=== PATIENT | female | born 1955 | race African-American/Black ===

== ENCOUNTER 2019-05-24 18:51 | Inpatient (IN) | payer OTHER ==
[2019-05-24 19:58] LABS: Protime INR 1.15
[2019-05-24] MEDS ORDERED: METHYLPREDNISOLONE 125 MG INJ ONE (19:58)
[2019-05-24] MEDS ORDERED: ALBUTEROL 2.5 MG/3 ML NEB SOL ONE (19:58)
[2019-05-24] MEDS ORDERED: IPRATROPIUM BROM 0.5MG/2.5ML ONE (19:58)
[2019-05-24 19:59] LABS: Absolute Lymphocytes (CBC) 1.1 K/uL (0.7-4.9); Basophils % 0.7 % (0-1.3); Hematocrit 37.2 % (36.0-45.0); Lymphocytes % 20.4 % (15.3-44.8); MPV 10.3 fL (7.6-11.3); RBC Red Blood Cell Count 3.95 M/uL (3.86-4.86)
--- NOTE | 2019-05-24 20:01 | RAD REPORT ---
EXAM DESCRIPTION: [place] Single View05/24/2019 7:43 pm CLINICAL HISTORY: Chest pain COMPARISON: 2017 FINDINGS: Mild bilateral pulmonary opacities The heart is moderately to markedly enlarged IMPRESSION: Mild CHF
[2019-05-24 20:09] LABS: Albumin 3.7 g/dL (3.4-5.0); Bilirubin Direct 0.1 mg/dL (0-0.2); Bilirubin Total 0.4 mg/dL (0.2-1.0); Magnesium 2.1 mg/dL (1.8-2.4); Potassium 4.2 mmol/L (3.5-5.1); Protein, Total 8.5 g/dL (6.4-8.2); Troponin (Emerg Dept Use Only) 0.12 ng/mL (0.0-0.045)
--- NOTE | 2019-05-24 20:10 | ER ---
Nurse's Notes [facility] Name: Mellisa Patterson Age: 64 yrs Sex: Female : 1955 Arrival Date: 05/24/2019 Time: 18:54 Bed 20 Private MD: Eduar Plascencia Diagnosis: Dyspnea;Unspecified combined systolic (congestive) and diastolic (congestive) heart failure;Essential (primary) hypertension;Asthma;Hypoxemia;Obesity, unspecified Presentation: 05/24 19:06 Presenting complaint: SOB x 1 week. Seen by PCP las week and started on Entresto for a hb fib. Transition of care: patient was not received from another setting of care. Onset of symptoms was May 24, 2019. Risk Assessment: Do you want to hurt yourself or someone else? Patient reports no desire to harm self or others. Care prior to arrival: None. 19:06 Method Of Arrival: Wheelchair hb 19:06 Acuity: JESI 3 hb 19:40 Initial Sepsis Screen: Does the patient meet any 2 criteria? RR > 20 per min. No. rr5 Patient's initial sepsis screen is negative. Does the patient have a suspected source of infection? Yes: Skin breakdown/wound. Triage Assessment: 19:30 Respiratory: Reports shortness of breath the patient has mild shortness of breath. rr5 Historical: - Allergies: 19:08 insect venom; hb - Home Meds: 19:51 amiodarone 200 mg oral tab 2 times per day [Active]; allopurinol 300 mg Oral tab 1 tab rr5 once daily [Active]; aspirin 81 mg Oral TbEC [Active]; calcium + D3 [Active]; clopidogrel 75 mg oral tab 1 tab once daily [Active]; clonidine HCl 0.1 mg oral tab 1 tab 3 times per day [Active]; carvedilol 25 mg Oral tab 1 tab three times a day [Active]; cyclobenzaprine 10 mg Oral tab 1 tab 3 times per day [Active]; D3 vitamin [Active]; Xopenex 1.25 mg/3 mL Nebulizer nebu 3 mL every 6 hours [Active]; Triamcinolone Acetonide [place] [Active]; furosemide 60 mg Oral tab [Active]; hydralazine 50 mg Oral tab 1 tab three times a day [Active]; hydroxyzine HCl 25 mg Oral tab 1 tab 3 times per day [Active]; hydro DP syrup [Active]; lidocaine 5 % ointment [Active]; magnesium oxide 250 mg Oral tab [Active]; Nitrostat 0.4 mg SL subl [Active]; Lidex Topical [Active]; potassium chloride 10 mEq Oral cpER [Active]; Entresto oral oral [Active]; Santyl Topical [Active]; sulfadiazine miscellaneous [Active]; Super B-50 Complex oral oral [Active]; losartan oral oral [Active]; Vitamin E Oral [Active]; Xarelto 15 mg oral tab [Active]; - PMHx: 19:51 CHF; Gout; Hypertension; venous insufficiency; wounds; Bronchitis; Atrial Fib; rr5 - PSHx: 19:51 ; ectopic ; blood clot removal left leg; torn artery left leg; rr5 - Immunization history:: Adult Immunizations up to date. - Social history:: Smoking status: Patient uses tobacco products, 1/4 pack a day, Patient/guardian denies using alcohol, street drugs. - Ebola Screening: : Patient negative for fever greater than or equal to 101.5 degrees Fahrenheit, and additional compatible Ebola Virus Disease symptoms Patient denies exposure to infectious person Patient denies travel to an Ebola-affected area in the 21 days before illness onset. Screenin:53 Abuse screen: Denies threats or abuse. Denies injuries from another. Nutritional rr5 screening: No deficits noted. Tuberculosis screening: No symptoms or risk factors identified. Fall Risk IV access (20 points). Total [place] Fall Scale indicates No Risk (0-24 pts). Assessment: 19:30 General: Appears uncomfortable, mild distress. Behavior is calm, cooperative, rr5 appropriate for age. 19:30 Pain: Complains of pain in chest Pain does not radiate. Pain currently is 8 out of 10 rr5 on a pain scale. Quality of pain is described as aching, Pain began gradually, Is intermittent. Neuro: Level of Consciousness is awake, alert, obeys commands, Oriented to person, place, time, situation, Appropriate for age. Cardiovascular: Reports chest pain, shortness of breath, high blood pressure Capillary refill < 3 seconds Patient's skin is warm and dry. Rhythm is sinus bradycardia. Respiratory: Airway is patent Respiratory effort is shallow, Respiratory pattern is tachypnea Breath sounds with wheezes. GI: No signs and/or symptoms were reported involving the gastrointestinal system. : No signs and/or symptoms were reported regarding the genitourinary system. EENT: No signs and/or symptoms were reported regarding the EENT system. Derm: Skin is dry, Skin temperature is warm Wound noted left leg Wound is swelling at left leg post surgical vascular operation. Musculoskeletal: Swelling present in left leg. 20:50 Reassessment: Patient appears in no apparent distress at this time. Patient is alert, rr5 oriented x 3, equal unlabored respirations, skin warm/dry/pink. much better now as verbalized Patient states symptoms have improved. 21:30 Reassessment: able to go to restroom steady gait noted. patient refused for pereira rr5 catheter. 22:00 Reassessment: Patient appears in no apparent distress at this time. hospitalist came rr5 and examined the patient. patient refused to be admitted. hospitalist talked to dr. Nolasco, ED provider encourage the patient to stay in the hospital. Patient states symptoms have improved. 22:40 Reassessment: Patient appears in no apparent distress at this time. Patient is alert, rr5 oriented x 3, equal unlabored respirations, skin warm/dry/pink. awaiting for room assignment Patient states feeling better. Patient states symptoms have improved. 23:15 Reassessment: Patient appears in no apparent distress at this time. Patient is alert, rr5 oriented x 3, equal unlabored respirations, skin warm/dry/pink. 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 no complaints made. Vital Signs: 19:08 BP 197 / 108; Pulse 53; Resp 24; Temp 97.5; Pulse Ox 94% on R/A; Weight 123.38 kg; hb Height 5 ft. 7 in. (170.18 cm); Pain 8/10; 20:15 BP 201 / 105; Pulse 58; Resp 26; Pulse Ox 98% on 15% Nebulizer Mask; rr5 21:00 BP 199 / 105; Pulse 57; Resp 23; Pulse Ox 98% on 2 lpm NC; rr5 21:50 BP 195 / 110; Pulse 55; Resp 24; Temp 97.8; Pulse Ox 99% on 2 lpm NC; rr5 22:30 BP 161 / 95; Pulse 61; Resp 25; Pulse Ox 98% on 2 lpm NC; rr5 22:58 BP 157 / 93; Pulse 58; Resp 22; Temp 98.7; Pulse Ox 98% on R/A; rr5 19:08 Body Mass Index 42.60 (123.38 kg, 170.18 cm) hb ED Course: 18:54 Patient arrived in ED. mr 18:54 Eduar Plascencia MD is Private Physician. mr 19:06 Arm band placed on. hb 19:08 Triage completed. hb 19:09 Bhavik Rainey, JOSE LUIS is Primary Nurse. rr5 19:17 Jeffrey Nolasco MD is Attending Physician. demetrius 19:30 Patient has correct armband on for positive identification. Placed in gown. Bed in low rr5 position. Call light in reach. Side rails up X2. potline monitor on. Pulse ox on. NIBP on. 19:30 Inserted saline lock: 20 gauge in right antecubital area, using aseptic technique. ds4 Blood collected. 19:35 EKG done, by ED staff, reviewed by Jeffrey Nolasco MD. rr5 19:40 Basic Metabolic Panel Sent. ds4 19:40 CBC with Diff Sent. ds4 19:40 LFT's Sent. ds4 19:40 Magnesium Sent. ds4 19:40 NT PRO-BNP Sent. ds4 19:40 PT-INR Sent. ds4 19:40 Troponin (emerg Dept Use Only) Sent. ds4 19:43 XRAY Chest (1 view) In Process Unspecified. EDMS 20:07 Thompson Carrillo is Hospitalizing Provider. demetrius 22:59 No provider procedures requiring assistance completed. Patient admitted, IV remains in rr5 place. intact, No redness/swelling at site. Administered Medications: 20:00 Drug: AtroVENT Aerosol 0.5 mg Route: Inhalation; rr5 22:00 Follow up: Response: No adverse reaction; Wheezing diminished rr5 20:00 Drug: Albuterol 2.5 mg Route: Inhalation; rr5 21:00 Follow up: Response: No adverse reaction; Wheezing diminished rr5 20:00 Drug: Albuterol 2.5 mg Route: Inhalation; rr5 20:00 Drug: Albuterol 2.5 mg Route: Inhalation; rr5 20:03 Drug: SOLU-Medrol 125 mg Route: IVP; Site: right antecubital; rr5 21:00 Follow up: Response: No adverse reaction rr5 20:25 Drug: Lasix 40 mg Route: IVP; Site: right antecubital; rr5 21:25 Follow up: Response: No adverse reaction rr5 20:30 Drug: hydrALAZINE 10 mg Route: IV; Rate: per protocol; Site: right antecubital; rr5 21:30 Follow up: Response: No adverse reaction; Blood pressure is lowered; IV Status: rr5 Completed infusion 20:35 Drug: Nitro-Bid Ointment 2 % 1 inches {Note: left.} Route: Transdermal; Site: anterior rr5 chest wall; 21:35 Follow up: Response: No adverse reaction rr5 20:43 CANCELLED (Other Intervention Used): Xopenex 1.25 mg Inhalation once rr5 21:50 Drug: HydrALAZINE 25 mg Route: PO; rr5 22:49 Follow up: Response: No adverse reaction; Blood pressure is lowered rr5 21:51 Drug: hydrALAZINE 10 mg Route: IV; Rate: per protocol; Site: right antecubital; rr5 22:48 Follow up: Response: Blood sugar is lowered; IV Status: Completed infusion rr5 21:55 Drug: Tylenol 1000 mg Route: PO; rr5 22:51 Follow up: Response: No adverse reaction; Pain is decreased rr5 Intake: 23:20 3x voided post lasix rr5 Output: 23:20 Urine: 1100ml (Voided); Total: 1100ml. rr5 23:20 3x voided post lasix rr5 Outcome: 20:08 Decision to Hospitalize by Provider. demetrius 23:00 Instructed on the need for admit. rr5 23:15 Admitted to Tele accompanied by corbin, via wheelchair, room 425, with chart, Report rr5 called to daily 23:15 Condition: stable 05/25 00:17 Patient left the ED. rr5 Signatures: Dispatcher [employer] Jeffrey Grossman MD MD cha Rivera, Mary Diana, Thad ds4 Alexus Coppola, JOSE LUIS RN Bhavik Manzano RN RN rr5
--- NOTE | 2019-05-24 20:10 | EDPHYS ---
Physician Documentation [facility] Name: Mellisa Patterson Age: 64 yrs Sex: Female : 1955 Arrival Date: 05/24/2019 Time: 18:54 Bed 20 Private MD: Eduar Plascencia ED Physician Jeffrey Nolasco HPI: 05/24 20:04 This 64 yrs old Black Female presents to ER via Wheelchair with complaints of Breathing demetrius Difficulty, High Blood Pressure. 20:04 The patient has shortness of breath at rest, with light activity. Onset: The demetrius symptoms/episode began/occurred 2 day(s) ago. Duration: The symptoms are continuous, and are steadily getting worse. The patient's shortness of breath is aggravated by light activity, supine position. Associated signs and symptoms: The patient has no apparent associated signs or symptoms. Severity of symptoms: At their worst the symptoms were moderate in the emergency department the symptoms are unchanged. The patient has not experienced similar symptoms in the past. Historical: - Allergies: 19:08 insect venom; hb - Home Meds: 19:51 amiodarone 200 mg oral tab 2 times per day [Active]; allopurinol 300 mg Oral tab 1 tab rr5 once daily [Active]; aspirin 81 mg Oral TbEC [Active]; calcium + D3 [Active]; clopidogrel 75 mg oral tab 1 tab once daily [Active]; clonidine HCl 0.1 mg oral tab 1 tab 3 times per day [Active]; carvedilol 25 mg Oral tab 1 tab three times a day [Active]; cyclobenzaprine 10 mg Oral tab 1 tab 3 times per day [Active]; D3 vitamin [Active]; Xopenex 1.25 mg/3 mL Nebulizer nebu 3 mL every 6 hours [Active]; Triamcinolone Acetonide [place] [Active]; furosemide 60 mg Oral tab [Active]; hydralazine 50 mg Oral tab 1 tab three times a day [Active]; hydroxyzine HCl 25 mg Oral tab 1 tab 3 times per day [Active]; hydro DP syrup [Active]; lidocaine 5 % ointment [Active]; magnesium oxide 250 mg Oral tab [Active]; Nitrostat 0.4 mg SL subl [Active]; Lidex Topical [Active]; potassium chloride 10 mEq Oral cpER [Active]; Entresto oral oral [Active]; Santyl Topical [Active]; sulfadiazine miscellaneous [Active]; Super B-50 Complex oral oral [Active]; losartan oral oral [Active]; Vitamin E Oral [Active]; Xarelto 15 mg oral tab [Active]; - PMHx: 19:51 CHF; Gout; Hypertension; venous insufficiency; wounds; Bronchitis; Atrial Fib; rr5 - PSHx: 19:51 ; ectopic ; blood clot removal left leg; torn artery left leg; rr5 - Immunization history:: Adult Immunizations up to date. - Social history:: Smoking status: Patient uses tobacco products, 1/4 pack a day, Patient/guardian denies using alcohol, street drugs. - Ebola Screening: : Patient negative for fever greater than or equal to 101.5 degrees Fahrenheit, and additional compatible Ebola Virus Disease symptoms Patient denies exposure to infectious person Patient denies travel to an Ebola-affected area in the 21 days before illness onset. ROS: 20:05 Constitutional: Negative for fever, chills, and weight loss, Eyes: Negative for injury, demetrius pain, redness, and discharge, ENT: Negative for injury, pain, and discharge, Neck: Negative for injury, pain, and swelling, Abdomen/GI: Negative for abdominal pain, nausea, vomiting, diarrhea, and constipation, Back: Negative for injury and pain, : Negative for injury, bleeding, discharge, and swelling, MS/Extremity: Negative for injury and deformity, Skin: Negative for injury, rash, and discoloration, Neuro: Negative for headache, weakness, numbness, tingling, and seizure, Psych: Negative for depression, anxiety, suicide ideation, homicidal ideation, and hallucinations, Allergy/Immunology: Negative for hives, rash, and allergies, Endocrine: Negative for neck swelling, polydipsia, polyuria, polyphagia, and marked weight changes, Hematologic/Lymphatic: Negative for swollen nodes, abnormal bleeding, and unusual bruising. 20:05 Cardiovascular: Positive for chest pain, with cough. 20:05 Respiratory: Positive for cough, shortness of breath, on exertion. wheezing. Exam: 20:05 Constitutional: This is a well developed, well nourished patient who is awake, alert, demetrius and in no acute distress. Head/Face: Normocephalic, atraumatic. Eyes: Pupils equal round and reactive to light, extra-ocular motions intact. Lids and lashes normal. Conjunctiva and sclera are non-icteric and not injected. Cornea within normal limits. Periorbital areas with no swelling, redness, or edema. ENT: Nares patent. No nasal discharge, no septal abnormalities noted. Tympanic membranes are normal and external auditory canals are clear. Oropharynx with no redness, swelling, or masses, exudates, or evidence of obstruction, uvula midline. Mucous membranes moist. Neck: Trachea midline, no thyromegaly or masses palpated, and no cervical lymphadenopathy. Supple, full range of motion without nuchal rigidity, or vertebral point tenderness. No Meningismus. Chest/axilla: Normal chest wall appearance and motion. Nontender with no deformity. No lesions are appreciated. Abdomen/GI: Soft, non-tender, with normal bowel sounds. No distension or tympany. No guarding or rebound. No evidence of tenderness throughout. Back: No spinal tenderness. No costovertebral tenderness. Full range of motion. Female : Normal external genitalia. Skin: Warm, dry with normal turgor. Normal color with no rashes, no lesions, and no evidence of cellulitis. MS/ Extremity: Pulses equal, no cyanosis. Neurovascular intact. Full, normal range of motion. Neuro: Awake and alert, GCS 15, oriented to person, place, time, and situation. Cranial nerves II-XII grossly intact. Motor strength 5/5 in all extremities. Sensory grossly intact. Cerebellar exam normal. Normal gait. Psych: Awake, alert, with orientation to person, place and time. Behavior, mood, and affect are within normal limits. 20:05 Cardiovascular: Rate: tachycardic, Rhythm: regular, Pulses: Pulses are 4+ in bilateral radial, brachial, femoral, popliteal, posterior tibial and and dorsalis pedis arteries.. Heart sounds: normal, Edema: 2+ edema to level of left midcalf and right midcalf, JVD: is noted bilaterally, to 2 cm. Vital Signs: 19:08 BP 197 / 108; Pulse 53; Resp 24; Temp 97.5; Pulse Ox 94% on R/A; Weight 123.38 kg; hb Height 5 ft. 7 in. (170.18 cm); Pain 8/10; 20:15 BP 201 / 105; Pulse 58; Resp 26; Pulse Ox 98% on 15% Nebulizer Mask; rr5 21:00 BP 199 / 105; Pulse 57; Resp 23; Pulse Ox 98% on 2 lpm NC; rr5 21:50 BP 195 / 110; Pulse 55; Resp 24; Temp 97.8; Pulse Ox 99% on 2 lpm NC; rr5 22:30 BP 161 / 95; Pulse 61; Resp 25; Pulse Ox 98% on 2 lpm NC; rr5 22:58 BP 157 / 93; Pulse 58; Resp 22; Temp 98.7; Pulse Ox 98% on R/A; rr5 19:08 Body Mass Index 42.60 (123.38 kg, 170.18 cm) hb MDM: 19:17 Patient medically screened. [facility] 20:06 Data reviewed: vital signs, nurses notes, lab test result(s), EKG, radiologic studies, demetrius plain films. 05/24 19:22 Order name: Basic Metabolic Panel; Complete Time: 21:25 ds4 05/24 19:22 Order name: CBC with Diff; Complete Time: 20:01 ds4 05/24 19:22 Order name: LFT's; Complete Time: 21:25 ds4 05/24 19:22 Order name: Magnesium; Complete Time: 21:25 ds4 05/24 19:22 Order name: NT PRO-BNP; Complete Time: 21:25 ds4 05/24 19:22 Order name: PT-INR; Complete Time: 20:10 ds4 05/24 19:22 Order name: Troponin (emerg Dept Use Only); Complete Time: 21:25 ds4 05/24 19:22 Order name: XRAY Chest (1 view); Complete Time: 20:10 ds4 05/24 20:13 Order name: Lipase; Complete Time: 21:25 EDMS 05/24 21:12 Order name: Urine Dipstick--Ancillary (enter results) cm6 05/24 21:28 Order name: Urine Microscopic Only rr5 05/24 19:22 Order name: EKG; Complete Time: 19:23 ds4 05/24 19:22 Order name: Cardiac monitoring; Complete Time: 19:39 ds4 05/24 19:22 Order name: EKG - Nurse/Tech; Complete Time: 19:39 ds4 05/24 19:22 Order name: IV Saline Lock; Complete Time: 19:39 ds4 05/24 19:22 Order name: Labs collected and sent; Complete Time: 19:39 ds4 05/24 19:22 Order name: O2 Per Protocol; Complete Time: 19:39 ds4 05/24 19:22 Order name: O2 Sat Monitoring; Complete Time: 19:39 ds4 05/24 22:22 Order name: CONS Physician Consult EDAL 05/24 20:04 Order name: [place]; Complete Time: 21:28 demetrius Administered Medications: 20:00 Drug: AtroVENT Aerosol 0.5 mg Route: Inhalation; rr5 22:00 Follow up: Response: No adverse reaction; Wheezing diminished rr5 20:00 Drug: Albuterol 2.5 mg Route: Inhalation; rr5 21:00 Follow up: Response: No adverse reaction; Wheezing diminished rr5 20:00 Drug: Albuterol 2.5 mg Route: Inhalation; rr5 20:00 Drug: Albuterol 2.5 mg Route: Inhalation; rr5 20:03 Drug: SOLU-Medrol 125 mg Route: IVP; Site: right antecubital; rr5 21:00 Follow up: Response: No adverse reaction rr5 20:25 Drug: Lasix 40 mg Route: IVP; Site: right antecubital; rr5 21:25 Follow up: Response: No adverse reaction rr5 20:30 Drug: hydrALAZINE 10 mg Route: IV; Rate: per protocol; Site: right antecubital; rr5 21:30 Follow up: Response: No adverse reaction; Blood pressure is lowered; IV Status: rr5 Completed infusion 20:35 Drug: Nitro-Bid Ointment 2 % 1 inches {Note: left.} Route: Transdermal; Site: anterior rr5 chest wall; 21:35 Follow up: Response: No adverse reaction rr5 20:43 CANCELLED (Other Intervention Used): Xopenex 1.25 mg Inhalation once rr5 21:50 Drug: HydrALAZINE 25 mg Route: PO; rr5 22:49 Follow up: Response: No adverse reaction; Blood pressure is lowered rr5 21:51 Drug: hydrALAZINE 10 mg Route: IV; Rate: per protocol; Site: right antecubital; rr5 22:48 Follow up: Response: Blood sugar is lowered; IV Status: Completed infusion rr5 21:55 Drug: Tylenol 1000 mg Route: PO; rr5 22:51 Follow up: Response: No adverse reaction; Pain is decreased rr5 Disposition: 05/24/19 20:08 Hospitalization ordered by Thompson Carrillo for Inpatient Admission. Preliminary diagnosis are Dyspnea, Unspecified combined systolic (congestive) and diastolic (congestive) heart failure, Essential (primary) hypertension, Asthma, Hypoxemia, Obesity, unspecified. - Bed requested for Telemetry/MedSurg (Inpatient). - Status is Inpatient Admission. rr5 - Condition is Fair. - Problem is new. - Symptoms have improved. UTI on Admission? No Signatures: Dispatcher [employer] [facility] Chinyere Preciado RN RN Jeffrey Walden MD MD cha Swanson, Donovan ds4 Alexus Coppola RN RN hb Roque, Raymond, RN RN rr5 Corrections: (The following items were deleted from the chart) 20:11 20:08 Hospitalization Ordered by Thompson Carrillo for Inpatient Admission. Preliminary demetrius diagnosis is Dyspnea; Unspecified combined systolic (congestive) and diastolic (congestive) heart failure; Essential (primary) hypertension; Asthma. Bed requested for Telemetry/MedSurg (Inpatient). Status is Inpatient Admission. Condition is Fair. Problem is new. Symptoms have improved. UTI on Admission? No. demetrius 20:13 20:01 LIPASE+C.LAB.BRZ ordered. [facility] 20:43 20:10 Xopenex 1.25 mg Inhalation once ordered. [facility] rr5 22:39 20:11 05/24/2019 20:08 Hospitalization Ordered by Thompson Carrillo for Inpatient dw Admission. Preliminary diagnosis is Dyspnea; Unspecified combined systolic (congestive) and diastolic (congestive) heart failure; Essential (primary) hypertension; Asthma; Hypoxemia; Obesity, unspecified. Bed requested for Telemetry/MedSurg (Inpatient). Status is Inpatient Admission. Condition is Fair. Problem is new. Symptoms have improved. UTI on Admission? No. demetrius 05/25 00:17 05/24 22:39 05/24/2019 20:08 Hospitalization Ordered by Thompson Carrillo for Inpatient rr5 Admission. Preliminary diagnosis is Dyspnea; Unspecified combined systolic (congestive) and diastolic (congestive) heart failure; Essential (primary) hypertension; Asthma; Hypoxemia; Obesity, unspecified. Bed requested for Telemetry/MedSurg (Inpatient). Status is Inpatient Admission. Condition is Fair. Problem is new. Symptoms have improved. UTI on Admission? No. dw
[2019-05-24] MEDS ORDERED: NITROGLYCERIN 1 GM PKT TD ONE (20:20)
[2019-05-24] MEDS ORDERED: LEVALBUTEROL 1.25 MG/3 ML NEB ONE (20:20)
[2019-05-24] MEDS ORDERED: FUROSEMIDE 40 MG/4 ML VIAL ONE (20:21)
[2019-05-24] MEDS ORDERED: HYDRALAZINE HCL 20 MG/ML VIAL ONE ×2 (20:21→21:35)
[2019-05-24] MEDS ORDERED: hydroCHLOROthiazide 25 MG TAB ONE (21:36)
[2019-05-24] MEDS ORDERED: ACETAMINOPHEN 500 MG TAB ONE (21:46)
[2019-05-24 21:57] LABS: Urine Blood NEGATIVE (NEG); Urine Glucose NEGATIVE (NEG); Urine Protein NEGATIVE (NEG)
[2019-05-24 22:09] LABS: Urine Amorphous Sediment 1+ /HPF (NONE SEEN); Urine Bacteria <20 /HPF (<20); Urine Culture Reflex Order NOT NEEDED; Urine RBC <5 /HPF (NONE SEEN)
[2019-05-25] MEDS ORDERED: ONDANSETRON 4 MG/2 ML VIAL IV PRN (00:31)
[2019-05-25] MEDS ORDERED: IPRATROPIUM BROM 0.5MG/2.5ML NEB PRN (00:31)
[2019-05-25] MEDS ORDERED: MORPHINE 4 MG/ML SYR IV PRN (00:31)
[2019-05-25] MEDS ORDERED: ALBUTEROL 2.5 MG/3 ML NEB SOL NEB PRN (00:31)
--- NOTE | 2019-05-25 01:31 | P.HP ---
Certification for Inpatient Patient admitted to: Observation With expected LOS: <2 Midnights Practitioner: I am a practitioner with admitting privileges, knowledge of patient current condition, hospital course, and medical plan of care. Services: Services provided to patient in accordance with Admission requirements found in Title 42 Section 412.3 of the Code of Federal Regulations Patient History Date of Service: 05/29/19 Reason for admission: Shortness of breath History of Present Illness: 64-year-old woman with a history of congestive heart failure, hypertension, obstructive sleep apnea, chronic lymphedema of lower extremities, chronic left lower extremity ulcer presented to the emergency department with a complaint of short shortness of breath which has been progressively worse over the past 1 week. She saw her PCP last week, had an echocardiogram done and was started on Entresto. Her shortness of breath progressed, she later developed orthopnea and dyspnea at rest. In the ED, chest x-ray demonstrated cardiomegaly and CHF. Her initial troponin also mildly elevated to 0.12. Patient is placed under observation for further treatment of CHF. Allergies insect venom Adverse Reaction (Verified 05/25/19 00:45) Anaphylaxis Home Medications: Allopurinol [Zyloprim] 300 mg PO DAILY 05/25/19 Amiodarone HCl [Cordarone Tab] 200 mg PO BID 05/25/19 Aspirin [Aspir-Low] 81 mg PO DAILY 05/25/19 Budesonide/Formoterol Fumarate [Symbicort 160-4.5 Mcg Inhaler] 1 puff IH PRN PRN 05/25/19 Calcium Carbonate/Vitamin D3 [Calcium 600-Vit D3 500 Softgel] 1 each PO DAILY Carvedilol [Coreg] 25 mg PO TID 05/25/19 Cholecalciferol (Vitamin D3) [Vitamin D3] 1,000 unit PO BID 05/25/19 Ciprofloxacin HCl [Ciprofloxacin 0.3% Ophth Bianca] 2 drops OPTH PRN PRN 05/25/19 Clonidine HCl [Catapres] 0.1 mg PO TID 05/25/19 Clopidogrel Bisulfate [Plavix] 75 mg PO DAILY 05/25/19 Collagenase [Santyl Ointment] 1 [place]ari[place] TP PRN PRN 05/25/19 Cyclobenzaprine [Flexeril] 10 mg PO Q8H PRN 05/25/19 Furosemide [Lasix] 60 mg PO DAILY 05/25/19 Hydralazine HCl 50 mg PO TID 05/25/19 Hydroxyzine HCl [Atarax] 25 mg PO Q8H 05/25/19 Levalbuterol [Xopenex] 0.63 mg IH Q6H 05/25/19 Losartan Potassium [Cozaar] 50 mg PO DAILY 05/25/19 Magnesium Oxide [Magnesium] 250 mg PO DAILY 05/25/19 Nitroglycerin [Nitrostat] 0.4 mg SL Q5M PRN 05/25/19 Potassium Chloride [Klor-Con 10] 10 meq PO BID 05/25/19 Pregabalin [Lyrica] 50 mg PO DAILY 05/25/19 Rivaroxaban [Xarelto] 15 mg PO DAILY 05/25/19 Triamcinolone 0.1% Oint [Kenalog 0.1% Ointment] 1 appl TOP BID PRN 05/25/19 Zinc Sulfate [Zinc Sulfate*] 220 mg PO DAILY 05/25/19 - Past Medical/Surgical History Diabetic: No -: Obstructive sleep apnea -: HTN -: CHF -: Gout -: Venous insufficiency -: Tobacco abuse -: Morbid obesity -: Skin graft -: x2 -: vein removal on R leg (2014) Psychosocial/ Personal History: The patient is . - Family History Mother -: Diabetes Notes: Alzheimer's Father -: Stroke - Social History Alcohol use: No CD- Drugs: Yes Caffeine use: Yes Review of Systems Other: General: No fever, no malaise, no unintentional weight loss. Eyes: No eye discharge, CVS: No chest pain, no palpitation, no lightheadedness. GI: No abdominal pain, no nausea no vomit, no constipation, no diarrhea. Genitourinary: No dysuria, no urinary frequency, no incontinence, no hematuria. Musculoskeletal: No joint pains, or joint swelling, no gait instability. Neurology: No headache, no asymmetric, weakness, no problem with swallowing. Except as documented, all other systems reviewed and negative. Physical Examination - Physical Exam General: Alert, In no apparent distress, Oriented x3 HEENT: Normocephalic, Mucous membr. moist/pink, Sclerae nonicteric Neck: Supple, JVD not distended, No Thyromegaly Respiratory: Clear to auscultation bilaterally, Normal air movement Cardiovascular: Normal pulses, Regular rate/rhythm, Normal S1 S2, No murmurs, Edema (1+ right lower extremity edema, 2+ left lower extremity edema) Capillary refill: <2 Seconds Gastrointestinal: Normal bowel sounds, Soft and benign, Non-distended, No tenderness Musculoskeletal: Other (Left lower extremity lymphedema) Integumentary: Venous stasis ulcer (Large left lower extremity venostasis ulcer. ) Neurological: Normal speech, Normal strength at 5/5 x4 extr, Cranial nerves 3- 12 intact - Studies Laboratory Data (last 24 hrs) 05/24/19 20:01: Lipase Cancelled 05/24/19 19:30: PT 13.5 H, INR 1.15 05/24/19 19:30: WBC 5.6, Hgb 11.9 L, Hct 37.2, Plt Count 208 05/24/19 19:30: Sodium 142, Potassium 4.2, BUN 22 H, Creatinine 1.08, Glucose 83 , Magnesium 2.1, Total Bilirubin 0.4, AST 21, ALT 28, Alkaline Phosphatase 91, Lipase 149 Assessment and Plan - Problems (Diagnosis) (1) CHF exacerbation Current Visit: Yes Status: Acute Qualifiers: Heart failure type: diastolic Qualified Code(s): I50.33 - Acute on chronic diastolic (congestive) heart failure (2) COPD (chronic obstructive pulmonary disease) Current Visit: No Status: Chronic Qualifiers: COPD type: chronic bronchitis Chronic bronchitis type: mucopurulent Qualified Code(s): J41.1 - Mucopurulent chronic bronchitis (3) Chronic venous hypertension (idiopathic) with ulcer of left lower extremity Current Visit: No Status: Chronic (4) Elevated troponin Onset Date: 05/22/16 Current Visit: No Status: Acute (5) Lymphedema Current Visit: No Status: Acute (6) Morbid obesity with BMI of 40.0-44.9, adult Onset Date: 02/04/17 Current Visit: No Status: Chronic (7) HTN (hypertension) Onset Date: 02/04/17 Current Visit: No Status: Chronic Qualifiers: Hypertension type: essential hypertension (8) Obstructive sleep apnea Onset Date: 04/28/17 Current Visit: No Status: Chronic - Plan Place patient under observation. Trend troponin IV Lasix x2 doses and then transitioned to home dose oral Lasix Resume home antihypertensives. Hydralazine p.r.n. for BP spike Bronchodilators for COPD Oxygen as needed Consult to Dr. Jj to evaluate her chronic leg ulcer. - Advance Directives Does patient have a Living Will: No Does patient have a Durable POA for Healthcare: No
[2019-05-25] MEDS ORDERED: HYDRALAZINE HCL 20 MG/ML VIAL IV ONE (04:12)
[2019-05-25 05:50] LABS: Absolute Lymphocytes (CBC) 0.6 K/uL (0.7-4.9); Basophils % 0.3 % (0-1.3); Lymphocytes % 10.1 % (15.3-44.8); MPV 10.2 fL (7.6-11.3)
[2019-05-25 06:09] LABS: Potassium 3.8 mmol/L (3.5-5.1); Troponin I 0.11 ng/mL (0.0-0.045)
[2019-05-25] MEDS: ACETAMINOPHEN 500 MG TAB PO PRN (07:23)
[2019-05-25 07:57] LABS: Blood Morphology Comment NOT SEEN (NOT SEEN); Platelet Estimate ADEQ; Urine White Blood Cell Casts OK
[2019-05-25] MEDS: FUROSEMIDE 20 MG/ 2ML VIAL IV SCH ×2 (08:12→16:21)
[2019-05-25] MEDS: POTASSIUM 25 MEQ EFFERV TAB PO SCH ×2 (08:12→20:29)
--- NOTE | 2019-05-25 08:18 | EKG ---
Test Date: 2019-05-24 Test Time: 19:32:39 Cook Frozen Dessert: RR MEASUREMENT RESULTS: Intervals: Rate: 50 OK: 214 QRSD: 100 QT: 512 QTc: 466 [place]: P: 54 OK: 214 QRS: 12 T: 50 INTERPRETIVE STATEMENTS: Sinus bradycardia with 1st degree AV block Cannot rule out Anterior infarct, age undetermined Abnormal ECG Compared to ECG 04/27/2017 11:18:05 Myocardial infarct finding now present Sinus rhythm no longer present Prolonged QT interval no longer present Electronically Signed On 05-25-19 08:16:03 APPLIANCE MECHANIC by Hernesto Varghese
--- NOTE | 2019-05-25 08:37 | RAD REPORT ---
EXAM DESCRIPTION: [place] Single View05/25/2019 6:32 am CLINICAL HISTORY: Chest pain COMPARISON: May 14, 2019 FINDINGS: [id number] bilateral pulmonary opacities The heart is moderately to markedly enlarged IMPRESSION: CHF
[2019-05-25] MEDS ORDERED: NITROGLYCERIN 0.4 MG/TAB SL PRN (10:15)
[2019-05-25] MEDS ORDERED: CIPROFLOXACIN 0.3% ML OPHTH OPTH PRN (10:15)
[2019-05-25] MEDS: HYDRALAZINE HCL 25 MG TABLET PO SCH ×2 (13:09→20:29)
[2019-05-25] MEDS: carvediloL 25 MG TAB PO SCH ×2 (13:10→20:29)
[2019-05-25] MEDS: cloNIDine HCl 0.1 MG TAB PO SCH ×2 (13:12→20:30)
[2019-05-25] MEDS ORDERED: SILVER SULFADIAZINE 1% 25 GM TOP ONE ×2 (13:59→14:15)
--- NOTE | 2019-05-25 14:33 | EKG ---
Test Date: 2019-05-25 Test Time: 08:07:19 Claim Agent: MAXIMO MEASUREMENT RESULTS: Intervals: Rate: 62 WA: 218 QRSD: 100 QT: 462 QTc: 468 [place]: P: 44 WA: 218 QRS: -18 T: 89 INTERPRETIVE STATEMENTS: Sinus rhythm with 1st degree AV block Possible Left atrial enlargement Nonspecific ST and T wave abnormality Abnormal ECG Compared to ECG 05/24/2019 19:32:39 ST (T wave) deviation now present Sinus bradycardia no longer present Myocardial infarct finding no longer present Electronically Signed On 05-25-19 14:30:17 SLOT SUPERVISOR by Hernesto Varghese
--- NOTE | 2019-05-25 15:01 | ECHO ---
HEIGHT: 5 ft 7 in WEIGHT: 285 lb 7 oz DATE OF STUDY: 05/25/[address]: Hernesto Varghese MD 2-DIMENSIONAL: YES M.MODE: YES DOPPLER: YES COLOR FLOW: YES TDS: NO PORTABLE: NO DEFINITY: NO BUBBLE STUDY: NO DIAGNOSIS: CONGESTIVE HEART FAILURE CARDIAC HISTORY: CATHERIZATION: NO SURGERY: NO PROSTHETIC VALVE: NO PACEMAKER: NO MEASUREMENTS (cm) DIASTOLIC (NORMALS) SYSTOLIC (NORMALS) IVSd 1.2 (0.6-1.2) LA Diam 4.3 (1.9-4.0) LVEF 65% LVIDd 5.7 (3.5-5.7) LVIDs 4.0 (2.0-3.5) %FS 36% LVPWd 1.8 (0.6-1.2) Ao Diam 3.1 (2.0-3.7) 2 DIMENSIONAL ASSESSMENT: RIGHT ATRIUM: NORMAL LEFT ATRIUM: DILATED RIGHT VENTRICLE: NORMAL LEFT VENTRICLE: LEFT VENTRICULAR HYPERTROPHY TRICUSPID VALVE: NORMAL MITRAL VALVE: NORMAL PULMONIC VALVE: NORMAL AORTIC VALVE: NORMAL PERICARDIAL EFFUSION: NONE AORTIC ROOT: NORMAL LEFT VENTRICULAR WALL MOTION: NORMAL EJECTION FRACTION. DOPPLER/COLOR FLOW: NORMAL. COMMENTS: DIASTOLIC DYSFUNCTION. NORMAL EJECTION FRACTION, NO EFFUSION, LEFT ATRIAL ENLARGEMENT. LEFT VENTRICULAR HYPERTROPHY. TECHNOLOGIST: JOSEPH GROVER
[2019-05-25] MEDS: hydrOXYzine HCl 25 MG TAB PO SCH (16:21)
[2019-05-25] MEDS: AMIODARONE HCL 200 MG TAB PO SCH (20:29)
[2019-05-25] MEDS: VITAMIN D 1000 UNIT TAB PO SCH (20:30)
--- NOTE | 2019-05-25 21:31 | CON ---
Date of Consultation: 05/25/2019 Reason For Consultation: Congestive heart failure. History Of Present Illness: Ms. Patterson is a 64-year-old woman. She is known to us from previous office visit and admission. She has a history of chronic diastolic congestive heart failure, venous insufficiency with severe wounds, cared for by Dr. Jj, status post skin wrap. Has multiple debrid ements on a weekly basis. She also has a history of COPD, obesity, neuropathy, hypertension, atrial fibrillation, and gout. Came in with shortness of breath. No chest pain. No palpitation. No synco pe. Allergies: SHE IS ALLERGIC TO NSAIDS. Review of Systems: Negative. Social History: Negative. Family History: Noncontributory. Medications At Home: Allopurinol, hydralazine, amiodarone, Xopenex, aspirin, Coreg, Cozaar, clonidin e, potassium, Xarelto, Lyrica, Lasix, and Plavix. Physical Examination: General: She weighed 285 pounds. She was in no acute distress. She was feeling better. Vital Signs: Blood pressure was 183/95. HEENT: Negative. Neck: Supple without bruit, lymphadenopathy, JVD, or thyromegaly. Chest: Clear to auscultation and percussion. Cardiac: Revealed a regular rhythm and rate with S4 gallops. No murmurs or rubs. Abdomen: Obese. Extremities: Revealed venous insufficiency bilaterally. Neurologic: She was nonfocal. Skin: Dry and intact. Diagnostic Data: A troponin of 0.12 x2. Her BNP is 2683. Echo in 2017 showed decreased left ventri cular compliance. Lexiscan at that time was normal. Impression And Plan: 1.Acute on chronic diastolic congestive heart failure. We will repeat the echo. Patient needs to b e diuresed. She needs to continue Lasix and salt restriction. 2.Hypertension, poorly controlled. We can certainly go up on the dose of the Cozaar or the hydralaz ine. Her Coreg and clonidine dose are very much maxed out. 3.Elevated troponin and BNP secondary to congestive heart failure. This is not an acute syndrome. 4.Venous insufficiency. Being [facility]. 5.Gout. 6.Atrial fibrillation. This has resolved on amiodarone and Xarelto. 7.Chronic obstructive pulmonary disease. 8.Neuropathy. 9.Morbid obesity. We will continue to follow Ms. Patterson. See what her echocardiogram shows. Co ntinue diuresis. I suspect she will be going home tomorrow. JAEL/MORIAH Voice ID: [id number] Report ID: [id number]
[2019-05-26] MEDS: hydrOXYzine HCl 25 MG TAB PO SCH ×3 (01:13→17:02)
[2019-05-26] MEDS: FUROSEMIDE 20 MG/ 2ML VIAL IV SCH ×2 (08:57→17:03)
[2019-05-26] MEDS: CLOPIDOGREL 75 MG TABLET PO SCH (09:00)
[2019-05-26] MEDS: ASPIRIN EC 81 MG TAB PO SCH (09:00)
[2019-05-26] MEDS: ALLOPURINOL 300 MG TAB PO SCH (09:00)
[2019-05-26] MEDS: VITAMIN D 1000 UNIT TAB PO SCH ×2 (09:00→20:08)
[2019-05-26] MEDS: RIVAROXABAN 15 MG TABLET PO SCH (09:01)
[2019-05-26] MEDS: HYDRALAZINE HCL 25 MG TABLET PO SCH ×3 (09:01→20:08)
[2019-05-26] MEDS: cloNIDine HCl 0.1 MG TAB PO SCH ×3 (09:02→20:07)
[2019-05-26] MEDS: AMIODARONE HCL 200 MG TAB PO SCH ×2 (09:02→20:07)
[2019-05-26] MEDS: PREGABALIN 50 MG CAP PO SCH (09:03)
[2019-05-26] MEDS: LOSARTAN POTASSIUM 50 MG TABLET PO SCH (09:03)
[2019-05-26] MEDS: carvediloL 25 MG TAB PO SCH ×3 (09:03→20:07)
[2019-05-26] MEDS: POTASSIUM 25 MEQ EFFERV TAB PO SCH ×2 (09:04→20:07)
--- NOTE | 2019-05-26 09:47 | PN ---
Ms. Patterson seems to be having diuresis, stayed in normal rhythm, still has lots of edema. There a re not any changes to the regimen that I would make at this point. PAUL/MORIAH Voice ID: [id number] Report ID: [id number]
--- NOTE | 2019-05-26 13:45 | P.PN ---
Subjective Date of Service: 05/26/19 Chief Complaint: Shortness of breath Review of Systems 10-point ROS is otherwise unremarkable Physical Examination - Vital Signs Temperature: 98.0 F Blood Pressure: 124/59 Pulse: 57 Respirations: 16 Pulse Ox (%): 97 - Physical Exam General: Alert, In no apparent distress, Obese HEENT: Atraumatic, PERRLA, EOMI Neck: Supple, JVD not distended Respiratory: Normal air movement, Crackles/rales Cardiovascular: Regular rate/rhythm, Normal S1 S2 Gastrointestinal: Normal bowel sounds, No tenderness Musculoskeletal: Erythema, Tenderness Integumentary: Diabetic ulcer Neurological: Normal speech, Normal tone, Normal affect Lymphatics: No axilla or inguinal lymphadenopathy - Studies Medications List Reviewed: Yes Assessment And Plan - Current Problems (Diagnosis) (1) CHF exacerbation Current Visit: Yes Status: Acute Plan: CHF exacerbation most likely secondary to noncompliance with diet and lifestyle along with medication -currently on Lasix 40 mg b.i.d. -strict I&O's along with fluid restriction -cardiology consulted. Appreciated recommendations -echocardiogram with diastolic dysfunction -will continue to monitor patient closely and adequate diuresis Qualifiers: Heart failure type: diastolic Qualified Code(s): I50.33 - Acute on chronic diastolic (congestive) heart failure (2) COPD (chronic obstructive pulmonary disease) Current Visit: No Status: Chronic Plan: COPD stable at this time. -Duonebs, Steroids, oxygen as needed Qualifiers: COPD type: chronic bronchitis Chronic bronchitis type: mucopurulent Qualified Code(s): J41.1 - Mucopurulent chronic bronchitis (3) Chronic venous hypertension (idiopathic) with ulcer of left lower extremity Current Visit: No Status: Chronic Plan: Chronic venous hypertension with ulcer of the left lower extremity -currently no infection noted -wound care has been consulted. Appreciated recommendations (4) Morbid obesity with BMI of 40.0-44.9, adult Onset Date: 02/04/17 Current Visit: No Status: Chronic (5) PAD (peripheral artery disease) Current Visit: No Status: Chronic (6) Sleep apnea Current Visit: No Status: Chronic Plan: Using BiPAP at night Qualifiers: Sleep apnea type: obstructive Qualified Code(s): G47.33 - Obstructive sleep apnea (adult) (pediatric) (7) HTN (hypertension) Onset Date: 02/04/17 Current Visit: No Status: Chronic Plan: Restarted on home med Qualifiers: Hypertension type: essential hypertension (8) Atrial fibrillation Current Visit: Yes Status: Chronic Plan: Currently on amiodarone and xarelto Qualifiers: Atrial fibrillation type: longstanding persistent Qualified Code(s): I48.11 - Longstanding persistent atrial fibrillation Discharge Plan: Home Plan to discharge in: Greater than 2 days - Code Status/Comfort Care Code Status Assessed: Yes Critical Care: No
[2019-05-26] MEDS: ACETAMINOPHEN 500 MG TAB PO PRN (14:26)
[2019-05-27] MEDS: hydrOXYzine HCl 25 MG TAB PO SCH ×3 (00:12→16:49)
[2019-05-27] MEDS: POTASSIUM 25 MEQ EFFERV TAB PO SCH ×2 (08:23→21:58)
[2019-05-27] MEDS: RIVAROXABAN 15 MG TABLET PO SCH (08:23)
[2019-05-27] MEDS: PREGABALIN 50 MG CAP PO SCH (08:23)
[2019-05-27] MEDS: HYDRALAZINE HCL 25 MG TABLET PO SCH ×3 (08:24→21:57)
[2019-05-27] MEDS: carvediloL 25 MG TAB PO SCH ×3 (08:24→21:58)
[2019-05-27] MEDS: ASPIRIN EC 81 MG TAB PO SCH (08:24)
[2019-05-27] MEDS: ALLOPURINOL 300 MG TAB PO SCH (08:24)
[2019-05-27] MEDS: cloNIDine HCl 0.1 MG TAB PO SCH ×3 (08:24→21:57)
[2019-05-27] MEDS: AMIODARONE HCL 200 MG TAB PO SCH ×2 (08:24→21:57)
[2019-05-27] MEDS: VITAMIN D 1000 UNIT TAB PO SCH ×2 (08:24→21:58)
[2019-05-27] MEDS: LOSARTAN POTASSIUM 50 MG TABLET PO SCH (08:24)
[2019-05-27] MEDS: FUROSEMIDE 20 MG/ 2ML VIAL IV SCH ×2 (08:25→16:49)
[2019-05-27] MEDS: CLOPIDOGREL 75 MG TABLET PO SCH (08:25)
--- NOTE | 2019-05-27 11:27 | RAD REPORT ---
EXAM DESCRIPTION: RAD - Chest Single View - 05/27/2019 11:19 am CLINICAL HISTORY: SOB Chest pain. COMPARISON: Chest Single View dated 05/25/2019; Chest Single View dated 05/24/2019; Chest Pa And Lat (2 Views) dated 04/27/2017; Chest Single View dated 02/06/2017 FINDINGS: Portable technique limits examination quality. Mild interstitial pulmonary edema. The heart is significantly enlarged. No displaced fractures. IMPRESSION: Mild improvement in CHF since prior study.
--- NOTE | 2019-05-27 13:13 | P.PN ---
Subjective Date of Service: 05/27/19 Chief Complaint: Shortness of breath Subjective: No new changes, Improving Feeling better Denies any chest pain shortness of breath and cough improving Review of Systems 10-point ROS is otherwise unremarkable Physical Examination - Vital Signs Temperature: 97.7 F Blood Pressure: 127/72 Pulse: 54 Respirations: 16 Pulse Ox (%): 97 - Physical Exam General: Alert, In no apparent distress, Oriented x3 HEENT: Atraumatic, Normocephalic Neck: Supple, 2+ carotid pulse no bruit Respiratory: Normal air movement, Crackles/rales Cardiovascular: Edema, Irregular heart rate/rhythm Capillary refill: <2 Seconds Gastrointestinal: Soft and benign, Non-distended, W/out hepatosplenomegaly Musculoskeletal: No clubbing, No swelling Integumentary: No rashes, No breakdown Neurological: Normal strength at 5/5 x4 extr Lymphatics: No axilla or inguinal lymphadenopathy Urinary: Other (No bladder distention ) External genitalia: Deferred Rectal: Deferred - Studies Medications List Reviewed: Yes Assessment & Plan - Problems (Diagnosis) (1) CHF exacerbation Current Visit: Yes Status: Acute Plan: CHF exacerbation most likely secondary to noncompliance with diet and lifestyle along with medication on lasix strict I&O's along with fluid restriction cardiology consulted. Appreciated recommendations echocardiogram with diastolic dysfunction will monitor patient closely Discuss with the patient in detail regarding lifestyle modification discussed about fluid restriction and daily weight monitoring Qualifiers: Heart failure type: diastolic Qualified Code(s): I50.33 - Acute on chronic diastolic (congestive) heart failure (2) Atrial fibrillation Current Visit: Yes Status: Chronic Plan: On amiodarone and xarelto and coreg The monitor under telemetry Discussed in detail with the patient regarding the medications and the side effect profile Qualifiers: Atrial fibrillation type: longstanding persistent Qualified Code(s): I48.11 - Longstanding persistent atrial fibrillation (3) Abnormal renal function Onset Date: 05/22/16 Current Visit: No Status: Acute Plan: Monitor renal parameters Strict I s and Os (4) Anxiety Onset Date: 04/28/17 Current Visit: No Status: Chronic Plan: Continue home medications (5) Hypokalemia Onset Date: 05/22/16 Current Visit: No Status: Acute Plan: Potassium replacement Monitor potassium levels daily (6) Morbid obesity with BMI of 40.0-44.9, adult Onset Date: 02/04/17 Current Visit: No Status: Chronic Plan: Lifestyle modifications advised (7) COPD (chronic obstructive pulmonary disease) Current Visit: No Status: Chronic Plan: COPD stable at this time. -Duonebs, Steroids, oxygen as needed Qualifiers: COPD type: chronic bronchitis Chronic bronchitis type: mucopurulent Qualified Code(s): J41.1 - Mucopurulent chronic bronchitis Discharge Plan: Home Plan to discharge in: 48 Hours
[2019-05-27] MEDS: ACETAMINOPHEN 325 MG TABLET PO PRN (22:36)
[2019-05-28] MEDS: hydrOXYzine HCl 25 MG TAB PO SCH ×3 (01:04→16:08)
[2019-05-28 01:50] VITALS: BMI 43.9
[2019-05-28 06:31] LABS: Absolute Lymphocytes (CBC) 1.5 K/uL (0.7-4.9); Basophils % 0.3 % (0-1.3); Hematocrit 33.9 % (36.0-45.0); Lymphocytes % 33.7 % (15.3-44.8); MPV 10.2 fL (7.6-11.3); RBC Red Blood Cell Count 3.67 M/uL (3.86-4.86)
[2019-05-28 06:43] LABS: Albumin 3.2 g/dL (3.4-5.0); Bilirubin Total 0.4 mg/dL (0.2-1.0); Potassium 3.7 mmol/L (3.5-5.1)
[2019-05-28] MEDS: FUROSEMIDE 20 MG/ 2ML VIAL IV SCH ×2 (09:46→16:08)
[2019-05-28] MEDS: POTASSIUM 25 MEQ EFFERV TAB PO SCH ×2 (09:46→20:55)
[2019-05-28] MEDS: VITAMIN D 1000 UNIT TAB PO SCH ×2 (09:47→20:56)
[2019-05-28] MEDS: CLOPIDOGREL 75 MG TABLET PO SCH (09:47)
[2019-05-28] MEDS: cloNIDine HCl 0.1 MG TAB PO SCH ×3 (09:47→20:56)
[2019-05-28] MEDS: ASPIRIN EC 81 MG TAB PO SCH (09:47)
[2019-05-28] MEDS: PREGABALIN 50 MG CAP PO SCH (09:47)
[2019-05-28] MEDS: ALLOPURINOL 300 MG TAB PO SCH (09:47)
[2019-05-28] MEDS: RIVAROXABAN 15 MG TABLET PO SCH (09:47)
[2019-05-28] MEDS: LOSARTAN POTASSIUM 50 MG TABLET PO SCH (09:48)
[2019-05-28] MEDS: HYDRALAZINE HCL 25 MG TABLET PO SCH ×3 (09:48→20:57)
[2019-05-28] MEDS: AMIODARONE HCL 200 MG TAB PO SCH ×2 (09:48→20:57)
[2019-05-28] MEDS: carvediloL 25 MG TAB PO SCH ×3 (09:48→20:57)
[2019-05-28 10:16] LABS: Blood Morphology Comment NOT SEEN (NOT SEEN); Platelet Estimate ADEQ; Urine White Blood Cell Casts OK
--- NOTE | 2019-05-28 11:53 | P.PN ---
Subjective Date of Service: 05/28/19 Chief Complaint: Shortness of breath Subjective: No new changes, Ambulating, Improving Feeling better Denies any chest pain shortness of breath and cough improving Review of Systems 10-point ROS is otherwise unremarkable Musculoskeletal: Pedal edema Physical Examination - Vital Signs Temperature: 98.0 F Blood Pressure: 124/69 Pulse: 60 Respirations: 16 Pulse Ox (%): 96 - Physical Exam General: Alert, In no apparent distress, Obese HEENT: Atraumatic, Normocephalic Neck: Supple Respiratory: Clear to auscultation bilaterally, Normal air movement, Crackles/ rales Cardiovascular: Regular rate/rhythm, Normal S1 S2 Capillary refill: <2 Seconds Gastrointestinal: Soft and benign, W/out hepatosplenomegaly Musculoskeletal: No contractures, Swelling Integumentary: No rashes, No tenderness/swelling Neurological: Normal strength at 5/5 x4 extr Lymphatics: No axilla or inguinal lymphadenopathy Urinary: Other (no bladder distention ) External genitalia: Deferred Rectal: Deferred - Studies Medications List Reviewed: Yes Assessment & Plan - Problems (Diagnosis) (1) CHF exacerbation Current Visit: Yes Status: Acute Plan: CHF exacerbation most likely secondary to noncompliance with diet and lifestyle along with medication on lasix strict I&O's along with fluid restriction cardiology consulted. Appreciated recommendations echocardiogram with diastolic dysfunction will monitor patient closely Discuss with the patient in detail regarding lifestyle modification discussed about fluid restriction and daily weight monitoring Qualifiers: Heart failure type: diastolic Qualified Code(s): I50.33 - Acute on chronic diastolic (congestive) heart failure (2) Atrial fibrillation Current Visit: Yes Status: Chronic Plan: On amiodarone and xarelto and coreg The monitor under telemetry Discussed in detail with the patient regarding the medications and the side effect profile Qualifiers: Atrial fibrillation type: longstanding persistent Qualified Code(s): I48.11 - Longstanding persistent atrial fibrillation (3) Abnormal renal function Onset Date: 05/22/16 Current Visit: No Status: Acute Plan: Monitor renal parameters Strict I s and Os (4) Anxiety Onset Date: 04/28/17 Current Visit: No Status: Chronic Plan: Continue home medications (5) Hypokalemia Onset Date: 05/22/16 Current Visit: No Status: Acute Plan: Potassium replacement Monitor potassium levels daily (6) Morbid obesity with BMI of 40.0-44.9, adult Onset Date: 02/04/17 Current Visit: No Status: Chronic Plan: Lifestyle modifications advised (7) COPD (chronic obstructive pulmonary disease) Current Visit: No Status: Chronic Plan: COPD stable at this time. -Duonebs, Steroids, oxygen as needed Qualifiers: COPD type: chronic bronchitis Chronic bronchitis type: mucopurulent Qualified Code(s): J41.1 - Mucopurulent chronic bronchitis Discharge Plan: Home Plan to discharge in: 24 Hours Time Spent Managing Pts Care (In Minutes): 45
[2019-05-28] MEDS: ACETAMINOPHEN 325 MG TABLET PO PRN ×2 (12:59→21:02)
[2019-05-29] MEDS: hydrOXYzine HCl 25 MG TAB PO SCH ×2 (00:07→10:24)
[2019-05-29] MEDS ORDERED: FUROSEMIDE 40 MG TABLET PO SCH (09:00)
[2019-05-29 09:14] VITALS: O2SAT 94
[2019-05-29] MEDS: POTASSIUM 25 MEQ EFFERV TAB PO SCH (10:19)
[2019-05-29] MEDS: carvediloL 25 MG TAB PO SCH (10:21)
[2019-05-29] MEDS: cloNIDine HCl 0.1 MG TAB PO SCH (10:21)
[2019-05-29] MEDS: VITAMIN D 1000 UNIT TAB PO SCH (10:21)
--- NOTE | 2019-05-29 10:21 | RAD REPORT ---
EXAM DESCRIPTION: RAD - Chest Single View - 05/29/2019 10:10 am CLINICAL HISTORY: sob Chest pain. COMPARISON: Chest Single View dated 05/27/2019; Chest Single View dated 05/25/2019; Chest Single Vie w dated 05/24/2019; Chest Pa And Lat (2 Views) dated 04/27/2017 FINDINGS: Portable technique limits examination quality. Mild interstitial pulmonary edema. The heart is moderately enlarged in size. No displaced fractures. IMPRESSION: Mild CHF.
[2019-05-29] MEDS: PREGABALIN 50 MG CAP PO SCH (10:22)
[2019-05-29] MEDS: RIVAROXABAN 15 MG TABLET PO SCH (10:22)
[2019-05-29] MEDS: ALLOPURINOL 300 MG TAB PO SCH (10:22)
[2019-05-29] MEDS: ASPIRIN EC 81 MG TAB PO SCH (10:22)
[2019-05-29] MEDS: HYDRALAZINE HCL 25 MG TABLET PO SCH (10:22)
[2019-05-29] MEDS: CLOPIDOGREL 75 MG TABLET PO SCH (10:23)
[2019-05-29] MEDS: LOSARTAN POTASSIUM 50 MG TABLET PO SCH (10:23)
[2019-05-29] MEDS: AMIODARONE HCL 200 MG TAB PO SCH (10:24)
--- NOTE | 2019-05-29 11:12 | P.DS ---
Admission Date: 05/24/19 Discharge Date: 05/29/19 Disposition: ROUTINE DISCHARGE Discharge Condition: GOOD Reason for Admission: Shortness of breath - Problems (1) CHF exacerbation Current Visit: Yes Status: Acute Qualifiers: Heart failure type: diastolic Qualified Code(s): I50.33 - Acute on chronic diastolic (congestive) heart failure (2) Atrial fibrillation Current Visit: Yes Status: Chronic Qualifiers: Atrial fibrillation type: longstanding persistent Qualified Code(s): I48.11 - Longstanding persistent atrial fibrillation (3) Abnormal renal function Onset Date: 05/22/16 Current Visit: No Status: Acute (4) Anxiety Onset Date: 04/28/17 Current Visit: No Status: Chronic (5) Hypokalemia Onset Date: 05/22/16 Current Visit: No Status: Acute (6) Morbid obesity with BMI of 40.0-44.9, adult Onset Date: 02/04/17 Current Visit: No Status: Chronic (7) COPD (chronic obstructive pulmonary disease) Current Visit: No Status: Chronic Qualifiers: COPD type: chronic bronchitis Chronic bronchitis type: mucopurulent Qualified Code(s): J41.1 - Mucopurulent chronic bronchitis Brief History of Present Illness: 64-year-old woman with a history of congestive heart failure, hypertension, obstructive sleep apnea, chronic lymphedema of lower extremities, chronic left lower extremity ulcer presented to the emergency department with a complaint of short shortness of breath which has been progressively worse over the past 1 week. She saw her PCP last week, had an echocardiogram done and was started on Entresto. Her shortness of breath progressed, she later developed orthopnea and dyspnea at rest. In the ED, chest x-ray demonstrated cardiomegaly and CHF. Her initial troponin also mildly elevated to 0.12. Patient is admitted for further treatment of CHF. Hospital Course: Patient was admitted and was monitored closely under telemetry. She had aggressive diuresis . she was also found to be in AFib with RVR and was continued with amiodarone and beta-blockers along with Xarelto . Cardiology was consulted. Patient underwent an echocardiogram which showed normal EF with diastolic dysfunction. Antihypertensives titrated. she had stepped in and those and she responded to the treatment and has pain without oxygen support and ambulating well. Discussed in detail with the patient about the disease condition. Gave resources for CHF education . She was also the educated on daily weight measurements And adjusting lasix dosage . She verbalized understandings pain discharged home today in a stable to follow up with PCP in 1 week and also with Dr. Low chaney primary modeling agent as outpatient as early as possible. Vital Signs/Physical Exam: Temp Pulse Resp BP Pulse Ox 97.6 F 54 16 139/76 95 05/29/19 08:00 05/29/19 10:23 05/29/19 08:00 05/29/19 10:23 05/29/19 08:00 General: Alert, In no apparent distress, Obese HEENT: Atraumatic, Normocephalic Neck: Supple Respiratory: Clear to auscultation bilaterally Cardiovascular: Regular rate/rhythm Capillary refill: <2 Seconds Gastrointestinal: Soft and benign Musculoskeletal: No clubbing Neurological: Normal strength at 5/5 x4 extr Laboratory Data at Discharge: WBC 4.5 K/uL (4.3-10.9) D 05/28/19 05:33 Hgb 11.1 g/dL (12.0-15.0) L 05/28/19 05:33 Hct 33.9 % (36.0-45.0) L 05/28/19 05:33 Plt Count 202 K/uL (152-406) 05/28/19 05:33 PT 13.5 SECONDS (9.5-12.5) H 05/24/19 19:30 INR 1.15 05/24/19 19:30 Sodium 140 mmol/L (136-145) 05/28/19 05:33 Potassium 3.7 mmol/L (3.5-5.1) 05/28/19 05:33 BUN 30 mg/dL (7-18) H 05/28/19 05:33 Creatinine 1.19 mg/dL (0.55-1.3) 05/28/19 05:33 Glucose 92 mg/dL (74-106) 05/28/19 05:33 Magnesium 2.1 mg/dL (1.8-2.4) 05/24/19 19:30 Total Bilirubin 0.4 mg/dL (0.2-1.0) 05/28/19 05:33 AST 16 U/L (15-37) 05/28/19 05:33 ALT 25 U/L (12-78) 05/28/19 05:33 Alkaline Phosphatase 58 U/L (45-117) 05/28/19 05:33 Troponin I 0.11 ng/mL (0.0-0.045) H 05/25/19 05:26 Lipase Cancelled 05/24/19 20:01 Home Medications: Allopurinol [Zyloprim*] 300 mg PO DAILY 05/25/19 Amiodarone HCl [Cordarone*] 200 mg PO BID 05/25/19 Aspirin [Aspir-Low] 81 mg PO DAILY 05/25/19 Budesonide/Formoterol Fumarate [Symbicort 160-4.5 Mcg Inhaler] 1 puff IH PRN PRN 05/25/19 Calcium Carbonate/Vitamin D3 [Calcium 600-Vit D3 500 Softgel] 1 each PO DAILY Carvedilol [Coreg*] 25 mg PO TID 05/25/19 Cholecalciferol (Vitamin D3) [Vitamin D3] 1,000 unit PO BID 05/25/19 Ciprofloxacin HCl [Ciprofloxacin 0.3% Oph Bianca] 2 drops OPTH PRN PRN 05/25/19 Clonidine HCl [Catapres] 0.1 mg PO TID 05/25/19 Clopidogrel Bisulfate [Plavix*] 75 mg PO DAILY 05/25/19 Collagenase [Santyl Ointment*] 1 [place] TP PRN PRN 05/25/19 Cyclobenzaprine [Flexeril*] 10 mg PO Q8H PRN 05/25/19 Hydralazine HCl 50 mg PO TID 05/25/19 Hydroxyzine HCl [Atarax] 25 mg PO Q8H 05/25/19 Levalbuterol [Xopenex*] 0.63 mg IH Q6H 05/25/19 Losartan Potassium [Cozaar*] 50 mg PO DAILY 05/25/19 Magnesium Oxide [Magnesium] 250 mg PO DAILY 05/25/19 Nitroglycerin [Nitrostat*] 0.4 mg SL Q5M PRN 05/25/19 Potassium Chloride [Klor-Con 10] 10 meq PO BID 05/25/19 Pregabalin [Lyrica*] 50 mg PO DAILY 05/25/19 Rivaroxaban [Xarelto*] 15 mg PO DAILY 05/25/19 Triamcinolone 0.1% Oint [Kenalog 0.1% Ointment*] 1 appl TOP BID PRN 05/25/19 Zinc Sulfate [Zinc Sulfate*] 220 mg PO DAILY 05/25/19 Furosemide [Lasix*] 40 mg PO BIDL #60 tab 05/29/19 New Medications: Furosemide [Lasix*] 40 mg PO BIDL #60 tab Diet: Low sodium Activity: Ad columba Followup: JOSEPH COOMBS [UNKNOWN] - (call to Schedule appointment) Eduar Plascencia MD [Primary Care Provider] - (call to schedule appointment) Time spent managing pt's care (in minutes): 38
[2019-05-29 12:34] VITALS: BP 127/86; TEMP 98
--- NOTE | 2019-05-30 09:45 | EKG ---
Test Date: 2019-05-29 Test Time: 11:35:07 Tile Inspector: MAXIMO MEASUREMENT RESULTS: Intervals: Rate: 56 LA: 232 QRSD: 102 QT: 468 QTc: 451 Malone: P: 29 LA: 232 QRS: -20 T: 75 INTERPRETIVE STATEMENTS: Sinus bradycardia with 1st degree AV block Nonspecific T wave abnormality Abnormal ECG Compared to ECG 05/25/2019 08:07:19 T-wave abnormality now present Sinus rhythm no longer present ST (T wave) deviation no longer present Electronically Signed On 05-30-19 09:42:10 PIPE CUTTER by Hernesto Varghese
== END 2019-05-29 15:11 | disposition home or self-care (01) | DRG 292 ==
LOC: ER 18:51 → 4TH 23:22
PROVIDERS: ADMIT Internal Medicine; ATTEND Internal Medicine
DX: I11.0 Hypertensive heart disease with heart failure (principal); I48.11 Longstanding persistent atrial fibrillation; Z68.41 Body mass index [BMI] 40.0-44.9, adult; I87.312 Chronic venous hypertension (idiopathic) with ulcer of left lower extremity; L97.929 Non-pressure chronic ulcer of unspecified part of left lower leg with unspecified severity; I50.33 Acute on chronic diastolic (congestive) heart failure; R94.4 Abnormal results of kidney function studies; F41.9 Anxiety disorder, unspecified; E87.6 Hypokalemia; E66.01 Morbid (severe) obesity due to excess calories; J44.9 Chronic obstructive pulmonary disease, unspecified; Z91.11 Patient's noncompliance with dietary regimen; Z91.14 Patient's other noncompliance with medication regimen; I73.9 Peripheral vascular disease, unspecified; G47.33 Obstructive sleep apnea (adult) (pediatric)
CPT/HCPCS: 36415; 71045; 80048; 80053; 80076; 81003; 81015; 83690; 83735; 83880; 84484; 85025; 85610; 93005; 93306; 94640; 96365; 96366; 96375; 97112; 97116; 97161; 99251; 99285; J0360; J1940; J2930

== ENCOUNTER 2019-08-10 12:48 | Inpatient (IN) | payer OTHER ==
[2019-08-10] MEDS ORDERED: FUROSEMIDE 40 MG/4 ML VIAL ONE ×2 (13:55→18:15)
[2019-08-10] MEDS ORDERED: LEVALBUTEROL 1.25 MG/3 ML NEB ONE (13:55)
--- NOTE | 2019-08-10 14:18 | RAD REPORT ---
EXAM DESCRIPTION: [facility] Single View08/10/2019 2:02 pm CLINICAL HISTORY: sob COMPARISON: May 2019 FINDINGS: Mild bilateral pulmonary opacities. The heart is markedly enlarged IMPRESSION: Mild CHF
[2019-08-10 14:22] LABS: Absolute Lymphocytes (CBC) 0.8 K/uL (0.7-4.9); Basophils % 0.6 % (0-1.3); Hematocrit 36.2 % (36.0-45.0); Lymphocytes % 18.1 % (15.3-44.8); MPV 9.7 fL (7.6-11.3)
[2019-08-10 14:28] LABS: Protime INR 1.13
[2019-08-10 14:38] LABS: Potassium 3.7 mmol/L (3.5-5.1); Troponin (Emerg Dept Use Only) 0.12 ng/mL (0.0-0.045)
[2019-08-10 16:08] LABS: Blood Morphology Comment NOT SEEN (NOT SEEN); Platelet Estimate ADEQ; Urine White Blood Cell Casts DIFF
--- NOTE | 2019-08-10 16:32 | EDPHYS ---
Physician Documentation [facility] Name: Mellisa Patterson Age: 64 yrs Sex: Female : 1955 Arrival Date: 08/10/2019 Time: 12:49 Bed 24 Private MD: Eduar Plascencia ED Physician Dwight Oneal HPI: 08/10 15:01 This 64 yrs old Black Female presents to ER via Wheelchair with complaints of Shortness rn Of Breath. 15:01 The patient has shortness of breath with light activity. Onset: The symptoms/episode rn began/occurred 2 day(s) ago. Duration: The symptoms are intermittent. The patient's shortness of breath is aggravated by exertion, is alleviated by inhaler. Severity of symptoms: At their worst the symptoms were moderate in the emergency department the symptoms are unchanged. The patient has experienced similar episodes in the past. The patient has not recently seen a physician. Reports sob, worse with exertion, is chronic but worse over last 2 days, no fever, improves with inhaler but returns quickly.. Historical: - Allergies: 13:15 insect venom; ca1 - Home Meds: 15:06 allopurinol 300 mg Oral tab 1 tab once daily [Active]; amiodarone 200 mg Oral tab 2 jl7 times per day [Active]; aspirin 81 mg Oral TbEC [Active]; calcium + D3 [Active]; carvedilol 25 mg Oral tab 1 tab three times a day [Active]; clonidine HCl 0.1 mg Oral tab 1 tab 3 times per day [Active]; clopidogrel 75 mg Oral tab 1 tab once daily [Active]; cyclobenzaprine 10 mg Oral tab 1 tab 3 times per day [Active]; d3 vitamin [Active]; Entresto Oral [Active]; furosemide 60 mg Oral tab [Active]; hydralazine 50 mg Oral tab 1 tab three times a day [Active]; hydro DP syrup [Active]; hydroxyzine HCl 25 mg Oral tab 1 tab 3 times per day [Active]; Lidex Topical [Active]; lidocaine 5 % ointment [Active]; losartan Oral [Active]; magnesium oxide 250 mg Oral tab [Active]; Nitrostat 0.4 mg SL subl [Active]; potassium chloride 10 mEq Oral cpER [Active]; Santyl Topical [Active]; sulfadiazine miscellaneous [Active]; Super B-50 Complex Oral [Active]; Triamcinolone Acetonide Limestone [Active]; vitamin E Oral [Active]; Xarelto 15 mg Oral tab [Active]; Xopenex 1.25 mg/3 mL Inhl nebu 3 mL every 6 hours [Active]; - PMHx: 13:15 Atrial Fib; Bronchitis; CHF; Gout; Hypertension; venous insufficiency; wounds; ca1 - PSHx: 13:15 ; ectopic ; blood clot removal left leg; torn artery left leg; ca1 - Immunization history:: Adult Immunizations up to date, Pneumococcal vaccine is not up to date, Flu vaccine is not up to date. - Coronavirus screen:: The patient has NOT traveled to [place], [place], or [place] in the past 14 days. The patient has NOT had contact with known/suspected case of Coronavirus?. - Social history:: Smoking status: Patient reports the use of cigarette tobacco products, smokes one-half pack cigarettes per day. - Family history:: not pertinent. - Ebola Screening: : Patient negative for fever greater than or equal to 101.5 degrees Fahrenheit, and additional compatible Ebola Virus Disease symptoms Patient denies exposure to infectious person Patient denies travel to an Ebola-affected area in the 21 days before illness onset No symptoms or risks identified at this time. - Hospitalizations: : No recent hospitalization is reported. ROS: 15:01 Constitutional: Negative for fever, chills, and weight loss, Eyes: Negative for injury, rn pain, redness, and discharge, Cardiovascular: Negative for chest pain, palpitations Respiratory: Negative for pleuritic chest pain Abdomen/GI: Negative for abdominal pain, nausea, vomiting, diarrhea, and constipation, MS/Extremity: Negative for injury and deformity, Skin: Negative for injury, rash, and discoloration, Neuro: Negative for headache, weakness, numbness, tingling, and seizure. Exam: 15:01 Constitutional: This is a well developed, well nourished patient who is awake, alert rn Head/Face: Normocephalic, atraumatic. ENT: No oral swelling Cardiovascular: Regular rate and rhythm. No pulse deficits. Respiratory: + mild tachypnea, without retraction, minimal wheezing noted, diminished at bases. Abdomen/GI: soft, non-tender MS/ Extremity: Pulses equal, no cyanosis. Neuro: Awake and alert, GCS 15, oriented to person, place, time, and situation. Cranial nerves II-XII grossly intact. Motor strength 5/5 in all extremities. Sensory grossly intact. Vital Signs: 13:15 BP 166 / 83; Pulse 63; Resp 20; Temp 98.1(O); Pulse Ox 96% on R/A; Weight 129.27 kg ca1 (R); Height 5 ft. 7 in. (170.18 cm) (R); 15:04 BP 181 / 93; Pulse 64; Resp 24 S; Pulse Ox 94% on R/A; jl7 15:45 BP 164 / 83; Pulse 66; Resp 23 S; Pulse Ox 91% on R/A; jl7 16:28 Pulse Ox 91% on R/A; ss 18:52 BP 181 / 105; Pulse 71; Resp 21 S; Pulse Ox 100% on 2 lpm NC; jl7 19:52 Pulse 69; Resp 22 S; Pulse Ox 98% on R/A; jd3 13:15 Body Mass Index 44.64 (129.27 kg, 170.18 cm) ca1 MDM: 13:24 Patient medically screened. rn 16:30 Differential diagnosis: CHF exacerbation, Pneumothorax pulmonary edema. Data reviewed: rn vital signs, nurses notes, lab test result(s), EKG, radiologic studies, plain films, and as a result, I will admit patient. Test interpretation: by ED physician or midlevel provider: ECG, plain radiologic studies, CXR with mild pulmonary edema. Counseling: I had a detailed discussion with the patient and/or guardian regarding: the historical points, exam findings, and any diagnostic results supporting the discharge/admit diagnosis, lab results, radiology results, the need for further work-up and treatment in the hospital. Response to treatment: the patient's symptoms have mildly improved after treatment, and as a result, I will admit patient. Admission orders: after a detailed discussion of the patient's condition and case, the admit orders are written by me. 08/10 13:49 Order name: Basic Metabolic Panel; Complete Time: 15:54 rn 08/10 13:49 Order name: CBC with Diff; Complete Time: 16:30 rn 08/10 13:49 Order name: NT PRO-BNP; Complete Time: 15:54 rn 08/10 13:49 Order name: PT-INR; Complete Time: 14:33 rn 08/10 13:49 Order name: Troponin (emerg Dept Use Only); Complete Time: 15:54 rn 08/10 14:29 Order name: CBC Smear Scan EDMS 08/10 16:10 Order name: Manual Differential; Complete Time: 16:30 EDMS 08/10 16:59 Order name: Basic Metabolic Panel EDMS 08/10 16:59 Order name: Basic Metabolic Panel EDMS 08/10 16:59 Order name: CBC with Automated Diff EDMS 08/10 16:59 Order name: CBC with Automated Diff EDMS 08/10 16:59 Order name: Magnesium EDMS 08/10 16:59 Order name: Magnesium EDMS 08/11 00:59 Order name: Troponin I EDMI 08/10 13:49 Order name: XRAY Chest (1 view); Complete Time: 14:33 rn 08/10 13:49 Order name: EKG; Complete Time: 13:50 rn 08/10 13:49 Order name: Cardiac monitoring; Complete Time: 14:23 rn 08/10 13:49 Order name: EKG - Nurse/Tech; Complete Time: 15:08 rn 08/10 13:49 Order name: IV Saline Lock; Complete Time: 14:23 rn 08/10 13:49 Order name: Labs collected and sent; Complete Time: 14:23 rn 08/10 13:49 Order name: O2 Per Protocol; Complete Time: 14:23 rn 08/10 13:49 Order name: O2 Sat Monitoring; Complete Time: 14:23 rn 08/10 16:59 Order name: Heart Healthy EDMI Administered Medications: 14:20 Drug: Xopenex 1.25 mg Route: Inhalation; jl7 18:51 Follow up: Response: No adverse reaction jl7 14:25 Drug: Lasix 40 mg Route: IVP; Site: left antecubital; jl7 18:50 Follow up: Response: No adverse reaction jl7 18:50 Drug: Lasix 40 mg Route: IVP; Site: left antecubital; jl7 18:51 Follow up: Response: No adverse reaction jl7 Disposition: 08/10/19 16:32 Hospitalization ordered by Shari Lagunas for Inpatient Admission. Preliminary diagnosis are Dyspnea, unspecified, Hypoxemia, Unspecified combined systolic (congestive) and diastolic (congestive) heart failure, Pulmonary edema. - Bed requested for Telemetry/MedSurg (Inpatient). - Status is Inpatient Admission. ss - Condition is Stable. - Problem is an ongoing problem. - Symptoms have improved. UTI on Admission? No Signatures: Dispatcher [employer] EDChinyere Reyes RN RN dw Eli Celestin RN RN bb Dwight Oneal MD MD rn Smirch, Shelby, RN RN ss Karime Mendoza RN RN jl7 Kelley Lamb RN RN ca1 Corrections: (The following items were deleted from the chart) 20:03 16:32 Hospitalization Ordered by Shari Lagunas MD for Inpatient Admission. Preliminary bb diagnosis is Dyspnea, unspecified; Hypoxemia; Unspecified combined systolic (congestive) and diastolic (congestive) heart failure; Pulmonary edema. Bed requested for Telemetry/MedSurg (Inpatient). Status is Inpatient Admission. Condition is Stable. Problem is an ongoing problem. Symptoms have improved. UTI on Admission? No. rn 08/11 12:53 08/10 20:03 08/10/2019 16:32 Hospitalization Ordered by Shari Lagunas MD for Inpatient dw Admission. Preliminary diagnosis is Dyspnea, unspecified; Hypoxemia; Unspecified combined systolic (congestive) and diastolic (congestive) heart failure; Pulmonary edema. Bed requested for [facility] ER HOLD. Status is Inpatient Admission. Condition is Stable. Problem is an ongoing problem. Symptoms have improved. UTI on Admission? No. bb 08/11 13:51 12:53 08/10/2019 16:32 Hospitalization Ordered by Shari Lagunas MD for Inpatient ss Admission. Preliminary diagnosis is Dyspnea, unspecified; Hypoxemia; Unspecified combined systolic (congestive) and diastolic (congestive) heart failure; Pulmonary edema. Bed requested for Telemetry/MedSurg (Inpatient). Status is Inpatient Admission. Condition is Stable. Problem is an ongoing problem. Symptoms have improved. UTI on Admission? No. dw
--- NOTE | 2019-08-10 16:32 | ER ---
Nurse's Notes [facility] Name: Mellisa Patterson Age: 64 yrs Sex: Female : 1955 Arrival Date: 08/10/2019 Time: 12:49 Bed 24 Private MD: Eduar Plascencia Diagnosis: Dyspnea, unspecified;Hypoxemia;Unspecified combined systolic (congestive) and diastolic (congestive) heart failure;Pulmonary edema Presentation: 08/10 13:10 Presenting complaint: Patient states: I have CHF and I have been having trouble with ca1 the erratic weather conditions. I have a hard time breathing. I was at the wound care center and Dr. Jj said to come to the ER after they are done with my dressing changes. Denies fever, cough, congestion. Denies pain at this time. Transition of care: patient was not received from another setting of care. Onset of symptoms was August 10, 2019. Risk Assessment: Do you want to hurt yourself or someone else? Patient reports no desire to harm self or others. Initial Sepsis Screen: Does the patient meet any 2 criteria? No. Patient's initial sepsis screen is negative. Does the patient have a suspected source of infection? No. Patient's initial sepsis screen is negative. Care prior to arrival: None. 13:10 Method Of Arrival: Wheelchair ca1 13:10 Acuity: JESI 3 ca1 Triage Assessment: 19:00 Respiratory: Onset: The symptoms/episode began/occurred gradually, the patient has mild jd3 shortness of breath. Historical: - Allergies: 13:15 insect venom; ca1 - Home Meds: 15:06 allopurinol 300 mg Oral tab 1 tab once daily [Active]; amiodarone 200 mg Oral tab 2 jl7 times per day [Active]; aspirin 81 mg Oral TbEC [Active]; calcium + D3 [Active]; carvedilol 25 mg Oral tab 1 tab three times a day [Active]; clonidine HCl 0.1 mg Oral tab 1 tab 3 times per day [Active]; clopidogrel 75 mg Oral tab 1 tab once daily [Active]; cyclobenzaprine 10 mg Oral tab 1 tab 3 times per day [Active]; d3 vitamin [Active]; Entresto Oral [Active]; furosemide 60 mg Oral tab [Active]; hydralazine 50 mg Oral tab 1 tab three times a day [Active]; hydro DP syrup [Active]; hydroxyzine HCl 25 mg Oral tab 1 tab 3 times per day [Active]; Lidex Topical [Active]; lidocaine 5 % ointment [Active]; losartan Oral [Active]; magnesium oxide 250 mg Oral tab [Active]; Nitrostat 0.4 mg SL subl [Active]; potassium chloride 10 mEq Oral cpER [Active]; Santyl Topical [Active]; sulfadiazine miscellaneous [Active]; Super B-50 Complex Oral [Active]; Triamcinolone Acetonide Williams [Active]; vitamin E Oral [Active]; Xarelto 15 mg Oral tab [Active]; Xopenex 1.25 mg/3 mL Inhl nebu 3 mL every 6 hours [Active]; - PMHx: 13:15 Atrial Fib; Bronchitis; CHF; Gout; Hypertension; venous insufficiency; wounds; ca1 - PSHx: 13:15 ; ectopic ; blood clot removal left leg; torn artery left leg; ca1 - Immunization history:: Adult Immunizations up to date, Pneumococcal vaccine is not up to date, Flu vaccine is not up to date. - Coronavirus screen:: The patient has NOT traveled to [place], [place], or [place] in the past 14 days. The patient has NOT had contact with known/suspected case of Coronavirus?. - Social history:: Smoking status: Patient reports the use of cigarette tobacco products, smokes one-half pack cigarettes per day. - Family history:: not pertinent. - Ebola Screening: : Patient negative for fever greater than or equal to 101.5 degrees Fahrenheit, and additional compatible Ebola Virus Disease symptoms Patient denies exposure to infectious person Patient denies travel to an Ebola-affected area in the 21 days before illness onset No symptoms or risks identified at this time. - Hospitalizations: : No recent hospitalization is reported. Screenin:30 Abuse screen: Denies threats or abuse. Denies injuries from another. Nutritional jl7 screening: No deficits noted. Tuberculosis screening: No symptoms or risk factors identified. Fall Risk IV access (20 points). Assessment: 13:30 General: Appears in no apparent distress. uncomfortable, Behavior is calm, cooperative, jl7 appropriate for age. Pain: Denies pain. Neuro: Level of Consciousness is awake, alert, obeys commands, Oriented to person, place, time, situation. Cardiovascular: Heart tones S1 S2 present Patient's skin is warm and dry. Rhythm is regular. Respiratory: Reports shortness of breath at rest Airway is patent Respiratory effort is even, labored, Respiratory pattern is symmetrical, tachypnea audible wheezes noted. Derm: Skin is dry, Skin is normal, Skin temperature is warm. 14:30 Reassessment: Patient appears in no apparent distress at this time. No changes from 7 previously documented assessment. Patient and/or family updated on plan of care and expected duration. Pain level reassessed. Patient is alert, oriented x 3, equal unlabored respirations, skin warm/dry/pink. 16:00 Reassessment: Patient appears in no apparent distress at this time. No changes from jl7 previously documented assessment. Patient and/or family updated on plan of care and expected duration. Pain level reassessed. Patient is alert, oriented x 3, equal unlabored respirations, skin warm/dry/pink. 17:00 Reassessment: Patient appears in no apparent distress at this time. No changes from jl7 previously documented assessment. Patient and/or family updated on plan of care and expected duration. Pain level reassessed. Patient is alert, oriented x 3, equal unlabored respirations, skin warm/dry/pink. 18:00 Reassessment: Patient appears in no apparent distress at this time. No changes from jl7 previously documented assessment. Patient and/or family updated on plan of care and expected duration. Pain level reassessed. Patient is alert, oriented x 3, equal unlabored respirations, skin warm/dry/pink. 19:51 Reassessment: Patient appears in no apparent distress at this time. Patient and/or jd3 family updated on plan of care and expected duration. Pain level reassessed. Patient is alert, oriented x 3, equal unlabored respirations, skin warm/dry/pink. awaiting orders to switch pt to [facility] in [facility]. 20:15 Reassessment: pt charting continued in [facility]. [facility] Vital Signs: 13:15 BP 166 / 83; Pulse 63; Resp 20; Temp 98.1(O); Pulse Ox 96% on R/A; Weight 129.27 kg ca1 (R); Height 5 ft. 7 in. (170.18 cm) (R); 15:04 BP 181 / 93; Pulse 64; Resp 24 S; Pulse Ox 94% on R/A; jl7 15:45 BP 164 / 83; Pulse 66; Resp 23 S; Pulse Ox 91% on R/A; jl7 16:28 Pulse Ox 91% on R/A; ss 18:52 BP 181 / 105; Pulse 71; Resp 21 S; Pulse Ox 100% on 2 lpm NC; jl7 19:52 Pulse 69; Resp 22 S; Pulse Ox 98% on R/A; jd3 13:15 Body Mass Index 44.64 (129.27 kg, 170.18 cm) ca1 ED Course: 12:49 Patient arrived in ED. ag5 12:49 Eduar Plascencia MD is Private Physician. ag5 13:13 Triage completed. ca1 13:15 Arm band placed on right wrist. ca1 13:24 Dwight Oneal MD is Attending Physician. rn 13:27 Karime Mendoza RN is Primary Nurse. jl7 14:05 XRAY Chest (1 view) In Process Unspecified. EDMS 14:23 Initial lab(s) drawn, by me, sent to lab. Inserted saline lock: 20 gauge in left jl7 antecubital area, using aseptic technique. Blood collected. 14:30 Patient has correct armband on for positive identification. Placed in gown. Bed in low jl7 position. Call light in reach. Side rails up X2. ekg monitor tech on. Pulse ox on. NIBP on. Warm blanket given. 15:18 EKG done, by polygraph technician. reviewed by Dwight Oneal MD. at1 16:31 Shari Lagunas MD is Hospitalizing Provider. rn 20:15 No provider procedures requiring assistance completed. Patient admitted, IV remains in jd3 place. Administered Medications: 14:20 Drug: Xopenex 1.25 mg Route: Inhalation; jl7 18:51 Follow up: Response: No adverse reaction jl7 14:25 Drug: Lasix 40 mg Route: IVP; Site: left antecubital; jl7 18:50 Follow up: Response: No adverse reaction jl7 18:50 Drug: Lasix 40 mg Route: IVP; Site: left antecubital; jl7 18:51 Follow up: Response: No adverse reaction jl7 Outcome: 16:32 Decision to Hospitalize by Provider. rn 20:15 Admitted to ER Hold. Please see [employer] for further documentation. jd3 20:15 Condition: stable 20:15 Instructed on the need for admit, Demonstrated understanding of instructions. 08/11 13:51 Patient left the ED. Signatures: Dispatcher [employer] EDMS Dwight Oneal MD MD rn Smirch, Shelby, RN RN ss Asmita Roberson, lamination machine operator EKG Tat1 Karime Mendoza RN RN jl7 Duke Avila RN RN jd3 Kelley Lamb RN RN ca1 Yaneth Mejía ag5 Corrections: (The following items were deleted from the chart) 08/10 13:16 13:15 BP 166 / 83; Pulse 63bpm; Resp 20bpm; Pulse Ox 96% RA; Temp 98.1F Oral; 129.27 kg ca1 Reported; Height 5 ft. 7 in. Reported; BMI: 44.6; Pain 0/10; ca1 15:28 13:10 Presenting complaint: Patient states: I have CHF and I have having trouble with ca1 the erratic weather congestion. I have a hard time breathing. I was at the wound care center and Dr. Jj said to come to the ER after they are done with my dressing changes. Denies fever, cough, congestion. Denies pain at this time ca1 18:54 15:45 BP 164 / 83; Pulse 66bpm; Resp 16bpm; Spontaneous; Pulse Ox 91% RA; jl7 jl7 18:54 18:52 BP 181 / 105; Pulse 71bpm; Resp 16bpm; Spontaneous; Pulse Ox 100% 2 lpm Nasal jl7 Cannula; jl7
--- NOTE | 2019-08-10 16:57 | P.HP ---
Patient History Date of Service: 08/10/19 Reason for admission: Shortness of breath History of Present Illness: Ms Patterson is 64 y/o female with h/o CHF, BEATRICE, chronic venous stasis ulcers who presented to wound care clinic today and was referred for admission due to progressive SOB. Patient reports progressive SOB for ~1 month, orthopnea, PND, and bilateral LE edema. She has substernal chest pressure since 05/2019. Pressure is worse exertion, does not radiate and not associated with near syncope. Patient reports compliance with fluid restriction, low-salt diet and the medications. Allergies insect venom Adverse Reaction (Verified 05/25/19 00:45) Anaphylaxis Home Medications: RX: Amiodarone HCl [Cordarone*] 200 mg PO BID 05/25/19 RX: Aspirin [Aspir-Low] 81 mg PO DAILY 05/25/19 RX: Budesonide/Formoterol Fumarate [Symbicort 160-4.5 Mcg Inhaler] 1 puff IH PRN PRN 05/25/19 RX: Calcium Carbonate/Vitamin D3 [Calcium 600-Vit D3 500 Softgel] 1 each PO DAILY 05/25/19 RX: Cholecalciferol (Vitamin D3) [Vitamin D3] 1,000 unit PO BID 05/25/19 RX: Ciprofloxacin HCl [Ciprofloxacin 0.3% Ophth Bianca] 2 drops OPTH PRN PRN RX: Clonidine HCl [Catapres] 0.1 mg PO TID 05/25/19 RX: Clopidogrel Bisulfate [Plavix*] 75 mg PO DAILY 05/25/19 RX: Collagenase [Santyl Ointment*] 1 marietta TP PRN PRN 05/25/19 RX: Cyclobenzaprine [Flexeril*] 10 mg PO Q8H PRN 05/25/19 RX: Hydralazine HCl 50 mg PO TID 05/25/19 RX: Hydroxyzine HCl [Atarax] 25 mg PO Q8H 05/25/19 RX: Levalbuterol [Xopenex*] 0.63 mg IH Q6H 05/25/19 RX: Losartan Potassium [Cozaar*] 50 mg PO DAILY 05/25/19 RX: Magnesium Oxide [Magnesium] 250 mg PO DAILY 05/25/19 RX: Nitroglycerin [Nitrostat*] 0.4 mg SL Q5M PRN 05/25/19 RX: Potassium Chloride [Klor-Con 10] 10 meq PO BID 05/25/19 RX: Pregabalin [Lyrica*] 50 mg PO DAILY 05/25/19 RX: Rivaroxaban [Xarelto*] 15 mg PO DAILY 05/25/19 RX: Triamcinolone 0.1% Oint [Kenalog 0.1% Ointment*] 1 appl TOP BID PRN RX: Zinc Sulfate [Zinc Sulfate*] 220 mg PO DAILY 05/25/19 RX: allopurinoL [Zyloprim*] 300 mg PO DAILY 05/25/19 RX: carvediloL [Coreg*] 25 mg PO TID 05/25/19 RX: Furosemide [Lasix*] 40 mg PO BIDL #60 tab 05/29/19 - Past Medical/Surgical History Diabetic: No -: Obstructive sleep apnea -: HTN -: CHF -: Gout -: Venous insufficiency -: Tobacco abuse -: Morbid obesity -: Skin graft -: x2 -: vein removal on R leg (2014) Psychosocial/ Personal History: The patient is . - Family History Mother -: Diabetes Notes: Alzheimer's Father -: Stroke - Social History Smoking Status: Current every day smoker Alcohol use: No CD- Drugs: Yes Caffeine use: Yes Review of Systems General: Other (Fatigue), As per HPI Eyes: As per HPI ENT: As per HPI Respiratory: Cough, Dry, Shortness of Breath, SOB with Excertion Cardiovascular: Chest Pain, Orthopnea, Paroxysmal Noc. Dyspnea, Edema Gastrointestinal: As per HPI Musculoskeletal: As per HPI Integumentary: Lesions Neurological: As per HPI Physical Examination - Physical Exam General: Alert, In no apparent distress, Obese HEENT: Atraumatic, PERRLA, Mucous membr. moist/pink, EOMI, Sclerae nonicteric Neck: Supple, 2+ carotid pulse no bruit, No LAD, Without JVD or thyroid abnormality, JVD distended Respiratory: Diminished, Crackles/rales, Expiratory wheezes, Inspiratory wheezes Cardiovascular: Regular rate/rhythm, Normal S1 S2 Gastrointestinal: Normal bowel sounds, No tenderness Musculoskeletal: No tenderness Integumentary: Skin lesion, Venous stasis ulcer (wrapped) Neurological: Normal gait, Normal speech, Normal strength at 5/5 x4 extr, Normal tone, Normal affect Lymphatics: No axilla or inguinal lymphadenopathy - Studies Laboratory Data (last 24 hrs) 08/10/19 14:10: PT 13.3 H, INR 1.13 08/10/19 14:10: WBC 4.6, Hgb 11.4 L, Hct 36.2, Plt Count 187 08/10/19 14:10: Sodium 143, Potassium 3.7, BUN 18, Creatinine 1.07, Glucose 97 Imagings Data: COMPARISON: May 2019 FINDINGS: Mild bilateral pulmonary opacities. The heart is markedly enlarged IMPRESSION: Mild CHF Assessment and Plan - Plan Ms. Patterson is a 64-year-old female who presented to the ER with shortness of breath. #Acute diastolic heart failure-elevated BNP with pulmonary congestion on chest x -ray. - IV Lasix. Monitor I&O, low-salt diet, fluid restriction and 1.5 L. - recent echocardiogram with preserved EF. -will transition to p.o. Lasix appropriately. # COPD exacerbation-patient continues to smoke. -low-dose steroids, DuoNeb therapy and supplemental oxygen. -tobacco use cessation strongly advised. #Paroxysmal atrial fibrillation-in NSR -on Xarelto. Continue medications once uploaded to SEP. #Chronic venous stasis ulcer-follows up with wound care. No evidence of acute infection. #Elevated troponin-likely type 2 FL in the setting of diastolic heart failure. Patient however reports chest pressure. -trend troponin. EKG with no acute ischemic changes. -consult project coach. -On plavix at home, will resume. #BEATRICE- CPAP DVT ppx- resume Xarelto Patient is full code Discharge Plan: Home - Advance Directives Does patient have a Living Will: No Does patient have a Durable POA for Healthcare: No - Code Status/Comfort Care Code Status Assessed: Yes Code Status: Full Code
[2019-08-10] MEDS ORDERED: ENOXAPARIN 40 MG/0.4 ML SQ SCH (18:00)
[2019-08-10] MEDS: FUROSEMIDE 40 MG/4 ML VIAL IV SCH (18:50)
[2019-08-10] MEDS: predniSONE 20 MG TAB PO SCH (21:00)
[2019-08-10] MEDS: IPRATROPIUM BROM 0.5MG/2.5ML NEB SCH (21:45)
[2019-08-10] MEDS: ALBUTEROL 2.5 MG/3 ML NEB SOL NEB SCH (21:45)
[2019-08-10] MEDS ORDERED: IPRATROPIUM BROM 0.5MG/2.5ML ONE (21:48)
[2019-08-10] MEDS ORDERED: ALBUTEROL 2.5 MG/3 ML NEB SOL ONE (21:48)
[2019-08-10] MEDS ORDERED: ENOXAPARIN 40 MG/0.4 ML SQ ONE (21:51)
[2019-08-10] MEDS ORDERED: predniSONE 20 MG TAB ONE (22:29)
[2019-08-10] MEDS: carvediloL 25 MG TAB PO SCH (23:27)
[2019-08-10] MEDS ORDERED: CYCLOBENZAPRINE 10 MG TAB PO PRN (23:27)
[2019-08-10] MEDS ORDERED: NITROGLYCERIN 0.4 MG/TAB SL PRN (23:27)
[2019-08-10] MEDS: cloNIDine HCL 0.1 MG TAB PO SCH (23:27)
[2019-08-10] MEDS ORDERED: carvediloL 6.25 MG TAB ONE (23:57)
[2019-08-11] MEDS ORDERED: ALBUTEROL 2.5 MG/3 ML NEB SOL ONE ×2 (00:56→07:43)
[2019-08-11] MEDS ORDERED: IPRATROPIUM BROM 0.5MG/2.5ML ONE ×4 (00:56→11:59)
[2019-08-11] MEDS: IPRATROPIUM BROM 0.5MG/2.5ML NEB SCH ×6 (01:00→20:55)
[2019-08-11] MEDS: ALBUTEROL 2.5 MG/3 ML NEB SOL NEB SCH ×4 (01:00→20:55)
[2019-08-11 06:05] LABS: Absolute Lymphocytes (CBC) 0.4 K/uL (0.7-4.9); Basophils % 0.2 % (0-1.3); Hematocrit 34.2 % (36.0-45.0); Lymphocytes % 10.5 % (15.3-44.8); MPV 10.1 fL (7.6-11.3); RBC Red Blood Cell Count 3.76 M/uL (3.86-4.86)
[2019-08-11 06:07] LABS: Magnesium 1.8 mg/dL (1.8-2.4); Potassium 3.9 mmol/L (3.5-5.1)
[2019-08-11] MEDS ORDERED: POTASSIUM CL SA 10 MEQ TAB PO ONE ×2 (06:57→08:19)
[2019-08-11] MEDS ORDERED: MAGNESIUM SULFATE 1 gm IVPB 1 GM/100 ML BAG IV ONE ×2 (06:57→08:19)
[2019-08-11] MEDS ORDERED: CLOPIDOGREL 75 MG TABLET ONE (07:37)
[2019-08-11] MEDS ORDERED: cloNIDine HCL 0.1 MG TAB ONE (07:37)
[2019-08-11] MEDS ORDERED: PREGABALIN 50 MG CAP ONE (07:38)
[2019-08-11] MEDS ORDERED: ASPIRIN EC 81 MG TAB PO ONE (07:38)
[2019-08-11] MEDS ORDERED: FUROSEMIDE 40 MG TABLET ONE (07:38)
[2019-08-11] MEDS ORDERED: ENOXAPARIN 40 MG/0.4 ML SQ ONE (07:39)
[2019-08-11] MEDS ORDERED: predniSONE 20 MG TAB ONE (07:39)
[2019-08-11] MEDS: ASPIRIN EC 81 MG TAB PO SCH (08:00)
[2019-08-11] MEDS: predniSONE 20 MG TAB PO SCH ×2 (08:01→20:20)
[2019-08-11] MEDS: cloNIDine HCL 0.1 MG TAB PO SCH ×3 (08:01→20:20)
[2019-08-11] MEDS: FUROSEMIDE 40 MG/4 ML VIAL IV SCH ×2 (08:02→18:07)
[2019-08-11] MEDS: PREGABALIN 50 MG CAP PO SCH (08:02)
[2019-08-11] MEDS: CLOPIDOGREL 75 MG TABLET PO SCH (08:03)
[2019-08-11] MEDS: LOSARTAN POTASSIUM 50 MG TABLET PO SCH (09:00)
[2019-08-11] MEDS: RIVAROXABAN 15 MG TABLET PO SCH (09:00)
[2019-08-11] MEDS: AMIODARONE HCL 200 MG TAB PO SCH (09:00)
[2019-08-11] MEDS: carvediloL 25 MG TAB PO SCH ×3 (09:00→20:20)
[2019-08-11] MEDS: allopurinoL 300 MG TAB PO SCH (09:00)
[2019-08-11] MEDS ORDERED: ACETAMINOPHEN 325 MG TABLET ONE (09:58)
[2019-08-11] MEDS ORDERED: FUROSEMIDE 40 MG/4 ML VIAL ONE (09:58)
[2019-08-11] MEDS: ACETAMINOPHEN 325 MG TABLET PO PRN (09:58)
--- NOTE | 2019-08-11 13:50 | EKG ---
Test Date: 2019-08-10 Test Time: 14:37:46 Conveyor Attendant: MAXIMO MEASUREMENT RESULTS: Intervals: Rate: 62 HI: 234 QRSD: 106 QT: 490 QTc: 497 [place]: P: 79 HI: 234 QRS: 7 T: 115 INTERPRETIVE STATEMENTS: Sinus rhythm with 1st degree AV block ST & T wave abnormality, consider lateral ischemia Prolonged QT Abnormal ECG Compared to ECG 05/29/2019 11:35:07 ST (T wave) deviation now present Possible ischemia now present Prolonged QT interval now present Sinus bradycardia no longer present T-wave abnormality no longer present Electronically Signed On 08-11-19 13:46:09 [employer]EDATORY GAME [employer]TER by Hernesto Varghese
--- NOTE | 2019-08-11 15:26 | P.PN ---
Subjective Date of Service: 08/11/19 Chief Complaint: Shortness of breath Subjective: Improving Review of Systems 10-point ROS is otherwise unremarkable Respiratory: Cough, Shortness of Breath, SOB with Excertion Physical Examination - Vital Signs Temperature: 97.3 F Blood Pressure: 114/60 Pulse: 62 Respirations: 16 Pulse Ox (%): 97 - Physical Exam General: Alert, In no apparent distress, Obese HEENT: Atraumatic, PERRLA, EOMI Neck: Supple, JVD not distended Respiratory: Diminished, Inspiratory wheezes Cardiovascular: Regular rate/rhythm, Normal S1 S2, Edema Gastrointestinal: Normal bowel sounds, No tenderness Musculoskeletal: No tenderness, Swelling Integumentary: Venous stasis ulcer (bilateral LE, dressing intact) Neurological: Normal speech, Normal tone, Normal affect Lymphatics: No axilla or inguinal lymphadenopathy - Studies Laboratory Data (last 24 hrs) 08/10/19 14:10: WBC 4.6, Hgb 11.4 L, Hct 36.2, Plt Count 187 Medications List Reviewed: Yes Assessment And Plan - Plan Ms. Patterson is a 64-year-old female who presented to the ER with shortness of breath. #Acute diastolic heart failure-elevated BNP with pulmonary congestion on chest x -ray. -Continue IV Lasix. Monitor I&O, low-salt diet, fluid restriction and 1.5 L. -recent echocardiogram with preserved EF. -will transition to p.o. Lasix appropriately. # COPD exacerbation-patient continues to smoke. -low-dose steroids, DuoNeb therapy and supplemental oxygen. -tobacco use cessation strongly advised. #Paroxysmal atrial fibrillation-in NSR -on Xarelto. #Chronic venous stasis ulcer-follows up with wound care. No evidence of acute infection. #Elevated troponin-likely type 2 VA in the setting of diastolic heart failure. Patient however reports chest pressure. -trend troponin. EKG with no acute ischemic changes. -consult furnace caretaker. -On plavix at home, will resume. #BEATRICE- CPAP DVT ppx- resume Xarelto Patient is full code Discharge Plan: Home - Code Status/Comfort Care Code Status Assessed: Yes Code Status: Full Code
--- NOTE | 2019-08-11 21:29 | CON ---
Date of Consultation: 08/11/2019 Reason For Consultation: Congestive heart failure. History Of Present Illness: Ms. Patterson is a 64-year-old woman, has had many and many admissions i n the hospital for similar situation. The last admission was in May 2019 when she had an echoca rdiogram showing a normal ejection fraction with decreased left ventricular compliance. She has many problems that include hypertension, chronic diastolic congestive heart failure, chronic renal insuff iciency. She has atrial fibrillation. She has neuropathy, obesity, COPD. She has issues with wound care and chronic pain. Apparently, at one point, she was taking amitriptyline, hydrocodone, and Desiree rontin for her pain, but she quit taking those because she could not afford her pain management physi sim. She comes in with congestive heart failure as usual. Denied chest pain, nausea, vomiting, cesar phoresis. Has had PND, orthopnea, pedal edema. Denied palpitation or syncope. Past Medical History: As stated earlier. Review of Systems: Negative. Social History: Negative. Family History: Noncontributory. Medications: Listed by Dr. Lagunas. Physical Examination: General: Ms. Patterson is anxious, obese. She was in sinus rhythm. Vital Signs: Stable. She was afebrile. HEENT: Negative. Neck: Supple without any bruit, lymphadenopathy, JVD, or thyromegaly. Chest: Revealed rales at both bases. Cardiac: Revealed regular rhythm and rate with an S4 gallop. No murmurs or rubs. Abdomen: Obese, but benign. Extremities: Revealed chronic venous insufficiency. Diagnostic Data: Noted. Impression And Plan: Acute on chronic diastolic congestive heart failure. I have a suggestion regar ding her diuresis. She is on 80 mg of Lasix daily and I think we can go up to twice a day. I think she needs to be on Aldactone 25 mg daily, beta-blockade, diuretics, salt restrictions, and weight con trol is really the mainstay of therapy for her diastolic congestive heart failure. I do not see the need of repeating another echocardiogram. She does not need any further cardiac workup. I would con tinue her Xarelto for her atrial fibrillation. Her other problems including COPD, venous insufficien cy, gout, hypertension, and renal insufficiency seem to be stable at this point. I will discuss the case further with Dr. Lagunas, but as far as I am concerned, she can go home with the above-mentioned recommendations once her diuresis is adequate. JAEL/MODL Voice ID: [id number] Report ID: [id number]
[2019-08-11] MEDS ORDERED: Magnesium Sulfate 2gm IVPB 2 G/50 ML BAG IV ONE (22:11)
[2019-08-12] MEDS: ALBUTEROL 2.5 MG/3 ML NEB SOL NEB SCH ×4 (00:30→20:40)
[2019-08-12] MEDS: IPRATROPIUM BROM 0.5MG/2.5ML NEB SCH ×6 (00:30→20:40)
[2019-08-12 05:32] LABS: Magnesium 2.4 mg/dL (1.8-2.4)
[2019-08-12] MEDS: carvediloL 25 MG TAB PO SCH ×3 (08:27→21:14)
[2019-08-12] MEDS: AMIODARONE HCL 200 MG TAB PO SCH (08:27)
[2019-08-12] MEDS: FUROSEMIDE 40 MG/4 ML VIAL IV SCH (08:28)
[2019-08-12] MEDS: cloNIDine HCL 0.1 MG TAB PO SCH ×3 (08:28→21:14)
[2019-08-12] MEDS: RIVAROXABAN 15 MG TABLET PO SCH (08:29)
[2019-08-12] MEDS: ASPIRIN EC 81 MG TAB PO SCH (08:29)
[2019-08-12] MEDS: CLOPIDOGREL 75 MG TABLET PO SCH (08:29)
[2019-08-12] MEDS: allopurinoL 300 MG TAB PO SCH (08:29)
[2019-08-12] MEDS: predniSONE 20 MG TAB PO SCH ×2 (08:29→21:15)
[2019-08-12] MEDS: LOSARTAN POTASSIUM 50 MG TABLET PO SCH (08:30)
[2019-08-12] MEDS: PREGABALIN 50 MG CAP PO SCH (08:30)
[2019-08-12] MEDS: ACETAMINOPHEN 325 MG TABLET PO PRN (10:41)
[2019-08-12] MEDS: ARFORMOTEROL TARTRATE 15 MCG/2 ML VIAL.NEB NEB SCH ×2 (12:18→20:40)
--- NOTE | 2019-08-12 12:23 | P.CNS ---
Date of Consult: 08/12/19 Reason for Consult: Shortness of breath COPD possible sleep apnea Chief Complaint: Shortness of breath History of Present Illness: Patient is 64 years of age multiple medical problems who is been complaining of progressive dyspnea for the past month with orthopnea lower extremity edema she has cut chronic venous stasis ulcers a smokes heavily no prior diagnosis of COPD uses inhalers on a p.r.n. basis she does have Symbicort also on nebulized albuterol which is does not follow up with a communications attendant as diastolic dysfunction has 2 or 3 CPAP machines non compliant. Denies cough speak Allergies insect venom Adverse Reaction (Verified 05/25/19 00:45) Anaphylaxis Home Medications: Amiodarone HCl [Cordarone*] 200 mg PO DAILY 05/25/19 Aspirin [Aspir-Low] 81 mg PO DAILY 05/25/19 Budesonide/Formoterol Fumarate [Symbicort 160-4.5 Mcg Inhaler] 1 puff IH PRN PRN 05/25/19 Calcium Carbonate/Vitamin D3 [Calcium 600-Vit D3 500 Softgel] 1 each PO DAILY Cholecalciferol (Vitamin D3) [Vitamin D3] 1,000 unit PO BID 05/25/19 Ciprofloxacin HCl [Ciprofloxacin 0.3% Ophth Bianca] 2 drops OPTH PRN PRN 05/25/19 Clonidine HCl [Catapres] 0.1 mg PO TID 05/25/19 Clopidogrel Bisulfate [Plavix*] 75 mg PO DAILY 05/25/19 Collagenase [Santyl Ointment*] 1 marietta TP PRN PRN 05/25/19 Cyclobenzaprine [Flexeril*] 10 mg PO Q8H PRN 05/25/19 Hydralazine HCl 50 mg PO TID 05/25/19 Hydroxyzine HCl [Atarax] 25 mg PO Q8H 05/25/19 Levalbuterol [Xopenex*] 0.63 mg IH Q6H 05/25/19 Losartan Potassium [Cozaar*] 100 mg PO DAILY 05/25/19 Magnesium Oxide [Magnesium] 250 mg PO DAILY 05/25/19 Nitroglycerin [Nitrostat*] 0.4 mg SL BID 05/25/19 Potassium Chloride [Klor-Con 10] 10 meq PO BID 05/25/19 Pregabalin [Lyrica*] 50 mg PO DAILY 05/25/19 Rivaroxaban [Xarelto*] 15 mg PO DAILY 05/25/19 Triamcinolone 0.1% Oint [Kenalog 0.1% Ointment*] 1 appl TOP BID PRN 05/25/19 Zinc Sulfate [Zinc Sulfate*] 220 mg PO DAILY 05/25/19 allopurinoL [Zyloprim*] 300 mg PO DAILY 05/25/19 carvediloL [Coreg*] 25 mg PO TID 05/25/19 Ferrous Fumarate/Vit Bcomp&C [Super B-Complex Caplet] 1 each PO DAILY 08/10/19 Fluocinonide [Lidex] 1 appl TD PRN 08/10/19 Furosemide [Lasix*] 80 mg PO DAILY 08/10/19 Lidocaine 4% Patch [Lidoderm 5% Patch] 1 patch TD PRN 08/10/19 - Past Medical/Surgical History Diabetic: No -: Obstructive sleep apnea -: HTN -: CHF -: Gout -: Venous insufficiency -: Tobacco abuse -: Morbid obesity -: Skin graft -: x2 -: vein removal on R leg (2014) Psychosocial/ Personal History: The patient is . - Family History Mother Medical History: Diabetes Notes: Alzheimer's Father Medical History: Heart disease, Stroke - Social History Smoking Status: Current every day smoker Alcohol use: No CD- Drugs: No Caffeine use: No Place of Residence: Home Review of Systems 10-point ROS is otherwise unremarkable Respiratory: Shortness of Breath Physical Examination Temp Pulse Resp BP Pulse Ox 97.2 F 61 17 127/68 100 08/12/19 08:00 08/12/19 08:28 08/12/19 08:00 08/12/19 08:28 08/12/19 08:00 General: Alert, In no apparent distress, Oriented x3 Neck: Supple Respiratory: Expiratory wheezes Cardiovascular: Normal S1 S2, Edema Gastrointestinal: Normal bowel sounds, Soft and benign, Non-distended Musculoskeletal: Swelling Laboratory Data (last 24 hrs) 08/12/19 04:36: Sodium 141, Potassium 4.0, BUN 28 H, Creatinine 1.52 H, Glucose 135 H, Magnesium 2.4 D - Problems (1) COPD exacerbation Current Visit: Yes Status: Acute Plan: Patient is 64 years of age heavy smoker admitted with worsening dyspnea continues to smoke history of diastolic dysfunction labs reviewed acute renal dysfunction I suspect is from use of diuretics chest x-ray shows cardiomegaly mild interstitial changes elevated BNP. Patient may need outpatient evaluation for COPD at this time advise her to use Symbicort 162 puffs twice a day on a scheduled basis and albuterol or Xopenex on a p.r.n. 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
--- NOTE | 2019-08-12 15:31 | P.PN ---
Subjective Date of Service: 08/12/19 Chief Complaint: Shortness of breath Subjective: New changes (pt worried about her multiple symptoms -unsure whye exertional dyspnea - states unable to ambulate due to SOB - still left leg chronic venous stasis -admit to tobacco use and non adherent to her home cpap due to nocturia) Review of Systems 10-point ROS is otherwise unremarkable Physical Examination - Vital Signs Temperature: 97.1 F Blood Pressure: 148/76 Pulse: 55 Respirations: 17 Pulse Ox (%): 97 - Physical Exam General: In no apparent distress, Oriented x3 (on RA), Obese (morbid) HEENT: Atraumatic, Normocephalic Neck: JVD not distended, No Thyromegaly Respiratory: Normal air movement, Diminished Cardiovascular: Regular rate/rhythm, Normal S1 S2, Edema (left unnaboot , trace RLE) Gastrointestinal: Normal bowel sounds, Soft and benign, Non-distended Neurological: Normal gait - Studies Laboratory Data (last 24 hrs) 08/12/19 04:36: Sodium 141, Potassium 4.0, BUN 28 H, Creatinine 1.52 H, Glucose 135 H, Magnesium 2.4 D Medications List Reviewed: Yes Assessment & Plan - Problems (Diagnosis) (1) COPD exacerbation Current Visit: Yes Status: Acute (2) Acute kidney failure Current Visit: No Status: Acute (3) Ulcer of left lower extremity Onset Date: 02/04/17 Current Visit: No Status: Acute (4) Chronic venous hypertension (idiopathic) with ulcer of left lower extremity Current Visit: No Status: Chronic (5) Morbid obesity with BMI of 40.0-44.9, adult Onset Date: 02/04/17 Current Visit: No Status: Chronic Plan to discharge in: 24 Hours Physician Review: Patient Assessed, Agree with Above Assessment and Plan Physician Review Additional Text: # Exertional dyspnea - may be due to pulmonary HTN with COPD although no formal disgnosis of COPD in the past -advise to avoid tobacco use - need to adhere with noturnal cpap use discussed -will consult pulmonary - may need start nebs - may need home 02 # OBSA- restart home cpap # HTN - controlled # ARF - may be due to overdiuresis - will reduce laix from 40 IV bid to po bid - hold losartan for now # Tobacco use- nicotine patch now # Chronic LE ulcers -due to venous stenosis , on unna boot and follows at wound care -no evidenc eof cellulitis now - may be due to right heart failure from Uncontrolled OBSA discussed - may need outpt Echo Dispo- possible home in am
[2019-08-12] MEDS: FUROSEMIDE 40 MG TABLET PO SCH (17:03)
[2019-08-12] MEDS: NIFEDIPINE XL 60 MG TABLET PO SCH (17:11)
[2019-08-13] MEDS: ALBUTEROL 2.5 MG/3 ML NEB SOL NEB SCH ×5 (01:30→20:40)
[2019-08-13] MEDS: IPRATROPIUM BROM 0.5MG/2.5ML NEB SCH ×6 (01:30→20:40)
[2019-08-13] MEDS ORDERED: IPRATROPIUM BROM 0.5MG/2.5ML ONE (04:46)
[2019-08-13 06:21] LABS: Absolute Lymphocytes (CBC) 0.7 K/uL (0.7-4.9); Basophils % 0.1 % (0-1.3); Hematocrit 35.9 % (36.0-45.0); Lymphocytes % 11.5 % (15.3-44.8); MPV 10.1 fL (7.6-11.3); RBC Red Blood Cell Count 3.93 M/uL (3.86-4.86)
[2019-08-13 06:45] LABS: Albumin 3.2 g/dL (3.4-5.0); Bilirubin Total 0.2 mg/dL (0.2-1.0); Potassium 4.1 mmol/L (3.5-5.1); Protein, Total 7.5 g/dL (6.4-8.2)
[2019-08-13] MEDS: ARFORMOTEROL TARTRATE 15 MCG/2 ML VIAL.NEB NEB SCH ×2 (07:35→20:40)
[2019-08-13] MEDS: ASPIRIN EC 81 MG TAB PO SCH (08:33)
[2019-08-13] MEDS: cloNIDine HCL 0.1 MG TAB PO SCH ×3 (08:34→20:12)
[2019-08-13] MEDS: PREGABALIN 50 MG CAP PO SCH (08:34)
[2019-08-13] MEDS: RIVAROXABAN 15 MG TABLET PO SCH (08:35)
[2019-08-13] MEDS: CLOPIDOGREL 75 MG TABLET PO SCH (08:35)
[2019-08-13] MEDS: predniSONE 20 MG TAB PO SCH ×2 (08:35→20:12)
[2019-08-13] MEDS: NIFEDIPINE XL 60 MG TABLET PO SCH (08:35)
[2019-08-13] MEDS: AMIODARONE HCL 200 MG TAB PO SCH (08:35)
[2019-08-13] MEDS: carvediloL 25 MG TAB PO SCH ×3 (08:36→20:12)
[2019-08-13] MEDS: allopurinoL 300 MG TAB PO SCH (08:36)
[2019-08-13] MEDS: FUROSEMIDE 40 MG TABLET PO SCH ×2 (08:36→16:15)
--- NOTE | 2019-08-13 13:43 | P.PN ---
Subjective Date of Service: 08/13/19 Chief Complaint: Shortness of breath Subjective: No new changes (still some chest congestion) Review of Systems 10-point ROS is otherwise unremarkable Physical Examination - Vital Signs Temperature: 97.6 F Blood Pressure: 113/59 Pulse: 61 Respirations: 16 Pulse Ox (%): 93 - Physical Exam General: Alert, In no apparent distress, Oriented x3, Obese HEENT: Atraumatic, Normocephalic Neck: 2+ carotid pulse no bruit, JVD not distended Respiratory: Clear to auscultation bilaterally, Normal air movement Cardiovascular: No edema, Normal pulses, Regular rate/rhythm, Normal S1 S2 Gastrointestinal: Normal bowel sounds, Soft and benign, Non-distended Musculoskeletal: No clubbing, No swelling Integumentary: No rashes, No breakdown Neurological: Normal gait, Normal strength at 5/5 x4 extr External genitalia: No edema, No lesions - Studies Laboratory Last Values WBC 5.9 K/uL (4.3-10.9) D 08/13/19 05:51 RBC 3.93 M/uL (3.86-4.86) 08/13/19 05:51 Hgb 11.0 g/dL (12.0-15.0) L 08/13/19 05:51 Hct 35.9 % (36.0-45.0) L 08/13/19 05:51 MCV 91.3 fL (80-100) 08/13/19 05:51 MCH 28.1 pg (27.0-35.0) 08/13/19 05:51 MCHC 30.7 g/dL (32.0-36.0) L 08/13/19 05:51 RDW 16.0 % (12.1-15.2) H 08/13/19 05:51 Plt Count 213 K/uL (152-406) 08/13/19 05:51 MPV 10.1 fL (7.6-11.3) 08/13/19 05:51 Neutrophils % 80.7 % (41.7-73.7) H 08/13/19 05:51 Lymphocytes % 11.5 % (15.3-44.8) L 08/13/19 05:51 Monocytes % 7.6 % (3.3-12.3) 08/13/19 05:51 Eosinophils % 0.1 % (0-4.4) 08/13/19 05:51 Basophils % 0.1 % (0-1.3) 08/13/19 05:51 Absolute Neutrophils 4.8 K/uL (1.8-8.0) 08/13/19 05:51 Segmented Neutrophils 66 % (40-80) 08/10/19 14:10 Band Neutrophils 1 % (0-1) 08/10/19 14:10 Absolute Lymphocytes 0.7 K/uL (0.7-4.9) 08/13/19 05:51 Lymphocytes 20 % (15-42) 08/10/19 14:10 Monocytes 10 % (0-10) 08/10/19 14:10 Absolute Monocytes 0.4 K/uL (0.1-1.3) 08/13/19 05:51 Eosinophils 0 % (0-3) 08/10/19 14:10 Absolute Eosinophils 0.0 K/uL (0-0.5) 08/13/19 05:51 Basophils 1 % (0-1) 08/10/19 14:10 Absolute Basophils 0.0 K/uL (0-0.5) 08/13/19 05:51 Atypical Lymphocytes 1 08/10/19 14:10 Morphology Comment Not seen (NOT SEEN) 08/10/19 14:10 PT 13.3 SECONDS (9.5-12.5) H 08/10/19 14:10 INR 1.13 08/10/19 14:10 Sodium 141 mmol/L (136-145) 08/13/19 05:51 Potassium 4.1 mmol/L (3.5-5.1) 08/13/19 05:51 Chloride 100 mmol/L (98-107) 08/13/19 05:51 Carbon Dioxide 39 mmol/L (21-32) H 08/13/19 05:51 BUN 33 mg/dL (7-18) H 08/13/19 05:51 Creatinine 1.23 mg/dL (0.55-1.3) 08/13/19 05:51 Estimated GFR 54 mL/min (=/>90) L 08/13/19 05:51 Glucose 126 mg/dL (74-106) H 08/13/19 05:51 Calcium 8.7 mg/dL (8.5-10.1) 08/13/19 05:51 Magnesium 2.4 mg/dL (1.8-2.4) D 08/12/19 04:36 Total Bilirubin 0.2 mg/dL (0.2-1.0) 08/13/19 05:51 AST 6 U/L (15-37) L 08/13/19 05:51 ALT 14 U/L (12-78) 08/13/19 05:51 Alkaline Phosphatase 83 U/L (45-117) 08/13/19 05:51 Rapid Troponin I 0.12 ng/mL (0.0-0.045) H 08/10/19 14:10 Troponin I 0.10 ng/mL (0.0-0.045) H 08/11/19 00:32 NT-Pro-B Natriuret Pep 1148 pg/mL (<125) H 08/13/19 05:51 Serum Total Protein 7.5 g/dL (6.4-8.2) 08/13/19 05:51 Albumin 3.2 g/dL (3.4-5.0) L 08/13/19 05:51 Globulin 4.3 g/dL (2.3-3.5) H 08/13/19 05:51 Albumin/Globulin Ratio 0.7 (1.1-1.8) L 08/13/19 05:51 Medications List Reviewed: Yes Assessment & Plan - Problems (Diagnosis) (1) COPD exacerbation Current Visit: Yes Status: Acute (2) Acute kidney failure Current Visit: No Status: Acute (3) Ulcer of left lower extremity Onset Date: 02/04/17 Current Visit: No Status: Acute (4) Chronic venous hypertension (idiopathic) with ulcer of left lower extremity Current Visit: No Status: Chronic (5) Morbid obesity with BMI of 40.0-44.9, adult Onset Date: 02/04/17 Current Visit: No Status: Chronic Physician Review: Patient Assessed, Agree with Above Assessment and Plan Physician Review Additional Text: # Exertional dyspnea - improving - Noted with decreased 02 sat with ambulation - will arrange for home 02 -since possible pulmonary HTN with COPD although no formal diagnosis of COPD in the past, will obtain Echo to assess Right heart -advise to avoid tobacco use -Need to adhere with noturnal cpap use discussed # OBSA- restart home cpap # HTN - controlled # ARF -improving with decreased lasix dosage -c/w po lasix 40 mg po bid -continue to hold losartan for now # Tobacco use- nicotine patch now # Chronic LE ulcers -due to venous stenosis , on unna boot and follows at wound care -no evidence of cellulitis now - may be due to right heart failure from Uncontrolled OBSA discussed - will need Echo prior to discharge Dispo -possible home in am after Echo done
[2019-08-13] MEDS: GUAIFENESIN 600 MG SA TAB PO SCH ×2 (16:15→21:00)
[2019-08-14] MEDS: IPRATROPIUM BROM 0.5MG/2.5ML NEB SCH ×6 (00:20→19:48)
[2019-08-14] MEDS: ALBUTEROL 2.5 MG/3 ML NEB SOL NEB SCH ×2 (01:57→08:00)
[2019-08-14 05:26] LABS: Absolute Lymphocytes (CBC) 0.7 K/uL (0.7-4.9); Basophils % 0.1 % (0-1.3); Hematocrit 36.5 % (36.0-45.0); Lymphocytes % 10.6 % (15.3-44.8); MPV 10.1 fL (7.6-11.3); RBC Red Blood Cell Count 4.01 M/uL (3.86-4.86)
[2019-08-14 05:50] LABS: Albumin 3.1 g/dL (3.4-5.0); Bilirubin Total 0.3 mg/dL (0.2-1.0); Potassium 4.2 mmol/L (3.5-5.1); Protein, Total 7.3 g/dL (6.4-8.2)
[2019-08-14] MEDS: cloNIDine HCL 0.1 MG TAB PO SCH ×3 (08:22→21:33)
[2019-08-14] MEDS: ASPIRIN EC 81 MG TAB PO SCH (08:22)
[2019-08-14] MEDS: NIFEDIPINE XL 60 MG TABLET PO SCH (08:22)
[2019-08-14] MEDS: allopurinoL 300 MG TAB PO SCH (08:22)
[2019-08-14] MEDS: predniSONE 20 MG TAB PO SCH ×2 (08:22→21:33)
[2019-08-14] MEDS: RIVAROXABAN 15 MG TABLET PO SCH (08:22)
[2019-08-14] MEDS: CLOPIDOGREL 75 MG TABLET PO SCH (08:22)
[2019-08-14] MEDS: AMIODARONE HCL 200 MG TAB PO SCH (08:23)
[2019-08-14] MEDS: GUAIFENESIN 600 MG SA TAB PO SCH ×2 (08:23→21:33)
[2019-08-14] MEDS: FUROSEMIDE 40 MG TABLET PO SCH ×2 (08:23→16:31)
[2019-08-14] MEDS: PREGABALIN 50 MG CAP PO SCH (08:23)
[2019-08-14] MEDS: carvediloL 25 MG TAB PO SCH ×3 (08:24→21:33)
[2019-08-14] MEDS ORDERED: LEVALBUTEROL 0.63 MG/3 ML NEB NEB PRN (08:44)
--- NOTE | 2019-08-14 11:25 | P.DS ---
Admission Date: 08/12/19 Discharge Date: 08/14/19 Primary Care Provider: Dr. Mckenna; Cardiology-Dr. Rivera Disposition: ROUTINE DISCHARGE Discharge Condition: GOOD Reason for Admission: Shortness of breath Consultations: Cardiology-Dr. Varghese Pulmonary-Dr. Singh Procedures: CXR: COMPARISON: May 2019 FINDINGS: Mild bilateral pulmonary opacities. The heart is markedly enlarged IMPRESSION: Mild CHF ECHO: Obtained. Medical Problem List: Shortness of breath secondary to COPD exacerbation and acute on chronic diastolic CHF Acute on chronic renal disease stage III History of atrial fibrillation on chronic anti coagulation therapy Chronic lower extremity ulcer with history of venous stasis Hypertension Obstructive sleep apnea Tobacco abuse Brief History of Present Illness: 64-year-old female presented to the emergency room with shortness of breath. Patient with history of chronic diastolic CHF, hypertension, chronic renal disease and atrial fibrillation. Patient also has a history of COPD. Patient was found to have CHF and COPD exacerbation. Patient admitted for further treatment. Hospital Course: Patient presented with shortness of breast secondary to COPD exacerbation and acute on chronic diastolic CHF exacerbation. Patient was treated during the course of her stay. Patient seen and evaluated by pulmonology and Cardiology. Medications have been adjusted. At discharge he is without significant shortness of breath. Patient has significantly improved. At discharge for her COPD she will no longer take Symbicort. At discharge she will continue with Brovana 1 unit dose twice daily and Xopenex 1 unit dose 3 times a day as needed for shortness of breath. Patient will continue with prednisone 10 mg daily for the next 5 days. Recommend follow up with pulmonology in 1-2 weeks to follow up this hospitalization. COPD now stable. At discharge will check to see if patient will require home oxygen at discharge. Maintain sats above 93%. For her CHF patient has done well. Medications have been adjusted. At discharge she will continue with a 1500 cc per day fluid restriction and low- salt diet. She is to monitor her weight daily. If her weight increases by more than 5 lb she is to contact her PCP or cardiology for further recommendation. At discharge Lasix has been increased. At discharge she will continue with Lasix 80 mg 1 pill twice daily. Patient will also continue with potassium supplementation. Further adjustment in medication can be done by her PCP or cardiology. Patient with history of CAD and atrial fibrillation on chronic anti coagulation therapy. This has remained stable. At discharge she will continue with her current medications of amiodarone 200 mg daily, aspirin 81 mg daily, Plavix 75 mg daily, and Xarelto 15 mg daily. Recommend follow up with cardiology in 1-2 weeks to follow up this hospitalization. Patient with history of hypertension. Medications have been adjusted during the course of her stay. Hydralazine and losartan have been discontinued. Procardia was added. At discharge she will continue with carvedilol 25 mg 1 pill 3 times a day, clonidine 0.1 mg 3 times a day, and Procardia XL 60 mg daily. She is to monitor her blood pressures daily. Recommend to maintain blood pressures less 140/80. Further adjustment can be done by her PCP or cardiology. Patient with history of obstructive sleep apnea. Patient has not been compliant with her CPAP machine. Recommendation is to continue with CPAP every night. Further adjustment can be done by pulmonology. Recommend follow up with pulmonology to further monitor and address. Patient with acute on chronic renal disease stage III. This has remained stable. Recommend to recheck BMP in 1-2 weeks to monitor progress. Recommend future medications to be renally dosed. Recommend no further use of nonsteroidal anti-inflammatories. Patient with chronic pain. At discharge she may continue with Lyrica 50 mg daily. Patient also uses Flexeril. Further adjustment in medication can be done by her PCP. Patient with chronic ulcers to the left lower extremity. Patient will continue with wrappings daily. Case discussed with patient support specialist/surgery. Patient will continue with current wound care. Vitamin-A has been added daily. Vital Signs/Physical Exam: Temp Pulse Resp BP Pulse Ox 97.9 F 62 16 131/68 90 L 08/14/19 08:00 08/14/19 08:24 08/14/19 08:00 08/14/19 08:24 08/14/19 08:00 General: Alert, In no apparent distress, Oriented x3, Cooperative HEENT: Atraumatic Neck: Supple Respiratory: Clear to auscultation bilaterally, Normal air movement Cardiovascular: Normal pulses, Regular rate/rhythm Gastrointestinal: Normal bowel sounds, Soft and benign, Non-distended, No tenderness, No masses, No rebound, No guarding Musculoskeletal: No tenderness, No warmth Integumentary: No erythema, No warmth, No cyanosis, Other (Wrappings to the left lower extremity noted) Neurological: Normal speech, Normal strength at 5/5 x4 extr, Normal tone, Normal affect Laboratory Data at Discharge: WBC 6.5 K/uL (4.3-10.9) 08/14/19 04:45 Hgb 11.3 g/dL (12.0-15.0) L 08/14/19 04:45 Hct 36.5 % (36.0-45.0) 08/14/19 04:45 Plt Count 195 K/uL (152-406) 08/14/19 04:45 PT 13.3 SECONDS (9.5-12.5) H 08/10/19 14:10 INR 1.13 08/10/19 14:10 Sodium 138 mmol/L (136-145) 08/14/19 04:45 Potassium 4.2 mmol/L (3.5-5.1) 08/14/19 04:45 BUN 33 mg/dL (7-18) H 08/14/19 04:45 Creatinine 1.10 mg/dL (0.55-1.3) 08/14/19 04:45 Glucose 118 mg/dL (74-106) H 08/14/19 04:45 Magnesium 2.4 mg/dL (1.8-2.4) D 08/12/19 04:36 Total Bilirubin 0.3 mg/dL (0.2-1.0) 08/14/19 04:45 AST 10 U/L (15-37) L 08/14/19 04:45 ALT 18 U/L (12-78) 08/14/19 04:45 Alkaline Phosphatase 79 U/L (45-117) 08/14/19 04:45 Troponin I 0.10 ng/mL (0.0-0.045) H 08/11/19 00:32 Home Medications: Amiodarone HCl [Cordarone*] 200 mg PO DAILY 05/25/19 Aspirin [Aspir-Low] 81 mg PO DAILY 05/25/19 Calcium Carbonate/Vitamin D3 [Calcium 600-Vit D3 500 Softgel] 1 each PO DAILY Cholecalciferol (Vitamin D3) [Vitamin D3] 1,000 unit PO BID 05/25/19 Clonidine HCl [Catapres] 0.1 mg PO TID 05/25/19 Clopidogrel Bisulfate [Plavix*] 75 mg PO DAILY 05/25/19 Collagenase [Santyl Ointment*] 1 [place] TP PRN PRN 05/25/19 Cyclobenzaprine [Flexeril*] 10 mg PO Q8H PRN 05/25/19 Levalbuterol [Xopenex*] 0.63 mg IH Q6H 05/25/19 Magnesium Oxide [Magnesium] 250 mg PO DAILY 05/25/19 Nitroglycerin [Nitrostat*] 0.4 mg SL BID 05/25/19 Potassium Chloride [Klor-Con 10] 10 meq PO BID 05/25/19 Pregabalin [Lyrica*] 50 mg PO DAILY 05/25/19 Rivaroxaban [Xarelto*] 15 mg PO DAILY 05/25/19 Triamcinolone 0.1% Oint [Kenalog 0.1% Ointment*] 1 appl TOP BID PRN 05/25/19 Zinc Sulfate [Zinc Sulfate*] 220 mg PO DAILY 05/25/19 allopurinoL [Zyloprim*] 300 mg PO DAILY 05/25/19 carvediloL [Coreg*] 25 mg PO TID 05/25/19 Ferrous Fumarate/Vit Bcomp&C [Super B-Complex Caplet] 1 each PO DAILY 08/10/19 Fluocinonide [Lidex] 1 appl TD PRN 08/10/19 Lidocaine 4% Patch [Lidoderm 5% Patch*] 1 patch TD PRN 08/10/19 Arformoterol Tartrate [Brovana] 15 mcg NEB BIDRESP #60 vial.neb 08/14/19 Furosemide [Lasix*] 80 mg PO BID #120 tab 08/14/19 Levalbuterol [Xopenex*] 0.63 mg NEB TID PRN #90 vial 08/14/19 Nifedipine Xl [Procardia XL*] 60 mg PO DAILY #30 tab 08/14/19 Vitamin A 8,000 unit PO DAILY #30 capsule 08/14/19 predniSONE [Deltasone*] 10 mg PO DAILY #5 tab 08/14/19 New Medications: Arformoterol Tartrate [Brovana] 15 mcg NEB BIDRESP #60 vial.neb Furosemide [Lasix*] 80 mg PO BID #120 tab Levalbuterol [Xopenex*] 0.63 mg NEB TID PRN #90 vial PRN Reason: Shortness Of Breath Nifedipine Xl [Procardia XL*] 60 mg PO DAILY #30 tab predniSONE [Deltasone*] 10 mg PO DAILY #5 tab Vitamin A 8,000 unit PO DAILY #30 capsule Patient Discharge Instructions: 1. Recommend follow up with her PCP in 1 week to follow up this hospitalization. 2. Patient presented with shortness of breast secondary to COPD exacerbation and acute on chronic diastolic CHF exacerbation. Patient was treated during the course of her stay. Patient seen and evaluated by pulmonology and Cardiology. Medications have been adjusted. At discharge he is without significant shortness of breath. Patient has significantly improved. At discharge for her COPD she will no longer take Symbicort. At discharge she will continue with Brovana 1 unit dose twice daily and Xopenex 1 unit dose 3 times a day as needed for shortness of breath. Patient will continue with prednisone 10 mg daily for the next 5 days. Recommend follow up with pulmonology in 1-2 weeks to follow up this hospitalization. COPD now stable. At discharge will check to see if patient will require home oxygen at discharge. Maintain sats above 93%. 3. For her CHF patient has done well. Medications have been adjusted. At discharge she will continue with a 1500 cc per day fluid restriction and low-salt diet. She is to monitor her weight daily. If her weight increases by more than 5 lb she is to contact her PCP or cardiology for further recommendation. At discharge Lasix has been increased. At discharge she will continue with Lasix 80 mg 1 pill twice daily. Patient will also continue with potassium supplementation. Further adjustment in medication can be done by her PCP or cardiology. 4. Patient with history of CAD and atrial fibrillation on chronic anti coagulation therapy. This has remained stable. At discharge she will continue with her current medications of amiodarone 200 mg daily, aspirin 81 mg daily, Plavix 75 mg daily, and Xarelto 15 mg daily. Recommend follow up with cardiology in 1-2 weeks to follow up this hospitalization. 5. Patient with history of hypertension. Medications have been adjusted during the course of her stay. Hydralazine and losartan have been discontinued. Procardia was added. At discharge she will continue with carvedilol 25 mg 1 pill 3 times a day, clonidine 0.1 mg 3 times a day, and Procardia XL 60 mg daily. She is to monitor her blood pressures daily. Recommend to maintain blood pressures less 140/80. Further adjustment can be done by her PCP or cardiology. 6. Patient with history of obstructive sleep apnea. Patient has not been compliant with her CPAP machine. Recommendation is to continue with CPAP every night. Further adjustment can be done by pulmonology. Recommend follow up with pulmonology to further monitor and address. 7. Patient with acute on chronic renal disease stage III. This has remained stable. Recommend to recheck BMP in 1-2 weeks to monitor progress. Recommend future medications to be renally dosed. Recommend no further use of nonsteroidal anti-inflammatories. 8. Patient with chronic pain. At discharge she may continue with Lyrica 50 mg daily. Patient also uses Flexeril. Further adjustment in medication can be done by her PCP. 9. Patient with chronic ulcers to the left lower extremity. Patient will continue with wrappings daily. Case discussed with patient support specialist/surgery. Patient will continue with current wound care. Vitamin-A has been added daily. Diet: AHA Activity: Fall precautions Time spent managing pt's care (in minutes): 55
[2019-08-14] MEDS: ARFORMOTEROL TARTRATE 15 MCG/2 ML VIAL.NEB NEB SCH ×2 (11:42→19:48)
--- NOTE | 2019-08-14 12:41 | ECHO ---
HEIGHT: 5 ft 7 in WEIGHT: 295 lb 8 oz DATE OF STUDY: 08/14/[address]: Brianne Lewis MD 2-DIMENSIONAL: YES M.MODE: YES DOPPLER: YES COLOR FLOW: YES TDS: YES PORTABLE: NO DEFINITY: NO BUBBLE STUDY: NO DIAGNOSIS: CEREBRAL VASCULAR ACCIDENT CARDIAC HISTORY: CATHERIZATION: NO SURGERY: NO PROSTHETIC VALVE: NO PACEMAKER: NO MEASUREMENTS (cm) DIASTOLIC (NORMALS) SYSTOLIC (NORMALS) IVSd 1.5 (0.6-1.2) LA Diam 4.2 (1.9-4.0) LVEF 79% LVIDd 5.4 (3.5-5.7) LVIDs 2.8 (2.0-3.5) %FS 48% LVPWd 1.5 (0.6-1.2) Ao Diam 3.2 (2.0-3.7) 2 DIMENSIONAL ASSESSMENT: RIGHT ATRIUM: NORMAL LEFT ATRIUM: DILATED RIGHT VENTRICLE: NORMAL LEFT VENTRICLE: LEFT VENTRICULAR HYPERTROPHY - CONCENTRIC TRICUSPID VALVE: NORMAL MITRAL VALVE: NORMAL PULMONIC VALVE: NORMAL AORTIC VALVE: NORMAL PERICARDIAL EFFUSION: NONE AORTIC ROOT: NORMAL LEFT VENTRICULAR WALL MOTION: NORMAL. DOPPLER/COLOR FLOW: IMPAIRED LEFT VENTRICULAR RELAXATION. COMMENTS: NORMAL LEFT VENTRICULAR EJECTION FRACTION. DILATED LEFT ATRIUM. LEFT VENTRICULAR HYPERTROPHY, IMPAIRED LEFT VENTRICULAR RELAXATION. TECHNOLOGIST: JOSEPH GROVER
[2019-08-14] MEDS: ACETAMINOPHEN 325 MG TABLET PO PRN (14:49)
[2019-08-15] MEDS: IPRATROPIUM BROM 0.5MG/2.5ML NEB SCH ×5 (00:26→16:00)
[2019-08-15 05:10] VITALS: O2SAT 95
[2019-08-15 05:37] VITALS: BMI 46.0
[2019-08-15] MEDS: ARFORMOTEROL TARTRATE 15 MCG/2 ML VIAL.NEB NEB SCH (08:10)
[2019-08-15] MEDS: NIFEDIPINE XL 60 MG TABLET PO SCH (08:11)
[2019-08-15] MEDS: RIVAROXABAN 15 MG TABLET PO SCH (08:12)
[2019-08-15] MEDS: cloNIDine HCL 0.1 MG TAB PO SCH ×2 (08:12→13:20)
[2019-08-15] MEDS: PREGABALIN 50 MG CAP PO SCH (08:12)
[2019-08-15] MEDS: ASPIRIN EC 81 MG TAB PO SCH (08:12)
[2019-08-15] MEDS: AMIODARONE HCL 200 MG TAB PO SCH (08:12)
[2019-08-15] MEDS: CLOPIDOGREL 75 MG TABLET PO SCH (08:12)
[2019-08-15] MEDS: predniSONE 20 MG TAB PO SCH (08:13)
[2019-08-15] MEDS: FUROSEMIDE 40 MG TABLET PO SCH ×2 (08:13→16:22)
[2019-08-15] MEDS: carvediloL 25 MG TAB PO SCH ×2 (08:13→13:19)
[2019-08-15] MEDS: allopurinoL 300 MG TAB PO SCH (08:21)
[2019-08-15] MEDS: GUAIFENESIN 600 MG SA TAB PO SCH (08:21)
[2019-08-15 08:25] VITALS: TEMP 97.1
--- NOTE | 2019-08-15 08:37 | P.PN ---
Subjective Date of Service: 08/15/19 Primary Care Provider: Dr. Mckenna; Cardiology-Dr. Rivera Chief Complaint: COPD exacerbation Subjective: Improving (Patient is improving no new changes bronchodilator therapies helping) Review of Systems General: Weakness Respiratory: Shortness of Breath Physical Examination - Vital Signs Temperature: 97.1 F Blood Pressure: 114/54 Pulse: 60 Respirations: 16 Pulse Ox (%): 98 - Physical Exam General: Alert, In no apparent distress, Oriented x3 Respiratory: Expiratory wheezes Cardiovascular: No edema, Normal S1 S2 - Studies Medications List Reviewed: Yes Assessment & Plan - Problems (Diagnosis) (1) COPD exacerbation Current Visit: Yes Status: Acute Plan: Patient admitted with COPD exacerbation doing better on bronchodilator therapy can be discharged home on Symbicort which she has at home 2 puffs twice a day and use either Xopenex or Ventolin on a p.r.n. basis patient has been advised to use scheduled doses of Symbicort and also a resume her CPAP no evidence of sepsis patient has diastolic dysfunction she will also benefit from low-dose prednisone follow with me in 2 weeks patient's oxygenation is satisfactory will not qualify for home O2 Physician Review: Patient Assessed, Agree with Above Assessment and Plan
[2019-08-15 12:18] VITALS: BP 106/55
== END 2019-08-15 17:32 | disposition home or self-care (01) | DRG 190 ==
LOC: ER 12:48 → ERHOLD 16:52 → 4TH 08-11 14:07 → OBSVTOIN 08-12 11:09
PROVIDERS: ADMIT Hospitalist; ATTEND Hospitalist
DX: J44.1 Chronic obstructive pulmonary disease with (acute) exacerbation (principal); I50.33 Acute on chronic diastolic (congestive) heart failure; I13.0 Hypertensive heart and chronic kidney disease with heart failure and stage 1 through stage 4 chronic kidney disease, or unspecified chronic kidney disease; N17.9 Acute kidney failure, unspecified; I87.312 Chronic venous hypertension (idiopathic) with ulcer of left lower extremity; L97.909 Non-pressure chronic ulcer of unspecified part of unspecified lower leg with unspecified severity; N18.3 Chronic kidney disease, stage 3 (moderate); I48.91 Unspecified atrial fibrillation; Z79.01 Long term (current) use of anticoagulants; G47.33 Obstructive sleep apnea (adult) (pediatric); F17.210 Nicotine dependence, cigarettes, uncomplicated; I25.10 Atherosclerotic heart disease of native coronary artery without angina pectoris; G89.29 Other chronic pain
CPT/HCPCS: 36415; 71045; 80048; 80053; 83735; 83880; 84484; 85025; 85610; 93005; 93306; 96374; 99285; G0378; J1650; J1940; J3475; J7512; J7605

== ENCOUNTER 2022-03-10 15:06 | Inpatient (IN) | payer BC ==
--- OUTSIDE RECORDS SUMMARY | 2022-03-10 15:13 | XMS REPORT | Continuity of Care Document ---
:1955 Author Organization [facility] t Address [address] [place] [address] Care Team Providers Name Role Phone CAPO JHA Primary Care Physician Unavailable Arnulfo Rivera Attending Clinician Unavailable ANABEL MILLIGAN Attending Clinician Unavailable CAPO JHA Attending Clinician Unavailable Capo Jha DO Attending Clinician LAB90 Attending Clinician Unavailable Anabel Milligan MD Attending Clinician Physician, No Primary or Family Admitting Clinician Unavaila ble Payers Payer Name Policy Type Policy Number Effective Date Expiration Date S ource [place] OF [place] [id number] 2020 00:00:00 BCBS [id number] 2021 00:00:00 Problems Condition Condition Condition Status Onset Resolution Last Treating Co mments Source Name Details Category Date Date Treatment Clinician Date Current Current Disease Active Karmen mild mild 12-10 Seybold episode of episode of 00:00: major major 00 depressive depressive disorder disorder without without prior prior episode episode Grief Grief Disease Active Karmen 6-01 Seybold 00:00: 00 Chronic Chronic Disease Active Karmen diastolic diastolic 5-06 Seyb old congestive congestive 00:00: heart heart 00 failure failure Chronic Chronic Disease Active Karmen acquired acquired 5-06 Seybol d lymphedema lymphedema 00:00: 00 Primary Primary Disease Active Karmen hypertensi hypertensi 5-03 Se ybold on on 00:00: 00 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 00:00: atrial atrial 00 fibrillati fibrillati on on Chronic Chronic Disease Active Karmen anticoagul anticoagul 5-03 Se ybold ation ation 00:00: 00 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 5-03 Se ybold emia emia 00:00: 00 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 00:00: 00 Anemia of Anemia of Disease Active James sey chronic chronic 5-03 Seybold disease disease 00:00: 00 Chronic Chronic Disease Active Karmen obstructiv obstructiv 5-03 Se ybold e e 00:00: pulmonary pulmonary 00 disease disease with acute with acute exacerbati exacerbati on on Migraine Migraine Disease Active Jamesse y with aura with aura 5-03 Seyb old and and 00:00: without without 00 status status migrainosu migrainosu s, not s, not intractabl intractabl e e CHF CHF Disease Active Univers (congestiv (congestiv 1-05 it y of e heart e heart 00:00: [place] failure) failure) 00 Medica l Branch Chronic Chronic Disease Active Univers cutaneous cutaneous 1-05 ity of venous venous 00:00: [place] stasis stasis 00 Medical ulcer ulcer Branch Peripheral Peripheral Disease Active U nivers neuropathy neuropathy 1-05 it y of 00:00: [place] 00 Medical Branch Varicose Varicose Disease Active Unive rs veins veins 1-05 ity of 00:00: [place] 00 Medical Branch Morbid Morbid Disease Active 2018-0 Univers obesity obesity 5-24 ity of with body with body [place] mass index mass index 00 Me dical of of Branch 40.0-49.9 40.0-49.9 PVD PVD Disease Active Overview: Univer s (periphera (periphera 5-10 Formattin ity of l vascular l vascular 00:00: g of this [place] disease) disease) 00 note Medica l might be Branch different from the original. Added automatic ally from request for surgery [id number] Positive Positive Disease Active Kelse y TIFFANY TIFFANY 10-06 Seybold (antinucle (antinucle 00:00: ar ar 00 antibody) antibody) Chronic Chronic Disease Active Karmen ulcer of ulcer of 10-06 Seybol d left ankle left ankle 00:00: 00 Necrobiosi Necrobiosi Disease Active M ethodi s s [address] [facility] lipoidica lipoidica 00:00: Hosp esau 00 l Leg wound, Leg wound, Disease Active M ethodi left left 8-16 st 00:00: Hospita 00 l Leg ulcer Leg ulcer [facility] Edema Edema Disease Active 2014-07 Univers 1-18 ity of 00:00: [place] 00 Medical Branch Pain of Pain of Disease Active 2014-07 Univers right right 18 ity of lower lower 00:00: [place] extremity extremity 00 Medi [place] Branch Venous Venous Disease Active 2014-[address] ulcer of ulcer of 07[facility] right leg right leg 00:00: [facility] 00 Center Venous Venous Disease Active 2014-[address] insufficie insufficie 07 Pallavi kes ncy of ncy of 00:00: Medical right leg right leg 00 Cent er EDELMIRA (acute EDELMIRA (acute Disease Active 2014-[address] kidney kidney 07-18 [facility] injury) injury) 00:00: Medical 00 Center Hypokalemi Hypokalemi Disease Active 2014-[address] a a 07[facility]12 [facility] 00:[facility] Medical 00 Center Obesity Obesity Disease Active 2014-07 Overview[facility] 00:[facility]: g of this Medical 00 note Center might be different from the original. Body mass index is 45.33 kg/(m^2). on 5 HTN HTN Disease Active 2014-[address] (hypertens (hypertens 0-31 Pallavi kes ion) ion) 00:00: Medical 00 Center Gout Gout Disease Active 2014-[address] [facility] 00:00: Medical 00 [place] Cellulitis Cellulitis Disease Active 2014-[address] of right of right 0-30 [facility] lower lower 00:00: Medical extremity extremity 00 Cent er Allergies, Adverse Reactions, Alerts Allergy Allergy Status Severity Reaction(s) Onset Inactive Treating Comm ents Source Name Type Date Date Clinician No Known DA Active [facility] 2019-07 [facility] 00:[facility]: [address] No Known DA Active U 2019-07 [facility] Allergie -[facility] 00:[facility]: [address] Bee Propensi Active Anaphylaxis James sey ty to 5-23 Seybold adverse 00:00: reaction 00 s Bee Propensi Active Anaphylaxis Uni vers Sting / ty to 5-23 ity of Venom adverse 00:00: [place] reaction [address] [place] [address] Branch BEE DRUG Active Anaphylaxis Unive rs STING / INGREDI 5-23 ity of VENOM 00:00: [address] Branch Molds & Propensi Active Karmen Smuts ty to 9-10 Seybold adverse 00:00: reaction 00 s NO KNOWN Allergy Active [facility] Family History Family Member Diagnosis Comments Start Date Stop Date Source Natural sister Hypertension [facility] Natural sister Coronary artery Metho [facility] disease Natural brother Diabetes [facility] Natural brother Hypertension [facility] Natural father Diabetes [facility] Natural father Hypertension [facility] Natural father Stroke [facility] mother [facility] mother Hypertension [facility] Social History Social Habit Start Date Stop Date Quantity Comments Source History of Cigarette Smoker Universi ty of tobacco use [facility] Branch History SDOH [facility]ospita l History SDOH [facility] Drinks History SDOH [facility] Exposure to 2022-01-06 2022-01-16 Not sure University of SARS-CoV-2 00:00:00 11:03:00 [facility] (event) Branch Alcohol intake 2017-02-25 2017-02-25 Current drinker of Me thodist 00:00:00 00:00:00 alcohol (finding) Hospita l Cigarettes smoked 2017-02-24 2017-02-[address] current (pack per 00:00:00 00:00:00 Hospita l day) - Reported Cigarette 2017-02-24 2017-02-24 [facility] pack-years 00:00:00 00:00:00 Hospital Alcohol Comment 2017-02-24 2017-02-[address] 00:00:00 00:00:00 Hospital Tobacco Comment 2016-02-24 2016-02-24 T[address] PRINTED, TO [facility]:00 BE GIVEN DOS Medical Cent er Tobacco use and 2015-05-10 2015-05-[address] Pallavi kes exposure 00:00:00 00:00:00 [facility] Sex Ass[birth year] At [birth year] [facility] 00:00:[facility]00 Hospital Smoking Status Start Date Stop Date Source Heavy tobacco smoker 2021-11-11 00:00:00 Karmen [place] Current every day smoker 2017-12-01 00:00:00 [facility] Medications Ordered Filled Start Stop Current Ordering Indication Dosage Frequency Signature Comments Components Source Medication Medication Date Date Medication? Clinician (SIG) Name Name Collagenase Yes Apply 1 James sey 250 UNIT/GM 12-10 applicatio Se ybold apply 08:22: n externally 45 topically Ointment Fluocinonid Yes Apply 1 James sey e 0.05 % 12-10 applicatio Seybo ld apply 08:22: n externally 45 topically Ointment Turmeric Yes Take by Karmen 500 MG oral - mouth Seybold Cap 08:22: 45 SUPER B Yes Take by Karmen COMPLEX/C 6-01 mouth Seybold OR 08:22: 45 Calcium-Mag Yes Take by James gallegos nesium-Christina 6-01 mouth Seybold min D 08:22: daily Take (CALCIUM 45 as 1200+D3 OR) directed. Levalbutero Yes 186 .63mg Q.25D Take 0.63 Karmen l HCl 0.63 6-01 mg by Seybold MG/3ML 08:22: nebulizati inhalation 45 on every 6 Inhalant hours as Solution needed for wheezing 1 vial per nebulizer PRN for wheezing every 6 hours. Indication s: Wheezing Triamcinolo Yes Apply Kelse y ne 6- topically Seybold Acetonide 08:22: 2 times 0.1 % apply 45 daily externally Ointment Trazodone Yes 50mg Take 50 mg Ke lsey HCl 50 MG 6-01 by mouth Seybol d oral Tablet 08:22: nightly 45 Losartan Yes 100mg Take 100 Aimee ey Potassium 6-01 mg by Seybold 100 MG oral 08:22: mouth Tablet 45 daily Vitamin E Yes 45ug Take 45 Kelse y 45 MG (100 6- mcg by Seybold UNIT) oral 08:22: mouth 2 Capsule 45 times daily Multiple Yes Take by Karmen Vitamins-Ca 6- mouth Seybold lcium 08:22: (ONE-A-DAY 45 WOMENS FORMULA OR) Rivaroxaban Yes 15mg Take 15 mg Karmen 15 MG oral 12-10 by mouth Seybo ld Tablet 08:22: daily 45 SALINE NA Yes by nasal Aimee ey 6- route Seybold 08:22: 45 ACETAMINOPH Yes 1{capsu Q.25D Take 1 Karmen EN-CAFF-BUT - le} capsule by Se ybold ALBITAL 08:22: mouth 50-325-40 45 every 6 MG oral hours as Capsule needed for pain Alprazolam Yes [id number] .5mg Q.5D Take 1 Karmen 0.5 MG oral 12-10 tablet Seybol d Tablet 00:00: (0.5 mg 00 total) by mouth as needed in the morning and 1 tablet (0.5 mg total) as needed in the evening for anxiety. Atorvastati Yes [id number] 20mg Take 1 Karmen n Calcium 5-27 tablet (20 Seyb old 20 MG oral 00:00: mg total) Tablet 00 by mouth daily Ferrous Yes [id number] 325mg Take 1 Ke lsey Sulfate 5-27 tablet Seybold (Iron) 325 00:00: (325 mg (65 Fe) MG 00 total) by oral Tablet mouth daily (with breakfast) Mupirocin Yes [id number] Apply 1 Karmen (BACTROBAN) 5-23 applicatio Se ybold 2 % apply 00:00: n externally 00 topically Ointment 2 times daily Acetaminoph Yes [id number] 1{tbl} QD Take 1 Karmen en-Codeine 5-06 tablet by Seyb old #3 300-30 00:00: mouth MG oral 00 daily as Tablet needed for pain Allopurinol Yes [id number] 300mg Take 1 Karmen 300 MG oral 5-06 tablet Seybol d Tablet 00:00: (300 mg 00 total) by mouth daily Amiodarone Yes [id number] 200mg Take 1 Karmen HCl 200 MG 5-06 tablet Seybold oral Tablet 00:00: (200 mg 00 total) by mouth daily Amitriptyli Yes [id number] 25mg Take 1 Karmen ne HCl 25 5-06 tablet (25 Seyb old MG oral 00:00: mg total) Tablet 00 by mouth daily Aspirin EC Yes [id number] 81mg Take 1 Karmen 81 MG oral 5-06 tablet (81 Sey bold Tablet 00:00: mg total) Delayed 00 by mouth Response daily Aspirin-Jer[place] Yes [id number] 81mg Take 81 mg Karmen cium 5-06 by mouth Seybold Carbonate 00:00: daily 81-777 MG 00 oral Tablet Atorvastati Yes [id number] 10mg Take 1 Karmen n Calcium 5-06 tablet (10 Seyb old 10 MG oral 00:00: mg total) Tablet 00 by mouth daily B Complex Yes [id number] 1{tbl} Take 1 Karmen Vitamins 5-06 tablet by Seybol d (Vitamin-B 00:00: mouth Complex) 00 daily oral Tablet Budesonide- Yes [id number] 2{puff} Inhale 2 Karmen Formoterol 5-06 puffs into Sey bold Fumarate 00:00: the lungs 160-4.5 00 in the MCG/ACT morning inhalation and 2 Aerosol puffs in the evening. Carvedilol Yes [id number] 25mg Take 1 Karmen 25 MG oral 5-06 tablet (25 Sey bold Tablet 00:00: mg total) 00 by mouth in the morning and 1 tablet (25 mg total) in the evening. Cholecalcif 2021-0 Yes [id number] 1{tbl} Take 1 Karmen garcia 25 MCG 5-06 tablet by Sey bold (1000 UT) 00:00: mouth oral Tablet 00 daily Clonidine 2021-0 Yes [id number] .1mg Take 1 Ke lsey HCl 0.1 MG 5-06 tablet Seybold oral Tablet 00:00: (0.1 mg 00 total) by mouth daily Clopidogrel 2021-0 Yes [id number] 75mg Take 1 Karmen Bisulfate 5-06 tablet (75 Seyb old 75 MG oral 00:00: mg total) Tablet 00 by mouth daily Folic Acid 2021-0 Yes [id number] 1{capsu Take 1 Karmen 0.8 MG oral 5-06 le} capsule by Se ybold Capsule 00:00: mouth 00 daily Gabapentin 2021-0 Yes [id number] 400mg Take 1 Karmen 400 MG oral 5-06 capsule Seybo ld Capsule 00:00: (400 mg 00 total) by mouth 3 times daily Lidocaine 5 2021-0 Yes [id number] Apply 1 Karmen % apply 5-06 applicatio Seybol d externally 00:00: n Ointment 00 topically daily Lidocaine 2021-0 Yes [id number] Apply Ke lsey HCl 4 % 5-06 daily. Seybold apply 00:00: externally 00 Gel Magnesium 2021-0 Yes [id number] 1{tbl} Take 1 Karmen 250 MG oral 5-06 tablet by Sey bold Tablet 00:00: mouth 00 daily Spironolact 2021-0 Yes [id number] 25mg Take 1 Karmen one 25 MG 5-06 tablet (25 Seyb old oral Tablet 00:00: mg total) 00 by mouth daily Sumatriptan 2021-0 Yes [id number] 100mg Q.5D Take 1 Karmen Succinate 5-06 tablet Seybold 100 MG oral 00:00: (100 mg Tablet 00 total) by mouth as needed in the morning and 1 tablet (100 mg total) as needed in the evening. Tizanidine 2021-0 Yes [id number] 4mg Q.[id number] Take 1 Karmen HCl 4 MG 5-06 [id number] capsule (4 Seybold oral 00:00: 3D mg total) Capsule 00 by mouth 3 times daily as needed for muscle spasms Zinc 2021-0 Yes [id number] 220mg Take 1 Kelse y Sulfate 220 5-06 capsule Seybo ld (50 Zn) MG 00:00: (220 mg oral 00 total) by Capsule mouth daily Allopurinol 0 Yes 300mg Take 300 K elsey 300 MG oral 5-03 mg by Seybold Tab 15:30: mouth 19 Aspirin EC 0 Yes 81mg Take 81 mg K elsey 81 MG oral 5-03 by mouth Seybo ld Tablet 15:30: Delayed 19 Response Carvedilol Yes 25mg Take 25 mg K elsey 25 MG oral 5-03 by mouth Seybo ld Tab 15:30: 19 Clonidine 0 Yes .1mg Take 0.1 Aimee ey HCl 0.1 MG 5-03 mg by Seybold oral Tab 15:30: mouth 19 HydrALAZINE 0 Yes 25mg Take 25 mg Karmen HCl 25 MG 5-03 by mouth Seybol d oral Tab 15:30: 19 Valsartan-H 0 Yes 1{tbl} Take 1 Ke lsey ydrochlorot 5-03 tablet by Sey bold hiazide 15:30: mouth 320-25 MG 19 oral Tab Folic Acid 0 Yes Take by Aimee ey 0.8 MG oral 5-03 mouth Seybold Cap 15:30: 19 Tizanidine 0 Yes 4mg Take 4 mg Ke lsey HCl 4 MG 5-03 by mouth Seybold oral Cap 15:30: 19 B Complex 0 Yes 1{tbl} Take 1 Aimee ey Vitamins 5-03 tablet by Seybol d (VITAMIN-B 15:30: mouth COMPLEX) 19 oral Tab Cholecalcif 0 Yes 1000U Take 1,000 Karmen garcia 25 MCG 5-03 units by Seyb old (1000 UT) 15:30: mouth oral Tablet 19 Vitamins/Mi 0 Yes Take by James sey nerals oral 5-03 mouth Seybold Tab 15:30: 19 Zinc 2021-0 Yes 220mg Take 220 Karmen Sulfate 220 5-03 mg by Seybold (50 Zn) MG 15:30: mouth oral Cap 19 Fluocinonid 2022-0 Yes Apply 1 James sey e 0.05 % 5-03 applicatio Seybo ld apply 15:30: n externally 19 topically Ointment Lidocaine 5 2021- Yes Apply 1 James sey % apply 5-03 applicatio Seybol d externally 15:30: n Ointment 19 topically Lidocaine Yes Apply Karmen HCl 4 % 5-03 topically. Seybol d apply 15:30: externally 19 Gel Budesonide- Yes 2{puff} Inhale 2 Karmen Formoterol 5-03 puffs into Marquise bold Fumarate 15:30: the lungs 160-4.5 19 MCG/ACT inhalation Aerosol SUPER B Yes Take by Karmen COMPLEX/C 5-03 mouth Seybold OR 15:30: 19 Magnesium Yes Take by Chris y 250 MG oral 5-03 mouth Seybold Tab 15:30: 19 HydrOXYzine Yes 25mg Q.[id number] Take 25 mg Karmen HCl 25 MG 5-03 [id number] by mouth Seybold oral Tab 15:30: 3D every 8 19 hours as needed for itching Amiodarone Yes 200mg Take 200 Ke lsey HCl 200 MG 5-03 mg by Seybold oral Tablet 15:30: mouth 19 daily Take one 200 mg tablet orally once daily DiphenhydrA Yes 25mg Q.25D Take 25 mg Karmen MINE 5-03 by mouth Seybold (Benadryl 15:30: every 6 Allergy) 25 19 hours as MG oral needed for capsule itching Take as directed for allergies. Calcium-Mag Yes Take by James gallegos nesium-Christina 5-03 mouth Seybold min D 15:30: daily Take (CALCIUM 19 as 1200+D3 OR) directed. Ciprofloxac Yes .5[in_u Place 0.5 Karmen in HCl 5-03 s] inches Seybold (CILOXIN) 15:30: into both 0.3 % 19 eyes 2 ophthalmic times Ointment daily 2 drops per eye daily Cyclobenzap Yes 10mg Q.[id number] Take 10 mg Karmen rine HCl 10 5-03 [id number] by mouth 3 Seybold MG oral 15:30: 3D times Tablet 19 daily as needed for muscle spasms (Bronchial cough) Cyclobenza harjit 10 mg orally every 8 hours PRN Levalbutero Yes 186 .63mg Q.25D Take 0.63 Karmen l HCl 5-03 mg by Seybold (Xopenex) 15:30: nebulizati 0.63 MG/3ML 19 on every 6 inhalation hours as Inhalant needed for Solution wheezing 1 vial per nebulizer PRN for wheezing every 6 hours. Indication s: Wheezing Triamcinolo Yes Apply Kelse y ne 5-03 topically Seybold Acetonide 15:30: 2 times 0.1 % apply 19 daily externally Ointment Furosemide Yes 40mg Take 40 mg K elsey 40 MG oral 5-03 by mouth Seybo ld Tablet 15:30: daily [address] 0.4 K elsey in 5-03 mg under Seybold (Nitrostat) 15:30: the tongue 0.4 MG 19 every 5 sublingual minutes as SL Tab needed for chest pain 1 to 2 tablets under the tongue at onset of attack. Repeat as needed up to 3 times. If not relieved CALL 911. Pregabalin Yes 50mg Take 50 mg K elsey (Lyrica) 50 5-03 by mouth Seyb old MG oral 15:30: daily Capsule 19 Lidocaine Yes Take by Kelse y HCl 5-03 mouth as Seybold (Lidocaine 15:30: needed for Viscous 19 pain HCl) 2 % mouth/throa t Solution Trazodone Yes 50mg Take 50 mg Ke lsey HCl 50 MG 5-03 by mouth Seybol d oral Tablet 15:30: nightly 19 Losartan Yes 100mg Take 100 Aimee ey Potassium 5-03 mg by Seybold 100 MG oral 15:30: mouth Tablet 19 daily Vitamin E Yes 45ug Take 45 Kelse y 45 MG (100 5-03 mcg by Seybold UNIT) oral 15:30: mouth 2 Capsule 19 times daily Misc Yes 200mg Take 200 Karmen Natural 5-03 mg by Seybold Products 15:30: mouth (ENERGY 19 daily SUPPORT OR) Multiple Yes Take by Karmen Vitamins-Ca 5-03 mouth Seybold lcium 15:30: (ONE-A-DAY 19 WOMENS FORMULA OR) Rivaroxaban Yes 15mg Take 15 mg Karmen (Xarelto) 5-03 by mouth Seybol d 15 MG oral 15:30: daily Tablet 19 SALINE NA Yes by nasal Aimee ey 5-03 route Seybold 15:30: 19 ACETIC ACID Yes Irrigate Ke lsey IR 5-03 with as Seybold 15:30: directed 19 Spironolact Yes 25mg Take 25 mg Karmen one 25 MG 5-03 by mouth Seybol d oral Tablet 15:30: daily 19 predniSONE Yes 10mg Take 10 mg K elsey 5 MG oral 5-03 by mouth Seybol d Tablet 15:30: daily 19 Sertraline Yes 50mg Take 50 mg K elsey HCl 50 MG 5-03 by mouth Seybol d oral Tablet 15:30: daily 19 Cephalexin Yes 500mg Take 500 Ke lsey 500 MG oral 5-03 mg by Seybold Capsule 15:30: mouth 3 19 times daily X 10 days ACETAMINOPH Yes 1{capsu Q.25D Take 1 Karmen EN-CAFF-BUT 5-03 le} capsule by Se ybold ALBITAL 15:30: mouth 50-325-40 19 every 6 MG oral hours as Capsule needed for pain Sumatriptan Yes 100mg Take 100 K elsey Succinate 5-03 mg by Seybold 100 MG oral 15:30: mouth Tablet 19 every 2 hours as needed for migraine (take 2 tabs every 2 hours as needed for 2 doses for Migraine.) Cyanocobala Yes Take by James gallegos min (B-12) 5-03 mouth Seybold 50 MCG oral 15:30: Tablet 18 Phenyleph-D Yes Take by James gallegos iphenhyd-Hy 5-03 mouth As Seyb old drocod 15:30: needed for (HYDRO-DP 17 bronchial OR) cough every 4-6 hours Aspirin-[place] Yes 81mg Take 81 mg Karmen cium 5-03 by mouth Seybold Carbonate 14:38: 81-777 MG 23 oral Tablet predniSONE Yes [id number] 10mg Take 1 Karmen (DELTASONE) 5-03 tablet (10 Se ybold 10 MG oral 00:00: mg total) tablet 00 by mouth daily predniSONE 2021-0 Yes [id number] 10mg Take 1 Karmen (DELTASONE) 5-03 tablet (10 Se ybold 10 MG oral 00:00: mg total) tablet 00 by mouth daily Gabapentin Yes 400mg Take 400 Ke lsey 400 MG oral 4-27 mg by Seybold Capsule 00:00: mouth 3 00 times daily Gabapentin 400 mg orally 3 times daily Doxycycline Yes 100mg Take 100 K elsey Hyclate 100 4-15 mg by Seybold MG oral 00:00: mouth in Capsule 00 the morning and 100 mg in the evening. Take 2 times daily for 2 weeks. TRIMETHOPRI Yes Take by James sey M-SULFAMETH 4-15 mouth 2 Seybo ld OXAZOLE 00:00: times 800-160 MG 00 daily Take oral Tablet 2 times daily x 2 weeks Doxycycline Yes 100mg Take 100 K elsey Hyclate 100 4-15 mg by Seybold MG oral 00:00: mouth in Capsule 00 the morning and 100 mg in the evening. Take 2 times daily for 2 weeks. furosemide Yes 20mg Take 20 mg U nivers 20 mg 4-14 by mouth ity of tablet 16:48: at [place] [address] bedtime. Medical Branch tiZANidine Yes 4mg Take 4 mg Un kayla (ZANAFLEX) 4-14 by mouth ity o f 4 mg tablet 16:48: every 6 Wili as 12 (six) Medical hours as Branch needed. Magnesium Yes Take by Unive rs 250 mg Tab 4-14 mouth. ity of 16:48: [address] Branch OMEGA-3S-DH Yes Take by Uni vers A-EPA-FISH 4-14 mouth. ity of OIL ORAL 16:48: [place] [address] Medical Branch multivitami Yes Take by Uni vers n,tx-minera 4-14 mouth. ity of ls 16:48: [place] (VITAMINS 12 Medical AND Branch MINERALS) tablet collagenase 2021-0 Yes Apply to Un kayla 250 4-14 area(s). ity of unit/gram 16:48: [place] ointment Medical Branch amitriptyli 2021-0 Yes 25mg Take 25 mg Univers ne 25 mg 4-14 by mouth. ity of tablet 16:48: [place] [address] Medical Branch cloNIDine 2021-0 Yes .1mg Take 0.1 Univ ers 0.1 mg 4-14 mg by ity of tablet 16:48: mouth 3 [place] [address] (three) Medical times Branch daily. furosemide 2021-0 Yes 20mg Take 20 mg U nivers 20 mg 4-14 by mouth ity of tablet 16:48: at [place] [address] bedtime. Medical Branch tiZANidine 2021-0 Yes 4mg Take 4 mg Un kayla (ZANAFLEX) 4-14 by mouth ity o f 4 mg tablet 16:48: every 6 Wili as 12 (six) Medical hours as Branch needed. Magnesium 0 Yes Take by Unive rs 250 mg Tab 4-14 mouth. ity of 16:48: [address] OMEGA-3S-DH 0 Yes Take by Uni vers A-EPA-FISH 4-14 mouth. ity of OIL ORAL 16:48: [address] multivitami 0 Yes Take by Uni vers n,tx-minera 4-14 mouth. ity of ls 16:48: [place] ([place] [address] Medical AND Branch MINERALS) tablet collagenase 0 Yes Apply to Un kayla 250 4-14 area(s). ity of unit/gram 16:48: [place] ointment Medical Branch amitriptyli 2021-0 Yes 25mg Take 25 mg Univers ne 25 mg 4-14 by mouth. ity of tablet 16:48: [place] [address] Medical Branch cloNIDine 2021-0 Yes .1mg Take 0.1 Univ ers 0.1 mg 4-14 mg by ity of tablet 16:48: mouth 3 [place] [address] (three) Medical times Branch daily. furosemide 2021-0 Yes 20mg Take 20 mg U nivers 20 mg 4-14 by mouth ity of tablet 16:48: at [place] [address] bedtime. Medical Branch tiZANidine 2021-0 Yes 4mg Take 4 mg Un kayla (ZANAFLEX) 4-14 by mouth ity o f 4 mg tablet 16:48: every 6 Wili as 12 (six) Medical hours as Branch needed. Magnesium 2021-0 Yes Take by Unive rs 250 mg Tab 4-14 mouth. ity of 16:48: [address] OMEGA-3S-DH 0 Yes Take by Uni vers A-EPA-FISH 4-14 mouth. ity of OIL ORAL 16:48: [address] Branch multivitami 0 Yes Take by Uni vers n,tx-minera 4-14 mouth. ity of ls 16:48: [place] (VITAMINS 12 Medical AND Branch MINERALS) tablet collagenase 2021-0 Yes Apply to Un kayla 250 4-14 area(s). ity of unit/gram 16:48: [place] ointment [address] [place] [address] Branch amitriptyli 0 Yes 25mg Take 25 mg Univers ne 25 mg 4-14 by mouth. ity of tablet 16:48: [address] cloNIDine 2021-0 Yes .1mg Take 0.1 Univ ers 0.1 mg 4-14 mg by ity of tablet 16:48: mouth 3 [place] [address] (three) Medical times Branch daily. furosemide 2021-0 Yes 20mg Take 20 mg U nivers 20 mg 4-14 by mouth ity of tablet 16:48: at [place] [address] bedtime. Medical Branch tiZANidine 2021-0 Yes 4mg Take 4 mg Un kayla (ZANAFLEX) 4-14 by mouth ity o f 4 mg tablet 16:48: every 6 [place] as 12 (six) Medical hours as Branch needed. Magnesium 2021-0 Yes Take by Unive rs 250 mg Tab 4-14 mouth. ity of 16:48: [address] OMEGA-3S-DH 0 Yes Take by Uni vers A-EPA-FISH 4-14 mouth. ity of OIL ORAL 16:48: [address] multivitami 0 Yes Take by Uni vers n,tx-minera 4-14 mouth. ity of ls 16:48: [place] (VITAMINS 12 Medical AND Branch MINERALS) tablet collagenase 2021-0 Yes Apply to Un kayla 250 4-14 area(s). ity of unit/gram 16:48: [place] ointment Medical Branch amitriptyli 2021-0 Yes 25mg Take 25 mg Univers ne 25 mg 4-14 by mouth. ity of tablet 16:48: [address] Branch cloNIDine 0 Yes .1mg Take 0.1 Univ ers 0.1 mg 4-14 mg by ity of tablet 16:48: mouth 3 [place] [address] (three) Medical times Branch daily. furosemide 2021-0 Yes 20mg Take 20 mg U nivers 20 mg 4-14 by mouth ity of tablet 16:48: at [place] [address] bedtime. Medical Branch tiZANidine 0 Yes 4mg Take 4 mg Un kayla (ZANAFLEX) 4-14 by mouth ity o f 4 mg tablet 16:48: every 6 [place] as 12 (six) Medical hours as Branch needed. Magnesium Yes Take by Unive rs 250 mg Tab 4-14 mouth. ity of 16:48: [address] OMEGA-3S-DH Yes Take by Uni vers A-EPA-FISH 4-14 mouth. ity of OIL ORAL 16:48: [address] multivitami Yes Take by Uni vers n,tx-minera 4-14 mouth. ity of ls 16:48: [place] ([place] [address] Medical AND Branch MINERALS) tablet collagenase Yes Apply to Un kayla 250 4-14 area(s). ity of unit/gram 16:48: [place] ointment [address] [place] [address] Branch amitriptyli Yes 25mg Take 25 mg Univers ne 25 mg 4-14 by mouth. ity of tablet 16:48: [address] cloNIDine 0 Yes .1mg Take 0.1 Univ ers 0.1 mg 4-14 mg by ity of tablet 16:48: mouth 3 [place] [address] (three) Medical times Branch daily. Bupropion 2021-0 Yes 1{tbl} Take 1 Aimee ey HCL XL 150 4-14 tablet by Seyb old MG OR TB24 00:00: mouth 00 daily Clopidogrel 2021-0 Yes Karmen Bisulfate 4-14 Seybold 75 MG oral 00:00: Tablet 00 Sertraline 2021-0 Yes 1{tbl} Take 1 James sey HCl 100 MG 4-11 tablet by Seyb old oral Tablet 00:00: mouth 00 daily Atorvastati 0 Yes Karmen n Calcium 4-11 Seybold 10 MG oral 00:00: Tablet 00 Topiramate 2021-0 Yes 2{tbl} Take 2 James sey 25 MG oral 4-06 tablets by Sey bold Tablet 00:00: mouth in 00 the morning and 2 tablets in the evening. Topiramate 2021-0 Yes 25mg Take 25 mg K elsey 25 MG oral 4-06 by mouth Seybo ld Tablet 00:00: in the 00 morning and 25 mg in the evening. topiramate 2021-0 Yes Univers 25 mg 4-06 ity of tablet 00:00: [address] topiramate 2021-0 Yes Univers 25 mg 4-06 ity of tablet 00:00: [address] topiramate 2021-0 Yes Univers 25 mg 4-06 ity of tablet 00:00: [address] topiramate 2021-0 Yes Univers 25 mg 4-06 ity of tablet 00:00: [address] topiramate 2021-0 Yes Univers 25 mg 4-06 ity of tablet 00:00: [address] Silvadene 1 2021-0 Yes 1{packa Apply 1 Karmen % apply 4-01 ge} package Seybold externally 00:00: topically Cream 00 2 times daily Silvadene 1 2021-0 Yes 1{packa Apply 1 Karmen % apply 4-01 ge} package Seybold externally 00:00: topically Cream 00 2 times daily LIDOCAINE 2021-0 Yes Univers VISCOUS 2 % 4-01 ity of solution 00:00: [address] LIDOCAINE 2021-0 Yes Univers VISCOUS 2 % 4-01 ity of solution 00:00: [address] LIDOCAINE 2021-0 Yes Univers VISCOUS 2 % 4-01 ity of solution 00:00: [address] LIDOCAINE 2021-0 Yes Univers VISCOUS 2 % 4-01 ity of solution 00:00: [address] LIDOCAINE 2-0 Yes Univers VISCOUS 2 % 4-01 ity of solution 00:00: [address] hydrALAZINE 2-0 Yes 50mg [id number] Take 50 mg Karmen HCl 50 MG 3-14 [id number] by mouth Seybold oral Tablet 00:00: 3D every 8 00 hours as needed hydrALAZINE 2021-0 Yes 50mg Q.[id number] Take 50 mg Karmen HCl 50 MG 3-14 [id number] by mouth Seybold oral Tablet 00:00: 3D every 8 00 hours as needed sumatriptan 2021-0 Yes Univer s 100 mg 3-14 ity of tablet 00:00: [place] [facility] sumatriptan 2021-0 Yes Univer s 100 mg 3-14 ity of tablet 00:00: [place] [facility] sumatriptan 2021-0 Yes Univer s 100 mg 3-14 ity of tablet 00:00: [place] [facility] sumatriptan 2021-0 Yes Univer s 100 mg 3-14 ity of tablet 00:00: [place] [facility] Branch sumatriptan 2021-0 Yes Univer s 100 mg 3-14 ity of tablet 00:00: [address] Branch hydrOXYzine 2021-0 Yes 25mg Q.[id number] Take 25 mg Karmen Pamoate 50 2-25 [id number] by mouth Seybold MG oral 00:00: 3D every 8 Capsule 00 hours as needed hydrOXYzine 2021-0 Yes 25mg Q.[id number] Take 25 mg Karmen Pamoate 50 2-25 [id number] by mouth Seybold MG oral 00:00: 3D every 8 Capsule 00 hours as needed NIFEdipine 2021-0 Yes 1{tbl} Take 1 James sey 60 MG oral 2-08 tablet by Seyb old TABLET SR 00:00: mouth 24 HR 00 daily NIFEdipine 2-0 Yes Univers ER 60 mg 2-08 ity of tablet 00:00: [place] [facility] Branch NIFEdipine 2022-0 Yes Univers ER 60 mg 2-08 ity of tablet 00:00: [place] [facility] Branch NIFEdipine 2022-0 Yes Univers ER 60 mg 2-08 ity of tablet 00:00: [address] NIFEdipine 2022-0 Yes Univers ER 60 mg 2-08 ity of tablet 00:00: [address] NIFEdipine 2-0 Yes Univers ER 60 mg 2-08 ity of tablet 00:00: [address] Branch cloniDINE 2020-0 Yes .2mg Take 0.2 Univ ers (CATAPRES) 1-06 mg by ity of 0.2 mg 15:39: mouth 2 [place] tablet 12 (two) Medical times Branch daily. carvedilol Yes 25mg Take 25 mg U nivers (COREG) 25 1-06 by mouth 2 ity of mg tablet 15:39: (two) [place] 12 times Medical daily with Branch meals. lisinopril Yes 40mg Take 40 mg U nivers (PRINIVIL,Z 1-06 by mouth ity of ESTRIL) 40 15:39: daily. [place] mg tablet Medical Branch Potassium Yes Take by [facility] (POTASSIUM- 1-06 mouth. ity of 99) 99 mg 15:39: [place] Tab [address] [place] [address] Branch FLAXSEED Yes Take by [facility] OIL (OMEGA 1-06 mouth. ity of 3 ORAL) 15:39: [address] Branch MULTIVITS-M Yes Take by Uni vers IN/FA/CA 1-06 mouth. ity of CARB/VIT K 15:39: [place] (ONE-A-DAY 12 [facility] WOMEN'S 50+ Branch ORAL) aspirin 81 Yes 81mg Take 81 mg U nivers mg chewable 06 by mouth ity of tablet 15:39: daily. [address] Branch gabapentin Yes 600mg Take 600 Un kayla 300 mg 1-06 mg by ity of capsule 15:39: mouth 3 [place] 12 (three) Medical times Branch daily. HYDROcodone Yes 1{tbl} Take 1 Un kayla -acetaminop 1-06 tablet by ity of hen 10-325 15:39: mouth 2 [place] mg tablet 12 (two) Medical times Branch daily. valsartan-h Yes 1{tbl} Take 1 Un kayla ydrochlorot 1-06 tablet by ity of hiazide 15:39: mouth [place] 320-25 mg 12 daily. Medical per tablet Branch Oxycodone Yes Take by [facility] 10 mg Tab 1-06 mouth 3 ity of 15:39: (three) [place] 12 times Medical daily. Branch AMOXICILLIN Yes Take by Uni vers /POTASSIUM 1-06 mouth 2 ity of CLAV 15:39: (two) [place] (AUGMENTIN 12 times Medical ORAL) daily. Branch ibuprofen Yes 400mg Take 400 Uni vers 400 mg 1-06 mg by ity of tablet 15:39: mouth. [place] 12 Medical Branch levoFLOXaci Yes Take by Uni vers n 250 mg/10 1-06 mouth. ity of mL solution 15:39: [address] OMEGA-3 Yes Take by Univers FATTY ACIDS -06 mouth. ity of ORAL 15:39: [address] vancomycin Yes 1.25mg Inject Uni vers HCL in -06 1.25 mg ity of water 100 15:39: intravenou [place] mg/mL Soln 12 sly. [facility] Branch Acetaminoph Yes Take by Uni vers en 500 mg 1-06 mouth. ity of Cap 15:39: [address] acetaminoph Yes 1{tbl} Take 1 Un kayla en-codeine 07-17 tablet by ity of 300-30 mg 15:39: mouth. [address] aspirin-jersey Yes 81mg Take 81 mg Univers cium 07-17 by mouth. ity of carbonate 15:39: [place] 81 mg-[address] [place] [address] calcium(777 mg) Tab ceFEPIme Yes 1g Inject 1 g Uni vers (MAXIPIME) 07-17 intravenou ity of 1 gram 15:39: sly. [place] injection [address] [place] [address] cholecalcif Yes 1000U Take 1,000 Univers garcia, -06 Units by ity of vitamin D3, 15:39: mouth. [place] 25 mcg Medical (1,000 Branch unit) tablet clindamycin Yes 300mg Take 300 U nivers 300 mg 1-06 mg by ity of capsule 15:39: mouth. [address] fluocinonid Yes Apply to Un kayla e 0.05 % 07-17 area(s). ity of ointment 15:39: [address] folic acid Yes Take by Univ ers 0.8 mg Cap - mouth. ity of 15:39: [address] levoFLOXaci Yes 500mg Take 500 U nivers n 500 mg 1-06 mg by ity of tablet 15:39: mouth. [address] nitroglycer Yes .4mg Place 0.4 U nivers in 0.4 mg 1-06 mg under ity of sublingual 15:39: the [facility] 12 tongue. [facility] KCL 10 mEq Yes 10meq Take 10 Uni vers tablet 1-06 mEq by ity of 15:39: mouth. [address] VITAMIN B Yes 1{tbl} Take 1 Univ ers COMPLEX 1-06 tablet by ity of ORAL 15:39: mouth. [address] zinc Yes 220mg Take 220 Univers sulfate 220 1-06 mg by ity of (50) mg 15:39: mouth. [place] capsule [address] [place] [address] budesonide- Yes 2{puff} Inhale 2 Univers formoteroL 1-06 Puffs. ity of 80-4.5 15:39: [place] [facility] Branch budesonide- Yes 2{puff} Inhale 2 Univers formoteroL 1-06 Puffs. ity of 160-4.5 15:39: [place] [facility] [address] [place] [address] on inhaler Branch gabapentin Yes 400mg Take 400 Un kayla 400 mg 1-06 mg by ity of capsule 15:39: mouth. [address] hydrALAZINE Yes 25mg Take 25 mg Univers 25 mg 1-06 by mouth. ity of tablet 15:39: [address] hydrOXYzine Yes 25mg Take 25 mg Univers 25 mg 1-06 by mouth. ity of tablet 15:39: [address] lidocaine 5 Yes Apply to Un kayla % ointment 1-06 area(s). ity o f 15:39: [address] triamcinolo Yes Apply to Un kayla ne 1-06 area(s). ity of acetonide 15:39: [place] 0.1 % cream [address] [place] [address] cloniDINE Yes .2mg Take 0.2 Univ ers (CATAPRES) 1-06 mg by ity of 0.2 mg 15:39: mouth 2 [place] tablet (two) Medical times Branch daily. carvedilol Yes 25mg Take 25 mg U nivers (COREG) 25 1-06 by mouth 2 ity of mg tablet 15:39: (two) [place] 12 times Medical daily with Branch meals. lisinopril Yes 40mg Take 40 mg U nivers (PRINIVIL,Z 1-06 by mouth ity of ESTRIL) 40 15:39: daily. [place] mg tablet Medical Branch Potassium Yes Take by Unive rs (POTASSIUM- 1-06 mouth. ity of 99) 99 mg 15:39: [place] Tab [address] [place] [address] Branch FLAXSEED Yes [facility] (OMEGA 1-06 mouth. ity of 3 ORAL) 15:39: [address] Branch MULTIVITS-M Yes Take by Uni vers IN/FA/CA 1-06 mouth. ity of CARB/VIT K 15:39: [place] (ONE-A-DAY [address] [place] [address] WOMEN'S 50+ Branch ORAL) aspirin 81 Yes 81mg Take 81 mg U nivers mg chewable 1-06 by mouth ity of tablet 15:39: daily. [address] Branch gabapentin Yes 600mg Take 600 Un kayla 300 mg 1-06 mg by ity of capsule 15:39: mouth 3 [place] 12 (three) Medical times Branch daily. HYDROcodone Yes 1{tbl} Take 1 Un kayla -acetaminop 1-06 tablet by ity of hen 10-325 15:39: mouth 2 [place] mg tablet 12 (two) Medical times Branch daily. valsartan-h Yes 1{tbl} Take 1 Un kayla ydrochlorot 1-06 tablet by ity of hiazide 15:39: mouth [place] 320-25 mg 12 daily. Medical per tablet Branch Oxycodone Yes Take by Unive rs 10 mg Tab 1-06 mouth 3 ity of 15:39: (three) [place] 12 times Medical daily. Branch AMOXICILLIN Yes Take by Uni vers /POTASSIUM 1-06 mouth 2 ity of CLAV 15:39: (two) [place] (AUGMENTIN 12 times Medical ORAL) daily. Branch ibuprofen Yes 400mg Take 400 Uni vers 400 mg 1-06 mg by ity of tablet 15:39: mouth. [address] levoFLOXaci Yes Take by Uni vers n 250 mg/10 1-06 mouth. ity of mL solution 15:39: [address] OMEGA-3 Yes Take by [facility] FATTY ACIDS -06 mouth. ity of ORAL 15:39: [address] vancomycin Yes 1.25mg Inject Uni vers HCL in -06 1.25 mg ity of water 100 15:39: intravenou [place] mg/mL Soln 12 sly. [facility] Branch Acetaminoph Yes Take by Uni vers en 500 mg 1-06 mouth. ity of Cap 15:39: [address] acetaminoph Yes 1{tbl} Take 1 Un kayla en-codeine 07-17 tablet by ity of 300-30 mg 15:39: mouth. [address] aspirin-jersey Yes 81mg Take 81 mg Univers cium 07-17 by mouth. ity of carbonate 15:39: [place] 81 mg-[address] [place] [address] calcium(777 mg) Tab ceFEPIme Yes 1g Inject 1 g Uni vers (MAXIPIME) 07-17 intravenou ity of 1 gram 15:39: sly. [place] injection [address] [place] [address] Branch cholecalcif Yes 1000U Take 1,000 Univers garcia, 1-06 Units by ity of vitamin D3, 15:39: mouth. [place] 25 mcg Medical (1,000 Branch unit) tablet clindamycin Yes 300mg Take 300 U nivers 300 mg 1-06 mg by ity of capsule 15:39: mouth. [address] fluocinonid Yes Apply to kayla e 0.05 % 07-17 area(s). ity of ointment 15:39: [address] folic acid Yes Take by Univ ers 0.8 mg Cap 1-06 mouth. ity of 15:39: [address] levoFLOXaci Yes 500mg Take 500 U nivers n 500 mg 1-06 mg by ity of tablet 15:39: mouth. [address] nitroglycer Yes .4mg Place 0.4 U nivers in 0.4 mg 1-06 mg under ity of sublingual 15:39: the [place] [address] tongue. [facility] KCL 10 mEq 2021-0 Yes 10meq Take 10 Uni vers tablet 1-06 mEq by ity of 15:39: mouth. [address] VITAMIN B Yes 1{tbl} Take 1 Univ ers COMPLEX 1-06 tablet by ity of ORAL 15:39: mouth. [address] zinc Yes 220mg Take 220 Univers sulfate 220 1-06 mg by ity of (50) mg 15:39: mouth. [place] capsule [address] [place] [address] budesonide- Yes 2{puff} Inhale 2 Univers formoteroL 1-06 Puffs. ity of 80-4.5 15:39: [place] [facility] Medical on inhaler Branch budesonide- Yes 2{puff} Inhale 2 Univers formoteroL 1-06 Puffs. ity of 160-4.5 15:39: [place] [facility] [address] [place] [address] on inhaler Branch gabapentin Yes 400mg Take 400 Un kayla 400 mg 1-06 mg by ity of capsule 15:39: mouth. [address] hydrALAZINE Yes 25mg Take 25 mg Univers 25 mg 1-06 by mouth. ity of tablet 15:39: [address] hydrOXYzine Yes 25mg Take 25 mg Univers 25 mg 1-06 by mouth. ity of tablet 15:39: [address] lidocaine 5 Yes Apply to Un kayla % ointment 06 area(s). ity o f 15:39: [address] triamcinolo Yes Apply to Un kayla ne 106 area(s). ity of acetonide 15:39: [place] 0.1 % cream [address] [place] [address] cloniDINE Yes .2mg Take 0.2 Univ ers (CATAPRES) 1-06 mg by ity of 0.2 mg 15:39: mouth 2 [place] tablet (two) Medical times [place] daily. carvedilol Yes 25mg Take 25 mg U nivers (COREG) 25 1-06 by mouth 2 ity of mg tablet 15:39: (two) [address] daily with Branch meals. lisinopril Yes 40mg Take 40 mg U nivers (PRINIVIL,Z 1-06 by mouth ity of ESTRIL) 40 15:39: daily. [place] mg tablet Medical Branch Potassium Yes Take by Unive rs (POTASSIUM- 1-06 mouth. ity of 99) 99 mg 15:39: [place] Tab [address] [place] [address] Branch FLAXSEED Yes Take by Univer s OIL (OMEGA 1-06 mouth. ity of 3 ORAL) 15:39: [address] MULTIVITS-M Yes Take by Uni vers IN/FA/CA 1-06 mouth. ity of CARB/VIT K 15:39: [place] (ONE-A-DAY 12 [facility] WOMEN'S 50+ Branch ORAL) aspirin 81 Yes 81mg Take 81 mg U nivers mg chewable -06 by mouth ity of tablet 15:39: daily. [address] gabapentin Yes 600mg Take 600 Un kayla 300 mg 1-06 mg by ity of capsule 15:39: mouth 3 [place] [address] (three) Medical times Branch daily. HYDROcodone Yes 1{tbl} Take 1 Un kayla -acetaminop 1-06 tablet by ity of hen 10-325 15:39: mouth 2 [place] mg tablet 12 (two) Medical times Branch daily. valsartan-h Yes 1{tbl} Take 1 Un kayla ydrochlorot 1-06 tablet by ity of hiazide 15:39: mouth [place] 320-25 mg 12 daily. Medical per tablet Branch Oxycodone Yes Take by Unive rs 10 mg Tab 1- mouth 3 ity of 15:39: (three) [place] 12 times Medical daily. Branch AMOXICILLIN Yes Take by Uni vers /POTASSIUM 1-06 mouth 2 ity of CLAV 15:39: (two) [place] (AUGMENTIN 12 times Medical ORAL) daily. Branch ibuprofen Yes 400mg Take 400 Uni vers 400 mg 1-06 mg by ity of tablet 15:39: mouth. [address] levoFLOXaci Yes Take by Uni vers n 250 mg/10 1-06 mouth. ity of mL solution 15:39: [address] OMEGA-3 Yes Take by Univers FATTY ACIDS 1-06 mouth. ity of ORAL 15:39: [address] vancomycin Yes 1.25mg Inject Uni vers HCL in -06 1.25 mg ity of water 100 15:39: intravenou [place] mg/mL Soln 12 sly. [facility] Branch Acetaminoph Yes Take by Uni vers en 500 mg 1-06 mouth. ity of Cap 15:39: [address] acetaminoph Yes 1{tbl} Take 1 Un kayla en-codeine 07-17 tablet by ity of 300-30 mg 15:39: mouth. [place] tablet [address] [place] [address] Branch aspirin-jersey Yes 81mg Take 81 mg Univers cium 06 by mouth. ity of carbonate 15:39: [place] 81 mg-300 Medical mg Branch calcium(777 mg) Tab ceFEPIme Yes 1g Inject 1 g Uni vers (MAXIPIME) 07-17 intravenou ity of 1 gram 15:39: sly. [place] injection [address] [place] [address] Branch cholecalcif Yes 1000U Take 1,000 Univers garcia, -06 Units by ity of vitamin D3, 15:39: mouth. [place] 25 mcg 12 Medical (1,000 Branch unit) tablet clindamycin Yes 300mg Take 300 U nivers 300 mg 1-06 mg by ity of capsule 15:39: mouth. [address] fluocinonid Yes Apply to Un kayla e 0.05 % 06 area(s). ity of ointment 15:39: [address] folic acid Yes Take by [facility] ers 0.8 mg Cap -06 mouth. ity of 15:39: [address] levoFLOXaci Yes 500mg Take 500 U nivers n 500 mg 1-06 mg by ity of tablet 15:39: mouth. [address] nitroglycer Yes .4mg Place 0.4 U nivers in 0.4 mg 1-06 mg under ity of sublingual 15:39: the [place] [address] tongue. [facility] KCL 10 mEq Yes 10meq Take 10 Uni vers tablet 1-06 mEq by ity of 15:39: mouth. [address] VITAMIN B Yes 1{tbl} Take 1 Univ ers COMPLEX 1-06 tablet by ity of ORAL 15:39: mouth. [address] zinc Yes 220mg Take 220 Univers sulfate 220 1-06 mg by ity of (50) mg 15:39: mouth. [place] capsule [address] [place] [address] budesonide- Yes 2{puff} Inhale 2 Univers formoteroL 1-06 Puffs. ity of 80-4.5 15:39: [place] [facility] Medical on inhaler Branch budesonide- Yes 2{puff} Inhale 2 Univers formoteroL 1-06 Puffs. ity of 160-4.5 15:39: [place] [facility] [address] [place] [address] on inhaler Branch gabapentin Yes 400mg Take 400 Un kayla 400 mg 1-06 mg by ity of capsule 15:39: mouth. [address] hydrALAZINE Yes 25mg Take 25 mg Univers 25 mg 1-06 by mouth. ity of tablet 15:39: [address] hydrOXYzine Yes 25mg Take 25 mg Univers 25 mg 1-06 by mouth. ity of tablet 15:39: [address] lidocaine 5 Yes Apply to Un kayla % ointment 06 area(s). ity o f 15:39: [address] triamcinolo Yes Apply to Un kayla ne 06 area(s). ity of acetonide 15:39: [place] 0.1 % cream [address] [place] [address] cloniDINE Yes .2mg Take 0.2 Univ ers (CATAPRES) 1-06 mg by ity of 0.2 mg 15:39: mouth 2 [place] tablet 12 (two) Medical times [place] daily. carvedilol Yes 25mg Take 25 mg U nivers (COREG) 25 1-06 by mouth 2 ity of mg tablet 15:39: (two) [place] [address] times [facility] daily with Branch meals. lisinopril Yes 40mg Take 40 mg U nivers (PRINIVIL,Z 1-06 by mouth ity of ESTRIL) 40 15:39: daily. [place] mg tablet [address] [place] [address] Potassium Yes [facility] (POT[facility]SIUM- 1-06 mouth. ity of 99) 99 mg 15:39: [place] Tab [address] [place] [address] Branch FLAXSEED Yes Take by Univer s OIL (OMEGA 1- mouth. ity of 3 ORAL) 15:39: [address] MULTIVITS-M Yes Take by Uni vers IN/FA/CA 1- mouth. ity of CARB/VIT K 15:39: [place] (ONE-A-DAY [address] [place] [address] WOMEN'S 50+ Branch ORAL) aspirin 81 Yes 81mg Take 81 mg U nivers mg chewable 07-17 by mouth ity of tablet 15:39: daily. [address] gabapentin Yes 600mg Take 600 Un kayla 300 mg 1-06 mg by ity of capsule 15:39: mouth 3 [place] [address] (three) Medical times Branch daily. HYDROcodone Yes 1{tbl} Take 1 Un kayla -acetaminop 07-17 tablet by ity of hen 10-325 15:39: mouth 2 [place] mg tablet 12 (two) Medical times Branch daily. valsartan-h Yes 1{tbl} Take 1 Un kayla ydrochlorot 07-17 tablet by ity of hiazide 15:39: mouth [place] 320-25 mg 12 daily. Medical per tablet Branch Oxycodone Yes Take by Unive rs 10 mg Tab - mouth 3 ity of 15:39: (three) [place] 12 times Medical daily. Branch AMOXICILLIN Yes Take by Uni vers /POTASSIUM 07-17 mouth 2 ity of CLAV 15:39: (two) [place] (AUGMENTIN 12 times Medical ORAL) daily. Branch ibuprofen Yes 400mg Take 400 Uni vers 400 mg 1-06 mg by ity of tablet 15:39: mouth. [address] levoFLOXaci Yes Take by Uni vers n 250 mg/10 07-17 mouth. ity of mL solution 15:39: [address] OMEGA-3 Yes Take by Univers FATTY ACIDS - mouth. ity of ORAL 15:39: [address] vancomycin Yes 1.25mg Inject Uni vers HCL in 07-17 1.25 mg ity of water 100 15:39: intravenou [place] mg/mL Soln 12 sly. [facility] Branch Acetaminoph Yes Take by Uni vers en 500 mg 1-06 mouth. ity of Cap 15:39: [address] acetaminoph Yes 1{tbl} Take 1 Un kayla en-codeine 1-06 tablet by ity of 300-30 mg 15:39: mouth. [place] tablet [address] [place] [address] aspirin-jersey Yes 81mg Take 81 mg Univers cium 1-06 by mouth. ity of carbonate 15:39: [place] 81 mg-300 Medical mg Branch calcium(777 mg) Tab ceFEPIme Yes 1g Inject 1 g Uni vers (MAXIPIME) 1-06 intravenou ity of 1 gram 15:39: sly. [place] injection [address] [place] [address] cholecalcif Yes 1000U Take 1,000 Univers garcia, 1-06 Units by ity of vitamin D3, 15:39: mouth. [place] 25 mcg Medical (1,000 Branch unit) tablet clindamycin Yes 300mg Take 300 U nivers 300 mg 1-06 mg by ity of capsule 15:39: mouth. [address] fluocinonid Yes Apply to Un kayla e 0.05 % 1-06 area(s). ity of ointment 15:39: [address] folic acid Yes Take by Univ ers 0.8 mg Cap 1-06 mouth. ity of 15:39: [address] levoFLOXaci Yes 500mg Take 500 U nivers n 500 mg 1-06 mg by ity of tablet 15:39: mouth. [address] nitroglycer Yes .4mg Place 0.4 U nivers in 0.4 mg 1-06 mg under ity of sublingual 15:39: the [place] [address] tongue. [facility] KCL 10 mEq Yes 10meq Take 10 Uni vers tablet 1-06 mEq by ity of 15:39: mouth. [address] VITAMIN B Yes 1{tbl} Take 1 Univ ers COMPLEX 1-06 tablet by ity of ORAL 15:39: mouth. [address] zinc Yes 220mg Take 220 Univers sulfate 220 1-06 mg by ity of (50) mg 15:39: mouth. [place] capsule [address] [place] [address] budesonide- Yes 2{puff} Inhale 2 Univers formoteroL 1-06 Puffs. ity of 80-4.5 15:39: [place] [facility] on inhaler Branch budesonide- Yes 2{puff} Inhale 2 Univers formoteroL 1-06 Puffs. ity of 160-4.5 15:39[facility] gabapentin Yes 400mg Take 400 Un kayla 400 mg 1-06 mg by ity of capsule 15:39: mouth. [address] hydrALAZINE Yes 25mg Take 25 mg Univers 25 mg 1-06 by mouth. ity of tablet 15:39: [address] hydrOXYzine Yes 25mg Take 25 mg Univers 25 mg 1-06 by mouth. ity of tablet 15:39: [address] lidocaine 5 Yes Apply to Un kayla % ointment 07-17 area(s). ity o f 15:39: [address] triamcinolo Yes Apply to Un kayla ne 07-17 area(s). ity of acetonide 15:39: [place] 0.1 % cream [address] [place] [address] cloniDINE Yes .2mg Take 0.2 Univ ers (CATAPRES) 1-06 mg by ity of 0.2 mg 15:39: mouth 2 [place] tablet (two) Medical times [place] daily. carvedilol Yes 25mg Take 25 mg U nivers (COREG) 25 1-06 by mouth 2 ity of mg tablet 15:39: (two) [address] daily with Branch meals. lisinopril Yes 40mg Take 40 mg U nivers (PRINIVIL,Z 07-17 by mouth ity of ESTRIL) 40 15:39: daily. [place] mg tablet [address] [place] [address] Potassium Yes Take by [facility] rs (POTASSIUM- - mouth. ity of 99) 99 mg 15:39: [place] Tab [address] [place] [address] FLAXSEED Yes Take by Univer s OIL (OMEGA 1-06 mouth. ity of 3 ORAL) 15:39: [address] Branch MULTIVITS-M Yes Take by Uni vers IN/FA/CA 1-06 mouth. ity of CARB/VIT K 15:39: [place] (ONE-A-DAY 12 Medical WOMEN'S 50+ Branch ORAL) aspirin 81 Yes 81mg Take 81 mg U nivers mg chewable 1-06 by mouth ity of tablet 15:39: daily. [address] gabapentin Yes 600mg Take 600 Un kayla 300 mg 1-06 mg by ity of capsule 15:39: mouth 3 [place] 12 (three) Medical times Branch daily. HYDROcodone Yes 1{tbl} Take 1 Un kay[place] -acetaminop 1-06 tablet by ity of hen 10-325 15:39: mouth 2 [place] mg tablet 12 (two) Medical times Branch daily. valsartan-h Yes 1{tbl} Take 1 Un kayla ydrochlorot 1-06 tablet by ity of hiazide 15:39: mouth [place] 320-25 mg 12 daily. Medical per tablet Branch Oxycodone Yes Take by Unive rs 10 mg Tab 1- mouth 3 ity of 15:39: (three) [place] 12 times Medical daily. Branch AMOXICILLIN Yes Take by Uni vers /POTASSIUM 1-06 mouth 2 ity of CLAV 15:39: (two) [place] (AUGMENTIN 12 times Medical ORAL) daily. Branch ibuprofen Yes 400mg Take 400 Uni vers 400 mg 1-06 mg by ity of tablet 15:39: mouth. [address] levoFLOXaci Yes Take by Uni vers n 250 mg/10 1-06 mouth. ity of mL solution 15:39: [address] OMEGA-3 Yes Take by Univers FATTY ACIDS -06 mouth. ity of ORAL 15:39: [address] vancomycin Yes 1.25mg Inject Uni vers HCL in - 1.25 mg ity of water 100 15:39: intravenou [place] mg/mL Soln 12 sly. Medical Branch Acetaminoph Yes Take by Uni vers en 500 mg 1-06 mouth. ity of Cap 15:39: [address] acetaminoph Yes 1{tbl} Take 1 Un kayla en-codeine 1-06 tablet by ity of 300-30 mg 15:39: mouth. [place] tablet Medical Branch aspirin-jersey Yes 81mg Take 81 mg Univers cium 1-06 by mouth. ity of carbonate 15:39: [place] 81 mg-300 Medical mg Branch calcium(777 mg) Tab ceFEPIme Yes 1g Inject 1 g Uni vers (MAXIPIME) 1-06 intravenou ity of 1 gram 15:39: sly. [place] injection [address] [place] [address] Branch cholecalcif Yes 1000U Take 1,000 Univers garcia, 1-06 Units by ity of vitamin D3, 15:39: [facility]. [facility] Medical (1,000 Branch unit) tablet clindamycin Yes 300mg Take 300 U nivers 300 mg 1-06 mg by ity of capsule 15:39: mouth. [address] fluocinonid Yes Apply to Un kayla e 0.05 % 1-06 area(s). ity of ointment 15:39: [address] folic acid Yes Take by Univ ers 0.8 mg Cap 1-06 mouth. ity of 15:39: [address] levoFLOXaci Yes 500mg Take 500 U nivers n 500 mg 1-06 mg by ity of tablet 15:39: mouth. [address] nitroglycer Yes .4mg Place 0.4 U nivers in 0.4 mg 1-06 mg under ity of sublingual 15:39: the [place] [id number] tongue. [facility] KCL 10 mEq Yes 10meq Take 10 Uni vers tablet 1-06 mEq by ity of 15:39: mouth. [address] VITAMIN B Yes 1{tbl} Take 1 Univ ers COMPLEX 1-06 tablet by ity of ORAL 15:39: mouth. [address] zinc Yes 220mg Take 220 Univers sulfate 220 1-06 mg by ity of (50) mg 15:39: mouth. [place] capsule [address] [place] [address] budesonide- 2021-0 Yes 2{puff} Inhale 2 Univers formoteroL 1-06 Puffs. ity of 80-4.5 15:39: [facility] inhaler Branch budesonide- Yes 2{puff} Inhale 2 Univers formoteroL 1-06 Puffs. ity of 160-4.5 15:39: [place] mcgactuati Medical on inhaler Branch gabapentin Yes 400mg Take 400 Un kayla 400 mg 1-06 mg by ity of capsule 15:39: mouth. [address] hydrALAZINE Yes 25mg Take 25 mg Univers 25 mg 1-06 by mouth. ity of tablet 15:39: [address] hydrOXYzine Yes 25mg Take 25 mg Univers 25 mg 1-06 by mouth. ity of tablet 15:39: [address] lidocaine 5 Yes Apply to Un kayla % ointment 07-17 area(s). ity o f 15:39: [address] triamcinolo Yes Apply to Un kayla ne 06 area(s). ity of acetonide 15:39: [place] 0.1 % cream [address] [place] [address] atorvastati 2019-07 Yes Univer s n 20 mg 1-22 ity of tablet 00:00: [facility] atorvastati 2019-07 Yes Univer s n 20 mg 1-22 ity of tablet 00:00: [facility] atorvastati 2019-07 Yes Univer s n 20 mg 1-22 ity of tablet 00:00: [facility] atorvastati 2019-07 Yes Univer s n 20 mg 1-22 ity of tablet 00:00: [facility] atorvastati 2019-07 Yes Univer s n 20 mg 1-22 ity of tablet 00:00: [address] [place] [address] losartan 2019- Yes Univers 100 mg 1-16 ity of tablet 00:00: [address] [place] [address] cloNIDine 2019- Yes Univers 0.1 mg 1-16 ity of tablet 00:00: [address] [place] [address] losartan 2019- Yes Univers 100 mg 1-16 ity of tablet 00:00: [address] [place] [address] cloNIDine 2019- Yes Univers 0.1 mg 1-16 ity of tablet 00:00: [address] losartan 2019- Yes Univers 100 mg 1-16 ity of tablet 00:00: [address] cloNIDine 2020- Yes Univers 0.1 mg 1-16 ity of tablet 00:00: [place] [address] Medical [place] losartan 2019- Yes Univers 100 mg 1-16 ity of tablet 00:00: [address] cloNIDine 2019- Yes Univers 0.1 mg 1-16 ity of tablet 00:00: [address] losartan 2019- Yes Univers 100 mg 1-16 ity of tablet 00:00: [address] cloNIDine 2019- Yes Univers 0.1 mg 1-16 ity of tablet 00:00: [address] amiodarone 2019-07 Yes Univers 200 mg 1-15 ity of tablet 00:00: [address] SERTraline 2019-07 Yes Univers 50 mg 1-15 ity of tablet 00:00: [address] spironolact 2019-07 Yes Univer s one 25 mg 1-15 ity of tablet 00:00: [address] amiodarone 2019- Yes Univers 200 mg 1-15 ity of tablet 00:00: [address] SERTraline 2019- Yes Univers 50 mg 1-15 ity of tablet 00:00: [address] spironolact 2019- Yes Univer s one 25 mg 1-15 ity of tablet 00:00: [address] amiodarone 2019-07 Yes Univers 200 mg 1-15 ity of tablet 00:00: [address] SERTraline 2020- Yes Univers 50 mg 1-15 ity of tablet 00:00: [address] spironolact 2019- Yes Univer s one 25 mg 1-15 ity of tablet 00:00: [address] amiodarone 2020- Yes Univers 200 mg 1-15 ity of tablet 00:00: [address] SERTraline 2020- Yes Univers 50 mg 1-15 ity of tablet 00:00: [address] spironolact 2019- Yes Univer s one 25 mg 1-15 ity of tablet 00:00: [address] amiodarone 2020- Yes Univers 200 mg 1-15 ity of tablet 00:00: [place] 00 [facility] SERTraline 2020- Yes Univers 50 mg 1-15 ity of tablet 00:00: [place] [facility] spironolact 2020- Yes Univer s one 25 mg 1-15 ity of tablet 00:00: [place] [facility] albuterol 2020- Yes Univers 90 1-10 ity of mcg/actuati 00:00: [place] on inhaler Medical Branch furosemide 2020- Yes Univers 80 mg 1-10 ity of tablet 00:00: [place] [facility] albuterol 2020- Yes Univers 90 1-10 ity of mcg/actuati 00:00: [place] on inhaler Medical Branch furosemide 2020- Yes Univers 80 mg 1-10 ity of tablet 00:00: [place] [facility] albuterol 2019- Yes Univers 90 1-10 ity of mcg/actuati 00:00: on inhaler Medical Branch furosemide 2019- Yes Univers 80 mg 1-10 ity of tablet 00:00: [place] [facility] albuterol 2020- Yes Univers 90 1-10 ity of mcg/actuati 00:00: [place] on inhaler Medical Branch furosemide 2020- Yes Univers 80 mg 1-10 ity of tablet 00:00: [place] [facility] albuterol 2020- Yes Univers 90 1-10 ity of mcg/actuati 00:00: [place] on inhaler Medical Branch furosemide 2020- Yes Univers 80 mg 1-10 ity of tablet 00:00: [place] [facility] predniSONE 2020-1 Yes Univers 10 mg 1-08 ity of tablet 00:00: [place] [facility] predniSONE 2020-1 Yes Univers 10 mg 1-08 ity of tablet 00:00: [place] [facility] predniSONE 2020-1 Yes Univers 10 mg 1-08 ity of tablet 00:00: [place] [facility] predniSONE 2020-1 Yes Univers 10 mg 1-08 ity of tablet 00:00: [place] [facility] predniSONE 2020-1 Yes Univers 10 mg 1-08 ity of tablet 00:00: [place] [facility] Lidocaine 5 2018-0 Yes Apply to Un kayla % cream 5-04 area(s) as ity of 00:00: needed for [place] [address] Pain Medical (scale Branch 7-10). Lidocaine 5 2018-0 Yes Apply to Un kayla % cream 5-04 area(s) as ity of 00:00: needed for [place] Pain Medical (scale Branch 7-10). Lidocaine 5 Yes Apply to Un kayla % cream 5-04 area(s) as ity of 00:00: needed for [place] [facility] Medical (scale Branch 7-10). Lidocaine 5 Yes Apply to Un kayla % cream 5-04 area(s) as ity of 00:00: needed for [place] [facility] (scale Branch 7-10). Lidocaine 5 Yes Apply to Un kayla % cream 5-04 area(s) as ity of 00:00: needed for [place] [facility] (scale Branch 7-10). Turmeric Yes Take by Karmen 500 MG oral 3-28 mouth Seybold Cap 14:03: 04 Acetaminoph Yes 1{tbl} Take 1 Ke lsey en-Codeine 3- tablet by Seyb old #3 300-30 14:01: mouth MG oral Tab 58 Furosemide Yes 20mg Take 20 mg K elsey 20 MG oral 3-28 by mouth Seybo ld Tab 14:01: 58 Amitriptyli Yes 25mg Take 25 mg Karmen ne HCl 25 3-28 by mouth Seybol d MG oral Tab 14:01: 58 Gabapentin Yes 300mg Take 300 Ke lsey 300 MG oral 3-28 mg by Seybold Cap 14:01: mouth 58 Potassium Yes 10meq Take 10 Aimee ey chloride 10 3-28 mEq by Seybol d MEQ oral 14:01: mouth Tab CR 58 Collagenase Yes Apply 1 James sey 250 UNIT/GM 10-06 applicatio Se ybold apply 14:01: n externally 58 topically Ointment allopurinol Yes 300mg QD Take 300 M ethodi (ZYLOPRIM) 8-[address] 300 MG 12:11: mouth Hospita tablet 01 every l evening. amitriptyli Yes 25mg QD Take 25 mg Methodi ne (ELAVIL) 8-[address] 25 MG 12:11: nightly. Hospita tablet 01 l carvedilol Yes 25mg Q.5D Take 25 mg M ethodi (COREG) 25 8-[address] MG tablet 12:11: (two) Hospita 01 times a l day with meals. collagenase Yes 1{appli Q24H Apply 1 Methodi (SANTYL) 8-23 cation} applicatio st ointment 12:11: n Hospita 01 topically l daily as needed. budesonide- Yes 2{puff} Q.5D Inhale 2 Methodi formoterol 8-[address] (SYMBICORT) 12:11: (two) Hospi ta 80-4.5 01 times a l mcg/actuati day. on inhaler nitroglycer Yes .4mg Place 0.4 M ethodi in 8-[address] (NITROSTAT) 12:11: the tongue Hospita 0.4 MG SL 01 every 5 l tablet (five) minutes as needed for chest pain. aspirin Yes 81mg QD Take 81 mg Meth urvashi (ECOTRIN) 8-[address] 81 MG 12:11: daily. Hospita enteric 01 l coated tablet b complex Yes 1{tbl} QD Take 1 Meth urvashi vitamins 8-[address] tablet 12:11: mouth Hospita 01 daily. l cholecalcif Yes 1000U QD Take 1,000 Methodi garcia, 8-[address] vitamin D3, 12:11: mouth Hospi ta (VITAMIN 01 daily. l D3) 1,000 unit tablet triamcinolo Yes 1{appli Q24H Apply 1 Methodi ne 8-23 cation} applicatio st (KENALOG) 12:11: n Hospita 0.1 % 01 topically l ointment daily as needed. furosemide Yes 20mg QD Take 20 mg M ethodi (LASIX) 20 8-[address] mg tablet 12:11: daily. Hospit a 01 l valsartan-h Yes .5{tbl} QD Take 0.5 Methodi ydrochlorot 8-[address] hiazide 12:11: mouth Hospita (DIOVAN-HCT 01 daily. l ) 320-25 mg per tablet multivitami Yes 1{tbl} QD Take 1 Me thodi n 8-[address] (THERAGRAN) 12:11: mouth Hospi ta tablet 01 daily. l zinc 2017-0 Yes 220mg QD Take 220 Methodi sulfate 8-[address] (ZINCATE) 12:11: mouth Hospita 220 (50) mg 01 daily. l capsule fluocinonid 2017-0 Yes 1{appli Q24H Apply 1 Methodi e (LIDEX) 8-23 cation} applicatio s t 0.05 % 12:11: n Hospita ointment 01 topically l daily as needed. gabapentin 2017-0 Yes 600mg Q.[id number] Take 600 Methodi (NEURONTIN) 8-23 [id number] mg by s t 300 mg 12:11: 3D mouth 3 Hospita capsule 01 (three) l times a day. HYDROcodone 2017-0 Yes 1{tbl} Q8H Take 1 Me thodi -acetaminop 8-[address] hen (NORCO) 12:11: mouth Hospi ta 10-325 mg 01 every 8 l per tablet (eight) hours as needed for moderate pain. levoFLOXaci 20170 Yes 500mg QD Take 500 M ethodi n 8-[address] (LEVAQUIN) 12:11: mouth Hospit a 500 MG 01 daily. For l tablet 10 days. Start date: 02/21/2017 lidocaine 2017-0 Yes 1{appli Q24H Apply 1 Me thodi (XYLOCAINE) 8-23 cation} applicatio st 5 % 12:11: n Hospita ointment 01 topically l daily as needed for mild pain. potassium 2017-0 Yes 10meq QD Take 10 Meth urvashi chloride 8-[address] (K-DUR,KLOR 12:11: mouth Hospi ta -CON) 10 01 daily. l MEQ CR tablet tiZANidine 20170 Yes 4mg QD Take 4 mg Me thodi (ZANAFLEX) 8-[address] 4 MG tablet 12:11: nightly. Ho spita 01 l hydrOXYzine 2017-0 Yes 25mg Q8H Take 25 mg Methodi (ATARAX) 25 8-[address] MG tablet 12:11: every 8 Hospi ta 01 (eight) l hours as needed for itching. allopurinol 2017-0 Yes 300mg QD Take 300 M ethodi (ZYLOPRIM) 8-[address] 300 MG 12:11: mouth Hospita tablet 01 every l evening. amitriptyli Yes 25mg QD Take 25 mg Methodi ne (ELAVIL) 8-[address] 25 MG 12:11: nightly. Hospita tablet 01 l carvedilol Yes 25mg Q.5D Take 25 mg M ethodi (COREG) 25 8-[address] MG tablet 12:11: (two) Hospita 01 times a l day with meals. collagenase Yes 1{appli Q24H Apply 1 Methodi (SANTYL) 8-23 cation} applicatio st ointment 12:11: n Hospita 01 topically l daily as needed. budesonide- Yes 2{puff} Q.5D Inhale 2 Methodi formoterol 8-[address] (SYMBICORT) 12:11: (two) Hospi ta 80-4.5 01 times a l mcg/actuati day. on inhaler nitroglycer Yes .4mg Place 0.4 M ethodi in 8-[address] (NITROSTAT) 12:11: the tongue Hospita 0.4 MG SL 01 every 5 l tablet (five) minutes as needed for chest pain. aspirin Yes 81mg QD Take 81 mg Meth urvashi (ECOTRIN) 8-[address] 81 MG 12:11: daily. Hospita enteric 01 l coated tablet b complex Yes 1{tbl} QD Take 1 Meth urvashi vitamins 8-[address] tablet 12:11: mouth Hospita 01 daily. l cholecalcif Yes 1000U QD Take 1,000 Methodi garcia, 8-[address] vitamin D3, 12:11: mouth Hospi ta (VITAMIN 01 daily. l D3) 1,000 unit tablet triamcinolo Yes 1{appli Q24H Apply 1 Methodi ne 8-23 cation} applicatio st (KENALOG) 12:11: n Hospita 0.1 % 01 topically l ointment daily as needed. furosemide Yes 20mg QD Take 20 mg M ethodi (LASIX) 20 8-[address] mg tablet 12:11: daily. Hospit a 01 l valsartan-h Yes .5{tbl} QD Take 0.5 Methodi ydrochlorot 8-[address] hiazide 12:11: mouth Hospita (DIOVAN-HCT 01 daily. l ) 320-25 mg per tablet multivitami 2017-0 Yes 1{tbl} QD Take 1 Me thodi n 8-[address] (THERAGRAN) 12:11: mouth Hospi ta tablet 01 daily. l zinc 2017-0 Yes 220mg QD Take 220 Methodi sulfate 8-[address] (ZINCATE) 12:11: mouth Hospita 220 (50) mg 01 daily. l capsule fluocinonid 2017-0 Yes 1{appli Q24H Apply 1 Methodi e (LIDEX) 8-23 cation} applicatio s t 0.05 % 12:11: n Hospita ointment 01 topically l daily as needed. gabapentin 2017-0 Yes 600mg Q.[id number] Take 600 Methodi (NEURONTIN) 8-23 [id number] mg by s t 300 mg 12:11: 3D mouth 3 Hospita capsule 01 (three) l times a day. HYDROcodone 2017-0 Yes 1{tbl} Q8H Take 1 Me thodi -acetaminop 8-[address] hen (NORCO) 12:11: mouth Hospi ta 10-325 mg 01 every 8 l per tablet (eight) hours as needed for moderate pain. levoFLOXaci 20170 Yes 500mg QD Take 500 M ethodi n 8-[address] (LEVAQUIN) 12:11: mouth Hospit a 500 MG 01 daily. For l tablet 10 days. Start date: 02/21/2017 lidocaine 2017-0 Yes 1{appli Q24H Apply 1 Me thodi (XYLOCAINE) 8-23 cation} applicatio st 5 % 12:11: n Hospita ointment 01 topically l daily as needed for mild pain. potassium 2017-0 Yes 10meq QD Take 10 Meth urvashi chloride 8-[address] (K-DUR,KLOR 12:11: mouth Hospi ta -CON) 10 01 daily. l MEQ CR tablet tiZANidine 20170 Yes 4mg QD Take 4 mg Me thodi (ZANAFLEX) 8-[address] 4 MG tablet 12:11: nightly. Ho spita 01 l hydrOXYzine 2016-0 Yes 25mg Q8H Take 25 mg Methodi (ATARAX) 25 8-[address] MG tablet 12:11: every 8 Hospi ta 01 (eight) l hours as needed for itching. OMEGA-3S/DH 2015- Yes Take by [facility] A/EPA/FISH 8-17 [facility] OIL (OMEGA 13:19: Medical 3 ORAL) 20 Center valsartan-h 2015- Yes 1{tbl} QD Take [address] ydrochlorot 8-17 tablet by Sammie es hiazide 13:19: mouth Medical (DIOVAN-HCT 20 daily. Center ) 320-25 mg per tablet triamcinolo 2015- Yes Q.5D Apply [facility] 8-17 topically [facility] (KENALOG) 13:19: 2 (two) Medic al 0.1 % 20 times Center topical daily. ointment b complex 2015- Yes 1{tbl} QD Take [address] vitamins 8-17 tablet by [facility] tablet 13:19: mouth Medical 20 daily. [place] multivitami Yes 1{tbl} QD Take [address] n per 8-17 tablet by [facility] tablet 13:19: mouth Medical 20 daily. [place] furosemide 2015- Yes 40mg Q.5D Take [address] (LASIX) 40 8-17 by mouth 2 Sammie es MG tablet 13:19: (two) Medical 20 times Center daily 40 MG IN AM, 20 MG IN PM . hydrALAZINE 2015- Yes 25mg Q.5D Take [address] (APRESOLINE 8-17 by mouth 2 Pallavi kes ) 25 MG 13:19: (two) Medical tablet 20 times Center daily. gabapentin 2016-0 Yes 300mg Q.[id number] Take [address] (NEURONTIN) 8-17 [id number] mg by L ukes 300 MG 13:19: 3D mouth 3 Medical capsule 20 (three) Center times daily. HYDROcodone 2016-0 Yes 1{tbl} Take [address] -acetaminop 8-17 tablet by Sammie es hen (NORCO 13:19: mouth Medica l 10-325) 20 every 6 Center 10-325 mg (six) per tablet hours as needed for Pain. ZINC 2015-0 Yes QD Take by [facility] SULFATE 8-17 mouth [facility] ORAL 13:19: daily. Medical 20 Center acetaminoph 2016- Yes 1{tbl} Take [address] en-codeine 8-17 tablet by Pedro Luis s (TYLENOL 13:19: mouth Medical #3) 300-30 20 every 4 Center mg per (four) tablet hours as needed for Pain. acetaminoph 2015- Yes 1{tbl} Take [address] en-codeine 8-17 tablet by Pedro Luis moran (TYLENOL 13:19: mouth Medical #3) 300-30 20 every 4 Center mg per (four) tablet hours as needed for Pain. amitriptyli Yes 25mg QD Take [address] ne (ELAVIL) 8-17 by mouth Luke s 25 MG 13:19: nightly. Medical tablet 20 [place] TiZANidine 2015- Yes 4mg Q.[id number] Take [address] (ZANAFLEX) 8-17 [id number] by mouth 3 [facility] 4 MG 13:19: 3D (three) Medical capsule 20 times Center daily 1 EVERY 8 HRS, AND 1.5 TAB AT BEDTIME. potassium 2015- Yes Take by [facility] 99 mg Tab 8-17 [facility]. [facility] 13:19: Medical 20 [place] OMEGA-3S/DH 2016- Yes Take by [facility] A/EPA/FISH 8-17 mouth. [facility] OIL (OMEGA 13:19: Medical 3 ORAL) 20 [place] amitriptyli Yes 25mg QD Take [address] ne (ELAVIL) 8-17 by mouth Luke s 25 MG 13:19: nightly. Medical tablet 20 [place] valsartan-h 2015- Yes 1{tbl} QD Take [address] ydrochlorot 8-17 tablet by Sammie es hiazide 13:19: mouth Medical (DIOVAN-HCT 20 daily. Center ) 320-25 mg per tablet triamcinolo 2016-0 Yes Q.5D Apply [facility] 8-17 topically [facility] (KENALOG) 13:19: 2 (two) Medic al 0.1 % 20 times Center topical daily. ointment b complex 2015-0 Yes 1{tbl} QD Take [address] vitamins 8-17 tablet by [facility] tablet 13:19: mouth Medical 20 daily. [place] multivitami 2015-0 Yes 1{tbl} QD Take [address] n per 8-17 tablet by [facility] tablet 13:19: mouth Medical 20 daily. Center furosemide 2016-0 Yes 40mg Q.5D Take [address] (LASIX) 40 8-17 by mouth 2 Sammie es MG tablet 13:19: (two) Medical 20 times Center daily 40 MG IN AM, 20 MG IN PM . hydrALAZINE 2016-0 Yes 25mg Q.5D Take [address] (APRESOLINE 8-17 by mouth 2 Pallavi kes ) 25 MG 13:19: (two) Medical tablet 20 times Center daily. gabapentin 2016-0 Yes 300mg Q.[id number] Take [address] (NEURONTIN) 8-17 [id number] mg by L ukes 300 MG 13:19: 3D mouth 3 Medical capsule 20 (three) Center times daily. HYDROcodone 2016-0 Yes 1{tbl} Take [address] -acetaminop 8-17 tablet by Sammie es hen (NORCO 13:19: mouth Medica l 10-325) 20 every 6 Center 10-325 mg (six) per tablet hours as needed for Pain. ZINC 2016-0 Yes QD Take by [facility] SULFATE 8-17 mouth [facility] ORAL 13:19: daily. Medical 20 Center TiZANidine 2016-0 Yes 4mg Q.[id number] Take [address] (ZANAFLEX) 8-17 [id number] by mouth 3 [facility] 4 MG 13:19: 3D (three) Medical capsule 20 times Center daily 1 EVERY 8 HRS, AND 1.5 TAB AT BEDTIME. acetaminoph 2016-0 Yes 1{tbl} Take [address] en-codeine 8-17 tablet by Pedro Luis s (TYLENOL 13:19: mouth Medical #3) 300-30 20 every 4 Center mg per (four) tablet hours as needed for Pain. amitriptyli 2016-0 Yes 25mg QD Take [address] ne (ELAVIL) 8-17 by mouth Luke s 25 MG 13:19: nightly. Medical tablet 20 Center TiZANidine 2016-0 Yes 4mg Q.[id number] Take [address] (ZANAFLEX) 8-17 [id number] by mouth 3 [facility] 4 MG 13:19: 3D (three) Medical capsule 20 times Center daily 1 EVERY 8 HRS, AND 1.5 TAB AT BEDTIME. potassium 2016- Yes Take by [facility] 99 mg Tab 8-17 mouth. [facility] 13:19: Medical 20 Center OMEGA-3S/DH 2015-0 Yes Take by [facility] A/EPA/FISH 8-17 mouth. [facility] OIL (OMEGA 13:19: Medical 3 ORAL) 20 Center valsartan-h 2015- Yes 1{tbl} QD Take [address] ydrochlorot 8-17 tablet by Sammie es hiazide 13:19: mouth Medical (DIOVAN-HCT 20 daily. Center ) 320-25 mg per tablet triamcinolo 2016-0 Yes Q.5D Apply [facility] 8-17 topically [facility] (KENALOG) 13:19: 2 (two) Medic al 0.1 % 20 times Center topical daily. ointment b complex 2015- Yes 1{tbl} QD Take [address] vitamins 8-17 tablet by [facility] tablet 13:19: mouth Medical 20 daily. [place] multivitami 0 Yes 1{tbl} QD Take [address] n per 8-17 tablet by [facility] tablet 13:19: mouth Medical 20 daily. [place] furosemide 2015-0 Yes 40mg Q.5D Take [address] (LASIX) 40 8-17 by mouth 2 Sammie es MG tablet 13:19: (two) Medical 20 times Center daily 40 MG IN AM, 20 MG IN PM . hydrALAZINE 2015-0 Yes 25mg Q.5D Take [address] (APRESOLINE 8-17 by mouth 2 Pallavi kes ) 25 MG 13:19: (two) Medical tablet 20 times Center daily. gabapentin 2016-0 Yes 300mg Q.[id number] Take [address] (NEURONTIN) 8-17 [id number] mg by L ukes 300 MG 13:19: 3D mouth 3 Medical capsule 20 (three) Center times daily. HYDROcodone 2016-0 Yes 1{tbl} Take [address] -acetaminop 8-17 tablet by Sammie es hen (NORCO 13:19: mouth Medica l 10-325) 20 every 6 Center 10-325 mg (six) per tablet hours as needed for Pain. ZINC 2015-0 Yes QD Take by [facility] SULFATE 8-17 mouth [facility] ORAL 13:19: daily. Medical 20 Center potassium 2016-0 Yes Take by [facility] 99 mg Tab 8-17 mouth. [facility] 13:19: [address] Nystatin 2014-07 Yes Apply to Chris y [id number] 2-02 affected Seybold UNIT/GM 00:00: area twice apply 00 daily externally Cream Nystatin 2014-07 Yes 1U Apply 1 Karmen [id number] 2-02 unit Seybold UNIT/GM 00:00: topically apply 00 externally Powder triamcinolo Yes Apply to Un kayla ne 3-12 area(s) 2 ity of acetonide 00:00: (two) [place] (KENALOG) 00 times Medical 0.1 % daily. Branch ointment triamcinolo Yes Apply to Un kayla ne 3-12 area(s) 2 ity of acetonide 00:00: (two) [place] (KENALOG) 00 times Medical 0.1 % daily. Branch ointment triamcinolo Yes Apply to Un kayla ne 3-12 area(s) 2 ity of acetonide 00:00: (two) [place] (KENALOG) 00 times Medical 0.1 % daily. Branch ointment triamcinolo Yes Apply to Un kayla ne 3-12 area(s) 2 ity of acetonide 00:00: (two) [place] (KENALOG) 00 times Medical 0.1 % daily. Branch ointment triamcinolo Yes Apply to Un kayla ne 3-12 area(s) 2 ity of acetonide 00:00: (two) [place] (KENALOG) 00 times Medical 0.1 % daily. Branch ointment allopurinol Yes Univer s (ZYLOPRIM) 2-08 ity of 300 mg 00:00: [place] tablet 00 Medical Branch allopurinol Yes Univer s (ZYLOPRIM) 2-08 ity of 300 mg 00:00: [place] tablet 00 Medical Branch allopurinol 0 Yes Univer s (ZYLOPRIM) 2-08 ity of 300 mg 00:00: [place] tablet 00 Medical Branch allopurinol 0 Yes Univer s (ZYLOPRIM) 2-08 ity of 300 mg 00:00: [place] tablet 00 Medical Branch allopurinol 0 Yes Univer s (ZYLOPRIM) 2-08 ity of 300 mg 00:00: [place] tablet 00 Medical [place] furosemide Yes Univers (LASIX) 40 2-03 ity of mg tablet 00:00: [place] 00 [facility] furosemide Yes Univers (LASIX) 40 2-03 ity of mg tablet 00:00: [place] 00 Medical [place] furosemide Yes Univers (LASIX) 40 2-03 ity of mg tablet 00:00: [place] 00 [facility] furosemide Yes Univers (LASIX) 40 2-03 ity of mg tablet 00:00: [place] 00 [facility] furosemide Yes Univers (LASIX) 40 2-03 ity of mg tablet 00:00: [place] 00 [facility] Vital Signs Vital Name Observation Time Observation Value Comments Source Systolic blood 2021-12-10 13:21:00 146 mm[Hg] Karmen Seybold pressure Diastolic blood 2021-12-10 13:21:00 87 mm[Hg] Kelse y Seybold pressure Heart rate 2021-12-10 13:21:00 78 /min Karmen Patrick dinahbold Body temperature 2021-12-10 13:21:00 36.11 Carolyne Aimee ey Seybold Respiratory rate 2021-12-10 13:21:00 14 /min Aimee ey Seybold Body height 2021-12-10 13:21:00 170.2 cm Karmen Patrick dinahbochhaya Body weight 2021-12-10 13:21:00 126.1 kg Karmen Patrick dinahbochhaya BMI 2021-12-10 13:21:00 43.54 kg/m2 Karmen Patrick dinahbochhaya Oxygen saturation in 2021-12-10 13:21:00 95 /min Karmen Seybold Arterial blood by Pulse oximetry Oxygen saturation in 2021-11-11 19:28:00 96 /min Karmen Seybold Arterial blood by Pulse oximetry Systolic blood 2021-11-11 19:28:00 150 mm[Hg] Karmen Seybold pressure Diastolic blood 2021-11-11 19:28:00 83 mm[Hg] Kelse y Seybold pressure Heart rate 2021-11-11 19:28:00 60 /min Karmen S eybold Body temperature 2021-11-11 19:28:00 36.61 Carolyne Aimee ey Seybold Respiratory rate 2021-11-11 19:28:00 16 /min Aimee Valdes Body height 2021-11-11 19:28:00 170.2 cm Karmen huynh Body weight 2021-11-11 19:28:00 126.735 kg Karmen huynh BMI 2021-11-11 19:28:00 43.76 kg/m2 Karmen huynh Systolic blood 2021-10-23 21:36:00 152 mm[Hg] [facility] Diastolic blood 2021-10-23 21:36:00 91 mm[Hg] Unive rsity [facility] Heart rate 2021-10-23 21:36:00 63 /min [facility] Body temperature 2021-10-23 21:36:00 36.94 [facility] Respiratory rate 2021-10-23 21:36:00 20 [facility] Body height 2021-10-23 21:36:00 170.2 cm [facility] [facility] Body weight 2021-10-23 21:36:00 127.914 kg [facility] BMI 2021-10-23 21:36:00 44.17 kg/m2 [facility] Procedures Procedure Date / Time Performing Clinician Source Performed BI ULTRASOUND BREAST 2022-01-16 17:13:33 Anabel Milligan [facility] LIMITED RIGHT [facility] BI DIAGNOSTIC 2022-01-16 17:03:36 Anabel Milligan Goodman o [facility] TOMOSYNTHESIS BILATERAL [facility] HIGH RISK HPV-THIN PREP 2021-10-23 22:01:00 Anabel Milligan [facility] PAP SMEAR-LIQUID 2021-10-23 22:01:00 Anabel Milligan [facility] BASED-[facility] Plan of Care Planned Activity Planned Date Details Comments Source Future Scheduled 2022-03-04 HEPATITIS B VACCINES [facility] Test 21:43:24 (1 of 3 - 3-dose series) [code = HEPATITIS B VACCINES (1 of 3 - 3-dose series)] Future Scheduled 2022-03-04 COVID-19 VACCINE (#1) [facility] Test 21:43:24 [code = COVID-19 VACCINE (#1)] Future Scheduled 2022-03-04 Screening for [facility] Test 21:43:24 malignant neoplasm of cervix (procedure) [code = 479807849] Future Scheduled 2022-03-04 BREAST CANCER [facility] Test 21:43:24 SCREENING [code = BREAST CANCER SCREENING] Future Scheduled 2022-03-04 COLONOSCOPY SCREENING [facility] Test 21:43:24 [code = COLONOSCOPY SCREENING] Future Scheduled 2022-03-04 SHINGLES VACCINES (1 [facility] Test 21:43:24 of 2) [code = SHINGLES VACCINES (1 of 2)] Future Scheduled 2022-03-04 65+ [facility]OCOCCAL [facility] Test 21:43:24 VACCINE (1 - PCV) [code = 65+ PNEUMOCOCCAL VACCINE (1 - PCV)] Future Scheduled 2022-03-04 INFLUENZA VACCINE [facility] Test 21:43:24 [code = INFLUENZA VACCINE] Future Scheduled 2021-10-15 COVID-19 VACCINE (1) [facility] Test 09:55:38 [code = COVID-19 VACCINE (1)] Future Scheduled 2021-10-15 Screening for [facility] Test 09:55:38 malignant neoplasm of cervix (procedure) [code = 430194275] Future Scheduled 2021-10-15 BREAST CANCER [facility] Test 09:55:38 SCREENING [code = BREAST CANCER SCREENING] Future Scheduled 2021-10-15 COLONOSCOPY SCREENING [facility] Test 09:55:38 [code = COLONOSCOPY SCREENING] Future Scheduled 2021-10-15 SHINGLES [facility]ACCINES (#[facility] Test 09:55:38 [code = SHINGLES VACCINES (#1)] Future Scheduled 2021-10-15 INFLUENZA VACCINE [facility] Test 09:55:38 [code = INFLUENZA VACCINE] Encounters Start End Encounter Admission Attending Care Care Encounter Source Date/Time Date/Time Type Type Clinicians Facility Department ID 2020-06-01 Inpatient KALYAN JeronimotracyPASHA dewey SURG [id number] [facility] 10:00:[address] [facility] [id number] [facility] 2022-10-27 2022-10-27 Outpatient ANABEL [facility] [id number] Univers 10:00:00 10:00:00 [facility] 2022-05-29 2022-05-29 Outpatient KARMEN JHA KARMEN [id number] Karmen 09:30:00 09:30:00 CAPO Seybol d 2022-02-25 2022-02-25 Office Pablo Jha 1.2.840.114 [id number] Karmen 09:00:00 09:30:00 Visit Capo Ly 350.1.13.13 Se ybold 1.2.7.2.686 [id number] 2022-02-12 2022-02-12 Outpatient LAB90 KARMEN KARMEN [id number] Karmen 11:10:00 11:10:00 Seybol d 2022-02-12 2022-02-12 Outpatient JAMES JHAMARQUISE HARPER [id number] Karmen 00:00:00 00:00:00 CAPO Seybol d 2022-01-28 2022-01-28 Office Pablo Jha [id number] Karmen 15:00:00 15:30:00 Visit Capo Ly 350.1.13.13 Se ybold 1.2.7.2.686 [id number] 2022-01-28 2022-01-28 Outpatient KARMEN JHA KARMEN [id number] Karmen 08:00:00 08:00:00 CAPO Seybol d 2022-01-16 2022-01-16 [facility] Anabel Milligan [facility] [id number] Univers 11:05:17 23:59:00 Encounter SPECIALTY 350.1.13.10 ity of CARE 4.2.7.2.686 [facility] AT [id number] [address] 2022-01-16 2022-01-16 Outpatient R [facility] [id number] Univers 11:30:00 11:30:00 [id number] ity [facility] 2022-01-16 2022-01-16 Outpatient R [facility] [id number] Univers 11:04:50 11:04:00 ity [facility] 2022-01-16 2022-01-16 [facility] Srini [facility] 1.2.840.114 [id number] Univers 11:00:00 11:04:00 Encounter SPECIALTY 350.1.13.10 ity of CARE 4.2.7.2.686 [facility] AT [id number] [place] [facility] 2021-12-11 2021-12-11 Telephone Anabel Milligan [facility] 1.2.840.11 [id number] Univers 00:00:00 00:00:00 RICARDO 350.1.13.10 it y of PEDIATRIC 4.2.7.2.686 [facility] [id number] [address] 2021-12-10 2021-12-10 Office Pablo Jha 1.2.840.114 [id number] Karmen 08:15:00 08:45:00 Visit Capo Ly 350.1.13.13 Se ybold 1.2.7.2.686 [id number] 2021-12-09 2021-12-09 Outpatient KARMEN JHA [id number] Karmen 00:00:00 00:00:00 CAPO Seybol d 2021-12-04 2021-12-04 Outpatient LAB90 KARMEN HARPER [id number] Karmen 08:55:00 08:55:00 Seybol d 2021-12-01 2021-12-01 Outpatient KARMEN JHA [id number] Karmen 00:00:00 00:00:00 CAPO Seybol d 2021-12-01 2021-12-01 Outpatient KARMEN JHA [id number] Karmen 00:00:00 00:00:00 CAPO Seybol d 2021-11-24 2021-11-24 Telephone Anabel Milligan [facility] 1.2.840.11 [id number] Univers 00:00:00 00:00:00 RICARDO 350.1.13.10 it y [facility] 4[place].7.2.[facility] [id number] [address] 2021-11-14 2021-11-14 Outpatient KARMEN JHA [id number] Karmen 00:00:00 00:00:00 CAPO Seybol d 2021-11-13 2021-11-13 Outpatient KARMEN JHA KARMEN [id number] Karmen 00:00:00 00:00:00 CAPO Seybol d 2021-11-12 2021-11-12 Outpatient KARMEN JHA [id number] Karmen 00:00:00 00:00:00 CAPO Seybol d 2021-11-11 2021-11-11 Office Pablo Jha 1.2.840.114 [id number] Karmen 13:30:00 14:00:00 Visit Capo Ly 350.1.13.13 Se chapis 1.2.7.2.686 [id number] 2021-10-23 2021-10-23 Office Anabel Milligan [facility] 1.2.840.114 [id number] Univers 15:30:00 17:29:14 Visit RICARDO 350.1.13.10 it y of WOMEN'S 4.2.7.2.686 [facility] [id number] [place] [id number] [address] 2021-10-23 2021-10-23 Outpatient R [facility] [id number] Univers 15:30:00 17:29:14 [facility] Results Test Description Test Time Test Comments Results Result [facility] e Comments - CT ABDOMEN W/O 2020-06-01 CONTRAST 17:53:00 [facility] 1955 Sex: F Patient Name: ROSALIND LOCKHART Unit No: [id number] EXAMS: CPT CODE: [id number] CT ABDOMEN W/O CONTRAST 60591 HISTORY: TAA, coronary artery disease. CT the chest, unenhanced. Reformatted sagittal and coronal images. COMPARISON: None Automated exposure control, iterative reconstruction technique, and/or adjustment of mA and/or kV according to patient's size was utilized for optimum radiation dose reduction. Neither intravenous nor oral contrast is requested for the exam. Significant pathology may be obscured. The aorta with normal diameter present, at the ascending level. Aortic arch 3.7 cm, descending aorta at 3.8 cm. No findings of aneurysm. Only minimal atherosclerotic calcifications are seen. A very prominent band occurs in the aorta at the aortic hiatus where it crosses midline towards the left and then swings back to the midline. Coronary arteries with fairly mild calcifications. Cardiomegaly is present. Trace pericardial effusion seen thickness at 3.2 mm. The mediastinum with a densely calcified right mediastinal nodes from old granulomatous exposure, the granuloma in the superior aspect of the right lower lobe. Chest wall structures are intact. No axillary, pathologic hilar or mediastinal adenopathy.The lung window settings with well-inflated and clear lungs. Some minimal atelectasis seen in the left upper lobe paralleling the fissure line and at the lower lobes bilaterally possibly some mild chronic scarring. No evidence of bronchiectasis or acute infiltrates. Bronchial tree intact.. Bony structures showing good alignment of the thoracic spine with only mild degenerative changes. No bony destructive or sclerotic process. IMPRESSION: Limited Study. Cardiomegaly with trace pericardial effusion. Tortuosity of the aorta distally at the hiatus. Descending aorta 3.8 cm in diameter. Perfusion characteristics not allowed due to lack of intravenous contrast. Dissection cannot be excluded. HISTORY: Abdominal aortic aneurysm. CT abdomen and pelvis, unenhanced. Reformatted sagittal and coronal images. COMPARISON: None Automated exposure control, iterative reconstruction technique, and/or adjustment of mA and/or kV according to patient's size was utilized [facility] NAME: ROSALIND LOCKHART [address] [place] PHYS: Arnul[place] [address] : 1955 AGE: 65 SEX: F LOC: ZSudeepCCL PHONE #: [phone] EXAM DATE: 06/01/2020 STATUS: REG [facility] FAX #: [phone] RAD #: D/C DT PAGE 1 Signed Report (CONTINUED) Patient Name: ROSALIND LOCKHART Unit No: [id number] EXAMS: CPT CODE: [id number] CT ABDOMEN W/O CONTRAST 15168 (Continued) for optimum radiation dose reduction. Neither intravenous nor oral contrast is requested for the exam. Significant pathology may be obscured. The study continues into the abdomen with the aorta have a midline appearance, maximum diameter at the infrarenal level 3 cm borderline for aneurysm. Atherosclerotic calcification seen affecting the aortoiliac bifurcation vessels prominently, SMA and renal arteries affected as well proximally. No findings of abnormal density within the liver with size upper normal. Gallbladder intact. Spleen normal in size containing multiple tiny granulomata. Excreted contrast seen from the kidneys with normal ureteral diameters. Stones could be obscured. No enhancing masses or obstruction. The bowel loops do not show evidence of fluid accumulation for obstruction. Stool content appropriate. The study of the pelvis shows contrast accumulating in the bladder with normal appearance. Uterus and adnexal areas intact. No free fluid evident. Bony structures with degenerative changes seen in the spine mainly L5-S1 with facet arthrosis at the last 2 levels. Borderline spinal stenosis as well. IMPRESSION: Limited Study. 3 cm maximum aortic diameter distally above the aortoiliac bifurcation, borderline for aneurysm. No acute findings in the abdomen or pelvis. No free air or ascites. Good excretion by the kidneys with good filling of the bladder. Degenerative spine changes especially lower levels with severe changes at L5-S1, spinal stenosis produced at L4-5, L3-4. Location: [facility] at 1753 Reported and signed by: JOSE RAUL ANNE M.D. CC: Arnulfo Rivera MD Technologist: DEANNA BERMUDEZ RT(R)(CT)(MR); CTDI: DLP: Trnscrpt: 06/01/2020 (1753) [id number] [facility] NAME: ROSALIND LOCKHART [address] [place] PHYS: [place] [address] : 1955 AGE: 65 SEX: F LOC: CEE PHONE #: [phone] EXAM DATE: 06/01/2020 STATUS: REG [facility] FAX #: [phone] RAD #: D/C DT PAGE 2 Signed Report Patient Name: ROSALIND LOCKHART Unit No: [id number] EXAMS: CPT CODE: [id number] CT ABDOMEN W/O CONTRAST 53997 (Continued) Orig Print D/T: S: 06/01/2020 (1756) [facility] NAME: ROSALIND LOCKHART [address] [place] PHYS: [place] [address] : 1955 AGE: 65 SEX: F [facility]: [facility] PHONE #: [phone] EXAM DATE: 06/01/2020 STATUS: REG [facility] FAX #: [phone] RAD #: D/C DT PAGE 3 Signed Report - CT CHEST W/O 2020-06-01 CONTRAST 17:53:00 [facility] : 1955 Sex: F Patient Name: ROSALIND LOCKHART Unit No: [id number] EXAMS: CPT CODE: [id number] CT CHEST W/O CONTRAST 72386 HISTORY: TAA, coronary artery disease. CT the chest, unenhanced. Reformatted sagittal and coronal images. COMPARISON: None Automated exposure control, iterative reconstruction technique, and/or adjustment of mA and/or kV according to patient's size was utilized for optimum radiation dose reduction. Neither intravenous nor oral contrast is requested for the exam. Significant pathology may be obscured. The aorta with normal diameter present, at the ascending level. Aortic arch 3.7 cm, descending aorta at 3.8 cm. No findings of aneurysm. Only minimal atherosclerotic calcifications are seen. A very prominent band occurs in the aorta at the aortic hiatus where it crosses midline towards the left and then swings back to the midline. Coronary arteries with fairly mild calcifications. Cardiomegaly is present. Trace pericardial effusion seen thickness at 3.2 mm. The mediastinum with a densely calcified right mediastinal nodes from old granulomatous exposure, the granuloma in the superior aspect of the right lower lobe. Chest wall structures are intact. No axillary, pathologic hilar or mediastinal adenopathy.The lung window settings with well-inflated and clear lungs. Some minimal atelectasis seen in the left upper lobe paralleling the fissure line and at the lower lobes bilaterally possibly some mild chronic scarring. No evidence of bronchiectasis or acute infiltrates. Bronchial tree intact.. Bony structures showing good alignment of the thoracic spine with only mild degenerative changes. No bony destructive or sclerotic process. IMPRESSION: Limited Study. Cardiomegaly with trace pericardial effusion. Tortuosity of the aorta distally at the hiatus. Descending aorta 3.8 cm in diameter. Perfusion characteristics not allowed due to lack of intravenous contrast. Dissection cannot be excluded. HISTORY: Abdominal aortic aneurysm. CT abdomen and pelvis, unenhanced. Reformatted sagittal and coronal images. COMPARISON: None Automated exposure control, iterative reconstruction technique, and/or adjustment of mA and/or kV according to patient's size was utilized [facility] NAME: ROSALIND LOCKHART [address] [address] [place] PHYS: [place] [address] : 1955 AGE: 65 SEX: F LOC: CEE PHONE #: [phone] EXAM DATE: 06/01/2020 STATUS: [facility] FAX #: [phone] RAD #: D/C DT PAGE 1 Signed Report (CONTINUED) Patient Name: ROSALIND LOCKHART Unit No: [id number] EXAMS: CPT CODE: [id number] CT CHEST W/O CONTRAST 91279 (Continued) for optimum radiation dose reduction. Neither intravenous nor oral contrast is requested for the exam. Significant pathology may be obscured. The study continues into the abdomen with the aorta have a midline appearance, maximum diameter at the infrarenal level 3 cm borderline for aneurysm. Atherosclerotic calcification seen affecting the aortoiliac bifurcation vessels prominently, SMA and renal arteries affected as well proximally. No findings of abnormal density within the liver with size upper normal. Gallbladder intact. Spleen normal in size containing multiple tiny granulomata. Excreted contrast seen from the kidneys with normal ureteral diameters. Stones could be obscured. No enhancing masses or obstruction. The bowel loops do not show evidence of fluid accumulation for obstruction. Stool content appropriate. The study of the pelvis shows contrast accumulating in the bladder with normal appearance. Uterus and adnexal areas intact. No free fluid evident. Bony structures with degenerative changes seen in the spine mainly L5-S1 with facet arthrosis at the last 2 levels. Borderline spinal stenosis as well. IMPRESSION: Limited Study. 3 cm maximum aortic diameter distally above the aortoiliac bifurcation, borderline for aneurysm. No acute findings in the abdomen or pelvis. No free air or ascites. Good excretion by the kidneys with good filling of the bladder. Degenerative spine changes especially lower levels with severe changes at L5-S1, spinal stenosis produced at L4-5, L3-4. Location: [facility] at 1753 Reported and signed by: JOSE RAUL ANNE M.D. CC: Arnulfo Rivera MD Technologist: DEANNA SMALLWOOD(R)(CT)(MR); CTDI: DLP: Trnscrpt: 06/01/2020 (1753) [email or web address] [facility] NAME: ROSALIND LOCKHART [address] [place] PHYS: [place] [address] : 1955 AGE: 65 SEX: F LOC: RupertoCCL PHONE #: [phone] EXAM DATE: 06/01/2020 STATUS: REG [facility] FAX #: [phone] RAD #: D/C DT PAGE 2 Signed Report Patient Name: ROSALIND LOCKHART Unit No: [id number] EXAMS: CPT CODE: [id number] CT CHEST W/O CONTRAST 55920 (Continued) Orig Print D/T: S: 06/01/2020 (1756) [facility] NAME: ROSALIND LOCKHART [address] [place] PHYS: [place] [address] : 1955 AGE: 65 SEX: F LOC: CEE PHONE #: [phone] EXAM DATE: 06/01/2020 STATUS: REG [facility] FAX #: [phone] RAD #: D/C DT PAGE 3 Signed Report BASIC METABOLIC PANEL 2020-06-01 10:15:00 Test Item Value Reference Range Interpretation Comme nts SODIUM (test code = NA) 141 MMOL/L 137-145 N POTASSIUM (test code = K) 3.2 MMOL/L 3.5-5.1 L CHLORIDE (test code = CL) 99 MMOL/L 98-107 N CARBON DIOXIDE (test code = CO2) 32 MMOL/L 22-30 H ANION GAP (test code = GAP) 13 MMOL/L 14-24 L GLUCOSE (test code = GLU) 109 MG/DL 74-106 H BLOOD UREA NITROGEN (test code = 16 MG/DL 7-17 N BUN) GLOMERULAR FILTRATION RATE (test > 60 Reporting units: ml/min/1.73 code = GFR) m2 (Modified RD Formula)Referen ce Range: > or = 60 ml/min/1.7 3 m2 CREATININE (test code = CREAT) 1.00 MG/DL 0.52-1.04 N CALCIUM (test code = CA) 8.3 MG/DL 8.4-10.2 L LIPID PROFILE (CORONARY RISK)2020-06-01 10:15:00 Test Item Value Reference Range Interpretation Comments TRIGLYCERIDES (test 75 MG/DL TRIGLYCE RIDES code = TRIG) REFERENCE RANGE:Normal: < 150 mg/dLBorderline High: 150-199 mg/dLHi gh: 200-499 mg/dLVe ry High: >=500 mg/ dL CHOLESTEROL (test code 208 MG/DL <200 = CHOL) HDL CHOLESTEROL (test 46 MG/DL 40-59 N code = HDL) LIPOPROTEIN LDL (test 125 MG/DL 0-99 H OPTIM AL.........<100 code = LDL) mg/dLNEAR OPTIMAL/ABOVE OPTIMAL........ .100-12 9 mg/dL BORDER LINE HIGH.........13 0-159 mg/dL HIGH.........16 0-189 mg/dL VERY HIGH.........>/ = 190 mg/dL [id number] 10:15:00 Test Item Value Reference Range Interpretation Comments MAGNESIUM (test code = MAG) 1.1 MG/DL 1.6-2.3 L BASIC METABOLIC [id number] 10:06:00 Test Item Value Reference Range Interpretation Comments SODIUM (test code = 141 MMOL/L 137-145 N NA) POTASSIUM (test code = 3.2 MMOL/L 3.5-5.1 L K) CHLORIDE (test code = 99 MMOL/L 98-107 N CL) CARBON DIOXIDE (test 32 MMOL/L 22-30 H code = CO2) ANION GAP (test code = 13 MMOL/L 14-24 L GAP) GLUCOSE (test code = 109 MG/DL 74-106 H GLU) BLOOD UREA NITROGEN 16 MG/DL 7-17 N (test code = BUN) GLOMERULAR FILTRATION > 60 Report ing units: RATE (test code = GFR) ml/mi n/1.73 m2 (Modified MDRD Formula)Referen ce Range: > or = 6 0 ml/min/1.73 m2 CREATININE (test code 1.00 MG/DL 0.52-1.04 N = CREAT) CALCIUM (test code = 8.3 MG/DL 8.4-10.2 L CA) LIPID PROFILE (CORONARY RISK)2020-06-01 10:06:00 Test Item Value Reference Range Interpretation Comments TRIGLYCERIDES (test 75 MG/DL TRIGLYCE RIDES code = TRIG) REFERENCE RANGE:Normal: < 150 mg/dLBorderline High: 150-199 mg/dLHi gh: 200-499 mg/dLVe ry High: >=500 mg/ dL CHOLESTEROL (test code 208 MG/DL <200 = CHOL) HDL CHOLESTEROL (test 46 MG/DL 40-59 N code = HDL) LIPOPROTEIN LDL (test MG/DL 0-99 code = LDL) [id number] 10:06:00 Test Item Value Reference Range Interpretation Comments MAGNESIUM (test code = MAG) 1.1 MG/DL 1.6-2.3 L COVID 19 Asymptomatic IH [id number] 10:02:00 Test Item Value Reference Range Interpretation Comments COVID 19 NEGATIVE Negative "Negative resul ts from Asymptomatic IH AG patients with symptom (test code = onset beyondfiv e days, COVNONPUIAG) should be treat ed as presumptive, andconfirmation with a molecular assay , if necessary forpa tient management may be performed. Nega tive results do notr ule out COVID-19 and sh ould not be used as the sole basisfor treatm ent or patient managem ent decisions, includinginfect ion control decisio ns. Negative result s should beconsidered in the context of a pa tients recent exposure s,history, and the presenc e of clinical signs and symptomsconsist ent with COVID-19.This t est detects both vi able andnon-viable S ARS-CoV and SARS CoV-2. Test performance dep endson the amount of virus (antigen) in the sample." PROTHROMBIN [id number] 09:58:00 Test Item Value Reference Range Interpretation Comments PROTHROMBIN TIME 14.7 SECONDS 9.4-12.5 H PATIENT (test code = PTP) INTERNATIONAL NORMAL 1.3 The INR is to be RATIO (test code = used only for INR) monitoring oral anticoagulantth erap y. INDICATION INR VALUE ---- ---- ---- -------1. Prophylaxis, de ep venous thrombos is, including high risk surgery. 2.0 - 3.0 2. Prophylaxis, deep venous thrombosis, hip surgery, treatm ent for deep venous thrombosis or pulmonary prevention of systemic emboli sm in patients wit h valvular heart disease, atrial fibrillation, tissue heart va lve, or acute myocar dial infarction. 2.0 - 3.0 3. Cake Former al prosthesis hear t valves, recurre nt systemic emboli sm. 3.0 - 4.5 PTT [id number] 09:58:00 Test Item Value Reference Range Interpretation Comments PTT ACTIVATED (test code = APTT) 34.1 SECONDS 25.1-36.5 N CBC W/AUTO [id number] 09:44:00 Test Item Value Reference Range Interpretation Comments WHITE BLOOD CELL (test code = 6.3 K/MM3 3.8-9.8 N WBC) RED BLOOD CELL (test code = 4.41 M/MM3 3.58-4.97 N RBC) HEMOGLOBIN (test code = HGB) 12.3 G/DL 11.2-14.9 N HEMATOCRIT (test code = HCT) 41.0 % 33.2-43.5 N MEAN CELL VOLUME (test code = 93 fL 80.7-99.1 N MCV) MEAN CELL HGB (test code = MCH) 27.9 pg 27.0-34.1 N MEAN CELL HGB CONCETRATION 30.0 % 32.2-35.7 L (test code = MCHC) RED CELL DISTRIBUTION WIDTH 18.6 % 12.1-15.2 H (test code = RDW) PLATELET COUNT (test code = 216 K/MM3 129-368 N PLT) MEAN PLATELET VOLUME (test code 12.6 fl 7.4-10.4 H = MPV) NEUTROPHIL % (test code = NT%) 77.7 % 43-75 H IMMATURE GRANULOCYTE % (test 0.3 % 0.0-2.0 N code = IG%) LYMPHOCYTE % (test code = LY%) 15.3 % 14-44 N MONOCYTE % (test code = MO%) 6.5 % 4-13 N EOSINOPHIL % (test code = EO%) 0.2 % 0-6 N BASOPHIL % (test code = BA%) 0 % 0-2 N NUCLEATED RBC % (test code = 0.0 % 0-1.0 N NRBC%) NEUTROPHIL # (test code = NT#) 4.91 K/mm3 2.0-7.6 N IMMATURE GRANULOCYTE # (test 0.02 x10 3/uL 0-0.03 N code = IG#) LYMPHOCYTE # (test code = LY#) 0.97 K/mm3 1.0-3.8 L MONOCYTE # (test code = MO#) 0.41 K/mm3 0.1-0.8 N EOSINOPHIL # (test code = EO#) 0.01 K/mm3 0.0-0.2 N BASOPHIL # (test code = BA#) 0 K/mm3 0.0-0.2 N NUCLEATED RBC # (test code = 0.00 K/mm3 0.0-0.1 N NRBC#)
[2022-03-10 17:04] LABS: Arterial Blood Carboxyhemoglob 3.8 % (0-1.5); Blood Gas Oxyhemoglobin 92.3 % (94-97); Blood O2 Saturation 97.2 % (92-98.5)
[2022-03-10] MEDS ORDERED: IPRATROPIUM BROM 0.5MG/2.5ML ONE (17:05)
[2022-03-10 17:47] LABS: Hematocrit 30.9 % (36.0-45.0); Lymphocytes % 19.9 % (15.3-44.8); MCV 89.6 fL (80-100); MPV 8.8 fL (7.6-11.3); RBC Red Blood Cell Count 3.45 M/uL (3.86-4.86)
[2022-03-10 17:49] LABS: Protime INR 1.12
[2022-03-10] MEDS ORDERED: METHYLPREDNISOLONE 125 MG INJ ONE (17:59)
[2022-03-10 18:05] LABS: Albumin 3.3 g/dL (3.4-5.0); Bilirubin Direct 0.1 mg/dL (0-0.2); Bilirubin Total 0.4 mg/dL (0.2-1.0); Magnesium 2.1 mg/dL (1.8-2.4); Potassium 3.6 mmol/L (3.5-5.1); Protein, Total 7.8 g/dL (6.4-8.2)
--- NOTE | 2022-03-10 18:06 | RAD REPORT ---
EXAM DESCRIPTION: RAD - Chest Single View - 03/10/2022 5:58 pm CLINICAL HISTORY: SOB COMPARISON: Chest Single View dated 08/10/2019; Chest Single View dated 05/29/2019; Chest Single View dated 05/27/2019; Chest Single View dated 05/25/2019 FINDINGS: Lines: None. Lungs: Vascular engorgement. Pleural: No significant pleural effusions or pneumothorax. Cardiac: Cardiomegaly. Mediastinum: Within normal limits. Bones: No acute fractures. Other: None IMPRESSION: Mild congestive heart failure.
[2022-03-10 18:14] LABS: Troponin High Sensitivity 2669.7 pg/mL (<58.9)
--- NOTE | 2022-03-10 18:38 | RAD REPORT ---
EXAM DESCRIPTION: US - Extremity Venous Uni Ltd - 03/10/2022 6:28 pm CLINICAL HISTORY: Swelling COMPARISON: None. TECHNIQUE: Real-time sonographic evaluation of the left lower extremity deep venous system was perfo rmed. FINDINGS: Normal compressibility, flow augmentation, phasic flow and spontaneous flow is identified in the left lower extremity deep venous system. No intraluminal filling defects seen. IMPRESSION: No DVT in the left lower extremity.
--- NOTE | 2022-03-10 19:30 | RAD REPORT ---
EXAM DESCRIPTION: CT - Chest For Pe Angio - 03/10/2022 7:18 pm CLINICAL HISTORY: shortness of breath COMPARISON: Chest For Pe Angio dated 04/28/2017; CHEST SINGLE VIEW dated 10/19/2010 TECHNIQUE: Dynamically enhanced axial 3 mm thick images of the chest were obtained during administra tion of <100> mL Isovue 370 IV contrast. Coronal and oblique reconstruction images were generated and reviewed. Exam utilizes a protocol for optimal evaluation of pulmonary arterial tree. Maximum intensity projections 3D imaging was utilized All CT scans are performed using dose optimization technique as appropriate and may include automated exposure control or mA/KV adjustment according to patient size. FINDINGS: Chest Wall: No suspicious thyroid nodules or pathologic lymphadenopathy. Lungs: Scattered areas of atelectasis and/or scarring. No consolidative airspace disease. Pleura: No significant effusions or pneumothorax. Mediastinum/ike: No pathologic lymphadenopathy. Pulmonary arteries/Aorta: No filling defect identified. No aortic aneurysm. Markedly enlarged main pu lmonary artery suggesting pulmonary artery hypertension. Heart: No significant pericardial effusion. Increasing severe cardiomegaly. Upper abdomen: Cirrhotic liver morphology. Bones: No acute abnormality. IMPRESSION: Negative for pulmonary embolism. Marked enlargement of the main pulmonary artery would s uggest pulmonary artery hypertension. Increasing cardiomegaly noted since the comparison chest CT fro m 04/28/2017.
--- NOTE | 2022-03-10 19:31 | RAD REPORT ---
EXAM DESCRIPTION: CT - Head Brain Wo Cont - 03/10/2022 7:18 pm CLINICAL HISTORY: confusion COMPARISON: No comparisons TECHNIQUE: All CT scans are performed using dose optimization technique as appropriate and may inclu de automated exposure control or mA/KV adjustment according to patient size. FINDINGS: No intracranial hemorrhage, hydrocephalus or extra-axial fluid collection.No areas of brai n edema or evidence of midline shift. The paranasal sinuses and mastoids are clear. The calvarium is intact. IMPRESSION: No acute intracranial abnormality.
[2022-03-10] MEDS ORDERED: FUROSEMIDE 20 MG/ 2ML VIAL ONE (19:47)
[2022-03-10] MEDS ORDERED: ASPIRIN 81 MG CHEWABLE TABLET ONE (19:47)
--- NOTE | 2022-03-10 21:05 | EDPHYS ---
Physician Documentation [facility] Name: Mellisa Patterson Age: 67 yrs Sex: Female : 1955 Arrival Date: 03/10/2022 Time: 15:09 Bed 18 Private MD: Bull Jha ED Physician Jeffrey Nolasco HPI: 03/10 17:00 This 67 yrs old Black Female presents to ER via Wheelchair with complaints of Leg cp Swelling, Doesnt Feel Well. 17:00 The patient has shortness of breath at rest. Onset: The symptoms/episode began/occurred cp 3 week(s) ago. 17:00 Duration: The symptoms are continuous, and are steadily getting worse. The patient's cp shortness of breath is aggravated by light activity, talking. Associated signs and symptoms: Pertinent positives: non-productive cough, Pertinent negatives: chest pain, diaphoresis, fever, vomiting. Severity of symptoms: in the emergency department the symptoms are unchanged despite home interventions. Patient reports she was sent to ED by DR Jj after being seen today at wound care clinic for chronic wound to left ankle. Historical: - Allergies: 15:38 insect venom; tw2 - PMHx: 15:38 Atrial Fib; Bronchitis; Gout; venous insufficiency; Hypertension; CHF; wounds; tw2 15:39 Asthma; tw2 - Immunization history:: Adult Immunizations Client reports having NOT received the Covid vaccine. - Social history:: Smoking status: Smoking status: Patient reports the use of cigarette tobacco products, smokes one-half pack cigarettes per day. ROS: 17:05 Constitutional: Negative for body aches, chills, fever, poor PO intake. cp 17:05 Eyes: Negative for injury, pain, redness, and discharge. cp 17:05 ENT: Negative for drainage from ear(s), ear pain, sore throat, difficulty swallowing, difficulty handling secretions. 17:05 Cardiovascular: Negative for chest pain, palpitations. 17:05 Respiratory: Positive for cough, with no reported sputum, dyspnea on exertion, shortness of breath, at rest. 17:05 Abdomen/GI: Negative for abdominal pain, vomiting, diarrhea, constipation, black/tarry stool, rectal bleeding. 17:05 Back: Negative for pain at rest, pain with movement. 17:05 : Negative for urinary symptoms. 17:05 Skin: Negative for cellulitis, rash. 17:05 Neuro: Negative for altered mental status, headache, syncope, weakness. 17:05 All other systems are negative. Exam: 17:10 Constitutional: The patient appears in no acute distress, alert, awake, cp non-diaphoretic, non-toxic, well developed, well nourished, obese. 17:10 Head/Face: Normocephalic, atraumatic. cp 17:10 Eyes: Periorbital structures: appear normal, Conjunctiva: normal, no exudate, no injection, Sclera: no appreciated abnormality, Lids and lashes: appear normal, bilaterally. 17:10 ENT: External ear(s): are unremarkable, Nose: is normal, Mouth: Lips: dry, Oral mucosa: dry, Posterior pharynx: Airway: no evidence of obstruction, patent, erythema, is not appreciated, exudate, is not appreciated. 17:10 Neck: ROM/movement: is normal, is supple, without pain, no range of motions limitations, no meningismus. 17:10 Chest/axilla: Inspection: normal, Palpation: is normal, no crepitus, no tenderness. 17:10 Cardiovascular: Rate: bradycardic, Rhythm: regular, Pulses: weak left dorsalis pedis pulse, JVD: is not appreciated. 17:10 Respiratory: the patient does not display signs of respiratory distress, Respirations: labored breathing, that is mild, intercostal retractions, are absent, Breath sounds: decreased breath sounds, that are moderate, are located in both bases, stridor, is not appreciated, wheezing: that is mild, bibasilar. 17:10 Abdomen/GI: Inspection: obese Bowel sounds: active, all quadrants, Palpation: abdomen is soft and non-tender, in all quadrants. 17:10 Back: pain, is absent, ROM is normal. 17:10 Skin: chronic wound noted left ankle with scant colored drainage, no erythema noted. 17:10 Neuro: Orientation: to person, place \T\ time. Mentation: able to follow commands, slow to respond, Motor: moves all fours, strength is normal, Sensation: is normal. 17:14 ECG was reviewed by the Attending Physician. cp Vital Signs: 15:34 BP 114 / 71; Pulse 43; Resp 19; Temp 97.7(O); Pulse Ox 100% on 2 lpm NC; tw2 18:12 BP 142 / 92; Pulse 73; Resp 20; Pulse Ox 96% on BiPAP; jh5 19:32 BP 140 / 96; Pulse 44; Resp 20; Pulse Ox 96% on BiPAP; kl 21:52 BP 136 / 86; Pulse 44; Resp 18; Pulse Ox 96% on BiPAP; kl MDM: 16:14 Patient medically screened. cp 17:00 Differential diagnosis: CHF exacerbation, Chronic Obstructive Pulmonary Disease cp Myocardial Infarction pneumonia, pulmonary edema, Pulmonary Embolism Sepsis. 19:35 Data reviewed: vital signs, nurses notes, lab test result(s), EKG, radiologic studies, cp CT scan, plain films, ultrasound. 19:35 Test interpretation: by ED physician or midlevel provider: ECG, plain radiologic cp studies. 19:35 Antibiotic administration: Not indicated, the patient does not have an appreciated cp infiltrate. Counseling: I had a detailed discussion with the patient and/or guardian regarding: the historical points, exam findings, and any diagnostic results supporting the discharge/admit diagnosis, lab results, radiology results, the need for further work-up and treatment in the hospital. 19:45 Physician consultation: Dea PRASAD was contacted at 19:45, regarding admission, to the telemetry unit. patient's condition, and will see patient in ED, shortly. 03/10 16:42 Order name: Basic Metabolic Panel; Complete Time: 18:22 cp 03/10 18:22 Interpretation: Normal except: BUN 21; GFR 56. 03/10 16:42 Order name: CBC with Diff; Complete Time: 17:56 cp 03/10 17:56 Interpretation: Normal except: RBC 3.45; HGB 9.7; HCT 30.9; MCV 89.6; MCHC 31.3; RDW cp 17.6; MN% 12.5. 03/10 16:42 Order name: LFT's; Complete Time: 18:22 cp 03/10 18:22 Interpretation: Normal except: AST 14; ALB 3.3; GLOB 4.5; A/G 0.7. 03/10 16:42 Order name: Magnesium; Complete Time: 18:22 cp 03/10 16:42 Order name: NT PRO-BNP; Complete Time: 18:22 cp 03/10 18:22 Interpretation: Abnormal: NT PRO-BNP 2981. cp 08/30 16:42 Order name: PT-INR; Complete Time: 17:56 cp 08/30 16:42 Order name: Troponin HS; Complete Time: 18:22 cp 08/30 18:22 Interpretation: Abnormal: Troponin HS 2669.7. cp 08/30 16:42 Order name: ABG; Complete Time: 17:56 cp 08/30 17:14 Order name: Lactate; Complete Time: 18:22 cp 08/30 17:14 Order name: Procalcitonin; Complete Time: 18:43 cp 08/30 17:14 Order name: Blood Culture Adult (2) cp /30 21:26 Order name: SARS RAPID; Complete Time: 22:16 cp 08/30 22:52 Order name: Urinalysis EDMS 03/10 22:52 Order name: Basic Metabolic Panel EDMS 03/10 22:52 Order name: Basic Metabolic Panel EDMS 03/10 22:52 Order name: Basic Metabolic Panel EDMS 03/10 22:52 Order name: Basic Metabolic Panel EDMS 03/10 22:52 Order name: CBC with Automated Diff EDMS 03/10 22:52 Order name: CBC with Automated Diff EDMS 03/10 22:52 Order name: CBC with Automated Diff EDMS 03/10 22:52 Order name: CBC with Automated Diff EDMS / 22:52 Order name: Lipid Profile EDMS 03/10 22:52 Order name: Lipid Profile EDMS 03/10 22:52 Order name: Magnesium EDMS 03/10 22:52 Order name: Magnesium EDMS 03/10 22:52 Order name: Phosphorus EDMS 03/10 22:52 Order name: Phosphorus EDMS 03/10 22:52 Order name: Thyroid Stimulating Hormone EDMS 03/10 22:52 Order name: Thyroid Stimulating Hormone EDMS 03/10 16:42 Order name: XRAY Chest (1 view); Complete Time: 18:22 cp 08/30 18:23 Interpretation: Report review. cp / 16:42 Order name: EKG; Complete Time: 16:43 cp /30 16:42 Order name: Cardiac monitoring; Complete Time: 16:54 cp 08/30 16:42 Order name: EKG - Nurse/Tech; Complete Time: 16:54 cp 30 16:42 Order name: IV Saline Lock; Complete Time: 16:54 cp 08 16:42 Order name: Labs collected and sent; Complete Time: 16:54 cp 03/10 16:42 Order name: O2 Per Protocol; Complete Time: 16:54 cp 03/10 16:42 Order name: O2 Sat Monitoring; Complete Time: 16:54 cp 03/10 17:18 Order name: CT Head Brain wo Cont; Complete Time: 19:32 cp 03/10 19:32 Interpretation: Report reviewed. 03/10 17:18 Order name: CT Chest For PE Angio; Complete Time: 19:32 cp 03/10 17:18 Order name: US Extremity Venous Unilateral Ltd; Complete Time: 18:43 cp 03/10 18:43 Interpretation: Report reviewed. 03/10 22:52 Order name: CONS Physician Consult [facility] 03/10 22:52 Order name: Physical Therapy Consult [facility] 03/10 22:52 Order name: NPO EDAK 03/10 22:52 Order name: Troponin High Sensitivity [facility] 03/10 22:52 Order name: Troponin High Sensitivity; Complete Time: 00:08 [facility] 03/10 22:52 Order name: Troponin High Sensitivity [facility] 03/10 22:52 Order name: CKMB Creatine Kinase MB; Complete Time: 00:08 [facility] 03/10 22:52 Order name: Creatine Phosphokinase; Complete Time: 00:08 [facility] 03/10 22:52 Order name: Echo with Doppler EDAK EC:14 Rate is 45 beats/min. Rhythm is regular. OH interval is prolonged at 254 msec. QRS cp interval is prolonged at 106 msec. QT interval is prolonged at 580 msec. T waves are Inverted. Interpreted by me. Reviewed by me. Administered Medications: 17:16 Drug: Albuterol - atroVENT (ipratropium) (3:1) (2.5 mg - 0.5 mg) 3 ml Route: Nebulizer; jh5 17:51 Drug: SOLU-Medrol (methylPrednisoLONE) 125 mg Route: IVP; Site: left antecubital; jh5 19:47 Drug: Aspirin Chewable Tablet 324 mg Route: PO; kl 20:19 Follow up: Response: No adverse reaction kl 19:47 Drug: Lasix (furosemide) 20 mg Route: IVP; Site: right antecubital; kl 20:18 Follow up: Response: No adverse reaction Disposition: 18:58 Co-signature as Attending Physician, David Ferrell DO I was present in the emergency ms3 department and available for consultation in the care of this patient.. Disposition Summary: 03/10/22 21:04 Hospitalization Ordered Hospitalization Status: Inpatient Admission cp Provider: Charles Smith cp Condition: Stable cp Problem: an acute exacerbation cp Symptoms: have improved cp Bed/Room Type: Standard cp Location: Telemetry/MedSurg (Inpatient)(03/11/22 13:05) bd Room Assignment: 403(03/11/22 13:05) bd Diagnosis - Unspecified combined systolic (congestive) and diastolic (congestive) heart failure cp - Acute and chronic respiratory failure with hypercapnia cp - Subsequent non-ST elevation (NSTEMI) myocardial infarction cp Forms: - Medication Reconciliation Form cp - SBAR form cp Signatures: Dispatcher [employer] EDMS Leeanne Chong Kimberly, RN RN Leighann Eldridge RN Jeffrey Morales PA PA cp Nancy Montejo RN RN tw2 David Ferrell DO DO ms3 Aleida Betancourt RN RN jh5 Dea Rosado PA PA sb3 Corrections: (The following items were deleted from the chart) 21:23 21:04 Telemetry/MedSurg (Inpatient) cp mw 21:23 21:04 cp mw 22:51 16:43 UA MICROSCOPIC+U.LAB.BRZ ordered. EDAK EDMS 03/11 13:05 03/10 21:23 BR ER HOLD mw bd 03/11 13:05 03/10 21:23 ERHOLD- mw bd
--- NOTE | 2022-03-10 21:05 | ER ---
Nurse's Notes [facility] Name: Mellisa Patterson Age: 67 yrs Sex: Female : 1955 Arrival Date: 03/10/2022 Time: 15:09 Bed 18 Private MD: Bull Jha Diagnosis: Unspecified combined systolic (congestive) and diastolic (congestive) heart failure;Acute and chronic respiratory failure with hypercapnia;Subsequent non-ST elevation (NSTEMI) myocardial infarction Presentation: 03/10 15:34 Chief complaint: Patient states: im a wound care pt and dr. pierson encouraged an ER tw2 visit before i left. i am swollen and i look bad. i feel short of breath. gasping while i am speaking. dr. pierson says gaps in my speech like missing words. i call it just cant catch my breath that has been going on a couple of weeks ago. Coronavirus screen: shortness of breath, Client presents with at least one sign or symptom that may indicate coronavirus-19. Standard/surgical mask placed on the client. Provider contacted for isolation considerations. Ebola Screen: Patient denies travel to an Ebola-affected area in the 21 days before illness onset. Initial Sepsis Screen: Does the patient meet any 2 criteria? No. Patient's initial sepsis screen is negative. Does the patient have a suspected source of infection? No. Patient's initial sepsis screen is negative. Risk Assessment: Do you want to hurt yourself or someone else? Patient reports no desire to harm self or others. Note provider daphne bach in triage room at this time. Onset of symptoms was March 10, 2022. 15:34 Method Of Arrival: Wheelchair tw2 15:34 Acuity: JESI 3 tw2 15:39 Chief complaint: Patient states: i am a bad pt and i dont use my oxgen as i should. tw2 Triage Assessment: 15:39 General: Appears in no apparent distress. uncomfortable, obese, Behavior is calm, tw2 cooperative, appropriate for age. Pain: Complains of pain in left leg. Historical: - Allergies: 15:38 insect venom; tw2 - PMHx: 15:38 Atrial Fib; Bronchitis; Gout; venous insufficiency; Hypertension; CHF; wounds; tw2 15:39 Asthma; tw2 - Immunization history:: Adult Immunizations Client reports having NOT received the Covid vaccine. - Social history:: Smoking status: Smoking status: Patient reports the use of cigarette tobacco products, smokes one-half pack cigarettes per day. Screenin:40 Abuse screen: Denies threats or abuse. Nutritional screening: No deficits noted. tw2 Tuberculosis screening: No symptoms or risk factors identified. Fall Risk Secondary diagnosis (15 points) impaired mobility. Assessment: 19:30 General: Appears distressed, obese, well groomed, Behavior is calm, cooperative. Pain: kl Denies pain. Neuro: No deficits noted. Level of Consciousness is awake, alert, obeys commands. Cardiovascular: Heart tones S1 S2 Capillary refill is > 3 seconds Rhythm is sinus bradycardia with unifocal PVCs. Respiratory: Airway is patent Respiratory effort is labored, Patient placed on BiPAP: Breath sounds are diminished bilaterally. GI: No deficits noted. No signs and/or symptoms were reported involving the gastrointestinal system. : No deficits noted. No signs and/or symptoms were reported regarding the genitourinary system. Derm: Wound noted left leg Other: swelling noted to left lower extremity. 21:00 Reassessment: Patient appears in no apparent distress at this time. Patient and/or kl family updated on plan of care and expected duration. Pain level reassessed. Patient is alert, oriented x 3, equal unlabored respirations, skin warm/dry/pink. Patient states feeling better. Patient states symptoms have improved. Vital Signs: 15:34 BP 114 / 71; Pulse 43; Resp 19; Temp 97.7(O); Pulse Ox 100% on 2 lpm NC; tw2 18:12 BP 142 / 92; Pulse 73; Resp 20; Pulse Ox 96% on BiPAP; jh5 19:32 BP 140 / 96; Pulse 44; Resp 20; Pulse Ox 96% on BiPAP; kl 21:52 BP 136 / 86; Pulse 44; Resp 18; Pulse Ox 96% on BiPAP; ED Course: 15:09 Patient arrived in ED. rg4 15:09 Bull Jha DO is Private Physician. rg4 15:10 Jeffrey Young PA is PHCP. cp 15:10 David Ferrell DO is Attending Physician. cp 15:34 Arm band placed on. tw2 15:38 Triage completed. tw2 16:19 Aleida Betancourt, RN is Primary Nurse. jh5 16:19 Patient has correct armband on for positive identification. jh5 16:19 No provider procedures requiring assistance completed. jh5 18:01 XRAY Chest (1 view) In Process Unspecified. EDMS 18:30 US Extremity Venous Unilateral Ltd In Process Unspecified. EDMS 19:20 CT Head Brain wo Cont In Process Unspecified. EDMS 19:20 CT Chest For PE Angio In Process Unspecified. EDMS 19:33 Jeffrey Nolasco MD is Attending Physician. cp 21:01 Dea Rosado PA is Hospitalizing Provider. cp 21:01 Charles Smith MD is Hospitalizing Provider. cp 21:34 SARS RAPID Sent. ke1 21:52 Patient admitted, IV remains in place. Administered Medications: 17:16 Drug: Albuterol - atroVENT (ipratropium) (3:1) (2.5 mg - 0.5 mg) 3 ml Route: Nebulizer; [facility] 17:51 Drug: SOLU-Medrol (methylPrednisoLONE) 125 mg Route: IVP; Site: left antecubital; [facility] 19:47 Drug: Aspirin Chewable Tablet 324 mg Route: PO; kl 20:19 Follow up: Response: No adverse reaction 19:47 Drug: Lasix (furosemide) 20 mg Route: IVP; Site: right antecubital; kl 20:18 Follow up: Response: No adverse reaction Medication: 15:40 VIS not applicable for this client. tw2 Outcome: 21:04 Decision to Hospitalize by Provider. cp 21:51 Admitted to ER Hold. Please see [facility] for further documentation. 21:51 Condition: improved 21:51 Instructed on the need for admit, Demonstrated understanding of instructions. 03/11 14:57 Patient left the ED. jw7 Signatures: Dispatcher [employer] EDMS Ashely Melton RN RN Jeffrey Albert PA PA cp Wise, Tara RN RN tw2 Tika Morrison rg4 Aleida Betancourt, RN RN jh5 Petra Artis jw7 Ale Turcios RN RN ke1
[2022-03-10 22:02] LABS: SARS-CoV-2 Antigen Rapid Res Negative (Negative)
--- NOTE | 2022-03-10 22:45 | P.HP ---
Certification for Inpatient Patient admitted to: Inpatient With expected LOS: >2 Midnights Patient will require the following post-hospital care: None Practitioner: I am a practitioner with admitting privileges, knowledge of patient current condition, hospital course, and medical plan of care. Services: Services provided to patient in accordance with Admission requirements found in Title 42 Section 412.3 of the Code of Federal Regulations <Dea Rosado - Last Filed: 03/11/22 02:13> Patient History Date of Service: 03/11/22 Reason for admission: NSTEMI History of Present Illness: Patient is a 67-year-old female with history of chronic diastolic CHF, venous insufficiency, lymphedema, hypertension, A. fib on Xarelto, and COPD on home oxygen who presented to the ED with complaints of shortness of breath and lethargy. She was at wound care and was sent to ED for evaluation. Patient states that she is on home oxygen but is an outpatient and does not use it as she should. She is also noncompliant with her medications. She is a daily smoker. Upon arrival, heart rate was 43. ABG obtained- pH of 7.29, PCO2 58.2, bicarb 27. Labs significant for hemoglobin 9.7, BUN 21, troponin 2600, BNP 3000. Chest CT angio showed "Negative for pulmonary embolism. Marked enlargement of the main pulmonary artery would suggest pulmonary artery hypertension. Increasing cardiomegaly." Head CT negative. She was put on BiPAP and given 20 mg Lasix and became more alert. HR remained markos ranging from 40s-50s. She is admitted for further evaluation and treatment. Home medications list reviewed: Yes - Past Medical/Surgical History Diabetic: No -: Obstructive sleep apnea -: HTN -: CHF -: Gout -: Venous insufficiency -: Tobacco abuse -: Morbid obesity -: afib -: Skin graft -: x2 -: vein removal on R leg (2014) Psychosocial/ Personal History: The patient is recently . - Family History Mother -: Diabetes Notes: Alzheimer's Father -: Heart disease, Stroke - Social History Smoking Status: Current every day smoker Alcohol use: No CD- Drugs: No Caffeine use: No Place of Residence: Home <Elizabeth Rosadoia - Last Filed: 03/11/22 02:13> Date of Service: 03/11/22 <Charles Smith - Last Filed: 03/11/22 20:23> Allergies insect venom Adverse Reaction (Verified 05/25/19 00:45) Anaphylaxis Home Medications: Amiodarone HCl [Cordarone*] 200 mg PO DAILY 05/25/19 Aspirin [Aspir-Low] 81 mg PO DAILY 05/25/19 Cholecalciferol (Vitamin D3) [Vitamin D3] 1,000 unit PO BID 05/25/19 Clopidogrel Bisulfate [Plavix*] 75 mg PO DAILY 05/25/19 Magnesium Oxide [Magnesium] 250 mg PO DAILY 05/25/19 Pregabalin [Lyrica*] 50 mg PO DAILY 05/25/19 Rivaroxaban [Xarelto*] 15 mg PO DAILY 05/25/19 Triamcinolone 0.1% Oint [Kenalog 0.1% Ointment*] 1 appl TOP BID PRN 05/25/19 Zinc Sulfate [Zinc Sulfate*] 220 mg PO DAILY 05/25/19 allopurinoL [Zyloprim*] 300 mg PO DAILY 05/25/19 carvediloL [Coreg*] 25 mg PO TID 05/25/19 cloNIDine HCL [Catapres] 0.1 mg PO TID 05/25/19 Fluocinonide [Lidex] 1 appl TD PRN 08/10/19 Lidocaine 4% Patch [Lidoderm 5% Patch*] 1 patch TD PRN 08/10/19 Levalbuterol [Xopenex*] 0.63 mg NEB TID PRN #90 vial 08/14/19 predniSONE [Deltasone*] 10 mg PO DAILY #5 tab 08/14/19 Budesonide/Formoterol Fumarate [Symbicort 160-4.5 Mcg Inhaler] 2 puff IH BID #1 hfa.aer.ad 08/15/19 ALPRAZolam [Xanax*] 1 tab PO PRN PRN 03/11/22 Allopurinol 1 tab PO DAILY 03/11/22 Amitriptyline HCl 1 tab PO DAILY 03/11/22 Amlodipine Besylate [Norvasc] 1 tab PO DAILY 03/11/22 Bupropion HCl [Wellbutrin Xl] 1 tab PO DAILY 03/11/22 Cholecalciferol (Vitamin D3) [Vitamin D 1000 Iu Tab*] 1 tab PO DAILY 03/11/22 Collagenase [Santyl Ointment*] 250 units TOP DAILY 03/11/22 Ferrous Sulfate 1 tab PO DAILY 03/11/22 Hydralazine HCl 1 tab PO Q8HR PRN 03/11/22 Levalbuterol HCl [Xopenex] 1 aer IH Q6H PRN 03/11/22 Losartan Potassium 1 tab PO DAILY 03/11/22 Mupirocin Cream [Bactroban 2% Cream*] 1 dose TOP BID 03/11/22 hydrOXYzine pamoate [Hydroxyzine Pamoate] 1 tab PO Q8HR PRN 03/11/22 Physical Examination - Studies Laboratory Data (last 24 hrs) 03/10/22 17:28: PT 12.4, INR 1.12 03/10/22 17:28: WBC 5.00, Hgb 9.7 L, Hct 30.9 L, Plt Count 259 03/10/22 17:28: Sodium 140, Potassium 3.6, BUN 21 H, Creatinine 1.10, Glucose 101, Magnesium 2.1, Total Bilirubin 0.4, AST 14 L, ALT 17, Alkaline Phosphatase 77 <Dea Rosado - Last Filed: 03/11/22 02:13> Assessment and Plan - Problems (Diagnosis) (1) CHF (congestive heart failure) Current Visit: Yes Status: Chronic Qualifiers: Heart failure type: unspecified Heart failure chronicity: acute on chronic Qualified Code(s): I50.9 - Heart failure, unspecified (2) NSTEMI (non-ST elevated myocardial infarction) Current Visit: Yes Status: Acute (3) Lymphedema Current Visit: Yes Status: Chronic (4) Atrial fibrillation Current Visit: Yes Status: Chronic Qualifiers: Atrial fibrillation type: longstanding persistent Qualified Code(s): I48.11 - Longstanding persistent atrial fibrillation (5) COPD (chronic obstructive pulmonary disease) Current Visit: Yes Status: Chronic Qualifiers: COPD type: unspecified COPD Qualified Code(s): J44.9 - Chronic obstructive pulmonary disease, unspecified (6) HTN (hypertension) Current Visit: Yes Status: Chronic Qualifiers: Hypertension type: primary hypertension Qualified Code(s): I10 - Essential (primary) hypertension (7) Morbid obesity with BMI of 40.0-44.9, adult Current Visit: Yes Status: Chronic (8) Acute respiratory acidosis Current Visit: Yes Status: Acute (9) Non-pressure chronic ulcer of left ankle with fat layer exposed Current Visit: Yes Status: Chronic - Plan -Cardiology notified and has agreed to consult. Will keep patient NPO. -Troponin trending 2669 -> 2191. 1 more ordered for morning. Patient denies chest pain. CKMB 4.4. Therapeutic lovenox q12h. -Continue bipap and monitor O2 saturation. Pulmonology consulted. Repeat ABG. -HR markos in 40s-50s. Patient states she was recently put on a new medication, but is not sure the name. Hold beta blockers. Monitor on tele. -Last echo in 2019 showed normal EF, dilated left atrium, left ventricular hypertrophy, and impaired left ventricular relaxation. Echo ordered. -Patient is prescribed lasix 80 mg daily but does is non compliant. Received 20 IV in ED. -Wound care consulted for chronic ulcer of left ankle. Parviz has recommended, "Optimization, vitamins, compression, offloading and elevation and to Alternate between Santyl and Silvadene with calcium alginate Kerlix and Rickie" -Tobacco cessation counseling. -Monitor and replete electrolytes per protocol. -Reconcile and continue home medications. -Lovenox for VTE prophylaxis -Full code Discharge Plan: Home Plan to discharge in: Greater than 2 days - Advance Directives Does patient have a Living Will: No Does patient have a Durable POA for Healthcare: No - Code Status/Comfort Care Code Status Assessed: Yes (Full) Critical Care: No Time Spent Managing Pts Care (In Minutes): 50 <Dea Rosado - Last Filed: 03/11/22 02:13> Physician Review: Patient Assessed, Agree with Above Assessment and Plan <Charles Smith - Last Filed: 03/11/22 20:23>
[2022-03-11 00:02] LABS: CKMB Creatine Kinase MB 4.4 ng/mL (1.0-3.6)
[2022-03-11 00:03] LABS: Troponin High Sensitivity 2191.7 pg/mL (<58.9)
[2022-03-11 02:42] LABS: Absolute Lymphocytes (CBC) 0.4 K/uL (0.7-4.9); Hematocrit 30.6 % (36.0-45.0); Lymphocytes % 8.2 % (15.3-44.8); MCV 89.6 fL (80-100); MPV 8.8 fL (7.6-11.3); RBC Red Blood Cell Count 3.42 M/uL (3.86-4.86)
[2022-03-11 03:04] LABS: Magnesium 2.1 mg/dL (1.8-2.4); Phosphorus 4.5 mg/dL (2.5-4.9); Thyroid Stimulating Hormone 0.649 uIU/mL (0.360-3.740)
[2022-03-11 03:18] LABS: Troponin High Sensitivity 1966.9 pg/mL (<58.9)
[2022-03-11] MEDS: ALBUTEROL 2.5 MG/3 ML NEB SOL NEB SCH ×6 (04:10→23:30)
[2022-03-11] MEDS ORDERED: ALBUTEROL 2.5 MG/3 ML NEB SOL ONE ×2 (04:10→09:17)
[2022-03-11 06:18] VITALS: BMI 51.7
[2022-03-11] MEDS ORDERED: PNEUMOCOCCAL VACCINE 0.5 ML IMVAC ONE (07:00)
[2022-03-11] MEDS: ASPIRIN EC 81 MG TAB PO SCH (09:00)
[2022-03-11] MEDS: FUROSEMIDE 20 MG/ 2ML VIAL IV SCH ×2 (09:00→17:31)
[2022-03-11] MEDS: METOLAZONE 5 MG TABLET PO SCH (09:30)
[2022-03-11] MEDS ORDERED: ASPIRIN EC 81 MG TAB PO ONE (10:53)
[2022-03-11] MEDS ORDERED: FUROSEMIDE 20 MG TABLET ONE (10:53)
[2022-03-11] MEDS: Enoxaparin 120 MG/0.8 ML SYR SQ SCH (15:39)
--- NOTE | 2022-03-11 20:15 | P.PN ---
Subjective Date of Service: 03/11/22 Chief Complaint: NSTEMI Subjective: No new changes No acute events since admission. She continues to have orthopnea and shortness of breath with exertion. She denies chest pain or palpitations. Review of Systems 10-point ROS is otherwise unremarkable Respiratory: SOB with Excertion Cardiovascular: Orthopnea Physical Examination - Vital Signs Temperature: 97.1 F Blood Pressure: 136/86 Pulse: 44 Respirations: 20 Pulse Ox (%): 100 - Physical Exam General: Alert, In no apparent distress, Oriented x3 HEENT: Normocephalic, PERRLA, Mucous membr. moist/pink, EOMI, Sclerae nonicteric Neck: Supple, JVD distended Respiratory: Clear to auscultation bilaterally, Crackles/rales (bibasilar) Cardiovascular: Regular rate/rhythm, Normal S1 S2, No gallops, No rubs, No murmurs, Edema (2-3+ pitting) Gastrointestinal: Normal bowel sounds, Soft and benign, Non-distended, No tenderness, No rebound, No guarding Musculoskeletal: No clubbing Integumentary: No rashes, Other (left wound covered with surgical dressing) Neurological: Normal strength at 5/5 x4 extr, Cranial nerves 3-12 intact, Normal affect Assessment And Plan - Plan # Acute on Chronic Decompensated Congestive Heart Failure with Unknown Ejection Fraction # Pulmonary Arterial Hypertension - Consult Cardiology and spoke with Dr. Varghese - recommendations appreciated - Ordered transthoracic echocardiogram - Diuresis with IV furosemide and PO metolazone for today - Daily weights - Strict I/O - Cardiac diet, 2 L fluid restriction, 2 g Na restriction # Non-ST Segment Elevation Myocardial Infarction # Chronic Atrial Fibrillation (stable) # Hypertension - Evaluation thus far: - EKG: reportedly without evidence of STEMI criteria, trend - Serial troponin: 2669.7 -> 2191.7 -> 1966.9 - Ordered transthoracic echocardiogram - Management plan: - Consult Cardiology - recommendations appreciated - S/P aspirin 324 mg PO x 1 in ED - Start daily baby aspirin, atorvastatin - If cardiac ischemia confirmed, plan to start beta-jose eduardo, AMAURY- inhibitor/ARB, as tolerated # Chronic Obstructive Pulmonary Disease - No evidence of acute exacerbation - Continue home meds # Chronic Left Ankle Ulcer - Follows with Dr. Jj - Spoke with him - states nothing to do inpatient outside of wound care # Morbid Obesity - BMI 51.8 kg/m2 Charles Smith M.D.
[2022-03-11] MEDS: ATORVASTATIN 40 MG TAB PO SCH (21:04)
[2022-03-11] MEDS ORDERED: HYDROCODONE/APAP 5/325 MG TAB PO PRN (23:16)
[2022-03-12] MEDS: Enoxaparin 120 MG/0.8 ML SYR SQ SCH ×2 (01:26→07:39)
[2022-03-12] MEDS: ALBUTEROL 2.5 MG/3 ML NEB SOL NEB SCH ×6 (03:30→23:50)
[2022-03-12 06:23] LABS: Absolute Lymphocytes (CBC) 1.7 K/uL (0.7-4.9); Hematocrit 32.7 % (36.0-45.0); Lymphocytes % 18.8 % (15.3-44.8); MCV 89.3 fL (80-100); RBC Red Blood Cell Count 3.66 M/uL (3.86-4.86)
[2022-03-12 06:36] LABS: Potassium 3.4 mmol/L (3.5-5.1)
--- NOTE | 2022-03-12 07:52 | ECHO ---
HEIGHT: 5 ft 3 in WEIGHT: 292 lb 6.4 oz DATE OF STUDY: 03/11/[address]: Dea Rosado 2-DIMENSIONAL: YES M.MODE: YES DOPPLER: YES COLOR FLOW: YES TDS: NO PORTABLE: YES DEFINITY: NO BUBBLE STUDY: NO DIAGNOSIS: NSTEMI/CHF CARDIAC HISTORY: CATHERIZATION: SURGERY: PROSTHETIC VALVE: PACEMAKER: MEASUREMENTS (cm) DIASTOLIC (NORMALS) SYSTOLIC (NORMALS) IVSd 1.2 (0.6-1.2) LA Diam 4.8 (1.9-4.0) LVEF 53% LVIDd 5.2 (3.5-5.7) LVIDs 4.6 (2.0-3.5) %FS 28% LVPWd 1.4 (0.6-1.2) Ao Diam 3.0 (2.0-3.7) 2 DIMENSIONAL ASSESSMENT: RIGHT ATRIUM: NORMAL LEFT ATRIUM: DILATED RIGHT VENTRICLE: NORMAL LEFT VENTRICLE: LEFT VENTRICULAR HYPERTROPHY TRICUSPID VALVE: NORMAL MITRAL VALVE: NORMAL PULMONIC VALVE: NORMAL AORTIC VALVE: NORMAL PERICARDIAL EFFUSION: NONE AORTIC ROOT: NORMAL LEFT VENTRICULAR WALL MOTION: NORMAL EJECTION FRACTION, DECREASED COMPLIANCE. DOPPLER/COLOR FLOW: DECREASED LEFT VENTRICULAR COMPLIANCE. COMMENTS: DIASTOLIC DYSFUNCTION. NORMAL EJECTION FRACTION. LEFT VENTRICULAR HYPERTROPHY. LEFT VENTRICULAR HYPERTROPHY. LEFT ATRIAL ENLARGEMENT. TECHNOLOGIST: JOSEPH GROVER
[2022-03-12] MEDS: METOLAZONE 5 MG TABLET PO SCH (09:00)
[2022-03-12] MEDS ORDERED: PNEUMOCOCCAL VACCINE 0.5 ML IMVAC ONE (09:00)
[2022-03-12] MEDS: ASPIRIN EC 81 MG TAB PO SCH (09:00)
[2022-03-12] MEDS: FUROSEMIDE 20 MG/ 2ML VIAL IV SCH ×2 (09:20→17:00)
[2022-03-12] MEDS ORDERED: HEPA 1000U/500MLS 2,000 UNIT/1,000 ML BAG IV ONE (10:39)
--- NOTE | 2022-03-12 12:22 | CON ---
Date of Consultation: 03/11/2022 Reason For Consultation: Non-ST elevation myocardial infarction. History Of Present Illness: Ms. Patterson is a 67-year-old black woman, has seen Dr. Rivera in the past. Has known chronic diastolic congestive heart failure. Comes in with bradycardia hypercapnia, elevated BNP, troponin is 2700, shortness of breath, chest tightness, negative CTA and negative venou s Doppler. Chest x-ray showed congestive heart failure. The patient denied any nausea, vomiting, di aphoresis. Has had chest pain, shortness of breath, PND, orthopnea, and pedal edema more on the left than the right side. Has had in the left foot. Past Medical History: Includes atrial fibrillation, congestive heart failure, hypertension, and asth ma. She is also has a history of gout. Allergies: SHE IS ALLERGIC TO INSECT VENOM. Home Medications: Include clonidine, Xanax, losartan, amiodarone, Plavix, aspirin, Norvasc, allopuri nol, magnesium, losartan, hydralazine, Coreg, and Xarelto. Review of Systems: Negative. Social History: Negative. Family History: Positive for heart disease. Physical Examination: General: She was pleasant, no acute distress. Vital Signs: Stable. Heart rate was 44, afebrile, sinus rhythm. HEENT: Negative. Neck: Supple with no bruit, lymphadenopathy, JVD, or thyromegaly. Chest: Revealed rales both bases. Cardiac: Revealed bradycardia with S4 gallops. Abdomen: Obese, but benign. Extremities: Revealed bilateral edema, more on the left than the right. Skin: Warm, dry and intact. Neurologic: She was nonfocal. Diagnostic Data: As stated earlier. Impression And Plan: 1.Non-ST elevation myocardial infarction. 2.Bradycardia. 3.Hypercapnia. 4.Acute on chronic diastolic congestive heart failure. 5.Atrial fibrillation in sinus rhythm, on amiodarone and Xarelto. Xarelto has been held. 6.Hypertension, well controlled. 7.Asthma. 8.Obesity. 9.Venous stasis ulcers. I think Ms. Patterson deserves a left heart catheterization to define her c oronary anatomy. Xarelto was held. The patient understands the risk and the benefits of the procedu re and she agrees to proceed. JAEL/MODL Voice ID: [id number] Report ID: [id number]
[2022-03-12] MEDS ORDERED: NA CHLORIDE 0.9% 500 ML ONE (13:19)
[2022-03-12] MEDS ORDERED: FENTANYL CITR 100 MCG/2 ML ONE (13:48)
[2022-03-12] MEDS ORDERED: ATROPINE SULF 1 MG/10 ML SYR IV ONE (13:49)
[2022-03-12] MEDS ORDERED: MIDAZOLAM HCL 2 MG/2 ML INJ ONE ×2 (13:49→15:31)
[2022-03-12] MEDS ORDERED: ASPIRIN 325 MG TAB ONE (13:49)
[2022-03-12] MEDS ORDERED: CLOPIDOGREL 75 MG TABLET ONE (13:49)
[2022-03-12] MEDS ORDERED: TICAGRELOR 90 MG TABLET PO ONE ×2 (13:49→14:51)
--- NOTE | 2022-03-12 14:00 | EKG ---
Test Date: 2022-03-10 Test Time: 17:11:52 Gis Coordinator: MEASUREMENT RESULTS: Intervals: Rate: 45 OR: 254 QRSD: 106 QT: 580 QTc: 501 [place]ford: P: 62 OR: 254 QRS: -16 T: 62 INTERPRETIVE STATEMENTS: Marked sinus bradycardia with 1st degree AV block Prolonged QT Abnormal ECG Compared to ECG 08/10/2019 14:37:46 Sinus rhythm no longer present ST (T wave) deviation no longer present Possible ischemia no longer present Electronically Signed On 03-12-22 14:00:09 CDT by Blake Raphael
[2022-03-12] MEDS ORDERED: LIDOCAINE 1% MPF 30 ML VIAL ONE (15:05)
[2022-03-12] MEDS ORDERED: HEPARIN 5000 UNIT/ML 1 ML VIAL ONE (15:38)
[2022-03-12] MEDS ORDERED: HYDRALAZINE HCL 20 MG/ML VIAL ONE (16:17)
[2022-03-12] MEDS ORDERED: ACETAMINOPHEN 325 MG TABLET ONE (17:22)
--- NOTE | 2022-03-12 19:14 | OP ---
Date of Procedure: 03/12/2022 Surgeon: SYED BAUMANN Procedure Performed: Selective coronary angiogram. Indication: Non-ST elevation myocardial infarction. Access: Right radial artery 6-[place], closed with TR band. Complications: None. Bleeding: Less than 20 mL. Total Sedation Time: 25 minutes. Description Of Procedure: After risks, benefits, and alternatives were explained, the patient agreed to proceed and signed informed consent. Patient was brought into the cardiac catheterization labora tory, prepped and draped in usual sterile fashion. Then, we accessed right radial artery using pedia tric micropuncture kit and a 6-[place] slender sheath. Fentanyl and Versed were given in incremental doses to achieve adequate moderate sedation. I took a 5-[place] Crosby catheter into the aortic root, engaged left main, right coronary artery, took standard views. Then, we removed the catheter and she ath, placed TR band with good hemostasis. Findings: 1.Left main: Very large, almost 9-10 mm vessel with luminal irregularities. 2.LAD: Very large vessel with luminal irregularities throughout and all diagonal branches are also large, with luminal irregularities. 3.Left circumflex: Very large vessel, also ectatic and with luminal irregularities throughout. 4.RCA: Also large and ectatic with luminal irregularities throughout. Conclusion: 1.Very mild nonobstructive coronary artery disease. 2.Ectatic and an aneurysmal coronary arteries, very large, likely responsible for her symptoms as th e flow can be slow through those arteries. Recommendations: Recommend beta-jose eduardo for symptoms control to maximize for heart rate to be below 60, risk factor modification, and anti-platelet therapy. SR/MODL Voice ID: [id number] Report ID: [id number]
[2022-03-12] MEDS: ATORVASTATIN 40 MG TAB PO SCH (20:44)
--- NOTE | 2022-03-12 22:51 | P.PN ---
Subjective Date of Service: 03/12/22 Chief Complaint: NSTEMI No acute events overnight. She reports improvement in her shortness of breath, but she does continue to experience orthopnea. She denies chest pain or palpitations. Review of Systems 10-point ROS is otherwise unremarkable Respiratory: SOB with Excertion Cardiovascular: Orthopnea Physical Examination - Vital Signs Temperature: 97.1 F Blood Pressure: 184/97 Pulse: 57 Respirations: 18 Pulse Ox (%): 95 Assessment And Plan - Plan - Physical Exam General: Alert, In no apparent distress, Oriented x3 HEENT: Normocephalic, PERRLA, Mucous membr. moist/pink, EOMI, Sclerae nonicteric Neck: Supple, JVD distended Respiratory: Clear to auscultation bilaterally, Crackles/rales (faint bibasilar) Cardiovascular: Regular rate/rhythm, Normal S1 S2, No gallops, No rubs, No murmurs, Edema (2+ pitting) Gastrointestinal: Normal bowel sounds, Soft and benign, Non-distended, No tenderness, No rebound, No guarding Musculoskeletal: No clubbing Integumentary: No rashes, Other (left wound covered with surgical dressing) Neurological: Normal strength at 5/5 x4 extr, Cranial nerves 3-12 intact, Normal affect # Acute on Chronic Decompensated Congestive Heart Failure with Unknown Ejection Fraction # Pulmonary Arterial Hypertension - Consult Cardiology and spoke with Dr. Varghese - recommendations appreciated - Ordered transthoracic echocardiogram = LAE, LVH, diastolic dysfunction, LVEF 53 % - Diuresis with IV furosemide and PO metolazone for today - Daily weights - Strict I/O - Cardiac diet, 1.5 L fluid restriction, 2 g Na restriction # Non-ST Segment Elevation Myocardial Infarction # Chronic Atrial Fibrillation (stable) # Hypertension - Evaluation thus far: - EKG: reportedly without evidence of STEMI criteria, trend - Serial troponin: 2669.7 -> 2191.7 -> 1966.9 - Ordered transthoracic echocardiogram = LAE, LVH, diastolic dysfunction, LVEF 53 % - Management plan: - Consult Cardiology - recommendations appreciated - Plan for [facility] later today - S/P aspirin 324 mg PO x 1 in ED - Start daily baby aspirin, atorvastatin - If cardiac ischemia confirmed, plan to start beta-jose eduardo, AMAURY-i nhibitor/ARB, as tolerated # Chronic Obstructive Pulmonary Disease - No evidence of acute exacerbation - Continue home meds # Chronic Left Ankle Ulcer - Follows with Dr. Jj - Spoke with him - states nothing to do inpatient outside of wound care # Morbid Obesity - BMI 51.8 kg/m2 Charles Smith M.D.
[2022-03-13] MEDS: Enoxaparin 120 MG/0.8 ML SYR SQ SCH ×2 (02:06→13:08)
[2022-03-13] MEDS: ALBUTEROL 2.5 MG/3 ML NEB SOL NEB SCH ×4 (04:20→16:00)
[2022-03-13 07:49] LABS: Absolute Lymphocytes (CBC) 1.5 K/uL (0.7-4.9); Hematocrit 33.6 % (36.0-45.0); Lymphocytes % 27.9 % (15.3-44.8); MCV 87.2 fL (80-100); MPV 8.8 fL (7.6-11.3); RBC Red Blood Cell Count 3.86 M/uL (3.86-4.86)
--- NOTE | 2022-03-13 08:24 | P.DS ---
Admission Date: 03/10/22 Discharge Date: 03/13/22 Disposition: ROUTINE DISCHARGE Discharge Condition: GOOD Reason for Admission: NSTEMI Consultations: 1. Cardiology Procedures: - 03/12/2022 - Left Heart Catheterization: 1. Very mild nonobstructive coronary artery disease. 2. Ectatic and an aneurysmal coronary arteries, very large, likely responsible for her symptoms as the flow can be slow through those arteries. Hospital Course: DIAGNOSES: # Acute on Chronic Decompensated Congestive Heart Failure with Preserved Ejection Fraction # Non-ST Segment Elevation Myocardial Infarction # Pulmonary Arterial Hypertension # Chronic Atrial Fibrillation (stable) # Hypertension # Chronic Respiratory Failure due to Chronic Obstructive Pulmonary Disease - supposed to be on Home Oxygen, but never picked up # Chronic Left Ankle Ulcer # Morbid Obesity - BMI 51.8 kg/m2 HOSPITAL COURSE: Ms. Mellisa Patterson is a pleasant 67 year old female with a past medical history significant for chronic diastolic congestive heart failure, chronic atrial fibrillation, hypertension, COPD, and chronic left ankle ulcer who was admitted to the [facility] on 03/10/2022 for chest pain and shortness of breath. She was admitted to the Medicine service. Upon further evaluation, she was found to be in an acute on chronic decompensated congestive heart failure exacerbation. Additionally, she had elevated troponins with a trend of 2669.7 -> 2191.7 -> 1966.9. Cardiology was consulted and she underwent a left heart isis terization. She was found to have non-obstructive coronary artery disease. Cardiology recommended aspirin and a beta-jose eduardo, but a beta-jose eduardo was not started due to borderline bradycardia. In regards to her CHF, she was treated with IV diuretics, with improvement of her symptoms. Dr. Varghese evaluated her and has cleared her for discharge. I have updated her Dr. Jha (her PCP) on her hospital course, and he will see her in clinic early next week. On 03/13/2022, she was seen on morning rounds and deemed medically stable for discharge. She was discharged with instructions to schedule follow-up appointments with her PCP (Dr. Jha) in 3-5 days and with her [employer]r (Dr. Coombs) in 5-[address] Varghese will updated Dr. Coombs on her hospital course. She was provided prescriptions for bumetanide, atorvastatin, and metolazone. She was given the opportunity to ask questions and reported no further questions. Furthermore, all questions were answered to the best of my ability. Today, I personally spent 35 minutes on her case, of which greater than 50% of the time was spent in patient education, counseling, and coordination of care as described above. - Physical Exam General: Alert, In no apparent distress, Oriented x3 HEENT: Normocephalic, PERRLA, Mucous membr. moist/pink, EOMI, Sclerae nonicteric Neck: Supple, JVD distended Respiratory: Clear to auscultation bilaterally, no crackles/rales Cardiovascular: Regular rate/rhythm, Normal S1 S2, No gallops, No rubs, No murmurs, Edema (1-2+ pitting) Gastrointestinal: Normal bowel sounds, Soft and benign, Non-distended, No tenderness, No rebound, No guarding Musculoskeletal: No clubbing Integumentary: No rashes, Other (left wound covered with surgical dressing) Neurological: Normal strength at 5/5 x4 extr, Cranial nerves 3-12 intact, Normal affect Vital Signs/Physical Exam: Temp Pulse Resp BP Pulse Ox 97.1 F 50 18 193/110 H 100 03/13/22 08:00 03/13/22 08:00 03/13/22 08:00 03/13/22 08:00 03/13/22 08:00 Laboratory Data at Discharge: WBC 5.20 K/uL (4.3-10.9) D 03/13/22 07:21 Hgb 10.8 g/dL (12.0-15.0) L 03/13/22 07:21 Hct 33.6 % (36.0-45.0) L 03/13/22 07:21 Plt Count 266 K/uL (152-406) 03/13/22 07:21 PT 12.4 SECONDS (9.5-12.5) 03/10/22 17:28 INR 1.12 03/10/22 17:28 Sodium 139 mmol/L (136-145) 03/13/22 07:21 Potassium 3.0 mmol/L (3.5-5.1) L 03/13/22 07:21 BUN 22 mg/dL (7-18) H 03/13/22 07:21 Creatinine 1.10 mg/dL (0.55-1.3) 03/13/22 07:21 Glucose 90 mg/dL (74-106) 03/13/22 07:21 Phosphorus 4.5 mg/dL (2.5-4.9) 03/11/22 02:02 Magnesium 2.1 mg/dL (1.8-2.4) 03/11/22 02:02 Total Bilirubin 0.4 mg/dL (0.2-1.0) 03/10/22 17:28 AST 14 U/L (15-37) L 03/10/22 17:28 ALT 17 U/L (12-78) 03/10/22 17:28 Alkaline Phosphatase 77 U/L (45-117) 03/10/22 17:28 Triglycerides 65 mg/dL (<150) 03/11/22 02:02 Cholesterol 162 mg/dL (<200) 03/11/22 02:02 HDL Cholesterol 41 mg/dL (40-60) 03/11/22 02:02 Cholesterol/HDL Ratio 3.95 03/11/22 02:02 Home Medications: Amiodarone HCl [Cordarone*] 200 mg PO DAILY 05/25/19 Aspirin [Aspir-Low] 81 mg PO DAILY 05/25/19 Cholecalciferol (Vitamin D3) [Vitamin D3] 1,000 unit PO BID 05/25/19 Clopidogrel Bisulfate [Plavix*] 75 mg PO DAILY 05/25/19 Magnesium Oxide [Magnesium] 250 mg PO DAILY 05/25/19 Pregabalin [Lyrica*] 50 mg PO DAILY 05/25/19 Rivaroxaban [Xarelto*] 15 mg PO DAILY 05/25/19 Triamcinolone 0.1% Oint [Kenalog 0.1% Ointment*] 1 appl TOP BID PRN 05/25/19 Zinc Sulfate [Zinc Sulfate*] 220 mg PO DAILY 05/25/19 carvediloL [Coreg*] 25 mg PO TID 05/25/19 cloNIDine HCL [Catapres] 0.1 mg PO TID 05/25/19 Fluocinonide [Lidex] 1 appl TD PRN 08/10/19 Lidocaine 4% Patch [Lidoderm 5% Patch*] 1 patch TD PRN 08/10/19 Levalbuterol [Xopenex*] 0.63 mg NEB TID PRN #90 vial 08/14/19 predniSONE [Deltasone*] 10 mg PO DAILY #5 tab 08/14/19 Budesonide/Formoterol Fumarate [Symbicort 160-4.5 Mcg Inhaler] 2 puff IH BID #1 hfa.aer.ad 08/15/19 ALPRAZolam [Xanax*] 1 tab PO PRN PRN 03/11/22 Allopurinol 1 tab PO DAILY 03/11/22 Amitriptyline HCl 1 tab PO DAILY 03/11/22 Amlodipine Besylate [Norvasc] 1 tab PO DAILY 03/11/22 Bupropion HCl [Wellbutrin Xl] 1 tab PO DAILY 03/11/22 Cholecalciferol (Vitamin D3) [Vitamin D 1000 Iu Tab*] 1 tab PO DAILY 03/11/22 Collagenase [Santyl Ointment*] 250 units TOP DAILY 03/11/22 Ferrous Sulfate 1 tab PO DAILY 03/11/22 Hydralazine HCl 1 tab PO Q8HR PRN 03/11/22 Losartan Potassium 1 tab PO DAILY 03/11/22 Mupirocin Cream [Bactroban 2% Cream*] 1 dose TOP BID 03/11/22 SUMAtriptan succinate [Sumatriptan Succinate] 100 mg PO BID PRN 03/11/22 Sertraline HCl 1 tab PO DAILY 03/11/22 Spironolactone 25 mg PO DAILY 03/11/22 Tizanidine HCl 4 mg PO TID PRN 03/11/22 Topiramate 2 tab PO BID 03/11/22 Trazodone HCl 1 tab PO BEDTIME 03/11/22 Vitamin E (Dl,Tocopheryl Acet) [Vitamin E] 1 cap PO BID 03/11/22 hydrOXYzine pamoate [Hydroxyzine Pamoate] 1 tab PO Q8HR PRN 03/11/22 Atorvastatin Calcium [Lipitor] 40 mg PO BEDTIME #30 tab 03/13/22 Bumetanide 1 mg PO DAILY #30 tab 03/13/22 metOLazone [Zaroxolyn*] 2.5 mg PO M,W,F #15 tab 03/13/22 New Medications: Bumetanide 1 mg PO DAILY #30 tab Atorvastatin Calcium [Lipitor] 40 mg PO BEDTIME #30 tab metOLazone [Zaroxolyn*] 2.5 mg PO M,W,F #15 tab Physician Discharge Instructions: 1. Please schedule a follow-up appointment with your PCP (Dr. Jha) in 3-5 days 2. Please schedule a follow-up appointment with your [employer] (Dr. Coombs) in 5-7 days 3. Please follow-up with General Surgery/wound care with Dr. Jj as previously scheduled Diet: Low sodium Activity: Ad columba Followup: JOSEPH COOMBS [UNKNOWN] - (Call to schedule appointment) Bull Jha DO [ACTIVE - CAN ADMIT] - (Call to schedule appointment) Avery Jj MD [ACTIVE - CAN ADMIT] - Time spent managing pt's care (in minutes): 35
[2022-03-13] MEDS: METOLAZONE 5 MG TABLET PO SCH (09:00)
[2022-03-13] MEDS: ASPIRIN EC 81 MG TAB PO SCH (09:01)
[2022-03-13] MEDS ORDERED: POTASSIUM CL SA 10 MEQ TAB PO ONE (09:26)
[2022-03-13] MEDS: FUROSEMIDE 20 MG/ 2ML VIAL IV SCH ×2 (09:45→16:25)
[2022-03-13] MEDS ORDERED: KCL 20 MEQ/100 mL IVPB 20 MEQ/100 ML BAG IV SCH (10:00)
--- NOTE | 2022-03-13 10:57 | PN ---
Date of Progress Note: 03/13/2022 Ms. Patterson had a heart catheterization yesterday by Dr. Raphael that showed a very large, ectatic, aneurysmatic blood vessel without any focal stenosis. The case was discussed with Dr. Smith. From o ur standpoint, she can go home today. She is still hypertensive. No issues with her catheterization entry site. She is on aspirin, Lovenox, Lipitor, Lasix, metolazone. I think when she goes home, sh e needs to continue with amiodarone or amlodipine. Consider Lasix or Bumex. Continue metolazone. S he definitely needs to continue losartan, as well as hydralazine, Xarelto, spironolactone, and carved ilol. She will follow up with Dr. Rivera soon. Her hydralazine dose considered to be increased for her blood pressure. JAEL/MORIAH Voice ID: [id number] Report ID: [id number]
[2022-03-13 16:26] VITALS: BP 189/99
[2022-03-13 16:49] VITALS: TEMP 97.4
[2022-03-13 18:24] VITALS: O2SAT 96
== END 2022-03-13 18:41 | disposition home or self-care (01) | DRG 280 ==
LOC: ER 15:06 → ERHOLD 22:52 → 4TH 03-11 13:28
PROVIDERS: ADMIT Internal Medicine; ATTEND Internal Medicine
PROC: 5A09357 Assistance with Respiratory Ventilation, Less than 24 Consecutive Hours, Continuous Positive Airway Pressure (ICD-10-PCS; 2022-03-10)
PROC: 4A023N7 Measurement of Cardiac Sampling and Pressure, Left Heart, Percutaneous Approach (ICD-10-PCS; principal; 2022-03-12)
PROC: B2111ZZ Fluoroscopy of Multiple Coronary Arteries using Low Osmolar Contrast (ICD-10-PCS; 2022-03-12)
DX: I21.4 Non-ST elevation (NSTEMI) myocardial infarction (principal); I50.33 Acute on chronic diastolic (congestive) heart failure; Z68.43 Body mass index [BMI] 50.0-59.9, adult; I48.11 Longstanding persistent atrial fibrillation; E87.2 Acidosis; L97.322 Non-pressure chronic ulcer of left ankle with fat layer exposed; J96.12 Chronic respiratory failure with hypercapnia; I11.0 Hypertensive heart disease with heart failure; E66.01 Morbid (severe) obesity due to excess calories; M10.9 Gout, unspecified; I27.21 Secondary pulmonary arterial hypertension; I89.0 Lymphedema, not elsewhere classified; J44.9 Chronic obstructive pulmonary disease, unspecified; F17.210 Nicotine dependence, cigarettes, uncomplicated; Z79.01 Long term (current) use of anticoagulants; Z99.81 Dependence on supplemental oxygen; Z91.14 Patient's other noncompliance with medication regimen; Z79.82 Long term (current) use of aspirin; Z79.02 Long term (current) use of antithrombotics/antiplatelets; Z79.52 Long term (current) use of systemic steroids; Z79.899 Other long term (current) drug therapy; Z28.310 Unvaccinated for COVID-19; Z20.822 Contact with and (suspected) exposure to COVID-19
CPT/HCPCS: 36415; 70450; 71045; 71275; 76937; 80048; 80061; 80076; 82550; 82553; 82805; 83605; 83735; 83880; 84100; 84132; 84145; 84443; 84484; 85025; 85610; 87040; 87811; 93005; 93306; 93454; 93971; 94640; 94660; 94760; 99213; 99285; C1893; J0360; J1644; J1650; J1940; J2250; J2930; J3010; J3480; J7040; Q9966; Q9967

== ENCOUNTER 2022-11-15 19:31 | Emergency (ER) | payer BC, OTHER ==
--- OUTSIDE RECORDS SUMMARY | 2022-11-15 20:02 | XMS REPORT | Continuity of Care Document ---
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 at 0000, Routine sodium 2022-0 Yes Topical, Univers hypochlorit 3-30 BID, First it y of e 0.025% 01:00: dose on [place] ([place]) Wed Medical solution 10/07/22 at [facility] h 2000, Until Discontinu ed, Routine sodium 2022-0 Yes Topical, Univers hypochlorit 3-30 BID, First it y of e 0.025% 01:00: dose on [place] ([place]) Wed Medical solution 10/07/22 at [facility] h 2000, Until Discontinu ed, Routine digoxin 0 2022- Yes 250ug 250 mcg, Univ ers (LANOXIN) 10-08 Intravenou ity of injection 01:00: 12:59 s, ONCE, 1 [place] 250 mcg 00 :00 dose, On [facility] Branch 10/07/22 at 2000, Routine digoxin 0 2022- No 250ug 250 mcg, Univ ers (LANOXIN) 10-0830 Intravenou ity of injection 01:00: 01:38 s, ONCE, 1 [place] 250 mcg 00 :00 dose, On [facility] Branch 10/07/22 at 2000, Routine bumetanide 2022-0 Yes [id number] 4mg Take 2 U nivers 2 mg tablet 3-30 tablets by it y of 00:00: mouth [place] 00 every Medical morning Branch and evening. rivaroxaban 2022-0 Yes 1358 20mg Take 1 Univ ers (XARELTO) 3-30 tablet by ity o f 20 mg 00:00: mouth in [place] tablet 00 the Medical morning. Branch Indication s: atrial fibrillati on bumetanide 2023-0 Yes [id number] 4mg Take 2 U nivers 2 mg tablet 3-30 tablets by it y of 00:00: mouth [place] 00 every Medical morning Branch and evening. rivaroxaban 2023-0 Yes 1358 20mg Take 1 Univ ers (XARELTO) 3-30 tablet by ity o f 20 mg 00:00: mouth in [place] tablet 00 the Medical morning. Branch Indication s: atrial fibrillati on bumetanide 2023-0 Yes [id number] 4mg Take 2 U nivers 2 mg tablet 3-30 tablets by it y of 00:00: mouth [place] 00 every Medical morning Branch and evening. rivaroxaban 3-0 Yes 1358 20mg Take 1 Univ ers (XARELTO) 3-30 tablet by ity o f 20 mg 00:00: mouth in [place] tablet 00 the Medical morning. Branch Indication s: atrial fibrillati on bumetanide 3-0 Yes [id number] 4mg Take 2 U nivers 2 mg tablet 3-30 tablets by it y of 00:00: mouth [place] 00 every Medical morning Branch and evening. rivaroxaban 3-0 Yes 1358 20mg Take 1 Univ ers (XARELTO) 3-30 tablet by ity o f 20 mg 00:00: mouth in [place] tablet 00 the Medical morning. Branch Indication s: atrial fibrillati on bumetanide 3-0 Yes [id number] 4mg Take 2 U nivers 2 mg tablet 3-30 tablets by it y of 00:00: mouth [place] 00 every Medical morning Branch and evening. rivaroxaban 2023-0 Yes 1358 20mg Take 1 Univ ers (XARELTO) 3-30 tablet by ity o f 20 mg 00:00: mouth in [place] tablet 00 the Medical morning. Branch Indication s: atrial fibrillati on bumetanide 2023-0 Yes [id number] 4mg Take 2 U nivers 2 mg tablet 3-30 tablets by it y of 00:00: mouth [place] 00 every Medical morning Branch and evening. rivaroxaban 2023-0 Yes 1358 20mg Take 1 Univ ers (XARELTO) 3-30 tablet by ity o f 20 mg 00:00: mouth in [place] tablet 00 the Medical morning. Branch Indication s: atrial fibrillati on bumetanide 2023-0 Yes [id number] 4mg Take 2 U nivers 2 mg tablet 3-30 tablets by it y of 00:00: mouth [place] 00 every Medical morning Branch and evening. rivaroxaban Yes 1358 20mg Take 1 Univ ers (XARELTO) 3-30 tablet by ity o f 20 mg 00:00: mouth in [place] tablet 00 the Medical morning. Branch Indication s: atrial fibrillati on digoxin 2022- No 500ug 500 mcg, Univ ers (LANOXIN) 10-07 Intravenou ity of injection 16:45: 18:00 s, ONCE, 1 [place] 500 mcg 00 :00 dose, On Medical Wed10/07/22 at 1145, Routine metOLazone 2022- No 2.5mg 2.5 mg, Un kayla (ZAROXOLYN 10-07 Oral, ity of 2.5MG) 16:15: 18:00 ONCE, 1 [place] tablet 2.5 00 :00 dose, On Medic al mg Wed10/07/22 at 1115, Routine magnesium 2022- No 2g 2 g, IV Univ ers sulfate in 10-07 Piggyback, it y of water 2 13:00: 14:53 Administer [place] gram/50 mL 00 :00 over 60 Medica l (4 %) Minutes, Branch infusion 2 ONCE, 1 g dose, On Wed10/07/22 at 0800, Routine iodixanol 2022- No ONCE INTRA U nivers (VISIPAQUE 10-06 PROCEDURE, it y of 320-100 mL) 23:44: 00:13 Starting [place] injection 35 :56 on [facility] 10/06/22 at Branch 1844, Until [facility] 10/06/22 at 1913, Routine, CV Intraproce dure lidocaine 2022- No ONCE INTRA U nivers 1% (PF) 10-06 PROCEDURE, ity o f (XYLOCAINE) 22:55: 00:13 Starting [place] injection 12 :56 on [facility] 10/06/22 at Branch 1755, Until Wed10/06/22 at 1913, Routine, CV Intraproce dure midazolam 2022- No ONCE INTRA U nivers (VERSED) 10-06 PROCEDURE, ity of injection 22:51: 00:13 Starting [place] 22 :56 on Wed10/06/22 at Branch 1751, Until Wed10/06/22 at 191, Routine, CV Intraproce dure FENTanyl PF 2022- No ONCE INTRA Univers (SUBLIMAZE 10-06 PROCEDURE, it y of (PF)) 22:51: 00:13 Starting [place] injection 10 :56 on Wed10/06/22 at Branch 1751, Until Wed10/06/22 at 191, Routine, CV Intraproce dure spironolact Yes 50mg 50 mg, Univ ers one 10-06 Oral, ity of (ALDACTONE) 14:00: DAILY, [place] tablet 50 00 First dose Medi [place] mg (after [place] last modificati on) on Wed10/06/22 at 0900, Until Discontinu ed, Routine spironolact Yes 50mg 50 mg, Univ ers one 10-06 Oral, ity of (ALDACTONE) 14:00: DAILY, [place] tablet 50 00 First dose Medi [place] mg (after [place] last modificati on) on Wed10/06/22 at 0900, Until Discontinu ed, Routine potassium 2022- No 20meq 20 mEq, IV Univers chloride in 10-06 Piggyback, i ty of water (KCL) 11:00: 14:34 Q2H, 3 [place] 20 mEq/100 00 :45 doses, Medical mL RTU IVPB First dose Br anch 20 mEq on Wed10/06/22 at 0600, Last dose on Wed10/06/22 at 1000, 100 mL magnesium 2022- No 2g 2 g, IV Univ ers sulfate in 10-06 Piggyback, it y of water 2 10:45: 13:00 Administer [place] gram/50 mL 00 :00 over 60 Medica l (4 %) Minutes, Branch infusion 2 ONCE, 1 g dose, On Wed10/06/22 at 0545, Routine polyethylen Yes 17g 17 g, Unive rs e glycol 10-06 Oral, ity of 3350 powder 02:00: DAILY, [place] 17 g 00 First dose Medical on Wed [place] 10/05/22 at 2100, Until Discontinu ed, Routine sennosides- 0 Yes 1{tbl} 1 tablet, [facility] docusate 10-06 Oral, ity of sodium 02:00: DAILY, [place] (SENOKOT-S) 00 First dose Me dical 8.6-50 mg on Wed per tablet 10/05/22 at 1 tablet 2100, Until Discontinu ed, Routine polyethylen Yes 17g 17 g, Unive rs e glycol 10-06 Oral, ity of 3350 powder 02:00: DAILY, [place] 17 g 00 First dose Medical on Wed [place] 10/05/22 at 2100, Until Discontinu ed, Routine sennosides- Yes 1{tbl} 1 tablet, [facility] docusate 10-06 Oral, ity of sodium 02:00: DAILY, [place] (SENOKOT-S) 00 First dose Me dical 8.6-50 mg on Wed per tablet 10/05/22 at 1 tablet 2100, Until Discontinu ed, Routine losartan 2022- No 12.5mg 12.5 mg, Un kayla (COZAAR) 10-05 Oral, ity of tablet 12.5 15:15: 14:13 DAILY, [place] mg 00 :43 First dose Medical on [facility] 10/05/22 at 1015, Until Discontinu ed, Routine spironolact 2022- No 25mg 25 mg, Uni vers one 10-05 Oral, ity of (ALDACTONE) 14:00: 11:47 DAILY, [place] tablet 25 00 :42 First dose Medi [place] mg (after Branch last modificati on) on Wed10/05/22 at 0900, Until Discontinu ed, Routine magnesium 2022- No 4g 4 g, IV Univ ers sulfate in 10-05 Piggyback, it y of water 4 12:45: 17:54 at 25 [place] gram/50 mL 00 :00 mL/hr Medical (8 %) IV Administer Branc h Piggyback 4 over 120 g Minutes, ONCE, 1 dose, On Wed10/05/22 at 0745, Routine acetaminoph No 1{tbl} 1 tablet, Univers en-codeine 10-05 Oral, ONCE it y of (TYLENOL 02:53: 03:15 NOW, 1 [place] #3) 300-30 00 :00 dose, On Medic al mg tablet 1 [place] Branch tablet 10/04/22 at 2200, Routine bumetanide Yes 4mg 4 mg, Slow U nivers (BUMEX) 10-05 IV Push, ity of injection 4 01:30: QAM+PM, [place] mg 00 First dose Medical (after Branch last modificati on) on [place] 10/04/22 at 2030, Until Discontinu ed, Routine bumetanide No 4mg 4 mg, Slow Univers (BUMEX) 10-05 IV Push, ity of injection 4 01:30: 14:48 QAM+PM, [place] mg 00 :49 First dose Medical (after Branch last modificati on) on [place] 10/04/22 at 2030, Until Discontinu ed, Routine KCL No 40meq 40 mEq, Univers (KLOR-CON 10-05 Oral, ity of M20) tablet 01:17: 01:38 ONCE, 1 [place] 40 mEq 00 :00 dose, On Medical [facility] 10/04/22 at 2030, Routine KCL No 40meq 40 mEq, Univers (KLOR-CON 10-04 Oral, Q2H, ity of M20) tablet 19:00: 22:59 2 doses, [place] 40 mEq 00 :00 First dose Medical on [facility] 10/04/22 at 1400, Last dose on [place] 10/04/22 at 1600, Routine magnesium 2022- No 4g 4 g, IV Univ ers sulfate in 10-04 Piggyback, it y of water 4 19:00: 22:[address] [place] [address] gram/50 mL 00 :00 mL/hr Medical (8 %) IV Administer Branc h Piggyback 4 over 120 g Minutes, ONCE, 1 dose, On [place] 10/04/22 at 1400, Routine iron No 300mg 300 mg, IV Unive rs sucrose 10-04 Infusion, ity of (VENOFER) 13:00: 17:09 ONCE, [place] 300 mg in 00 :00 Administer Medi [place] NaCl 0.9% over 4 Branch (NS) 250 mL Hours, On infusion 10/04/22 at 0800, For 1 dose potassium 2022-0 2022- No 20meq 20 mEq, IV Univers chloride in 10-04 Piggyback, i ty of water (KCL) 04:30: 08:23 ONCE, 1 [place] 20 mEq/100 00 :00 dose, On Medic al mL RTU IVPB Sat Branch 20 mEq 10/03/22 at 2330, 100 mL magnesium 2022-0 2022- No 4g 4 g, IV Univ ers sulfate in 10-04 Piggyback, it y of water 4 04:30: 06:11 at 25 [place] gram/50 mL 00 :00 mL/hr Medical (8 %) IV Administer Branc h Piggyback 4 over 120 g Minutes, ONCE, 1 dose, On 10/03/22 at 2330, Routine metOLazone 2022- No 2.5mg 2.5 mg, Un kayla (ZAROXOLYN) 10-04 Oral, ity of 1 mg/mL 03:00: 04:10 ONCE, 1 [place] oral 00 :00 dose, On Medical suspension Sat Branch 2.5 mg 10/03/22 at 2200, Routine bumetanide 2022-2022- No 2mg 2 mg, Slow Univers (BUMEX) 10-03 IV Push, ity of injection 2 19:00: 20:55 TID, First [place] mg 00 :32 dose Medical (after Branch last modificati on) on 10/03/22 at 1400, Until Discontinu ed, Routine potassium 2022-0 2022- No 20meq 20 mEq, IV Univers chloride in 10-03 Piggyback, i ty of water (KCL) 13:00: 14:54 ONCE, 1 [place] 20 mEq/100 00 :00 dose, On Medic al mL RTU IVPB Sat Branch 20 mEq 10/03/22 at 0800, 100 mL bumetanide 2022-0 2022- No 2mg 2 mg, Slow Univers (BUMEX) 10-03 IV Push, ity of injection 2 12:38: 15:59 ONCE, 1 [place] mg 00 :11 dose, On Medical Sat Branch 10/03/22 at 0745, Routine magnesium 2022- No 4g 4 g, IV Univ ers sulfate in 10-03 Piggyback, it y of water 4 12:00: 14:35 at 25 [place] gram/50 mL 00 :00 mL/hr Medical (8 %) IV Administer Branc h Piggyback 4 over 120 g Minutes, ONCE, 1 dose, On 10/03/22 at 0700, Routine heparin Yes 0U/h 0-3,200 Univers 25,000 10-03 Units/hr ity of Units/250 07:46: (0-32 [place] mL 09 mL/hr), IV Medical (Premixed Infusion, Branc h Bag) in TITRATE, 0.45 % NS Parameters in Admin. Instr., Starting on 10/03/22 at 0246
In itiate dosing:&nb sp; & nbsp;&nbsp ; -Patient 83 kg or under: 1,000 Units/hr (Calculate d dose at 12 units/kg/h r) &n bsp; &nbs p; -Patient over 83 k,000 units/hr&n bsp;DO NOT Exceed the MAXIMUM 1,000 units/hr for initiation of heparin drip.&nbsp ; CAU TION - If LMWH given in ER, AVOID bolus and start next dose/drip 12 hrs after ER dosage.&nb sp; M ust program rate using programmab le infusion pump.&nbsp ; Julisa ck with the ordering provider first prior to any administra tion should the patient be on existing/a dditional anticoagul ant therapy. Rang e, Dosing and Testing: &nbs p;FOR [facility], [facility], AND [facility] ONLY &nbs p; - aPTT < 35: & nbsp;Bolus 5000 units, increase rate 300 units/hr&n bsp; - aPTT 35-44:&nbs p; Gorge nini 3000 units, increase rate 200 units/hr&n bsp; - aPTT 45-54:&nbs p; In crease rate 100 units/hr&n bsp; - aPTT 55-85:&nbs p; NO CHANGE&nbs p; - aPTT 86-95:&nbs p; De crease rate 100 units/hr&n bsp; - aPTT 96-120:&nb sp; H old 30 minutes, decrease rate 150 units/hr&a mp;nbsp; - aPTT > 120: Hold 60 minutes, decrease rate 200 units/hr&n bsp; Check aPTT 6 hours after initiation , then Q6H after every change, aPTT Q12H once therapeuti c levels are reached.&n bsp; &nbs p; __ &n bsp;FOR [facility] ONLY - aPTT < 40: & nbsp;Bolus 5000 units, increase rate 300 units/hr&n bsp; - aPTT 40-49:&amp ;nbsp;&nbs p;Bolus 3000 units, increase rate 200 units/hr&n bsp; - aPTT 50-59:&nbs p; In crease rate 100 units/hr&n bsp; - aPTT 60-85:&nbs p; NO CHANGE&nbs p; - aPTT 86-95:&nbs p; De crease rate 100 units/hr&n bsp; - aPTT 96-120:&nb sp; H old 30 minutes, decrease rate 150 units/hr&n bsp; - aPTT > 120: Hold 60 minutes, decrease rate 200 units/hr&n bsp; Check aPTT 6 hours after initiation , then Q6H after every change, aPTT Q12H once therapeuti c levels are reached.&n bsp; DO NOT ADJUST INITIAL BOLUS OR INITIAL INFUSION RATE.
heparin 202-0 2022- No 0U/h 0-3,200 Univer s 25,000 3-25 03-30 Units/hr ity of Units/250 07:46: 23:40 (0-32 [place] mL 09 :18 mL/hr), IV Medical (Premixed Infusion, Branc h Bag) in TITRATE, 0.45 % NS Parameters in Admin. Instr., Starting on 10/03/22 at 0246
In itiate dosing:&nb sp; & nbsp;&nbsp ; -Patient 83 kg or under: 1,000 Units/hr (Calculate d dose at 12 units/kg/h r) &n bsp; &nbs p; -Patient over 83 k,000 units/hr&n bsp;DO NOT Exceed the MAXIMUM 1,000 units/hr for initiation of heparin drip.&nbsp ; CAU TION - If LMWH given in ER, AVOID bolus and start next dose/drip 12 hrs after ER dosage.&nb sp; M ust program rate using programmab le infusion pump.&nbsp ; Julisa ck with the ordering provider first prior to any administra tion should the patient be on existing/a dditional anticoagul ant therapy. Rang e, Dosing and Testing: &nbs p;FOR [facility], [facility], AND [facility] ONLY &nbs p; - aPTT < 35: & nbsp;Bolus 5000 units, increase rate 300 units/hr&n bsp; - aPTT 35-44:&nbs p; Gorge nini 3000 units, increase rate 200 units/hr&n bsp; - aPTT 45-54:&nbs p; In crease rate 100 units/hr&n bsp; - aPTT 55-85:&nbs p; NO CHANGE&nbs p; - aPTT 86-95:&nbs p; De crease rate 100 units/hr&n bsp; - aPTT 96-120:&nb sp; H old 30 minutes, decrease rate 150 units/hr&a mp;nbsp; - aPTT > 120: Hold 60 minutes, decrease rate 200 units/hr&n bsp; Check aPTT 6 hours after initiation , then Q6H after every change, aPTT Q12H once therapeuti c levels are reached.&n bsp; &nbs p; __ &n bsp;FOR [facility] ONLY - aPTT < 40: & nbsp;Bolus 5000 units, increase rate 300 units/hr&n bsp; - aPTT 40-49:&amp ;nbsp;&nbs p;Bolus 3000 units, increase rate 200 units/hr&n bsp; - aPTT 50-59:&nbs p; In crease rate 100 units/hr&n bsp; - aPTT 60-85:&nbs p; NO CHANGE&nbs p; - aPTT 86-95:&nbs p; De crease rate 100 units/hr&n bsp; - aPTT 96-120:&nb sp; H old 30 minutes, decrease rate 150 units/hr&n bsp; - aPTT > 120: Hold 60 minutes, decrease rate 200 units/hr&n bsp; Check aPTT 6 hours after initiation , then Q6H after every change, aPTT Q12H once therapeuti c levels are reached.&n bsp; DO NOT ADJUST INITIAL BOLUS OR INITIAL INFUSION RATE.
heparin Yes 3000U FOR Univers (1,000 3-25 REBOLUSING ity of unit/mL, 10 07:45: , Starting [place] mL vial) 57 on [facility] for 10/03/22 at [place] [address], Until Discontinu ed, Routine
Dosing based on aPPT testing parameters (refer to continuous heparin drip order).
heparin Yes 3000U FOR Univers (1,000 3-25 REBOLUSING ity of unit/mL, 10 07:45: , Starting [place] mL vial) 57 on [facility] for 10/03/22 at [place] [address], Until Discontinu ed, Routine
Dosing based on aPPT testing parameters (refer to continuous heparin drip order).
labetaloL 2022- No 20mg 20 mg, Unive rs (NORMODYNE) 10-03 03 Slow IV ity of injection 05:02: 12:43 Push, [place] 20 mg 57 :57 Q4HPRN, Medical Starting Branch on [facility] 10/03/22 at 0002, Until 10/05/22 at 0743, Routine, SBP > 180, DBP > 110 collagenase Yes Topical Uni vers (SANTYL) -25 (Apply To ity of ointment 04:34: Affected [place] 21 Areas), Medical PRN, Branch Starting on Wed10/02/22 at 2334, Until Discontinu ed, Routine, Wound care collagenase Yes Topical Uni vers (SANTYL) 3-25 (Apply To ity of ointment 04:34: Affected [place] 21 Areas), Medical PRN, Branch Starting on Wed10/02/22 at 2334, Until Discontinu ed, Routine, Wound care traZODone 2023-0 Yes 25mg 25 mg, Univer s (DESYREL) 3-25 Oral, QHS, ity of tablet 25 02:00: First dose [place] mg 00 on Wed [facility] 10/02/22 at [place] [address], Until Discontinu ed, Routine atorvastati 2023-0 Yes 20mg 20 mg, Univ ers n (LIPITOR) 3-25 Oral, QHS, it y of tablet 20 02:00: First dose [place] mg 00 on Wed [facility] 10/02/22 at [place] [address], Until Discontinu ed, Routine amitriptyli 2023-0 Yes 25mg 25 mg, Univ ers ne (ELAVIL) 3-25 Oral, QHS, it y of tablet 25 02:00: First dose [place] mg 00 on Wed [facility] 10/02/22 at [place] [address], Until Discontinu ed, Routine traZODone 2023-0 Yes 25mg 25 mg, Univer s (DESYREL) 3-25 Oral, QHS, ity of tablet 25 02:00: First dose [place] mg 00 on Wed [facility] 10/02/22 at [place] [address], Until Discontinu ed, Routine atorvastati 2023-0 Yes 20mg 20 mg, Univ ers n (LIPITOR) 3-25 Oral, QHS, it y of tablet 20 02:00: First dose [place] mg 00 on Wed [facility] 10/02/22 at [place] [address], Until Discontinu ed, Routine amitriptyli 2023-0 Yes 25mg 25 mg, Univ ers ne (ELAVIL) 3-25 Oral, QHS, it y of tablet 25 02:00: First dose [place] mg 00 on Wed [facility] 10/02/22 at [place] [address], Until Discontinu ed, Routine budesonide- 2023-0 Yes 2{puff} 2 Puff, Univers formoteroL 3-25 Inhalation ity of (SYMBICORT) 01:00: , BID, [place] 160-4.5 00 First dose Medica l mcg/actuati on Wed [place] on inhaler 10/02/22 at 2 Puff 2000, Until Discontinu ed, Routine budesonide- 2023-0 Yes 2{puff} 2 Puff, Univers formoteroL 3-25 Inhalation ity of (SYMBICORT) 01:00: , BID, [place] 160-4.5 00 First dose Medica l mcg/actuati on Wed Branch on inhaler 10/02/22 at 2 Puff 2000, Until Discontinu ed, Routine hydralAZINE No 5mg 5 mg, Slow Univers (APRESOLINE 10-03 IV Push, ity of ) injection 00:00: 00:29 ONCE, 1 [place] 5 mg 00 :00 dose, On Medical Wed Branch 10/02/22 at 1900, STAT vancomycin No 15mg/kg 1,500 mg Univers (VANCOCIN) 10-02 (rounded ity of 1,500 mg in 23:00: 12:44 from [place] NaCl 0.9% 00 :35 1,918.5 mg Medi [place] (NS) 500 mL = 15 mg/kg Br anch VIAL-MATE ?127.9 IV kg), IV piggyback Piggyback, Q12H ABX, 14 doses, First dose on Wed10/02/22 at 1800, Last dose on Wed10/09/22 at 0600, Administer over 90 Minutes, 500 mL
R adi for Anti-Infec tive: Documented Infection< br>Documen marco antonio Infection Site: Wound
D uration of Therapy: 7 days carvediloL Yes 25mg 25 mg, Unive rs (COREG) 3-24 Oral, BID ity of tablet 25 22:00: MEALS, [place] mg 00 First dose Medical on Wed Branch 10/02/22 at 1700, Until Discontinu ed, Routine carvediloL Yes 25mg 25 mg, Unive rs (COREG) 3-24 Oral, BID ity of tablet 25 22:00: MEALS, [place] mg 00 First dose Medical on Wed Branch 10/02/22 at 1700, Until Discontinu ed, Routine enoxaparin No 40mg 40 mg, Univ ers (LOVENOX) 10-02 Subcutaneo ity of injection 22:00: 07:48 us, DAILY, [place] 40 mg 00 :37 First dose Medical on Wed Branch 10/02/22 at 1700, Until Discontinu ed, Routine potassium 2023-0 2023- No 20meq 20 mEq, IV Univers chloride in 10-02 Piggyback, i ty of water (KCL) 20:30: 00:16 ONCE, 1 [place] 20 mEq/100 00 :00 dose, On Medic al mL RTU IVPB Wed Branch 20 mEq 10/02/22 at 1530, 100 mL magnesium 2022- No 4g 4 g, IV Univ ers sulfate in 10-02 Piggyback, it y of water 4 19:45: 21:29 at 25 [place] gram/50 mL 00 :00 mL/hr Medical (8 %) IV Administer Branc h Piggyback 4 over 120 g Minutes, ONCE, 1 dose, On Wed10/02/22 at 1445, Routine perflutren 2022- No [id number] 2mL 2 mL, IV Univers lipid 10-02 Push, ity of microsphere 19:30: 19:30 ONCE, 1 [place] 00 :00 dose, On Medical (DEFINITY) Fri Branch injection 2 10/02/22 at mL 1430, Routine iron 2022- No 300mg 300 mg, IV Unive rs sucrose 10-02 Infusion, ity of (VENOFER) 19:00: 21:54 ONCE, [place] 300 mg in 00 :00 Administer Medi [place] NaCl 0.9% over 2.5 Branch (NS) 250 mL Hours, On infusion 10/02/22 at 1400, For 1 dose hydrOXYzine 2022-0 Yes 25mg 25 mg, Univ ers (ATARAX) 10-02 Oral, ity of tablet 25 17:05: Q6HPRN, [place] mg 32 Starting Medical on Wed Branch 10/02/22 at 1205, Until Discontinu ed, Routine, Anxiety hydrOXYzine 0 Yes 25mg 25 mg, Univ ers (ATARAX) - Oral, ity of tablet 25 17:05: Q6HPRN, [place] mg 32 Starting Medical on Wed Branch 10/02/22 at 1205, Until Discontinu ed, Routine, Anxiety bumetanide 0 2022- No 2mg 2 mg, Slow Univers (BUMEX) 10-02 IV Push, ity of injection 2 16:30: 15:59 BID, First [place] mg 00 :11 dose on Medical Wed Branch 10/02/22 at 1130, Until Discontinu ed, Routine SERTraline 2023-0 Yes 25mg 25 mg, Unive rs (ZOLOFT) 3-24 Oral, ity of tablet 25 14:00: DAILY, [place] mg 00 First dose Medical on Wed Branch 10/02/22 at 0900, Until Discontinu ed, Routine aspirin 2023-0 Yes 81mg 81 mg, Univers chewable 3-24 Oral, ity of tablet 81 14:00: DAILY, [place] mg 00 First dose Medical on Wed Branch 10/02/22 at 0900, Until Discontinu ed, Routine amiodarone 2023-0 Yes 200mg 200 mg, Uni vers (PACERONE) 3-24 Oral, ity of tablet 200 14:00: DAILY, [place] mg 00 First dose Medical on Wed [place] 10/02/22 at 0900, Until Discontinu ed, Routine allopurinoL 2023-0 Yes 100mg 100 mg, Un kayla (ZYLOPRIM) 3-24 Oral, ity of tablet 100 14:00: DAILY, [place] mg 00 First dose Medical on Wed Branch 10/02/22 at 0900, Until Discontinu ed, Routine SERTraline 2023-0 Yes 25mg 25 mg, Unive rs (ZOLOFT) 3-24 Oral, ity of tablet 25 14:00: DAILY, [place] mg 00 First dose Medical on Wed Branch 10/02/22 at 0900, Until Discontinu ed, Routine aspirin 2023-0 Yes 81mg 81 mg, Univers chewable 3-24 Oral, ity of tablet 81 14:00: DAILY, [place] mg 00 First dose Medical on Wed Branch 10/02/22 at 0900, Until Discontinu ed, Routine amiodarone 2023-0 Yes 200mg 200 mg, Uni vers (PACERONE) 3-24 Oral, ity of tablet 200 14:00: DAILY, [place] mg 00 First dose Medical on Wed Branch 10/02/22 at 0900, Until Discontinu ed, Routine allopurinoL 2023-0 Yes 100mg 100 mg, Un kayla (ZYLOPRIM) 3-24 Oral, ity of tablet 100 14:00: DAILY, [place] mg 00 First dose Medical on Wed Branch 10/02/22 at 0900, Until Discontinu ed, Routine spironolact 2023-0 2023- No 25mg 25 mg, [facility] one 10-02 Oral, ity of (ALDACTONE) 14:00: 11:26 DAILY, [place] tablet 25 00 :37 First dose [place] on Wed Branch 10/02/22 at 0900, Until Discontinu ed, Routine losartan 2022- No 100mg 100 mg, [facility] (COZAAR) 10-02 Oral, ity of tablet 100 14:00: 15:15 [place]ILY[place]09 First dose Medical on Wed [facility] 10/02/22 at 0900, Until Discontinu ed, Routine albuterol Yes 2.5mg 2.5 mg, [facility] (PROVENTIL) 10-02 Inhalation it y of 2.5 mg /3 13:41: , Q4HPRN, [place] as mL (0.083 49 Starting Medica l %) on Wed nebulizer 10/02/22 at solution 0841, 2.5 mg Until Discontinu ed, Routine, Shortness of Breath, Wheezing albuterol Yes 2.5mg 2.5 mg, [facility] ers (PROVENTIL) 10-02 Inhalation it y of 2.5 mg /3 13:41: , Q4HPRN, [place] as mL (0.083 49 Starting Medica l %) on Wed [place] nebulizer 10/02/22 at solution 0841, 2.5 mg Until Discontinu ed, Routine, Shortness of Breath, Wheezing acetaminoph Yes 650mg 650 mg, Un kayla en 10-02 Oral, ity of (TYLENOL) 13:17: Q6HPRN, [place] tablet 650 34 Starting Medic al mg on Wed Branch 10/02/22 at 0817, Until Discontinu ed, Routine, Pain (scale 1-3) acetaminoph 0 Yes 650mg 650 mg, Un kayla en 10-02 Oral, ity of (TYLENOL) 13:17: Q6HPRN, [place] tablet 650 34 Starting Medic al mg on Wed Branch 10/02/22 at 0817, Until Discontinu ed, Routine, Pain (scale 1-3) valsartan-h Yes 1{tbl} Take 1 Un kayla ydrochlorot 3-24 tablet by ity of hiazide 12:07: mouth in [place] 320-25 mg 11 the Medical per tablet morning. Branc h tiZANidine 0 Yes 4mg Take 1 Unive rs 4 mg tablet 3-24 tablet by ity of 12:07: mouth [place] [id number] every 6 Medical (six) Branch hours as needed. Magnesium 0 Yes Take by Unive rs 250 mg Tab 3-24 mouth. ity of 12:07: [address] Branch OMEGA-3 Yes Take by Univers FATTY ACIDS 3-24 mouth. ity of ORAL 12:07: [address] multivitami Yes Take by Uni vers n,tx-minera 3-24 mouth. ity of ls 12:07: [place] (VITAMINS Medical AND Branch MINERALS) tablet cholecalcif Yes 1000U Take 1 Uni vers garcia, 3-24 tablet by ity of vitamin D3, 12:07: [place]. [place] 25 mcg Medical (1,000 Branch unit) tablet fluocinonid Yes Apply to Un kayla e 0.05 % 3-24 area(s). ity of ointment 12:07: [address] nitroglycer Yes .4mg Place 0.4 U nivers in 0.4 mg 3-24 mg under ity of sublingual 12:07: the [place] tablet tongue. [facility] Branch zinc 0 Yes 220mg Take 220 Univers sulfate 220 3-24 mg by ity of (50) mg 12:07: mouth. [place] capsule [address] [place] [address] Branch budesonide- Yes 2{puff} Inhale 2 Univers formoteroL 3-24 Puffs. ity of 160-4.5 12:07: [place] mcg/actuati Medical on inhaler Branch hydrALAZINE 0 Yes 25mg Take 25 mg Univers 25 mg 3-24 by mouth. ity of tablet 12:07: [address] hydrOXYzine 0 Yes 25mg Take 25 mg Univers 25 mg 3-24 by mouth. ity of tablet 12:07: [address] cloniDINE 2022-0 2023- No .2mg Take 0.2 Uni vers (CATAPRES) 3-24 03-24 mg by ity of 0.2 mg 12:07: 00:00 mouth 2 [place] tablet 11 :00 (two) Medical times Branch daily. lisinopril 2022- No 40mg Take 40 mg Univers (PRINIVIL,Z 10-02 by mouth ity of ESTRIL) 40 12:07: 00:00 [place]. [place] mg tablet 11 :00 Medical Branch Potassium 2022- No Take by Univ ers (POTASSIUM- 10-02 mouth. ity o f 99) 99 mg 12:07: 00:00 [place] Tab 11 :00 Medical Branch FLAXSEED 2022- No Take by Unive rs OIL (OMEGA 10-02 mouth. ity of 3 ORAL) 12:07: 00:00 [place] 11 :00 Medical Branch MULTIVITS-M 2022- No Take by Un kayla IN/FA/CA 10-02 mouth. ity of CARB/VIT K 12:07: 00:00 [place] (ONE-A-DAY 11 :00 Medical WOMEN'S 50+ Branch ORAL) gabapentin 2022- No 600mg Take 600 U nivers 300 mg 10-0224 mg by ity of capsule 12:07: :00 mouth 3 [place] 11 :00 (three) Medical times Branch daily. furosemide 2022- No 20mg Take 20 mg Univers 20 mg 10-02 by mouth ity of tablet 12:07: 00:00 at [place] 11 :00 bedtime. Medical Branch HYDROcodone 2022- No 1{tbl} Take 1 U nivers -acetaminop 10-02 tablet by it y of hen 10-325 12:07: 00:00 mouth 2 [place] mg tablet 11 :00 (two) Medical times Branch daily. Oxycodone 2022- No Take by Univ ers 10 mg Tab 10-02 mouth 3 ity of 12:07: 00:00 (three) [place] 11 :00 times Medical daily. Branch AMOXICILLIN 2022- No Take by Un kayla /POTASSIUM 10-02 mouth 2 ity o f CLAV 12:07: 00:00 (two) [place] (AUGMENTIN 11 :00 times Medical ORAL) daily. Branch ibuprofen No 400mg Take 400 Un kayla 400 mg 10-02 mg by ity of tablet 12:07: 00:00 mouth. [place] : Medical Branch levoFLOXaci 2022- No Take by Un kayla n 250 mg/10 10-02 mouth. ity o f mL solution 12:07: 00:00 [place] : Medical Branch OMEGA-3S-DH 2022- No Take by Un kayla A-EPA-FISH 10-02 mouth. ity of OIL ORAL 12:07: 00:00 [place] 11 :00 Medical Branch vancomycin 2022- No 1.25mg Inject Un kayla HCL in 10-02 1.25 mg ity of water 100 12:07: 00:00 intravenou [place] mg/mL Soln 11 :00 sly. Medical Branch Acetaminoph 2022- No Take by Un kayla en 500 mg 10-02 mouth. ity of Cap 12:07: 00:00 [place] : [facility] Branch acetaminoph 2022- No 1{tbl} Take 1 U nivers en-codeine 10-02 tablet by ity of 300-30 mg 12:07: 00:00 mouth. [place] tablet : [facility] Branch aspirin-jersey No 81mg Take 81 mg Univers cium 10-02 by mouth. ity of carbonate 12:07: 00:00 [place] 81 mg-300 11 : [facility] calcium(777 mg) Tab ceFEPIme No 1g Inject 1 g Un kayla (MAXIPIME) 10-02 intravenou it y of 1 gram 12:07: 00:00 sly. [place] injection :00 Medical Branch clindamycin 2022- No 300mg Take 300 Univers 300 mg 10-02 mg by ity of capsule 12:07: 00:00 mouth. [place] 11 :00 [facility] Branch collagenase 2022- No Apply to U nivers 250 10-02 area(s). ity of unit/gram 12:07: 00:00 [place] ointment 11 :00 Medical Branch folic acid 2022- No Take by Uni vers 0.8 mg Cap 10-02-24 mouth. ity of 12:: :00 [place] : Medical Branch levoFLOXaci 2022- No 500mg Take 500 Univers n 500 mg 10-02-24 mg by ity of tablet 12:07: 00:00 mouth. [place] : Medical Branch KCL 10 mEq 2022- No 10meq Take 10 Un kayla tablet 10-02-24 mEq by ity of 12:07: 00:00 mouth. [place] : Medical Branch VITAMIN B 2022- No 1{tbl} Take 1 Uni vers COMPLEX 10-02-24 tablet by ity of ORAL 12:07: 00:00 mouth. [place] : Medical Branch budesonide- 2022- No 2{puff} Inhale 2 Univers formoteroL 10-02-24 Puffs. ity of 80-4.5 12:: : [place] mcg/actuati : Medical on inhaler Branch cloNIDine 2022- No .1mg Take 0.1 Uni vers 0.1 mg 10-02-24 mg by ity of tablet 12:: 00:00 mouth 3 [place] 11 :00 (three) Medical times Branch daily. gabapentin 2022- No 400mg Take 400 U nivers 400 mg 10-02-24 mg by ity of capsule 12:07: 00:00 mouth. [place] : Medical Branch lidocaine 5 2022- No Apply to U nivers % ointment 10-02-24 area(s). ity of 12:07: 00:00 [place] :00 Medical Branch triamcinolo 2022- No Apply to U nivers ne 10-02-24 area(s). ity of acetonide 12:07: 00:00 [place] 0.1 % cream 11 :00 Medical Branch cloniDINE 2022-0 2022- No .2mg Take 0.2 Uni vers (CATAPRES) 10-02-24 mg by ity of 0.2 mg 12:07: 00:00 mouth 2 [place] tablet 11 :00 (two) Medical times Branch daily. lisinopril 2022- No 40mg Take 40 mg Univers (PRINIVIL,Z 10-02 by mouth ity of ESTRIL) 40 12:07: 00:00 [place]. [place] mg tablet :00 Medical Branch Potassium 2022- No Take by Univ ers (POTASSIUM- 10-02 mouth. ity o f 99) 99 mg 12:07: 00:00 [place] Tab 11 :00 Medical Branch FLAXSEED 2022- No Take by [facility] OIL (OMEGA 10-02 mouth. ity of 3 ORAL) 12:07: 00:00 [place] 11 :00 Medical Branch MULTIVITS-M 2022- No Take by Un kayla IN/FA/CA 10-02 mouth. ity of CARB/VIT K 12:07: 00:00 [place] (ONE-A-DAY 11 :00 Medical WOMEN'S 50+ Branch ORAL) gabapentin 2022- No 600mg Take 600 U nivers 300 mg 10-02 mg by ity of capsule 12:07: 00:00 mouth 3 [place] 11 :00 (three) Medical times Branch daily. furosemide 2022- No 20mg Take 20 mg Univers 20 mg 10-02 by mouth ity of tablet 12:07: 00:00 at [place] 11 :00 bedtime. Medical Branch HYDROcodone 2022- No 1{tbl} Take 1 U nivers -acetaminop 10-02 tablet by it y of hen 10-325 12:07: 00:00 mouth 2 [place] mg tablet 11 :00 (two) Medical times Branch daily. Oxycodone 2022- No Take by Univ ers 10 mg Tab 10-02 mouth 3 ity of 12:07: 00:00 (three) [place] 11 :00 times Medical daily. Branch AMOXICILLIN 2022-0 2022- No Take by Un kayla /POTASSIUM 10-02 mouth 2 ity o f CLAV 12:07: 00:00 (two) [place] (AUGMENTIN 11 :00 times Medical ORAL) daily. Branch ibuprofen 2022- No 400mg Take 400 Un kayla 400 mg 10-02 mg by ity of tablet 12:07: 00:00 mouth. [place] : [facility] Branch levoFLOXaci 2022- No Take by Un kayla n 250 mg/10 10-02 mouth. ity o f mL solution 12:07: 00:00 [place] 11 : [facility] OMEGA-3S-DH 2022- No Take by Un kayla A-EPA-FISH 10-02 mouth. ity of OIL ORAL 12:07: 00:00 [place] : [facility] Branch vancomycin 2022- No 1.25mg Inject Un kayla HCL in 10-02 1.25 mg ity of water 100 12:07: 00:00 intravenou [place] mg/mL Soln 11 : sly. [facility] Branch Acetaminoph 2022- No Take by Un kayla en 500 mg 10-02 mouth. ity of Cap 12:07: :00 : [facility] acetaminoph 2022- No 1{tbl} Take 1 U nivers en-codeine 10-02 tablet by ity of 300-30 mg 12:07: 00:00 mouth. [place] tablet : [facility] aspirin-jersey 2022- No 81mg Take 81 mg Univers cium 10-02 by mouth. ity of carbonate 12:07: 00:00 [place] 81 mg-300 11 :[address] [facility] calcium(777 mg) Tab ceFEPIme 2022- No 1g Inject 1 g Un kayla (MAXIPIME) 10-02 intravenou it y of 1 gram 12:07: 00:00 sly. [place] injection : [facility] Branch clindamycin 2022- No 300mg Take 300 Univers 300 mg 10-02 mg by ity of capsule 12:07: 00:00 mouth. [place] 11 : [facility] collagenase 2022- No Apply to U nivers 250 10-02 area(s). ity of unit/gram 12:07: 00:00 [place] ointment :00 [facility] Branch folic acid 2022- No Take by Uni vers 0.8 mg Cap 10-02-24 mouth. ity of 12:07: 00:00 [place] 11 : Medical Branch levoFLOXaci 2022- No 500mg Take 500 Univers n 500 mg 10-02-24 mg by ity of tablet 12:07: 00:00 mouth. [place] 11 :00 Medical Branch KCL 10 mEq 2022- No 10meq Take 10 Un kayla tablet 10-02-24 mEq by ity of 12:07: 00:00 mouth. [place] 11 : Medical Branch VITAMIN B 2022- No 1{tbl} Take 1 Uni vers COMPLEX 10-02-24 tablet by ity of ORAL 12:07: 00:00 mouth. [place] 11 : Medical Branch budesonide- 2022- No 2{puff} Inhale 2 Univers formoteroL 10-02-24 Puffs. ity of 80-4.5 12:07: : [place] mcg/actuati 11 : Medical on inhaler Branch cloNIDine 2022- No .1mg Take 0.1 Uni vers 0.1 mg 10-02-24 mg by ity of tablet 12:07: 00:00 mouth 3 [place] 11 :00 (three) Medical times Branch daily. gabapentin 2022- No 400mg Take 400 U nivers 400 mg 10-02-24 mg by ity of capsule 12:07: 00:00 mouth. [place] 11 : Medical Branch lidocaine 5 2022- No Apply to U nivers % ointment 10-02-24 area(s). ity of 12:07: :00 [place] : Medical Branch triamcinolo 2022- No Apply to U nivers ne 10-02-24 area(s). ity of acetonide 12:: : [place] 0.1 % cream : Medical Branch carvedilol Yes 25mg Take 1 Unive rs (COREG) 25 3-24 tablet by ity of mg tablet 08:53: [place] 32 the Medical morning Branch and 1 tablet in the evening. Take with meals. aspirin 81 2022-0 Yes 81mg Take 1 Unive rs mg chewable 3-24 tablet by ity of tablet 08:53: mouth in [place] [id number] the Medical morning. Branch amitriptyli 3-0 Yes 25mg Take 1 Univ ers ne 25 mg 3-24 tablet by ity of tablet 08:53: mouth. [address] Branch levoFLOXaci 3-0 Yes 500mg QD Take 500 M ethodi n 2-[address] (LEVAQUIN) 14:02: mouth Hospit a 500 MG 15 daily. For l tablet 10 days. Start date: 02/21/2017 levoFLOXaci 3-0 Yes 500mg QD Take 500 M ethodi n 2-[address] (LEVAQUIN) 14:02: mouth Hospit a 500 MG 15 daily. For l tablet 10 days. Start date: 02/21/2017 collagenase 2022-0 2022- No Q24H Apply 1 Me thodi (SANTYL) 2-03 02-[address] ointment 14:02: 00:00 n Hospita 15 :00 topically l daily as needed. collagenase 2022-0 2022- No 1{appli Q24H Apply 1 Methodi (SANTYL) 2-03 02-03 cation} applicatio s t ointment 14:02: 00:00 n Hospita 15 :00 topically l daily as needed. amitriptyli 3-0 Yes 25mg QD Take 1 Meth urvashi ne (ELAVIL) 2-03 tablet (25 st 25 MG 14:01: mg total) Hospita tablet 48 by mouth l nightly. amitriptyli 3-0 Yes 25mg QD Take 1 Meth urvashi ne (ELAVIL) 2-03 tablet (25 st 25 MG 14:01: mg total) Hospita tablet 48 by mouth l nightly. levalbutero 3-0 Yes .63mg Q6H Take 3 mL Methodi l (XOPENEX) 2-03 (0.[address] 0.63 mg/3 13:37: total) by Hos romeo mL 13 nebulizati l nebulizer on every 6 solution (six) hours as needed for wheezing. losartan 3-0 Yes 100mg QD Take 1 Method i (COZAAR) 2-[address] 100 MG 13:37: (100 mg Hospita tablet 13 total) by l mouth daily. magnesium 2023-0 Yes 250mg QD Take 1 Metho di oxide 250 2-[address] mg 13:37: (250 mg Hospita magnesium 13 total) by l tablet mouth daily. mupirocin 2023-0 Yes Q.5D Apply Methodi (BACTROBAN) 2-[address] 2 % 13:37: 2 (two) Hospita ointment 13 times a l day. rivaroxaban 2023-0 Yes 15mg QD Take 15 mg Methodi (XARELTO) 2-[address] 10 mg 13:37: daily. Hospita tablet 13 l sertraline 2023-0 Yes 100mg QD Take 1 Meth urvashi (ZOLOFT) 2-[address] 100 MG 13:37: (100 mg Hospita tablet 13 total) by l mouth daily. silver 2023-0 Yes QD Apply Methodi sulfadiazin 2-[address] e 13:37: daily. Hospita (SILVADENE) 13 l 1 % cream spironolact 2023-0 Yes 25mg QD Take 1 Meth urvashi one 2-03 tablet (25 st (ALDACTONE) 13:37: mg total) H ospita 25 MG 13 by mouth l tablet daily. SUMATRIPTAN 2023-0 Yes 100mg Q.5D Take 100 M ethodi SUCCINATE 2-[address] ORAL 13:37: mouth 2 Hospita 13 (two) l times a day as needed. topiramate 2023-0 Yes 25mg Q.5D Take 1 Metho di (TOPAMAX) 2-03 tablet (25 st 25 MG 13:37: mg total) Hospita tablet 13 by mouth 2 l (two) times a day. Take 2 tablets by mouth in the morning and tablets in the evening. traZODone 2023-0 Yes 50mg QD Take 1 Method i (DESYREL) 2-03 tablet (50 st 50 MG 13:37: mg total) Hospita tablet 13 by mouth l nightly. levalbutero 2023-0 Yes .63mg Q6H Take 3 mL Methodi l (XOPENEX) 2-03 (0.[address] 0.63 mg/3 13:37: total) by Hos romeo mL 13 nebulizati l nebulizer on every 6 solution (six) hours as needed for wheezing. losartan 2023-0 Yes 100mg QD Take 1 Method i (COZAAR) 2-[address] 100 MG 13:37: (100 mg Hospita tablet 13 total) by l mouth daily. magnesium 2023-0 Yes 250mg QD Take 1 Metho di oxide 250 2-[address] mg 13:37: (250 mg Hospita magnesium 13 total) by l tablet mouth daily. mupirocin 2023-0 Yes Q.5D Apply Methodi (BACTROBAN) 2-[address] 2 % 13:37: 2 (two) Hospita ointment 13 times a l day. rivaroxaban 2023-0 Yes 15mg QD Take 15 mg Methodi (XARELTO) 2-[address] 10 mg 13:37: daily. Hospita tablet 13 l sertraline 2023-0 Yes 100mg QD Take 1 Meth urvashi (ZOLOFT) 2-[address] 100 MG 13:37: (100 mg Hospita tablet 13 total) by l mouth daily. silver 2023-0 Yes QD Apply Methodi sulfadiazin 2-[address] e 13:37: daily. Hospita (SILVADENE) 13 l 1 % cream spironolact 2023-0 Yes 25mg QD Take 1 Meth urvashi one 2-03 tablet (25 st (ALDACTONE) 13:37: mg total) H ospita 25 MG 13 by mouth l tablet daily. SUMATRIPTAN 2023-0 Yes 100mg Q.5D Take 100 M ethodi SUCCINATE 2-[address] ORAL 13:37: mouth 2 Hospita 13 (two) l times a day as needed. topiramate 2023-0 Yes 25mg Q.5D Take 1 Metho di (TOPAMAX) 2-03 tablet (25 st 25 MG 13:37: mg total) Hospita tablet 13 by mouth 2 l (two) times a day. Take 2 tablets by mouth in the morning and tablets in the evening. traZODone 2023-0 Yes 50mg QD Take 1 Method i (DESYREL) 2-03 tablet (50 st 50 MG 13:37: mg total) Hospita tablet 13 by mouth l nightly. tiZANidine 2023-0 Yes 4mg Q8H Take 1 Metho di (ZANAFLEX) 2-03 tablet (4 st 4 MG tablet 13:37: mg total) H ospita 12 by mouth l every 8 (eight) hours as needed. tiZANidine 2023-0 Yes 4mg Q8H Take 1 Metho di (ZANAFLEX) 2-03 tablet (4 st 4 MG tablet 13:37: mg total) H ospita 12 by mouth l every 8 (eight) hours as needed. ALPRAZolam 2023-0 Yes .5mg QD Take 1 Metho di (XANAX) 0.5 2-[address] MG tablet 13:19: (0.5 mg Hospi ta 56 total) by l mouth nightly as needed for anxiety. amIODarone 2023-0 Yes 200mg QD Take 1 Meth urvashi (PACERONE) 2-[address] 200 MG 13:19: (200 mg Hospita tablet 56 total) by l mouth daily. amLODIPine 2023-0 Yes 10mg QD Take 1 Metho di (NORVASC) 2-03 tablet (10 st 10 mg 13:19: mg total) Hospita tablet 56 by mouth l daily. clonIDINE 2023-0 Yes .1mg QD Take 1 Method i (CATAPRES) 2-[address] 0.1 MG 13:19: (0.1 mg Hospita tablet 56 total) by l mouth daily. clopidogreL 2023-0 Yes 75mg QD Take 1 Meth urvashi (PLAVIX) 75 2-03 tablet (75 st mg tablet 13:19: mg total) Hos romeo 56 by mouth l daily. ferrous 2023-0 Yes 325mg QD Take 1 Methodi sulfate 325 2-[address] (65 FE) MG 13:19: (325 mg Hosp esau tablet 56 total) by l mouth daily with breakfast. folic acid 2023-0 Yes 1mg QD Take 1 Metho di (FOLVITE) 1 2-03 tablet (1 st MG tablet 13:19: mg total) Hos romeo 56 by mouth l daily. hydrALAZINE 2023-0 Yes 50mg Q.[id number] Take 1 Methodi (APRESOLINE 2-03 [id number] tablet (50 st ) 50 MG 13:19: 3D mg total) Hospi ta tablet 56 by mouth 3 l (three) times a day. predniSONE 2023-0 Yes 10mg Take 1 Metho di (DELTASONE) 2-03 tablet (10 st 10 mg 13:19: mg total) Hospita tablet 56 by mouth l as needed. ALPRAZolam 2023-0 Yes .5mg QD Take 1 Metho di (XANAX) 0.5 2-[address] MG tablet 13:19: (0.5 mg Hospi ta 56 total) by l mouth nightly as needed for anxiety. amIODarone 2023-0 Yes 200mg QD Take 1 Meth urvashi (PACERONE) 2-[address] 200 MG 13:19: (200 mg Hospita tablet 56 total) by l mouth daily. amLODIPine 2023-0 Yes 10mg QD Take 1 Metho di (NORVASC) 2-03 tablet (10 st 10 mg 13:19: mg total) Hospita tablet 56 by mouth l daily. clonIDINE 2023-0 Yes .1mg QD Take 1 Method i (CATAPRES) 2-[address] 0.1 MG 13:19: (0.1 mg Hospita tablet 56 total) by l mouth daily. clopidogreL 3-0 Yes 75mg QD Take 1 Meth urvashi (PLAVIX) 75 2-03 tablet (75 st mg tablet 13:19: mg total) Hos romeo 56 by mouth l daily. ferrous 2023-0 Yes 325mg QD Take 1 Methodi sulfate 325 2-[address] (65 FE) MG 13:19: (325 mg Hosp esau tablet 56 total) by l mouth daily with breakfast. folic acid 2022-0 Yes 1mg QD Take 1 Metho di (FOLVITE) 1 2-03 tablet (1 st MG tablet 13:19: mg total) Hos romeo 56 by mouth l daily. hydrALAZINE 2022-0 Yes 50mg Q.[id number] Take 1 Methodi (APRESOLINE 2-03 [id number] tablet (50 st ) 50 MG 13:19: 3D mg total) Hospi ta tablet 56 by mouth 3 l (three) times a day. predniSONE 2023-0 Yes 10mg Take 1 Metho di (DELTASONE) 2-03 tablet (10 st 10 mg 13:19: mg total) Hospita tablet 56 by mouth l as needed. allopurinol 2023-0 Yes 300mg QD Take 1 Met hodi (ZYLOPRIM) 2-[address] 300 MG 13:09: (300 mg Hospita tablet 11 total) by l mouth every evening. carvedilol 0 Yes 25mg Q.5D Take 1 Metho di (COREG) 25 2-03 tablet (25 st MG tablet 13:09: mg total) Hos romeo 11 by mouth 2 l (two) times a day with meals. budesonide- 0 Yes 2{puff} Q.5D Inhale 2 Methodi formoterol 2-[address] (SYMBICORT) 13:09: (two) Hospi ta 80-4.5 11 times a l mcg/actuati day. on inhaler nitroglycer [address] 1 Met hodi in 2-[address] (NITROSTAT) 13:09: (0.4 mg Hos romeo 0.4 MG SL 11 total) l tablet under the tongue every 5 (five) minutes as needed for chest pain. aspirin 0 Yes 81mg QD Take 1 Methodi (ECOTRIN) 2-03 tablet (81 st 81 MG 13:09: mg total) Hospita enteric 11 by mouth l coated daily. tablet b complex 0 Yes 1{tbl} QD Take 1 Meth urvashi vitamins 2-[address] tablet 13:09: mouth Hospita 11 daily. l cholecalcif 0 Yes 1000U QD Take 1 Met hodi garcia, 2-[address] vitamin D3, 13:09: (1,000 Hosp esau (VITAMIN 11 Units l D3) 1,000 total) by unit tablet mouth daily. triamcinolo 0 Yes Q24H Apply 1 Met hodi ne 2-[address] (KENALOG) 13:09: n Hospita 0.1 % 11 topically l ointment daily as needed. furosemide 0 Yes 80mg QD Take 4 Metho di (LASIX) 20 2-[address] mg tablet 13:09: (80 mg Hospit a 11 total) by l mouth daily. valsartan-h 2022-0 Yes .5{tbl} QD Take 0.5 Methodi ydrochlorot 2-[address] hiazide 13:09: mouth Hospita (DIOVAN-HCT 11 daily. l ) 320-25 mg per tablet multivitami 2022-0 Yes 1{tbl} QD Take 1 Me thodi n 2-[address] (THERAGRAN) 13:09: mouth Hospi ta tablet 11 daily. l zinc 2023-0 Yes 220mg QD Take 220 Methodi sulfate 2-[address] (ZINCATE) 13:09: mouth Hospita 220 (50) mg 11 daily. l capsule fluocinonid 2023-0 Yes Q24H Apply 1 Met hodi e (LIDEX) 2-[address] 0.05 % 13:09: n Hospita ointment 11 topically l daily as needed. gabapentin 2023-0 Yes 600mg Q.[id number] Take 2 Methodi (NEURONTIN) 2-[id number] 300 mg 13:09: 3D (600 mg Hospita capsule 11 total) by l mouth 3 (three) times a day. HYDROcodone 2023-0 Yes 1{tbl} Q8H Take 1 Me thodi -acetaminop 2-[address] hen (NORCO) 13:09: mouth Hospi ta 10-325 mg 11 every 8 l per tablet (eight) hours as needed for moderate pain. lidocaine 2023-0 Yes Q24H Apply 1 Metho di (XYLOCAINE) 2-[address] 5 % 13:09: n Hospita ointment 11 topically l daily as needed for mild pain. potassium 2023-0 Yes 10meq QD Take 1 Metho di chloride 2-03 tablet (10 st (K-DUR,KLOR 13:09: mEq total) Hospita -CON) 10 11 by mouth l MEQ CR daily. tablet hydrOXYzine 2023-0 Yes 25mg Q8H Take 1 Meth urvashi (ATARAX) 25 2-03 tablet (25 st MG tablet 13:09: mg total) Hos romeo 11 by mouth l every 8 (eight) hours as needed for itching. allopurinol 2023-0 Yes 300mg QD Take 1 Met hodi (ZYLOPRIM) 2-[address] 300 MG 13:09: (300 mg Hospita tablet 11 total) by l mouth every evening. carvedilol 2023-0 Yes 25mg Q.5D Take 1 Metho di (COREG) 25 2-03 tablet (25 st MG tablet 13:09: mg total) Hos romeo 11 by mouth 2 l (two) times a day with meals. budesonide- 0 Yes 2{puff} Q.5D Inhale 2 Methodi formoterol 2-[address] (SYMBICORT) 13:09: (two) Hospi ta 80-4.5 11 times a l mcg/actuati day. on inhaler nitroglycer [address] 1 Met hodi in 2-[address] (NITROSTAT) 13:09: (0.4 mg Hos romeo 0.4 MG SL 11 total) l tablet under the tongue every 5 (five) minutes as needed for chest pain. aspirin 0 Yes 81mg QD Take 1 Methodi (ECOTRIN) 2-03 tablet (81 st 81 MG 13:09: mg total) Hospita enteric 11 by mouth l coated daily. tablet b complex Yes 1{tbl} QD Take 1 Meth urvashi vitamins 2-[address] tablet 13:09: mouth Hospita 11 daily. l cholecalcif Yes 1000U QD Take 1 Met hodi garcia, 2-[address] vitamin D3, 13:09: (1,000 Hosp esau (VITAMIN 11 Units l D3) 1,000 total) by unit tablet mouth daily. triamcinolo Yes 1{appli Q24H Apply 1 Methodi ne 2-03 cation} applicatio st (KENALOG) 13:09: n Hospita 0.1 % 11 topically l ointment daily as needed. furosemide 0 Yes 80mg QD Take 4 Metho di (LASIX) 20 2-[address] mg tablet 13:09: (80 mg Hospit a 11 total) by l mouth daily. valsartan-h 0 Yes .5{tbl} QD Take 0.5 Methodi ydrochlorot 2-[address] hiazide 13:09: mouth Hospita (DIOVAN-HCT 11 daily. l ) 320-25 mg per tablet multivitami 0 Yes 1{tbl} QD Take 1 Me thodi n 2-[address] (THERAGRAN) 13:09: mouth Hospi ta tablet 11 daily. l zinc 0 Yes 220mg QD Take 220 Methodi sulfate 2-[address] (ZINCATE) 13:09: mouth Hospita 220 (50) mg 11 daily. l capsule fluocinonid 2022-0 Yes 1{appli Q24H Apply 1 Methodi e (LIDEX) 2-03 cation} applicatio s t 0.05 % 13:09: n Hospita ointment 11 topically l daily as needed. gabapentin 2022-0 Yes 600mg Q.[id number] Take 2 Methodi (NEURONTIN) 2-[id number] 300 mg 13:09: 3D (600 mg Hospita capsule 11 total) by l mouth 3 (three) times a day. HYDROcodone 0 Yes 1{tbl} Q8H Take 1 Me thodi -acetaminop 2-[address] hen (NORCO) 13:09: mouth Hospi ta 10-325 mg 11 every 8 l per tablet (eight) hours as needed for moderate pain. lidocaine 2022-0 Yes 1{appli Q24H Apply 1 Me thodi (XYLOCAINE) 2-03 cation} applicatio st 5 % 13:09: n Hospita ointment 11 topically l daily as needed for mild pain. potassium 0 Yes 10meq QD Take 1 Metho di chloride 2-03 tablet (10 st (K-DUR,KLOR 13:09: mEq total) Hospita -CON) 10 11 by mouth l MEQ CR daily. tablet hydrOXYzine 2022-0 Yes 25mg Q8H Take 1 Meth urvashi (ATARAX) 25 2-03 tablet (25 st MG tablet 13:09: mg total) Hos romeo 11 by mouth l every 8 (eight) hours as needed for itching. triamcinolo 2022-0 Yes QD Apply Metho di ne 2-[address] (KENALOG) 00:00: daily. Hospit a 0.1 % 00 Apply to l ointment affected wound as directed triamcinolo 2022-0 Yes QD Apply Metho di ne 2-[address] (KENALOG) 00:00: daily. Hospit a 0.1 % 00 Apply to l ointment affected wound as directed Collagenase 2021-0 Yes Apply 1 James sey 250 UNIT/GM 6-01 applicatio Se ybold apply 08:22: n externally 45 topically Ointment Fluocinonid 2022-0 Yes Apply 1 James sey e 0.05 % 6- applicatio Seybo ld apply 08:22: n externally 45 topically Ointment Turmeric Yes Take by Karmen 500 MG oral 6- mouth Seybold Cap 08:22: 45 SUPER B Yes Take by Karmen COMPLEX/C 6-01 mouth Seybold OR 08:22: 45 Calcium-Mag Yes Take by James gallegos nesium-Christina 6- mouth Seybold min D 08:22: daily Take (CALCIUM 45 as 1200+D3 OR) directed. Levalbutero Yes 186 .63mg Q.25D Take 0.63 Karmen l HCl 0.63 6- mg by Seybтатьяна MG/3ML 08:22: nebulizati inhalation 45 on every 6 Inhalant hours as Solution needed for wheezing 1 vial per nebulizer PRN for wheezing every 6 hours. Indication s: Wheezing Triamcinolo Yes Apply Kel y ne 6- topically Seybold Acetonide 08:22: 2 times 0.1 % apply 45 daily externally Ointment Trazodone Yes 50mg Take 50 mg Ke lsey HCl 50 MG 6- by mouth Seybol d oral Tablet 08:22: nightly 45 Losartan Yes 100mg Take 100 Aimee ey Potassium 6- mg by Seybold 100 MG oral 08:22: mouth Tablet 45 daily Vitamin E Yes 45ug Take 45 Kelse y 45 MG (100 6- mcg by Seybold UNIT) oral 08:22: mouth 2 Capsule 45 times daily Multiple Yes Take by Karmen Vitamins-Ca 6-01 mouth Seybold lcium 08:22: (ONE-A-DAY 45 WOMENS FORMULA OR) Rivaroxaban Yes 15mg Take 15 mg Karmen 15 MG oral 6-01 by mouth Seybo ld Tablet 08:22: daily 45 SALINE NA Yes by nasal Aimee ey 6-01 route Seybold 08:22: 45 ACETAMINOPH Yes 1{capsu Q.25D Take 1 Karmen EN-CAFF-BUT 6- le} capsule by Se ybold ALBITAL 08:22: mouth 50-325-40 45 every 6 MG oral hours as Capsule needed for pain Alprazolam Yes [id number] .5mg Q.5D Take 1 Karmen 0.5 MG oral 6-01 tablet Seybol d Tablet 00:00: (0.5 mg 00 total) by mouth as needed in the morning and 1 tablet (0.5 mg total) as needed in the evening for anxiety. Atorvastati Yes [id number] 20mg Take 1 Karmen n Calcium 5-27 tablet (20 Seyb old 20 MG oral 00:00: mg total) Tablet 00 by mouth daily Ferrous Yes [id number] 325mg Take 1 Ke lsey Sulfate 5-27 tablet Seybold (Iron) 325 00:00: (325 mg (65 Fe) MG 00 total) by oral Tablet mouth daily (with breakfast) Mupirocin Yes [id number] Apply 1 Karmen (BACTROBAN) 5-23 applicatio Se ybold 2 % apply 00:00: n externally 00 topically Ointment 2 times daily Acetaminoph Yes [id number] 1{tbl} QD Take 1 Karmen en-Codeine 5-06 tablet by Seyb old #3 300-30 00:00: mouth MG oral 00 daily as Tablet needed for pain Allopurinol Yes [id number] 300mg Take 1 Karmen 300 MG oral 5-06 tablet Seybol d Tablet 00:00: (300 mg 00 total) by mouth daily Amiodarone Yes [id number] 200mg Take 1 Karmen HCl 200 MG 5-06 tablet Seybold oral Tablet 00:00: (200 mg 00 total) by mouth daily Amitriptyli Yes [id number] 25mg Take 1 Karmen ne HCl 25 5-06 tablet (25 Seyb old MG oral 00:00: mg total) Tablet 00 by mouth daily Aspirin EC Yes [id number] 81mg Take 1 Karmen 81 MG oral 5-06 tablet (81 Sey bold Tablet 00:00: mg total) Delayed 00 by mouth Response daily Aspirin-Jer[place] Yes [id number] 81mg Take 81 mg Karmen cium 5-06 by mouth Seybold Carbonate 00:00: daily 81-777 MG 00 oral Tablet Atorvastati Yes [id number] 10mg Take 1 Karmen n Calcium 5-06 tablet (10 Seyb old 10 MG oral 00:00: mg total) Tablet 00 by mouth daily B Complex Yes [id number] 1{tbl} Take 1 Karmen Vitamins 5-06 tablet by Seybol d (Vitamin-B 00:00: mouth Complex) 00 daily oral Tablet Budesonide- Yes [id number] 2{puff} Inhale 2 Karmen Formoterol 5-06 puffs into Sey bold Fumarate 00:00: the lungs 160-4.5 00 in the MCG/ACT morning inhalation and 2 Aerosol puffs in the evening. Carvedilol Yes [id number] 25mg Take 1 Karmen 25 MG oral 5-06 tablet (25 Sey bold Tablet 00:00: mg total) 00 by mouth in the morning and 1 tablet (25 mg total) in the evening. Cholecalcif Yes [id number] 1{tbl} Take 1 Karmen garcia 25 MCG 5-06 tablet by Sey bold (1000 UT) 00:00: mouth oral Tablet 00 daily Clonidine Yes [id number] .1mg Take 1 Ke lsey HCl 0.1 MG 5-06 tablet Seybold oral Tablet 00:00: (0.1 mg 00 total) by mouth daily Clopidogrel Yes [id number] 75mg Take 1 Karmen Bisulfate 5-06 tablet (75 Seyb old 75 MG oral 00:00: mg total) Tablet 00 by mouth daily Folic Acid Yes [id number] 1{capsu Take 1 Karmen 0.8 MG oral 5-06 le} capsule by Se ybold Capsule 00:00: mouth 00 daily Gabapentin Yes [id number] 400mg Take 1 Karmen 400 MG oral 5-06 capsule Seybo ld Capsule 00:00: (400 mg 00 total) by mouth 3 times daily Lidocaine 5 0 Yes [id number] Apply 1 Karmen % apply 5-06 applicatio Seybol d externally 00:00: n Ointment 00 topically daily Lidocaine Yes [id number] Apply Ke lsey HCl 4 % 5-06 daily. Seybold apply 00:00: externally 00 Gel Magnesium 2021-0 Yes [id number] 1{tbl} Take 1 Karmen 250 MG oral 5-06 tablet by Sey bold Tablet 00:00: mouth 00 daily Spironolact 2021-0 Yes [id number] 25mg Take 1 Karmen one 25 MG 5-06 tablet (25 Seyb old oral Tablet 00:00: mg total) 00 by mouth daily Sumatriptan 2021-0 Yes [id number] 100mg Q.5D Take 1 Karmen Succinate 5-06 tablet Seybold 100 MG oral 00:00: (100 mg Tablet 00 total) by mouth as needed in the morning and 1 tablet (100 mg total) as needed in the evening. Tizanidine 2021-0 Yes [id number] 4mg Q.[id number] Take 1 Karmen HCl 4 MG 5-06 [id number] capsule (4 Seybold oral 00:00: 3D mg total) Capsule 00 by mouth 3 times daily as needed for muscle spasms Zinc 2021-0 Yes [id number] 220mg Take 1 Kelse y Sulfate 220 5-06 capsule Seybo ld (50 Zn) MG 00:00: (220 mg oral 00 total) by Capsule mouth daily Allopurinol 2021-0 Yes 300mg Take 300 K elsey 300 MG oral 5-03 mg by Seybold Tab 15:30: mouth 19 Aspirin EC 2021-0 Yes 81mg Take 81 mg K elsey 81 MG oral 5-03 by mouth Seybo ld Tablet 15:30: Delayed 19 Response Carvedilol 2021-0 Yes 25mg Take 25 mg K elsey 25 MG oral 5-03 by mouth Seybo ld Tab 15:30: 19 Clonidine 2021-0 Yes .1mg Take 0.1 Aimee ey HCl 0.1 MG 5-03 mg by Seybold oral Tab 15:30: mouth 19 HydrALAZINE 2021-0 Yes 25mg Take 25 mg Karmen HCl 25 MG 5-03 by mouth Seybol d oral Tab 15:30: 19 Valsartan-H 2021-0 Yes 1{tbl} Take 1 Ke lsey ydrochlorot 5-03 tablet by Sey bold hiazide 15:30: mouth 320-25 MG 19 oral Tab Folic Acid 0 Yes Take by Aimee ey 0.8 MG oral 5-03 mouth Seybold Cap 15:30: 19 Tizanidine 2021-0 Yes 4mg Take 4 mg Ke lsey HCl 4 MG 5-03 by mouth Seybold oral Cap 15:30: 19 B Complex 2021-0 Yes 1{tbl} Take 1 Aimee ey Vitamins 5-03 tablet by Seybol d (VITAMIN-B 15:30: mouth COMPLEX) 19 oral Tab Cholecalcif Yes 1000U Take 1,000 Karmen garcia 25 MCG 5-03 units by Seyb old (1000 UT) 15:30: mouth oral Tablet 19 Vitamins/Mi Yes Take by James sey nerals oral 5-03 mouth Seybold Tab 15:30: 19 Zinc 2021- Yes 220mg Take 220 Karmen Sulfate 220 5-03 mg by Seybold (50 Zn) MG 15:30: mouth oral Cap 19 Fluocinonid Yes Apply 1 James sey e 0.05 % 5-03 applicatio Seybo ld apply 15:30: n externally 19 topically Ointment Lidocaine 5 2021-0 Yes Apply 1 James sey % apply 5-03 applicatio Seybol d externally 15:30: n Ointment 19 topically Lidocaine 2021-0 Yes Apply Karmen HCl 4 % 5-03 topically. Seybol d apply 15:30: externally 19 Gel Budesonide- 2021-0 Yes 2{puff} Inhale 2 Karmen Formoterol 5-03 puffs into Sey bold Fumarate 15:30: the lungs 160-4.5 19 MCG/ACT inhalation Aerosol SUPER B Yes Take by Karmen COMPLEX/C 5-03 mouth Seybold OR 15:30: 19 Magnesium 2021-0 Yes Take by Kelse y 250 MG oral 5-03 mouth Seybold Tab 15:30: 19 HydrOXYzine 2021-0 Yes 25mg Q.[id number] Take 25 mg Karmen HCl 25 MG 5-03 [id number] by mouth Seybold oral Tab 15:30: 3D every 8 19 hours as needed for itching Amiodarone 2021-0 Yes 200mg Take 200 Ke lsey HCl [...] for allergies. Calcium-Mag Yes Take by James sey nesium-Christina 5-03 mouth Seybold min D 15:30: daily Take (CALCIUM 19 as 1200+D3 OR) directed. Ciprofloxac Yes .5[in_u Place 0.5 Karmen in HCl 5-03 s] inches Seybold (CILOXIN) 15:30: into both 0.3 % 19 eyes 2 ophthalmic times Ointment daily 2 drops per eye daily Cyclobenzap Yes 10mg Q.[id number] Take 10 mg Karmen rine HCl 10 5-03 [id number] by mouth 3 Seybold MG oral 15:30: [...] times. If not relieved CALL 911. Pregabalin 0 Yes 50mg Take 50 mg K elsey [...] 1 Karmen EN-CAFF-BUT 5-03 le} capsule by ybold ALBITAL 15:30: mouth 50-325-40 19 every 6 MG oral hours as Capsule needed for pain Sumatriptan Yes 100mg Take 100 K elsey Succinate 5-03 mg by Seybold 100 MG oral 15:30: mouth Tablet 19 every 2 hours as needed for migraine (take 2 tabs every 2 hours as needed for 2 doses for Migraine.) Cyanocobala Yes Take by James gallegos min (B-12) - mouth Seybold 50 MCG oral 15:30: Tablet 18 Phenyleph-D Yes Take by James gallegos iphenhyd-Hy 11-11 mouth As Seyb old drocod 15:30: needed for (HYDRO-DP 17 bronchial OR) cough every 4-6 hours Aspirin-[place] Yes 81mg Take 81 mg Karmen cium -03 by mouth Seybold Carbonate 14:38: 81-777 MG 23 oral Tablet predniSONE Yes [id number] 10mg Take 1 Karmen (DELTASONE) 5-03 tablet (10 Se ybold 10 MG oral 00:00: mg total) tablet 00 by mouth daily predniSONE Yes [id number] 10mg Take 1 Karmen (DELTASONE) 5-03 tablet [...] 2 weeks. TRIMETHOPRI Yes Take by James gallegos M-SULFAMETH 4-15 mouth 2 Seybo ld OXAZOLE [...] by mouth ity of tablet 16:48: at [place] [address] bedtime. Medical Branch tiZANidine 2021-0 Yes 4mg Take 4 mg Un kayla (ZANAFLEX) 4-14 by mouth ity o f 4 mg tablet 16:48: every 6 Wili as 12 (six) Medical hours as Branch needed. Magnesium 202-0 Yes Take by Unive rs 250 mg Tab 4-14 mouth. ity of 16:48: [address] OMEGA-3S-DH 2021-0 Yes Take by Uni vers A-EPA-FISH 4-14 mouth. ity of OIL ORAL 16:48: [address] multivitami 0 Yes Take by Uni vers n,tx-minera 4-14 mouth. ity of ls 16:48: [place] (VITAMINS 12 Medical AND Branch MINERALS) tablet collagenase 0 Yes Apply to Un kayla 250 4-14 area(s). ity of unit/gram 16:48: [place] ointment [address] [place] [address] amitriptyli 2021-0 Yes 25mg Take 25 mg Univers ne 25 mg 4-14 by mouth. ity of tablet 16:48: [address] cloNIDine 0 Yes .1mg Take 0.1 Univ ers 0.1 mg 4-14 mg by ity of tablet 16:48: mouth 3 [place] [address] (three) Medical times Branch daily. furosemide 2021-0 Yes 20mg Take 20 mg U nivers 20 mg 4-14 by mouth ity of tablet 16:48: at [place] [address] bedtime. Medical Branch tiZANidine 2021-0 Yes 4mg Take 4 mg Un kayla (ZANAFLEX) 4-14 by mouth ity o f 4 mg tablet 16:48: every 6 Wili as 12 (six) Medical hours as Branch needed. Magnesium 2022-0 Yes Take by Unive rs 250 mg Tab 4-14 mouth. ity of 16:48: [address] OMEGA-3S-DH 2021-0 Yes Take by Uni vers A-EPA-FISH 4-14 mouth. ity of OIL ORAL 16:48: [address] multivitami 2021-0 Yes Take by Uni vers n,tx-minera 4-14 mouth. ity of ls 16:48: [place] (VITAMINS 12 Medical AND Branch MINERALS) tablet collagenase 2021-0 Yes Apply to Un kayla 250 4-14 area(s). ity of unit/gram 16:48: [place] ointment Medical Branch amitriptyli 2021-0 Yes 25mg Take 25 mg Univers ne 25 mg 4-14 by mouth. ity of tablet 16:48: [address] Branch cloNIDine 2021-0 Yes .1mg Take 0.1 Univ ers 0.1 mg 4-14 mg by ity of tablet 16:48: mouth 3 [place] [address] (three) Medical times Branch daily. furosemide 2021-0 Yes 20mg Take 20 mg U nivers 20 mg 4-14 by mouth ity of tablet 16:48: at [place] [address] bedtime. Medical Branch tiZANidine 2021-0 Yes 4mg Take 4 mg Un kayla (ZANAFLEX) 4-14 by mouth ity o f 4 mg tablet 16:48: every 6 Wili as 12 (six) Medical hours as Branch needed. Magnesium 2021-0 Yes Take by Unive rs 250 mg Tab 4-14 mouth. ity of 16:48: [address] OMEGA-3S-DH 0 Yes Take by Uni vers A-EPA-FISH 4-14 mouth. ity of OIL ORAL 16:48: [address] multivitami 0 Yes Take by Uni vers n,tx-minera 4-14 mouth. ity of ls 16:48: [place] (VITAMINS 12 Medical AND Branch MINERALS) tablet collagenase 0 Yes Apply to Un kayla 250 4-14 area(s). ity of unit/gram 16:48: [place] ointment Medical Branch amitriptyli 2021-0 Yes 25mg Take 25 mg Univers ne 25 mg 4-14 by mouth. ity of tablet 16:48: [address] Branch cloNIDine 2021-0 Yes .1mg Take 0.1 Univ ers 0.1 mg 4-14 mg by ity of tablet 16:48: mouth 3 [place] [address] (three) Medical times Branch daily. furosemide 2022-0 Yes 20mg Take 20 mg U nivers 20 mg 4-14 by mouth ity of tablet 16:48: at [place] [address] bedtime. Medical Branch tiZANidine 2021-0 Yes 4mg Take 4 mg Un kayla (ZANAFLEX) 4-14 by mouth ity o f 4 mg tablet 16:48: every 6 Wili as 12 (six) Medical hours as Branch needed. Magnesium 2-0 Yes Take by Unive rs 250 mg Tab 4-14 mouth. ity of 16:48: [address] OMEGA-3S-DH 0 Yes Take by Uni vers A-EPA-FISH 4-14 mouth. ity of OIL ORAL 16:48: [address] Branch multivitami 0 Yes Take by Uni vers n,tx-minera 4-14 mouth. ity of ls 16:48: [place] (VITAMINS 12 Medical AND Branch MINERALS) tablet collagenase 2021-0 Yes Apply to Un kayla 250 4-14 area(s). ity of unit/gram 16:48: [place] ointment Medical Branch amitriptyli 0 Yes 25mg Take 25 mg Univers ne 25 mg 4-14 by mouth. ity of tablet 16:48: [address] cloNIDine 2021-0 Yes .1mg Take 0.1 Univ ers 0.1 mg 4-14 mg by ity of tablet 16:48: mouth 3 [place] [address] (three) Medical times Branch daily. furosemide 2021-0 Yes 20mg Take 20 mg U nivers 20 mg 4-14 by mouth ity of tablet 16:48: at [place] [address] bedtime. Medical Branch tiZANidine 2021-0 Yes 4mg Take 4 mg Un kayla (ZANAFLEX) 4-14 by mouth ity o f 4 mg tablet 16:48: every 6 Wili as 12 (six) Medical hours as Branch needed. Magnesium 2021-0 Yes Take by Unive rs 250 mg Tab 4-14 mouth. ity of 16:48: [address] OMEGA-3S-DH 0 Yes Take by Uni vers A-EPA-FISH 4-14 mouth. ity of OIL ORAL 16:48: [address] multivitami 0 Yes Take by Uni vers n,tx-minera 4-14 mouth. ity of ls 16:48: [place] (VITAMINS 12 Medical AND Branch MINERALS) tablet collagenase 2021-0 Yes Apply to Un kayla 250 4-14 area(s). ity of unit/gram 16:48: [place] ointment Medical Branch amitriptyli 2022-0 Yes 25mg Take 25 mg Univers ne 25 mg 4-14 by mouth. ity of tablet 16:48: [place] [address] Medical Branch cloNIDine 2021-0 Yes .1mg Take 0.1 Univ ers 0.1 mg 4-14 mg by ity of tablet 16:48: mouth 3 [place] [address] (three) Medical times Branch daily. Bupropion 0 Yes 1{tbl} Take 1 Aimee ey HCL [...] Seybold 10 MG oral 00:00: Tablet 00 topiramate 2021-0 Yes Univers 25 mg 4-06 ity of tablet 00:00: [address] topiramate 2021-0 Yes Univers 25 mg 4-06 ity of tablet 00:00: [address] topiramate 2021-0 Yes Univers 25 mg 4-06 ity of tablet 00:00: [address] topiramate 2021-0 Yes Univers 25 mg 4-06 ity of tablet 00:00: [address] topiramate 2021-0 Yes Univers 25 mg 4-06 ity of tablet 00:00: [address] topiramate 2021-0 Yes Univers 25 mg 4-06 ity of tablet 00:00: [address] topiramate 2021-0 Yes Univers 25 mg 4-06 ity of tablet 00:00: [address] topiramate 2021-0 Yes Univers 25 mg 4-06 ity of tablet 00:00: [address] topiramate 2021-0 Yes Univers 25 mg 4-06 ity of tablet 00:00: [address] topiramate 2021-0 Yes Univers 25 mg 4-06 ity of tablet 00:00: [address] topiramate 2021-0 Yes Univers 25 mg 4-06 ity of tablet 00:00: [address] Topiramate 2022-0 Yes 2{tbl} Take 2 James sey 25 MG oral 4-06 tablets by Sey bold Tablet 00:00: mouth in 00 the morning and 2 tablets in the evening. Topiramate 0 Yes 25mg Take 25 mg K elsey 25 MG oral 4-06 by mouth Seybo ld Tablet 00:00: in the 00 morning and 25 mg in the evening. topiramate 0 Yes Univers 25 mg 4-06 ity of tablet 00:00: [place] [facility] topiramate 2021-0 Yes Univers 25 mg 4-06 ity of tablet 00:00: [place] [facility] LIDOCAINE 2021-0 Yes Univers VISCOUS 2 % 4-01 ity of solution 00:00: [place] [facility] LIDOCAINE 0 Yes Univers VISCOUS 2 % 4-01 ity of solution 00:00: Medical Branch LIDOCAINE 2021-0 Yes Univers VISCOUS 2 % 4-01 ity of solution 00:00: [place] [facility] LIDOCAINE 2021-0 Yes Univers VISCOUS 2 % 4-01 ity of solution 00:00: [place] [facility] LIDOCAINE 2021-0 Yes Univers VISCOUS 2 % 4-01 ity of solution 00:00: [place] [facility] Silvadene 1 2021-0 Yes 1{packa Apply 1 Karmen % apply 4-01 ge} package Seybold externally 00:00: topically Cream 00 2 times daily Silvadene 1 2021-0 Yes 1{packa Apply 1 Karmen % apply 4-01 ge} package Seybold externally 00:00: topically Cream 00 2 times daily LIDOCAINE 2021-0 2022- No Univers VISCOUS 2 % 4-01 03-24 ity of solution 00:00: 00:00 [place] 00 :00 Medical Branch LIDOCAINE 2021-0 2022- No Univers VISCOUS 2 % 4-01 03-24 ity of solution 00:00: 00:00 [place] 00 :00 Medical Branch sumatriptan 2021-0 Yes Univer s 100 mg 3-14 ity of tablet 00:00: Medical Branch sumatriptan 2021-0 Yes Univer s 100 mg 3-14 ity of tablet 00:00: Medical Branch sumatriptan 2021-0 Yes Univer s 100 mg 3-14 ity of tablet 00:00: [place] 00 Medical Branch sumatriptan 2021-0 Yes Univer s 100 mg 3-14 ity of tablet 00:00: [place] [facility] sumatriptan 2-0 Yes Univer s 100 mg 3-14 ity of tablet 00:00: [place] [facility] sumatriptan 2021-0 Yes Univer s 100 mg 3-14 ity of tablet 00:00: [address] hydrALAZINE 2-0 Yes 50mg Q.[id number] Take 50 mg Karmen HCl 50 MG 3-14 [id number] by mouth Seybold oral Tablet 00:00: 3D every 8 00 hours as needed hydrALAZINE 2021-0 Yes 50mg Q.[id number] Take 50 mg Karmen HCl 50 MG 3-14 [id number] by mouth Seybold oral Tablet 00:00: 3D every 8 00 hours as needed sumatriptan 2021-0 3- No Unive rs 100 mg 3-14 03-30 ity of tablet 00:00: 00:00 [place] 00 :00 [facility] Branch hydrOXYzine 2-0 Yes 25mg Q.[id number] Take 25 mg Karmen Pamoate 50 2-25 [id number] by mouth Seybold MG oral 00:00: 3D every 8 Capsule 00 hours as needed hydrOXYzine 2-0 Yes 25mg Q.[id number] Take 25 mg Karmen Pamoate 50 2-25 [id number] by mouth Seybold MG oral 00:00: 3D every 8 Capsule 00 hours as needed NIFEdipine 2021-0 Yes Univers ER 60 mg 2-08 ity of tablet 00:00: [address] NIFEdipine 2-0 Yes Univers ER 60 mg 2-08 ity of tablet 00:00: [address] NIFEdipine 2-0 Yes Univers ER 60 mg 2-08 ity of tablet 00:00: [address] NIFEdipine 2022-0 Yes Univers ER 60 mg 2-08 ity of tablet 00:00: [address] NIFEdipine 2022-0 Yes Univers ER 60 mg 2-08 ity of tablet 00:00: [address] NIFEdipine 2-0 Yes 1{tbl} Take 1 James sey 60 MG oral 2-08 tablet by Seyb old TABLET SR 00:00: mouth 24 HR 00 daily NIFEdipine 2-0 2023- No Univer s ER 60 mg 08-1924 ity of tablet 00:00: 00:00 [place] 00 :00 Medical Branch NIFEdipine 2021-0 2022- No Univer s ER 60 mg 08-1924 ity of tablet 00:00: 00:00 [place] 00 :00 Medical Branch cloniDINE 2020-0 Yes .2mg Take 0.2 Univ ers (CATAPRES) 1-06 mg by ity of 0.2 mg 15:39: mouth 2 [place] tablet 12 (two) Medical times Branch daily. carvedilol Yes 25mg Take 25 mg U nivers (COREG) 25 1-06 by mouth 2 ity of mg tablet 15:39: (two) [place] [address] times [facility] daily with Branch meals. lisinopril Yes 40mg Take 40 mg U nivers (PRINIVIL,Z -06 by mouth ity of ESTRIL) 40 15:39: daily. [place] mg tablet [address] [place] [address] Branch Potassium Yes Take by [facility] (POTASSIUM- 1-06 mouth. ity of 99) 99 mg 15:39: [place] Tab [address] [place] [address] Branch FLAXSEED Yes Take by [facility] s OIL (OMEGA 1-06 mouth. ity of 3 ORAL) 15:39: [address] Branch MULTIVITS-M Yes Take by Uni vers IN/FA/CA 1-06 mouth. ity of CARB/VIT K 15:39: [place] (ONE-A-DAY 12 [facility] WOMEN'S 50+ Branch ORAL) aspirin 81 Yes 81mg Take 81 mg U nivers mg chewable -06 by mouth ity of tablet 15:39: daily. [address] Branch gabapentin Yes 600mg Take 600 Un kayla 300 mg 1-06 mg by ity of capsule 15:39: mouth 3 [place] [address] (three) Medical times Branch daily. HYDROcodone Yes [...] mg by ity of tablet 15:39: mouth. [address] levoFLOXaci Yes Take by Uni vers n 250 mg/10 1- mouth. ity of mL solution 15:39: [address] OMEGA-3 Yes Take by Univers FATTY ACIDS - mouth. ity of ORAL 15:39: [address] vancomycin Yes 1.25mg Inject Uni vers HCL in 07-17 1.25 mg ity of water 100 15:39: intravenou [place] mg/mL Soln 12 sly. [facility] Acetaminoph Yes Take by Uni vers en 500 mg 1- mouth. ity of Cap 15:39: [address] acetaminoph Yes 1{tbl} Take 1 Un kayla en-codeine 07-17 tablet by ity of 300-30 mg 15:39: mouth. [place] tablet [address] [place] [address] aspirin-jersey Yes 81mg Take 81 mg Univers cium 06 by mouth. ity of carbonate 15:39: [place] 81 mg-300 12 Medical mg Branch calcium(777 mg) Tab ceFEPIme Yes 1g Inject 1 g Uni vers (MAXIPIME) 07-17 intravenou ity of 1 gram 15:39: sly. [place] injection [address] [place] [address] cholecalcif Yes 1000U Take 1,000 Univers garcia, 1-06 Units by ity of vitamin D3, 15:39: [place]. [place] 25 mcg 12 Medical (1,000 Branch unit) tablet clindamycin Yes 300mg Take 300 U nivers 300 mg 1-06 mg by ity of capsule 15:39: mouth. [address] fluocinonid Yes Apply to Un kayla e 0.05 % 1-06 area(s). ity of ointment 15:39: [address] folic acid Yes Take by Univ ers 0.8 mg Cap 1-06 mouth. ity of 15:39: [address] levoFLOXaci Yes 500mg Take 500 U nivers n 500 mg 1-06 mg by ity of tablet 15:39: mouth. [address] nitroglycer Yes .4mg Place 0.4 U nivers in 0.4 mg 1-06 mg under ity of sublingual 15:39: the [facility] 12 tongue. [facility] KCL 10 mEq Yes 10meq Take 10 Uni vers tablet 1-06 mEq by ity of 15:39: mouth. [address] VITAMIN B Yes 1{tbl} Take 1 Univ ers COMPLEX 1-06 tablet by ity of ORAL 15:39: mouth. [address] zinc Yes 220mg Take 220 Univers sulfate 220 1-06 mg by ity of (50) mg 15:39: mouth. [place] capsule [address] [place] [address] budesonide- Yes 2{puff} Inhale 2 Univers formoteroL 1-06 Puffs. ity of 80-4.5 15:39: [place] mcg/actuati Medical on inhaler Branch budesonide- Yes 2{puff} Inhale 2 Univers formoteroL 1-06 Puffs. ity of 160-4.5 15:39: [place] mcg/actuati Medical on inhaler Branch gabapentin Yes 400mg Take 400 Un kayla 400 mg 1-06 mg by ity of capsule 15:39: mouth. [address] hydrALAZINE Yes 25mg Take 25 mg Univers 25 mg 1-06 by mouth. ity of tablet 15:39: [address] hydrOXYzine Yes 25mg Take 25 mg Univers 25 mg 1-06 by mouth. ity of tablet 15:39: [address] lidocaine 5 Yes Apply to Un kayla % ointment 1-06 area(s). ity o f 15:39: [address] triamcinolo Yes Apply to Un kayla ne 1-06 area(s). ity of acetonide 15:39: [place] 0.1 % cream Medical Branch cloniDINE Yes .2mg Take 0.2 Univ ers (CATAPRES) 1-06 mg by ity of 0.2 mg 15:39: mouth 2 [place] tablet 12 (two) Medical times Branch daily. carvedilol Yes 25mg Take 25 mg U nivers (COREG) 25 06 by mouth 2 ity of mg tablet 15:39: (two) [place] [address] times Medical daily with Branch meals. lisinopril Yes 40mg Take 40 mg U nivers (PRINIVIL,Z 06 by mouth ity of ESTRIL) 40 15:39: daily. [place] mg tablet [address] [place] [address] Branch Potassium Yes Take by [facility] rs (POTASSIUM- - mouth. ity of 99) 99 mg 15:39: [place] Tab [address] [place] [address] Branch FLAXSEED Yes Take by [facility] s OIL (OMEGA 1- mouth. ity of 3 ORAL) 15:39: [address] Branch MULTIVITS-M Yes Take by [facility] vers IN/FA/CA 1-06 mouth. ity of CARB/VIT K 15:39: [place] (ONE-A-DAY [address] [place] [address] WOMEN'S 50+ Branch ORAL) aspirin 81 Yes 81mg Take 81 mg U nivers mg chewable 06 by mouth ity of tablet 15:39: daily. [address] Branch gabapentin Yes 600mg Take 600 Un kayla 300 mg 1-06 mg by ity of capsule 15:39: mouth 3 [place] 12 (three) Medical times Branch daily. HYDROcodone [...] AMOXICILLIN Yes Take by Uni vers /POTASSIUM - mouth 2 ity of CLAV 15:39: (two) [place] (AUGMENTIN 12 times Medical ORAL) daily. Branch ibuprofen Yes 400mg Take 400 Uni vers 400 mg 1- mg by ity of tablet 15:39: mouth. [address] levoFLOXaci Yes Take by Uni vers n 250 mg/10 - mouth. ity of mL solution 15:39: [address] OMEGA-3 Yes Take by Univers FATTY ACIDS - mouth. ity of ORAL 15:39: [address] vancomycin Yes 1.25mg Inject Uni vers HCL in 07-17 1.25 mg ity of water 100 15:39: intravenou [place] mg/mL Soln 12 sly. [facility] Acetaminoph Yes Take by Uni vers en 500 mg - mouth. ity of Cap 15:39: [address] acetaminoph Yes 1{tbl} Take 1 Un kayla en-codeine 07-17 tablet by ity of 300-30 mg 15:39: mouth. [address] [place] [address] aspirin-jersey Yes 81mg Take 81 mg Univers cium 07-17 by mouth. ity of carbonate 15:39: [place] 81 mg-[address] [place] [address] calcium(777 mg) Tab ceFEPIme Yes 1g Inject 1 g Uni vers (MAXIPIME) 07-17 intravenou ity of 1 gram 15:39: sly. [place] injection [address] [place] [address] Branch cholecalcif Yes 1000U Take 1,000 Univers garcia, 1-06 Units by ity of vitamin D3, 15:39: [place]. [place] 25 mcg 12 Medical (1,000 Branch unit) tablet clindamycin Yes 300mg Take 300 U nivers 300 mg 1-06 mg by ity of capsule 15:39: mouth. [address] fluocinonid Yes Apply to Un kayla e 0.05 % 07-17 area(s). ity of ointment 15:39: [address] folic acid Yes Take by [facility] ers 0.8 mg Cap 1-06 mouth. ity of 15:39: [address] levoFLOXaci Yes 500mg Take 500 U nivers n 500 mg 1-06 mg by ity of tablet 15:39: mouth. [address] nitroglycer Yes .4mg Place 0.4 U nivers in 0.4 mg 1-06 mg under ity of sublingual 15:39: the [place] [address] tongue. [facility] KCL 10 mEq Yes 10meq Take 10 Uni vers tablet 1-06 mEq by ity of 15:39: mouth. [address] VITAMIN B Yes 1{tbl} Take 1 Univ ers COMPLEX 1-06 tablet by ity of ORAL 15:39: mouth. [address] zinc Yes 220mg Take 220 Univers sulfate 220 1-06 mg by ity of (50) mg 15:39: mouth. [place] capsule [address] [place] [address] budesonide- Yes 2{puff} Inhale 2 Univers formoteroL 1-06 Puffs. ity of 80-4.5 15:39: [place] mcgactuati Medical on inhaler Branch budesonide- Yes 2{puff} Inhale 2 Univers formoteroL 1-06 Puffs. ity of 160-4.5 15:39: [facility]/actuati Medical on inhaler Branch gabapentin Yes 400mg Take 400 Un kayla 400 mg 1-06 mg by ity of capsule 15:39: mouth. [address] hydrALAZINE Yes 25mg Take 25 mg Univers 25 mg 1-06 by mouth. ity of tablet 15:39: [address] hydrOXYzine Yes 25mg Take 25 mg Univers 25 mg 1-06 by mouth. ity of tablet 15:39: [address] lidocaine 5 Yes Apply to Un kayla % ointment 1-06 area(s). ity o f 15:39: [address] triamcinolo Yes Apply to Un kayla ne 1-06 area(s). ity of acetonide 15:39: [place] 0.1 % cream [address] [place] [address] cloniDINE Yes .2mg Take 0.2 Univ ers [...] mouth. ity of 99) 99 mg 15:39: [place] Tab [address] [place] [address] Branch FLAXSEED Yes Take by Univer s OIL (OMEGA 1- mouth. ity of 3 ORAL) 15:39: [address] Branch MULTIVITS-M Yes Take by Uni vers IN/FA/CA 1-06 mouth. ity of CARB/VIT K 15:39: [place] (ONE-A-DAY 12 [facility] WOMEN'S 50+ Branch ORAL) aspirin 81 Yes 81mg Take 81 mg U nivers mg chewable 06 by mouth ity of tablet 15:39: daily. [address] Branch gabapentin Yes 600mg Take 600 [...] 1-06 mouth 3 ity of 15:39: (three) [place] 12 times Medical daily. Branch AMOXICILLIN Yes Take by Uni vers /POTASSIUM 1-06 mouth 2 ity of CLAV 15:39: (two) [place] (AUGMENTIN 12 times Medical ORAL) daily. Branch ibuprofen Yes 400mg Take 400 Uni vers 400 mg 1- mg by ity of tablet 15:39: mouth. [address] Branch levoFLOXaci Yes Take by Uni vers n 250 mg/10 07-17 mouth. ity of mL solution 15:39: [address] OMEGA-3 Yes Take by [facility] FATTY ACIDS 07-17 mouth. ity of ORAL 15:39: [address] vancomycin Yes 1.25mg Inject Uni vers HCL in 07-17 1.25 mg ity of water 100 15:39: intravenou [place] mg/mL Soln 12 sly. [facility] Branch Acetaminoph Yes Take by Uni vers en 500 mg 07-17 mouth. ity of Cap 15:39: [address] acetaminoph Yes 1{tbl} Take 1 Un kayla en-codeine 07-17 tablet by ity of 300-30 mg 15:39: mouth. [place] tablet [address] [place] [address] aspirin-jersey Yes 81mg Take 81 mg Univers cium 07-17 by mouth. ity of carbonate 15:39: [place] 81 mg-[address] [place] [address] Branch calcium(777 mg) Tab ceFEPIme Yes 1g Inject 1 g Uni vers (MAXIPIME) 07-17 intravenou ity of 1 gram 15:39: sly. [place] injection [address] [place] [address] Branch cholecalcif Yes 1000U Take 1,000 Univers garcia, 07-17 Units by ity of vitamin D3, 15:39: mouth. [place] 25 mcg Medical (1,000 Branch unit) tablet clindamycin Yes 300mg Take 300 U nivers 300 mg - mg by ity of capsule 15:39: mouth. [address] fluocinonid Yes Apply to Un kayla e 0.05 % 07-17 area(s). ity of ointment 15:39: [address] folic acid Yes Take by Univ ers 0.8 mg Cap 07-17 mouth. ity of 15:39: [address] levoFLOXaci Yes 500mg Take 500 U nivers n 500 mg 1-06 mg by ity of tablet 15:39: mouth. [address] nitroglycer Yes .4mg Place 0.4 U nivers in 0.4 mg 1-06 mg under ity of sublingual 15:39: the [place] [address] tongue. [facility] KCL 10 mEq Yes 10meq Take 10 Uni vers tablet 1-06 mEq by ity of 15:39: mouth. [address] VITAMIN B Yes 1{tbl} Take 1 Univ ers COMPLEX 1-06 tablet by ity of ORAL 15:39: mouth. [address] zinc Yes 220mg Take 220 Univers sulfate 220 1-06 mg by ity of (50) mg 15:39: mouth. [place] capsule [address] [place] [address] budesonide- Yes 2{puff} Inhale 2 Univers formoteroL 1-06 Puffs. ity of 80-4.5 15:39: [place] mcg/actuati Medical on inhaler Branch budesonide- Yes 2{puff} Inhale 2 Univers formoteroL 1-06 Puffs. ity of 160-4.5 15:39: [place] mcg/actuati Medical on inhaler Branch gabapentin Yes 400mg Take 400 Un kayla 400 mg 1-06 mg by ity of capsule 15:39: mouth. [address] hydrALAZINE Yes 25mg Take 25 mg Univers 25 mg 1-06 by mouth. ity of tablet 15:39: [address] hydrOXYzine Yes 25mg Take 25 mg Univers 25 mg 1-06 by mouth. ity of tablet 15:39: [address] lidocaine 5 Yes Apply to Un kayla % ointment 1-06 area(s). ity o f 15:39: [address] triamcinolo Yes Apply to Un kayla ne 1-06 area(s). ity of acetonide 15:39: [place] 0.1 % cream [address] [place] [address] cloniDINE Yes .2mg Take 0.2 Univ ers (CATAPRES) 1-06 mg by ity of 0.2 mg 15:39: mouth 2 [place] tablet (two) Medical times Branch daily. carvedilol Yes 25mg Take 25 mg U nivers (COREG) 25 1-06 by mouth 2 ity of mg tablet 15:39: (two) [place] 12 times Medical daily with Branch meals. lisinopril Yes 40mg Take 40 mg U nivers (PRINIVIL,Z 1-06 by mouth ity of ESTRIL) 40 15:39: daily. [place] mg tablet Medical Branch Potassium Yes Take by [facility] (POTASSIUM- 1-06 mouth. ity of 99) 99 mg 15:39: [place] Tab Medical Branch FLAXSEED Yes Take by [facility] OIL (OMEGA 1-06 mouth. ity of 3 ORAL) 15:39: [address] Branch MULTIVITS-M Yes Take by Uni vers IN/FA/CA 1-06 mouth. ity of CARB/VIT K 15:39: [place] (ONE-A-DAY 12 [facility] WOMEN'S 50+ Branch ORAL) aspirin 81 Yes 81mg Take 81 mg U nivers mg chewable 06 by mouth ity of tablet 15:39: daily. [address] Branch gabapentin Yes 600mg Take 600 Un kayla 300 mg 1-06 mg by ity of capsule 15:39: mouth 3 [place] 12 (three) Medical times Branch daily. HYDROcodone Yes 1{tbl} Take 1 Un kayla -acetaminop 1-06 tablet by ity of hen 10-325 15:39: mouth 2 [place] mg tablet 12 (two) Medical times Branch daily. valsartan-h Yes 1{tbl} Take 1 Un kayla ydrochlorot 1-06 tablet by ity of hiazide 15:39: mouth [place] 320-25 mg 12 daily. Medical per tablet Branch Oxycodone Yes Take by [facility] 10 mg Tab 1-06 mouth 3 ity of 15:39: (three) [place] 12 times Medical daily. Branch AMOXICILLIN Yes Take by Uni vers /POTASSIUM 1-06 mouth 2 ity of CLAV 15:39: (two) [place] (AUGMENTIN 12 times Medical ORAL) daily. Branch ibuprofen Yes 400mg Take 400 Uni vers 400 mg 1-06 mg by ity of tablet 15:39: mouth. [address] Branch levoFLOXaci Yes Take by Uni vers n 250 mg/10 - mouth. ity of mL solution 15:39: [address] OMEGA-3 Yes Take by Univers FATTY ACIDS - mouth. ity of ORAL 15:39: [address] vancomycin Yes 1.25mg Inject Uni vers HCL in 07-17 1.25 mg ity of water 100 15:39: intravenou [place] mg/mL Soln 12 sly. [facility] Branch Acetaminoph Yes Take by Uni vers en 500 mg - mouth. ity of Cap 15:39: [address] acetaminoph Yes 1{tbl} Take 1 Un kayla en-codeine 07-17 tablet by ity of 300-30 mg 15:39: mouth. [address] [place] [address] aspirin-jersey Yes 81mg Take 81 mg Univers cium 07-17 by mouth. ity of carbonate 15:39: [place] 81 mg-[address] [place] [address] Branch calcium(777 mg) Tab ceFEPIme Yes 1g Inject 1 g Uni vers (MAXIPIME) 07-17 intravenou ity of 1 gram 15:39: sly. [place] injection [address] [place] [address] cholecalcif Yes 1000U Take 1,000 Univers garcia, 1-06 Units by ity of vitamin D3, 15:39: mouth. [place] 25 mcg Medical (1,000 Branch unit) tablet clindamycin Yes 300mg Take 300 U nivers 300 mg 1-06 mg by ity of capsule 15:39: mouth. [address] fluocinonid Yes Apply to Un kayla e 0.05 % 07-17 area(s). ity of ointment 15:39: [address] folic acid Yes Take by Univ ers 0.8 mg Cap - mouth. ity of 15:39: [address] levoFLOXaci Yes 500mg Take 500 U nivers n 500 mg 1-06 mg by ity of tablet 15:39: mouth. [address] nitroglycer Yes .4mg Place 0.4 U nivers in 0.4 mg 1-06 mg under ity of sublingual 15:39: the [place] [address] tongue. [facility] KCL 10 mEq Yes 10meq Take 10 Uni vers tablet 1-06 mEq by ity of 15:39: mouth. [address] VITAMIN B Yes 1{tbl} Take 1 Univ ers COMPLEX 1-06 tablet by ity of ORAL 15:39: mouth. [address] zinc Yes 220mg Take 220 Univers sulfate 220 1-06 mg by ity of (50) mg 15:39: mouth. [place] capsule [address] [place] [address] budesonide- Yes 2{puff} Inhale 2 Univers formoteroL 1-06 Puffs. ity of 80-4.5 [facility] budesonide- Yes 2{puff} Inhale 2 Univers formoteroL 1-06 Puffs. ity of 160-4.5 15:39: [facility]/actuati Medical on inhaler Branch gabapentin Yes 400mg Take 400 Un kayla 400 mg 1-06 mg by ity of capsule 15:39: mouth. [address] hydrALAZINE Yes 25mg Take 25 mg Univers 25 mg 1-06 by mouth. ity of tablet 15:39: [address] hydrOXYzine Yes 25mg Take 25 mg Univers 25 mg 1-06 by mouth. ity of tablet 15:39: [address] lidocaine 5 Yes Apply to Un kayla % ointment 1-06 area(s). ity o f 15:39: [address] triamcinolo Yes Apply to Un kayla ne 1-06 area(s). ity of acetonide 15:39: [place] 0.1 % cream [address] [place] [address] cloniDINE Yes .2mg Take 0.2 Univ ers (CATAPRES) 1-06 mg by ity of 0.2 mg 15:39: mouth 2 [place] tablet 12 (two) Medical times [place] daily. carvedilol Yes 25mg Take 25 mg U nivers (COREG) 25 1-06 by mouth 2 ity of mg tablet 15:39: (two) [place] 12 times Medical daily with Branch meals. lisinopril Yes 40mg Take 40 mg U nivers (PRINIVIL,Z 1-06 by mouth ity of ESTRIL) 40 15:39: daily. [place] mg tablet Medical Branch Potassium Yes Take by Unive rs (POTASSIUM- 1-06 mouth. ity of 99) 99 mg 15:39: [place] Tab [address] [place] [address] Branch FLAXSEED Yes Take by Univer s OIL (OMEGA 1-06 mouth. ity of 3 ORAL) 15:39: [address] Branch MULTIVITS-M Yes Take by Uni vers IN/FA/CA 1-06 mouth. ity of CARB/VIT K 15:39: [place] (ONE-A-DAY [address] [place] [address] WOMEN'S 50+ Branch ORAL) aspirin 81 Yes 81mg Take 81 mg U nivers mg chewable 06 by mouth ity of tablet 15:39: daily. [address] Branch gabapentin Yes 600mg Take 600 [...] mouth 2 ity of CLAV 15:39: (two) [place] (AUGMENTIN 12 times Medical ORAL) daily. Branch ibuprofen Yes 400mg Take 400 Uni vers 400 mg 1-06 mg by ity of tablet 15:39: mouth. [address] Branch levoFLOXaci Yes Take by Uni vers n 250 mg/10 1-06 mouth. ity of mL solution 15:39: [address] OMEGA-3 Yes Take by Univers FATTY ACIDS - mouth. ity of ORAL 15:39: [address] vancomycin Yes 1.25mg Inject Uni vers HCL in 06 1.25 mg ity of water 100 15:39: intravenou [place] mg/mL Soln 12 sly. [facility] Branch Acetaminoph Yes Take by Uni vers en 500 mg 1-06 mouth. ity of Cap 15:39: [address] acetaminoph Yes 1{tbl} Take 1 Un kayla en-codeine 07-17 tablet by ity of 300-30 mg 15:39: mouth. [place] tablet [address] [place] [address] aspirin-jersey Yes 81mg Take 81 mg Univers cium 07-17 by mouth. ity of carbonate 15:39: [place] 81 mg-[address] [place] [address] calcium(777 mg) Tab ceFEPIme Yes 1g Inject 1 g Uni vers (MAXIPIME) 07-17 intravenou ity of 1 gram 15:39: sly. [place] injection [address] [place] [address] Branch cholecalcif Yes 1000U Take 1,000 Univers garcia, - Units by ity of vitamin D3, 15:39: mouth. [place] 25 mcg Medical (1,000 Branch unit) tablet clindamycin Yes 300mg Take 300 U nivers 300 mg 1-06 mg by ity of capsule 15:39: mouth. [address] fluocinonid Yes Apply to kayla e 0.05 % 07-17 area(s). ity of ointment 15:39: [address] Branch folic acid Yes Take by Univ ers 0.8 mg Cap - mouth. ity of 15:39: [address] levoFLOXaci Yes 500mg Take 500 U nivers n 500 mg 1-06 mg by ity of tablet 15:39: mouth. [address] nitroglycer Yes .4mg Place 0.4 U nivers in 0.4 mg 1-06 mg under ity of sublingual 15:39: the [place] tablet 12 tongue. [facility] KCL 10 mEq Yes 10meq Take 10 Uni vers tablet 1-06 mEq by ity of 15:39: mouth. [address] VITAMIN B Yes 1{tbl} Take 1 Univ ers COMPLEX 1-06 tablet by ity of ORAL 15:39: mouth. [address] zinc Yes 220mg Take 220 Univers sulfate 220 1-06 mg by ity of (50) mg 15:39: mouth. [place] capsule [address] [place] [address] budesonide- Yes 2{puff} Inhale 2 Univers formoteroL 1-06 Puffs. ity of 80-4.5 15:39: [place] mcgactuati Medical on inhaler Branch budesonide- Yes 2{puff} Inhale 2 Univers formoteroL 1-06 Puffs. ity of 160-4.5 [facility]:39[facility] [address] [place] [address] on inhaler Branch gabapentin Yes 400mg Take 400 Un kayla 400 mg 1-06 mg by ity of capsule 15:39: mouth. [address] hydrALAZINE Yes 25mg Take 25 mg Univers 25 mg 1-06 by mouth. ity of tablet 15:39: [address] hydrOXYzine Yes 25mg Take 25 mg Univers 25 mg 1-06 by mouth. ity of tablet 15:39: [address] lidocaine 5 Yes Apply to Un kayla % ointment 06 area(s). ity o f 15:39: [address] triamcinolo Yes Apply to Un kayla ne 06 area(s). ity of acetonide 15:39: [place] 0.1 % cream [address] [place] [address] atorvastati 2019-07 Yes Univer s n 20 mg 1-22 ity of tablet 00:00: [facility] atorvastati 2019-07 Yes Univer s n 20 mg 1-22 ity of tablet 00:00: [facility] atorvastati 2019-07 Yes Univer s n 20 mg -22 ity of tablet 00:00: [facility] atorvastati 2019-07 Yes Univer s n 20 mg -22 ity of tablet 00:00: Medical Branch atorvastati 2020- Yes Univer s n 20 mg 1-22 ity of tablet 00:00: [place] [facility] atorvastati 2020- Yes Univer s n 20 mg 1-22 ity of tablet 00:00: [place] [facility] atorvastati 2019- Yes Univer s n 20 mg 1-22 ity of tablet 00:00: [place] [facility] Branch atorvastati 2020- Yes Univer s n 20 mg 1-22 ity of tablet 00:00: [place] [facility] atorvastati 2019- Yes Univer s n 20 mg 1-22 ity of tablet 00:00: [place] [facility] atorvastati 2019-07 Yes Univer s n 20 mg 1-22 ity of tablet 00:00: [place] [address] Medical Branch atorvastati 2019-07 Yes Univer s n 20 mg 1-22 ity of tablet 00:00: [address] Branch atorvastati 2019-07 Yes Univer s n 20 mg 1-22 ity of tablet 00:00: [place] [facility] Branch atorvastati 2019-07 Yes Univer s n 20 mg 1-22 ity of tablet 00:00: [place] [address] Medical Branch losartan 2020- Yes Univers 100 mg 1-16 ity of tablet 00:00: [place] [facility] Branch cloNIDine 2020- Yes Univers 0.1 mg 1-16 ity of tablet 00:00: [place] Medical Branch losartan 2020- Yes Univers 100 mg 1-16 ity of tablet 00:00: [place] [address] Medical Branch cloNIDine 2020- Yes Univers 0.1 mg 1-16 ity of tablet 00:00: [place] [facility] Branch losartan 2020- Yes Univers 100 mg 1-16 ity of tablet 00:00: [place] [address] Medical Branch cloNIDine 2020- Yes Univers 0.1 mg 1-16 ity of tablet 00:00: [place] [address] Medical Branch losartan 2020- Yes Univers 100 mg 1-16 ity of tablet 00:00: [place] [address] Medical Branch cloNIDine 2020- Yes Univers 0.1 mg 1-16 ity of tablet 00:00: [place] [address] Medical Branch losartan 2020- Yes Univers 100 mg 1-16 ity of tablet 00:00: [place] [address] Medical Branch cloNIDine 2020- Yes Univers 0.1 mg 1-16 ity of tablet 00:00: [place] 00 Medical Branch losartan 2019-2022- No Univers 100 mg -16 24 ity of tablet 00:00: 00:00 [place] 00 :00 Medical Branch cloNIDine 2019-2022- No Univers 0.1 mg -16 24 ity of tablet 00:00: 00:00 [place] 00 :00 Medical Branch losartan 2019-2022- No Univers 100 mg 16 10-02 ity of tablet 00:00: 00:00 [place] 00 :00 Medical Branch cloNIDine 2019-2022- No Univers 0.1 mg 16 24 ity of tablet 00:00: 00:00 [place] 00 :00 [facility] amiodarone 2019-07 Yes Univers 200 mg 1-15 ity of tablet 00:00: [address] SERTraline 2019-07 Yes Univers 50 mg 1-15 ity of tablet 00:00: [address] amiodarone 2019- Yes Univers 200 mg 1-15 ity of tablet 00:00: [address] SERTraline 2019- Yes Univers 50 mg 1-15 ity of tablet 00:00: [address] amiodarone 2019- Yes Univers 200 mg 1-15 ity of tablet 00:00: [address] SERTraline 2019- Yes Univers 50 mg 1-15 ity of tablet 00:00: [address] amiodarone 2019- Yes Univers 200 mg 1-15 ity of tablet 00:00: [address] SERTraline 2020- Yes Univers 50 mg 1-15 ity of tablet 00:00: [address] amiodarone 2020- Yes Univers 200 mg 1-15 ity of tablet 00:00: [address] SERTraline 2020- Yes Univers 50 mg 1-15 ity of tablet 00:00: [address] amiodarone 2020- Yes Univers 200 mg 1-15 ity of tablet 00:00: [address] SERTraline 2020- Yes Univers 50 mg 1-15 ity of tablet 00:00: [address] amiodarone 2020- Yes Univers 200 mg 1-15 ity of tablet 00:00: [address] SERTraline 2020- Yes Univers 50 mg 1-15 ity of tablet 00:00: [place] 00 Medical Branch spironolact 2020 Yes Univer s one 25 mg 1-15 ity of tablet 00:00: [place] [facility] [place] amiodarone 2020- Yes Univers 200 mg 1-15 ity of tablet 00:00: [place] [address] Medical Branch SERTraline 2020 Yes Univers 50 mg 1-15 ity of tablet 00:00: [address] spironolact 2019-07 Yes Univer s one 25 mg 1-15 ity of tablet 00:00: [address] amiodarone 2019-07 Yes Univers 200 mg 1-15 ity of tablet 00:00: [address] Branch SERTraline 2019-07 Yes Univers 50 mg 1-15 ity of tablet 00:00: [address] spironolact 2019-07 Yes Univer s one 25 mg 1-15 ity of tablet 00:00: [address] amiodarone 2019-07 Yes Univers 200 mg 1-15 ity of tablet 00:00: [address] SERTraline 2020 Yes Univers 50 mg 1-15 ity of tablet 00:00: [address] spironolact 2019-07 Yes Univer s one 25 mg 1-15 ity of tablet 00:00: [address] amiodarone 2019-07 Yes Univers 200 mg 1-15 ity of tablet 00:00: [address] Branch SERTraline 2020 Yes Univers 50 mg 1-15 ity of tablet 00:00: [address] spironolact 2019-07 Yes Univer s one 25 mg 1-15 ity of tablet 00:00: [place] [facility] amiodarone 2020- Yes Univers 200 mg 1-15 ity of tablet 00:00: [address] Branch SERTraline 2020 Yes Univers 50 mg 1-15 ity of tablet 00:00: [address] spironolact 2020 Yes Univer s one 25 mg 1-15 ity of tablet 00:00: [address] amiodarone 2020 Yes Univers 200 mg 1-15 ity of tablet 00:00: [address] SERTraline 2020 Yes Univers 50 mg 1-15 ity of tablet 00:00: [address] spironolact 2019-2022- No Unive rs one 25 mg 1-15 03-30 ity of tablet 00:00: 00:00 [place] 00 :00 Medical Branch albuterol 2020- Yes Univers 90 1-10 ity of mcg/actuati 00:00: [place] on inhaler 00 Medical Branch albuterol 2020- Yes Univers 90 1-10 ity of mcg/actuati 00:00: [place] on inhaler Medical Branch albuterol 2020- Yes Univers 90 1-10 ity of mcg/actuati 00:00: [place] on inhaler Medical Branch albuterol 2020- Yes Univers 90 1-10 ity of mcg/actuati 00:00: [place] on inhaler Medical Branch albuterol 2020- Yes Univers 90 1-10 ity of mcg/actuati 00:00: [place] on inhaler Medical Branch albuterol 2020- Yes Univers 90 1-10 ity of mcg/actuati 00:00: [place] on inhaler Medical Branch albuterol 2020- Yes Univers 90 1-10 ity of mcg/actuati 00:00: [place] on inhaler Medical Branch furosemide 2020- Yes Univers 80 mg 1-10 ity of tablet 00:00: [place] [facility] albuterol 2020- Yes Univers 90 1-10 ity of mcg/actuati 00:00: [place] on inhaler Medical Branch furosemide 2020- Yes Univers 80 mg 1-10 ity of tablet 00:00: [place] [facility] albuterol 2020- Yes Univers 90 1-10 ity of mcg/actuati 00:00: [place] on inhaler Medical Branch furosemide 2020- Yes Univers 80 mg 1-10 ity of tablet 00:00: [place] [facility] Branch albuterol 2020- Yes Univers 90 1-10 ity of mcg/actuati 00:00: [place] on inhaler Medical Branch furosemide 2020- Yes Univers 80 mg 1-10 ity of tablet 00:00: [place] [facility] Branch albuterol 2020- Yes Univers 90 1-10 ity of mcg/actuati 00:00: [place] on inhaler Medical Branch furosemide 2020- Yes Univers 80 mg 1-10 ity of tablet 00:00: [place] [facility] Branch albuterol 2020- Yes Univers 90 1-10 ity of mcg/actuati 00:00: [place] on inhaler Medical Branch furosemide 2020- Yes Univers 80 mg 1-10 ity of tablet 00:00: [place] 00 Medical Branch albuterol 2020- Yes Univers 90 1-10 ity of mcg/actuati 00:00: [place] on inhaler 00 Medical Branch furosemide 2020-2022- No Univer s 80 mg 1-10 03-30 ity of tablet 00:00: 00:00 [place] 00 :00 Medical Branch predniSONE 2020-1 Yes Univers 10 mg 1-08 ity of tablet 00:00: [place] 00 Medical Branch predniSONE 2020-1 Yes Univers 10 mg 1-08 ity of tablet 00:00: [place] 00 Medical Branch predniSONE 2020-1 Yes Univers 10 mg 1-08 ity of tablet 00:00: [place] 00 Medical Branch predniSONE 2020-1 Yes Univers 10 mg 1-08 ity of tablet 00:00: 00 Medical Branch predniSONE 2020- Yes Univers 10 mg 1-08 ity of tablet 00:00: [place] 00 Medical Branch predniSONE 2020- Yes Univers 10 mg 1-08 ity of tablet 00:00: 00 Medical Branch predniSONE 2020-2022- No Univer s 10 mg 1-08 03-30 ity of tablet 00:00: 00:00 [place] 00 :00 Medical Branch Lidocaine 5 2018-0 Yes Apply to Un kayla % cream 5-04 area(s) as ity of 00:00: needed for [place] [facility] (scale Branch 7-10). Lidocaine 5 2018-0 Yes Apply to Un kayla % cream 5-04 area(s) as ity of 00:00: needed for [place] [facility] (scale Branch 7-10). Lidocaine 5 2018-0 Yes Apply to Un kayla % cream 5-04 area(s) as ity of 00:00: needed for [place] [facility] (scale Branch 7-10). Lidocaine 5 2018-0 Yes Apply to Un kayla % cream 5-04 area(s) as ity of 00:00: needed for [place] [facility] (scale Branch 7-10). Lidocaine 5 2018-0 Yes Apply to Un kayla % cream 5-04 area(s) as ity of 00:00: needed for [place] [facility] (scale Branch 7-10). Lidocaine 5 2018-0 Yes Apply to Un kayla % cream 5-04 area(s) as ity of 00:00: needed for [place] 00 Pain Medical (scale Branch 7-10). Lidocaine 5 No Apply to U nivers % cream 11-12 area(s) as ity o f 00:00: 00:00 needed for [place] 00 :00 Pain Medical (scale Branch 7-10). Turmeric Yes Take by Karmen 500 MG oral 3-28 mouth Seybold Cap 14:03: 04 Acetaminoph Yes 1{tbl} Take 1 [place] en-Codeine 3-28 tablet by Seyb old #3 300-30 14:01: [...] Yes Apply 1 James sey 250 UNIT/GM 3-28 applicatio Se ybold apply 14:01: n externally [...] Hospi ta tablet 01 daily. l zinc Yes 220mg QD Take 220 [facility] sulfate 8-[address] (ZINCATE) 12:11: mouth [facility]osp[facility] 220 (50) mg 01 daily. l capsule fluocinonid Yes 1{appli Q24H Apply 1 [facility] e (LIDEX) 8-23 cation} applicatio s t 0.05 % 12:11: n [facility]osp[facility] ointment 01 topically l daily as needed. gabapentin 2017-0 Yes 600mg [id number] Take 600 [facility] (NEURONTIN) 8-23 [id number] mg by s t 300 mg 12:11: 3D mouth 3 Hospita capsule 01 (three) l times a day. HYDROcodone 2017-0 Yes 1{tbl} Q8H Take 1 Me thodi -acetaminop 8-[address] hen (NORCO) 12:11: mouth Hospi ta 10-325 mg 01 every 8 l per tablet (eight) hours as needed for moderate pain. levoFLOXaci 2017-0 Yes 500mg QD Take 500 M ethodi [...] 01 daily. l MEQ CR tablet tiZANidine 2016-0 Yes 4mg QD Take 4 mg Me [...] Hospita tablet 01 every l evening. amitriptyli 2017-0 Yes 25mg QD Take 25 mg [facility]i ne (ELAVIL) 8-[address] 25 MG 12:11: nightly. Hospita tablet 01 l carvedilol 2017-0 Yes 25mg Q.5D Take 25 mg M [...] daily as needed. gabapentin 2017-0 Yes 600mg Q.[id number] Take 600 [facility] (NEURONTIN) 8-23 [id number] mg by s t 300 mg 12:11: 3D mouth 3 Hospita capsule 01 (three) l times a day. HYDROcodone 20170 Yes 1{tbl} Q8H Take 1 [facility] -acetaminop 8-[address] hen (NORCO) 12:11: mouth Hospi ta 10-325 mg 01 every 8 l per tablet (eight) hours as needed for moderate pain. levoFLOXaci 2017 Yes 500mg QD Take 500 M ethodi n 8-[address] (LEVAQUIN) 12:11: mouth Hospit a 500 MG 01 daily. For l tablet 10 days. Start date: 02/21/2017 lidocaine 2017-0 Yes 1{appli Q24H Apply 1 [facility] (XYLOCAINE) 8-23 cation} applicatio st 5 % 12:11: n Hospita ointment 01 topically l daily as needed for mild pain. potassium 20170 Yes 10meq QD Take 10 Meth urvashi chloride 8-[address] (K-DUR,KLOR 12:11: mouth Hospi ta -CON) 10 01 daily. l MEQ CR tablet tiZANidine 20170 Yes 4mg QD Take 4 mg [facility] (ZANAFLEX) 8-[address] 4 MG tablet 12:11: nightly. Ho spita 01 l hydrOXYzine 20170 Yes 25mg Q8H Take 25 mg [facility] (ATARAX) 25 8-[address] MG tablet 12:11: every 8 Hospi ta 01 (eight) l hours as needed for itching. b complex 2016 Yes 1{tbl} QD Take [address] [facility] vitamins 8-17 tablet by [facility] tablet 13:[facility]: mouth [facility] 20 daily. Center multivitami 2016-0 Yes 1{tbl} QD Take 1 [facility] [...] times Center daily. gabapentin 2016-0 Yes 300mg Q.[id number] Take [address] [facility] [address] (NEURONTIN) 8-17 [id number] mg by L ukes 300 MG 13:19: 3D mouth 3 Medical capsule 20 (three) Center times daily. HYDROcodone 2016-0 Yes 1{tbl} Take [address] -acetaminop 8-17 tablet by Sammie es hen (NORCO 13:19: mouth Medica l 10-325) 20 every 6 Center 10-325 mg (six) per tablet hours as needed for Pain. acetaminoph 2016-0 Yes 1{tbl} Take [address] en-codeine 8-17 tablet by Pedro Luis s (TYLENOL 13:19: mouth Medical #3) 300-30 20 every 4 Center mg per (four) tablet hours as needed for Pain. amitriptyli 2016-0 Yes 25mg QD Take [address] [facility] ne (ELAVIL) 8-17 by mouth Luke s 25 MG 13:19: nightly. Medical tablet 20 [facility] TiZANidine 2016-0 Yes 4mg Q.[id number] Take [address] [facility] [address] (ZANAFLEX) 8-17 [id number] by mouth 3 [facility] 4 MG 13:19: 3D (three) Medical capsule 20 times Center daily 1 EVERY 8 HRS, AND 1.5 TAB AT BEDTIME. potassium 2016-0 Yes Take by [facility] 99 mg Tab 8-17 [facility] 13:19: Medical 20 Center OMEGA-3S/DH 2016-0 Yes Take by [facility] A/EPA/FISH 8-17 mouth. [facility] OIL (OMEGA 13:19: Medical 3 ORAL) 20 Center valsartan-h 2016-0 Yes 1{tbl} QD Take [address] ydrochlorot 8-17 tablet by Sammie es hiazide 13:19: mouth Medical (DIOVAN-HCT 20 daily. Center ) 320-25 mg per tablet triamcinolo 2016-0 Yes Q.5D Apply [facility] 8-17 topically [facility] (KENALOG) 13:19: 2 (two) Medic al 0.1 % 20 times Center topical daily. ointment b complex 2016-0 Yes 1{tbl} QD Take [address] [facility] [address] vitamins 8-17 tablet by [facility] tablet 13:19: mouth Medical 20 daily. Center multivitami 2016-0 Yes 1{tbl} QD Take [address] n per 8-17 tablet by [facility] tablet 13:19: mouth Medical 20 daily. Center furosemide 2015-0 Yes 40mg Q.5D Take 40 [...] times Center daily. gabapentin 2016-0 Yes 300mg Q.[id number] Take [address] (NEURONTIN) 8-17 [id number] mg by L ukes 300 MG 13:19: [...] [facility] ORAL 13:19: daily. Medical 20 Center ZINC 2016-0 Yes QD Take by [facility] SULFATE 8-17 mouth [facility] ORAL 13:19: daily. Medical 20 Center acetaminoph 2016-0 Yes 1{tbl} Take [address] en-codeine 8-17 tablet by Luke s (TYLENOL 13:19: mouth Medical #3) 300-30 20 every 4 Center mg per (four) tablet hours as needed for Pain. amitriptyli 2015-0 Yes 25mg QD Take [address] [facility] ne (ELAVIL) 8-17 by mouth Luke s 25 MG 13:19: nightly. Medical tablet 20 [place] TiZANidine 2015- Yes 4mg Q.[id number] Take [address] [facility] [address] (ZANAFLEX) 8-17 [id number] by mouth 3 [facility] 4 MG 13:19: 3D (three) Medical capsule 20 times Center daily 1 EVERY 8 HRS, AND 1.5 TAB AT BEDTIME. potassium 2015- Yes Take by [facility] 99 mg Tab 8-17 [facility] 13:19: Medical 20 [place] OMEGA-3S/DH 2015- Yes Take by [facility] A/EPA/FISH 8-17 [facility] OIL (OMEGA 13:19: Medical 3 ORAL) 20 [place] valsartan-h Yes 1{tbl} QD Take [address] ydrochlorot 8- tablet by Sammie es hiazide 13:19: mouth Medical (DIOVAN-HCT 20 daily. [facility] ) 320-25 mg per tablet triamcinolo 2015-0 Yes Q.5D Apply [facility]-17 topically [facility] (KENALOG) 13:19: 2 (two) Medic al 0.1 % 20 times Center topical daily. ointment b complex 2015- Yes 1{tbl} QD Take [address] [facility] vitamins 8-17 tablet by [facility] tablet 13:19: mouth Medical 20 daily. [place] multivitami 2015-0 Yes 1{tbl} QD Take [address] n per 8-17 tablet by [facility] tablet 13:19: mouth Medical 20 daily. [place] furosemide 2015-0 Yes 40mg Q.5D Take 40 [...] Medical tablet 20 times Center daily. gabapentin 2015-0 Yes 300mg Q.[id number] Take [address] (NEURONTIN) 8-17 [id number] mg by L ukes 300 MG 13:19: 3D mouth 3 Medical capsule 20 (three) Center times daily. HYDROcodone 2016-0 Yes 1{tbl} Take [address] -acetaminop 8-17 tablet by Sammie newsome (NORCO 13:19: mouth Medica l 10-325) 20 every 6 Center 10-325 mg (six) per tablet hours as needed for Pain. acetaminoph 2016-0 Yes 1{tbl} Take [address] en-codeine 8-17 tablet by Pedro Luis moran (TYLENOL 13:19: mouth Medical #3) 300-30 20 every 4 Center mg per (four) tablet hours as needed for Pain. ZINC 2016-0 Yes QD Take by [facility] SULFATE 8-17 mouth [facility] ORAL 13:19: daily. Medical 20 [place] acetaminoph 2015-0 Yes 1{tbl} Take [address] en-codeine 8-17 tablet by Pedro Luis moran (TYLENOL 13:19: mouth Medical #3) 300-30 20 every 4 Center mg per (four) tablet hours as needed for Pain. amitriptyli 2015-0 Yes 25mg QD Take [address] [facility] ne (ELAVIL) 8-17 by mouth Luke s 25 MG 13:19: nightly. Medical tablet 20 Center TiZANidine 2015-0 Yes 4mg Q.[id number] Take [address] [facility] [address] (ZANAFLEX) 8-17 [id number] by mouth 3 [facility] 4 MG 13:19: 3D (three) Medical capsule 20 times Center daily 1 EVERY 8 HRS, AND 1.5 TAB AT BEDTIME. potassium 2015-0 Yes Take by [facility] 99 mg Tab 8-17 [facility]. [facility] 13:19: Medical 20 [place] OMEGA-3S/DH 2016-0 Yes Take by [facility] A/EPA/FISH 8-17 mouth. [facility] OIL (OMEGA 13:19: Medical 3 ORAL) 20 Center valsartan-h 2015-0 Yes 1{tbl} QD Take [address] ydrochlorot 8-17 tablet by Sammie castillo hiazide 13:19: mouth Medical (DIOVAN-HCT 20 daily. Center ) 320-25 mg per tablet triamcinolo 2016-0 Yes Q.5D Apply [facility]-17 topically [facility] (KENALOG) 13:19: 2 (two) Medic al 0.1 % 20 times Center topical daily. ointment b complex 2016-0 Yes 1{tbl} QD Take [address] [facility] vitamins 8-17 tablet by [facility] tablet 13:19: mouth Medical 20 daily. [place] multivitami 2016-0 Yes 1{tbl} QD Take [address] n per 8-17 tablet by [facility] tablet 13:19: mouth Medical 20 daily. [place] amitriptyli 0 Yes 25mg QD Take [address] [address] ne (ELAVIL) 8-17 by mouth Luke s 25 MG 13:19: nightly. Medical tablet 20 [place] furosemide 0 Yes 40mg Q.5D Take 40 mg C [...] Medical tablet 20 times Center daily. gabapentin 0 Yes 300mg Q.[id number] Take [address] (NEURONTIN) 8-17 [id number] mg by L ukes 300 MG 13:19: 3D mouth 3 Medical capsule 20 (three) Center times daily. HYDROcodone 2015-0 Yes 1{tbl} Take [address] -acetaminop 8-17 tablet by Sammie es hen (NORCO 13:19: mouth Medica l 10-325) 20 every 6 Center 10-325 mg (six) per tablet hours as needed for Pain. ZINC 2015-0 Yes QD Take by [facility] SULFATE 8-17 mouth [facility] ORAL 13:19: daily. Medical 20 Center acetaminoph 2015-0 Yes 1{tbl} Take [address] en-codeine 8-17 tablet by Luke s (TYLENOL 13:19: mouth Medical #3) 300-30 20 every 4 Center mg per (four) tablet hours as needed for Pain. amitriptyli 0 Yes 25mg QD Take [address] [facility] ne (ELAVIL) 8-17 by mouth Luke s 25 MG 13:19: nightly. Medical tablet 20 [place] TiZANidine 2015-0 Yes 4mg Q.[id number] Take [address] [facility] [address] (ZANAFLEX) 8-17 [id number] by mouth 3 [facility] 4 MG 13:19: 3D (three) Medical capsule 20 times Center daily 1 EVERY 8 HRS, AND 1.5 TAB AT BEDTIME. potassium 2015-0 Yes Take by [facility] 99 mg Tab 8-17 [facility]. [facility] 13:19: Medical 20 Center OMEGA-3S/DH 2016-0 Yes Take by [facility] A/EPA/FISH 8-17 mouth. [facility] OIL (OMEGA 13:19: Medical 3 ORAL) 20 [place] TiZANidine 2016-0 Yes 4mg Q.[id number] Take [address] [address] (ZANAFLEX) 8-17 [id number] by mouth 3 [facility] 4 MG 13:19: 3D (three) Medical capsule 20 times Center daily 1 EVERY 8 HRS, AND 1.5 TAB AT BEDTIME. valsartan-h 2015- Yes 1{tbl} QD Take 1 [...] [facility] tablet 13:19: mouth Medical 20 daily. [place] multivitami 2015-0 Yes 1{tbl} QD Take [address] n per 8-17 tablet by [facility] tablet 13:19: mouth Medical 20 daily. [place] furosemide 2015-0 Yes 40mg Q.5D Take 40 [...] times Center daily. gabapentin 2016-0 Yes 300mg Q.[id number] Take [address] (NEURONTIN) 8-17 [id number] mg by L ukes 300 MG 13:19: 3D mouth 3 Medical capsule 20 (three) Center times daily. HYDROcodone Yes 1{tbl} Take [address] -acetaminop 8-17 tablet by Sammie anna hen (NORCO 13:19: mouth Medica l 10-325) 20 every 6 Center 10-325 mg (six) per tablet hours as needed for Pain. potassium Yes Take by [facility] mg Tab 8-17 [facility]. [facility] 13:19: Medical 20 [place] ZINC 2015-0 Yes QD Take by [facility] SULFATE 8-17 mouth [facility] ORAL 13:19: daily. Medical 20 [place] OMEGA-3S/DH Yes Take by [facility] A/EPA/FISH 8-17 mouth. [facility] OIL (OMEGA 13:19: Medical 3 ORAL) 20 Center valsartan-h Yes 1{tbl} QD Take [address] ydrochlorot 8-17 tablet by Sammie es hiazide 13:19: mouth Medical (DIOVAN-HCT 20 daily. Center ) 320-25 mg per tablet triamcinolo Yes Q.5D Apply [facility] topically [facility] (KENALOG) 13:19: 2 (two) Medic al 0.1 % 20 times Center topical daily. ointment Nystatin 2014-07 Yes Apply to Kelse y 645437 2-02 affected [place] UNIT/GM 00:00: area twice apply 00 daily externally Cream Nystatin 2014-07 Yes 1U Apply 1 Karmen 370422 2-02 unit [place] UNIT/GM 00:00: topically apply [...] Medical 0.1 % daily. Branch ointment triamcinolo 2022- No Apply to U nivers ne 3-12 03-30 area(s) 2 ity of acetonide 00:00: 00:00 (two) [place] (KENALOG) 00 :00 times Medical 0.1 % daily. Branch ointment [...] ity of 300 mg 00:00: [place] tablet Medical Branch allopurinol Yes Univer s (ZYLOPRIM) [...] of 300 mg 00:00: [place] tablet 00 [facility] allopurinol Yes Univer s (ZYLOPRIM) 2-08 ity of 300 mg 00:00: [place] tablet 00 [facility] allopurinol Yes Univer s (ZYLOPRIM) 2-08 ity of 300 mg 00:00: [place] tablet 00 [facility] allopurinol Yes Univer s (ZYLOPRIM) 2-08 ity of 300 mg 00:00: [place] tablet 00 [facility] allopurinol Yes Univer s (ZYLOPRIM) 2-08 ity of 300 mg 00:00: [place] tablet 00 [facility] furosemide Yes Univers (LASIX) 40 2-03 ity of mg tablet 00:00: [place] 00 [facility] furosemide Yes Univers (LASIX) 40 2-03 ity of mg tablet 00:00: [place] 00 [facility] furosemide Yes Univers (LASIX) 40 2-03 ity of mg tablet 00:00: [place] 00 [facility] furosemide Yes Univers (LASIX) 40 2-03 ity of mg tablet 00:00: [place] 00 [facility] furosemide Yes Univers (LASIX) 40 2-03 ity of mg tablet 00:00: [place] 00 [facility] furosemide 2022- No Univer s (LASIX) 40 2-03 03-24 ity of mg tablet 00:00: 00:00 [place] 00 :00 [facility] furosemide 3- No Univer s (LASIX) 40 2-03 03-24 ity of mg tablet 00:00: 00:00 [place] 00 :00 [facility] Vital Signs Vital Name Observation Time Observation Value Comments Source Heart rate 2022-10-09 98 /min [facility] 00:37:00 [facility] Respiratory rate 2022-10-09 18 /min [facility] 00:37:00 [facility] Oxygen saturation 2022-10-09 97 /min [facility] in Arterial blood 00:37:00 [facility] by Pulse oximetry [place] Systolic blood 2022-10-09 129 mm[Hg] [place] of pressure 00:22:00 [facility] Diastolic blood 2022-10-09 82 mm[Hg] [place] o f pressure 00:22:00 [facility] Body temperature 2022-10-09 36.44 Carolyne [facility] 00:22:00 [facility] Body weight 2022-10-08 118.48 kg [facility] 07:57:00 [facility] BMI 2022-10-08 40.91 kg/m2 [facility] 07:57:00 [facility] Body height 2022-10-05 170.2 cm [facility] 01:39:00 [facility] Systolic blood 2022-10-07 141 mm[Hg] [facility] of pressure 01:05:00 [facility] Diastolic blood 2022-10-07 99 mm[Hg] [place] o f pressure 01:05:00 [facility] Body temperature 2022-10-07 35.83 Carolyne [facility] 01:05:00 [facility] Respiratory rate 2022-10-07 16 /min [facility] 01:05:00 [facility] Oxygen saturation 2022-10-07 90 /min [facility] in Arterial blood 00:07:20 [facility] by Pulse oximetry Branch Heart rate 2022-10-06 90 /min [facility] 22:46:17 [facility] Body height 2022-10-05 170.2 cm [facility] 01:39:00 [facility] Body weight 2022-10-05 123.469 kg bed scale was [facility] 01:39:00 used per pt she [place] [facility] can not stand Branch on the regular scale BMI 2022-10-05 42.63 kg/m2 [facility] 01:39:00 [facility] Systolic blood 2021-12-10 146 mm[Hg] Karmen Seybol d pressure 13:21:00 Diastolic blood 2021-12-10 87 mm[Hg] Karmen Hollingswortho ld pressure 13:21:00 Heart rate 2021-12-10 78 /min Karmen Blumybold 13:21:00 Body temperature 2021-12-10 36.11 Carolyne Karmen Blumyb old 13:21:00 Respiratory rate 2021-12-10 14 /min Karmen Blumyb old 13:21:00 Body height 2021-12-10 170.2 cm Karmen Blumybold 13:21:00 Body weight 2021-12-10 126.1 kg Karmen Seybold 13:21:00 BMI 2021-12-10 43.54 kg/m2 Karmen Blumybold 13:21:00 Oxygen saturation 2021-12-10 95 /min Karmen hauser in Arterial blood 13:21:00 by Pulse oximetry Oxygen saturation 2021-11-11 96 /min Karmen hauser in Arterial blood 19:28:00 by Pulse oximetry Systolic blood 2021-11-11 150 mm[Hg] Karmen Hollingsworthol d pressure 19:28:00 Diastolic blood 2021-11-11 83 mm[Hg] Karmen Hollingswortho ld pressure 19:28:00 Heart rate 2021-11-11 60 /min Karmen Hollingsworthold 19:28:00 Body temperature 2021-11-11 36.61 Carolyne Karmen Hollingsworth old 19:28:00 Respiratory rate 2021-11-11 16 /min Karmen Hollingsworth old 19:28:00 Body height 2021-11-11 170.2 cm Karmen Valdes 19:28:00 Body weight 2021-11-11 126.735 kg Karmen Valdes 19:28:00 BMI 2021-11-11 43.76 kg/m2 Karmen Holl[facility]worthold 19:28:00 Systolic blood 2021-10-23 152 mm[Hg] [facility] of pressure 21:36:00 [facility] Diastolic blood 2021-10-23 91 mm[Hg] University o f pressure 21:36:00 [facility] Heart rate 2021-10-23 63 /min [facility] of 21:36:00 [facility] Body temperature 2021-10-23 36.94 Carolyne [facility] of 21:36:00 [facility] Respiratory rate 2021-10-23 20 /min [facility] of 21:36:00 [facility] Body height 2021-10-23 170.2 cm University of 21:36:00 [facility] Body weight 2021-10-23 127.914 kg University of 21:36:00 [facility] BMI 2021-10-23 44.17 kg/m2 [facility] of 21:36:00 [facility] Systolic blood 2022-08-14 188 mm[Hg] pt [facility] pressure 18:29:00 asymptomatic, Hospital informed Diastolic blood 2022-08-14 112 mm[Hg] pt [facility] pressure 18:29:00 asymptomatic, Hospital informed Heart rate 2022-08-14 114 /min [facility] 18:29:00 Hospital Body temperature 2022-08-14 36.56 Carolyne [facility] 18:29:00 Hospital Respiratory rate 2022-08-14 18 /min [facility] 18:29:00 [facility] Body height 2022-08-14 170.2 cm [facility] 18:29:00 [facility] Body weight 2022-08-14 127.007 kg [facility] 18:29:00 Hospital BMI 2022-08-14 43.85 kg/m2 [facility] 18:29:00 Hospital Procedures Procedure Date / Time Performing Clinician Source Performed EXTERNAL PROVIDER RECORDS 2022-10-14 05:01:00 Doctor Unassigned, [facility] ACTIVATED PARTIAL THRMPLAS 2022-10-08 14:23:00 Luis Miguel [facility] MAGNESIUM 2022-10-08 05:39:00 Tono [facility] BASIC METABOLIC PANEL (NA, 2022-10-08 05:39:00 Garo Power [facility] K, CL, CO2, GLUCOSE, BUN, Medica l Branch CREATININE, CA) ACTIVATED PARTIAL THRMPLAS 2022-10-08 05:39:00 Luis Miguel [facility] N-TERMINAL PRO-BNP 2022-10-08 05:39:00 Garo Power [facility] ACTIVATED PARTIAL THRMPLAS 2022-10-07 21:40:00 Luis Miguel [facility] ACTIVATED PARTIAL THRMPLAS 2022-10-07 21:40:00 Luis Miguel [facility] LACTIC ACID WHOLE BLOOD 2022-10-07 17:43:00 Tono [facility] LACTIC ACID WHOLE BLOOD 2022-10-07 17:43:00 Tono [facility] MAGNESIUM 2022-10-07 11:25:00 Rikki Marie [facility] BASIC METABOLIC PANEL (NA, 2022-10-07 11:25:00 Rikki Marie [facility] K, CL, CO2, GLUCOSE, BUN, Medica l Branch CREATININE, CA) ACTIVATED PARTIAL THRMPLAS 2022-10-07 11:25:00 Luis Miguel [facility] MAGNESIUM 2022-10-07 11:25:00 Rikki Marie [facility] BASIC METABOLIC PANEL (NA, 2022-10-07 11:25:00 Rikki Marie [facility] K, CL, CO2, GLUCOSE, BUN, Medica l Branch CREATININE, CA) ACTIVATED PARTIAL THRMPLAS 2022-10-07 11:25:00 Luis Miguel [facility] CARDIAC CATHETERIZATION 2022-10-06 23:50:46 Nadia, [facility] CARDIAC CATHETERIZATION 2022-10-06 23:50:46 Nadia, [facility] CARDIAC CATHETERIZATION 2022-10-06 23:50:46 Nadia, [facility] CARDIAC CATHETERIZATION 2022-10-06 23:50:46 Nadia, [facility] CARDIAC CATHETERIZATION 2022-10-06 23:50:46 Nadia, [facility] CARDIAC CATHETERIZATION 2022-10-06 23:50:46 Nadia, [facility] ACTIVATED PARTIAL THRMPLAS 2022-10-06 14:31:00 Luis Miguel [facility] ACTIVATED PARTIAL THRMPLAS 2022-10-06 14:31:00 Luis Miguel [facility] MAGNESIUM 2022-10-06 09:03:00 Rikki Marie [facility] BASIC METABOLIC PANEL (NA, 2022-10-06 09:03:00 Rikki Marie [facility] K, CL, CO2, GLUCOSE, BUN, Medica l Branch CREATININE, CA) MAGNESIUM 2022-10-06 09:03:00 Rikki Marie [facility] BASIC METABOLIC PANEL (NA, 2022-10-06 09:03:00 [facility], CO2, GLUCOSE, BUN, Medica l Branch CREATININE, CA) ACTIVATED PARTIAL THRMPLAS 2022-10-06 01:43:00 Luis Miguel [facility] ACTIVATED PARTIAL THRMPLAS 2022-10-06 01:43:00 Luis Miguel [facility] ACTIVATED PARTIAL THRMPLAS 2022-10-05 18:02:00 Luis Miguel, [facility] ACTIVATED PARTIAL THRMPLAS 2022-10-05 18:02:00 Luis Miguel [facility] MAGNESIUM 2022-10-05 10:43:00 Tono [facility] BASIC METABOLIC PANEL (NA, 2022-10-05 10:43:00 Garo Power [facility] K, CL, CO2, GLUCOSE, BUN, Medica l Branch CREATININE, CA) ACTIVATED PARTIAL THRMPLAS 2022-10-05 10:43:00 Luis Miguel [facility] MAGNESIUM 2022-10-05 10:43:00 Tono [facility] BASIC METABOLIC PANEL (NA, 2022-10-05 10:43:00 Garo Power [facility] K, CL, CO2, GLUCOSE, BUN, Medica l Branch CREATININE, CA) ACTIVATED PARTIAL THRMPLAS 2022-10-05 10:43:00 Luis Miguel [facility] ACTIVATED PARTIAL THRMPLAS 2022-10-05 03:16:00 Luis Miguel [facility] ACTIVATED PARTIAL THRMPLAS 2022-10-05 03:16:00 Luis Miguel [facility] MAGNESIUM 2022-10-04 17:22:[address] [facility] BASIC METABOLIC PANEL (NA, 2022-10-04 17:22:00 Raulito [facility] K, CL, CO2, GLUCOSE, BUN, William Medica l Branch CREATININE, CA) ACTIVATED PARTIAL THRMPLAS 2022-10-04 17:22:00 Luis Miguel [facility] MAGNESIUM 2022-10-04 17:22:00 Rangel Cabezas [facility] BASIC METABOLIC PANEL (NA, 2022-10-04 17:22:00 Raulito [facility] K, CL, CO2, GLUCOSE, BUN, William Medica Branch CREATININE, CA) ACTIVATED PARTIAL THRMPLAS 2022-10-04 17:22:00 Luis Miguel [facility] MAGNESIUM 2022-10-04 10:10:00 Luis Miguel [facility] BASIC METABOLIC PANEL (NA, 2022-10-04 10:10:00 Luis Miguel, [facility] K, CL, CO2, GLUCOSE, BUN, Bill Medica l Branch CREATININE, CA) VANCOMYCIN TROUGH 2022-10-04 10:10:00 Raulito [facility] MAGNESIUM 2022-10-04 10:10:00 Luis Miguel [facility] BASIC METABOLIC PANEL (NA, 2022-10-04 10:10:00 Luis Miguel [facility] K, CL, CO2, GLUCOSE, BUN, Bill Medica l Branch CREATININE, CA) VANCOMYCIN TROUGH 2022-10-04 10:10:00 Rangel Cabezas [facility] MAGNESIUM 2022-10-04 03:16:00 Candelario Aguiar [facility] BASIC METABOLIC PANEL (NA, 2022-10-04 03:16:00 Candelario Aguiar [facility] K, CL, CO2, GLUCOSE, BUN, Medica l Branch CREATININE, CA) MAGNESIUM 2022-10-04 03:16:00 Candelario Aguiar [facility] BASIC METABOLIC PANEL (NA, 2022-10-04 03:16:00 Candelario Aguiar [facility] K, CL, CO2, GLUCOSE, BUN, Medica l Branch CREATININE, CA) HB ECG ROUTINE & RHYTHM 2022-10-04 02:54:01 Theron Bolanos [facility] HB ECG ROUTINE & RHYTHM 2022-10-04 02:54:01 Theron Bolanos [facility] ACTIVATED PARTIAL THRMPLAS 2022-10-04 02:05:00 [facility] 2022-10-04 02:05:00 Luis Miguel, [facility] ACTIVATED PARTIAL THRMPLAS 2022-10-03 18:47:00 Luis Miguel, [facility] ACTIVATED PARTIAL THRMPLAS 2022-10-03 18:47:00 Luis Miguel, [facility] AC PANEL 20 + LACTIC ACID 2022-10-03 10:38:00 Luis Miguel, [facility] AC PANEL 20 + LACTIC ACID 2022-10-03 10:38:00 Luis Miguel, [facility] URINALYSIS 2022-10-03 09:08:00 Kyler [facility] URINALYSIS 2022-10-03 09:08:00 Kyler [facility] MAGNESIUM 2022-10-03 09:04:00 Kyler [facility] BASIC METABOLIC PANEL (NA, 2022-10-03 09:04:00 ChávezAaron [facility] K, CL, CO2, GLUCOSE, BUN, Medica l Branch CREATININE, CA) CBC WITH DIFF 2022-10-03 09:04:00 [facility] PROTHROMBIN TIME / INR 2022-10-03 09:04:00 Theron Bolanos [facility] ACTIVATED PARTIAL THRMPLAS 2022-10-03 09:04:00 Luis Miguel [facility] HIV 1/2 AG-AB WITH REFLEX 2022-10-03 09:04:00 Rangel Cabezas [facility] MAGNESIUM 2022-10-03 09:04[facility] (NA, 2022-10-03 09:04:00 Aaron Chávez [facility] K, CL, CO2, GLUCOSE, BUN, Medica l Branch CREATININE, CA) CBC WITH DIFF 2022-10-03 09:04:00 Kyler [facility] PROTHROMBIN TIME / INR 2022-10-03 09:04:00 Theron Bolanos [facility] ACTIVATED PARTIAL THRMPLAS 2022-10-03 09:04:00 Theron Bolanos [facility] HIV 1/2 AG-AB WITH REFLEX 2022-10-03 09:04:00 Rangel Cabezas [facility] AC PANEL 20 + LACTIC ACID 2022-10-03 00:41:00 [facility] AC[facility] 2022-10-03 00:41:00 [facility] + LACTIC ACID 2022-10-02 22:24:00 Rangel Cabezas [facility] AC PANEL 20 + LACTIC ACID 2022-10-02 22:24:00 Rangel Cabezas [facility] TRANSTHORACIC ECHO (TTE) 2022-10-02 19:23:42 Aaron Chávez [facility] COMPLETE W/ CONTRAST [facility] TRANSTHORACIC ECHO (TTE) 2022-10-02 19:23:42 Aaron Chávez [facility] COMPLETE W/ CONTRAST [facility] BLOOD CULTURE SCREEN 2022-10-02 18:02:[address] [facility] BLOOD CULTURE SCREEN 2022-10-02 18:02:[address] [facility] BLOOD CULTURE SCREEN 2022-10-02 18:01:[address] [facility] BLOOD CULTURE SCREEN 2022-10-02 18:01:[address] [facility] LACTIC ACID WHOLE BLOOD 2022-10-02 17:10[facility] 2022-10-02 17:10:00 Kyler [facility] C-REACTIVE PROTEIN 2022-10-02 17:02[facility]22-10-02 17:02:00 Kyler [place] [facility] IR[facility] PANEL 2022-10-02 17:02:00 [facility] PROTHROMBIN TIME / INR 2022-10-02 17:02:00 [facility] ACTIVATED PARTIAL THRMPLAS 2022-10-02 17:02:00 Kyler [facility] SYPHILIS IGG/IGM 2022-10-02 17:02:[address] [facility] C-REACTIVE PROTEIN 2022-10-02 17:02:00 Kyler [facility] FREE T4 2022-10-02 17:02:00 [facility] IRON PANEL 2022-10-02 17:02:00 [facility] PROTHROMBIN TIME / INR 2022-10-02 17:02:00 [facility] ACTIVATED PARTIAL THRMPLAS 2022-10-02 17:02:00 [facility] SYPHILIS IGG/IGM 2022-10-02 17:02:[address] [facility] MAGNESIUM 2022-10-02 17:01:[address] [facility] FERRITIN SERUM 2022-10-02 17:01:00 [facility] TROPONIN I 2022-10-02 17:01:00 [facility] THYROID STIMULATING 2022-10-02 17:01:00 Kyler [facility] HORMONE [facility] HEPATIC FUNCTION PANEL 2022-10-02 17:01:00 Kyler [facility] ([id number]) (ALB,T.PRO,BILI Medical Branch T,BU/BC,ALT,AST,ALK PHOS) BASIC METABOLIC PANEL (NA, 2022-10-02 17:01:00 [facility] K, CL, CO2, GLUCOSE, BUN, Medica l Branch CREATININE, CA) SEDIMENTATION RATE 2022-10-02 17:01:00 Kyler [facility] CBC WITH DIFF 2022-10-02 17:01:00 [facility] GLYCOSYLATED HEMOGLOBIN 2022-10-02 17:01:00 [facility] (A1C[facility] N-TERMINAL PRO-BNP 2022-10-02 17:01:00 Kyler [facility] Medical [place] MAGNESIUM 2022-10-02 17:01:00 Rangel Cabezas [facility] William [facility] FERRITIN SERUM 2022-10-02 17:01:00 [facility] TROPONIN I 2022-10-02 17:01:00 [facility] THYROID STIMULATING 2022-10-02 17:01:00 Kyler [facility] HORMONE [facility] HEPATIC FUNCTION PANEL 2022-10-02 17:01:00 Kyler [facility] ([id number]) (ALB,T.PRO,BILI [facility] T,BU/BC,ALT,AST,ALK PHOS) BASIC METABOLIC PANEL (NA, 2022-10-02 17:01:00 [facility] K, CL, CO2, GLUCOSE, BUN, Medica l Branch CREATININE, CA) SEDIMENTATION RATE 2022-10-02 17:01:00 Kyler [facility] CBC WITH DIFF 2022-10-02 17:01:00 [facility] GLYCOSYLATED HEMOGLOBIN 2022-10-02 17:01:00 [facility] (A1C[facility] N-TERMINAL PRO-BNP 2022-10-02 17:01:00 Kyler [facility] HB ECG ROUTINE & RHYTHM 2022-10-02 16:22:30 Kyler [facility] HB ECG ROUTINE & RHYTHM 2022-10-02 16:22:[facility] GLU[facility]SE (AUTOMATED) 2022-10-02 15:38:00 Moira Bhakta [facility] POCT GLUCOSE (AUTOMATED) 2022-10-02 15:38:00 Moira Bhakta [facility] AC PANEL 20 + LACTIC ACID 2022-10-02 15:26:00 [facility] + LACTIC ACID 2022-10-02 15:26:00 Aaron Chávez [facility] XR CHEST 1 VW 2022-10-02 14:33:00 [facility] XR CHEST 1 VW 2022-10-02 14:33:00 [facility] BI ULTRASOUND BREAST 2022-01-16 17:13:33 Anabel Milligan [facility] LIMITED RIGHT [facility] BI DIAGNOSTIC 2022-01-16 17:03:36 Srini Anabel [facility] TOMOSYNTHESIS BILATERAL [facility] HIGH RISK HPV-THIN PREP 2021-10-23 22:01:00 Anabel Milligan [facility] PAP SMEAR-LIQUID BASED-CP 2021-10-23 22:01:00 Anabel Milligan [facility] Plan of Care Planned Activity Planned Date Details Comments Source Future Scheduled 2022-11-13 COVID-19 VACCINE (#1) [facility] Test 09:33:12 [code = COVID-19 VACCINE (#1)] Future Scheduled 2022-11-13 65+ PNEUMOCOCCAL [facility] Test 09:33:12 VACCINE (1 - PCV) [code = 65+ PNEUMOCOCCAL VACCINE (1 - PCV)] Future Scheduled 2022-11-13 Hepatitis C screening [facility] Test 09:33:12 (procedure) [code = 338215445] Future Scheduled 2022-11-13 SHINGLES VACCINES (1 Met [facility] Test 09:33:12 of 2) [code = SHINGLES VACCINES (1 of 2)] Future Scheduled 2022-11-[address] [facility] Test 09:33:12 malignant neoplasm of cervix (procedure) [code = 955543542] Future Scheduled 2022-11-[address] [facility] Test 09:33:12 SCREENING [code = BREAST CANCER SCREENING] Future Scheduled 2022-11-13 COLONOSCOPY SCREENING [facility] Test 09:33:12 [code = COLONOSCOPY SCREENING] Future Scheduled 2022-11-[address] [facility] Test 09:33:12 malignant neoplasm of lung (procedure) [code = 640795689] Future Scheduled 2022-11-13 INFLUENZA VACCINE [facility] Test 09:33:12 [code = INFLUENZA VACCINE] Future Scheduled 2022-10-02 COVID-19 VACCINE (#1) [facility] Test 07:48:17 [code = COVID-19 VACCINE (#1)] Future Scheduled 2022-10-02 65+ [facility] 07:48:17 VACCINE (1 - PCV) [code = 65+ PNEUMOCOCCAL VACCINE (1 - PCV)] Future Scheduled 2022-10-02 Hepatitis C screening [facility] Test 07:48:17 (procedure) [code = 818473462] Future Scheduled 2022-10-02 SHINGLES VACCINES (1 Met [facility] Test 07:48:17 of 2) [code = SHINGLES VACCINES (1 of 2)] Future Scheduled 2022-10-[address] [facility] Test 07:48:17 malignant neoplasm of cervix (procedure) [code = 141771160] Future Scheduled 2022-10-[address] [facility] Test 07:48:17 SCREENING [code = BREAST CANCER SCREENING] Future Scheduled 2022-10-02 COLONOSCOPY SCREENING [facility] Test 07:48:17 [code = COLONOSCOPY SCREENING] Future Scheduled 2022-10-[address] [facility] Test 07:48:17 malignant neoplasm of lung (procedure) [code = 111102715] Future Scheduled 2022-10-02 INFLUENZA VACCINE [facility] Test 07:48:17 [code = INFLUENZA VACCINE] Future Scheduled 2022-03-04 HEPATITIS B VACCINES Met [facility] Test 21:43:24 (1 of 3 - 3-dose series) [code = HEPATITIS B VACCINES (1 of 3 - 3-dose series)] Future Scheduled 2022-03-04 COVID-19 VACCINE (#1) [facility] Test 21:43:24 [code = COVID-19 VACCINE (#1)] Future Scheduled 2022-03-[address] [facility] Test 21:43:24 malignant neoplasm of cervix (procedure) [code = 226345182] Future Scheduled 2022-03-[address] [facility] Test 21:43:24 SCREENING [code = BREAST CANCER SCREENING] Future Scheduled 2022-03-04 COLONOSCOPY SCREENING [facility] Test 21:43:24 [code = COLONOSCOPY SCREENING] Future Scheduled 2022-03-04 SHINGLES VACCINES (1 Met [facility] Test 21:43:24 of 2) [code = SHINGLES VACCINES (1 of 2)] Future Scheduled 2022-03-04 65+ [facility] Test 21:43:24 VACCINE (1 - PCV) [code = 65+ PNEUMOCOCCAL VACCINE (1 - PCV)] Future Scheduled 2022-03-04 INFLUENZA VACCINE [facility] Test 21:43:24 [code = INFLUENZA VACCINE] Future Scheduled 2021-10-15 COVID-19 VACCINE (1) Met [facility] Test 09:55:38 [code = COVID-19 VACCINE (1)] Future Scheduled 2021-10-[address] [facility] Test 09:55:38 malignant neoplasm of cervix (procedure) [code = 446776341] Future Scheduled 2021-10-[address] [facility] Test 09:55:38 SCREENING [code = BREAST CANCER SCREENING] Future Scheduled 2021-10-15 COLONOSCOPY SCREENING [facility] Test 09:55:38 [code = COLONOSCOPY SCREENING] Future Scheduled 2021-10-15 SHINGLES VACCINES (#1) [facility] Test 09:55:38 [code = SHINGLES VACCINES (#1)] Future Scheduled 2021-10-15 INFLUENZA VACCINE Method [facility] Test 09:55:38 [code = INFLUENZA VACCINE] Encounters Start End Encounter Admission Attending Care Care Encounter Source Date/Time Date/Time Type Type Clinicians Facility Department ID 2020-06-01 Inpatient KALYAN NicolePASHA SURG [id number] [facility] 10:00:[address] 2022-11-10 2022-11-10 Outpatient R DENA [place] [facility] B [id number] Univers 08:00:00 08:00:00 DENA [facility] 2022-11-04 2022-11-04 Outpatient R RANDAL [facility] [id number] Univers 09:00:00 09:00:[facility]22-11-03 2022-11-03 Telephone NATASHA Feldman 1.2.840.114 [id number] Univers 00:00:00 00:00:00 Tenisha L [place] 350.1.13.10 [place] [id number] [facility] [address] 2022-10-28 2022-10-28 Outpatient R [facility] [id number] Univers 13:00:00 13:00:00 ELIAZAR, ity of [place] [facility] 2022-10-27 2022-10-27 Outpatient R ANABEL MILLIGAN [facility] [id number] Univers 10:00:00 10:00:00 ity of [facility] 2022-10-27 2022-10-27 Outpatient R SRINI ANABEL [facility] [id number] Univers 10:00:00 10:00:00 ity [facility] 2022-10-14 2022-10-14 Orders Doctor JOSEPH 1.2.840.114 [id number] Univers 00:00:00 00:00:00 Only Unassigned, YOSELIN 350.1.13.10 ity of [facility] 4.2.7.2.686 [place] [id number] [facility] [address] 2022-10-09 2022-10-09 Transition NATASHA Cardona 1.2.840.114 [id number] Univers 00:00:00 00:00:00 of Care Bettina B [place] 350.1.13.10 [place] [id number] [facility] [address] 2022-10-02 2022-10-08 Inpatient U [facility] [id number] Univers 07:37:00 22:30:00 ELIAZAR, ity [facility] 2022-10-02 2022-10-08 Hospital Moira Bhakta 1.2.840.1 14 [id number] Univers 07:37:00 22:30:00 Encounter Solomon Finley 350.1.13. 10 ity of [facility] 4.2 .7.2.686 Jeovany Lewis [id number] Medical Blanca Rosario [address] [place] 2022-10-06 2022-10-06 Surgery Daniel Lawson 1.2.840.114 [id number] [facility] 17:05:00 20:05:00 N YOSELIN 350.1.13.10 [facility] 4.2.7.2.686 [place] [id number] [facility] [address] 2022-09-16 2022-09-16 Outpatient KARMEN JHA [id number] Karmen 00:00:00 00:00:00 BULL Seybol d 2022-09-15 2022-09-15 Documentat Nery Ballesteros 1.2.840.1 [id number] Methodi 00:00:00 00:00:[place] [address] 3.430.2.7 Hospit a .3.931675 l .8 2022-09-15 2022-09-15 Documentat Nery Ballesteros 1.2.840.1 [id number] Methodi 00:00:00 00:00:[place] [address]1.[address] 3.430.2.7 Hospit a .3.400945 l .8 2022-08-17 2022-08-17 Outpatient KARMEN JHA [id number] Karmen 00:00:00 00:00:00 BULL Seybol d 2022-08-17 2022-08-17 Outpatient KARMEN JHA [id number] Karmen 00:00:00 00:00:00 BULL Seybol d 2022-08-14 2022-08-14 Office Tristan, 1.2.840.1 [id number] Methodi 12:30:00 14:16:13 Visit Dhvanil 50602.1.[address] Kunjan 3.430.2.7 Hospit a .3.911577 l .8 2022-08-14 2022-08-14 Office Tristan, 1.2.840.1 [id number] Methodi 12:30:00 14:16:13 Visit Dhvanil 86288.1.[address] Kunjan 3.430.2.7 Hospit a .3.262613 l .8 2022-08-14 2022-08-14 Travel 1.2.840.1 1.2.061.274 [id number] Methodi 00:00:00 00:00:[address] 3.430.2.7 0.2.7.3.698 Ho spita .3.226588 084.8 l .8 2022-08-14 2022-08-14 Travel 1.2.840.1 1.2.404.385 [id number] Methodi 00:00:00 00:00:[address] 3.430.2.7 0.2.7.3.698 Ho spita .3.305620 084.8 l .8 2022-08-12 2022-08-12 Abstract Nery Ballesteros 1.2.840.1 [id number] Methodi 00:00:00 00:00:[address] 3.430.2.7 Hospit a .3.166577 l .8 2022-08-12 2022-08-12 Abstract Nery Ballesteros 1.2.840.1 [id number] Methodi 00:00:00 00:00:[address] 3.430.2.7 Hospit a .3.404083 l .8 2022-07-17 2022-07-17 Outpatient KARMEN JHA [id number] Karmen 00:00:00 00:00:00 BULL Seybol d 2022-07-08 2022-07-08 Outpatient KARMEN JHA [id number] Karmen 00:00:00 00:00:00 BULL Seybol d 2022-06-25 2022-06-25 Outpatient KARMEN JHA [id number] Karmen 00:00:00 00:00:00 BULL Seybol d 2022-06-23 2022-06-23 Outpatient KARMEN JHA [id number] Karmen 00:00:00 00:00:00 BULL Seybol d 2022-06-19 2022-06-19 Outpatient PREZAS, KARMEN HARPER [id number] Karmen 00:00:00 00:00:00 BULL Seybol d 2022-05-29 2022-05-29 Outpatient PREZAS, KARMEN HARPER [id number] Karmen 09:30:00 09:30:00 BULL Seybol d 2022-05-01 2022-05-01 Outpatient PREZAS, KARMEN HARPER [id number] Karmen 00:00:00 00:00:00 BULL Seybol d 2022-04-23 2022-04-23 Outpatient LAB90 KARMEN HARPER [id number] Karmen 17:15:00 17:15:00 Seybol d 2022-04-23 2022-04-23 Outpatient HUNDL, KARMEN HARPER [id number] Karmen 16:30:00 16:30:00 CECY Seybol d 2022-03-23 2022-03-23 Outpatient PREZAS, KARMEN HARPER [id number] Karmen 00:00:00 00:00:00 BULL Seybol d 2022-03-19 2022-03-19 Office Pablo Jha 1.2.840.114 [id number] Karmen 13:45:00 14:15:00 Visit Bull Ly 350.1.13.13 Se ybold 1.2.7.2.686 [id number] 2022-03-18 2022-03-18 Outpatient PREZAS, KARMEN HARPER [id number] Karmen 08:45:00 08:45:00 BULL Seybol d 2022-03-11 2022-03-11 Outpatient PREZAS, KARMEN HARPER [id number] Karmen 00:00:00 00:00:00 BULL Seybol d 2022-02-25 2022-02-25 Office YudelkaPablo 1.2.840.114 [id number] Karmen 09:00:00 09:30:00 Visit Bulltrisha Ly 350.1.13.13 Se ybold 1.2.7.2.686 [id number] 0 2022-02-12 2022-02-12 Outpatient LAB90 KARMEN HARPER [id number] Karmen 11:10:00 11:10:00 Seybol d 2022-02-12 2022-02-12 Outpatient KARMEN JHA [id number] Karmen 00:00:00 00:00:00 BULL Seybol d 2022-01-28 2022-01-28 Office Pablo Jha 1.2.840.114 [id number] Karmen 15:00:00 15:30:00 Visit Bull Ly 350.1.13.13 Se ybold 1.2.7.2.686 [id number] 0 2022-01-28 2022-01-28 Outpatient KARMEN JHA [id number] Karmen 08:00:00 08:00:00 BULL Seybol d 2022-01-16 2022-01-16 [facility] Anabel Milligan [facility] 1.2.840.114 [id number] Univers 11:05:17 23:59:00 Encounter SPECIALTY 350.1.13.10 ity of CARE 4.2.7.2.686 [facility] CENTER AT [id number] [place] yen BEE 800 [facility] 2022-01-16 2022-01-16 Outpatient R ANABEL MILLIGAN [facility] [id number] Univers 11:04:50 11:04:00 ity of [facility] 2022-01-16 2022-01-16 [facility] 1.2.840.114 [id number] Univers 11:00:00 11:04:00 Encounter SPECIALTY 350.1.13.10 ity of CARE 4.2.7.2.686 [facility] CENTER AT [id number] [place] yen BEE 800 [facility] 2021-12-11 2021-12-11 [place] Anabel Milligan [facility] 1.2.840.11 [id number] Univers 00:00:00 00:00:00 MALACHI 350.1.13.10 it y of PEDIATRIC 4.2.7.2.686 [facility] [id number] [address] 2021-12-10 2021-12-10 Office Pablo Jha 1.2.840.114 [id number] [place]en 08:15:00 08:45:00 Visit Bull Ly 350.1.13.13 Se ybold 1.2.7.2.686 [id number] 0 2021-12-09 2021-12-09 Outpatient KARMEN JHA [id number] Karmen 00:00:00 00:00:00 BULL Seybol d 2021-12-04 2021-12-04 Outpatient LAB90 KARMEN HARPER [id number] Karmen 08:55:00 08:55:00 Seybol d 2021-12-01 2021-12-01 Outpatient KARMEN JHA [id number] Karmen 00:00:00 00:00:00 BULL Seybol d 2021-12-01 2021-12-01 Outpatient KARMEN JHA [id number] Karmen 00:00:00 00:00:00 BULL Seybol d 2021-11-24 2021-11-24 Telephone Anabel Milligan 1.2.840.11 [id number] Univers 00:00:00 00:00:00 MALACHI 350.1.13.10 y of PEDIATRIC 4.2.7.2.686 [facility] [id number] [address] 2021-11-14 2021-11-14 Outpatient KARMEN JHA [id number] Karmen 00:00:00 00:00:00 BULL Seybol d 2021-11-13 2021-11-13 Outpatient KARMEN JHA [id number] Karmen 00:00:00 00:00:00 BULL Seybol d 2021-11-12 2021-11-12 Outpatient KARMEN JHA [id number] Karmen 00:00:00 00:00:00 BULL Seybol d 2021-11-11 2021-11-11 Office Pablo Jha 1.2.840.114 [id number] [place] 13:30:00 14:00:00 Visit Bull Malachi 350.1.13.13 Se ybold 1.2.7.2.686 [id number] 2021-10-23 2021-10-23 Outpatient R ANABEL MILLIGAN [facility] [id number] Univers 15:30:00 17:29:14 ity of [facility] 2021-10-23 2021-10-23 Office Anabel Milligan [facility] 1.2.840.114 [id number] Univers 15:30:00 17:29:14 Visit MALACHI 350.1.13.10 it [place] [id number] [facility] [address] 2021-10-23 2021-10-23 Outpatient R ANABEL MILLIGAN [facility] [id number] Univers 15:30:00 17:29:14 ity [facility] 2021-10-23 2021-10-23 Orders Doctor JAKE 1.2.840.114 [id number] Univers 00:00:00 00:00:00 Only Unassigned, YOSELIN 350.1.13.10 [facility] 4.2.7.2.686 [place] [id number] [place] [address] [address] 2021-10-16 2021-10-16 Pre Visit NATASHA Javed 1.2.338.150 [id number] Univers 00:00:00 00:00:00 Outreach Alexus [place] 350.1.13.10 [place] [id number] [facility] [address] [place] 2021-07-21 2021-07-21 Outpatient R ANABEL MILLIGAN [facility] [id number] Univers 10:00:00 10:00:00 ity [facility] 2021-07-16 2021-07-16 Pre Visit NATASHA Javed 1.2.753.620 [id number] Univers 00:00:00 00:00:00 Outreach Alexus [place] 350.1.13.10 [place] [id number] [place] [id number] [place] 2020-07-17 2020-07-17 Outpatient R ANABEL MILLIGAN [facility] [id number] Univers 14:30:00 14:30:00 ity of [facility] 2020-07-17 2020-07-17 Orders Doctor JAKE 1.2.840.114 [id number] Univers 00:00:00 00:00:00 Only Unassigned, YOSELIN 350.1.13.10 ity of [facility] 4.2.7.2.686 [place] [id number] [address] Results Test Description Test Time Test Comments Results Result Comments Source Blood Culture - Peripheral Vein 2022-10-07 20:01:45 Test Item Value Reference Range Interpretation Comme nts Blood Culture-Aerobic (test No organisms isolated No growth Previous preliminary code = 92716-3) verified res ult was Culture In Prog ress on 10/02/2022 at 18 02 CDTPrevious pre liminary verified result was No growth at 24 ho urs on 10/03/2022 at 15 01 CDTPrevious pre liminary verified result was No growth at 48 ho urs on 10/04/2022 at 15 01 CDTPrevious pre liminary verified result was No growth at 72 ho urs on 10/05/2022 at 15 01 CDT Blood Culture-Anaerobic No organisms isolated No growth Previous preliminary (test code = 28946-4) verifi ed result was Culture In Prog ress on 10/02/2022 at 18 02 CDTPrevious pre liminary verified result was No growth at 24 ho urs on 10/03/2022 at 15 01 CDTPrevious pre liminary verified result was No growth at 48 ho urs on 10/04/2022 at 15 01 CDTPrevious pre liminary verified result was No growth at 72 ho urs on 10/05/2022 at 15 01 CDT Lab Interpretation (test Normal code = 59825-3) [facility] 20:01:45 Test Item Value Reference Range Interpretation Comments Blood Culture-Aerobic No organisms No growth Previo us (test code = 45361-5) isolated prelim inary verified result was Culture In Progress on 10/02/2022 at 18 02 CDTPrevious preliminary verified result was No growth a t 24 hours on 10/03/2022 at 15 01 CDTPrevious preliminary verified result was No growth a t 48 hours on 10/04/2022 at 15 01 CDTPrevious preliminary verified result was No growth a t 72 hours on 10/05/2022 at 15 01 CDT Blood No organisms No growth Previous Culture-Anaerobic isolated preliminar y (test code = 24528-1) verifi ed result was Culture In Progress on 10/02/2022 at 18 02 CDTPrevious preliminary verified result was No growth a t 24 hours on 10/03/2022 at 15 CDTPrevious preliminary verified result was No growth a t 48 hours on 10/04/2022 at 15 CDTPrevious preliminary verified result was No growth a t 72 hours on 10/05/2022 at 15 01 CDT Lab Interpretation Normal (test code = 11477-9) [facility] Culture - Peripheral [id number] 20:01:45 Test Item Value Reference Range Interpretation Comments Blood Culture-Aerobic No organisms No growth Previo us (test code = 58518-6) isolated prelim inary verified result was Culture In Progress on 10/02/2022 at 18 02 CDTPrevious preliminary verified result was No growth a t 24 hours on 10/03/2022 at 15 CDTPrevious preliminary verified result was No growth a t 48 hours on 10/04/2022 at 15 CDTPrevious preliminary verified result was No growth a t 72 hours on 10/05/2022 at 15 01 CDT Blood No organisms No growth Previous Culture-Anaerobic isolated preliminar y (test code = 49513-4) verifi ed result was Culture In Progress on 10/02/2022 at 18 02 CDTPrevious preliminary verified result was No growth a t 24 hours on 10/03/2022 at 15 CDTPrevious preliminary verified result was No growth a t 48 hours on 10/04/2022 at 15 01 CDTPrevious preliminary verified result was No growth a t 72 hours on 10/05/2022 at 15 01 CDT Lab Interpretation Normal (test code = 59926-8) [facility] Culture - Peripheral Vein # 20:01:45 Test Item Value Reference Range Interpretation Comments Blood Culture-Aerobic No organisms No growth Previo us (test code = 11968-0) isolated prelim inary verified result was Culture In Progress on 10/02/2022 at 18 02 CDTPrevious preliminary verified result was No growth a t 24 hours on 10/03/2022 at 15 01 CDTPrevious preliminary verified result was No growth a t 48 hours on 10/04/2022 at 15 01 CDTPrevious preliminary verified result was No growth a t 72 hours on 10/05/2022 at 15 01 CDT Blood No organisms No growth Previous Culture-Anaerobic isolated preliminar y (test code = 57899-0) verifi ed result was Culture In Progress on 10/02/2022 at 18 02 CDTPrevious preliminary verified result was No growth a t 24 hours on 10/03/2022 at 15 01 CDTPrevious preliminary verified result was No growth a t 48 hours on 10/04/2022 at 15 01 CDTPrevious preliminary verified result was No growth a t 72 hours on 10/05/2022 at 15 01 CDT Lab Interpretation Normal (test code = 41999-6) [facility] [id number] 18:02:43 Test Item Value Reference Range Interpretation Comments LACTIC ACID (test code = 1.64 mmol/L 0.50-2.20 0841345165) Lab Interpretation (test code = Normal 56978-2) [facility] [id number] 18:02:43 Test Item Value Reference Range Interpretation Comments LACTIC ACID (test code = 1.64 mmol/L 0.50-2.20 7247210124) Lab Interpretation (test code = Normal 64465-3) [facility] (for use with Heparin Infusion)2022-10-05 11:13:06 Test Item Value Reference Range Interpretation Comments APTT Patient (test code 46 See_Comment H [Au tomated message] = 3173-2) The system [employer] generated this result transmitted ref erence range: 26 - 36 Seconds. The reference range was not used to int erpret this result as normal/abnormal . Lab Interpretation (test Abnormal code = 77167-4) [facility] (for use with Heparin Infusion)2022-10-05 11:13:06 Test Item Value Reference Range Interpretation Comments APTT Patient (test code 46 See_Comment H [Au tomated message] = 3173-2) The system [employer] generated this result transmitted ref erence range: 26 - 36 Seconds. The reference range was not used to int erpret this result as normal/abnormal . Lab Interpretation (test Abnormal code = 94480-5) [facility] METABOLIC PANEL (NA, K, CL, CO2, GLUCOSE, BUN, CREATININE, CA)2022-10-05 11:12:56 Test Item Value Reference Range Interpretation Comments NA (test code = 138 mmol/L 135-145 [id number]) K (test code = 4.2 mmol/L 3.5-5.0 Slight [id number]) hemolysis CL (test code = 103 mmol/L 98-108 [id number]) CO2 TOTAL (test code 34 mmol/L 23-31 H = [id number]) AGAP (test code = 1 2-16 L [id number]) BUN (test code = 23 mg/dL 7-23 Slight 8113260313) hemolysis GLUCOSE (test code = 87 mg/dL 70-110 7985291451) CREATININE (test code 1.03 mg/dL 0.50-1.04 = 8899146197) CALCIUM (test code = 6.5 mg/dL 8.6-10.6 L 2371621094) eGFR (test code = 53.8 mL/min/1.73m2 3388976250) KRISTIN (test code = KRISTIN) Association of Glomerular Filtration Rate (GFR) and Staging of Kidney Disease* + -----+ --------+ +| GFR (mL/min/1.73 m2) ?| With Kidney Damage ?| ?Without Kidney Damage+ +------- +---- --+| ?>90 ?| ?Stage one ?| ? Normal ?+ ------+ ---------+--------- +| ?60-89 ?| ?Stage two ?| ? Decreased GFR ? + -----+ --------+ +| ?30-59 ?| ?Stage three ?| ? Stage three ? + -----+ --------+ +| ?15-29 ?| ?Stage four ? | ? Stage four ?+ ------+ ---------+--------- +| ?<15 (or dialysis) ? ?| ?Stage five ? | ? Stage five ?+ ------+ ---------+--------- + *Each stage assumes the associated GFR level has been in effect for at least three months. ?Stages 1 to 5, with or without kidney disease, indicate chronic kidney disease. Notes: Determination of stages one and two (with eGFR >59mL/min/1.73 m2) requires estimation of kidney damage for at least three months as defined by structural or functional abnormalities of the kidney, manifested by either:Pathological abnormalities or Markers of kidney damage (including abnormalities in the composition of the blood or urine or abnormalities in imaging tests). Lab Interpretation Abnormal (test code = 56961-9) [facility] METABOLIC PANEL (NA, K, CL, CO2, GLUCOSE, BUN, CREATININE, CA)2022-10-05 11:12:56 Test Item Value Reference Range Interpretation Comments NA (test code = 138 mmol/L 135-145 2953570300) K (test code = 4.2 mmol/L 3.5-5.0 Slight 6773314361) hemolysis CL (test code = 103 mmol/L 98-108 5366885229) CO2 TOTAL (test code 34 mmol/L 23-31 H = 9360770835) AGAP (test code = 1 2-16 L 5942779975) BUN (test code = 23 mg/dL 7-23 Slight 6406056526) hemolysis GLUCOSE (test code = 87 mg/dL 70-110 9100968559) CREATININE (test code 1.03 mg/dL 0.50-1.04 = 3565033731) CALCIUM (test code = 6.5 mg/dL 8.6-10.6 L 3552659888) eGFR (test code = 53.8 mL/min/1.73m2 4999382420) KRISTIN (test code = KRISTIN) Association of Glomerular Filtration Rate (GFR) and Staging of Kidney Disease* + -----+ --------+ +| GFR (mL/min/1.73 m2) ?| With Kidney Damage ?| ?Without Kidney Damage+ +------- +---- --+| ?>90 ?| ?Stage one ?| ? Normal ?+ ------+ ---------+--------- +| ?60-89 ?| ?Stage two ?| ? Decreased GFR ? + -----+ --------+ +| ?30-59 ?| ?Stage three ?| ? Stage three ? + -----+ --------+ +| ?15-29 ?| ?Stage four ? | ? Stage four ?+ ------+ ---------+--------- +| ?<15 (or dialysis) ? ?| ?Stage five ? | ? Stage five ?+ ------+ ---------+--------- + *Each stage assumes the associated GFR level has been in effect for at least three months. ?Stages 1 to 5, with or without kidney disease, indicate chronic kidney disease. Notes: Determination of stages one and two (with eGFR >59mL/min/1.73 m2) requires estimation of kidney damage for at least three months as defined by structural or functional abnormalities of the kidney, manifested by either:Pathological abnormalities or Markers of kidney damage (including abnormalities in the composition of the blood or urine or abnormalities in imaging tests). Lab Interpretation Abnormal (test code = 14717-5) [facility]2023-03-27 11:05:59 Test Item Value Reference Range Interpretation Comments MAGNESIUM (test code = 6294247964) 1.8 mg/dL 1.7-2.4 Lab Interpretation (test code = Normal 68051-6) [facility]2023-03-27 11:05:59 Test Item Value Reference Range Interpretation Comments MAGNESIUM (test code = 4810462491) 1.8 mg/dL 1.7-2.4 Lab Interpretation (test code = Normal 57343-4) [facility] (for use with Heparin Infusion)2022-10-05 03:54:26 Test Item Value Reference Range Interpretation Comments APTT Patient (test code 131 See_Comment [Au tomated message] = 3173-2) The system [employer] generated this result transmitted ref erence range: 26 - 36 Seconds. The reference range was not used to int erpret this result as normal/abnormal . Lab Interpretation (test Abnormal code = 44456-9) [facility] (for use with Heparin Infusion)2022-10-05 03:54:26 Test Item Value Reference Range Interpretation Comments APTT Patient (test code 131 See_Comment HH [Au tomated message] = 3173-2) The system [employer] generated this result transmitted ref erence range: 26 - 36 Seconds. The reference range was not used to int erpret this result as normal/abnormal . Lab Interpretation (test Abnormal code = 72107-2) [facility] METABOLIC PANEL (NA, K, CL, CO2, GLUCOSE, BUN, CREATININE, CA)2022-10-04 17:56:16 Test Item Value Reference Range Interpretation Comments NA (test code = 136 mmol/L 135-145 0541963456) K (test code = 3.1 mmol/L 3.5-5.0 L 8650487380) CL (test code = 102 mmol/L 98-108 4624268112) CO2 TOTAL (test code = 30 mmol/L 23-31 9787195407) AGAP (test code = 4 2-16 4795121986) BUN (test code = 21 mg/dL 7-23 5589492937) GLUCOSE (test code = 141 mg/dL 70-110 H 9366479400) CREATININE (test code = 0.84 mg/dL 0.50-1.04 8492228617) CALCIUM (test code = 6.5 mg/dL 8.6-10.6 L 5536256669) eGFR (test code = 68.0 mL/min/1.73m2 5452063029) KRISTIN (test code = KRISTIN) Association of Glomerular Filtration Rate (GFR) and Staging of Kidney Disease* + --+ --+ ------+| GFR (mL/min/1.73 m2) ?| With Kidney Damage ?| ?Without Kidney Damage+ --------+ --------+ +| ?>90 ?| ?Stage one ?| ? Normal ?+ ---+ ---+ -------+| ?60-89 ?| ?Stage two ?| ? Decreased GFR ? + --+ --+ ------+| ?30-59 ?| ?Stage three ?| ? Stage three ? + --+ --+ ------+| ?15-29 ?| ?Stage four ? | ? Stage four ?+ ---+ ---+ -------+| ?<15 (or dialysis) ? ?| ?Stage five ? | ? Stage five ?+ ---+ ---+ -------+ *Each stage assumes the associated GFR level has been in effect for at least three months. ?Stages 1 to 5, with or without kidney disease, indicate chronic kidney disease. Notes: Determination of stages one and two (with eGFR >59mL/min/1.73 m2) requires estimation of kidney damage for at least three months as defined by structural or functional abnormalities of the kidney, manifested by either:Pathological abnormalities or Markers of kidney damage (including abnormalities in the composition of the blood or urine or abnormalities in imaging tests). Lab Interpretation Abnormal (test code = 37327-7) [facility] Test Item Value Reference Range Interpretation Comments MAGNESIUM (test code = 0466878205) 1.6 mg/dL 1.7-2.4 L Lab Interpretation (test code = Abnormal 77450-0) [facility] METABOLIC PANEL (NA, K, CL, CO2, GLUCOSE, BUN, CREATININE, CA)2022-10-04 17:56:16 Test Item Value Reference Range Interpretation Comments NA (test code = 136 mmol/L 135-145 3426165290) K (test code = 3.1 mmol/L 3.5-5.0 L 4790018204) CL (test code = 102 mmol/L 98-108 9431988161) CO2 TOTAL (test code = 30 mmol/L 23-31 0012459141) AGAP (test code = 4 2-16 9796916225) BUN (test code = 21 mg/dL 7-23 6376427279) GLUCOSE (test code = 141 mg/dL 70-110 H 4111159293) CREATININE (test code = 0.84 mg/dL 0.50-1.04 0827333518) CALCIUM (test code = 6.5 mg/dL 8.6-10.6 L 3892228027) eGFR (test code = 68.0 mL/min/1.73m2 9321528745) KRISTIN (test code = KRISTIN) Association of Glomerular Filtration Rate (GFR) and Staging of Kidney Disease* + --+ --+ ------+| GFR (mL/min/1.73 m2) ?| With Kidney Damage ?| ?Without Kidney Damage+ --------+ --------+ +| ?>90 ?| ?Stage one ?| ? Normal ?+ ---+ ---+ -------+| ?60-89 ?| ?Stage two ?| ? Decreased GFR ? + --+ --+ ------+| ?30-59 ?| ?Stage three ?| ? Stage three ? + --+ --+ ------+| ?15-29 ?| ?Stage four ? | ? Stage four ?+ ---+ ---+ -------+| ?<15 (or dialysis) ? ?| ?Stage five ? | ? Stage five ?+ ---+ ---+ -------+ *Each stage assumes the associated GFR level has been in effect for at least three months. ?Stages 1 to 5, with or without kidney disease, indicate chronic kidney disease. Notes: Determination of stages one and two (with eGFR >59mL/min/1.73 m2) requires estimation of kidney damage for at least three months as defined by structural or functional abnormalities of the kidney, manifested by either:Pathological abnormalities or Markers of kidney damage (including abnormalities in the composition of the blood or urine or abnormalities in imaging tests). Lab Interpretation Abnormal (test code = 90999-9) [facility] Test Item Value Reference Range Interpretation Comments MAGNESIUM (test code = 9558104386) 1.6 mg/dL 1.7-2.4 L Lab Interpretation (test code = Abnormal 39121-2) [facility] (for use with Heparin Infusion)2022-10-04 17:48:18 Test Item Value Reference Range Interpretation Comments APTT Patient (test code 103 See_Comment [Au tomated message] = 9543-2) The system [employer] generated this result transmitted ref erence range: 26 - 36 Seconds. The reference range was not used to int erpret this result as normal/abnormal . Lab Interpretation (test Abnormal code = 85186-0) [facility] (for use with Heparin Infusion)2022-10-04 17:48:18 Test Item Value Reference Range Interpretation Comments APTT Patient (test code 103 See_Comment [Au tomated message] = 3173-2) The system [employer] generated this result transmitted ref erence range: 26 - 36 Seconds. The reference range was not used to int erpret this result as normal/abnormal . Lab Interpretation (test Abnormal code = 81050-9) [id number] 13:29:27 Test Item Value Reference Range Interpretation Comments Syphilis IgG/IgM (test Non-reactive Non-reactive code = 19355-4) KRISTIN (test code = KRISTIN) Non-reactive - No serologic evidence of T. pallidum infection. Cannot exclude incubating or early syphilis. Submit a second specimen in 2-4 weeks if syphilis is clinically suspected. Equivocal - Further testing to follow. Reactive - Further testing to follow. Lab Interpretation (test Normal code = 48143-5) [id number] 13:29:27 Test Item Value Reference Range Interpretation Comments Syphilis IgG/IgM (test Non-reactive Non-reactive code = 06468-2) KRISTIN (test code = KRISTIN) Non-reactive - No serologic evidence of T. pallidum infection. Cannot exclude incubating or early syphilis. Submit a second specimen in 2-4 weeks if syphilis is clinically suspected. Equivocal - Further testing to follow. Reactive - Further testing to follow. Lab Interpretation (test Normal code = 76044-7) [facility] Draw within 30 minutes prior to 3RD dose.2022-10-04 11:48:43 Test Item Value Reference Range Interpretation Comments VANCO TROUGH (test code 19.7 ug/mL 10.0-20.0 = 7503832983) KRISTIN (test code = KRISTIN) Toxic Range: ?>20 ug/mL 15-20 ug/mL is recommended for severe infection or when Vancomycin MELONIE is greater than or equal to 2. Lab Interpretation (test Normal code = 08869-3) [facility] - Draw within 30 minutes prior to 3RD dose.2022-10-04 11:48:43 Test Item Value Reference Range Interpretation Comments VANCO TROUGH (test code 19.7 ug/mL 10.0-20.0 = 2147385698) KRISTIN (test code = KRISTIN) Toxic Range: ?>20 ug/mL 15-20 ug/mL is recommended for severe infection or when Vancomycin MELONIE is greater than or equal to 2. Lab Interpretation (test Normal code = 52891-1) [facility] (NA, K, CL, CO2, GLUCOSE, BUN, CREATININE, CA)2022-10-04 11:22:00 Test Item Value Reference Range Interpretation Comments NA (test code = 137 mmol/L 135-145 3376890986) K (test code = 5.7 mmol/L 3.5-5.0 H 2012670757) CL (test code = 96 mmol/L 98-108 L 5566814071) CO2 TOTAL (test code = 37 mmol/L 23-31 H 4522654155) AGAP (test code = 4 2-16 2718063546) BUN (test code = 23 mg/dL 7-23 7918939967) GLUCOSE (test code = 85 mg/dL 70-110 9970012033) CREATININE (test code = 0.91 mg/dL 0.50-1.04 1469223541) CALCIUM (test code = 7.7 mg/dL 8.6-10.6 L 0783454994) eGFR (test code = 62.0 mL/min/1.73m2 9699195441) KRISTIN (test code = KRISTIN) Association of Glomerular Filtration Rate (GFR) and Staging of Kidney Disease* + --+ --+ ------+| GFR (mL/min/1.73 m2) ?| With Kidney Damage ?| ?Without Kidney Damage+ --------+ --------+ +| ?>90 ?| ?Stage one ?| ? Normal ?+ ---+ ---+ -------+| ?60-89 ?| ?Stage two ?| ? Decreased GFR ? + --+ --+ ------+| ?30-59 ?| ?Stage three ?| ? Stage three ? + --+ --+ ------+| ?15-29 ?| ?Stage four ? | ? Stage four ?+ ---+ ---+ -------+| ?<15 (or dialysis) ? ?| ?Stage five ? | ? Stage five ?+ ---+ ---+ -------+ *Each stage assumes the associated GFR level has been in effect for at least three months. ?Stages 1 to 5, with or without kidney disease, indicate chronic kidney disease. Notes: Determination of stages one and two (with eGFR >59mL/min/1.73 m2) requires estimation of kidney damage for at least three months as defined by structural or functional abnormalities of the kidney, manifested by either:Pathological abnormalities or Markers of kidney damage (including abnormalities in the composition of the blood or urine or abnormalities in imaging tests). Lab Interpretation Abnormal (test code = 20879-6) [facility] METABOLIC PANEL (NA, K, CL, CO2, GLUCOSE, BUN, CREATININE, CA)2022-10-04 11:22:00 Test Item Value Reference Range Interpretation Comments NA (test code = 137 mmol/L 135-145 3419972828) K (test code = 5.7 mmol/L 3.5-5.0 H 4221105253) CL (test code = 96 mmol/L 98-108 L 4243816740) CO2 TOTAL (test code = 37 mmol/L 23-31 H 7840975454) AGAP (test code = 4 2-16 2331336103) BUN (test code = 23 mg/dL 7-23 6755906976) GLUCOSE (test code = 85 mg/dL 70-110 9901314415) CREATININE (test code = 0.91 mg/dL 0.50-1.04 8288180177) CALCIUM (test code = 7.7 mg/dL 8.6-10.6 L 7872564788) eGFR (test code = 62.0 mL/min/1.73m2 8149239598) KRISTIN (test code = KRISTIN) Association of Glomerular Filtration Rate (GFR) and Staging of Kidney Disease* + --+ --+ ------+| GFR (mL/min/1.73 m2) ?| With Kidney Damage ?| ?Without Kidney Damage+ --------+ --------+ +| ?>90 ?| ?Stage one ?| ? Normal ?+ ---+ ---+ -------+| ?60-89 ?| ?Stage two ?| ? Decreased GFR ? + --+ --+ ------+| ?30-59 ?| ?Stage three ?| ? Stage three ? + --+ --+ ------+| ?15-29 ?| ?Stage four ? | ? Stage four ?+ ---+ ---+ -------+| ?<15 (or dialysis) ? ?| ?Stage five ? | ? Stage five ?+ ---+ ---+ -------+ *Each stage assumes the associated GFR level has been in effect for at least three months. ?Stages 1 to 5, with or without kidney disease, indicate chronic kidney disease. Notes: Determination of stages one and two (with eGFR >59mL/min/1.73 m2) requires estimation of kidney damage for at least three months as defined by structural or functional abnormalities of the kidney, manifested by either:Pathological abnormalities or Markers of kidney damage (including abnormalities in the composition of the blood or urine or abnormalities in imaging tests). Lab Interpretation Abnormal (test code = 95310-3) [facility] Test Item Value Reference Range Interpretation Comments MAGNESIUM (test code = 2256122013) 2.0 mg/dL 1.7-2.4 Lab Interpretation (test code = Normal 11828-6) [facility]2023-03-26 11:14:40 Test Item Value Reference Range Interpretation Comments MAGNESIUM (test code = 9383657810) 2.0 mg/dL 1.7-2.4 Lab Interpretation (test code = Normal 97346-2) [facility] METABOLIC PANEL (NA, K, CL, CO2, GLUCOSE, BUN, CREATININE, CA)2022-10-04 03:34:55 Test Item Value Reference Range Interpretation Comments NA (test code = 138 mmol/L 135-145 3521091960) K (test code = 3.7 mmol/L 3.5-5.0 Slight 1855768979) hemolysis CL (test code = 97 mmol/L 98-108 L 8135968374) CO2 TOTAL (test code 37 mmol/L 23-31 H = 9585490276) AGAP (test code = 4 2-16 7752806169) BUN (test code = 22 mg/dL 7-23 Slight 9988786142) hemolysis GLUCOSE (test code = 115 mg/dL 70-110 H 9119091914) CREATININE (test code 0.90 mg/dL 0.50-1.04 = 4665591451) CALCIUM (test code = 7.6 mg/dL 8.6-10.6 L 2288914596) eGFR (test code = 62.8 mL/min/1.73m2 1243191417) KRISTIN (test code = KRISTIN) Association of Glomerular Filtration Rate (GFR) and Staging of Kidney Disease* + -----+ --------+ +| GFR (mL/min/1.73 m2) ?| With Kidney Damage ?| ?Without Kidney Damage+ +------- +---- --+| ?>90 ?| ?Stage one ?| ? Normal ?+ ------+ ---------+--------- +| ?60-89 ?| ?Stage two ?| ? Decreased GFR ? + -----+ --------+ +| ?30-59 ?| ?Stage three ?| ? Stage three ? + -----+ --------+ +| ?15-29 ?| ?Stage four ? | ? Stage four ?+ ------+ ---------+--------- +| ?<15 (or dialysis) ? ?| ?Stage five ? | ? Stage five ?+ ------+ ---------+--------- + *Each stage assumes the associated GFR level has been in effect for at least three months. ?Stages 1 to 5, with or without kidney disease, indicate chronic kidney disease. Notes: Determination of stages one and two (with eGFR >59mL/min/1.73 m2) requires estimation of kidney damage for at least three months as defined by structural or functional abnormalities of the kidney, manifested by either:Pathological abnormalities or Markers of kidney damage (including abnormalities in the composition of the blood or urine or abnormalities in imaging tests). Lab Interpretation Abnormal (test code = 78198-2) [facility]34:55 Test Item Value Reference Range Interpretation Comments MAGNESIUM (test code = 2201817697) 1.3 mg/dL 1.7-2.4 L Lab Interpretation (test code = Abnormal 64661-2) [facility] (NA, K, CL, CO2, GLUCOSE, BUN, CREATININE, CA)2022-10-04 03:34:55 Test Item Value Reference Range Interpretation Comments NA (test code = 138 mmol/L 135-145 6595911861) K (test code = 3.7 mmol/L 3.5-5.0 Slight 4364031935) hemolysis CL (test code = 97 mmol/L 98-108 L 8823676258) CO2 TOTAL (test code 37 mmol/L 23-31 H = 0077130777) AGAP (test code = 4 2-16 4227468523) BUN (test code = 22 mg/dL 7-23 Slight 7427389067) hemolysis GLUCOSE (test code = 115 mg/dL 70-110 H 7540323636) CREATININE (test code 0.90 mg/dL 0.50-1.04 = 3299751905) CALCIUM (test code = 7.6 mg/dL 8.6-10.6 L 8435532211) eGFR (test code = 62.8 mL/min/1.73m2 9738103319) KRISTIN (test code = KRISTIN) Association of Glomerular Filtration Rate (GFR) and Staging of Kidney Disease* + -----+ --------+ +| GFR (mL/min/1.73 m2) ?| With Kidney Damage ?| ?Without Kidney Damage+ +------- +---- --+| ?>90 ?| ?Stage one ?| ? Normal ?+ ------+ ---------+--------- +| ?60-89 ?| ?Stage two ?| ? Decreased GFR ? + -----+ --------+ +| ?30-59 ?| ?Stage three ?| ? Stage three ? + -----+ --------+ +| ?15-29 ?| ?Stage four ? | ? Stage four ?+ ------+ ---------+--------- +| ?<15 (or dialysis) ? ?| ?Stage five ? | ? Stage five ?+ ------+ ---------+--------- + *Each stage assumes the associated GFR level has been in effect for at least three months. ?Stages 1 to 5, with or without kidney disease, indicate chronic kidney disease. Notes: Determination of stages one and two (with eGFR >59mL/min/1.73 m2) requires estimation of kidney damage for at least three months as defined by structural or functional abnormalities of the kidney, manifested by either:Pathological abnormalities or Markers of kidney damage (including abnormalities in the composition of the blood or urine or abnormalities in imaging tests). Lab Interpretation Abnormal (test code = 55477-7) [facility]34:55 Test Item Value Reference Range Interpretation Comments MAGNESIUM (test code = 7029507628) 1.3 mg/dL 1.7-2.4 L Lab Interpretation (test code = Abnormal 19613-0) [facility]2022-10-04 02:25:51 Test Item Value Reference Range Interpretation Comments APTT Patient (test code 57 See_Comment H [Au tomated message] = 4643-2) The system [employer] generated this result transmitted ref erence range: 26 - 36 Seconds. The reference range was not used to int erpret this result as normal/abnormal . Lab Interpretation (test Abnormal code = 70290-0) [facility] (for use with Heparin Infusion)2022-10-04 02:25:51 Test Item Value Reference Range Interpretation Comments APTT Patient (test code 57 See_Comment H [Au tomated message] = 3173-2) The system [employer] generated this result transmitted ref erence range: 26 - 36 Seconds. The reference range was not used to int erpret this result as normal/abnormal . Lab Interpretation (test Abnormal code = 80605-4) [facility] (for use with Heparin Infusion)2022-10-03 19:08:36 Test Item Value Reference Range Interpretation Comments APTT Patient (test code 52 See_Comment H [Au tomated message] = 3173-2) The system [employer] generated this result transmitted ref erence range: 26 - 36 Seconds. The reference range was not used to int erpret this result as normal/abnormal . Lab Interpretation (test Abnormal code = 24700-2) [facility] (for use with Heparin Infusion)2022-10-03 19:08:36 Test Item Value Reference Range Interpretation Comments APTT Patient (test code 52 See_Comment H [Au tomated message] = 3173-2) The system [employer] generated this result transmitted ref erence range: 26 - 36 Seconds. The reference range was not used to int erpret this result as normal/abnormal . Lab Interpretation (test Abnormal code = 91374-1) [facility] 1/2 AG-AB WITH [id number] 15:30:06 Test Item Value Reference Range Interpretation Comments HIV 0.17 Negative Semi-quantitative (test code = 61089-7) KRISTIN (test code = Non-reactive for HIV-1 KRISTIN) antigen and HIV-1/HIV-2 antibodies. ?No laboratory evidence of HIV infection. ?Repeat in 2-4 weeks if acute HIV infection is suspected. [facility] 1/2 AG-AB WITH [id number] 15:30:06 Test Item Value Reference Range Interpretation Comments HIV 0.17 Negative Semi-quantitative (test code = 85554-1) KRISTIN (test code = Non-reactive for HIV-1 KRISTIN) antigen and HIV-1/HIV-2 antibodies. ?No laboratory evidence of HIV infection. ?Repeat in 2-4 weeks if acute HIV infection is suspected. [facility] + Lactic [id number] 10:45:17 Test Item Value Reference Range Interpretation Comments PH (test code = 2) 7.36 7.35-7.45 PCO2 (test code = 66 See_Comment H [Automat ed [id number]) message] The sy stem which generated this result transmitted reference range : 35 - 45 mmHg. The reference range was not used to interpret this result as normal/abnormal . PO2 (test code = 78 See_Comment L [Automated [id number]) message] The sy stem which generated this result transmitted reference range : 80 - 100 mmHg. The reference range was not used to interpret this result as normal/abnormal . HCO3 (test code = 37 See_Comment H [Automate d [id number]) message] The sy stem which generated this result transmitted reference range : 22 - 26 mEq/L. The reference range was not used to interpret this result as normal/abnormal . BE (test code = 8.6 See_Comment H [Automated [id number]) message] The sy stem which generated this result transmitted reference range : -3.0 - 3.0 mEq/ L. The reference r venkat was not used to interpret this result as normal/abnormal . THB (test code = 12.6 g/dL 12.0-16.0 6266640891) %O2HB (test code = 94.8 % 94.0-99.0 9842982842) %COHB ART (test code = 1.5 % 0.0-1.5 8509602934) %METHB ART (test code = 0.1 % 0.4-1.5 L 3269659780) VOL%O2 ART (test code = 16.9 % 15.0-23.0 4448360358) NA (test code = 137 mmol/L 135-145 8897692718) K+ (test code = 3.7 mmol/L 3.5-5.0 6144858597) AC CA IONZ (test code = 4.50 mg/dL 4.50-5.30 9384095292) GLUCOSE (test code = 90 mg/dL 70-110 8068519507) LACTIC ACID (test code 1.73 mmol/L 0.50-2.20 = 2507630673) Lab Interpretation Abnormal (test code = 54974-1) [facility] + Lactic [id number] 10:45:17 Test Item Value Reference Range Interpretation Comments PH (test code = 2) 7.36 7.35-7.45 PCO2 (test code = 66 See_Comment H [Automate d [id number]) message] The sy stem which generated this result transmitted reference range : 35 - 45 mmHg. The reference range was not used to interpret this result as normal/abnormal . PO2 (test code = 78 See_Comment L [Automated [id number]) message] The sy stem which generated this result transmitted reference range : 80 - 100 mmHg. The reference range was not used to interpret this result as normal/abnormal . HCO3 (test code = 37 See_Comment H [Automate d [id number]) message] The sy stem which generated this result transmitted reference range : 22 - 26 mEq/L. The reference range was not used to interpret this result as normal/abnormal . BE (test code = 8.6 See_Comment H [Automated [id number]) message] The sy stem which generated this result transmitted reference range : -3.0 - 3.0 mEq/ L. The reference r venkat was not used to interpret this result as normal/abnormal . THB (test code = 12.6 g/dL 12.0-16.0 1737846474) %O2HB (test code = 94.8 % 94.0-99.0 1034301521) %COHB ART (test code = 1.5 % 0.0-1.5 1355087963) %METHB ART (test code = 0.1 % 0.4-1.5 L 9143653214) VOL%O2 ART (test code = 16.9 % 15.0-23.0 3490696389) NA (test code = 137 mmol/L 135-145 1929893773) K+ (test code = 3.7 mmol/L 3.5-5.0 0552000041) AC CA IONZ (test code = 4.50 mg/dL 4.50-5.30 9681731494) GLUCOSE (test code = 90 mg/dL 70-110 6853530688) LACTIC ACID (test code 1.73 mmol/L 0.50-2.20 = 2791579272) Lab Interpretation Abnormal (test code = 11697-4) [facility] 10:18:28 Test Item Value Reference Range Interpretation Comments HGB A1C (test code = 6.2 % 4.0-5.7 H 4548-4) KRISTIN (test code = KRISTIN) Reference RangesNormal: <5.7%Prediabetes: 5.7 - 6.4%Diabetes: > 6.5% Lab Interpretation (test Abnormal code = 44875-7) [facility]C)2022-10-03 10:18:28 Test Item Value Reference Range Interpretation Comments HGB A1C (test code = 6.2 % 4.0-5.7 H 4548-4) KRISTIN (test code = KRISTIN) Reference RangesNormal: <5.7%Prediabetes: 5.7 - 6.4%Diabetes: > 6.5% Lab Interpretation (test Abnormal code = 51240-9) [facility] (NA, K, CL, CO2, GLUCOSE, BUN, CREATININE, CA)2022-10-03 09:59:24 Test Item Value Reference Range Interpretation Comments NA (test code = 140 mmol/L 135-145 0547954202) K (test code = 3.2 mmol/L 3.5-5.0 L 3749194065) CL (test code = 102 mmol/L 98-108 2919544904) CO2 TOTAL (test code = 30 mmol/L 23-31 7909969596) AGAP (test code = 8 2-16 0135034719) BUN (test code = 21 mg/dL 7-23 4142402940) GLUCOSE (test code = 78 mg/dL 70-110 2730560057) CREATININE (test code = 0.86 mg/dL 0.50-1.04 4437306752) CALCIUM (test code = 7.5 mg/dL 8.6-10.6 L 6048358724) eGFR (test code = 66.2 mL/min/1.73m2 1672424222) KRISTIN (test code = KRISTIN) Association of Glomerular Filtration Rate (GFR) and Staging of Kidney Disease* + --+ --+ ------+| GFR (mL/min/1.73 m2) ?| With Kidney Damage ?| ?Without Kidney Damage+ --------+ --------+ +| ?>90 ?| ?Stage one ?| ? Normal ?+ ---+ ---+ -------+| ?60-89 ?| ?Stage two ?| ? Decreased GFR ? + --+ --+ ------+| ?30-59 ?| ?Stage three ?| ? Stage three ? + --+ --+ ------+| ?15-29 ?| ?Stage four ? | ? Stage four ?+ ---+ ---+ -------+| ?<15 (or dialysis) ? ?| ?Stage five ? | ? Stage five ?+ ---+ ---+ -------+ *Each stage assumes the associated GFR level has been in effect for at least three months. ?Stages 1 to 5, with or without kidney disease, indicate chronic kidney disease. Notes: Determination of stages one and two (with eGFR >59mL/min/1.73 m2) requires estimation of kidney damage for at least three months as defined by structural or functional abnormalities of the kidney, manifested by either:Pathological abnormalities or Markers of kidney damage (including abnormalities in the composition of the blood or urine or abnormalities in imaging tests). Lab Interpretation Abnormal (test code = 83006-2) [facility] Yydze6577-77-28 09:59:24 Test Item Value Reference Range Interpretation Comments MAGNESIUM (test code = 1358039660) 1.5 mg/dL 1.7-2.4 L Lab Interpretation (test code = Abnormal 50874-0) [facility] (NA, K, CL, CO2, GLUCOSE, BUN, CREATININE, CA)2022-10-03 09:59:24 Test Item Value Reference Range Interpretation Comments NA (test code = 140 mmol/L 135-145 1285809524) K (test code = 3.2 mmol/L 3.5-5.0 L 8917432940) CL (test code = 102 mmol/L 98-108 7337776774) CO2 TOTAL (test code = 30 mmol/L 23-31 6753988011) AGAP (test code = 8 2-16 4488413557) BUN (test code = 21 mg/dL 7-23 5301427614) GLUCOSE (test code = 78 mg/dL 70-110 0968582095) CREATININE (test code = 0.86 mg/dL 0.50-1.04 3157187515) CALCIUM (test code = 7.5 mg/dL 8.6-10.6 L 7032519314) eGFR (test code = 66.2 mL/min/1.73m2 2862399166) KRISTIN (test code = KRISTIN) Association of Glomerular Filtration Rate (GFR) and Staging of Kidney Disease* + --+ --+ ------+| GFR (mL/min/1.73 m2) ?| With Kidney Damage ?| ?Without Kidney Damage+ --------+ --------+ +| ?>90 ?| ?Stage one ?| ? Normal ?+ ---+ ---+ -------+| ?60-89 ?| ?Stage two ?| ? Decreased GFR ? + --+ --+ ------+| ?30-59 ?| ?Stage three ?| ? Stage three ? + --+ --+ ------+| ?15-29 ?| ?Stage four ? | ? Stage four ?+ ---+ ---+ -------+| ?<15 (or dialysis) ? ?| ?Stage five ? | ? Stage five ?+ ---+ ---+ -------+ *Each stage assumes the associated GFR level has been in effect for at least three months. ?Stages 1 to 5, with or without kidney disease, indicate chronic kidney disease. Notes: Determination of stages one and two (with eGFR >59mL/min/1.73 m2) requires estimation of kidney damage for at least three months as defined by structural or functional abnormalities of the kidney, manifested by either:Pathological abnormalities or Markers of kidney damage (including abnormalities in the composition of the blood or urine or abnormalities in imaging tests). Lab Interpretation Abnormal (test code = 96765-3) [facility] HospitalMagn[facility] Bzzoa1872-14-05 09:59:24 Test Item Value Reference Range Interpretation Comments MAGNESIUM (test code = 8282488413) 1.5 mg/dL 1.7-2.4 L Lab Interpretation (test code = Abnormal 63755-5) [facility] HospitalProthrombin Time / [id number] 09:23:24 Test Item Value Reference Range Interpretation Comments PROTIME PATIENT (test 20.2 See_Comment H [Auto mated message] code = 5964-2) The system [employer] generated this result transmitted ref erence range: 10.1 - 1 2.6 Seconds. The reference range was not used to int erpret this result as normal/abnormal . INR (test code = 6301-6) 1.8 Nor mal INR <1.1; Warfarin Therap eutic range 2.0 to 3. 0 or 2.5 to 3.5, dep ending upon the indica tions. Lab Interpretation (test Abnormal code = 27344-8) [facility]aPTT2023-[facility] 09:23:24 Test Item Value Reference Range Interpretation Comments APTT Patient (test code = 36 See_Comment [ Automated message] 3173-2) The system [employer] generated this result transmitted ref erence range: 26 - 36 Seconds. The re ference range was not u sed to interpret this result as normal/abnor mal. Lab Interpretation (test Normal code = 42452-0) [facility] HospitalProthrom[facility] Time / [id number] 09:23:24 Test Item Value Reference Range Interpretation Comments PROTIME PATIENT (test 20.2 See_Comment H [Auto mated message] code = 5964-2) The system [employer] generated this result transmitted ref erence range: 10.1 - 1 2.6 Seconds. The reference range was not used to int erpret this result as normal/abnormal . INR (test code = 6301-6) 1.8 Nor mal INR <1.1; Warfarin Therap eutic range 2.0 to 3. 0 or 2.5 to 3.5, dep ending upon the indica tions. Lab Interpretation (test Abnormal code = 36491-3) [facility] 09:23:24 Test Item Value Reference Range Interpretation Comments APTT Patient (test code = 36 See_Comment [ Automated message] 3173-2) The system [employer] generated this result transmitted ref erence range: 26 - 36 Seconds. The re ference range was not u sed to interpret this result as normal/abnor mal. Lab Interpretation (test Normal code = 84762-2) [facility] with Bzqlhzxnlsfg3086-58-67 09:15:46 Test Item Value Reference Range Interpretation Comments WBC (test code = 4.89 See_Comment [Automated 6690-2) message] The sy stem which generated this result transmitted reference range : 4.30 - 11.10 10*3/?L. The reference range was not used to interpret this result as normal/abnormal . RBC (test code = 4.12 See_Comment [Automated 789-8) message] The sy stem which generated this result transmitted reference range : 3.93 - 5.25 10*6/?L. The reference range was not used to interpret this result as normal/abnormal . HGB (test code = 10.3 g/dL 11.6-15.0 L 718-7) HCT (test code = 35.2 % 35.7-45.2 L 4544-3) MCV (test code = 85.4 fL 80.6-95.5 787-2) MCH (test code = 25.0 pg 25.9-32.8 L 785-6) MCHC (test code = 29.3 g/dL 31.6-35.1 L 786-4) RDW-SD (test code = 56.1 fL 39.0-49.9 H 41784-4) RDW-CV (test code = 18.3 % 12.0-15.5 H 788-0) PLT (test code = 155 See_Comment L [Automated 777-3) message] The sy stem which generated this result transmitted reference range : 166 - 358 10*3/ ?L. The reference r venkat was not used to interpret this result as normal/abnormal . MPV (test code = 10.9 fL 9.5-12.9 66348-4) NRBC/100 WBC (test 2.9 See_Comment [Automat ed code = 0478373583) message] The system which generated this result transmitted reference range : 0.0 - 10.0 /100 WBCs. The refer ence range was not u sed to interpret th is result as normal/abnormal . NRBC x10^3 (test code 0.14 See_Comment [Auto mated = 9546254280) message] The s ystem which generated this result transmitted reference range : 10*3/?L. The reference range was not used to interpret this result as normal/abnormal . GRAN MAT (NEUT) % 71.3 % (test code = 770-8) IMM GRAN % (test code 1.40 % = 3848989320) LYMPH % (test code = 10.0 % 736-9) MONO % (test code = 15.1 % 5905-5) EOS % (test code = 1.8 % 713-8) BASO % (test code = 0.4 % 706-2) GRAN MAT x10^3(ANC) 3.48 10*3/uL 1.88-7.09 (test code = 9711152108) IMM GRAN x10^3 (test 0.07 10*3/uL 0.00-0.06 H code = 8346027431) LYMPH x10^3 (test code 0.49 10*3/uL 1.32-3.29 L = 731-0) MONO x10^3 (test code 0.74 10*3/uL 0.33-0.92 = 742-7) EOS x10^3 (test code = 0.09 10*3/uL 0.03-0.39 711-2) BASO x10^3 (test code 0.01-0.07 = 704-7) Lab Interpretation Abnormal (test code = 80054-8) [facility] with Tpncrwwllsca2444-39-24 09:15:46 Test Item Value Reference Range Interpretation Comments WBC (test code = 4.89 See_Comment [Automated 2978-2) message] The sy stem which generated this result transmitted reference range : 4.30 - 11.10 10*3/?L. The reference range was not used to interpret this result as normal/abnormal . RBC (test code = 4.12 See_Comment [Automated 480-8) message] The sy stem which generated this result transmitted reference range : 3.93 - 5.25 10*6/?L. The reference range was not used to interpret this result as normal/abnormal . HGB (test code = 10.3 g/dL 11.6-15.0 L 718-7) HCT (test code = 35.2 % 35.7-45.2 L 4544-3) MCV (test code = 85.4 fL 80.6-95.5 787-2) MCH (test code = 25.0 pg 25.9-32.8 L 785-6) MCHC (test code = 29.3 g/dL 31.6-35.1 L 786-4) RDW-SD (test code = 56.1 fL 39.0-49.9 H 87939-4) RDW-CV (test code = 18.3 % 12.0-15.5 H 788-0) PLT (test code = 155 See_Comment L [Automated 777-3) message] The sy stem which generated this result transmitted reference range : 166 - 358 10*3/ ?L. The reference r venkat was not used to interpret this result as normal/abnormal . MPV (test code = 10.9 fL 9.5-12.9 29891-1) NRBC/100 WBC (test 2.9 See_Comment [Automat ed code = 6896088904) message] The system which generated this result transmitted reference range : 0.0 - 10.0 /100 WBCs. The refer ence range was not u sed to interpret th is result as normal/abnormal . NRBC x10^3 (test code 0.14 See_Comment [Auto mated = 9128605869) message] The s ystem which generated this result transmitted reference range : 10*3/?L. The reference range was not used to interpret this result as normal/abnormal . GRAN MAT (NEUT) % 71.3 % (test code = 770-8) IMM GRAN % (test code 1.40 % = 0671709573) LYMPH % (test code = 10.0 % 736-9) MONO % (test code = 15.1 % 5905-5) EOS % (test code = 1.8 % 713-8) BASO % (test code = 0.4 % 706-2) GRAN MAT x10^3(ANC) 3.48 10*3/uL 1.88-7.09 (test code = 0750026277) IMM GRAN x10^3 (test 0.07 10*3/uL 0.00-0.06 H code = 8510510085) LYMPH x10^3 (test code 0.49 10*3/uL 1.32-3.29 L = 731-0) MONO x10^3 (test code 0.74 10*3/uL 0.33-0.92 = 742-7) EOS x10^3 (test code = 0.09 10*3/uL 0.03-0.39 711-2) BASO x10^3 (test code 0.01-0.07 = 704-7) Lab Interpretation Abnormal (test code = 86839-8) [facility] + Lactic Tics9384-51-40 00:50:09 Test Item Value Reference Range Interpretation Comments PH (test code = 2) 7.33 7.35-7.45 L PCO2 (test code = 64 See_Comment H [Automate d 4438088514) message] The sy stem which generated this result transmitted reference range : 35 - 45 mmHg. The reference range was not used to interpret this result as normal/abnormal . PO2 (test code = 78 See_Comment L [Automated 7358391886) message] The sy stem which generated this result transmitted reference range : 80 - 100 mmHg. The reference range was not used to interpret this result as normal/abnormal . HCO3 (test code = 33 See_Comment H [Automate d 3665844620) message] The sy stem which generated this result transmitted reference range : 22 - 26 mEq/L. The reference range was not used to interpret this result as normal/abnormal . BE (test code = 5.1 See_Comment H [Automated 6726094908) message] The sy stem which generated this result transmitted reference range : -3.0 - 3.0 mEq/ L. The reference r venkat was not used to interpret this result as normal/abnormal . THB (test code = 11.6 g/dL 12.0-16.0 L 0291654017) %O2HB (test code = 94.5 % 94.0-99.0 5352922334) %COHB ART (test code = 1.5 % 0.0-1.5 6233752173) %METHB ART (test code = 0.1 % 0.4-1.5 L 8453726559) VOL%O2 ART (test code = 15.5 % 15.0-23.0 1459221211) NA (test code = 136 mmol/L 135-145 2250191205) K+ (test code = 3.9 mmol/L 3.5-5.0 0664206742) AC CA IONZ (test code = 4.60 mg/dL 4.50-5.30 6473089368) GLUCOSE (test code = 88 mg/dL 70-110 5009767069) LACTIC ACID (test code 1.39 mmol/L 0.50-2.20 = 1386196745) Lab Interpretation Abnormal (test code = 79397-7) [facility] + Lactic Gyxo5073-47-33 00:50:09 Test Item Value Reference Range Interpretation Comments PH (test code = 2) 7.33 7.35-7.45 L PCO2 (test code = 64 See_Comment H [Automate d 1845339698) message] The sy stem which generated this result transmitted reference range : 35 - 45 mmHg. The reference range was not used to interpret this result as normal/abnormal . PO2 (test code = 78 See_Comment L [Automated 3346029589) message] The sy stem which generated this result transmitted reference range : 80 - 100 mmHg. The reference range was not used to interpret this result as normal/abnormal . HCO3 (test code = 33 See_Comment H [Automate d 6245382477) message] The sy stem which generated this result transmitted reference range : 22 - 26 mEq/L. The reference range was not used to interpret this result as normal/abnormal . BE (test code = 5.1 See_Comment H [Automated 3270304394) message] The sy stem which generated this result transmitted reference range : -3.0 - 3.0 mEq/ L. The reference r venkat was not used to interpret this result as normal/abnormal . THB (test code = 11.6 g/dL 12.0-16.0 L 6636191475) %O2HB (test code = 94.5 % 94.0-99.0 4341322371) %COHB ART (test code = 1.5 % 0.0-1.5 9104886074) %METHB ART (test code = 0.1 % 0.4-1.5 L 7554869356) VOL%O2 ART (test code = 15.5 % 15.0-23.0 1832730113) NA (test code = 136 mmol/L 135-145 9295457488) K+ (test code = 3.9 mmol/L 3.5-5.0 7294346306) AC CA IONZ (test code = 4.60 mg/dL 4.50-5.30 1748837769) GLUCOSE (test code = 88 mg/dL 70-110 5444026123) LACTIC ACID (test code 1.39 mmol/L 0.50-2.20 = 3721720365) Lab Interpretation Abnormal (test code = 08475-6) [facility] + Lactic Pbih5973-45-51 22:29:56 Test Item Value Reference Range Interpretation Comments PH (test code = 2) 7.28 7.35-7.45 L PCO2 (test code = 74 See_Comment H [Automate d 1253789281) message] The sy stem which generated this result transmitted reference range : 35 - 45 mmHg. The reference range was not used to interpret this result as normal/abnormal . PO2 (test code = 86 See_Comment [Automated 0233373484) message] The sy stem which generated this result transmitted reference range : 80 - 100 mmHg. The reference range was not used to interpret this result as normal/abnormal . HCO3 (test code = 35 See_Comment H [Automate d 3480503780) message] The sy stem which generated this result transmitted reference range : 22 - 26 mEq/L. The reference range was not used to interpret this result as normal/abnormal . BE (test code = 5.8 See_Comment H [Automated 0737961636) message] The sy stem which generated this result transmitted reference range : -3.0 - 3.0 mEq/ L. The reference r venkat was not used to interpret this result as normal/abnormal . THB (test code = 11.3 g/dL 12.0-16.0 L 1230916606) %O2HB (test code = 94.3 % 94.0-99.0 1465526198) %COHB ART (test code = 1.6 % 0.0-1.5 H 6831903259) %METHB ART (test code = 0.2 % 0.4-1.5 L 4755966851) VOL%O2 ART (test code = 15.1 % 15.0-23.0 0923445403) NA (test code = 135 mmol/L 135-145 6009666852) K+ (test code = 3.3 mmol/L 3.5-5.0 L 3763571793) AC CA IONZ (test code = 4.60 mg/dL 4.50-5.30 3617488579) GLUCOSE (test code = 91 mg/dL 70-110 5207005633) LACTIC ACID (test code 1.32 mmol/L 0.50-2.20 = 4958394415) Lab Interpretation Abnormal (test code = 61013-1) [facility] + Lactic Mdtg6784-81-32 22:29:56 Test Item Value Reference Range Interpretation Comments PH (test code = 2) 7.28 7.35-7.45 L PCO2 (test code = 74 See_Comment H [Automate d 5364711285) message] The sy stem which generated this result transmitted reference range : 35 - 45 mmHg. The reference range was not used to interpret this result as normal/abnormal . PO2 (test code = 86 See_Comment [Automated 5965729301) message] The sy stem which generated this result transmitted reference range : 80 - 100 mmHg. The reference range was not used to interpret this result as normal/abnormal . HCO3 (test code = 35 See_Comment H [Automate d 3870428900) message] The sy stem which generated this result transmitted reference range : 22 - 26 mEq/L. The reference range was not used to interpret this result as normal/abnormal . BE (test code = 5.8 See_Comment H [Automated 9991858243) message] The sy stem which generated this result transmitted reference range : -3.0 - 3.0 mEq/ L. The reference r venkat was not used to interpret this result as normal/abnormal . THB (test code = 11.3 g/dL 12.0-16.0 L 3056147388) %O2HB (test code = 94.3 % 94.0-99.0 7228894296) %COHB ART (test code = 1.6 % 0.0-1.5 H 0801052009) %METHB ART (test code = 0.2 % 0.4-1.5 L 3876248300) VOL%O2 ART (test code = 15.1 % 15.0-23.0 6743110660) NA (test code = 135 mmol/L 135-145 6945021879) K+ (test code = 3.3 mmol/L 3.5-5.0 L 2315100394) AC CA IONZ (test code = 4.60 mg/dL 4.50-5.30 4211441916) GLUCOSE (test code = 91 mg/dL 70-110 8953590012) LACTIC ACID (test code 1.32 mmol/L 0.50-2.20 = 7740165620) Lab Interpretation Abnormal (test code = 79935-6) [facility] Odawvar0632-78-63 19:54:26 Test Item Value Reference Range Interpretation Comments CRP (test code = 4131168422) 9.4 mg/dL <=0.8 H Lab Interpretation (test code = Abnormal 60728-4) [facility] Xuwtycp9247-96-46 19:54:26 Test Item Value Reference Range Interpretation Comments CRP (test code = 3393143133) 9.4 mg/dL <=0.8 H Lab Interpretation (test code = Abnormal 03022-9) [facility] 18:50:24 Test Item Value Reference Range Interpretation Comments MAGNESIUM (test code = 9698390008) 1.4 mg/dL 1.7-2.4 L Lab Interpretation (test code = Abnormal 76664-2) [facility] 18:50:24 Test Item Value Reference Range Interpretation Comments MAGNESIUM (test code = 6020278903) 1.4 mg/dL 1.7-2.4 L Lab Interpretation (test code = Abnormal 23319-6) [facility] HospitalFerritin Oocye2176-45-63 18:29:24 Test Item Value Reference Range Interpretation Comments FERRITIN (test code = 30.4 ng/mL 11.0-264.0 2730782483) KRISTIN (test code = KRISTIN) Biotin has been reported to cause a negative bias, interpret results relative to patient's use of biotin. Lab Interpretation (test Normal code = 52841-0) [facility] HospitalFerrit[facility] Euhrg8180-63-55 18:29:24 Test Item Value Reference Range Interpretation Comments FERRITIN (test code = 30.4 ng/mL 11.0-264.0 3178693287) KRISTIN (test code = KRISTIN) Biotin has been reported to cause a negative bias, interpret results relative to patient's use of biotin. Lab Interpretation (test Normal code = 88789-9) [facility] HospitalThyroid Stimulating Hlbkoni0350-39-19 18:25:02 Test Item Value Reference Range Interpretation Comments TSH (test code = 2.43 See_Comment [Automated message] 2354306158) The system [employer] generated this result transmitted ref erence range: 0.45 - 4 .70 mIU/L. The refe rence range was not u sed to interpret this result as normal/abnor mal. Lab Interpretation (test Normal code = 30253-2) [facility] Huqyzwp5442-93-88 18:25:02 Test Item Value Reference Range Interpretation Comments TSH (test code = 2.43 See_Comment [Automated message] 3659442081) The system [employer] generated this result transmitted ref erence range: 0.45 - 4 .70 mIU/L. The refe rence range was not u sed to interpret this result as normal/abnor mal. Lab Interpretation (test Normal code = 40803-2) [facility] [id number] 18:13:59 Test Item Value Reference Range Interpretation Comments FREE T4 (test code = 2.33 See_Comment H [Autom ated message] 1983747466) The system [employer] generated this result transmitted ref erence range: 0.78 - 2 .20 ng/dL:. The ref erence range was not u sed to interpret this result as normal/abnor mal. Lab Interpretation (test Abnormal code = 11803-1) [facility] [id number] 18:13:59 Test Item Value Reference Range Interpretation Comments FREE T4 (test code = 2.33 See_Comment H [Autom ated message] 6222155855) The system [employer] generated this result transmitted ref erence range: 0.78 - 2 .20 ng/dL:. The ref erence range was not u sed to interpret this result as normal/abnor mal. Lab Interpretation (test Abnormal code = 68541-5) [id number] 18:06:57 Test Item Value Reference Range Interpretation Comments TROPONIN I (test code = 0.034 ng/mL <=0.034 7302600945) KRISTIN (test code = KRISTIN) Reference (Normal) Range (defined by the 99th percentile reference limit): <= 0.034 ng/mL Note: Cardiac troponin begins to rise 3-4 hours after the onset of ischemia. Repeat in 4-6 hours if the sample was drawn within 3-4 hours of the onset of the symptom and found normal. Diagnosis of myocardial injury is made with acute changes in cTn concentrations with at least one serial sample above the 99th percentile upper reference limit (URL), taken together with the patient's clinical presentation. Biotin has been reported to cause a negative bias, interpret results relative to patient's use of biotin. Lab Interpretation Normal (test code = 26339-5) [facility] YIM-UEL2338-18-24 18:06:57 Test Item Value Reference Range Interpretation Comments NT-proBNP (test code = 71067 pg/mL <=125 H 2125762630) KRISTIN (test code = KRISTIN) Biotin has been reported to cause a negative bias, interpret results relative to patient's use of biotin. Lab Interpretation (test Abnormal code = 02475-6) [facility] HospitalTroponin [id number] 18:06:57 Test Item Value Reference Range Interpretation Comments TROPONIN I (test code = 0.034 ng/mL <=0.034 [id number]) KRISTIN (test code = KRISTIN) Reference (Normal) Range (defined by the 99th percentile reference limit): <= 0.034 ng/mL Note: Cardiac troponin begins to rise 3-4 hours after the onset of ischemia. Repeat in 4-6 hours if the sample was drawn within 3-4 hours of the onset of the symptom and found normal. Diagnosis of myocardial injury is made with acute changes in cTn concentrations with at least one serial sample above the 99th percentile upper reference limit (URL), taken together with the patient's clinical presentation. Biotin has been reported to cause a negative bias, interpret results relative to patient's use of biotin. Lab Interpretation Normal (test code = 00418-0) [id number] 18:06:57 Test Item Value Reference Range Interpretation Comments NT-proBNP (test code = 08637 pg/mL <=125 H 4924616710) KRISTIN (test code = KRISTIN) Biotin has been reported to cause a negative bias, interpret results relative to patient's use of biotin. Lab Interpretation (test Abnormal code = 82983-9) [facility] [id number] 18:03:58 Test Item Value Reference Range Interpretation Comments IRON (test code = 7671789517) 17 ug/dL 50-160 L TIBC (test code = 7724804203) 389 ug/dL 250-410 % FE SAT (test code = 2056976837) 4 % 20-50 L Lab Interpretation (test code = Abnormal 72552-9) [facility] [id number] 18:03:58 Test Item Value Reference Range Interpretation Comments IRON (test code = 6897600837) 17 ug/dL 50-160 L TIBC (test code = 6237505347) 389 ug/dL 250-410 % FE SAT (test code = 6398843033) 4 % 20-50 L Lab Interpretation (test code = Abnormal 56261-3) [facility] METABOLIC PANEL (NA, K, CL, CO2, GLUCOSE, BUN, CREATININE, CA)2022-10-02 17:53:59 Test Item Value Reference Range Interpretation Comments NA (test code = 137 mmol/L 135-145 7714735138) K (test code = 3.7 mmol/L 3.5-5.0 2434464998) CL (test code = 97 mmol/L 98-108 L 7263650561) CO2 TOTAL (test code = 33 mmol/L 23-31 H 0559433207) AGAP (test code = 7 2-16 7877862103) BUN (test code = 23 mg/dL 7-23 6593035500) GLUCOSE (test code = 93 mg/dL 70-110 8937020372) CREATININE (test code = 1.15 mg/dL 0.50-1.04 H 0726760896) CALCIUM (test code = 8.2 mg/dL 8.6-10.6 L 7764333040) eGFR (test code = 47.4 mL/min/1.73m2 2113066974) KRISTIN (test code = KRISTIN) Association of Glomerular Filtration Rate (GFR) and Staging of Kidney Disease* + --+ --+ ------+| GFR (mL/min/1.73 m2) ?| With Kidney Damage ?| ?Without Kidney Damage+ --------+ --------+ +| ?>90 ?| ?Stage one ?| ? Normal ?+ ---+ ---+ -------+| ?60-89 ?| ?Stage two ?| ? Decreased GFR ? + --+ --+ ------+| ?30-59 ?| ?Stage three ?| ? Stage three ? + --+ --+ ------+| ?15-29 ?| ?Stage four ? | ? Stage four ?+ ---+ ---+ -------+| ?<15 (or dialysis) ? ?| ?Stage five ? | ? Stage five ?+ ---+ ---+ -------+ *Each stage assumes the associated GFR level has been in effect for at least three months. ?Stages 1 to 5, with or without kidney disease, indicate chronic kidney disease. Notes: Determination of stages one and two (with eGFR >59mL/min/1.73 m2) requires estimation of kidney damage for at least three months as defined by structural or functional abnormalities of the kidney, manifested by either:Pathological abnormalities or Markers of kidney damage (including abnormalities in the composition of the blood or urine or abnormalities in imaging tests). Lab Interpretation Abnormal (test code = 19229-3) [facility]216[facility] (ALB,T.PRO,BILI T,BU/BC,ALT,AST,ALK PHOS)2022-10-02 17:53:59 Test Item Value Reference Range Interpretation Comments TOTAL BILI (test code = 6091179219) 1.7 mg/dL 0.1-1.1 H BILI UNCON (test code = 3885225257) 0.5 mg/dL 0.1-1.1 BILI CONJ (test code = 8641960702) 0.0 mg/dL 0.0-0.3 T PROTEIN (test code = 7095538660) 6.8 g/dL 6.3-8.2 ALBUMIN (test code = 1124557259) 3.1 g/dL 3.5-5.0 L ALK PHOS (test code = 4006051960) 82 U/L 34-122 ALTv (test code = 1742-6) 30 U/L 5-35 AST(SGOT) (test code = 1051395425) 46 U/L 13-40 H Lab Interpretation (test code = Abnormal 40205-7) [facility] METABOLIC PANEL (NA, K, CL, CO2, GLUCOSE, BUN, CREATININE, CA)2022-10-02 17:53:59 Test Item Value Reference Range Interpretation Comments NA (test code = 137 mmol/L 135-145 6466735810) K (test code = 3.7 mmol/L 3.5-5.0 7565654868) CL (test code = 97 mmol/L 98-108 L 6702923478) CO2 TOTAL (test code = 33 mmol/L 23-31 H 1434839216) AGAP (test code = 7 2-16 2444549019) BUN (test code = 23 mg/dL 7-23 5361841203) GLUCOSE (test code = 93 mg/dL 70-110 8987510692) CREATININE (test code = 1.15 mg/dL 0.50-1.04 H 9391837732) CALCIUM (test code = 8.2 mg/dL 8.6-10.6 L 0567604130) eGFR (test code = 47.4 mL/min/1.73m2 3231960629) KRISTIN (test code = KRISTIN) Association of Glomerular Filtration Rate (GFR) and Staging of Kidney Disease* + --+ --+ ------+| GFR (mL/min/1.73 m2) ?| With Kidney Damage ?| ?Without Kidney Damage+ --------+ --------+ +| ?>90 ?| ?Stage one ?| ? Normal ?+ ---+ ---+ -------+| ?60-89 ?| ?Stage two ?| ? Decreased GFR ? + --+ --+ ------+| ?30-59 ?| ?Stage three ?| ? Stage three ? + --+ --+ ------+| ?15-29 ?| ?Stage four ? | ? Stage four ?+ ---+ ---+ -------+| ?<15 (or dialysis) ? ?| ?Stage five ? | ? Stage five ?+ ---+ ---+ -------+ *Each stage assumes the associated GFR level has been in effect for at least three months. ?Stages 1 to 5, with or without kidney disease, indicate chronic kidney disease. Notes: Determination of stages one and two (with eGFR >59mL/min/1.73 m2) requires estimation of kidney damage for at least three months as defined by structural or functional abnormalities of the kidney, manifested by either:Pathological abnormalities or Markers of kidney damage (including abnormalities in the composition of the blood or urine or abnormalities in imaging tests). Lab Interpretation Abnormal (test code = 77348-0) [facility]87467[facility] (ALB,T.PRO,BILI T,BU/BC,ALT,AST,ALK PHOS)2022-10-02 17:53:59 Test Item Value Reference Range Interpretation Comments TOTAL BILI (test code = 2802553578) 1.7 mg/dL 0.1-1.1 H BILI UNCON (test code = 6227841948) 0.5 mg/dL 0.1-1.1 BILI CONJ (test code = 6005385107) 0.0 mg/dL 0.0-0.3 T PROTEIN (test code = 8778584943) 6.8 g/dL 6.3-8.2 ALBUMIN (test code = 8475954836) 3.1 g/dL 3.5-5.0 L ALK PHOS (test code = 8333231724) 82 U/L 34-122 ALTv (test code = 1742-6) 30 U/L 5-35 AST(SGOT) (test code = 3897720350) 46 U/L 13-40 H Lab Interpretation (test code = Abnormal 46813-1) [facility] WITH [id number] 17:45:12 Test Item Value Reference Range Interpretation Comments WBC (test code = 6.01 See_Comment [Automated 9470-2) message] The sy stem which generated this result transmitted reference range : 4.30 - 11.10 10*3/?L. The reference range was not used to interpret this result as normal/abnormal . RBC (test code = 3.98 See_Comment [Automated 979-8) message] The sy stem which generated this result transmitted reference range : 3.93 - 5.25 10*6/?L. The reference range was not used to interpret this result as normal/abnormal . HGB (test code = 9.8 g/dL 11.6-15.0 L 718-7) HCT (test code = 34.2 % 35.7-45.2 L 4544-3) MCV (test code = 85.9 fL 80.6-95.5 787-2) MCH (test code = 24.6 pg 25.9-32.8 L 785-6) MCHC (test code = 28.7 g/dL 31.6-35.1 L 786-4) RDW-SD (test code = 56.5 fL 39.0-49.9 H 38208-8) RDW-CV (test code = 18.3 % 12.0-15.5 H 788-0) PLT (test code = 211 See_Comment [Automated 777-3) message] The sy stem which generated this result transmitted reference range : 166 - 358 10*3/ ?L. The reference r venkat was not used to interpret this result as normal/abnormal . MPV (test code = 12.1 fL 9.5-12.9 25908-7) NRBC/100 WBC (test 1.0 See_Comment [Automat ed code = 5074816383) message] The system which generated this result transmitted reference range : 0.0 - 10.0 /100 WBCs. The refer ence range was not u sed to interpret th is result as normal/abnormal . NRBC x10^3 (test code 0.06 See_Comment [Auto mated = 9911043947) message] The s ystem which generated this result transmitted reference range : 10*3/?L. The reference range was not used to interpret this result as normal/abnormal . GRAN MAT (NEUT) % 69.3 % (test code = 770-8) IMM GRAN % (test code 0.80 % = 3890863744) LYMPH % (test code = 16.3 % 736-9) MONO % (test code = 12.8 % 5905-5) EOS % (test code = 0.5 % 713-8) BASO % (test code = 0.3 % 706-2) GRAN MAT x10^3(ANC) 4.16 10*3/uL 1.88-7.09 (test code = 8186716332) IMM GRAN x10^3 (test 0.05 10*3/uL 0.00-0.06 code = 1654101591) LYMPH x10^3 (test code 0.98 10*3/uL 1.32-3.29 L = 731-0) MONO x10^3 (test code 0.77 10*3/uL 0.33-0.92 = 742-7) EOS x10^3 (test code = 0.03 10*3/uL 0.03-0.39 711-2) BASO x10^3 (test code 0.01-0.07 = 704-7) Lab Interpretation Abnormal (test code = 60001-7) [facility] WITH [id number] 17:45:12 Test Item Value Reference Range Interpretation Comments WBC (test code = 6.01 See_Comment [Automated 6690-2) message] The sy stem which generated this result transmitted reference range : 4.30 - 11.10 10*3/?L. The reference range was not used to interpret this result as normal/abnormal . RBC (test code = 3.98 See_Comment [Automated 029-8) message] The sy stem which generated this result transmitted reference range : 3.93 - 5.25 10*6/?L. The reference range was not used to interpret this result as normal/abnormal . HGB (test code = 9.8 g/dL 11.6-15.0 L 718-7) HCT (test code = 34.2 % 35.7-45.2 L 4544-3) MCV (test code = 85.9 fL 80.6-95.5 787-2) MCH (test code = 24.6 pg 25.9-32.8 L 785-6) MCHC (test code = 28.7 g/dL 31.6-35.1 L 786-4) RDW-SD (test code = 56.5 fL 39.0-49.9 H 42716-6) RDW-CV (test code = 18.3 % 12.0-15.5 H 788-0) PLT (test code = 211 See_Comment [Automated 077-3) message] The sy stem which generated this result transmitted reference range : 166 - 358 10*3/ ?L. The reference r venkat was not used to interpret this result as normal/abnormal . MPV (test code = 12.1 fL 9.5-12.9 92893-9) NRBC/100 WBC (test 1.0 See_Comment [Automat ed code = 7943126368) message] The system which generated this result transmitted reference range : 0.0 - 10.0 /100 WBCs. The refer ence range was not u sed to interpret th is result as normal/abnormal . NRBC x10^3 (test code 0.06 See_Comment [Auto mated = 4019684184) message] The s ystem which generated this result transmitted reference range : 10*3/?L. The reference range was not used to interpret this result as normal/abnormal . GRAN MAT (NEUT) % 69.3 % (test code = 770-8) IMM GRAN % (test code 0.80 % = 9423920372) LYMPH % (test code = 16.3 % 736-9) MONO % (test code = 12.8 % 5905-5) EOS % (test code = 0.5 % 713-8) BASO % (test code = 0.3 % 706-2) GRAN MAT x10^3(ANC) 4.16 10*3/uL 1.88-7.09 (test code = 3947939155) IMM GRAN x10^3 (test 0.05 10*3/uL 0.00-0.06 code = 7521582976) LYMPH x10^3 (test code 0.98 10*3/uL 1.32-3.29 L = 731-0) MONO x10^3 (test code 0.77 10*3/uL 0.33-0.92 = 742-7) EOS x10^3 (test code = 0.03 10*3/uL 0.03-0.39 711-2) BASO x10^3 (test code 0.01-0.07 = 704-7) Lab Interpretation Abnormal (test code = 98642-7) [facility]th[facility] Time / [id number] 17:30:14 Test Item Value Reference Range Interpretation Comments PROTIME PATIENT (test 20.3 See_Comment H [Auto mated message] code = 5964-2) The system [employer] generated this result transmitted ref erence range: 10.1 - 1 2.6 Seconds. The reference range was not used to int erpret this result as normal/abnormal . INR (test code = 6301-6) 1.8 Nor mal INR <1.1; Warfarin Therap eutic range 2.0 to 3. 0 or 2.5 to 3.5, dep ending upon the indica tions. Lab Interpretation (test Abnormal code = 61125-6) [facility] 17:30:14 Test Item Value Reference Range Interpretation Comments APTT Patient (test code = 35 See_Comment [ Automated message] 3173-2) The system [employer] generated this result transmitted ref erence range: 26 - 36 Seconds. The re ference range was not u sed to interpret this result as normal/abnor mal. Lab Interpretation (test Normal code = 48580-6) [facility] HospitalProthrombin Time / [id number] 17:30:14 Test Item Value Reference Range Interpretation Comments PROTIME PATIENT (test 20.3 See_Comment H [Auto mated message] code = 5964-2) The system [employer] generated this result transmitted ref erence range: 10.1 - 1 2.6 Seconds. The reference range was not used to int erpret this result as normal/abnormal . INR (test code = 6301-6) 1.8 Nor mal INR <1.1; Warfarin Therap eutic range 2.0 to 3. 0 or 2.5 to 3.5, dep ending upon the indica tions. Lab Interpretation (test Abnormal code = 09323-6) [facility] 17:30:14 Test Item Value Reference Range Interpretation Comments APTT Patient (test code = 35 See_Comment [ Automated message] 3173-2) The system [employer] generated this result transmitted ref erence range: 26 - 36 Seconds. The re ference range was not u sed to interpret this result as normal/abnor mal. Lab Interpretation (test Normal code = 99954-8) [facility] HospitalSedimentation [id number] 17:28:15 Test Item Value Reference Range Interpretation Comments ESR (test code = 107 See_Comment H [Automated message] 86565-7) The system [employer] generated this result transmitted ref erence range: 2 - 30 m m/HR. The reference r venkat was not used to interpret this result as normal/abnor mal. Lab Interpretation (test Abnormal code = 77735-2) [facility] Hospital[facility]iment[facility] [id number] 17:28:15 Test Item Value Reference Range Interpretation Comments ESR (test code = 107 See_Comment H [Automated message] 84623-2) The system [employer] generated this result transmitted ref erence range: 2 - 30 m m/HR. The reference r venkat was not used to interpret this result as normal/abnor mal. Lab Interpretation (test Abnormal code = 34272-2) [facility] [id number] 17:22:47 Test Item Value Reference Range Interpretation Comments LACTIC ACID (test code = 1.78 mmol/L 0.50-2.20 7901491198) Lab Interpretation (test code = Normal 05887-3) [facility] [id number] 17:22:47 Test Item Value Reference Range Interpretation Comments LACTIC ACID (test code = 1.78 mmol/L 0.50-2.20 3041995890) Lab Interpretation (test code = Normal 96508-9) [facility] GLUCOSE (AUTOMATED)2022-10-02 15:42:08 Test Item Value Reference Range Interpretation Comments POCT GLU (test code = 1404445430) 107 mg/dL 70-110 Lab Interpretation (test code = Normal 49363-0) [facility] GLUCOSE (AUTOMATED)2022-10-02 15:42:08 Test Item Value Reference Range Interpretation Comments POCT GLU (test code = 6206389715) 107 mg/dL 70-110 Lab Interpretation (test code = Normal 05212-0) [facility] 20 + Lactic [id number] 15:31:35 Test Item Value Reference Range Interpretation Comments PH (test code = 2) 7.31 7.35-7.45 L PCO2 (test code = 67 See_Comment H [Automate d 8113290663) message] The sy stem which generated this result transmitted reference range : 35 - 45 mmHg. The reference range was not used to interpret this result as normal/abnormal . PO2 (test code = 46 See_Comment L [Automated 9439088637) message] The sy stem which generated this result transmitted reference range : 80 - 100 mmHg. The reference range was not used to interpret this result as normal/abnormal . HCO3 (test code = 33 See_Comment H [Automate d 6190605283) message] The sy stem which generated this result transmitted reference range : 22 - 26 mEq/L. The reference range was not used to interpret this result as normal/abnormal . BE (test code = 4.6 See_Comment H [Automated 4331657791) message] The sy stem which generated this result transmitted reference range : -3.0 - 3.0 mEq/ L. The reference r venkat was not used to interpret this result as normal/abnormal . THB (test code = 11.4 g/dL 12.0-16.0 L 2618115752) %O2HB (test code = 73.4 % 94.0-99.0 L 3761131411) %COHB ART (test code = 2.3 % 0.0-1.5 H 0799968222) %METHB ART (test code = 0.3 % 0.4-1.5 L 9873546581) VOL%O2 ART (test code = 11.8 % 15.0-23.0 L 1604137464) NA (test code = 136 mmol/L 135-145 7872552951) K+ (test code = 3.5 mmol/L 3.5-5.0 1594618283) AC CA IONZ (test code = 4.50 mg/dL 4.50-5.30 9358925111) GLUCOSE (test code = 107 mg/dL 70-110 5723623388) LACTIC ACID (test code 1.46 mmol/L 0.50-2.20 = 9321696884) Lab Interpretation Abnormal (test code = 00376-7) [facility] 20 + Lactic [id number] 15:31:35 Test Item Value Reference Range Interpretation Comments PH (test code = 2) 7.31 7.35-7.45 L PCO2 (test code = 67 See_Comment H [Automate d 0732523813) message] The sy stem which generated this result transmitted reference range : 35 - 45 mmHg. The reference range was not used to interpret this result as normal/abnormal . PO2 (test code = 46 See_Comment L [Automated 0714367011) message] The sy stem which generated this result transmitted reference range : 80 - 100 mmHg. The reference range was not used to interpret this result as normal/abnormal . HCO3 (test code = 33 See_Comment H [Automate d 1535387711) message] The sy stem which generated this result transmitted reference range : 22 - 26 mEq/L. The reference range was not used to interpret this result as normal/abnormal . BE (test code = 4.6 See_Comment H [Automated 6466826475) message] The sy stem which generated this result transmitted reference range : -3.0 - 3.0 mEq/ L. The reference r venkat was not used to interpret this result as normal/abnormal . THB (test code = 11.4 g/dL 12.0-16.0 L 8460893424) %O2HB (test code = 73.4 % 94.0-99.0 L 5387534519) %COHB ART (test code = 2.3 % 0.0-1.5 H 3146994314) %METHB ART (test code = 0.3 % 0.4-1.5 L 5055853062) VOL%O2 ART (test code = 11.8 % 15.0-23.0 L 4520907831) NA (test code = 136 mmol/L 135-145 1308436976) K+ (test code = 3.5 mmol/L 3.5-5.0 0200061797) AC CA IONZ (test code = 4.50 mg/dL 4.50-5.30 8220047883) GLUCOSE (test code = 107 mg/dL 70-110 9801690118) LACTIC ACID (test code 1.46 mmol/L 0.50-2.20 = 7403229596) Lab Interpretation Abnormal (test code = 54958-5) [facility]/O [id number] 17:53:00 [facility] 1955 Sex: F Patient Name: ROSALIND LOCKHART Unit No: [id number] EXAMS: CPT CODE: [id number] CT ABDOMEN W/O CONTRAST 77799 HISTORY: TAA, coronary artery disease. CT the chest, unenhanced. Reformatted sagittal and coronal images. COMPARISON: None Automated exposure control, iterative reconstruction technique, and/or adjustment of mA and/or kV according to patient's size was utilized for optimum radiation dose re duction. Neither intravenous nor oral contrast is requested for the exam. Significant pathology may be obscured. The aorta with normal diameter present, at the ascending level. Aortic arch 3.7 cm, descending aorta at 3.8 cm. No findings of aneurysm. Only minimal atherosclerotic calcifications are seen. A very prominent band occurs in the aorta at the aortic hiatus where it crosses midline towards theleft and then swings back to the midline. Coronary arteries with fairly mild calcifications. Cardiomegaly is present. Trace pericardial effusion seen thickness at 3.2 mm. The mediastinum with a denselycalcified right mediastinal nodes from old granulomatous exposure, the granuloma in the superior aspect of the right lower lobe. Chest wall structures are intact. No axillary, pathologic hilar or mediastinal adenopathy.The lung window settings with well- inflated and clear lungs. Some minimal atelectasis seen [...] kV according to patient's size was utilized [facility] NAME: ROSALIND LOCKHART [address] PHYS: [place] [address] : 1955 AGE: 65SEX: F LOC: CEE PHONE #: [phone] EXAM DATE: 06/01/2020 STATUS: REG SDCFAX #: [phone] RAD #: D/C DT PAGE 1 Signed Report (CONTINUED) Patient Name: ROSALIND LOCKHART Unit No: [id number] EXAMS: CPT CODE: [id number] CT ABDOMEN W/O CONTRAST 22714 (Continued) for optimum radiation dose reduction. Neither intravenous nor oral contrast is requested for the exam. Significant pathology may be obscured. The study continues into the abdomen with the aorta have a midlineappearance, maximum diameter at the infrarenal level 3 cm borderline for aneurysm. Atherosclerotic calcification seen affecting the aortoiliac bifurcation vessels prominently, SMA and renal arteries affected as well proximally. No findings of abnormal density within the liver with size upper normal. Gallbladder intact. Spleen normal in size containing multiple tiny granulomata. Excreted contrast seenfrom the kidneys with normal ureteral diameters. Stones could be obscured. No enhancing masses or obstruction. The bowel loops do not show evidence of fluid accumulation for obstruction. Stool content appropriate. The study of the pelvis shows contrast accumulating in the bladder with normal appearance. Uterus and adnexal areas intact. No free fluid evident. Bony structures with degenerative changes seen in the spine mainly L5- S1 with facet arthrosis at the last 2 [...] DEANNA BERMUDEZ RT(R)(CT)(MR); CTDI: DLP: Trnscrpt: 06/01/2020 (1752) [id number] [facility] NAME: ROSALIND LOCKHART [address] PHYS: [place] [address] : 1955 AGE: 65 SEX: F LOC: [employer] PHONE #: [phone] EXAM DATE: 06/01/2020 [place] [facility] [place]: [phone] RAD #: D/C DT PAGE 2 Signed Report Patient Name: ROSALIND LOCKHART Unit No: [id number] EXAMS: CPT CODE: [id number] CT ABDOMEN W/O CONTRAST 75854 (Continued) Orig Print D/T: S: 06/01/2020 (1755) [facility] NAME: ROSALIND LOCKHART [address] PHYS: [place] [address] : 1955 AGE: 65 SEX: F [facility] #: [phone] EXAM DATE: 06/01/2020 [place]US[place] [facility] [place]: [phone] RAD #: D/C DT PAGE 3 Signed Report- CT CHEST W/O [id number] 17:53:00 [facility] : 1955 Sex: F Patient Name: ROSALIND LOCKHART Unit No: [id number] EXAMS: CPT CODE: [id number] CT CHEST W/O CONTRAST 31846 HISTORY: TAA, coronary artery disease. CT the chest, unenhanced. Reformatted sagittal and coronal images. COMPARISON: None Automated exposure control, iterative reconstruction technique, and/or adjustment of mA and/or kV according to patient's size was utilized for optimum radiation dose reduction. Neither intravenous nor oral contrast is requested for the exam. Significant pathology may beobscured. The aorta with normal diameter present, at the ascending level. Aortic arch 3.7 cm, descending aorta at 3.8 cm. No findings of aneurysm. Only minimal atherosclerotic calcifications are seen.A very prominent band occurs in the aorta [...] process. IMPRESSION: Limited Study. Cardiomegaly with trace pericar dial effusion. Tortuosity of the aorta distally at the hiatus. Descending aorta 3.8 cm in diameter. Perfusion characteristics not allowed due to lack of intravenous contrast. Dissection cannot be excluded. HISTORY: Abdominal aortic aneurysm. CT abdomen and pelvis, unenhanced. Reformatted sagittal andcoronal images. COMPARISON: None Automated exposure control, iterative reconstruction technique, and/or adjustment of mA and/or kV according to patient's size was utilized [facility] NAME: ROSALIND LOCKHART [address] PHYS: [place] [address] : 1955 AGE: 65 SEX: F LOC: CEE PHONE #: [phone] EXAM DATE: 06/01/2020 [place] [facility] [place]: [phone] RAD #: D/C DT PAGE 1 Signed Report (CONTINUED) Patient Name: ROSALIND LOCKHART Unit No: [id number] EXAMS: CPT CODE: [id number] CT CHEST W/O CONTRAST 44150 (Continued) for optimum radiation dose reduction. Neither [...] degenerative changes seen in the spine mainly L5- S1 with facet arthrosis at the last 2 [...] BERMUDEZ RT(R)(CT)(MR); CTDI: DLP: Trnscrpt: 06/01/2020 (1753) [email or web address] [facility] NAME: ROSALIND LOCKHART [id number] PHYS: [place] [address] : 1955 AGE: 65 SEX: F LOC: CEE PHONE #: [phone] EXAM DATE: 06/01/2020 STATUS: [facility] FAX #: [phone] RAD #: D/C DT PAGE2 Signed Report Patient Name: ROSALIND LOCKHART Unit No: [id number] EXAMS: CPT CODE: [id number] CHEST W/O CONTRAST [id number] (Continued) Orig Print D/T: S: 06/01/2020 (1756) [facility] NAME: ROSALIND LOCKHART [id number] PHYS: [place] [address] : 1955 AGE: 65 SEX: F LOC: CEE PHONE #: [phone] EXAM DATE: 06/01/2020 STATUS: [facility] FAX #: [phone] RAD #: D/C DT PAGE 3 Signed ReportBASIC METABOLIC [id number] 10:15:00 Test Item Value Reference Range Interpretation [...] 8.4-10.2 L CA) LIPID PROFILE (CORONARY RISK)2020-06-01 10:15:00 Test Item [...] LDL) mg/dLNEAR OPTIMAL/ABOVE OPTIMAL........ .100-12 9 mg/dL BORDERL INE HIGH.........13 0-159 mg/dL HIGH.........16 0-189 mg/dL VERY HIGH.........>/ = 190 mg/dL [id number] 10:15:00 Test Item Value Reference Range Interpretation Comments MAGNESIUM (test code = MAG) 1.1 MG/DL 1.6-2.3 L BASIC METABOLIC [id number] 10:06:00 Test Item Value Reference Range Interpretation [...] LDL (test MG/DL 0-99 code = LDL) [id number] 10:06:00 Test Item Value Reference Range Interpretation Comments MAGNESIUM (test code = MAG) 1.1 MG/DL 1.6-2.3 L COVID 19 Asymptomatic IH [id number] 10:02:00 Test Item Value Reference Range Interpretation [...] of virus (antigen) in the sample." PROTHROMBIN [id number] 09:58:00 Test Item Value Reference Range Interpretation Comments PROTHROMBIN TIME 14.7 SECONDS 9.4-12.5 H PATIENT (test code = PTP) INTERNATIONAL NORMAL 1.3 The INR is to be RATIO (test code = used only for INR) monitoring oral anticoagulantth erap y. INDICATION I NR VALUE ---- ---- ---- -------1. Prophylaxis, de ep venous thrombos is, including high risk surgery. 2.0 - 3.0 2. Prophylaxis, deep venous thrombosis, hip surgery, treatm ent for deep venous thrombosis or pulmonary prevention of systemic emboli sm in patients wit h valvular heart disease, atrial fibrillation, tissue heart va lve, or acute myocar dial infarction. 2.0 - 3.0 3. Director Of Cardiopulmonary Services al prosthesis hear t valves, recurre nt systemic emboli sm. 3.0 - 4.5 PTT [id number] 09:58:00 Test Item Value Reference Range Interpretation Comments PTT ACTIVATED (test code = APTT) 34.1 SECONDS 25.1-36.5 N CBC W/AUTO [id number] 09:44:00 Test Item Value Reference Range Interpretation [...]
[2022-11-15] MEDS ORDERED: HYDROMORPHONE HCL 1 MG/ML INJ ONE (20:16)
[2022-11-15] MEDS ORDERED: HYDRALAZINE HCL 25 MG TABLET ONE (20:28)
[2022-11-15] MEDS ORDERED: carvediloL 6.25 MG TAB ONE ×2 (20:28→20:29)
--- NOTE | 2022-11-15 21:11 | RAD REPORT ---
EXAM DESCRIPTION: USExtrem Venous W Compress Bil11/15/2022 8:58 pm CLINICAL HISTORY: Leg swelling COMPARISON: 2021 FINDINGS: The common femoral, superficial femoral, greater saphenous, popliteal and posterior tibial veins bilaterally are compressible and demonstrate augmentation. Doppler demonstrates good flow. Grayscale, color and spectral analysis performed on all vessels IMPRESSION: No evidence of deep venous thrombosis involving either lower extremity.
--- NOTE | 2022-11-15 21:23 | RAD REPORT ---
EXAM DESCRIPTION: US - Lower Extremity Arterial Bilat - 11/15/2022 8:59 pm CLINICAL HISTORY: Leg pain/nonhealing wound/peripheral vascular disease COMPARISON: None FINDINGS: Right common femoral and superficial femoral demonstrate triphasic waveforms Fused right popliteal artery waveform biphasic diminished in amplitude. Right posterior tibial artery and right dorsalis pedis arterial waveforms are generally biphasic. Dorsalis pedis arterial waveform diminished in amplitude. The left common femoral, superficial femoral, ,and dorsalis pedis arterial waveforms are generally mo nophasic. No flow within the posterior tibial artery. Left popliteal arterial waveform biphasic Grayscale, color and spectral analysis performed on all vessels IMPRESSION: Mild mid and lower right lower extremity arterial disease Moderate diffuse left lower extremity arterial disease. No flow visualized within the left posterior tibial artery.
--- NOTE | 2022-11-15 21:26 | RAD REPORT ---
EXAM DESCRIPTION: Hawa Rea And Lat (2 Views)11/15/2022 9:09 pm CLINICAL HISTORY: Shortness of breath COMPARISON: 2021 FINDINGS: Mild bilateral interstitial lung opacities Heart is markedly enlarged IMPRESSION: Mild CHF
[2022-11-15 22:39] LABS: Absolute Lymphocytes (CBC) 1.1 K/uL (0.7-4.9); Hematocrit 35.5 % (36.0-45.0); Lymphocytes % 19.7 % (15.3-44.8); MCV 87.8 fL (80-100); MPV 8.7 fL (7.6-11.3); RBC Red Blood Cell Count 4.05 M/uL (3.86-4.86)
[2022-11-15 22:41] LABS: Protime INR 1.19
[2022-11-15 22:43] LABS: Anisocytosis 3+; Blood Morphology Comment NOTED (NOT SEEN); Platelet Estimate ADEQ; White Blood Cell Scan OK (OK)
[2022-11-15] MEDS ORDERED: SMZ./TMP. 800/160 MG TABLET ONE (23:03)
[2022-11-15 23:04] LABS: AST/SGOT 16 U/L (15-37); Albumin 2.6 g/dL (3.4-5.0); Alkaline Phosphatase 79 U/L (45-117); BUN Blood Urea Nitrogen 13 mg/dL (7-18); Bicarbonate 31 mEq/L (21-32); Bilirubin Direct 0.3 mg/dL (0-0.2); Bilirubin Total 0.5 mg/dL (0.2-1.0); Glomerular Filtration Rate 55 ml/min (=/>90); Glucose Level 120 mg/dL (74-106); Magnesium 1.4 mg/dL (1.6-2.4); NT PRO-BNP 9703 pg/mL (<125); Potassium 3.1 mEq/L (3.5-5.1); Protein, Total 7.2 g/dL (6.4-8.2); Sodium Level 138 mEq/L (136-145)
[2022-11-15 23:05] LABS: ALT/SGPT < 10 U/L (13-56)
[2022-11-15 23:06] LABS: Troponin High Sensitivity 210.4 pg/mL (<58.9)
[2022-11-15] MEDS ORDERED: POTASSIUM 25 MEQ EFFERV TAB ONE (23:39)
[2022-11-15] MEDS ORDERED: Magnesium Sulfate 2gm IVPB 2 G/50 ML BAG IV ONE (23:39)
--- NOTE | 2022-11-16 00:37 | EDPHYS ---
Physician Documentation [facility] Name: Mellisa Patterson Age: 67 yrs Sex: Female : 1955 Arrival Date: 11/15/2022 Time: 19:31 Bed 17 Private MD: ED Physician Alfred Conley HPI: 11/16 00:58 This 67 yrs old Black Female presents to ER via Ambulatory with complaints of Wound snw Check. 00:12 Patient presents to ED for recheck of: chronic wound to left lower leg. The patient has snw experienced similar episodes in the past. The patient has not recently seen a physician. pt takes lots of medications for multiple chronic illnesses. Historical: - Allergies: 11/15 20:03 insect venom; aa9 - PMHx: 20:03 Asthma; Atrial Fib; Bronchitis; CHF; Gout; Hypertension; venous insufficiency; wounds; aa9 - Immunization history:: Client reports having NOT received the Covid vaccine. - Social history:: Smoking status: Patient reports the use of cigarette tobacco products, smokes one-half pack cigarettes per day. ROS: 11/16 00:11 Constitutional: Negative for fever, chills, and weight loss, Eyes: Negative for injury, snw pain, redness, and discharge, ENT: Negative for injury, pain, and discharge, Neck: Negative for injury, pain, and swelling, Cardiovascular: Negative for chest pain, palpitations, and edema, Respiratory: Negative for shortness of breath, cough, wheezing, and pleuritic chest pain, Abdomen/GI: Negative for abdominal pain, nausea, vomiting, diarrhea, and constipation, Back: Negative for injury and pain, : Negative for injury, bleeding, discharge, and swelling, MS/Extremity: Negative for injury and deformity, Neuro: Negative for headache, weakness, numbness, tingling, and seizure. Skin: Positive for left lower leg with chronic wound, area tender today. Exam: 11/15 20:10 Constitutional: This is a well developed, well nourished patient who is awake, alert, snw and in no acute distress. Head/Face: Normocephalic, atraumatic. Eyes: Pupils equal round and reactive to light, extra-ocular motions intact. Lids and lashes normal. Conjunctiva and sclera are non-icteric and not injected. Cornea within normal limits. Periorbital areas with no swelling, redness, or edema. ENT: Nares patent. No nasal discharge, no septal abnormalities noted. Tympanic membranes are normal and external auditory canals are clear. Oropharynx with no redness, swelling, or masses, exudates, or evidence of obstruction, uvula midline. Mucous membranes moist. Neck: Trachea midline, no thyromegaly or masses palpated, and no cervical lymphadenopathy. Supple, full range of motion without nuchal rigidity, or vertebral point tenderness. No Meningismus. Chest/axilla: Normal chest wall appearance and motion. Nontender with no deformity. No lesions are appreciated. Abdomen/GI: Soft, non-tender, with normal bowel sounds. No distension or tympany. No guarding or rebound. No evidence of tenderness throughout. Back: No spinal tenderness. No costovertebral tenderness. Full range of motion. MS/ Extremity: Pulses equal, no cyanosis. Neurovascular intact. Full, normal range of motion. left lower ext twice the size of right, pt states this is normal for her. Wound to left ankle almost circumferencial, no new smell, discharge, pt states the only change in the recent past has been increase in pain. Left foot discolored, darkened, dry Neuro: Awake and alert, GCS 15, oriented to person, place, time, and situation. Cranial nerves II-XII grossly intact. Motor strength 5/5 in all extremities. Sensory grossly intact. Cerebellar exam normal. Normal gait. Psych: Awake, alert, with orientation to person, place and time. Behavior, mood, and affect are within normal limits. Cardiovascular: Rate: tachycardic, Rhythm: regular, Heart sounds: normal. Respiratory: the patient does not display signs of respiratory distress, Respirations: shallow respirations, Breath sounds: are clear throughout. Vital Signs: 20:00 BP 189 / 135; Pulse 110; Resp 20 S; Pulse Ox 100% on R/A; aa9 20:01 BP 208 / 128; Pulse 110; Resp 20 S; Temp 98.9(O); Pulse Ox 100% on R/A; Weight 117.93 aa9 kg (R); Height 5 ft. 7 in. ; Pain 8/10; 20:30 BP 176 / 119; Pulse 102; Resp 19 S; Pulse Ox 100% ; aa9 21:49 BP 163 / 115; Pulse 108; Resp 19; Pulse Ox 98% on R/A; aa9 22:34 BP 171 / 116; Pulse 101; Resp 19 S; Pulse Ox 100% ; aa9 22:52 BP 139 / 88; Pulse 81; Resp 18 S; Pulse Ox 99% on R/A; aa9 11/16 00:21 BP 145 / 90; Pulse 97; Resp 19; Pulse Ox 99% ; aa9 01:10 BP 128 / 90; Pulse 92; Resp 20; Temp 98.5; Pulse Ox 97% on R/A; aa9 11/15 20:01 Body Mass Index 40.72 (117.93 kg, 170.18 cm) aa9 20:01 Pain Scale: Adult aa9 MDM: 11/15 19:48 Patient medically screened. snw 11/16 00:14 Differential diagnosis: cellulitis, arterial occlusion, venous occlusion, CHF. Data snw reviewed: vital signs, nurses notes, lab test result(s), EKG, radiologic studies, ultrasound. Management of patient was discussed with the following: Dr. Acevedo agrees pt has chronic occlusion, chronic PAD. Pt's foot warm, posterior area with warmth, mild tenderness. I considered the following discharge prescriptions or medication management in the emergency department Medications were administered in the Emergency Department. See MAR. External Records Reviewed: Inpatient record: pt with chronically elevated Trop/BNP, hx of hypomagnesemia/hypokalemia. Care significantly affected by the following chronic conditions: Hypertension, Congestive Heart Failure, Obesity, Afib/flutter, PAD. Counseling: I had a detailed discussion with the patient and/or guardian regarding: the historical points, exam findings, and any diagnostic results supporting the discharge/admit diagnosis, the presence of at least one elevated blood pressure reading (>120/80) during this emergency department visit, lab results, radiology results, the need for outpatient follow up, for definitive care, vascular surgery, to return to the emergency department if symptoms worsen or persist or if there are any questions or concerns that arise at home. Response to treatment: the patient's symptoms have markedly improved after treatment. Special discussion: Based on the history and exam findings, there is no indication for further emergent testing or inpatient evaluation. I discussed with the patient/guardian the need to see the policy checker for further evaluation of the symptoms. I discussed with the patient/guardian the need to see the primary care provider for further evaluation of the symptoms. Vascular. 00:57 ED course: discussed need for PCP, Vascular surgeon and follow up. snw 11/15 22:09 Order name: Basic Metabolic Panel; Complete Time: 23:08 snw 11/15 22:09 Order name: CBC with Diff; Complete Time: 22:51 snw 11/15 22:09 Order name: LFT's; Complete Time: 23:08 snw 11/15 22:09 Order name: Magnesium; Complete Time: 23:08 snw 11/15 22:09 Order name: NT PRO-BNP; Complete Time: 23:08 snw 11/15 22:09 Order name: PT-INR; Complete Time: 22:43 snw 11/15 22:09 Order name: Troponin HS; Complete Time: 23:08 snw 11/15 22:44 Order name: CBC Smear Scan; Complete Time: 22:51 EDMS 11/15 19:57 Order name: US Lower Extremity Arterial Bilateral; Complete Time: 21:39 snw 11/15 19:57 Order name: US Extremity Venous W Compression Josafat; Complete Time: 21:14 snw 11/15 19:58 Order name: Chest Pa And Lat (2 Views) XRAY; Complete Time: 21:39 snw 11/15 22:09 Order name: EKG; Complete Time: 22:10 snw 11/15 22:09 Order name: Cardiac monitoring; Complete Time: 22:33 snw 11/15 22:09 Order name: EKG - Nurse/Tech; Complete Time: 22:33 snw 11/15 22:09 Order name: IV Saline Lock; Complete Time: 22:33 snw 11/15 22:09 Order name: Labs collected and sent; Complete Time: 22:33 snw 11/15 22:09 Order name: O2 Per Protocol; Complete Time: 22:33 snw 11/15 22:09 Order name: O2 Sat Monitoring; Complete Time: 22:33 snw Administered Medications: 11/15 20:19 Drug: HYDROmorphone IM 1 mg Route: IM; Site: left deltoid; aa9 20:45 Follow up: Response: No adverse reaction aa9 21:05 Drug: HydrALAZINE PO 50 mg Route: PO; aa9 22:10 Follow up: Response: No adverse reaction aa9 21:05 Drug: carvedilol PO 25 mg Route: PO; aa9 22:10 Follow up: Response: No adverse reaction aa9 23:05 Drug: Trimethoprim-Sulfamethoxazole PO (160 mg-800 mg (DS) 1 tablet Route: PO; aa9 23:55 Follow up: Response: No adverse reaction aa9 23:40 Drug: Magnesium Sulfate IVPB 2 grams Route: IVPB; Infused Over: 2 hrs; Site: left aa9 antecubital; 11/16 01:10 Follow up: Response: No adverse reaction; IV Status: Completed infusion; IV Intake: aa9 100ml 11/15 23:53 Drug: Potassium PO Effervescent Tablet 50 mEq Route: PO; aa9 11/16 00:04 Follow up: Response: No adverse reaction aa9 Disposition: 02:45 Co-signature as Attending Physician, Alfred Conley MD I agree with the assessment sp4 and plan of care. I reviewed the patient's care provided by Advanced Practice Provider \T\ agree w/ the diagnosis \T\ care plan. I personally saw the pt \T\ performed a substantive portion of the visit, incldng all aspects of the (History/Exam/Medical Decision Making). Disposition Summary: 11/16/22 00:36 Discharge Ordered Location: Home snw Condition: Stable snw Diagnosis - Cellulitis of left lower limb snw - Other forms of chronic ischemic heart disease snw - Unspecified systolic (congestive) heart failure snw - Cardiomegaly snw - Peripheral vascular disease, unspecified snw Followup: snw - With: Emergency Department - When: As needed - Reason: Worsening of condition Followup: snw - With: Private Physician - When: Tomorrow - Reason: Recheck today's complaints, Continuance of care, Re-evaluation by your physician Discharge Instructions: - Discharge Summary Sheet snw - Cellulitis, Adult snw - Heart Failure, Diagnosis snw - Peripheral Vascular Disease snw - Angiogram snw Forms: - Medication Reconciliation Form snw - Thank You Letter snw - Antibiotic Education snw - Prescription Opioid Use snw Prescriptions: - amlodipine 10 mg Oral tablet - take 1 tablet by ORAL route daily; 90 tablet; Refills: 0, Product Selection snw Permitted - budesonide-formoterol 160-4.5 mcg/actuation Inhalation HFA Aerosol Inhaler - inhale 2 puff by INHALATION route 2 times per day; 1 Unspecified; Refills: 0, snw Product Selection Permitted - cholecalciferol (vitamin D3) 25 mcg (1,000 unit) Oral capsule - take 1 capsule by ORAL route daily; 90 capsule; Refills: 0, Product Selection snw Permitted - mupirocin 2 % Topical ointment - apply 1 application by TOPICAL route 2 times per day; 50 gram; Refills: 0, snw Product Selection Permitted - Ferrous Sulfate 325 mg (65 mg Iron) Oral Tablet - take 1 tablet by ORAL route every 8 hours; 90 tablet; Refills: 0, Product snw Selection Permitted - Folic Acid 1 mg Oral Tablet - take 1 tablet by ORAL route once daily; 90 tablet; Refills: 0, Product snw Selection Permitted - Spironolactone 25 mg Oral Tablet - take 25 milligram by ORAL route once daily; 90 tablet; Refills: 0, Product snw Selection Permitted - Tramadol 50 mg Oral Tablet - take 1 tablet by ORAL route every 8 hours as needed; 12 tablet; Refills: 0, snw Product Selection Permitted - Bactrim DS 800-160 mg Oral Tablet - take 1 tablet by ORAL route every 12 hours for 14 days; 28 tablet; Refills: 0, snw Product Selection Permitted Signatures: Dispatcher [employer] Jaylin Schultz FNP-C FLUX TUBE ATTENDANT-Csnw Mirna Xiong RN RN aa9 Alfred Conley MD MD sp4
--- NOTE | 2022-11-16 00:37 | ER ---
Nurse's Notes [facility] Name: Mellisa Patterson Age: 67 yrs Sex: Female : 1955 Arrival Date: 11/15/2022 Time: 19:31 Bed 17 Private MD: Diagnosis: Cellulitis of left lower limb;Other forms of chronic ischemic heart disease;Unspecified systolic (congestive) heart failure;Cardiomegaly;Peripheral vascular disease, unspecified Presentation: 11/15 20:01 Chief complaint: Patient states: I have a venous wound on my left lower leg, I have had aa9 it for 7 years, it is hurting now, its swollen and bleeding. it was last checked in October. Coronavirus screen: Vaccine status: Patient reports being unvaccinated. Ebola Screen: No symptoms or risks identified at this time. Initial Sepsis Screen: Does the patient meet any 2 criteria? HR > 90 bpm. No. Patient's initial sepsis screen is negative. Does the patient have a suspected source of infection? No. Patient's initial sepsis screen is negative. Risk Assessment: Do you want to hurt yourself or someone else? Patient reports no desire to harm self or others. Onset of symptoms was November 15, 2022. 20:01 Method Of Arrival: Ambulatory aa9 20:01 Acuity: JESI 3 aa9 Triage Assessment: 20:04 General: Appears uncomfortable, obese, Behavior is calm, cooperative. Pain: Complains aa9 of pain in left rodriguez and anterior aspect of left ankle Pain currently is 8 out of 10 on a pain scale. Aggravated by increased activity, Noted to be resistant to movement. Neuro: Level of Consciousness is awake, alert, obeys commands, Oriented to person, place, time, situation. Cardiovascular: Patient's skin is warm and dry. Respiratory: Airway is patent Respiratory effort is even, unlabored. GI: Abdomen is obese. Derm: Wound noted left lateral ankle, left Achilles, left medial ankle and anterior aspect of left ankle Wound is venous wound. Musculoskeletal: Swelling present in lateral aspect of left calf, left lateral ankle, lateral aspect of left foot, left calf, left Achilles, left heel, medial aspect of left calf, left medial ankle, medial aspect of left foot, left rodriguez, anterior aspect of left ankle and dorsum of left foot. Historical: - Allergies: 20:03 insect venom; aa9 - PMHx: 20:03 Asthma; Atrial Fib; Bronchitis; CHF; Gout; Hypertension; venous insufficiency; wounds; aa9 - Immunization history:: Client reports having NOT received the Covid vaccine. - Social history:: Smoking status: Patient reports the use of cigarette tobacco products, smokes one-half pack cigarettes per day. Screenin:05 [facility] ED Fall Risk Assessment (Adult) History of falling in the last 3 months, aa9 including since admission No falls in past 3 months (0 pts) Confusion or Disorientation No (0 pts) Intoxicated or Sedated No (0 pts) Impaired Gait No (0 pts) Mobility Assist Device Used No (0 pt) Altered Elimination No (0 pt) Score/Fall Risk Level 0 - 2 = Low Risk Oriented to surroundings, Maintained a safe environment, Educated pt \T\ family on fall prevention, incl call for assistance when getting out of bed. Abuse screen: Denies threats or abuse. Denies injuries from another. Nutritional screening: No deficits noted. Tuberculosis screening: No symptoms or risk factors identified. Assessment: 20:20 Reassessment: Patient appears in no apparent distress at this time. US at bedside. aa9 21:50 Reassessment: Patient appears in no apparent distress at this time. Patient and/or aa9 family updated on plan of care and expected duration. Pain level reassessed. Patient is alert, oriented x 3, equal unlabored respirations, skin warm/dry/pink. Patient states symptoms have improved. 21:50 Reassessment: Patient appears in no apparent distress at this time. Cooney at bedside. aa9 23:20 Reassessment: Patient appears in no apparent distress at this time. Yael HILL at aa9 bedside. 0508 00:37 Reassessment: Patient appears in no apparent distress at this time. Patient and/or aa9 family updated on plan of care and expected duration. Pain level reassessed. Patient is alert, oriented x 3, equal unlabored respirations, skin warm/dry/pink. discharge pending magnesium sulfate infusion completion. 01:11 Reassessment: Patient appears in no apparent distress at this time. Patient and/or aa9 family updated on plan of care and expected duration. Pain level reassessed. Patient is alert, oriented x 3, equal unlabored respirations, skin warm/dry/pink. Patient states symptoms have improved. Vital Signs: 11/15 20:00 BP 189 / 135; Pulse 110; Resp 20 S; Pulse Ox 100% on R/A; aa9 20:01 BP 208 / 128; Pulse 110; Resp 20 S; Temp 98.9(O); Pulse Ox 100% on R/A; Weight 117.93 aa9 kg (R); Height 5 ft. 7 in. ; Pain 8/10; 20:30 BP 176 / 119; Pulse 102; Resp 19 S; Pulse Ox 100% ; aa9 21:49 BP 163 / 115; Pulse 108; Resp 19; Pulse Ox 98% on R/A; aa9 22:34 BP 171 / 116; Pulse 101; Resp 19 S; Pulse Ox 100% ; aa9 22:52 BP 139 / 88; Pulse 81; Resp 18 S; Pulse Ox 99% on R/A; aa9 11/16 00:21 BP 145 / 90; Pulse 97; Resp 19; Pulse Ox 99% ; aa9 01:10 BP 128 / 90; Pulse 92; Resp 20; Temp 98.5; Pulse Ox 97% on R/A; aa9 11/15 20:01 Body Mass Index 40.72 (117.93 kg, 170.18 cm) aa9 20:01 Pain Scale: Adult aa9 ED Course: 11/15 19:38 Patient arrived in ED. ja2 19:46 Jaylin Cooney FNP-C is PHCP. snw 19:46 Alfred Conley MD is Attending Physician. snw 20:03 Triage completed. aa9 20:06 Arm band placed on. aa9 20:06 Patient has correct armband on for positive identification. Bed in low position. Side aa9 rails up X 1. Pulse ox on. NIBP on. 20:07 Mirna Xiong, RN is Primary Nurse. aa9 21:00 US Extremity Venous W Compression Josafat In Process Unspecified. EDMS 21:01 US Lower Extremity Arterial Bilateral In Process Unspecified. EDMS 21:11 Chest Pa And Lat (2 Views) XRAY In Process Unspecified. EDMS 21:57 Warm blanket given. Head of bed elevated. Diet: Patient given snack. Patient given aa9 water. Tolerated well. 22:30 Inserted saline lock: 20 gauge in left antecubital area, using aseptic technique. Blood aa9 collected. 22:33 Basic Metabolic Panel Sent. aa9 22:33 CBC with Diff Sent. aa9 22:33 LFT's Sent. aa9 22:33 Magnesium Sent. aa9 22:33 NT PRO-BNP Sent. aa9 22:33 PT-INR Sent. aa9 22:33 Troponin HS Sent. aa9 22:51 Dressings: Kerlix X 1; lower left leg Vaseline gauze X 1; lower left leg. aa9 23:05 Family accompanied patient. aa9 11/16 01:10 No provider procedures requiring assistance completed. IV discontinued, intact, aa9 bleeding controlled, No redness/swelling at site. Pressure dressing applied. Administered Medications: 11/15 20:19 Drug: HYDROmorphone IM 1 mg Route: IM; Site: left deltoid; aa9 20:45 Follow up: Response: No adverse reaction aa9 21:05 Drug: HydrALAZINE PO 50 mg Route: PO; aa9 22:10 Follow up: Response: No adverse reaction aa9 21:05 Drug: carvedilol PO 25 mg Route: PO; aa9 22:10 Follow up: Response: No adverse reaction aa9 23:05 Drug: Trimethoprim-Sulfamethoxazole PO (160 mg-800 mg (DS) 1 tablet Route: PO; aa9 23:55 Follow up: Response: No adverse reaction aa9 23:40 Drug: Magnesium Sulfate IVPB 2 grams Route: IVPB; Infused Over: 2 hrs; Site: left aa9 antecubital; 11/16 01:10 Follow up: Response: No adverse reaction; IV Status: Completed infusion; IV Intake: aa9 100ml 11/15 23:53 Drug: Potassium PO Effervescent Tablet 50 mEq Route: PO; aa9 11/16 00:04 Follow up: Response: No adverse reaction aa9 Medication: 01:11 VIS not applicable for this client. aa9 Intake: 01:10 IV: 100ml; Total: 100ml. aa9 Outcome: 00:36 Discharge ordered by MD. bobo 01:11 Discharged to home ambulatory. aa9 01:11 Condition: stable 01:11 Discharge instructions given to patient, Instructed on discharge instructions, follow up and referral plans. medication usage, Demonstrated understanding of instructions, follow-up care, medications, Prescriptions given X 9 01:12 Patient left the ED. aa9 Signatures: Dispatcher [employer] Jaylin Schultz, PLASTIC BOAT BUFFER-C PLASTIC BOAT BUFFER-Csnw Aleida Thayer Aylin, RN RN aa9 Corrections: (The following items were deleted from the chart) 01:11 01:11 Discharge instructions given to patient, Instructed on discharge instructions, aa9 follow up and referral plans. medication usage, Demonstrated understanding of instructions, follow-up care, medications, Prescriptions given X aa9
[2022-11-16 01:29] VITALS: BP 128/90; TEMP 98.5; O2SAT 97
--- NOTE | 2022-11-17 07:55 | EKG ---
Test Date: 2022-11-15 Test Time: 22:18:00 Mission Systems Engineer: ROSIE MEASUREMENT RESULTS: Intervals: Rate: 97 MS: QRSD: 104 QT: 420 QTc: 533 [place]: P: MS: QRS: -25 T: 138 INTERPRETIVE STATEMENTS: Atrial flutter with variable AV block ST & T wave abnormality, consider lateral ischemia Prolonged QT Abnormal ECG Compared to ECG 03/10/2022 17:11:52 ST (T wave) deviation now present Possible ischemia now present Sinus bradycardia no longer present First degree AV block no longer present Electronically Signed On 11-17-22 07:53:12 CDT by Hernesto Varghese
--- NOTE | 2022-11-17 07:55 | EKG ---
Test Date: 2022-11-15 Test Time: 22:18:31 Metal Lather: ROSIE MEASUREMENT RESULTS: Intervals: Rate: 87 [place]: QRSD: 102 QT: 480 QTc: 577 [place]: P: [place]: QRS: -30 T: 116 INTERPRETIVE STATEMENTS: Atrial flutter with variable AV block Left axis deviation Possible Anterior infarct, age undetermined Prolonged QT Abnormal ECG Compared to ECG 03/10/2022 17:11:52 Left-axis deviation now present Myocardial infarct finding now present Sinus bradycardia no longer present First degree AV block no longer present Electronically Signed On 11-17-22 07:53:10 CDT by Hernesto Varghese
== END 2022-11-16 01:12 | disposition home or self-care (01) ==
LOC: ER 19:31
DX: L03.116 Cellulitis of left lower limb (principal); I73.9 Peripheral vascular disease, unspecified; I25.89 Other forms of chronic ischemic heart disease; I50.20 Unspecified systolic (congestive) heart failure; I51.7 Cardiomegaly; I10 Essential (primary) hypertension; F17.210 Nicotine dependence, cigarettes, uncomplicated; Z91.038 Other insect allergy status
CPT/HCPCS: 96365; 93005 ×2; 85025; 80048; 36415; 83735; 85610; 80076; 84484; 83880; 71046; 93925; 93970; 96372; 99285; J3475; J1170

== ENCOUNTER 2023-08-04 17:24 | Inpatient (IN) | payer OTHER, SELFPAY ==
[2023-08-04 18:01] LABS: Protime INR 2.03
[2023-08-04 18:04] LABS: Absolute Lymphocytes (CBC) 0.4 K/uL (0.7-4.9); Hematocrit 14.8 % (36.0-45.0); Lymphocytes % 19.9 % (15.3-44.8); MPV 8.5 fL (7.6-11.3); Platelets 82 thou/uL (152-406); RBC Red Blood Cell Count 1.48 M/uL (3.86-4.86)
[2023-08-04] MEDS ORDERED: PANTOPRAZOLE 40 MG INJ ONE ×2 (18:14→18:18)
[2023-08-04] MEDS ORDERED: NA CHLORIDE 0.9% 250 ML ONE (18:18)
[2023-08-04 18:20] LABS: Potassium 3.6 mEq/L (3.5-5.1); Troponin High Sensitivity 46.6 pg/mL (<58.9)
[2023-08-04 18:21] LABS: Magnesium 0.9 mg/dL (1.6-2.4)
--- NOTE | 2023-08-04 18:28 | RAD REPORT ---
EXAM DESCRIPTION: RAD - Chest Single View - 08/04/2023 6:23 pm CLINICAL HISTORY: PALPITATIONS Chest pain. COMPARISON: Chest Pa And Lat (2 Views) dated 11/15/2022; Chest Single View dated 03/10/2022; Chest Sing le View dated 08/10/2019; Chest Single View dated 05/29/2019 FINDINGS: Portable technique limits examination quality. Mild to moderate pulmonary edema. The heart is significantly enlarged. No displaced fractures. IMPRESSION: Mild to moderate CHF.
[2023-08-04] MEDS ORDERED: NA CHLORIDE 0.9% 500 ML ONE ×3 (18:29→23:34)
[2023-08-04] MEDS ORDERED: NOREPINEPHRINE BITARTRATE/D5W 4 MG/250 ML BAG IV ONE (18:48)
[2023-08-04] MEDS ORDERED: PROTHROMBIN COMPLEX CONCENTRATE (HUMAN) 500 UNIT VIAL IV ONE (19:00)
[2023-08-04] MEDS: PANTOPRAZOLE INJ 80 MG in NA CHLORIDE 0.9% 250 ML IV SCH (19:00)
[2023-08-04] MEDS ORDERED: NA CHLORIDE 0.9% 100 ML ONE (19:24)
[2023-08-04 19:51] LABS: Blood Morphology Comment NOTED (NOT SEEN); Hypochromasia 2+; Platelet Estimate DECR
--- NOTE | 2023-08-04 20:16 | ER ---
Nurse's Notes [facility] Name: Mellisa Patterson Age: 68 yrs Sex: Female : 1955 Arrival Date: 08/04/2023 Time: 17:24 Bed 3 Private MD: Diagnosis: GI Bleed/ Gastrointestinal hemorrhage, unspecified;Anemia, unspecified;Hypovolemic shock Presentation: 08/04 17:48 Chief complaint: EMS states: called for decreased LOC and bradycardia, low bp. ko1 Coronavirus screen: At this time, the client does not indicate any symptoms associated with coronavirus-19. Ebola Screen: No symptoms or risks identified at this time. Initial Sepsis Screen: Does the patient meet any 2 criteria? No. Patient's initial sepsis screen is negative. Does the patient have a suspected source of infection? No. Patient's initial sepsis screen is negative. Risk Assessment: Do you want to hurt yourself or someone else? Patient reports no desire to harm self or others. Onset of symptoms was August 04, 2023. 17:48 Method Of Arrival: EMS: [facility] ko1 17:48 Acuity: JESI 2 ko1 Triage Assessment: 17:55 General: Appears in no apparent distress. comfortable, Behavior is calm, cooperative, ko1 appropriate for age. Pain: Denies pain. Historical: - Allergies: 17:55 insect venom; ko1 - PMHx: 17:55 Asthma; Atrial Fib; Bronchitis; CHF; Gout; Hypertension; venous insufficiency; wounds; ko1 - Immunization history:: Adult Immunizations up to date. - Social history:: Smoking status: Patient denies any tobacco usage or history of. - Family history:: not pertinent. - Hospitalizations: : No recent hospitalization is reported. Screenin:59 [facility] ED Fall Risk Assessment (Adult) History of falling in the last 3 months, ko1 including since admission No falls in past 3 months (0 pts) Confusion or Disorientation Yes (5 pts) Intoxicated or Sedated No (0 pts) Impaired Gait Yes (1 pt) Mobility Assist Device Used Yes (1 pt) Altered Elimination No (0 pt) Score/Fall Risk Level 3 or more points = High Risk Oriented to surroundings, Maintained a safe environment, Educated pt \T\ family on fall prevention, incl call for assistance when getting out of bed, Assessed \T\ reinforced patient's understanding of fall precautions, Provided non-skid footwear, Hourly rounding (assess needs \T\ fall precautionary measures) done, Used ambulatory aids as needed (educated on \T\ assisted with), Used gait belt as appropriate Implemented a Fall Risk Plan of Care, Apply high fall risk patient identification: yellow non skid footwear/ fall signage, Remained w/in arm's length of patient and in sight while toileting, Offered frequent toileting (1:1 observation), Remained with patient while ambulating, Utilized family, sitter, or virtual statistical modeler as indicated. Abuse screen: Denies threats or abuse. Denies injuries from another. Nutritional screening: No deficits noted. Tuberculosis screening: No symptoms or risk factors identified. Assessment: 17:59 General: Appears in no apparent distress. ill, obese, Behavior is calm, cooperative. ko1 Pain: Denies pain. Neuro: Level of Consciousness is lethargic. Cardiovascular: Patient's skin is warm and dry. Rhythm is atrial fibrillation. Respiratory: No deficits noted. GI: No deficits noted. : No deficits noted. EENT: No deficits noted. Derm:. Vital Signs: 17:48 BP 78 / 53; Pulse 45; Resp 14; Temp 98; Pulse Ox 95% on R/A; ko1 17:59 BP 82 / 46; Pulse 52; Resp 16; Pulse Ox 97% on R/A; ko1 18:45 BP 78 / 54; Pulse 43; Resp 18; Pulse Ox 98% on R/A; tm6 19:00 BP 100 / 66; Pulse 46; Pulse Ox 98% on R/A; tm6 19:05 Weight 116.57 kg; kmf 19:30 BP 83 / 57; Pulse 57; Pulse Ox 96% on R/A; tm6 19:35 BP 100 / 66; rn 19:45 BP 102 / 71; Pulse 52; Resp 17; Pulse Ox 98% on R/A; tm6 19:50 BP 102 / 71; Pulse 56; Resp 18; Temp 96; Pulse Ox 98% on R/A; tm6 19:55 BP 98 / 73; Pulse 65; Resp 19; Temp 95.8(TE); Pulse Ox 100% on R/A; tm6 20:00 BP 102 / 72; Pulse 60; Resp 20; Temp 95.8(TE); Pulse Ox 99% on R/A; tm6 ED Course: 17:26 Patient arrived in ED. ko1 17:31 Dwight Oneal MD is Attending Physician. rn 17:32 Laureen Lozoya, JOSE LUIS is Primary Nurse. ko1 17:47 Basic Metabolic Panel Sent. ko1 17:47 CBC with Diff Sent. ko1 17:47 Magnesium Sent. ko1 17:47 NT PRO-BNP Sent. ko1 17:48 PT-INR Sent. ko1 17:48 Troponin HS Sent. ko1 17:55 Triage completed. ko1 17:55 Arm band placed on right wrist. Patient placed in an exam room, on a stretcher, on ko1 playground monitor, on pulse oximetry, Patient notified of wait time. 17:59 Maintain EMS IV. Dressing intact. Good blood return noted. Site clean \T\ dry. Gauge \T\ ko 1 site: 20 left FA. 17:59 Patient has correct armband on for positive identification. Bed in low position. Call ko1 light in reach. Side rails up X2. Client placed on continuous cardiac and pulse oximetry monitoring. NIBP monitoring applied. panel monitor on. Door closed. Noise minimized. Lights dimmed. Warm blanket given. 18:20 Inserted saline lock: 20 gauge in right hand, using aseptic technique. Blood collected. nj1 18:22 Notified ED physician of a critical lab result(s). Magnesium .9. ll1 18:25 XRAY Chest (1 view) In Process Unspecified. EDMS 18:27 Bb Add On Sent. ko1 20:15 Rony Chandra MD is Hospitalizing Provider. rn 21:00 No provider procedures requiring assistance completed. Patient admitted, IV remains in tm6 place. 21:00 Provided Education on: Blood Transfusion. tm6 Administered Medications: 08/05 02:49 Discontinued: norepinephrine0.1 mcg/kg/min IV at calculated rate See Administration tm6 Instructions; (Standard concentration 4 mg / 250 mL D5W); Recommended max rate 3 mcg/kg/min; Titrate 0.05 mcg/kg/min as often as every 5 minutes to achieve goal (see titration policy); Goal parameter MAP greater than 65 mmHg. 08/04 17:47 Drug: NS 0.9% IV 500 ml IV at bolus once Route: IV; Rate: bolus; Site: left forearm; ko1 18:15 Drug: Pantoprazole IVP 40 mg IVP once Route: IVP; Site: left forearm; ko1 18:26 Drug: Pantoprazole IV 8 mg/hr IV at 25 ml/hr continuous; (Standard dilution is 80 mg in ko1 250 mL NS) Route: IV; Rate: 25 ml/hr; Site: left forearm; 18:27 Drug: NS 0.9% IV 500 ml IV at bolus once Route: IV; Rate: bolus; Site: left forearm; ko1 19:13 Drug: Norepinephrine IV 0.1 mcg/kg/min IV at calculated rate See Administration tm6 Instructions; (Standard concentration 4 mg / 250 mL D5W); Recommended max rate 3 mcg/kg/min; Titrate 0.05 mcg/kg/min as often as every 5 minutes to achieve goal (see titration policy); Goal parameter MAP greater than 65 mmHg. Route: IV; Rate: calculated rate; Site: right femoral; 08/05 00:42 Follow up: Rate change 5 calculated rate tm6 00:54 Follow up: Rate change 3 calculated rate tm6 08/04 19:26 Drug: Kcentra IV 1,000 unit 1,000 unit 2000 units IV at calculated rate once Route: IV; tm6 Rate: calculated rate; Site: right femoral; Medication: 21:00 VIS not applicable for this client. tm6 Outcome: 20:15 Decision to Hospitalize by Provider. rn 21:00 Admitted to ER Hold. Please see [facility] for further documentation. tm6 21:00 Condition: unchanged 21:00 Instructed on the need for admit, 08/05 12:59 Admitted to OR accompanied by nurse, via stretcherchristiane 13:02 Patient left the ED. ko1 Signatures: Dispatcher [employer] EDMS Dwight Oneal MD MD rn Lewis, Lynsay, RN RN ll1 Laureen Lozoya RN RN ko1 Lora Han RN RN nj1 Forrester, Kelsey Maroul kmf Masterson, Tawney, RN RN tm6 Corrections: (The following items were deleted from the chart) 08/04 20:12 20:11 BP 102 / 72; Pulse 60bpm; Resp 20bpm; Pulse Ox 99% RA; Temp 95.8F Temporal; tm6 tm6
--- NOTE | 2023-08-04 20:16 | EDPHYS ---
Physician Documentation [facility] Name: Mellisa Patterson Age: 68 yrs Sex: Female : 1955 Arrival Date: 08/04/2023 Time: 17:24 Bed 3 Private MD: ED Physician Dwight Oneal HPI: 08/04 17:45 This 68 yrs old Black Female presents to ER via Unassigned with complaints of rn lightheaded, near syncope. 17:45 The patient has experienced near-syncope. Onset: The symptoms/episode began/occurred rn just prior to arrival. Duration: This was a single episode. Associated injury: The patient did not suffer any apparent associated injury. Current symptoms: Lightheaded. It is unknown whether or not the patient has had similar symptoms in the past. 17:46 Per EMS patient was at bank and got lightheaded and had near syncopal episode. Did not rn lose consciousness completely. No trauma sustained. Patient reports has a history of atrial fibrillation, takes medication, supposed to get an ablation in the near future but unknown when. Patient denies being told in the past that she has bradycardic episodes. Denies any chest pain or shortness of breath. No changes in medication recently. Patient denies taking extra dose of her blood pressure or rate control medication.. Historical: - Allergies: 17:55 insect venom; ko1 - PMHx: 17:55 Asthma; Atrial Fib; Bronchitis; CHF; Gout; Hypertension; venous insufficiency; wounds; ko1 - Immunization history:: Adult Immunizations up to date. - Social history:: Smoking status: Patient denies any tobacco usage or history of. - Family history:: not pertinent. - Hospitalizations: : No recent hospitalization is reported. ROS: 17:46 Constitutional: Negative for fever, chills, and weight loss, Neck: Negative for injury, rn pain, and swelling, Cardiovascular: Positive for irregular heartbeat and atrial fibrillation. Negative for chest pain Respiratory: Negative for shortness of breath, cough, wheezing, and pleuritic chest pain, Abdomen/GI: Negative for abdominal pain, nausea, vomiting, diarrhea, and constipation, MS/Extremity: Negative for injury and deformity, Skin: Negative for injury, rash, and discoloration, Neuro: Positive for lightheadedness and dizziness Exam: 17:46 Constitutional: This is a well developed, well nourished patient who is awake, alert, rn and in no acute distress. Head/Face: Normocephalic, atraumatic. ENT: Dry mucous membranes, no stridor Cardiovascular: Bradycardic, irregular. No pulse deficits Respiratory: Speaking full sentences, unlabored. No retractions Abdomen/GI: Soft, non-tender Skin: Warm, dry Neuro: Awake and alert, GCS 15, oriented to person, place, time, and situation. Cranial nerves II-XII grossly intact. Motor strength 4/5 in all extremities. Sensory grossly intact. Vital Signs: 17:48 BP 78 / 53; Pulse 45; Resp 14; Temp 98; Pulse Ox 95% on R/A; ko1 17:59 BP 82 / 46; Pulse 52; Resp 16; Pulse Ox 97% on R/A; ko1 18:45 BP 78 / 54; Pulse 43; Resp 18; Pulse Ox 98% on R/A; tm6 19:00 BP 100 / 66; Pulse 46; Pulse Ox 98% on R/A; tm6 19:05 Weight 116.57 kg; kmf 19:30 BP 83 / 57; Pulse 57; Pulse Ox 96% on R/A; tm6 19:35 BP 100 / 66; rn 19:45 BP 102 / 71; Pulse 52; Resp 17; Pulse Ox 98% on R/A; tm6 19:50 BP 102 / 71; Pulse 56; Resp 18; Temp 96; Pulse Ox 98% on R/A; tm6 19:55 BP 98 / 73; Pulse 65; Resp 19; Temp 95.8(TE); Pulse Ox 100% on R/A; tm6 20:00 BP 102 / 72; Pulse 60; Resp 20; Temp 95.8(TE); Pulse Ox 99% on R/A; tm6 Procedures: 18:57 Central Line: the site was prepped with Betadine, in sterile fashion, a triple lumen rn catheter was inserted, in the right femoral vein, in 1 attempts. placement was verified, by blood return, the site was dressed with Tegaderm, using sterile technique, the patient tolerated the procedure, well. MDM: 17:31 Patient medically screened. rn 18:20 ED course: GEN with low hemoglobin of 4. Patient states has been having dark black rn stool for the last week. Patient states he takes Xarelto and Plavix. No PCC's at this hospital. Will start blood and platelet transfusion. 18:34 ED course: Discussed case with Dr. Santillan, once blood started and patient resuscitated. rn States high risk patient and prefers transfer out if possible. Told them patient is unstable for transfer at this time, blood ordered, will update with further information. 18:59 ED course: Central line placed, right femoral for initiation of pressor support given rn congestive heart failure status and concern for volume overload given blood transfusion ordered and Protonix drip in addition to fluids given already.. 19:27 ED course: Patient started on Levophed, blood pressure improving, blood almost ready to rn be given. Kcentra almost ready to be given from pharmacy. No ICU bed available here will initiate transfer for higher level of care.. 19:36 ED course: Initiated transfer to [facility] but then patient declined transfer. Patient rn refuses transfer and understands that we do not have ICU beds. Will notify Dr. Santillan. 20:11 ED course: Consulted with Dr. Santillan again, vitals improving, patient refuses transfer, internal wholesaler to [facility] canceled, improving vital signs and blood started. Dr. Santillan is on his way to evaluate patient in ER.. 20:11 Differential Diagnosis: cardiac arrhythmia, GI bleed, idiopathic syncope. Data rn reviewed: vital signs, nurses notes, lab test result(s), EKG, radiologic studies, plain films, and as a result, I will admit patient. Consideration of Admission/Observation Patient was admitted/placed on observation. Escalation of care including admission/observation considered. Management of patient was discussed with the following: Hospitalist: . I considered the following discharge prescriptions or medication management in the emergency department Medications were administered in the Emergency Department. See MAR. Counseling: I had a detailed discussion with the patient and/or guardian regarding the historical points, exam findings, and any diagnostic results supporting the discharge/admit diagnosis, lab results, radiology results, the need for further work-up and treatment in the hospital. ED course: I personally spent 35 minutes engaged in work directly related to the individual patient's care. This does not include any time spent performing procedures. The patient has been deemed critically ill because of critical level hemoglobin, on anticoagulants, hypotension and hypovolemic shock. Multiple consultations with GI Dr. Santillan as well as hospitalist.. 08/04 17:31 Order name: Basic Metabolic Panel; Complete Time: 05:26 rn 08/04 17:31 Order name: CBC with Diff; Complete Time: 05:26 rn 08/04 17:31 Order name: Magnesium; Complete Time: 05:26 rn 08/04 17:31 Order name: NT PRO-BNP; Complete Time: 05: rn 08/04 17:31 Order name: PT-INR; Complete Time: 18:13 rn 08/04 17:31 Order name: Troponin HS; Complete Time: 05: rn 08/04 18:12 Order name: Type And Screen rn 08/04 18:14 Order name: Bb Add On bd 08/04 18:27 Order name: Bb Add On bd 08/04 18:52 Order name: Packed RBC Leukored EDIN 08/04 19:40 Order name: ABO/RH no charge; Complete Time: 05: EDMS 08/04 19:52 Order name: Manual Differential; Complete Time: 05: EDIN 08/04 20:18 Order name: Transferrin Sat/Iron Binding; Complete Time: 05: EDMS 08/04 20:18 Order name: Ferritin; Complete Time: 05: EDMS 08/04 20:18 Order name: Folic Acid, (Folate); Complete Time: 05: EDMS 08/04 20:18 Order name: Vitamin B12 Level; Complete Time: 05:26 EDMS 08/04 20:29 Order name: Urinalysis w/ reflexes EDIN 08/04 20:29 Order name: Comprehensive Metabolic Panel EDIN 08/04 20:29 Order name: Comprehensive Metabolic Panel EDIN 08/04 20:29 Order name: Magnesium EDMS 08/04 20:29 Order name: Magnesium EDMS 08/04 20:29 Order name: Phosphorus EDMS 08/04 20:29 Order name: Phosphorus EDMS 08/04 20:29 Order name: Protime (+INR) EDMS 08/04 20:29 Order name: Protime (+INR); Complete Time: 05:26 EDMS 08/04 20:29 Order name: Troponin High Sensitivity EDMS 08/04 20:29 Order name: Troponin High Sensitivity EDMS 08/05 05:06 Order name: CBC with Automated Diff; Complete Time: 05: EDMS 08/04 17:31 Order name: XRAY Chest (1 view); Complete Time: 18:29 rn 08/04 17:31 Order name: EKG; Complete Time: 17:32 rn 08/04 17:31 Order name: Cardiac monitoring; Complete Time: 17:32 rn 08/04 17:31 Order name: EKG - Nurse/Tech; Complete Time: 17:32 rn 08/04 17:31 Order name: IV Saline Lock; Complete Time: 17:32 rn 08/04 17:31 Order name: Labs collected and sent; Complete Time: 17:47 rn 08/04 17:31 Order name: O2 Per Protocol; Complete Time: 17:32 rn 08/04 17:31 Order name: O2 Sat Monitoring; Complete Time: 17:32 rn Administered Medications: 08/05 02:49 Discontinued: norepinephrine0.1 mcg/kg/min IV at calculated rate See Administration tm6 Instructions; (Standard concentration 4 mg / 250 mL D5W); Recommended max rate 3 mcg/kg/min; Titrate 0.05 mcg/kg/min as often as every 5 minutes to achieve goal (see titration policy); Goal parameter MAP greater than 65 mmHg. 08/04 17:47 Drug: NS 0.9% IV 500 ml IV at bolus once Route: IV; Rate: bolus; Site: left forearm; ko1 18:15 Drug: Pantoprazole IVP 40 mg IVP once Route: IVP; Site: left forearm; ko1 18:26 Drug: Pantoprazole IV 8 mg/hr IV at 25 ml/hr continuous; (Standard dilution is 80 mg in ko1 250 mL NS) Route: IV; Rate: 25 ml/hr; Site: left forearm; 18:27 Drug: NS 0.9% IV 500 ml IV at bolus once Route: IV; Rate: bolus; Site: left forearm; ko1 19:13 Drug: Norepinephrine IV 0.1 mcg/kg/min IV at calculated rate See Administration tm6 Instructions; (Standard concentration 4 mg / 250 mL D5W); Recommended max rate 3 mcg/kg/min; Titrate 0.05 mcg/kg/min as often as every 5 minutes to achieve goal (see titration policy); Goal parameter MAP greater than 65 mmHg. Route: IV; Rate: calculated rate; Site: right femoral; 08/05 00:42 Follow up: Rate change 5 calculated rate tm6 00:54 Follow up: Rate change 3 calculated rate tm6 08/04 19:26 Drug: Kcentra IV 1,000 unit 1,000 unit 2000 units IV at calculated rate once Route: IV; tm6 Rate: calculated rate; Site: right femoral; Disposition Summary: 08/04/23 20:15 Hospitalization Ordered Notes: Hospitalization Status: Inpatient Admission rn Provider: Rony Chandra rn Condition: Fair rn Problem: new rn Symptoms: have improved rn Bed/Room Type: Standard rn Location: [facility] ER HOLD(08/04/23 22:10) vc1 Room Assignment: ERHOLD-(08/04/23 22:10) vc1 Diagnosis - GI Bleed/ Gastrointestinal hemorrhage, unspecified rn - Anemia, unspecified rn - Hypovolemic shock rn Forms: - Medication Reconciliation Form rn - SBAR form rn - Leadership Thank You Letter pattern marker time excluding procedures: 20:11 Critical care time: Bedside Care: 30 minutes, Consultation: 5 minutes. Total time: 35 rn minutes Signatures: Dispatcher [employer] Dwight Shukla MD MD rn Calcote, Vanessa, RN RN vc1 Laureen Lozoya RN RN ko1 Alfred Conley MD MD sp4 Gavin Hanley RN RN tm6 Corrections: (The following items were deleted from the chart) 22:10 20:15 Intensive Care Unit rn vc1 22:10 20:15 rn vc1
[2023-08-04] MEDS ORDERED: ONDANSETRON 4 MG/2 ML VIAL IV PRN (20:24)
[2023-08-04] MEDS ORDERED: MAGNESIUM 50% 4 GM in NA CHLORIDE 0.9% 100 ML IV ONE (20:27)
--- NOTE | 2023-08-04 20:41 | P.HP ---
Certification for Inpatient With expected LOS: >2 Midnights Practitioner: I am a practitioner with admitting privileges, knowledge of patient current condition, hospital course, and medical plan of care. Services: Services provided to patient in accordance with Admission requirements found in Title 42 Section 412.3 of the Code of Federal Regulations Patient History Date of Service: 08/04/23 Reason for admission: GI bleed History of Present Illness: 68-year-old female with a history of chronic A-fib on Xarelto, diastolic heart failure, nonobstructive CAD [cath 03/02], COPD and BEATRICE on CPAP, venous stasis wounds and morbid obesity. Patient was brought to the ER due decreased mental status and recurrent falls. She reported she has fallen twice this week. When EMS arrived she had decreased consciousness, bradycardia and low blood pressure. Patient reported black tarry stools for the last few weeks, she is unsure of complete duration. She denied any nausea, abdominal pain, diarrhea or vomiting. On arrival to the ED initial BP was 78/53 with a pulse of 45. Rest of vital signs were unremarkable. Abnormal lab findings include WBC 2.3k, H&H 4.5/14.8, MCV 100, platelets 100, bicarb 19, anion gap 16, glucose 65, mag 0.9, BNP 1171 and GFR of 64. Chest x-ray showed mild to moderate CHF. Echo from last year showed diastolic dysfunction with LVH. She was given 500 cc fluid bolus x 2. She received Kcentra 1000 units, 2 units PRBC and a unit of platelets. Patient has been started on Protonix drip along with Levophed and admitted to the ICU. GI has been consulted Dr. Arana will evaluate the patient. Allergies insect venom Adverse Reaction (Verified 05/25/19 00:45) Anaphylaxis Home Medications: Amiodarone HCl [Cordarone*] 200 mg PO DAILY 05/25/19 Aspirin [Aspir-Low] 81 mg PO DAILY 05/25/19 Cholecalciferol (Vitamin D3) [Vitamin D3] 1,000 unit PO BID 05/25/19 Clopidogrel Bisulfate [Plavix*] 75 mg PO DAILY 05/25/19 Magnesium Oxide [Magnesium] 250 mg PO DAILY 05/25/19 Pregabalin [Lyrica*] 50 mg PO DAILY 05/25/19 Rivaroxaban [Xarelto*] 15 mg PO DAILY 05/25/19 Triamcinolone 0.1% Oint [Kenalog 0.1% Ointment*] 1 appl TOP BID PRN 05/25/19 Zinc Sulfate [Zinc Sulfate*] 220 mg PO DAILY 05/25/19 carvediloL [Coreg*] 25 mg PO TID 05/25/19 cloNIDine HCL [Catapres] 0.1 mg PO TID 05/25/19 Fluocinonide [Lidex] 1 appl TD PRN 08/10/19 Lidocaine 4% Patch [Lidoderm 5% Patch*] 1 patch TD PRN 08/10/19 Levalbuterol [Xopenex*] 0.63 mg NEB TID PRN #90 vial 08/14/19 predniSONE [Deltasone*] 10 mg PO DAILY #5 tab 08/14/19 Budesonide/Formoterol Fumarate [Symbicort 160-4.5 Mcg Inhaler] 2 puff IH BID #1 hfa.aer.ad 08/15/19 ALPRAZolam [Xanax*] 1 tab PO PRN PRN 03/11/22 Allopurinol 1 tab PO DAILY 03/11/22 Amitriptyline HCl 1 tab PO DAILY 03/11/22 Amlodipine Besylate [Norvasc] 1 tab PO DAILY 03/11/22 Cholecalciferol (Vitamin D3) [Vitamin D 1000 Iu Tab*] 1 tab PO DAILY 03/11/22 Collagenase [Santyl Ointment*] 250 units TOP DAILY 03/11/22 Ferrous Sulfate 1 tab PO DAILY 03/11/22 Hydralazine HCl 1 tab PO Q8HR PRN 03/11/22 Losartan Potassium 1 tab PO DAILY 03/11/22 Mupirocin Cream [Bactroban 2% Cream*] 1 dose TOP BID 03/11/22 SUMAtriptan succinate [Sumatriptan Succinate] 100 mg PO BID PRN 03/11/22 Sertraline HCl 1 tab PO DAILY 03/11/22 Spironolactone 25 mg PO DAILY 03/11/22 Tizanidine HCl 4 mg PO TID PRN 03/11/22 Topiramate 2 tab PO BID 03/11/22 Trazodone HCl 1 tab PO BEDTIME 03/11/22 Vitamin E (Dl,Tocopheryl Acet) [Vitamin E] 1 cap PO BID 03/11/22 buPROPion HCL [Wellbutrin Xl] 1 tab PO DAILY 03/11/22 hydrOXYzine pamoate [Hydroxyzine Pamoate] 1 tab PO Q8HR PRN 03/11/22 Atorvastatin Calcium [Lipitor] 40 mg PO BEDTIME #30 tab 03/13/22 Bumetanide 1 mg PO DAILY #30 tab 03/13/22 metOLazone [Zaroxolyn*] 2.5 mg PO M,W,F #15 tab 03/13/22 - Past Medical/Surgical History Diabetic: No -: Obstructive sleep apnea -: HTN -: CHF -: Gout -: Venous insufficiency -: Tobacco abuse -: Morbid obesity -: afib -: Skin graft -: x2 -: vein removal on R leg (2014) Psychosocial/ Personal History: The patient is recently . - Family History Mother -: Diabetes Notes: Alzheimer's Father -: Heart disease, Stroke - Social History Alcohol use: No CD- Drugs: No Caffeine use: No Review of Systems General: Weakness Eyes: Unremarkable ENT: Unremarkable Respiratory: Unremarkable Cardiovascular: Unremarkable Gastrointestinal: No Distention, Melena Genitourinary: Unremarkable Musculoskeletal: Unremarkable Integumentary: Lesions (LLE) Physical Examination - Vital Signs Temperature: 95.8 F Blood Pressure: 102/72 Pulse: 60 Respirations: 20 - Physical Exam General: In no apparent distress, Oriented x3 (But very sleepy) HEENT: Atraumatic, Normocephalic, Other (Dry mucous membrane) Neck: Supple, JVD not distended Respiratory: Clear to auscultation bilaterally, Normal air movement Cardiovascular: No edema (Bradycardia) Gastrointestinal: Normal bowel sounds, Soft and benign, Non-distended, No tenderness Musculoskeletal: No swelling, No tenderness Integumentary: Skin lesion (Left lower extremity), Venous stasis ulcer - Studies Laboratory Data (last 24 hrs) 08/04/23 08/04/23 08/04/23 17:44 17:44 17:44 WBC 2.30 L Hgb 4.5 L* Hct 14.8 L Plt Count 82 L PT 21.9 H INR 2.03 Sodium 138 Potassium 3.6 BUN 14 Creatinine 0.97 Glucose 65 L Magnesium 0.9 L* Assessment and Plan - Plan GI bleed/melena Acute blood loss anemia Hypovolemic shock Anticoagulation use Chronic diastolic dysfunction Chronic A-fib Pancytopenia with macrocytosis Anion gap metabolic acidosis CKD stage II Nonobstructive CAD Hypomagnesemia Morbid obesity COPD and obstructive sleep apnea Left lower extremity venous stasis wound Plan Admit to ICU Currently on Levophed at 10 mcg/hr, wean as tolerated S/p protonix bolus, continue infusion NPO, pending further recommendations from GI S/p Kcentra, 2u PRBC, IV fluid bolus and platelets Monitor H&H and transfuse as appropriate Follow-up iron level, TIBC, folate level B12 and ferritin Continue serial labs CBC, CMP, mag, troponin and INR Hold all anticoagulation Supplemental oxygen and CPAP at night Replace with IV magnesium Wound care Critical care time 55 minutes - Advance Directives Does patient have a Living Will: No Does patient have a Durable POA for Healthcare: No
[2023-08-04 21:08] LABS: Ferritin 26.1 ng/mL (8-388)
[2023-08-05] MEDS ORDERED: Magnesium Sulfate 2gm IVPB 4 G/100 ML BAG IV ONE (00:12)
[2023-08-05] MEDS ORDERED: NOREPINEPHRINE BITARTRATE/D5W 4 MG/250 ML BAG IV ONE (00:15)
[2023-08-05 02:30] VITALS: BMI 40.2
[2023-08-05] MEDS ORDERED: NA CHLORIDE 0.9% 250 ML ONE (03:48)
[2023-08-05] MEDS: PANTOPRAZOLE INJ 80 MG in NA CHLORIDE 0.9% 250 ML IV SCH (04:41)
[2023-08-05 04:51] LABS: Absolute Lymphocytes (CBC) 0.6 K/uL (0.7-4.9); Hematocrit 35.5 % (36.0-45.0); MCV 95.1 fL (80-100); MPV 8.7 fL (7.6-11.3); Platelets 192 thou/uL (152-406); RBC Red Blood Cell Count 3.73 M/uL (3.86-4.86)
[2023-08-05 05:08] LABS: Protime INR 1.18
[2023-08-05 05:19] LABS: Albumin 2.9 g/dL (3.4-5.0); Bilirubin Total 0.5 mg/dL (0.2-1.0); Phosphorus 4.4 mg/dL (2.5-4.9); Potassium 3.5 mEq/L (3.5-5.1); Protein, Total 7.3 g/dL (6.4-8.2)
[2023-08-05 05:20] LABS: Magnesium 2.7 mg/dL (1.6-2.4)
[2023-08-05] MEDS ORDERED: SOD FERRIC GLUC COMPLX/SUCROSE 125 MG in NA CHLORIDE 0.9% 100 ML IV SCH (09:00)
[2023-08-05] MEDS ORDERED: Ringers Lactate 1,000 ML IV ONE (13:13)
[2023-08-05] MEDS ORDERED: LIDOCAINE 1% MPF 5 ML VIAL ONE (13:31)
[2023-08-05] MEDS ORDERED: propofoL 200 MG/20 ML VIAL IV ONE (13:31)
[2023-08-05] MEDS ORDERED: EPINEPHRINE 1 MG/ML VIAL ONE ×2 (13:50)
--- NOTE | 2023-08-05 14:45 | P.PN ---
Subjective Date of Service: 08/05/23 Chief Complaint: GI bleed Patient endorsed history of black stools. She denies any abdominal pain. She denies any shortness of breath. Hemoglobin improved to 11.5 after 2 units PRBC transfusion. Physical Examination - Vital Signs Temperature: 99.1 F Blood Pressure: 131/78 Pulse: 91 Respirations: 18 Pulse Ox (%): 97 - Physical Exam General: Alert, In no apparent distress, Oriented x3, Obese HEENT: Mucous membr. moist/pink, Sclerae nonicteric Neck: Supple, JVD not distended Respiratory: Clear to auscultation bilaterally, Normal air movement Cardiovascular: No edema, Regular rate/rhythm, Normal S1 S2 Gastrointestinal: Normal bowel sounds, Soft and benign, Non-distended, No tenderness Musculoskeletal: No swelling Integumentary: No rashes, No cyanosis Neurological: Normal strength at 5/5 x4 extr, Cranial nerves 3-12 intact - Studies Laboratory Data (last 24 hrs) 08/04/23 08/04/23 08/04/23 17:44 17:44 17:44 WBC 2.30 L Hgb 4.5 L* Hct 14.8 L Plt Count 82 L PT 21.9 H INR 2.03 Sodium 138 Potassium 3.6 BUN 14 Creatinine 0.97 Glucose 65 L Magnesium 0.9 L* Assessment And Plan - Plan Diagnosis GI bleed/melena Acute blood loss anemia Hypovolemic shock Anticoagulation use Chronic diastolic dysfunction Chronic A-fib Pancytopenia with macrocytosis CKD stage III Nonobstructive CAD Hypomagnesemia Morbid obesity COPD and obstructive sleep apnea Left lower extremity venous stasis wound Plan: Upper GI bleed/peptic ulcer/acute blood loss anemia/hypovolemic shock/thrombocytopenia Patient denies any active bleeding. She also denied any diarrhea. Noted to have mild thrombocytopenia. Etiology of hypotension is unclear. Patient is on a cocktail of antihypertensives. Hypotension could be drug-induced. Patient seen and evaluated by Dr. Santillan, EGD performed which shows nonbleeding gastric and peptic ulcers which were injected with epinephrine. Status post Protonix drip. Transition to Protonix IV every 12 hours. Continue to hold Xarelto. Monitor H&H and monitor for active bleeding. Chronic atrial fibrillation/chronic anticoagulation Patient has been on amiodarone and Xarelto for A-fib. She states that she is scheduled for evaluation for cardiac ablation. Continue amiodarone, hold Xarelto. 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 Acute kidney injury/hypomagnesemia Hypomagnesemia corrected. Could be ATN related to hypotension. Monitor renal function. Nephrology consult. COPD Obstructive sleep apnea Morbid obesity Stable CPAP during sleep. Left lower extremity venous stasis ulcer Continue local wound care. DVT prophylaxis: SCD
[2023-08-05] MEDS ORDERED: SODIUM CHLORIDE 0.9% 10ML INJ IV PRN (15:02)
[2023-08-05] MEDS ORDERED: ALPRAZOLAM 0.5 MG TABLET PO PRN (15:10)
[2023-08-05] MEDS ORDERED: TIZANIDINE 4 MG TABLET PO PRN (16:09)
--- NOTE | 2023-08-05 16:27 | EKG ---
Test Date: 2023-08-04 Test Time: 17:32:25 Dental Nurse: JOSE CRUZ MEASUREMENT RESULTS: Intervals: Rate: 55 TX: QRSD: 108 QT: 538 QTc: 514 [place]: P: 66 TX: QRS: 49 T: 78 INTERPRETIVE STATEMENTS: Atrial flutter Low voltage QRS Nonspecific T wave abnormality Prolonged QT Abnormal ECG Compared to ECG 11/15/2022 22:18:31 Low QRS voltage now present T-wave abnormality now present Left-axis deviation no longer present Myocardial infarct finding no longer present Electronically Signed On 08-05-23 16:25:37 DECORATIVE ENGRAVER APPRENTICE by Blake Raphael
[2023-08-05] MEDS ORDERED: PANTOPRAZOLE INJ 80 MG in NA CHLORIDE 0.9% 250 ML IV SCH (18:00)
[2023-08-05] MEDS: ATORVASTATIN 40 MG TAB PO SCH (20:42)
[2023-08-05] MEDS: PANTOPRAZOLE 40 MG INJ IVP SCH (20:42)
[2023-08-05] MEDS: DULERA 200/5 (MOMETASONE/FORMOTEROL) INHALER IH SCH (21:00)
[2023-08-06 07:17] LABS: Absolute Lymphocytes (CBC) 0.7 K/uL (0.7-4.9); Hematocrit 35.6 % (36.0-45.0); Lymphocytes % 13.1 % (15.3-44.8); MCV 94.8 fL (80-100); MPV 8.4 fL (7.6-11.3); Platelets 193 thou/uL (152-406); RBC Red Blood Cell Count 3.75 M/uL (3.86-4.86)
[2023-08-06 07:31] LABS: Potassium 3.4 mEq/L (3.5-5.1)
[2023-08-06] MEDS: allopurinoL 300 MG TAB PO SCH (08:58)
[2023-08-06] MEDS: PANTOPRAZOLE 40 MG INJ IVP SCH ×2 (08:58→20:24)
[2023-08-06] MEDS: PREGABALIN 50 MG CAP PO SCH (08:58)
[2023-08-06] MEDS: AMIODARONE HCL 200 MG TAB PO SCH (08:58)
[2023-08-06] MEDS: BUPROPION HCL XL 150 MG TAB PO SCH (09:00)
[2023-08-06] MEDS: DULERA 200/5 (MOMETASONE/FORMOTEROL) INHALER IH SCH ×2 (09:03→20:25)
[2023-08-06] MEDS: ZINC SULFATE 220 MG CAP PO SCH (09:08)
[2023-08-06] MEDS ORDERED: HYDRALAZINE HCL 20 MG/ML VIAL IV PRN (14:45)
--- NOTE | 2023-08-06 14:45 | P.PN ---
Subjective Date of Service: 08/06/23 Chief Complaint: GI bleed Patient denies any complaint today. She denies any BM today. She denies any shortness of breath. She denies any abdominal pain. Physical Examination - Vital Signs Temperature: 97.9 F Blood Pressure: 143/76 Pulse: 76 Respirations: 16 Pulse Ox (%): 96 - Physical Exam General: Alert, In no apparent distress, Oriented x3 HEENT: Mucous membr. moist/pink Neck: JVD not distended Respiratory: Clear to auscultation bilaterally, Normal air movement Cardiovascular: No edema, Normal S1 S2, Irregular heart rate/rhythm Gastrointestinal: Normal bowel sounds, Soft and benign, Non-distended, No tenderness Integumentary: No rashes, No cyanosis Neurological: Normal strength at 5/5 x4 extr Assessment And Plan - Plan Diagnosis GI bleed/melena Acute blood loss anemia Hypovolemic shock Anticoagulation use Chronic diastolic dysfunction Chronic A-fib Pancytopenia with macrocytosis CKD stage III Nonobstructive CAD Hypomagnesemia Morbid obesity COPD and obstructive sleep apnea Left lower extremity venous stasis wound Plan: Upper GI bleed/peptic ulcer/acute blood loss anemia/hypovolemic shock/thrombocytopenia Patient denies any active bleeding. She also denied any diarrhea. Noted to have mild thrombocytopenia. Etiology of hypotension is unclear. Patient is on a cocktail of antihypertensives. Hypotension could be drug-induced. Patient seen and evaluated by Dr. Santillan, EGD performed which shows nonbleeding gastric and peptic ulcers which were injected with epinephrine. Status post Protonix drip. Transition to Protonix IV every 12 hours. Will transition to oral Protonix twice daily on discharge. Xarelto discontinued. Anticoagulation resumption discussed with GI Dr. Santillan recommend resuming anticoagulation as soon as feasible. Patient had a nonbleeding ulcer. Her [id number] score is 4 which puts her at a considerably high risk for stroke. Medical literature review suggested anticoagulation resumption 7 days after GI bleed. Also noted Eliquis with a lower risk of GI bleed compared to Xarelto. Will therefore recommend anticoagulation resumption 7 days from now with Eliquis unless another bleed occur. Continue to monitor H&H and monitor for active bleeding. Dr. Santillan recommend follow-up with him as outpatient for repeat endoscopy. Follow-up biopsy result. Chronic atrial fibrillation/chronic anticoagulation Patient has been on amiodarone and Xarelto for A-fib. She states that she is scheduled for evaluation for cardiac ablation. Continue amiodarone, hold Xarelto. 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 Acute kidney injury/hypomagnesemia Hypomagnesemia corrected. Could be ATN related to hypotension. Monitor renal function significantly improved. Nephrology consult as needed. COPD Obstructive sleep apnea Morbid obesity Stable CPAP during sleep. Left lower extremity venous stasis ulcer Continue local wound care. Hypertension Patient is currently hypertensive. Will resume her antihypertensives stepwise Hydralazine as needed for BP spikes. DVT prophylaxis: SCD
--- NOTE | 2023-08-06 15:24 | P.PN ---
Subjective Date of Service: 08/06/23 Chief Complaint: GI bleed, , DU Subjective: Improving (No further bleeding. Hgb stable at 11.5 to 11.4 overnight. EGD yesterday revealed a large 1 cm gastric ulcer at the angulus and 4 mm ulcer in the duodenal bulb.) Review of Systems Unremarkable Physical Examination - Vital Signs Temperature: 97.9 F Blood Pressure: 143/76 Pulse: 76 Respirations: 16 Pulse Ox (%): 96 - Physical Exam General: Alert, In no apparent distress, Oriented x3, Cooperative, Obese HEENT: Atraumatic, Normocephalic, PERRLA, EOMI Neck: Supple Respiratory: Normal air movement Cardiovascular: Normal pulses Gastrointestinal: Soft and benign, No tenderness, No rebound, No guarding Neurological: Normal speech, Normal strength at 5/5 x4 extr Assessment And Plan - Current Problems (Diagnosis) (1) Melena Current Visit: Yes Status: Acute Comment: None in > 24 hours. Feels better. Tolerating clear liquid diet. (2) Anemia Current Visit: Yes Status: Acute (3) Ulcer, gastric, acute Current Visit: Yes Status: Acute (4) Duodenal bulb ulcer Current Visit: Yes Status: Acute - Plan REC: 1) PPI bid 2) advance diet to full liquid to GI soft 3) can discharge today or tomorrow 4) EGD in 2-3 months to ensure large gastric ulcer heals 5) GI clinic follow-up 6) outpatient colon cancer screening (none prior)
[2023-08-06] MEDS: carvediloL 25 MG TAB PO SCH (17:46)
[2023-08-06] MEDS: LOSARTAN POTASSIUM 50 MG TABLET PO SCH (17:46)
--- NOTE | 2023-08-06 19:34 | CON ---
Date of Consultation: 08/04/2023 Reason For Consultation: GI bleed with melena and syncope. Hemoglobin down to 4.5. History Of Present Illness: This is a 68-year-old female with history of hypertensi on, congestive heart failure, atrial fibrillation, diastolic heart failure, congestive heart failure, COPD, obstructive sleep apnea, on CPAP machine, venous stasis disease, and morbid obesity. The lynn ent presented to the hospital due to GI bleed with melena and syncope. The patient had been falling down several times prior to admission. Family called EMS. The patient was brought to the hospital. The patient is on Plavix and Xarelto for her atrial fibrillation. The patient was given Ramona f or the Xarelto to reverse it. Of note, hemoglobin 4.5. The patient denies any hematemesis, coffee-g round emesis, hematochezia, only melena, dark stools. The patient was hypotensive and requiring IV p ressors including norepinephrine in the emergency room. Once the patient had received a unit of pack ed RBCs, it appears that her requirement for IV pressors resolved. Past Medical History: Significant for hypertension, atrial fibrillation and coronary artery disease, status post CAB in February 2002, diastolic congestive heart failure, COPD, obstructive sleep apnea, C PAP, dilated cardiomyopathy, gout, asthma, bronchitis. Home Medications: Include amiodarone, aspirin, vitamin D3, Plavix, Xarelto, magnesium, Lyrica, triam cinolone cream, zinc sulfate pills, Coreg, Catapres, Lidex, Lidoderm, levalbuterol, prednisone, budes onide, Xanax, allopurinol, amitriptyline, amlodipine, vitamin D3, collagenase, iron sulfate, hydralaz ine, losartan, cream, sumatriptan, sertraline, Aldactone, tizanidine, topiramate, trazodon e, vitamin E. Bupropion, this is Wellbutrin. Hydroxyzine, Lipitor, budesonide, and Zaroxolyn. Allergies: NKDA, BUT HAS ALLERGIES TO INSECT VENOM. Social History: She is a . Two children. Positive tobacco. Positive for rare alcohol. Lives with son and [id number] and 2 grandchildren. Family History: Father of stroke at age 67. Mother of old age at age 90. It appears moth er also had Alzheimer's disease and diabetes. Father also had coronary artery disease. Review of Systems: The patient has melena, syncope. Denies any seizures, syncope, chest pain, shortness of breath, musc le aches, joint aches, backaches, depression, anxiety, even though she is on sertraline for this prio r, otherwise not depressed. No hematemesis, coffee-ground emesis, hematochezia. She does have melen a. No hematuria, dysuria, polydipsia, multiple muscle aches, joint aches, backaches. Physical Examination: Vital Signs: The patient is 5 foot 7 inches, 257 pounds, BMI 40.3 kg/m2, temperature of 95.8 degrees Fahrenheit, pulse 55, respiration 19, blood pressure 98/73, O2 saturation 100%. General: She is an obese female, lying in bed, in no acute distress. HEENT: Normocephalic, atraumatic. Anicteric. Pupils equal, round, and reactive to light. Extraocu lar movements intact. Oropharynx is clear. Neck: Supple. No masses. Respirations: Clear to auscultation bilaterally. Cardiac: Regular rate and rhythm. Gastrointestinal: Positive bowel sounds. Soft, nontender, nondistended. No hepatosplenomegaly. Ob marylou. Extremities: No clubbing, cyanosis, or edema. Trace lower extremity edema. Neuro: Alert and oriented x3. Grossly nonfocal. 5/5 motor strength. Sensation is intact to light touch. Laboratory Data: The patient has white count of 2.3, hemoglobin of 4.5 on admission earlier today, h ematocrit of 14.8, MCV of 100, platelet count 82, polys of 66%, lymphocytes 20%, monocytes 10%, and e osinophils 4%. PT of 21.9, INR of 2.03. Sodium 138, potassium 3.6, chloride 106, bicarb 19, BUN of 14, creatinine of 0.97, glucose 65, calcium 7.1, magnesium 0.9. Iron saturation 10.6 with low ferrit in of 26.1, normal. Troponin I . B-type natriuretic peptide 1171. B12 of 348, folate 6.0 . Impression: 1.GI bleed, melena with syncope prior to admission, on Plavix and aspirin. Need Plavix and Xarelto for atrial fibrillation. There is a plan in the future for the patient to undergo ablation procedure or Watchman procedures for her atrial fibrillation as outpatient. 2.History of anemia on this admission with hemoglobin of 4.5. 3.Hypotension, on IV pressors including IV norepinephrine. 4.History of hypertension, coronary artery disease with diastolic congestive heart failure with dila marco antonio cardiomyopathy, gout, asthma, bronchitis, and others per above. Recommendation: 1.We will continue IV pressors. Continue IV fluids resuscitation with history of congestive heart f ailure. 2.Transfuse with packed RBCs and platelets as planned. 3.Continue IV Protonix drip. Urgent EGD and agree with Allison. CARLOS/MORIAH Voice ID: [id number] Report ID: [id number]
[2023-08-06] MEDS: ATORVASTATIN 40 MG TAB PO SCH (20:24)
[2023-08-07 05:33] LABS: Absolute Lymphocytes (CBC) 0.8 K/uL (0.7-4.9); Hematocrit 36.9 % (36.0-45.0); MCV 95.7 fL (80-100); MPV 9.1 fL (7.6-11.3); Platelets 197 thou/uL (152-406); RBC Red Blood Cell Count 3.86 M/uL (3.86-4.86)
[2023-08-07 05:47] LABS: Potassium 3.9 mEq/L (3.5-5.1)
[2023-08-07] MEDS ORDERED: PANTOPRAZOLE 40MG TABLET PO ONE (08:48)
[2023-08-07] MEDS ORDERED: AMLODIPINE 10 MG TAB PO SCH (09:00)
[2023-08-07] MEDS: ZINC SULFATE 220 MG CAP PO SCH (09:00)
[2023-08-07 09:57] VITALS: O2SAT 97
[2023-08-07] MEDS: carvediloL 25 MG TAB PO SCH (10:30)
[2023-08-07] MEDS: LOSARTAN POTASSIUM 50 MG TABLET PO SCH (10:31)
[2023-08-07] MEDS: BUPROPION HCL XL 150 MG TAB PO SCH (10:31)
[2023-08-07] MEDS: AMIODARONE HCL 200 MG TAB PO SCH (10:31)
[2023-08-07] MEDS: allopurinoL 300 MG TAB PO SCH (10:31)
[2023-08-07] MEDS: PREGABALIN 50 MG CAP PO SCH (10:31)
[2023-08-07] MEDS: PANTOPRAZOLE 40 MG INJ IVP SCH (10:32)
[2023-08-07] MEDS: DULERA 200/5 (MOMETASONE/FORMOTEROL) INHALER IH SCH (10:32)
--- NOTE | 2023-08-07 13:56 | P.DS ---
Admission Date: 08/04/23 Discharge Date: 08/07/23 Disposition: ROUTINE DISCHARGE Discharge Condition: FAIR Reason for Admission: GI bleed, , DU Brief History of Present Illness: 68-year-old female with a history of chronic A-fib on Xarelto, diastolic heart failure, nonobstructive CAD [cath 03/02], COPD and BEATRICE on CPAP, venous stasis wounds and morbid obesity. Patient was brought to the ER due decreased mental status and recurrent falls. She reported she has fallen twice this past week. When EMS arrived she had decreased consciousness, bradycardia and low blood pressure. Patient reported black tarry stools for the last few weeks, she is unsure of complete duration. She denied any nausea, abdominal pain, diarrhea or vomiting. On arrival to the ED initial BP was 78/53 with a pulse of 45. Rest of vital signs were unremarkable. Abnormal lab findings include WBC 2.3k, H&H 4.5/14.8, MCV 100, platelets 100, bicarb 19, anion gap 16, glucose 65, mag 0.9, BNP 1171 and GFR of 64. Chest x-ray showed mild to moderate CHF. Echo from last year showed diastolic dysfunction with LVH. She was given 500 cc fluid bolus x 2. She received Kcentra 1000 units, 2 units PRBC and a unit of platelets. Patient was started on Protonix drip along with Levophed and admitted to the ICU. GI Dr. Arana was consulted to evaluate the patient. Hospital Course: Patient was admitted to the medical floor and the following medical problems addressed: Upper GI bleed/peptic ulcer/acute blood loss anemia/hypovolemic shock/thrombocytopenia Patient denied any active bleeding. She also denied any diarrhea. She endorsed black stools. Noted to have mild thrombocytopenia. Etiology of hypotension was unclear. Patient is on a cocktail of antihypertensives. Hypotension could be drug-induced. Patient seen and evaluated by Dr. Santillan, EGD performed which showed nonbleeding gastric and peptic ulcers which were injected with epinephrine. Status post Protonix drip. Transition to Protonix IV every 12 hours and then to oral Protonix twice daily on discharge. Xarelto discontinued. Anticoagulation resumption discussed with MATEUSZ Santillan who recommended resuming anticoagulation as soon as feasible. Patient had a nonbleeding ulcer. Her [id number] score is 4 which puts her at a considerably high risk for stroke. Medical literature review suggested anticoagulation resumption 7 days after GI bleed. Also noted Eliquis with a lower risk of GI bleed compared to Xarelto. Recommended anticoagulation resumption 7 days from now with Eliquis unless another bleed occur. This has been communicated to her PCP. Hemoglobin was stable after endoscopy. Dr. Santillan recommend follow-up with him as outpatient for repeat endoscopy. Follow-up biopsy result as outpatient. Patient tolerated diet advancement to soft consistency. Chronic atrial fibrillation/chronic anticoagulation Patient has been on amiodarone and Xarelto for A-fib. She states that she is scheduled for evaluation for a cardiac procedure. She could not be specific Continued amiodarone, held Xarelto. Patient to follow-up with her campaign manager as outpatient. Acute kidney injury/hypomagnesemia Hypomagnesemia corrected. EDELMIRA could be ATN related to hypotension. EDELMIRA resolved. COPD Obstructive sleep apnea Morbid obesity Stable Left lower extremity venous stasis ulcer Local wound care. Hypertension Home antihypertensives resumed. Vital Signs/Physical Exam: Temp Pulse Resp BP Pulse Ox 97.7 F 79 18 147/76 H 99 08/07/23 12:00 08/07/23 12:00 08/07/23 12:00 08/07/23 12:00 08/07/23 12:00 General: Alert, In no apparent distress, Oriented x3 HEENT: Normocephalic, Mucous membr. moist/pink Neck: Supple, JVD not distended Respiratory: Clear to auscultation bilaterally, Normal air movement Cardiovascular: No edema, Regular rate/rhythm, Normal S1 S2 Gastrointestinal: Normal bowel sounds, Soft and benign, Non-distended, No tenderness Integumentary: No rashes, No cyanosis Neurological: Normal strength at 5/5 x4 extr Laboratory Data at Discharge: WBC 6.50 thou/uL (4.3-10.9) 08/07/23 05:05 Hgb 11.8 g/dL (12.0-15.0) L 08/07/23 05:05 Hct 36.9 % (36.0-45.0) 08/07/23 05:05 Plt Count 197 thou/uL (152-406) 08/07/23 05:05 PT 12.9 SECONDS (9.5-12.5) H 08/05/23 04:38 INR 1.18 08/05/23 04:38 Sodium 139 mEq/L (136-145) 08/07/23 05:05 Potassium 3.9 mEq/L (3.5-5.1) D 08/07/23 05:05 BUN 12 mg/dL (7-18) 08/07/23 05:05 Creatinine 1.01 mg/dL (0.55-1.02) 08/07/23 05:05 Glucose 102 mg/dL (74-106) 08/07/23 05:05 Phosphorus 4.4 mg/dL (2.5-4.9) 08/05/23 04:38 Magnesium 2.7 mg/dL (1.6-2.4) H 08/05/23 04:38 Total Bilirubin 0.5 mg/dL (0.2-1.0) 08/05/23 04:38 AST 16 U/L (15-37) 08/05/23 04:38 ALT 16 U/L (13-56) 08/05/23 04:38 Alkaline Phosphatase 87 U/L (45-117) 08/05/23 04:38 Home Medications: Amiodarone HCl [Cordarone*] 200 mg PO DAILY 05/25/19 Cholecalciferol (Vitamin D3) [Vitamin D3] 1,000 unit PO BID 05/25/19 Magnesium Oxide [Magnesium] 250 mg PO DAILY 05/25/19 Pregabalin [Lyrica*] 50 mg PO DAILY 05/25/19 Triamcinolone 0.1% Oint [Kenalog 0.1% Ointment*] 1 appl TOP BID PRN 05/25/19 Zinc Sulfate [Zinc Sulfate*] 220 mg PO DAILY 05/25/19 carvediloL [Coreg*] 25 mg PO TID 05/25/19 cloNIDine HCL [Catapres] 0.1 mg PO TID 05/25/19 Fluocinonide [Lidex] 1 appl TD PRN 08/10/19 Lidocaine 4% Patch [Lidoderm 5% Patch*] 1 patch TD PRN 08/10/19 Levalbuterol [Xopenex*] 0.63 mg NEB TID PRN #90 vial 08/14/19 Budesonide/Formoterol Fumarate [Symbicort 160-4.5 Mcg Inhaler] 2 puff IH BID #1 hfa.aer.ad 08/15/19 ALPRAZolam [Xanax*] 1 tab PO PRN PRN 03/11/22 Allopurinol 1 tab PO DAILY 03/11/22 Amitriptyline HCl 1 tab PO DAILY 03/11/22 Amlodipine Besylate [Norvasc] 1 tab PO DAILY 03/11/22 Cholecalciferol (Vitamin D3) [Vitamin D 1000 Iu Tab*] 1 tab PO DAILY 03/11/22 Collagenase [Santyl Ointment*] 250 units TOP DAILY 03/11/22 Ferrous Sulfate 1 tab PO DAILY 03/11/22 Hydralazine HCl 1 tab PO Q8HR PRN 03/11/22 Losartan Potassium 1 tab PO DAILY 03/11/22 Mupirocin Cream [Bactroban 2% Cream*] 1 dose TOP BID 03/11/22 SUMAtriptan succinate [Sumatriptan Succinate] 100 mg PO BID PRN 03/11/22 Sertraline HCl 1 tab PO DAILY 03/11/22 Spironolactone 25 mg PO DAILY 03/11/22 Tizanidine HCl 4 mg PO TID PRN 03/11/22 Topiramate 2 tab PO BID 03/11/22 Trazodone HCl 1 tab PO BEDTIME 03/11/22 Vitamin E (Dl,Tocopheryl Acet) [Vitamin E] 1 cap PO BID 03/11/22 buPROPion HCL [Wellbutrin Xl] 1 tab PO DAILY 03/11/22 hydrOXYzine pamoate [Hydroxyzine Pamoate] 1 tab PO Q8HR PRN 03/11/22 Atorvastatin Calcium [Lipitor] 40 mg PO BEDTIME #30 tab 03/13/22 Bumetanide 1 mg PO DAILY #30 tab 03/13/22 metOLazone [Zaroxolyn*] 2.5 mg PO M,W,F #15 tab 03/13/22 Pantoprazole [Protonix Tab] 40 mg PO BID #60 tab 08/07/23 New Medications: Pantoprazole [Protonix Tab] 40 mg PO BID #60 tab Physician Discharge Instructions: Your hemoglobin was very low requiring immediate blood transfusion. You reported black stool which indicates bleeding from the gastrointestinal tract. You were seen by the corn detasseler machine operator Dr. Santillan who performed endoscopy and noted to have ulcers in your stomach and your duodenum which is the first portion of your small bowel. You take a blood thinner Xarelto which increases your risk of bleeding from an ulcer in your gastrointestinal tract. You were treated with Protonix which is a medication which reduces the acid in your stomach which can eat up your stomach or cause her to have an ulcer. Protonix to reduce the acidity in your diet to allow for your body to heal. Your score which predicts your risks for stroke because of atrial fibrillation is high. You therefore need a blood thinner to reduce that risk. This means your risk of getting a stroke during the period you are not taking your blood thinner-Xarelto is high and therefore need to be back on the blood thinner as soon as feasible. You may have to wait for 1 week before you resume your blood thinner. You need to follow-up with your PCP Dr. Herrera to decide when to resume your blood thinner and which one. You need to follow-up with Dr. Santillan within a month or 2 because he wanted to repeat an endoscopy to reassess the ulcers in your stomach and your duodenum. Biopsies were also taken during the endoscopy procedure done this hospital stay. Biopsy results need to be followed to make sure those ulcers are free of cancer and also to determine if an infection caused the ulcers in which case you will need about 6 weeks of oral antibiotics. Another lab test called a gastrin result is also pending which will be followed by Dr. Santillan. You can progress from soft diet to solid diet within a couple of days. Diet: AHA Activity: Ad columba Followup: Toi Herrera DO [Primary Care Provider] - 1 Week Yassine Santillan MD [ASSOCIATE-ACTIVE - CAN ADMIT] - (Within 2 to 4 weeks.) Time spent managing pt's care (in minutes): 38
[2023-08-07 17:00] VITALS: BP 145/82; TEMP 97.6
== END 2023-08-07 18:02 | disposition home health service (06) | DRG 377 ==
LOC: ER 17:24 → ERHOLD 20:23 → 2ND 08-05 14:35
PROVIDERS: ADMIT Internal Medicine; ATTEND Internal Medicine
PROC: 30233N1 Transfusion of Nonautologous Red Blood Cells into Peripheral Vein, Percutaneous Approach (ICD-10-PCS; 2023-08-04)
PROC: 30233R1 Transfusion of Nonautologous Platelets into Peripheral Vein, Percutaneous Approach (ICD-10-PCS; 2023-08-05)
PROC: 0DB68ZX Excision of Stomach, Via Natural or Artificial Opening Endoscopic, Diagnostic (ICD-10-PCS; 2023-08-05)
PROC: 0W3P8ZZ Control Bleeding in Gastrointestinal Tract, Via Natural or Artificial Opening Endoscopic (ICD-10-PCS; principal; 2023-08-05 13:00)
DX: K25.0 Acute gastric ulcer with hemorrhage (principal); N17.0 Acute kidney failure with tubular necrosis; R57.1 Hypovolemic shock; I48.20 Chronic atrial fibrillation, unspecified; I50.32 Chronic diastolic (congestive) heart failure; Z68.41 Body mass index [BMI] 40.0-44.9, adult; D62 Acute posthemorrhagic anemia; D61.818 Other pancytopenia; E87.20 Acidosis, unspecified; I13.0 Hypertensive heart and chronic kidney disease with heart failure and stage 1 through stage 4 chronic kidney disease, or unspecified chronic kidney disease; N17.9 Acute kidney failure, unspecified; K26.0 Acute duodenal ulcer with hemorrhage; E66.01 Morbid (severe) obesity due to excess calories; N18.2 Chronic kidney disease, stage 2 (mild); D63.1 Anemia in chronic kidney disease; G47.33 Obstructive sleep apnea (adult) (pediatric); M10.9 Gout, unspecified; E83.42 Hypomagnesemia; I87.8 Other specified disorders of veins; J44.9 Chronic obstructive pulmonary disease, unspecified; D75.89 Other specified diseases of blood and blood-forming organs; I25.10 Atherosclerotic heart disease of native coronary artery without angina pectoris; I95.2 Hypotension due to drugs; T50.905A Adverse effect of unspecified drugs, medicaments and biological substances, initial encounter; Z99.89 Dependence on other enabling machines and devices; Z79.02 Long term (current) use of antithrombotics/antiplatelets; Z79.01 Long term (current) use of anticoagulants; Z91.09 Other allergy status, other than to drugs and biological substances; Z79.82 Long term (current) use of aspirin; Z79.52 Long term (current) use of systemic steroids; Z79.899 Other long term (current) drug therapy
CPT/HCPCS: 36415; 71045; 80048; 80053; 82607; 82728; 82746; 82941; 83540; 83735; 83880; 84100; 84466; 84484; 85025; 85610; 86850; 86900; 86901; 86920; 88304; 88305; 88312; 93005; C9113; J0171; J2001; J2704; J2916; J3475; J3535; J7040; J7050; J7120; J7168; P9016; P9073

== ENCOUNTER → 2023-08-11 | Emergency (ER) | payer OTHER, BC ==
[~2023-08-11] MED LIST: CEFTRIAXONE 1000 MG/VIAL ONE; FOLIC ACID 5 MG/ML VIAL ONE; FUROSEMIDE 40 MG/4 ML VIAL ONE; NA CHLORIDE 0.9% 1,000 ML ONE; NA CHLORIDE 0.9% 250 ML ONE; PANTOPRAZOLE 40 MG INJ ONE; VANCOMYCIN 1 GM/VIAL ONE
--- NOTE | 2023-08-11 16:23 | RAD REPORT ---
EXAM DESCRIPTION: CT - Ct Stroke Brain Wo Cont - 08/11/2023 4:07 pm CLINICAL HISTORY: Left arm numbness COMPARISON: 2021 TECHNIQUE: Computed axial tomography of the head was obtained. All CT scans are performed using dose optimization technique as appropriate and may include automated exposure control or mA/KV adjustment according to patient size. FINDINGS: An intracranial bleed is not seen . The ventricles are normal in caliber. No extra-axial fluid collection is noted. No significant hypodensity within the brain Fluid within the sinuses/ mastoids is not seen. IMPRESSION: No acute intracranial abnormality is seen. If patient's symptoms persist MRI of the bra in would be recommended Dr Oneal of the emergency room was notified at 417PM August 11, 2023
[2023-08-11 16:30] LABS: Absolute Lymphocytes (CBC) 0.6 K/uL (0.7-4.9); Hematocrit 33.4 % (36.0-45.0); MCV 95.5 fL (80-100); MPV 9.5 fL (7.6-11.3); Platelets 183 thou/uL (152-406)
[2023-08-11 16:36] LABS: Protime INR 1.29
[2023-08-11 16:51] LABS: Troponin High Sensitivity 56.5 pg/mL (<58.9)
[2023-08-11 16:56] LABS: Potassium 4.3 mEq/L (3.5-5.1)
[2023-08-11 17:07] LABS: Albumin 2.8 g/dL (3.4-5.0); Bilirubin Direct 0.1 mg/dL (0-0.2); Bilirubin Indirect, Calculated 0.3 mg/dL (0.2-0.8); Bilirubin Total 0.4 mg/dL (0.2-1.0); Magnesium 1.8 mg/dL (1.6-2.4)
[2023-08-11 17:11] LABS: Blood Morphology Comment NOT SEEN (NOT SEEN); Platelet Estimate ADEQ; Toxic Granulation 1+; White Blood Cell Scan OK (OK)
--- NOTE | 2023-08-11 17:27 | RAD REPORT ---
EXAM DESCRIPTION: [facility] Single View08/11/2023 5:06 pm CLINICAL HISTORY: sob COMPARISON: August 04, 2023 FINDINGS: pulmonary vascular congestion Lungs probably are clear of acute infiltrate Heart is markedly enlarged
--- NOTE | 2023-08-11 17:31 | EDPHYS ---
Physician Documentation [facility] Name: Mellisa Patterson Age: 68 yrs Sex: Female : 1955 Arrival Date: 08/11/2023 Time: 15:45 Bed 17 Private MD: ED Physician Jeffrey Nolasco HPI: 08/11 16:23 This 68 yrs old Black Female presents to ER via EMS with complaints of FALL UNK , ON demetrius FLOOR UNKNOWN TIME,LEFT ARM AND LEG WEAKNESS. 16:23 FALL AT HOME , ON FLOOR UNK TIME, LEFT ARM AND LEG WEAKNESS. Details of fall: The [facility] patient fell from an upright position, while walking. Onset: The symptoms/episode began/occurred at 11:30. Associated injuries: The patient sustained no obvious injury. The patient presents to the emergency department with weakness of the left upper extremity, left lower extremity. Onset: The symptoms/episode began/occurred at an unknown time. Associated signs and symptoms: The patient has no apparent associated signs or symptoms. Patient's baseline: Neuro:. Historical: - Allergies: 16:03 insect venom; mb9 - Home Meds: 16:49 Albuterol Inhl [Active]; allopurinol 300 mg Oral tablet [Active]; amitriptyline 25 mg mb9 Oral tablet [Active]; aspirin 81 mg Oral capsule [Active]; atorvastatin 20 mg oral tablet [Active]; bumetanide 2 mg Oral tablet [Active]; carvedilol 25 mg oral tablet [Active]; digoxin 125 mcg (0.125 mg) Oral tablet [Active]; losartan 25 mg oral tablet [Active]; metolazone 2.5 mg oral tablet [Active]; Xarelto 20 mg oral tablet [Active]; sertraline 50 mg oral tablet [Active]; spironolactone 50 mg Oral tablet [Active]; - PMHx: 16:03 Asthma; Atrial Fib; Bronchitis; CHF; Gout; Hypertension; venous insufficiency; wounds; mb9 - Immunization history:: Adult Immunizations up to date. - Social history:: Smoking status: Patient denies any tobacco usage or history of. ROS: 16:26 Constitutional: Negative for fever, chills, and weight loss, Eyes: Negative for injury, demetrius pain, redness, and discharge, ENT: Negative for injury, pain, and discharge, Neck: Negative for injury, pain, and swelling, Cardiovascular: Negative for chest pain, palpitations, and edema, Respiratory: Negative for shortness of breath, cough, wheezing, and pleuritic chest pain, Abdomen/GI: Negative for abdominal pain, nausea, vomiting, diarrhea, and constipation, Back: Negative for injury and pain, : Negative for injury, bleeding, discharge, and swelling, Skin: Negative for injury, rash, and discoloration, Psych: Negative for depression, anxiety, suicide ideation, homicidal ideation, and hallucinations, Allergy/Immunology: Negative for hives, rash, and allergies, Endocrine: Negative for neck swelling, polydipsia, polyuria, polyphagia, and marked weight changes, Hematologic/Lymphatic: Negative for swollen nodes, abnormal bleeding, and unusual bruising, 16:26 MS/extremity: Positive for decreased range of motion, of the left arm and left leg, 16:26 Neuro: Positive for gait disturbance, weakness, of the left arm and left leg, Exam: 16:26 Constitutional: This is a well developed, well nourished patient who is awake, alert, demetrius and in no acute distress. Head/Face: Normocephalic, atraumatic. Eyes: Pupils equal round and reactive to light, extra-ocular motions intact. Lids and lashes normal. Conjunctiva and sclera are non-icteric and not injected. Cornea within normal limits. Periorbital areas with no swelling, redness, or edema. ENT: Nares patent. No nasal discharge, no septal abnormalities noted. Tympanic membranes are normal and external auditory canals are clear. Oropharynx with no redness, swelling, or masses, exudates, or evidence of obstruction, uvula midline. Mucous membranes moist. Neck: Trachea midline, no thyromegaly or masses palpated, and no cervical lymphadenopathy. Supple, full range of motion without nuchal rigidity, or vertebral point tenderness. No Meningismus. Chest/axilla: Normal chest wall appearance and motion. Nontender with no deformity. No lesions are appreciated. Cardiovascular: Regular rate and rhythm with a normal S1 and S2. No gallops, murmurs, or rubs. Normal PMI, no JVD. No pulse deficits. Respiratory: Lungs have equal breath sounds bilaterally, clear to auscultation and percussion. No rales, rhonchi or wheezes noted. No increased work of breathing, no retractions or nasal flaring. Abdomen/GI: Soft, non-tender, with normal bowel sounds. No distension or tympany. No guarding or rebound. No evidence of tenderness throughout. Back: No spinal tenderness. No costovertebral tenderness. Full range of motion. Skin: Warm, dry with normal turgor. Normal color with no rashes, no lesions, and no evidence of cellulitis. MS/ Extremity: Pulses equal, no cyanosis. Neurovascular intact. Full, normal range of motion. Psych: Awake, alert, with orientation to person, place and time. Behavior, mood, and affect are within normal limits. 16:26 Neuro: Orientation: is normal, appropriate for stated age, Mentation: slow to respond, Memory: is normal, appropriate for stated age, no acute changes, Cranial nerves: grossly normal, is grossly normal based on the patient's age, no acute changes, Cerebellar function: is grossly normal, is grossly normal based on the patient's age, no acute changes, Motor: moves all fours, Strength is 3/5 in the left arm and left leg, Gait: not tested. Deep tendon reflexes are 1 (trace) + in the bilateral brachioradialis, bicep, tricep and patellar and Achilles tendons, seizure activity, is not displayed by the patient, 17:32 ECG was reviewed by the Attending Physician. [facility] Vital Signs: 15:52 BP 118 / 99; Pulse 63; Resp 18; Temp 98; Pulse Ox 95% on R/A; Weight 111.13 kg; Height mb9 5 ft. 9 in. ; 16:53 BP 118 / 71; Pulse 70; Resp 18; Pulse Ox 94% on R/A; mb9 18:22 BP 127 / 95; Pulse 88; Resp 18; Pulse Ox 16% on R/A; mb9 19:15 BP 111 / 66; Pulse 76; Resp 15 S; Pulse Ox 98% on R/A; jw7 20:21 BP 132 / 92; Pulse 85; Resp 15 S; Pulse Ox 99% on R/A; jw7 15:52 Body Mass Index 36.18 (111.13 kg, 175.26 cm) 9 NIH Stroke Scale Scores: 15:55 NIHSS Score: 4 [facility] 16:26 NIHSS Score: 2 [facility] Jesus Coma Score: 16:26 Eye Response: spontaneous(4). Motor Response: obeys commands(6). Verbal Response: demetrius oriented(5). Total: 15. MDM: 16:13 Patient medically screened. demetrius 16:28 Differential Diagnosis altered mental status, sepsis, flu. Differential diagnosis: demetrius closed head injury, contusion, fracture, laceration, multiple trauma, sprain, strain. Data reviewed: vital signs, nurses notes, lab test result(s), EKG, radiologic studies, CT scan, MRI, plain films. Consideration of Admission/Observation Escalation of care including admission/observation considered. I considered the following discharge prescriptions or medication management in the emergency department Medications were administered in the Emergency Department. See MAR. Independent interpretation of the following test(s) in the Emergency Department EKG: See my EKG interpretation above. Test considered but Not performed: CT: CTA NOT DONE, CREAT 2 PLUS. Care significantly affected by the following chronic conditions: Hypertension, Congestive Heart Failure, Obesity, ASTHMA, A FIB, GOUT. 08/11 16:02 Order name: Basic Metabolic Panel; Complete Time: 17:21 [facility] 08/11 16:02 Order name: CBC with Diff; Complete Time: 17:21 [facility] 08/11 16:02 Order name: High Sensitivity Troponin; Complete Time: 17:21 [facility] 08/11 16:02 Order name: Protime (+inr); Complete Time: 17:21 [facility] 08/11 16:02 Order name: Ptt, Activated; Complete Time: 17:21 [facility] 08/11 16:05 Order name: Glucose, Ancillary Testing; Complete Time: 17:21 [facility] 08/11 16:15 Order name: LFT's; Complete Time: 17:21 [facility] 08/11 16:15 Order name: Magnesium; Complete Time: 17:21 [facility] 08/11 16:15 Order name: NT PRO-BNP; Complete Time: 17:21 [facility] 08/11 16:33 Order name: CBC Smear Scan; Complete Time: 17:21 [facility] 08/11 16:44 Order name: CREATININE WHOLE BLOOD; Complete Time: 17:21 [facility] 08/11 16:46 Order name: CREATININE WHOLE BLOOD [facility] 08/11 17:12 Order name: Manual Differential; Complete Time: 17:21 [facility] 08/11 19:26 Order name: CPK jw7 08/11 16:02 Order name: CT Stroke Brain w/o Contrast; Complete Time: 17:21 [facility] 08/11 16:02 Order name: Stroke CXR 1 View; Complete Time: 17:36 [facility] 08/11 17:35 Order name: Brain Wo Cont; Complete Time: 17:57 EDMS 08/11 17:57 Order name: Foot Left 3 View XRAY [facility] 08/11 16:02 Order name: EKG; Complete Time: 16:02 [facility] 08/11 16:02 Order name: Accucheck; Complete Time: 16:02 [facility] 08/11 16:02 Order name: Cardiac monitoring; Complete Time: 16:02 [facility] 08/11 16:02 Order name: EKG - Nurse/Tech; Complete Time: 16:28 [facility] 08/11 16:02 Order name: IV Saline Lock; Complete Time: 16:02 [facility] 08/11 16:02 Order name: Labs collected and sent; Complete Time: 16:46 [facility] 08/11 16:02 Order name: NPO; Complete Time: 16:02 [facility] 08/11 16:02 Order name: O2 Per Protocol; Complete Time: 16:02 [facility] 08/11 16:02 Order name: O2 Sat Monitoring; Complete Time: 16:02 [facility] 08/11 16:02 Order name: Stroke Swallow Screen; Complete Time: 16:46 [facility] 08/11 16:15 Order name: IV Saline Lock - Large Bore; Complete Time: 16:45 [facility] 08/11 17:25 Order name: Heller; Complete Time: 18:09 [facility] 08/11 17:57 Order name: Wound Care; Complete Time: 18:21 [facility] EC:32 Rate is 61 beats/min. Rhythm is irregularly irregular. QRS [place] is Normal. OK interval demetrius is prolonged. QRS interval is normal. QT interval is normal. No Q waves. T waves are Normal. No ST changes noted. Clinical impression: 2nd degree heart block and No evidence of ischemia. Interpreted by me. Reviewed by me. Administered Medications: 17:25 Discontinued: ns 0.9% 1000 ml IV at 1 bolus Per protocol; 1000 mL bolus demetrius 16:35 Drug: foLIC Acid IVPB 1 mg IVPB once Route: IVPB; Site: left antecubital; mb9 19:32 Follow up: Response: No adverse reaction; IV Status: Completed infusion; IV Intake: [id number] 16:40 Drug: NS 0.9% IV 1000 ml IV at 1 bolus Per protocol; 1000 mL bolus Route: IV; Rate: 1 mb9 bolus; Site: left antecubital; 19:31 Follow up: Response: No adverse reaction; IV Status: Order to discontinue infusion; IV jw7 Intake: 200ml 16:40 Drug: Pantoprazole IVP 40 mg IVP once Route: IVP; Site: left antecubital; mb9 16:45 Follow up: Response: No adverse reaction 9 17:40 Drug: Rocephin IV 1 grams IV at per protocol once; Given slow IV push per pharmarcy mb9 instructions Route: IV; Rate: per protocol; Site: left antecubital; 19:32 Follow up: Response: No adverse reaction; IV Status: Completed infusion; IV Intake: [id number] 17:45 Drug: Furosemide IVP 40 mg IVP once; give over 2 minutes Route: IVP; Site: left mb9 antecubital; 19:32 Follow up: Response: No adverse reaction jw7 18:21 Drug: Silver SulfADIAZINE Topical Cream 1 % 1 application Topical once Route: Topical; mb9 Site: affected area; 19:32 Follow up: Response: No adverse reaction jw7 18:38 Drug: vancoMYCIN IVPB 1 grams IVPB once over 2 hrs Route: IVPB; Infused Over: 2 hrs; mb9 Site: left antecubital; 20:22 Follow up: Response: No adverse reaction; IV Status: Infusion continued upon transfer; jw7 IV Intake: 200ml Disposition Summary: 08/11/23 17:30 Transfer Ordered Notes: Transfer Location: [facility] demetrius Reason: Higher level of care demetrius Condition: Serious demetrius Problem: new demetrius Symptoms: are unchanged demetrius Accepting Physician: TO [facility](08/11/23 20:23) jw7 Diagnosis - Cerebral infarction, unspecified - LEFT SIDE WEAKNESS demetrius - 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 Dysarthria (speech clarity - read or repeat words) - 0(Normal) 11. Extinction and Inattention (visual/tactile/auditory/spatial/personal) - 0(No abnormality) 1a. Level of Consciousness (LOC) - 0(Alert) 1b. Level of Consciousness (LOC) (Month \T\ Age) - 0(Both) 1c. LOC Commands (Open \T\ Closes Eyes/Buzzle Buffer) - 0(Both) 2. Best Gaze (Lateral Gaze Paresis) - 0(Normal) 3. Visual Field Loss - 0(No visual loss) 4. Facial Palsy - 0(Normal) 5a. Left Arm: Motor (10-second hold) - 1(Drift) 5b. Right Arm: Motor (10-second hold) - 0(No drift) 6a. Left Leg: Motor (5-second hold - always test supine) - (No drift) 6b. Right Leg: Motor (5-second hold - always test supine) - 3(No effort against gravity) 7. Limb Ataxia (finger/nose \T\ heel/rodriguez - test with eyes open) - 0(Absent) 8. Sensory Loss (pinprick arms/legs/face) - 0(Normal) 9. Best Language: Aphasia (description/naming/reading) - 0(No aphasia) Initials: mb9 NIH Stroke Scale - NIH Stroke Score Date: 08/11/2023 Time: 16:26 Total Score = 2 10. Dysarthria (speech clarity - read or repeat words) - 0(Normal) 11. Extinction and Inattention (visual/tactile/auditory/spatial/personal) - 0(No abnormality) 1a. Level of Consciousness (LOC) - 0(Alert) 1b. Level of Consciousness (LOC) (Month \T\ Age) - 0(Both) 1c. LOC Commands (Open \T\ Closes Eyes/Buzzle Buffer) - 0(Both) 2. Best Gaze (Lateral Gaze Paresis) - 0(Normal) 3. Visual Field Loss - 0(No visual loss) 4. Facial Palsy - 0(Normal) 5a. Left Arm: Motor (10-second hold) - 1(Drift) 5b. Right Arm: Motor (10-second hold) - 0(No drift) 6a. Left Leg: Motor (5-second hold - always test supine) - 1(Drift) 6b. Right Leg: Motor (5-second hold - always test supine) - 0(No drift) 7. Limb Ataxia (finger/nose \T\ heel/rodriguez - test with eyes open) - 0(Absent) 8. Sensory Loss (pinprick arms/legs/face) - 0(Normal) 9. Best Language: Aphasia (description/naming/reading) - 0(No aphasia) Initials: [facility] Signatures: Dispatcher [employer] Jeffrey Grossman MD MD cha Waits, Jodi RN RN jw7 Moira Starkey RN RN mb9 Corrections: (The following items were deleted from the chart) 17:35 16:15 MR STROKE PROTOCOL+MRI.RAD.BRZ ordered. EDMS EDMS 18:07 17:30 TO [facility] demetrius demetrius 20:23 18:07 TO [facility]7
--- NOTE | 2023-08-11 17:31 | ER ---
Nurse's Notes [facility] Name: Mellisa Patterson Age: 68 yrs Sex: Female : 1955 Arrival Date: 08/11/2023 Time: 15:45 Bed 17 Private MD: Diagnosis: Cerebral infarction, unspecified-LEFT SIDE WEAKNESS;Morbid (severe) obesity with alveolar hypoventilation;Acute kidney failure, unspecified;Elevated white blood cell count;Venous insufficiency (chronic) (peripheral)-LEFT LOWER EXTREMITY ULCERATION, CHRONIC Presentation: 08/11 15:52 Chief complaint: EMS states: "toned out for fall that occurred around 1130 this mb9 morning. Pt wasn't helped off ground until 1430 and family noticed left arm and leg drift and facial droop.". 15:52 Coronavirus screen: At this time, the client does not indicate any symptoms associated mb9 with coronavirus-19. Ebola Screen: No symptoms or risks identified at this time. Initial Sepsis Screen: Does the patient meet any 2 criteria? No. Patient's initial sepsis screen is negative. Does the patient have a suspected source of infection? No. Patient's initial sepsis screen is negative. Risk Assessment: Do you want to hurt yourself or someone else? Patient reports no desire to harm self or others. Onset of symptoms was August 11, 2023. 15:52 Method Of Arrival: EMS: [facility] mb9 15:52 Acuity: JESI 2 mb9 Triage Assessment: 15:55 General: Appears uncomfortable, Behavior is calm, cooperative. mb9 15:55 Pain: Denies pain. EENT: No signs and/or symptoms were reported regarding the EENT mb9 system. Neuro: Guzman Agitation-Sedation Scale (RASS): 0 - Alert and Calm Level of Consciousness is awake, alert, obeys commands, Oriented to person, place, time, situation, Appropriate for age Pig Furnace Operator are equal bilaterally Weakness in left leg(s) Gait is unsteady, Speech is normal, Facial symmetry appears normal, Pupils are PERRLA, Intact left arm and leg drift . Cardiovascular: Heart tones S1 S2 present Patient's skin is warm and dry. Respiratory: Airway is patent Respiratory effort is even, unlabored, Respiratory pattern is regular, symmetrical, Breath sounds are clear bilaterally. GI: Abdomen is round non-distended, Bowel sounds present X 4 quads. Abd is soft and non tender X 4 quads. Reports bloody stool. : No signs and/or symptoms were reported regarding the genitourinary system. Derm: Skin is pink, warm \\T\\ dry. Musculoskeletal: Range of motion: intact in all extremities. Historical: - Allergies: 16:03 insect venom; mb9 - Home Meds: 16:49 Albuterol Inhl [Active]; allopurinol 300 mg Oral tablet [Active]; amitriptyline 25 mg mb9 Oral tablet [Active]; aspirin 81 mg Oral capsule [Active]; atorvastatin 20 mg oral tablet [Active]; bumetanide 2 mg Oral tablet [Active]; carvedilol 25 mg oral tablet [Active]; digoxin 125 mcg (0.125 mg) Oral tablet [Active]; losartan 25 mg oral tablet [Active]; metolazone 2.5 mg oral tablet [Active]; Xarelto 20 mg oral tablet [Active]; sertraline 50 mg oral tablet [Active]; spironolactone 50 mg Oral tablet [Active]; - PMHx: 16:03 Asthma; Atrial Fib; Bronchitis; CHF; Gout; Hypertension; venous insufficiency; wounds; mb9 - Immunization history:: Adult Immunizations up to date. - Social history:: Smoking status: Patient denies any tobacco usage or history of. Screenin:08 [facility] ED Fall Risk Assessment (Adult) History of falling in the last 3 months, mb9 including since admission Yes- physiologic fall (2 pts) Confusion or Disorientation No (0 pts) Intoxicated or Sedated No (0 pts) Impaired Gait Yes (1 pt) Mobility Assist Device Used No (0 pt) Altered Elimination No (0 pt) Score/Fall Risk Level 3 or more points = High Risk Oriented to surroundings, Maintained a safe environment, Educated pt \\T\\ family on fall prevention, incl call for assistance when getting out of bed. Abuse screen: Denies threats or abuse. Nutritional screening: No deficits noted. Tuberculosis screening: No symptoms or risk factors identified. 16:20 Independence Swallow Protocol Exclusion Criteria: Exclusion Criteria Result: Proceed Brief mb9 Cognitive Screen What is your name? Normal, Where are you right now? Normal, What year is it? Normal. Oral Mechanism Examination Facial Symmetry: Normal, Motion: Normal, Lip Closure: Normal, Oral Mechanism Result: Normal. 3 oz Water Swallow Challenge: Pt able to drink all water without stopping, coughing, choking or throat clearing: Yes Result: PASS MD Notified: Jeffrey Nolasco MD. Assessment: 15:55 Reassessment: pt taken to CT via stretcher accompanied by nurse. mb9 16:30 Reassessment: No changes from previously documented assessment. Patient and/or family mb9 updated on plan of care and expected duration. Pain level reassessed. Patient is alert, oriented x 3, equal unlabored respirations, skin warm/dry/pink. 16:53 Reassessment: pt taken to MRI via stretcher. mb9 18:19 Reassessment: report given to JOSE LUIS Alfred. mb9 19:00 General: Appears in no apparent distress. comfortable, Behavior is calm, cooperative. jw7 Pain: Denies pain. Neuro: Guzman Agitation-Sedation Scale (RASS): 0 - Alert and Calm Level of Consciousness is awake, alert, obeys commands, Oriented to person, place, time, situation. Cardiovascular: Capillary refill < 3 seconds Clubbing of nail beds is absent JVD is absent Patient's skin is warm and dry. Respiratory: Airway is patent Trachea midline Respiratory effort is even, unlabored, Respiratory pattern is regular, symmetrical. GI: Abdomen is obese, Bowel sounds present X 4 quads. : No deficits noted. No signs and/or symptoms were reported regarding the genitourinary system. EENT: No deficits noted. No signs and/or symptoms were reported regarding the EENT system. Derm: Skin is intact, is healthy with good turgor, Skin is dry, Skin is normal, Skin temperature is warm. Musculoskeletal: Circulation, motion, and sensation intact. Range of motion: limited in left leg and left arm Reports weakness in left leg and left arm. 20:22 Reassessment: Patient appears in no apparent distress at this time. Patient and/or jw7 family updated on plan of care and expected duration. Pain level reassessed. Patient is alert, oriented x 3, equal unlabored respirations, skin warm/dry/pink. Vital Signs: 15:52 BP 118 / 99; Pulse 63; Resp 18; Temp 98; Pulse Ox 95% on R/A; Weight 111.13 kg; Height mb9 5 ft. 9 in. ; 16:53 BP 118 / 71; Pulse 70; Resp 18; Pulse Ox 94% on R/A; mb9 18:22 BP 127 / 95; Pulse 88; Resp 18; Pulse Ox 16% on R/A; mb9 19:15 BP 111 / 66; Pulse 76; Resp 15 S; Pulse Ox 98% on R/A; jw7 20:21 BP 132 / 92; Pulse 85; Resp 15 S; Pulse Ox 99% on R/A; jw7 15:52 Body Mass Index 36.18 (111.13 kg, 175.26 cm) mb9 Jesus Coma Score: 16:26 Eye Response: spontaneous(4). Motor Response: obeys commands(6). Verbal Response: demetrius oriented(5). Total: 15. NIH Stroke Scale Scores: 15:55 NIHSS Score: 4 mb9 16:26 NIHSS Score: 2 demetrius ED Course: 15:52 Patient arrived in ED. me1 15:52 Inserted saline lock: 20 gauge in left antecubital area, using aseptic technique. mb9 15:55 Placed in gown. Bed in low position. Call light in reach. Side rails up X 1. Client mb9 placed on continuous cardiac and pulse oximetry monitoring. NIBP monitoring applied. lunchroom monitor on. 15:57 Moira Starkey, RN is Primary Nurse. mb9 16:06 Triage completed. mb9 16:08 Arm band placed on. mb9 16:08 No provider procedures requiring assistance completed. mb9 16:09 CT Stroke Brain w/o Contrast In Process Unspecified. EDMS 16:13 Jeffrey Nolasco MD is Attending Physician. [facility] 16:20 EKG done, by ED staff, reviewed by Jeffrey Nolasco MD. mb9 16:28 LFT's Sent. mb9 16:28 Magnesium Sent. mb9 16:28 NT PRO-BNP Sent. mb9 17:07 Stroke CXR 1 View In Process Unspecified. EDMS 17:35 Brain Wo Cont In Process Unspecified. EDMS 18:18 Patient transferred, IV remains in place. mb9 18:49 pt accepted in transfer [facility] ER by dr Worthington admin approval given by Rachel Macias. 19:16 Foot Left 3 View XRAY In Process Unspecified. EDMS 19:25 Provided Education on: need for transfer. jw7 Administered Medications: 17:25 Discontinued: ns 0.9% 1000 ml IV at 1 bolus Per protocol; 1000 mL bolus demetrius 16:35 Drug: foLIC Acid IVPB 1 mg IVPB once Route: IVPB; Site: left antecubital; mb9 19:32 Follow up: Response: No adverse reaction; IV Status: Completed infusion; IV Intake: [id number] 16:40 Drug: NS 0.9% IV 1000 ml IV at 1 bolus Per protocol; 1000 mL bolus Route: IV; Rate: 1 mb9 bolus; Site: left antecubital; 19:31 Follow up: Response: No adverse reaction; IV Status: Order to discontinue infusion; IV jw7 Intake: 200ml 16:40 Drug: Pantoprazole IVP 40 mg IVP once Route: IVP; Site: left antecubital; mb9 16:45 Follow up: Response: No adverse reaction 9 17:40 Drug: Rocephin IV 1 grams IV at per protocol once; Given slow IV push per pharmarcy mb9 instructions Route: IV; Rate: per protocol; Site: left antecubital; 19:32 Follow up: Response: No adverse reaction; IV Status: Completed infusion; IV Intake: [id number] 17:45 Drug: Furosemide IVP 40 mg IVP once; give over 2 minutes Route: IVP; Site: left mb9 antecubital; 19:32 Follow up: Response: No adverse reaction jw7 18:21 Drug: Silver SulfADIAZINE Topical Cream 1 % 1 application Topical once Route: Topical; mb9 Site: affected area; 19:32 Follow up: Response: No adverse reaction jw7 18:38 Drug: vancoMYCIN IVPB 1 grams IVPB once over 2 hrs Route: IVPB; Infused Over: 2 hrs; mb9 Site: left antecubital; 20:22 Follow up: Response: No adverse reaction; IV Status: Infusion continued upon transfer; jw7 IV Intake: 200ml Medication: 16:09 VIS not applicable for this client. mb9 Intake: 19:31 IV: 200ml; Total: 200ml. jw7 19:32 IV: 50ml; Total: 250ml. jw7 19:32 IV: 10ml; Total: 260ml. jw7 20:22 IV: 200ml; Total: 460ml. jw7 Output: 20:21 Urine: 1000ml (Heller); Total: 1000ml. jw7 Outcome: 17:30 ER care complete, transfer ordered by MD. romo 18:19 Transferred by ground EMS [facility] completed. mb9 18:19 Condition: stable 18:19 Instructed on the need for transfer, 20:23 Patient left the ED. jw7 NIH Stroke Scale - NIH Stroke Score Date: 08/11/2023 Time: 15:55 Total Score = 4 10. Dysarthria (speech clarity - read or repeat words) - 0(Normal) 11. Extinction and Inattention (visual/tactile/auditory/spatial/personal) - 0(No abnormality) 1a. Level of Consciousness (LOC) - 0(Alert) 1b. Level of Consciousness (LOC) (Month \\T\\ Age) - 0(Both) 1c. LOC Commands (Open \\T\\ Closes Eyes/Lead Designer) - 0(Both) 2. Best Gaze (Lateral Gaze Paresis) - 0(Normal) 3. Visual Field Loss - 0(No visual loss) 4. Facial Palsy - 0(Normal) 5a. Left Arm: Motor (10-second hold) - 1(Drift) 5b. Right Arm: Motor (10-second hold) - 0(No drift) 6a. Left Leg: Motor (5-second hold - always test supine) - (No drift) 6b. Right Leg: Motor (5-second hold - always test supine) - 3(No effort against gravity) 7. Limb Ataxia (finger/nose \\T\\ heel/rodriguez - test with eyes open) - 0(Absent) 8. Sensory Loss (pinprick arms/legs/face) - 0(Normal) 9. Best Language: Aphasia (description/naming/reading) - 0(No aphasia) Initials: mb9 NIH Stroke Scale - NIH Stroke Score Date: 08/11/2023 Time: 16:26 Total Score = 2 10. Dysarthria (speech clarity - read or repeat words) - 0(Normal) 11. Extinction and Inattention (visual/tactile/auditory/spatial/personal) - 0(No abnormality) 1a. Level of Consciousness (LOC) - 0(Alert) 1b. Level of Consciousness (LOC) (Month \\T\\ Age) - 0(Both) 1c. LOC Commands (Open \\T\\ Closes Eyes/Lead Designer) - 0(Both) 2. Best Gaze (Lateral Gaze Paresis) - 0(Normal) 3. Visual Field Loss - 0(No visual loss) 4. Facial Palsy - 0(Normal) 5a. Left Arm: Motor (10-second hold) - 1(Drift) 5b. Right Arm: Motor (10-second hold) - 0(No drift) 6a. Left Leg: Motor (5-second hold - always test supine) - 1(Drift) 6b. Right Leg: Motor (5-second hold - always test supine) - 0(No drift) 7. Limb Ataxia (finger/nose \\T\\ heel/rodriguez - test with eyes open) - 0(Absent) 8. Sensory Loss (pinprick arms/legs/face) - 0(Normal) 9. Best Language: Aphasia (description/naming/reading) - 0(No aphasia) Initials: demetrius Signatures: Dispatcher [employer] Leeanne Pandey Corey, MD MD cha Waits, Jodi, RN RN jw7 Moira Starkey, RN RN mb9 Antonette Phillips RN RN me1
--- NOTE | 2023-08-11 17:45 | RAD REPORT ---
EXAM DESCRIPTION: MRI - Brain Wo Cont - 08/11/2023 5:34 pm COMPARISON: Head CT TECHNIQUE: Axial, sagittal, and coronal magnetic resonance images of the brain were obtained. FINDINGS: Images are degraded by patient motion artifact Mild to moderate signal within periventricular, deep and subcortical white matter probably ischemic c hanges secondary to small vessel disease Small lacunar infarct right caudate Diffusion-weighted/ADC mapping does not reveal evidence of acute infarction. The ventricles are normal caliber. An extra-axial fluid collection is not noted. Fluid within the sinuses/mastoids is not seen IMPRESSION: No acute intracranial abnormality noted
--- NOTE | 2023-08-11 19:26 | RAD REPORT ---
EXAM DESCRIPTION: RAD - Foot Left 3 View - 08/11/2023 7:14 pm CLINICAL HISTORY: Left Foot pain FINDINGS: No fracture or dislocation is seen. Osteoporosis. No bony destructive lesions seen
[2023-08-11 22:46] VITALS: BP 132/92; TEMP 98; O2SAT 99
--- NOTE | 2023-08-12 13:23 | EKG ---
Test Date: 2023-08-11 Test Time: 16:32:44 Video Production Specialist: JOSE CRUZ MEASUREMENT RESULTS: Intervals: Rate: 61 ND: QRSD: 120 QT: 488 QTc: 491 [place]: P: 81 ND: QRS: 75 T: -88 INTERPRETIVE STATEMENTS: Sinus tachycardia with 2nd degree AV block (Mobitz I) Low voltage QRS Abnormal ECG Compared to ECG 08/04/2023 17:32:25 Atrial flutter no longer present T-wave abnormality no longer present Prolonged QT interval no longer present Electronically Signed On 08-12-23 13:21:46 [employer] PROGRAMMER by Blake Raphael
== END ==
LOC: ER 15:45
DX: I63.9 Cerebral infarction, unspecified (principal); N17.9 Acute kidney failure, unspecified; D72.829 Elevated white blood cell count, unspecified; E66.2 Morbid (severe) obesity with alveolar hypoventilation; Z68.36 Body mass index [BMI] 36.0-36.9, adult; R29.704 NIHSS score 4; I87.2 Venous insufficiency (chronic) (peripheral); I10 Essential (primary) hypertension; I50.9 Heart failure, unspecified; I48.91 Unspecified atrial fibrillation; Z79.01 Long term (current) use of anticoagulants; Z79.82 Long term (current) use of aspirin; Z91.038 Other insect allergy status
CPT/HCPCS: 36415; 70450; 70551; 71045; 80048; 80076; 82550; 82565; 82947; 83735; 83880; 84484; 85025; 85610; 85730; 93005; C9113; J0696; J1940; J7030; J7050

== ENCOUNTER → 2023-09-29 | Emergency (ER) | payer OTHER, BC ==
[~2023-09-29] MED LIST changes: -CEFTRIAXONE 1000 MG/VIAL ONE; +DIPHENHYDRAMINE 50 MG/ML VIAL ONE; -FOLIC ACID 5 MG/ML VIAL ONE; -FUROSEMIDE 40 MG/4 ML VIAL ONE; +METOCLOPRAMIDE 10 MG/2mL INJ ONE; +MORPHINE 4 MG/ML SYR ONE; -NA CHLORIDE 0.9% 1,000 ML ONE; -NA CHLORIDE 0.9% 250 ML ONE; +NA CHLORIDE 0.9% 500 ML ONE; -PANTOPRAZOLE 40 MG INJ ONE; -VANCOMYCIN 1 GM/VIAL ONE
[2023-09-29 15:06] LABS: Absolute Eosinophils 0.1 K/uL (0-0.5); Absolute Lymphocytes (CBC) 0.8 K/uL (0.7-4.9); Absolute Monocytes 1.2 K/uL (0.1-1.3); Absolute Neutrophil 8.6 K/uL (1.8-8.0); Basophils % 0.1 % (0-1.3); Eosinophils % 1.4 % (0-4.4); Hematocrit 29.7 % (36.0-45.0); Hemoglobin 9.6 g/dL (12.0-15.0); Lymphocytes % 7.2 % (15.3-44.8); MCH 30.3 pg (27.0-35.0); MCHC 32.2 g/dL (32.0-36.0); MCV 94.1 fL (80-100); MPV 9.3 fL (7.6-11.3); Monocytes % 10.9 % (3.3-12.3); Neutrophils % 80.4 % (41.7-73.7); Nucleated Red Blood Cells % 0.3 % (0-0); Platelets 171 thou/uL (152-406); RBC Red Blood Cell Count 3.15 M/uL (3.86-4.86); Red Cell Distribution Width 16.6 % (12.1-15.2)
[2023-09-29 15:23] LABS: Anion Gap 9.1 mEq/L (5.0-15.0); Potassium 4.1 mEq/L (3.5-5.1); Troponin High Sensitivity 49.2 pg/mL (<58.9)
--- NOTE | 2023-09-29 15:36 | RAD REPORT ---
EXAM DESCRIPTION: [place] Single View09/29/2023 3:21 pm CLINICAL HISTORY: Shortness breath COMPARISON: July 2023 FINDINGS: Mild bilateral pulmonary opacities Heart is moderately to markedly enlarged IMPRESSION: Mild CHF
--- NOTE | 2023-09-29 17:22 | ER ---
Nurse's Notes [facility] Name: Mellisa Patterson Age: 68 yrs Sex: Female : 1955 Arrival Date: 09/29/2023 Time: 14:32 Bed 6 Private MD: Diagnosis: Chest pain, unspecified Presentation: 09/28 14:46 Chief complaint: Patient states: Chest tightness and SOB X 2 days. Pt SpO2 93% RA. ld1 Coronavirus screen: At this time, the client does not indicate any symptoms associated with coronavirus-19. Ebola Screen: No symptoms or risks identified at this time. Initial Sepsis Screen: Does the patient meet any 2 criteria? No. Patient's initial sepsis screen is negative. Does the patient have a suspected source of infection? No. Patient's initial sepsis screen is negative. Risk Assessment: Do you want to hurt yourself or someone else? Patient reports no desire to harm self or others. Onset of symptoms was September 29, 2023. 14:46 Method Of Arrival: Ambulatory ld1 14:46 Acuity: JESI 3 ld1 Triage Assessment: 14:47 General: Appears in no apparent distress. comfortable, Behavior is calm, cooperative, ld1 appropriate for age. Pain: Denies pain. EENT: No signs and/or symptoms were reported regarding the EENT system. Neuro: Level of Consciousness is awake, alert, obeys commands, Oriented to person, place, time, situation. Cardiovascular: Capillary refill < 3 seconds Patient's skin is warm and dry. Rhythm is sinus rhythm. Respiratory: Airway is patent Respiratory effort is even, unlabored. GI: Abdomen is round non-distended. : No signs and/or symptoms were reported regarding the genitourinary system. Derm: No signs and/or symptoms reported regarding the dermatologic system. Musculoskeletal: No signs and/or symptoms reported regarding the musculoskeletal system. Historical: - Allergies: 14:47 insect venom; ld1 - PMHx: 14:47 Atrial Fib; wounds; venous insufficiency; CHF; Asthma; Bronchitis; Gout; Hypertension; ld1 - Immunization history:: Adult Immunizations up to date. - Social history:: Smoking status: Patient denies any tobacco usage or history of. Patient/guardian denies using alcohol. Screenin:57 [facility] ED Fall Risk Assessment (Adult) History of falling in the last 3 months, rs5 including since admission No falls in past 3 months (0 pts) Confusion or Disorientation No (0 pts) Intoxicated or Sedated No (0 pts) Impaired Gait Yes (1 pt) Mobility Assist Device Used Yes (1 pt) Altered Elimination No (0 pt) Score/Fall Risk Level 0 - 2 = Low Risk Oriented to surroundings, Maintained a safe environment. Abuse screen: Denies threats or abuse. Nutritional screening: No deficits noted. Tuberculosis screening: No symptoms or risk factors identified. Assessment: 14:37 General: Appears in no apparent distress. uncomfortable, Behavior is cooperative. Pain: rs5 Complains of pain in head and chest Pain does not radiate. Pain currently is 8 out of 10 on a pain scale. Quality of pain is described as aching, Pain began Is continuous. Neuro: Level of Consciousness is awake, alert, obeys commands, Oriented to person, place, time, situation. Cardiovascular: Patient's skin is warm and dry. Rhythm is regular. Respiratory: Airway is patent Respiratory effort is even, unlabored, Respiratory pattern is regular, symmetrical. GI: Abdomen is round non-distended, Abd is soft and non tender. : No signs and/or symptoms were reported regarding the genitourinary system. EENT: No signs and/or symptoms were reported regarding the EENT system. Derm: Skin is intact, Skin is pink, warm \T\ dry. Musculoskeletal: Circulation, motion, and sensation intact. Range of motion: intact in all extremities. 15:55 Reassessment: No changes from previously documented assessment. rs5 16:34 Reassessment: Patient is alert, oriented x 3, equal unlabored respirations, skin rs5 warm/dry/pink. Patient is alert/active/playful, equal unlabored respirations, skin warm/dry/pink. Vital Signs: 14:40 BP 102 / 66; Pulse 83; Resp 18; Pulse Ox 99% on R/A; rs5 14:46 Pulse 85; Resp 22; Temp 98.1(TE); Pulse Ox 93% on R/A; Weight 115.21 kg; Height 5 ft. 7 ld1 in. ; Pain 0/10; 16:35 BP 100 / 68; Pulse 80; Resp 18; Pulse Ox 98% on R/A; rs5 14:46 Body Mass Index 39.78 (115.21 kg, 170.18 cm) ld1 14:46 Pain Scale: Adult ld1 ED Course: 14:34 Patient arrived in ED. mg5 14:35 Soto Guillen MD is Attending Physician. ec2 14:36 Justus Melton, JOSE LUIS is Primary Nurse. ll1 14:40 Patient has correct armband on for positive identification. Placed in gown. Bed in low rs5 position. Call light in reach. Side rails up X2. Client placed on continuous cardiac and pulse oximetry monitoring. NIBP monitoring applied. phototypesetting equipment monitor on. Pulse ox on. NIBP on. 14:40 No provider procedures requiring assistance completed. Patient maintains SpO2 rs5 saturation greater than 95% on room air. 14:45 Inserted saline lock: 20 gauge in right antecubital area, using aseptic technique. rs5 Blood collected. 14:47 Triage completed. ld1 14:47 Arm band placed on right wrist. ld1 14:59 Warm blanket given. jg11 14:59 EKG done. jg11 15:01 XRAY Chest (1 view) Sent. ll1 15:23 XRAY Chest (1 view) In Process Unspecified. EDMS 16:50 Troponin HS Sent. bp 16:52 EKG done, by ED staff, reviewed by Soto Guillen MD. bp Administered Medications: 15:12 Drug: NS 0.9% IV 500 ml IV at bolus once Route: IV; Rate: bolus; Site: right bp antecubital; 15:13 Drug: morphine IVP or IV 4 mg IVP once over 4 mins Route: IVP; Infused Over: 4 mins; bp Site: right antecubital; 15:13 Drug: metoCLOPramide IVP 10 mg IVP once; over 1 to 2 minutes Route: IVP; Site: right bp antecubital; 15:13 Drug: diphenhydrAMINE IVP 50 mg IVP once Route: IVP; Site: right antecubital; bp Medication: 16:36 VIS not applicable for this client. rs5 Outcome: 17:21 Discharge ordered by . ec2 18:18 Patient left the ED. rs5 Signatures: Dispatcher [employer] EDMS Babatunde Del Rio RN RN bp Justus Melton RN RN ll1 Brittany Ferrell RN RN ld1 Clayton Mora, RN RN rs5 Martha Herron mg5 Soto Guillen MD MD ec2 Cristhian Campbell jg11
--- NOTE | 2023-09-29 17:22 | EDPHYS ---
Physician Documentation [facility] Name: Mellisa Patterson Age: 68 yrs Sex: Female : 1955 Arrival Date: 09/29/2023 Time: 14:32 Bed 6 Private MD: ED Physician Soto Guillen HPI: 09/28 14:49 This 68 yrs old Black Female presents to ER via Ambulatory with complaints of Chest ec2 Tightness, Oxygen Level 77. 14:49 Patient arrives today for possible chest tightness. Patient with chronic issues ec2 including CHF, COPD. Patient has at home physical therapy who came today and had her oxygen level documented at 77%. No reported shortness of breath. Some occasional chest tightness ongoing for several months. No specific alleviating or exacerbating factors.. Historical: - Allergies: 14:47 insect venom; ld1 - PMHx: 14:47 Atrial Fib; wounds; venous insufficiency; CHF; Asthma; Bronchitis; Gout; Hypertension; ld1 - Immunization history:: Adult Immunizations up to date. - Social history:: Smoking status: Patient denies any tobacco usage or history of. Patient/guardian denies using alcohol. ROS: 14:49 Constitutional: as per hpi ec2 Exam: 14:49 Constitutional: GEN: NAD Head: atraumatic Eyes: EOMI Ears: External ears are ec2 normal. CV: regular rate LUNGS: no respiratory distress, no wheezes, no rales, no rhonchi ABD: non-distended, obese body habitus SKIN: Chronic skin changes of the bilateral lower extremities. Dressed wound in the left lower extremity. No cyanosis noted. MSK: no evidence of trauma NEURO: moves all extremities equally Vital Signs: 14:40 BP 102 / 66; Pulse 83; Resp 18; Pulse Ox 99% on R/A; rs5 14:46 Pulse 85; Resp 22; Temp 98.1(TE); Pulse Ox 93% on R/A; Weight 115.21 kg; Height 5 ft. 7 ld1 in. ; Pain 0/10; 16:35 BP 100 / 68; Pulse 80; Resp 18; Pulse Ox 98% on R/A; rs5 14:46 Body Mass Index 39.78 (115.21 kg, 170.18 cm) ld1 14:46 Pain Scale: Adult ld1 MDM: 14:48 Patient medically screened. ec2 14:49 Data reviewed: vital signs. ED course: Patient arrives today for evaluation of chest ec2 tightness and possible hypoxia. Examination remarkable for well-appearing nontoxic vigorous otherwise in no acute distress with a reassuring examination. Will obtain lab work, EKG, chest x-ray. Evaluate for ACS, volume overload, electrolyte disturbances, anemia . 15:41 ED course: Metabolic profile with renal dysfunction with creatinine 1.8 GFR of 31. CBC ec2 shows slight anemia. Troponin within normal ranges. Chest x-ray shows no acute intrathoracic process, CHF identified. Patient with oxygen's in the mid 90s with good waveform, obtain a repeat EKG and troponin at 2 hours.. 16:14 ED course: Patient does have occasional dips of oxygen into the 80s, she does have ec2 oxygen available to her at home that she is not using she does not want to.. 17:02 ED course: EKG independently reviewed and interpreted by me, shows normal sinus rhythm, ec2 rate of 81, no acute ST segment elevations, nonconcerning intervals.. 17:15 ED course: On reassessment patient reports marked improvement in her symptoms, asking ec2 for discharge. Currently pending troponin.. 09/28 14:48 Order name: Basic Metabolic Panel; Complete Time: 15:40 ec2 09/28 14:48 Order name: CBC with Diff; Complete Time: 15:40 ec2 09/28 14:48 Order name: Troponin HS; Complete Time: 15:40 ec2 09/28 16:45 Order name: Troponin HS; Complete Time: 17:21 ec2 09/28 14:48 Order name: XRAY Chest (1 view); Complete Time: 15:40 ec2 09/28 14:48 Order name: EKG; Complete Time: 14:49 ec2 09/28 14:48 Order name: Cardiac monitoring; Complete Time: 14:51 ec2 09/28 14:48 Order name: EKG - Nurse/Tech; Complete Time: 15:01 ec2 09/28 14:48 Order name: IV Saline Lock; Complete Time: 15:13 ec2 09/28 14:48 Order name: Labs collected and sent; Complete Time: 15:13 ec2 09/28 14:48 Order name: O2 Per Protocol; Complete Time: 14:51 ec2 09/28 14:48 Order name: O2 Sat Monitoring; Complete Time: 14:51 ec2 09/28 16:45 Order name: EKG - Nurse/Tech; Complete Time: 16:52 ec2 09/28 16:45 Order name: Misc. Order: repeat ekg and trop; Complete Time: 16:52 ec2 Administered Medications: 15:12 Drug: NS 0.9% IV 500 ml IV at bolus once Route: IV; Rate: bolus; Site: right bp antecubital; 15:13 Drug: morphine IVP or IV 4 mg IVP once over 4 mins Route: IVP; Infused Over: 4 mins; bp Site: right antecubital; 15:13 Drug: metoCLOPramide IVP 10 mg IVP once; over 1 to 2 minutes Route: IVP; Site: right bp antecubital; 15:13 Drug: diphenhydrAMINE IVP 50 mg IVP once Route: IVP; Site: right antecubital; bp Disposition Summary: 09/29/23 17:21 Discharge Ordered Notes: Location: Home ec2 Problem: chronic ec2 Symptoms: are unchanged ec2 Condition: Stable ec2 Diagnosis - Chest pain, unspecified ec2 Followup: ec2 - With: Private Physician - When: - Reason: Re-evaluation by your physician Discharge Instructions: - Discharge Summary Sheet ec2 - Nonspecific Chest Pain, Adult ec2 Forms: - Medication Reconciliation Form ec2 - Thank You Letter ec2 - Antibiotic Education ec2 - Prescription Opioid Use ec2 - Patient Portal Instructions ec2 - Leadership Thank You Letter ec2 Signatures: Dispatcher [employer] Babatunde Chan RN RN bp Brittany Ferrell RN RN ld1 Soto Guillen MD MD ec2
[2023-09-29 18:39] VITALS: BP 100/68; TEMP 98.1; O2SAT 98
--- NOTE | 2023-09-30 14:25 | EKG ---
Test Date: 2023-09-29 Test Time: 16:45:20 Food Services Manager: LUZMA MEASUREMENT RESULTS: Intervals: Rate: 81 MT: 196 QRSD: 104 QT: 398 QTc: 462 [place]: P: 73 MT: 196 QRS: 49 T: 125 INTERPRETIVE STATEMENTS: Normal sinus rhythm Low voltage QRS ST & T wave abnormality, consider lateral ischemia Abnormal ECG Compared to ECG 09/29/2023 14:38:07 Low QRS voltage now present Atrial fibrillation no longer present ST (T wave) deviation still present Possible ischemia still present Electronically Signed On 09-30-23 14:23:03 CDT by Blake Raphael
--- NOTE | 2023-09-30 14:25 | EKG ---
Test Date: 2023-09-29 Test Time: 14:38:07 Distillation Operator: ABRAHAM MEASUREMENT RESULTS: Intervals: Rate: 76 [place]: QRSD: 108 QT: 382 QTc: 429 Jack: P: [place]: QRS: 21 T: 172 INTERPRETIVE STATEMENTS: Atrial fibrillation ST & T wave abnormality, consider lateral ischemia Abnormal ECG Compared to ECG 08/11/2023 16:32:44 ST (T wave) deviation now present Possible ischemia now present Sinus tachycardia no longer present Electronically Signed On 09-30-23 14:23:11 CDT by Blake Raphael
== END ==
LOC: ER 14:32
DX: R07.89 Other chest pain (principal); I50.9 Heart failure, unspecified; J44.9 Chronic obstructive pulmonary disease, unspecified; I10 Essential (primary) hypertension; I48.91 Unspecified atrial fibrillation; Z91.038 Other insect allergy status
CPT/HCPCS: 85025; 80048; 36415; 84484 ×2; 71045; J2765; J1200; J7040; 93005

== ENCOUNTER 2023-10-16 11:48 | Inpatient (IN) | payer BC, OTHER ==
[2023-10-16 12:25] LABS: Absolute Eosinophils 0.2 K/uL (0-0.5); Absolute Lymphocytes (CBC) 1.2 K/uL (0.7-4.9); Absolute Monocytes 0.9 K/uL (0.1-1.3); Absolute Neutrophil 2.2 K/uL (1.8-8.0); Eosinophils % 3.6 % (0-4.4); Hematocrit 30.4 % (36.0-45.0); Hemoglobin 9.6 g/dL (12.0-15.0); Lymphocytes % 27.1 % (15.3-44.8); MCH 29.7 pg (27.0-35.0); MCHC 31.6 g/dL (32.0-36.0); MCV 93.8 fL (80-100); MPV 9.8 fL (7.6-11.3); Monocytes % 19.6 % (3.3-12.3); Neutrophils % 48.7 % (41.7-73.7); Nucleated Red Blood Cells % 0.1 % (0-0); Platelets 183 thou/uL (152-406); RBC Red Blood Cell Count 3.24 M/uL (3.86-4.86); Red Cell Distribution Width 17.9 % (12.1-15.2)
[2023-10-16 12:31] LABS: PT Prothrombin Time 12.7 SECONDS (9.5-12.5); Protime INR 1.16
--- NOTE | 2023-10-16 12:31 | RAD REPORT ---
EXAM DESCRIPTION: RAD - Chest Single View - 10/16/2023 12:23 pm CLINICAL HISTORY: SOB COMPARISON: Chest Single View dated 09/29/2023; Chest Single View dated 08/11/2023; Chest Single View dated 08/04/2023; Chest Pa And Lat (2 Views) dated 11/15/2022 FINDINGS: Lines: None. Lungs: Similar diffuse prominence of the pulmonary interstitium. Pleural: No significant pleural effusions or pneumothorax. Cardiac: Cardiomegaly . Mediastinum: Within normal limits. Bones: No acute fractures. Other: None IMPRESSION: Mild pulmonary edema/congestive heart failure suspected. This is similar to 09/29/2023.
[2023-10-16 12:44] LABS: Anion Gap 6.6 mEq/L (5.0-15.0); Lipase 27 U/L (13-75); NT PRO-BNP 2442 pg/mL (<125); Potassium 3.6 mEq/L (3.5-5.1)
[2023-10-16 12:47] LABS: Troponin High Sensitivity 67.2 pg/mL (<58.9)
--- NOTE | 2023-10-16 12:52 | RAD REPORT ---
EXAM DESCRIPTION: CT - Head C Spine Cap Cristopher Hendrix - 10/16/2023 12:33 pm CLINICAL HISTORY: Trauma, head and neck injury. Chest, abdomen and pelvis pain. Dizziness;Weakness COMPARISON: No comparisons TECHNIQUE: CT head without contrast. CT cervical spine without contrast with coronal and sagittal reformatted images. CT chest, abdomen and pelvis with coronal and sagittal reformatted images of the spine. All CT scans are performed using dose optimization technique as appropriate and may include automated exposure control or mA/KV adjustment according to patient size. FINDINGS: CT HEAD WITHOUT CONTRAST: No intracranial hemorrhage, hydrocephalus or extra-axial fluid collection. No acute large vascular te rritory infarct. The paranasal sinuses and mastoids are clear. The calvarium is intact. Motion artifact. CT CERVICAL SPINE WITHOUT CONTRAST: No fracture or subluxation. The prevertebral soft tissues are normal in thickness.Multilevel degenerative changes are present in the spine. CT CHEST, ABDOMEN, PELVIS: Thorax: Chest Wall: No abnormal mass Lungs: Motion artifact. Scattered bilateral linear opacities likely reflecting scarring and/or subseg mental atelectasis. In addition, there is likely hypoventilation. Pleura: No effusions or pneumothorax. Alana/Mediastinum: No lymphadenopathy. Aorta/Pulmonary Arteries: Enlarged pulmonary arteries suggesting pulmonary hypertension. Heart: Cardiomegaly. Mild coronary artery calcifications. Abdomen/Pelvis: Liver: No acute abnormality or suspicious lesions. Biliary: No biliary ductal dilatation. Stomach: No significant focal abnormality. Duodenum: No significant focal abnormality. Pancreas: No significant abnormality. Spleen: No significant abnormality. Adrenal: No suspicious lesions. Kidney/ureter: No hydronephrosis. Nonobstructing stone in left kidney. Retroperitoneum: No retroperitoneal adenopathy. Vascular: No aneurysm. Atherosclerosis. Bowel: No significant focal abnormality. Peritoneum: No ascites or free air. Bladder: Grossly unremarkable. Reproductive: No adnexal masses. Bones: No acute fracture. Other: n/a IMPRESSION: 1. No acute intracranial abnormality. 2. No acute fracture or traumatic malalignment of the cervical spine. 3. Probable hypoventilation with mild scarring or subsegmental atelectasis. No definite acute process . 4. No acute findings within the abdomen or pelvis.
[2023-10-16 13:15] LABS: Atypical Lymphocytes 1 %; Blood Morphology Comment NOTED (NOT SEEN); Differential Total Cells Count 100; Eosinophils 2 % (0-3); Lymphocytes 24 % (15-42); Monocytes 20 % (0-10); Platelet Estimate ADEQ; Segmented Neutrophils 52 % (40-80)
[2023-10-16 13:16] LABS: Anisocytosis 1+
--- NOTE | 2023-10-16 13:35 | ER ---
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 Oriented x hb 4 but very lethargic, falling asleep between questions, BP 79/45, HR 40-54, SpO2 93% on 2LNC, BGL 134, NS 300mls administered to 20G RAC. Coronavirus screen: At this time, the client does not indicate any symptoms associated with coronavirus-19. Ebola Screen: No symptoms or risks identified at this time. Initial Sepsis Screen: Does the patient meet any 2 criteria? Systolic BP < 90 mmHg. Mean Arterial Pressure (MAP) < 65. No. Patient's initial sepsis screen is negative. Does the patient have a suspected source of infection? No. Patient's initial sepsis screen is negative. Risk Assessment: Do you want to hurt yourself or someone else? Patient reports no desire to harm self or others. Onset of symptoms was October 16, 2023. 11:59 Method Of Arrival: EMS: [facility] hb 11:59 Acuity: JESI 2 hb Triage Assessment: 12:02 General: Appears in no apparent distress. Behavior is calm, cooperative. Pain: Denies hb pain. Neuro: Level of Consciousness is obeys commands, lethargic, Oriented to person, place, time, situation. Cardiovascular: Patient's skin is warm and dry. Respiratory: Respiratory effort is even, unlabored, Respiratory pattern is regular, symmetrical. Historical: - Allergies: 12:02 insect venom; hb - Home Meds: 13:29 allopurinol 300 mg oral tablet daily [Active]; amitriptyline 25 mg oral tablet hb [Active]; aspirin 81 mg oral tablet,chewable daily [Active]; atorvastatin 20 mg oral tablet daily [Active]; bumetanide 2 mg Oral tablet daily [Active]; carvedilol 25 mg oral tablet [Active]; digoxin 125 mcg (0.125 mg) Oral tablet [Active]; losartan 25 mg oral tablet [Active]; metolazone 2.5 mg oral tablet [Active]; Xarelto 20 mg oral tablet [Active]; sertraline 50 mg oral tablet [Active]; spironolactone 50 mg Oral tablet [Active]; - PMHx: 12:02 Asthma; Atrial Fib; Bronchitis; CHF; Gout; Hypertension; venous insufficiency; wounds; hb - Immunization history:: Adult Immunizations up to date. - Infectious Disease History:: Denies. - Social history:: Smoking status: Patient denies any tobacco usage or history of. - Family history:: not pertinent. Screenin:10 Abuse screen: No signs of abuse noted. aa5 12:10 [facility] ED Fall Risk Assessment (Adult) History of falling in the last 3 months, aa5 including since admission Yes- fall prone (multiple falls) (3 pts) Confusion or Disorientation Yes (5 pts) Intoxicated or Sedated No (0 pts) Impaired Gait Yes (1 pt) Mobility Assist Device Used Yes (1 pt) Altered Elimination No (0 pt) Score/Fall Risk Level 3 or more points = High Risk Oriented to surroundings, Maintained a safe environment, Educated pt \T\ family on fall prevention, incl call for assistance when getting out of bed. Nutritional screening: No deficits noted. Tuberculosis screening: No symptoms or risk factors identified. Assessment: 12:00 General: Behavior is calm, cooperative, Drowsy. Pain: Denies pain. Neuro: Level of aa5 Consciousness is confused, lethargic, Oriented to person, Driver Courier are weak bilaterally Moves all extremities. Weakness Speech is normal. Cardiovascular: Heart tones S1 S2 present Rhythm is regular. Respiratory: Airway is patent Respiratory effort is even, unlabored, Respiratory pattern is regular, symmetrical, Breath sounds are clear bilaterally. GI: Abdomen is round non-distended, Bowel sounds present X 4 quads. Abd is soft and non tender X 4 quads. : No signs and/or symptoms were reported regarding the genitourinary system. EENT: Oral mucosa is dry. Derm: Skin is dry, Skin is normal, Skin temperature is warm Wound dressing noted to left lower extremity (hx of chronic venous insufficiency wound). 13:00 Neuro: Level of Consciousness is lethargic, with eyes closed, easy to awaken to verbal aa5 stimuli. . Oriented to person, place, time, situation, Speech is normal. Respiratory: Airway is patent Respiratory effort is even, unlabored, Respiratory pattern is regular, symmetrical. Derm: Skin is dry, Skin is normal, Skin temperature is warm. 13:30 Neuro: Level of Consciousness is confused, lethargic, Oriented to person. Respiratory: aa5 Airway is patent Respiratory effort is even, unlabored, Respiratory pattern is regular, symmetrical. Derm: Skin is dry, Skin is normal, Skin temperature is warm. 13:30 Cardiovascular: Rhythm is sinus bradycardia. aa5 14:00 Neuro: Level of Consciousness is confused, lethargic, Oriented to person. Respiratory: aa5 Airway is patent Respiratory effort is even, unlabored, Respiratory pattern is regular, symmetrical. Derm: Skin is dry, Skin is normal, Skin temperature is warm. 14:24 Reassessment: Pt was assigned room 413, pending to be examined by hospitalist at this aa5 time, pt continues to be lethargic, confused at times, and BP remains borderline hypotension. Spoke to Haleigh Mayen NP and states she will come and examine pt soon. . 14:30 Reassessment: Pt being placed on Bi-PAP by RT. aa5 14:55 Reassessment: SHERRON Palma and Dr. Ashley at bedside (hospitalist team). aa5 15:00 Reassessment: Pt refusing bi-pap, pt placed back on O2 via NC at 2L, hospitalist aware. aa5 . 15:00 Neuro: Level of Consciousness is awake, alert, obeys commands, Oriented to person, aa5 place, time, situation. Respiratory: Airway is patent Respiratory effort is even, unlabored, Respiratory pattern is regular, symmetrical. Derm: Skin is dry, Skin is normal, Skin temperature is warm. 15:00 Reassessment: Pt now awaiting ICU bed assignment per Dr. Ashley. . aa5 15:15 Reassessment: Pt sitting up in bed, awake and alert x 4, holding a conversation with aa5 family. . Vital Signs: 11:59 BP 87 / 42; Pulse 53; Resp 17; Temp 97.7(TE); Pulse Ox 92% on 2 lpm NC; Weight 122 kg; hb Height 5 ft. 7 in. ; Pain 0/10; 12:06 BP 107 / 92; Pulse 58; Resp 18 S; Pulse Ox 95% on 2 lpm NC; aa5 12:10 BP 117 / 70; Pulse 57; Resp 18 S; Pulse Ox 97% on 2 lpm NC; aa5 12:15 BP 102 / 77; Pulse 58; Resp 18 S; Pulse Ox 97% on 2 lpm NC; aa5 12:20 BP 102 / 69; Pulse 47; Resp 18 S; Pulse Ox 97% on 2 lpm NC; aa5 12:52 BP 96 / 66; Pulse 43; Resp 19 S; Pulse Ox 96% on 2 lpm NC; aa5 13:10 BP 102 / 76; Pulse 43; Resp 16 S; Pulse Ox 97% on 2 lpm NC; aa5 13:20 BP 97 / 67; Pulse 43; Resp 20 S; Pulse Ox 96% on 2 lpm NC; aa5 13:30 BP 103 / 70; Pulse 54; Resp 20 S; Pulse Ox 95% on 2 lpm NC; aa5 14:00 BP 96 / 66; Pulse 44; Resp 18 S; Pulse Ox 95% on 2 lpm NC; aa5 14:15 BP 92 / 63; Pulse 42; Resp 19 S; Pulse Ox 96% on 2 lpm NC; aa5 14:45 BP 108 / 76; Pulse 92; Resp 20 S; Pulse Ox 98% on 2 lpm NC; aa5 15:15 BP 105 / 79; Pulse 56; Resp 16 S; Temp 97.8(TE); Pulse Ox 97% on 2 lpm NC; aa5 15:45 BP 112 / 84; Pulse 66; Resp 19 S; Pulse Ox 95% on 2 lpm NC; aa5 11:59 Body Mass Index 42.13 (122.00 kg, 170.18 cm) hb 11:59 Pain Scale: Adult hb Jesus Coma Score: 13:26 Eye Response: spontaneous(4). Motor Response: obeys commands(6). Verbal Response: demetrius oriented(5). Total: 15. NIH Stroke Scale Scores: 13:26 NIHSS Score: 0 demetrius ED Course: 11:57 Patient arrived in ED. hb 11:57 Jeffrey Nolasco MD is Attending Physician. demetrius 12:00 Arm band placed on. aa5 12:00 Patient has correct armband on for positive identification. Placed in gown. Bed in low aa5 position. Call light in reach. Side rails up X2. Client placed on continuous cardiac and pulse oximetry monitoring. NIBP monitoring applied. monitor technician on. 12:02 Maryan Lowe RN is Primary Nurse. aa5 12:02 Triage completed. hb 12:05 EKG done, by ED staff, reviewed by Jeffrey Nolasco MD. hb 12:05 Thermoregulation: warm blanket given to patient. hb 12:25 XRAY Chest (1 view) In Process Unspecified. EDMS 12:34 CT Traumagram (Head C Spine CAP wo con) In Process Unspecified. EDMS 13:32 Megan Ashley MD is Hospitalizing Provider. demetrius 13:50 Shoulder Left (2 View) XRAY In Process Unspecified. EDMS 14:00 Heller cath inserted, using sterile technique, 16 Fr., by ky, balloon inflated, to aa5 gravity drainage. 15:11 Urine collected: Heller catheter specimen, clear, jos colored. [id number] 16:00 No provider procedures requiring assistance completed. Patient admitted, IV remains in aa5 place. Administered Medications: 12:10 Drug: NS 0.9% IV 500 ml IV at bolus once Route: IV; Rate: bolus; Site: right wrist; aa5 13:00 Follow up: IV Status: Completed infusion; IV Intake: 500ml aa5 12:18 Not Given (Duplicate Order): ns 0.9% 1000 ml IV at 125 ml/hr continuous hb 15:10 Not Given (Physician Discretion): ns 0.9% 1000 ml IV at 125 ml/hr continuous aa5 Medication: 14:32 VIS not applicable for this client. aa5 Intake: 13:00 IV: 500ml; Total: 500ml. aa5 Outcome: 13:34 Decision to Hospitalize by Provider. demetrius 16:00 Admitted to ICU accompanied by nurse, family with patient, via stretcher, with oxygen, aa5 on monitor, with chart, Report called to JOSE LUIS Dias 16:00 Condition: stable 16:00 Discharge instructions given to patient, family, Instructed on the need for admit, Demonstrated understanding of instructions, 16:05 Patient left the ED. [email or web address] NIH Stroke Scale - NIH Stroke Score Date: 10/16/2023 Time: 13:26 Total Score = 0 10. Dysarthria (speech clarity - read or repeat words) - 0(Normal) 11. Extinction and Inattention (visual/tactile/auditory/spatial/personal) - 0(No abnormality) 1a. Level of Consciousness (LOC) - 0(Alert) 1b. Level of Consciousness (LOC) (Month \T\ Age) - 0(Both) 1c. LOC Commands (Open \T\ Closes Eyes/Window Tinter) - 0(Both) 2. Best Gaze (Lateral Gaze Paresis) - 0(Normal) 3. Visual Field Loss - 0(No visual loss) 4. Facial Palsy - 0(Normal) 5a. Left Arm: Motor (10-second hold) - 0(No drift) 5b. Right Arm: Motor (10-second hold) - 0(No drift) 6a. Left Leg: Motor (5-second hold - always test supine) - 0(No drift) 6b. Right Leg: Motor (5-second hold - always test supine) - 0(No drift) 7. Limb Ataxia (finger/nose \T\ heel/rodriguez - test with eyes open) - 0(Absent) 8. Sensory Loss (pinprick arms/legs/face) - 0(Normal) 9. Best Language: Aphasia (description/naming/reading) - 0(No aphasia) Initials: demetrius Signatures: Dispatcher [employer] EDJeffrey Russell MD MD cha Calderon, Audri RN RN aa5 Alexus Coppola RN RN hb Gonzalez, Jordan [email or web address] Corrections: (The following items were deleted from the chart) 14:15 12:02 Arm band placed on hb aa5 14:15 12:04 Client placed on continuous cardiac and pulse oximetry monitoring. NIBP aa5 monitoring applied. monitor technician on. Pulse ox on. NIBP on. hb 14:32 12:00 Respiratory: Airway is patent Respiratory effort is even, unlabored, aa5 Respiratory pattern is regular, symmetrical, aa5
--- NOTE | 2023-10-16 13:35 | EDPHYS ---
Physician Documentation [facility] Name: Mellisa Patterson Age: 68 yrs Sex: Female : 1955 Arrival Date: 10/16/2023 Time: 11:48 Bed 4 Private MD: ED Physician Jeffrey Nolasco HPI: 10/15 13:26 This 68 yrs old Black Female presents to ER via EMS with complaints of Blood Pressure demetrius Problem, Dizziness, Lethargy. 13:26 The patient presents with dizziness, feeling faint, generalized weakness. Onset: The demetrius symptoms/episode began/occurred 3 day(s) ago. Context: occurred at home. Modifying factors: The symptoms are alleviated by lying down, the symptoms are aggravated by standing up, changing position. Associated signs and symptoms: Pertinent positives: near-syncope. Severity of symptoms: At their worst the symptoms were mild moderate in the emergency department the symptoms are unchanged. Patient's baseline: Neuro: alert and fully oriented. It is unknown whether or not the patient has had similar symptoms in the past. Historical: - Allergies: 12:02 insect venom; hb - Home Meds: 13:29 allopurinol 300 mg oral tablet daily [Active]; amitriptyline 25 mg oral tablet hb [Active]; aspirin 81 mg oral tablet,chewable daily [Active]; atorvastatin 20 mg oral tablet daily [Active]; bumetanide 2 mg Oral tablet daily [Active]; carvedilol 25 mg oral tablet [Active]; digoxin 125 mcg (0.125 mg) Oral tablet [Active]; losartan 25 mg oral tablet [Active]; metolazone 2.5 mg oral tablet [Active]; Xarelto 20 mg oral tablet [Active]; sertraline 50 mg oral tablet [Active]; spironolactone 50 mg Oral tablet [Active]; - PMHx: 12:02 Asthma; Atrial Fib; Bronchitis; CHF; Gout; Hypertension; venous insufficiency; wounds; hb - Immunization history:: Adult Immunizations up to date. - Infectious Disease History:: Denies. - Social history:: Smoking status: Patient denies any tobacco usage or history of. - Family history:: not pertinent. ROS: 13:26 Constitutional: Negative for fever, chills, and weight loss, Eyes: Negative for injury, demetrius pain, redness, and discharge, ENT: Negative for injury, pain, and discharge, Neck: Negative for injury, pain, and swelling, Cardiovascular: Negative for chest pain, palpitations, and edema, Respiratory: Negative for shortness of breath, cough, wheezing, and pleuritic chest pain, Abdomen/GI: Negative for abdominal pain, nausea, vomiting, diarrhea, and constipation, Back: Negative for injury and pain, : Negative for injury, bleeding, discharge, and swelling, MS/Extremity: Negative for injury and deformity, Skin: Negative for injury, rash, and discoloration, Psych: Negative for depression, anxiety, suicide ideation, homicidal ideation, and hallucinations, Allergy/Immunology: Negative for hives, rash, and allergies, Endocrine: Negative for neck swelling, polydipsia, polyuria, polyphagia, and marked weight changes, 13:26 Neuro: Positive for dizziness, near syncope, weakness, Exam: 13:26 Constitutional: This is a well developed, well nourished patient who is awake, alert, demetrius and in no acute distress. Head/Face: Normocephalic, atraumatic. Eyes: Pupils equal round and reactive to light, extra-ocular motions intact. Lids and lashes normal. Conjunctiva and sclera are non-icteric and not injected. Cornea within normal limits. Periorbital areas with no swelling, redness, or edema. ENT: Nares patent. No nasal discharge, no septal abnormalities noted. Tympanic membranes are normal and external auditory canals are clear. Oropharynx with no redness, swelling, or masses, exudates, or evidence of obstruction, uvula midline. Mucous membranes moist. Neck: Trachea midline, no thyromegaly or masses palpated, and no cervical lymphadenopathy. Supple, full range of motion without nuchal rigidity, or vertebral point tenderness. No Meningismus. Chest/axilla: Normal chest wall appearance and motion. Nontender with no deformity. No lesions are appreciated. Cardiovascular: Regular rate and rhythm with a normal S1 and S2. No gallops, murmurs, or rubs. Normal PMI, no JVD. No pulse deficits. Respiratory: Lungs have equal breath sounds bilaterally, clear to auscultation and percussion. No rales, rhonchi or wheezes noted. No increased work of breathing, no retractions or nasal flaring. Abdomen/GI: Soft, non-tender, with normal bowel sounds. No distension or tympany. No guarding or rebound. No evidence of tenderness throughout. Back: No spinal tenderness. No costovertebral tenderness. Full range of motion. Skin: Warm, dry with normal turgor. Normal color with no rashes, no lesions, and no evidence of cellulitis. MS/ Extremity: Pulses equal, no cyanosis. Neurovascular intact. Full, normal range of motion. Psych: Awake, alert, with orientation to person, place and time. Behavior, mood, and affect are within normal limits. 13:26 ECG was reviewed by the Attending Physician. Vital Signs: 11:59 BP 87 / 42; Pulse 53; Resp 17; Temp 97.7(TE); Pulse Ox 92% on 2 lpm NC; Weight 122 kg; hb Height 5 ft. 7 in. ; Pain 0/10; 12:06 BP 107 / 92; Pulse 58; Resp 18 S; Pulse Ox 95% on 2 lpm NC; aa5 12:10 BP 117 / 70; Pulse 57; Resp 18 S; Pulse Ox 97% on 2 lpm NC; aa5 12:15 BP 102 / 77; Pulse 58; Resp 18 S; Pulse Ox 97% on 2 lpm NC; aa5 12:20 BP 102 / 69; Pulse 47; Resp 18 S; Pulse Ox 97% on 2 lpm NC; aa5 12:52 BP 96 / 66; Pulse 43; Resp 19 S; Pulse Ox 96% on 2 lpm NC; aa5 13:10 BP 102 / 76; Pulse 43; Resp 16 S; Pulse Ox 97% on 2 lpm NC; aa5 13:20 BP 97 / 67; Pulse 43; Resp 20 S; Pulse Ox 96% on 2 lpm NC; aa5 13:30 BP 103 / 70; Pulse 54; Resp 20 S; Pulse Ox 95% on 2 lpm NC; aa5 14:00 BP 96 / 66; Pulse 44; Resp 18 S; Pulse Ox 95% on 2 lpm NC; aa5 14:15 BP 92 / 63; Pulse 42; Resp 19 S; Pulse Ox 96% on 2 lpm NC; aa5 14:45 BP 108 / 76; Pulse 92; Resp 20 S; Pulse Ox 98% on 2 lpm NC; aa5 15:15 BP 105 / 79; Pulse 56; Resp 16 S; Temp 97.8(TE); Pulse Ox 97% on 2 lpm NC; aa5 15:45 BP 112 / 84; Pulse 66; Resp 19 S; Pulse Ox 95% on 2 lpm NC; aa5 11:59 Body Mass Index 42.13 (122.00 kg, 170.18 cm) hb 11:59 Pain Scale: Adult hb NIH Stroke Scale Scores: 13:26 NIHSS Score: 0 demetrius [place] Coma Score: 13:26 Eye Response: spontaneous(4). Motor Response: obeys commands(6). Verbal Response: demetrius oriented(5). Total: 15. MDM: 11:57 Patient medically screened. demetrius 13:30 Differential diagnosis: cardiac arrhythmia, CVA, generalized weakness, GI bleed, demetrius hypovolemia, idiopathic dizziness, near-syncope, , sepsis, TIA, vertigo. Data reviewed: vital signs, nurses notes, EMS record, lab test result(s), EKG, radiologic studies, CT scan, plain films. Consideration of Admission/Observation Patient was admitted/placed on observation. Escalation of care including admission/observation considered. I considered the following discharge prescriptions or medication management in the emergency department Medications were administered in the Emergency Department. See MAR. Independent interpretation of the following test(s) in the Emergency Department EKG: See my EKG interpretation above. Test considered but Not performed: Ultrasound no 2 d echo. Historians other than the Patient: EMS: ems well informed. Care significantly affected by the following chronic conditions: Hypertension, Congestive Heart Failure, Obesity. Counseling: I had a detailed discussion with the patient and/or guardian regarding the historical points, exam findings, and any diagnostic results supporting the discharge/admit diagnosis, lab results, radiology results, the need for further work-up and treatment in the hospital. 10/15 12:02 Order name: Basic Metabolic Panel; Complete Time: 13:03 [facility] 10/15 12:02 Order name: CBC with Diff; Complete Time: 13:26 [facility] 10/15 12:02 Order name: Troponin HS; Complete Time: 13: [facility] 10/15 12:10 Order name: PT-INR; Complete Time: 13:03 [facility] 10/15 12:10 Order name: BNP; Complete Time: 13:03 [facility] 10/15 12:10 Order name: Blood Culture Adult (2) [facility] 10/15 12:10 Order name: Lactate w/ 2H reflex if indic.; Complete Time: 13:26 [facility] 10/15 12:10 Order name: Lipase; Complete Time: 13:03 [facility] 10/15 13:11 Order name: ABG [facility] 10/15 13:11 Order name: Urinalysis w/ reflexes [facility] 10/15 13:16 Order name: Manual Differential; Complete Time: 13:26 EDMS 10/15 13:26 Order name: Digoxin; Complete Time: 14:45 [facility] 10/15 12:02 Order name: XRAY Chest (1 view); Complete Time: 13:03 [facility] 10/15 12:13 Order name: CT Traumagram (Head C Spine CAP wo con); Complete Time: 13:03 [facility] 10/15 13:13 Order name: Shoulder Left (2 View) XRAY; Complete Time: 14:45 [facility] 10/15 12:02 Order name: EKG; Complete Time: 12:02 [facility] 10/15 12:02 Order name: Cardiac monitoring; Complete Time: 12:02 [facility] 10/15 12:02 Order name: EKG - Nurse/Tech; Complete Time: 12:02 [facility] 10/15 12:02 Order name: IV Saline Lock; Complete Time: 12:02 [facility] 10/15 12:02 Order name: Labs collected and sent; Complete Time: 12:02 [facility] 10/15 12:02 Order name: O2 Per Protocol; Complete Time: 12:02 [facility] 10/15 12:02 Order name: O2 Sat Monitoring; Complete Time: 12:02 [facility] 10/15 12:10 Order name: IV Saline Lock - Large Bore; Complete Time: 12:20 [facility] 10/15 12:13 Order name: Heller; Complete Time: 14:14 [facility] EC:26 Rate is 58 beats/min. Rhythm is regular. QRS [place] is Normal. GA interval is normal. QRS demetrius interval is normal. QT interval is normal. No Q waves. T waves are Normal. No ST changes noted. Clinical impression: 1st degree heart block, Sinus bradycardia, and No evidence of ischemia. Interpreted by me. Reviewed by me. Administered Medications: 12:10 Drug: NS 0.9% IV 500 ml IV at bolus once Route: IV; Rate: bolus; Site: right wrist; aa5 13:00 Follow up: IV Status: Completed infusion; IV Intake: 500ml aa5 12:18 Not Given (Duplicate Order): ns 0.9% 1000 ml IV at 125 ml/hr continuous hb 15:10 Not Given (Physician Discretion): ns 0.9% 1000 ml IV at 125 ml/hr continuous aa5 Disposition Summary: 10/16/23 13:34 Hospitalization Ordered Notes: Hospitalization Status: Inpatient Admission demetrius Provider: Megan Ashley cha Condition: Stable demetrius Problem: new demetrius Symptoms: have improved demetrius Bed/Room Type: Standard demetrius Location: Intensive Care Unit(10/16/23 15:42) [facility] [place]ignment: 3-(10/16/23 15:42) [facility] [place] Diagnosis - History of falling demetrius - Fall on same level, unspecified demetrius - Weakness demetrius - Syncope Near demetrius - Unspecified kidney failure demetrius - Anemia, unspecified demetrius - FPC (current) use of anticoagulants demetrius - Chronic atrial fibrillation demetrius - Non ST elevation [place] - elevated TROPONIN demetrius - Chronic combined systolic (congestive) and diastolic (congestive) heart failure demetrius - Acute and chronic respiratory failure with hypercapnia demetrius Forms: - Medication Reconciliation Form demetrius - SBAR form demetrius - Leadership Thank You Letter [facility] NIH Stroke Scale - NIH Stroke Score Date: 10/16/2023 Time: 13:26 Total Score = 0 10. Dysarthria (speech clarity - read or repeat words) - 0(Normal) 11. Extinction and Inattention (visual/tactile/auditory/spatial/personal) - 0(No abnormality) 1a. Level of Consciousness (LOC) - 0(Alert) 1b. Level of Consciousness (LOC) (Month \T\ Age) - 0(Both) 1c. LOC Commands (Open \T\ Closes Eyes/Newspaper Vendor) - 0(Both) 2. Best Gaze (Lateral Gaze Paresis) - 0(Normal) 3. Visual Field Loss - 0(No visual loss) 4. Facial Palsy - 0(Normal) 5a. Left Arm: Motor (10-second hold) - 0(No drift) 5b. Right Arm: Motor (10-second hold) - 0(No drift) 6a. Left Leg: Motor (5-second hold - always test supine) - 0(No drift) 6b. Right Leg: Motor (5-second hold - always test supine) - 0(No drift) 7. Limb Ataxia (finger/nose \T\ heel/rodriguez - test with eyes open) - 0(Absent) 8. Sensory Loss (pinprick arms/legs/face) - 0(Normal) 9. Best Language: Aphasia (description/naming/reading) - 0(No aphasia) Initials: [facility] Signatures: Dispatcher [employer] EDMS Jeffrey Nolasco MD MD cha Calderon, Audri, RN RN aa5 Alexus Coppola, RN RN Latrice Ebony mc5 Corrections: (The following items were deleted from the chart) 12:11 12:11 PROTIME (+INR)+COAG.LAB.BRZ ordered. EDMS EDMS 12:11 12:11 PROBNP+C.LAB.BRZ ordered. EDMS EDMS 12:11 12:11 BLOOD CULTURE*+BA.LAB.BRZ ordered. EDMS EDMS 12:11 12:11 LACTATE+C.LAB.BRZ ordered. EDMS EDMS 12:11 12:11 LIPASE+C.LAB.BRZ ordered. EDMS EDMS 12:13 12:13 Head C Spine Cap Wo Con+CT.RAD.BRZ ordered. EDMS EDMS 12:27 12:10 IV Saline Lock - Large Bore ordered. [place] [id number] 13:11 13:11 BiPap ([employer] Only)+RC.RAD.BRZ ordered. EDMS EDMS 13:11 13:11 Urinalysis+U.LAB.BRZ ordered. EDMS EDMS 13:14 13:14 Shoulder Left 2 View+RAD.RAD.BRZ ordered. EDMS EDMS 13:26 13:26 DIGOXIN+C.LAB.BRZ ordered. EDMS EDMS 14:03 13:34 [place] [id number] 15:19 14:[address] [place] [address] 15:42 13:34 Telemetry/MedSurg (Inpatient) [place] [id number] 15:42 15:19 [place] [id number]
--- NOTE | 2023-10-16 13:57 | RAD REPORT ---
EXAM DESCRIPTION: RAD - Shoulder Left 2 View - 10/16/2023 1:49 pm CLINICAL HISTORY: PAIN COMPARISON: No comparisons FINDINGS/IMPRESSION: No acute fracture. No malalignment. Mild left AC joint degenerative changes . M ild left glenohumeral joint degenerative changes.
[2023-10-16 14:04] LABS: Arterial Blood Carboxyhemoglob 3.1 % (0-1.5); Blood Gas Oxyhemoglobin 85.5 % (94-97); Blood Gas THB 10.2 g/dl (12-18); Blood O2 Saturation 89.5 % (92-98.5)
--- NOTE | 2023-10-16 14:15 | P.HP ---
Certification for Inpatient Patient admitted to: Inpatient With expected LOS: <2 Midnights Practitioner: I am a practitioner with admitting privileges, knowledge of patient current condition, hospital course, and medical plan of care. Services: Services provided to patient in accordance with Admission requirements found in Title 42 Section 412.3 of the Code of Federal Regulations Patient History Date of Service: 10/16/23 Reason for admission: near syncope History of Present Illness: 68-year-old female with a history of chronic A-fib on Xarelto, diastolic heart failure, nonobstructive CAD [cath 03/02], COPD and BEATRICE on CPAP, venous stasis wounds and morbid obesity presents to the emergency room for dizziness, generalized weakness, falls, that is progressively getting worse. Family at bedside is primary historian reports she has had 4 falls today. She reports symptoms started 3 days ago. She reports symtoms worse with standing, laying flat or changing position. She reports feeling faint. HPI is limited due to patient's lethargy, Plan to admit to ICU for metabolic encephalopathy, acute on chronic heart admit for dizziness, near syncope. orthostatic hypotension. BP 87 / 42; Pulse 53; Resp 17; Temp 97.7(TE); Pulse Ox 92% on 2 lpm NC; Weight 122 kg; Height 5 ft. 7 in. ; Pain 0/10; GCS 15 6 Eye Response: spontaneous(4). Motor Response: obeys commands(6). Verbal Response: oriented(5). Total: 15. EKG Rate is 58 beats/min. Rhythm is regular. QRS [place] is Normal. [place] interval is normal. QRS interval is normal. QT interval is normal. No Q waves. T waves are Normal. No ST changes noted. Clinical impression: 1st degree heart block, Sinus bradycardia, and No evidence of ischemia Allergies insect venom Adverse Reaction (Verified 05/25/19 00:45) Anaphylaxis Home Medications: Amiodarone HCl [Cordarone*] 200 mg PO DAILY 05/25/19 Cholecalciferol (Vitamin D3) [Vitamin D3] 1,000 unit PO BID 05/25/19 Magnesium Oxide [Magnesium] 250 mg PO DAILY 05/25/19 Pregabalin [Lyrica*] 50 mg PO DAILY 05/25/19 Triamcinolone 0.1% Oint [Kenalog 0.1% Ointment*] 1 appl TOP BID PRN 05/25/19 Zinc Sulfate [Zinc Sulfate*] 220 mg PO DAILY 05/25/19 carvediloL [Coreg*] 25 mg PO TID 05/25/19 cloNIDine HCL [Catapres] 0.1 mg PO TID 05/25/19 Fluocinonide [Lidex] 1 appl TD PRN 08/10/19 Lidocaine 4% Patch [Lidoderm 5% Patch*] 1 patch TD PRN 08/10/19 Levalbuterol [Xopenex*] 0.63 mg NEB TID PRN #90 vial 08/14/19 Budesonide/Formoterol Fumarate [Symbicort 160-4.5 Mcg Inhaler] 2 puff IH BID #1 hfa.aer.ad 08/15/19 ALPRAZolam [Xanax*] 1 tab PO PRN PRN 03/11/22 Allopurinol 1 tab PO DAILY 03/11/22 Amitriptyline HCl 1 tab PO DAILY 03/11/22 Amlodipine Besylate [Norvasc] 1 tab PO DAILY 03/11/22 Cholecalciferol (Vitamin D3) [Vitamin D 1000 Iu Tab*] 1 tab PO DAILY 03/11/22 Collagenase [Santyl Ointment*] 250 units TOP DAILY 03/11/22 Ferrous Sulfate 1 tab PO DAILY 03/11/22 Hydralazine HCl 1 tab PO Q8HR PRN 03/11/22 Losartan Potassium 1 tab PO DAILY 03/11/22 Mupirocin Cream [Bactroban 2% Cream*] 1 dose TOP BID 03/11/22 SUMAtriptan succinate [Sumatriptan Succinate] 100 mg PO BID PRN 03/11/22 Sertraline HCl 1 tab PO DAILY 03/11/22 Spironolactone 25 mg PO DAILY 03/11/22 Tizanidine HCl 4 mg PO TID PRN 03/11/22 Topiramate 2 tab PO BID 03/11/22 Trazodone HCl 1 tab PO BEDTIME 03/11/22 Vitamin E (Dl,Tocopheryl Acet) [Vitamin E] 1 cap PO BID 03/11/22 buPROPion HCL [Wellbutrin Xl] 1 tab PO DAILY 03/11/22 hydrOXYzine pamoate [Hydroxyzine Pamoate] 1 tab PO Q8HR PRN 08/31/22 Atorvastatin Calcium [Lipitor] 40 mg PO BEDTIME #30 tab 03/13/22 Bumetanide 1 mg PO DAILY #30 tab 03/13/22 metOLazone [Zaroxolyn*] 2.5 mg PO M,W,F #15 tab 03/13/22 Pantoprazole [Protonix Tab] 40 mg PO BID #60 tab 08/07/23 - Past Medical/Surgical History Diabetic: No -: Obstructive sleep apnea -: HTN -: CHF -: Gout -: Venous insufficiency -: Tobacco abuse -: Morbid obesity -: afib -: Skin graft -: x2 -: vein removal on R leg (2014) Psychosocial/ Personal History: The patient is recently . - Family History Mother -: Diabetes Notes: Alzheimer's Father -: Heart disease, Stroke - Social History Alcohol use: No CD- Drugs: No Caffeine use: No Review of Systems per HPI Physical Examination - Physical Exam General: Alert, Other (Lethargic) HEENT: Atraumatic, Normocephalic Neck: 2+ carotid pulse no bruit Respiratory: Normal air movement, Crackles/rales Cardiovascular: Normal pulses, Regular rate/rhythm Capillary refill: <2 Seconds Gastrointestinal: Normal bowel sounds, Soft and benign Musculoskeletal: No clubbing, No swelling Integumentary: No breakdown, No significant lesion Neurological: Normal speech, Normal strength at 5/5 x4 extr, Other (generalized weakness) - Studies Laboratory Data (last 24 hrs) 10/16/23 10/16/23 10/16/23 12:05 12:05 12:05 WBC 4.50 Hgb 9.6 L Hct 30.4 L Plt Count 183 PT 12.7 H INR 1.16 Sodium Potassium BUN Creatinine Glucose Lipase 27 10/16/23 12:05 WBC Hgb Hct Plt Count PT INR Sodium 138 Potassium 3.6 BUN 24 H Creatinine 1.25 H Glucose 122 H Lipase Assessment and Plan - Plan Assessment/Plan Metabolic encephalopathy secondary hypoxia Hypoxic respiratory failure secondary to acute on chronic heart failure orthostatic hypotension Chronic combined systolic (congestive) and diastolic (congestive) heart failure ABG, BiPAP long-term (current) use of anticoagulants Chronic atrial fibrillation demetrius Non ST elevation [place] - elevated TROPONIN Near syncope Dizziness admit to ICU, telemetry Echo ordered CT Head o fracture or subluxation.The prevertebral soft tissues are normal in thickness.Multilevel degenerative changes are present in the spine.CT Chest IMPRESSION: 1. No acute intracranial abnormality. 2. No acute fracture or traumatic malalignment of the cervical spine. 3. Probable hypoventilation with mild scarring or subsegmental atelectasis. No definite acute process. 4. No acute findings within the abdomen or pelvis Chest Wall: No abnormal mass Lungs: Motion artifact. Scattered bilateral linear opacities likely reflecting scarring and/or subsegmental atelectasis. In addition, there is likely hypoventilation. Pleura: No effusions or pneumothorax. Alana/Mediastinum: No lymphadenopathy. Aorta/Pulmonary Arteries: Enlarged pulmonary arteries suggesting pulmonary hypertension. history of falling Fall on same level, unspecified Weakness PT eval, fall precautions Shoulder X neeru Unspecified kidney failure trend kidney function Anemia, unspecified trend HH transfuse <8 full code DVT resume anticoagulant Diet cardiac Dispositon: Home Discharge Plan: Home - Advance Directives Does patient have a Living Will: No Does patient have a Durable POA for Healthcare: No - Code Status/Comfort Care Code Status: Full Code Critical Care: No Time Spent Managing Pts Care (In Minutes): 55
--- NOTE | 2023-10-16 15:28 | P.HP ---
Certification for Inpatient Patient admitted to: Inpatient With expected LOS: >2 Midnights Patient will require the following post-hospital care: None Practitioner: I am a practitioner with admitting privileges, knowledge of patient current condition, hospital course, and medical plan of care. Services: Services provided to patient in accordance with Admission requirements found in Title 42 Section 412.3 of the Code of Federal Regulations Patient History Date of Service: 10/16/23 Reason for admission: Bradycardia with hypotension History of Present Illness: Patient is a 68-year-old female who presents to the emergency room with lethargy. Patient had has been very noncompliant with taking her medications. Family appears to be very frustrated with her not being compliant with following up with doctors. Patient came into the emergency room very lethargic after she had fallen. She has had multiple falls for the last 10 days. Apparently when she falls, she lays down and falls asleep. Whenever EMS gets there her blood pressure is significantly low. Her blood pressure has been in the 70s over 30s. She has been told she has congestive heart failure. She follows up with cardiology, Dr. Rivera. She was scheduled for an EP study with, Dr. Morgan, but apparently she was not able to get the study performed. Patient denies any other medical issues. She appears very lethargic and obtunded. At this time, she will be admitted to the hospital into the ICU because of bradycardia with hypotension. She is on numerous blood pressure medications, and these need to be reviewed. Patient will be admitted to the ICU with close monitoring. Patient has a history of atrial fibrillation, and she has been on antiarrhythmics and anticoagulation. She also has a wound on the left leg that she has been following with wound care. Patient follows up with her primary care provider, Dr. Herrera. Allergies insect venom Adverse Reaction (Verified 05/25/19 00:45) Anaphylaxis Home Medications: Amiodarone HCl [Cordarone*] 200 mg PO DAILY 05/25/19 Cholecalciferol (Vitamin D3) [Vitamin D3] 1,000 unit PO BID 05/25/19 Magnesium Oxide [Magnesium] 250 mg PO DAILY 05/25/19 Pregabalin [Lyrica*] 50 mg PO DAILY 05/25/19 Triamcinolone 0.1% Oint [Kenalog 0.1% Ointment*] 1 appl TOP BID PRN 05/25/19 Zinc Sulfate [Zinc Sulfate*] 220 mg PO DAILY 05/25/19 carvediloL [Coreg*] 25 mg PO TID 05/25/19 cloNIDine HCL [Catapres] 0.1 mg PO TID 05/25/19 Fluocinonide [Lidex] 1 appl TD PRN 08/10/19 Lidocaine 4% Patch [Lidoderm 5% Patch*] 1 patch TD PRN 08/10/19 Levalbuterol [Xopenex*] 0.63 mg NEB TID PRN #90 vial 08/14/19 Budesonide/Formoterol Fumarate [Symbicort 160-4.5 Mcg Inhaler] 2 puff IH BID #1 hfa.aer.ad 08/15/19 ALPRAZolam [Xanax*] 1 tab PO PRN PRN 03/11/22 Allopurinol 1 tab PO DAILY 03/11/22 Amitriptyline HCl 1 tab PO DAILY 03/11/22 Amlodipine Besylate [Norvasc] 1 tab PO DAILY 03/11/22 Cholecalciferol (Vitamin D3) [Vitamin D 1000 Iu Tab*] 1 tab PO DAILY 03/11/22 Collagenase [Santyl Ointment*] 250 units TOP DAILY 03/11/22 Ferrous Sulfate 1 tab PO DAILY 03/11/22 Hydralazine HCl 1 tab PO Q8HR PRN 03/11/22 Losartan Potassium 1 tab PO DAILY 03/11/22 Mupirocin Cream [Bactroban 2% Cream*] 1 dose TOP BID 03/11/22 SUMAtriptan succinate [Sumatriptan Succinate] 100 mg PO BID PRN 03/11/22 Sertraline HCl 1 tab PO DAILY 03/11/22 Spironolactone 25 mg PO DAILY 03/11/22 Tizanidine HCl 4 mg PO TID PRN 03/11/22 Topiramate 2 tab PO BID 03/11/22 Trazodone HCl 1 tab PO BEDTIME 03/11/22 Vitamin E (Dl,Tocopheryl Acet) [Vitamin E] 1 cap PO BID 03/11/22 buPROPion HCL [Wellbutrin Xl] 1 tab PO DAILY 03/11/22 hydrOXYzine pamoate [Hydroxyzine Pamoate] 1 tab PO Q8HR PRN 03/11/22 Atorvastatin Calcium [Lipitor] 40 mg PO BEDTIME #30 tab 03/13/22 Bumetanide 1 mg PO DAILY #30 tab 03/13/22 metOLazone [Zaroxolyn*] 2.5 mg PO M,W,F #15 tab 03/13/22 Pantoprazole [Protonix Tab] 40 mg PO BID #60 tab 08/07/23 - Past Medical/Surgical History Diabetic: No -: Obstructive sleep apnea -: HTN -: CHF -: Gout -: Venous insufficiency -: Tobacco abuse -: Morbid obesity -: afib -: Skin graft -: x2 -: vein removal on R leg (2014) Psychosocial/ Personal History: The patient is recently . - Family History Mother Medical History: Diabetes Notes: Alzheimer's Father Medical History: Heart disease, Stroke - Social History Smoking Status: Former smoker Alcohol use: No CD- Drugs: No Caffeine use: No Review of Systems 10-point ROS is otherwise unremarkable Physical Examination - Vital Signs Temperature: 98 F Blood Pressure: 80/50 Pulse: 44 Respirations: 14 Pulse Ox (%): 95 - Physical Exam General: Alert, In no apparent distress, Oriented x3 HEENT: Atraumatic, PERRLA, Mucous membr. moist/pink, EOMI, Sclerae nonicteric Neck: Supple, 2+ carotid pulse no bruit, No LAD, Without JVD or thyroid abnormality Respiratory: Diminished, Crackles/rales Cardiovascular: Regular rate/rhythm, Normal S1 S2, Other (bradycardia), Systolic murmur Gastrointestinal: Normal bowel sounds, Soft and benign, Non-distended, No tenderness Musculoskeletal: No clubbing, No swelling, No tenderness Integumentary: No rashes Neurological: Normal gait, Normal speech, Normal strength at 5/5 x4 extr, Normal tone, Sensation intact, Cranial nerves 3-12 intact, Normal affect Lymphatics: No axilla or inguinal lymphadenopathy - Studies Laboratory Data (last 24 hrs) 10/16/23 10/16/23 10/16/23 12:05 12:05 12:05 WBC 4.50 Hgb 9.6 L Hct 30.4 L Plt Count 183 PT 12.7 H INR 1.16 Sodium Potassium BUN Creatinine Glucose Lipase 27 10/16/23 12:05 WBC Hgb Hct Plt Count PT INR Sodium 138 Potassium 3.6 BUN 24 H Creatinine 1.25 H Glucose 122 H Lipase Assessment & Plan - Problems (Diagnosis) (1) Bradycardia Current Visit: Yes Status: Acute (2) History of atrial fibrillation Current Visit: Yes Status: Acute (3) Hypotension Current Visit: Yes Status: Acute (4) Obesity hypoventilation syndrome Current Visit: Yes Status: Acute (5) CHF (congestive heart failure) Current Visit: No Status: Chronic Qualifiers: Heart failure type: unspecified Heart failure chronicity: acute on chronic Qualified Code(s): I50.9 - Heart failure, unspecified (6) COPD (chronic obstructive pulmonary disease) Current Visit: No Status: Chronic Qualifiers: COPD type: unspecified COPD Qualified Code(s): J44.9 - Chronic obstructive pulmonary disease, unspecified (7) Chronic venous hypertension (idiopathic) with ulcer of left lower extremity Current Visit: No Status: Chronic (8) HTN (hypertension) Current Visit: No Status: Chronic Qualifiers: Hypertension type: primary hypertension Qualified Code(s): I10 - Essential (primary) hypertension (9) Lymphedema Current Visit: No Status: Chronic (10) Morbid obesity with BMI of 40.0-44.9, adult Current Visit: No Status: Chronic (11) Non-pressure chronic ulcer of left ankle with fat layer exposed Current Visit: No Status: Chronic (12) Obesity Onset Date: 04/28/17 Current Visit: No Status: Chronic Qualifiers: Obesity type: unspecified obesity type Obesity classification: adult class 3 (BMI >= 40) Body mass index: BMI 40.0-44.9 (13) Obstructive sleep apnea Onset Date: 04/28/17 Current Visit: No Status: Chronic (14) PAD (peripheral artery disease) Current Visit: No Status: Chronic (15) Stage II pressure ulcer of right heel Current Visit: No Status: Ruled-out - Plan Plan: 1. Bradycardia with hypotension in a patient with a history of atrial fibrillation; will go ahead and monitor in the intensive care unit. Patient is on numerous antihypertensives and antiarrhythmics. She was scheduled to get a EP study. We need to review her home medications to get a better idea on what she is taking. These medication need to be adjusted. Patient also is hyperc apnic which could be worsening her bradycardia arrhythmia. Will check her digoxin level as well. Will check her thyroid studies. Cardiology consultation. Patient will be admitted for inpatient hospitalization to the intensive care unit. If she continues to remain hypotensive and bradycardic will start on the low-dose dopamine. 2. History of obesity hypoventilation syndrome; blood gases showed mild hypercapnia with mild acidosis. Unlikely to explain her lethargy. She has had chronic hypercapnia and says she is probably used her CO2 being at the level where it sat. I think her lethargy has been worsened to be caused by her hypotension. Once her blood pressure improves I believe her mental status will get better. 3. History of atrial fibrillation; unsure as to what antiarrhythmic she is taken. She has a host of blood pressure medications as well as antiarrhythmics. She she may be on amiodarone along with beta-jose eduardo therapy and digoxin. She is also on clonidine which is was listed as a home medicine. Her family is going to bring an updated home medication list for us. 4. History of hypertension; continue with holding her BP meds. Monitor her closely in ICU 5. Chronic kidney disease stage III; continue monitoring renal function. Possible that her renal function may worsen because of her hypotension. She may develop ATN. Would expect this to recover over the next few days. Dr. Herrera is her PCP. She will be consulted. 6. Patient with wound to the left leg; continue with wound care. Will consult wound healing center for further treatment 7. GI DVT prophylaxis Discharge Plan: Home Plan to discharge in: Greater than 2 days - Advance Directives Does patient have a Living Will: No Does patient have a Durable POA for Healthcare: No - Code Status/Comfort Care Code Status: Full Code Critical Care: No Time Spent Managing PTS Care (In Minutes): 45
[2023-10-16 15:37] LABS: Specific Gravity 1.011 (1.005-1.030); Sqamous Epithelial <5 /HPF (None Seen); Urine Bacteria None Seen /HPF (<20); Urine Bilirubin NEGATIVE (Negative); Urine Blood Negative (Negative); Urine Clarity Clear (Clear); Urine Color Light-Yellow (Yellow); Urine Culture Reflex Order NOT NEEDED; Urine Glucose NEGATIVE (Negative); Urine Ketones NEGATIVE (Negative); Urine Microscopic Reflex YN ORDER UMIC; Urine Nitrite NEGATIVE (Negative); Urine Protein TRACE (Negative); Urine RBC None Seen /HPF (None Seen); Urine Urobilinogen Normal (Normal); Urine WBC <5 /HPF (<5)
[2023-10-16] MEDS ORDERED: ONDANSETRON 4 MG/2 ML VIAL IV PRN (15:56)
[2023-10-16] MEDS ORDERED: NA CHLORIDE 0.9% 100 ML ONE (16:37)
[2023-10-16] MEDS ORDERED: PIPERACIL/TAZO 3.375 GM VIAL IV ONE (16:37)
[2023-10-16] MEDS ORDERED: HEPARIN 5000 UNIT/ML 1 ML VIAL ONE (16:37)
[2023-10-16 16:44] LABS: Specific Gravity 1.008 (1.005-1.030); Sqamous Epithelial <5 /HPF (None Seen); Urine Bacteria None Seen /HPF (<20); Urine Bilirubin NEGATIVE (Negative); Urine Blood Negative (Negative); Urine Clarity Clear (Clear); Urine Color Light-Yellow (Yellow); Urine Culture Reflex Order NOT NEEDED; Urine Glucose NEGATIVE (Negative); Urine Ketones NEGATIVE (Negative); Urine Microscopic Reflex YN ORDER UMIC; Urine Nitrite NEGATIVE (Negative); Urine Protein NEGATIVE (Negative); Urine RBC <5 /HPF (None Seen); Urine Urobilinogen Normal (Normal); Urine WBC <5 /HPF (<5)
[2023-10-16 17:16] LABS: Barbiturates NEGATIVE (NEGATIVE); Benzodiazepines NEGATIVE (NEGATIVE); Cocaine NEGATIVE (NEGATIVE); METHAMPHETAM NEGATIVE (NEGATIVE); Methadone NEGATIVE (NEGATIVE); Opiates NEGATIVE (NEGATIVE); Phencyclidine NEGATIVE (NEGATIVE); THC Cannibis NEGATIVE (NEGATIVE)
[2023-10-16] MEDS: HEPARIN 5000 UNIT/ML 1 ML VIAL SQ SCH (17:17)
[2023-10-16] MEDS ORDERED: DOPAMINE/D5W 400 MG/250 ML BAG IV SCH (17:20)
[2023-10-16] MEDS: PIPER TAZO 3.375 GM in NA CHLORIDE 0.9% 100 ML IV SCH (17:24)
[2023-10-16] MEDS ORDERED: ACETAMINOPHEN 500 MG TAB ONE (19:18)
[2023-10-16] MEDS: ACETAMINOPHEN 500 MG TAB PO PRN (19:20)
[2023-10-16] MEDS ORDERED: PIPER TAZO 3.375 GM in NA CHLORIDE 0.9% 100 ML IV SCH (23:00)
[2023-10-17 04:29] LABS: Absolute Eosinophils 0.2 K/uL (0-0.5); Absolute Lymphocytes (CBC) 0.8 K/uL (0.7-4.9); Absolute Monocytes 0.8 K/uL (0.1-1.3); Absolute Neutrophil 2.3 K/uL (1.8-8.0); Eosinophils % 3.7 % (0-4.4); Hemoglobin 10.2 g/dL (12.0-15.0); Lymphocytes % 20.1 % (15.3-44.8); MCH 29.4 pg (27.0-35.0); MCV 94.6 fL (80-100); MPV 9.7 fL (7.6-11.3); Monocytes % 19.2 % (3.3-12.3); Platelets 191 thou/uL (152-406); RBC Red Blood Cell Count 3.49 M/uL (3.86-4.86); Red Cell Distribution Width 17.6 % (12.1-15.2)
[2023-10-17 04:55] LABS: Albumin 2.7 g/dL (3.4-5.0); Albumin/Globulin Ratio 0.6 (1.1-1.8); Anion Gap 5.1 mEq/L (5.0-15.0); Bilirubin Direct 0.2 mg/dL (0-0.2); Bilirubin Indirect, Calculated 0.3 mg/dL (0.2-0.8); Bilirubin Total 0.5 mg/dL (0.2-1.0); Globulin 4.4 g/dL (2.3-3.5); Magnesium 1.9 mg/dL (1.6-2.4); Potassium 4.1 mEq/L (3.5-5.1); Protein, Total 7.1 g/dL (6.4-8.2); Thyroid Stimulating Hormone 0.851 uIU/mL (0.358-3.740)
[2023-10-17] MEDS ORDERED: ALPRAZOLAM 0.25 MG TABLET PO PRN (05:49)
[2023-10-17] MEDS ORDERED: ALBUTEROL 2.5 MG/3 ML NEB SOL NEB PRN (05:49)
[2023-10-17] MEDS ORDERED: hydrOXYzine HCL 25 MG TAB PO PRN (05:49)
--- NOTE | 2023-10-17 06:54 | P.PN ---
Subjective Date of Service: 10/17/23 Chief Complaint: Bradycardia with hypotension Admitted from home for frequent falls, A-fib rate 44, heart monitor, hypotension Admit to ICU for possible beta-jose eduardo overdose, cardiology consulted, BP, HR improved overnight, tolerated Bipap during bedtime - Physical Exam General: Alert, In no apparent distress, alert and oriented x 2 HEENT: Atraumatic, PERRLA, Mucous membr. moist/pink, EOMI, Sclerae nonicteric Neck: Supple, 2+ carotid pulse no bruit, No LAD, Without JVD or thyroid abnormality Respiratory: Diminished, Crackles/rales Cardiovascular: Regular rate/rhythm, Normal S1 S2, Systolic murmur Gastrointestinal: Normal bowel sounds, Soft and benign, Non-distended, No tenderness Musculoskeletal: No clubbing, No swelling, No tenderness Integumentary: No rashes Neurological: Normal gait, Normal speech, Normal strength at 5/5 x4 extr, Normal tone, Sensation intact, Cranial nerves 3-12 intact, Normal affect Lymphatics: No axilla or inguinal lymphadenopathy <Haleigh Mayen - Last Filed: 10/17/23 09:01> Date of Service: 10/17/23 <Megan Ashley - Last Filed: 10/17/23 14:47> Review of Systems Per HPI <Haleigh Mayen - Last Filed: 10/17/23 09:01> Physical Examination - Vital Signs Temperature: 97.3 F Blood Pressure: 137/101 Pulse: 76 Respirations: 20 Pulse Ox (%): 100 - Studies Laboratory Data (last 24 hrs) 10/16/23 10/16/23 10/16/23 12:05 12:05 12:05 WBC 4.50 Hgb 9.6 L Hct 30.4 L Plt Count 183 PT 12.7 H INR 1.16 Sodium Potassium BUN Creatinine Glucose Lipase 27 10/16/23 12:05 WBC Hgb Hct Plt Count PT INR Sodium 138 Potassium 3.6 BUN 24 H Creatinine 1.25 H Glucose 122 H Lipase <Haleigh Mayen - Last Filed: 10/17/23 09:01> Assessment And Plan - Plan Assessment plan Bradycardia History of A-fib RVR Hypotension improved Congestive heart failure acute NSTEMI Elevated Admit to ICU, cardiology consulted, possible beta-jose eduardo overdose due to patient not knowing when she took Telemetry, Trend troponin, lipid panel, no reported chest pain Troponin 62, 68, 70, 68.5 BNP 2442, 1960 1. Bradycardia in the setting with hypotension in a patient with a history of atrial fibrillation; will go ahead and monitor in the intensive care unit. Patient is on numerous antihypertensives and antiarrhythmics. She was scheduled to get a EP study. We need to review her home medications to get a better idea on what she is taking. These medication need to be adjusted. Patient also is hypercapnic which could be worsening her bradycardia arrhythmia. Will check her digoxin level as well. Will check her thyroid studies. Cardiology consultation. Patient will be admitted for inpatient hospitalization to the intensive care unit. If she continues to remain hypotensive and bradycardic will start on the low-dose dopamine. 2. History of obesity hypoventilation syndrome; blood gases showed mild hypercapnia with mild acidosis. Unlikely to explain her lethargy. She has had chronic hypercapnia and says she is probably used her CO2 being at the level where it sat. I think her lethargy has been worsened to be caused by her hypotension. Once her blood pressure improves I believe her mental status will get better. 3. History of atrial fibrillation; unsure as to what antiarrhythmic she is taken. She has a host of blood pressure medications as well as antiarrhythmics. She she may be on amiodarone along with beta-jose eduardo therapy and digoxin. She is also on clonidine which is was listed as a home medicine. Her family is going to bring an updated home medication list for us. 4. History of hypertension; continue with holding her BP meds. Monitor her closely in ICU 5. Chronic kidney disease stage III; continue monitoring renal function. Possible that her renal function may worsen because of her hypotension. She may develop ATN. Would expect this to recover over the next few days. Dr. Herrera is her PCP. She will be consulted. 6. Patient with wound to the left leg; continue with wound care. Will consult wound healing center for further treatment 7. GI DVT prophylaxis Metabolic encephalopathy secondary to hypoxia, hypercarbic Acute hypoxic respiratory failure secondary to COPD exacerbation Hypoventilation syndrome Obesity Obstructive sleep apnea BiPAP, ABG, O2 2 L keep sats greater than 92% Resume home nebs, as needed Pulmonary consult,BIPAP overnight and PRN Urine drug screen negative Lymphedema Chronic venous stasis ulcer left lower extremity, Wound care, patient is receiving home health wound care CKD stage III Trend kidney function Nephrology consult Morbid obesity BMI greater than 42 Peripheral arterial disease Stage II pressure ulcer right heel Wound care, pressure offload Full code Diet cardiac DVT Disposition Home with family, home health for wound care Discharge Plan: Home - Code Status/Comfort Care Code Status: Full Code Critical Care: Yes Time Spent Managing PTS Care (In Minutes): 55 <Haleigh Mayen - Last Filed: 10/17/23 09:01> - Current Problems (Diagnosis) (1) Bradycardia Current Visit: Yes Status: Acute (2) History of atrial fibrillation Current Visit: Yes Status: Acute (3) Hypotension Current Visit: Yes Status: Acute (4) Obesity hypoventilation syndrome Current Visit: Yes Status: Acute (5) CHF (congestive heart failure) Current Visit: No Status: Chronic Qualifiers: Heart failure type: unspecified Heart failure chronicity: acute on chronic Qualified Code(s): I50.9 - Heart failure, unspecified (6) COPD (chronic obstructive pulmonary disease) Current Visit: No Status: Chronic Qualifiers: COPD type: unspecified COPD Qualified Code(s): J44.9 - Chronic obstructive pulmonary disease, unspecified (7) Chronic venous hypertension (idiopathic) with ulcer of left lower extremity Current Visit: No Status: Chronic (8) HTN (hypertension) Current Visit: No Status: Chronic Qualifiers: Hypertension type: primary hypertension Qualified Code(s): I10 - Essential (primary) hypertension (9) Lymphedema Current Visit: No Status: Chronic (10) Morbid obesity with BMI of 40.0-44.9, adult Current Visit: No Status: Chronic (11) Non-pressure chronic ulcer of left ankle with fat layer exposed Current Visit: No Status: Chronic (12) Obesity Onset Date: 04/28/17 Current Visit: No Status: Chronic Qualifiers: Obesity type: unspecified obesity type Obesity classification: adult class 3 (BMI >= 40) Body mass index: BMI 40.0-44.9 (13) Obstructive sleep apnea Onset Date: 04/28/17 Current Visit: No Status: Chronic (14) PAD (peripheral artery disease) Current Visit: No Status: Chronic (15) Stage II pressure ulcer of right heel Current Visit: No Status: Ruled-out <Megan Ashley - Last Filed: 10/17/23 14:47> Date of Service: 10/17/23 Patient seen and examined. Agree with LOUIE assessment. Patient's blood pressure is improved. Patient has been taking numerous medications, and she has not been seeing a primary care provider. She is scheduled to follow-up with Dr. Herrera. Will adjust her home medications during this hospitalization. Hopefully, her blood pressure and heart rate will be stable. Seen by cardiology and appreciate their assistance. Patient was admitted with bradycardia and hypotension. Patient will be moved to inpatient hospitalization. Cardiology assistance is appreciated. <Megan Ashley - Last Filed: 10/17/23 14:47>
[2023-10-17] MEDS ORDERED: AMIODARONE HCL 200 MG TAB ONE (08:14)
[2023-10-17] MEDS ORDERED: CLOPIDOGREL 75 MG TABLET ONE (08:14)
[2023-10-17] MEDS ORDERED: ASPIRIN EC 81 MG TAB PO ONE (08:15)
[2023-10-17] MEDS: AMIODARONE HCL 200 MG TAB PO SCH (08:18)
[2023-10-17] MEDS: GABAPENTIN 400 MG CAP PO SCH (08:18)
[2023-10-17] MEDS: CLOPIDOGREL 75 MG TABLET PO SCH (08:18)
[2023-10-17] MEDS: carvediloL 12.5 MG TAB PO SCH (08:18)
[2023-10-17] MEDS: ASPIRIN EC 81 MG TAB PO SCH (08:18)
[2023-10-17] MEDS: SERTRALINE HCL 100 MG TAB PO SCH (08:18)
[2023-10-17] MEDS: HOME MED 1 EA UNK (Folic Acid [Folic Acid] 0.8 MG Capsule) PO SCH (08:19)
[2023-10-17] MEDS: SPIRONOLACTONE 25 MG TABLET PO SCH (09:22)
[2023-10-17] MEDS: RIVAROXABAN 15 MG TABLET PO SCH (09:22)
[2023-10-17] MEDS: CALCIUM CARB 500MG/VIT D 200 IU TAB PO SCH (09:22)
[2023-10-17] MEDS: BUPROPION HCL XL 150 MG TAB PO SCH (09:22)
[2023-10-17] MEDS: allopurinoL 300 MG TAB PO SCH (09:23)
[2023-10-17] MEDS: COLLAGENASE 30 GM OINTMENT TOP SCH (16:11)
[2023-10-17] MEDS ORDERED: carvediloL 6.25 MG TAB ONE (16:12)
[2023-10-17] MEDS ORDERED: FUROSEMIDE 20 MG/ 2ML VIAL ONE (16:12)
[2023-10-17] MEDS: FUROSEMIDE 20 MG/ 2ML VIAL IV SCH (16:13)
--- NOTE | 2023-10-17 16:54 | CON ---
Date of Consultation: 10/17/2023 History Of Present Illness: The patient is seen in intensive care unit which is housed currently in the emergency room at [facility] in [place]. The patient is alert, able to provide s ome history, does get confused at times but is able to answer some questions. She presented to the ospital on October 15 with bradycardia, also with the low blood pressure. Has a history of arrhythmia s with atrial fibrillation. Has seen Dr. Rivera in the past and has also visited with Dr. Cathy worthy has had perhaps further evaluations pending for EP ablation and addressing of her atrial fibrillati on. This patient is currently in regular rhythm. Her blood pressure has now improved. She has lisa en some IV fluids. In the emergency room, was given a dose of Lasix earlier, now has been started on Lasix, to be started this evening with parameters. The patient is breathing comfortably. Her lungs are clear. Her blood pressure is improved. Her pulse is now in 80 and regular. Past Medical History: Significant as mentioned above for atrial fibrillation, for arrhythmias, for h ypertension, volume overload, congestive heart failure. The patient is a poor historian. Also the p atient has history of obstructive sleep apnea, morbid obesity. Medications: In the chart reviewed. Current medications are reviewed. The patient is currently get ting amiodarone, also on Coreg. Has been started on Lasix as of this evening. I have advised the nu rse to put a holding parameter on it to be held below blood pressure of systolic 120. Family History: Noncontributory. Allergies: LISTED TO INSECT VENOM. Physical Examination: Vitals: Currently stable. Blood pressure 124/67, pulse is about 80 to 90 and regular, respirations of around 14 to 16 and comfortable, O2 sats are 95% to 99% on room air. Lungs: Clear anteriorly. Abdomen: Soft. Extremities: Revealed trace to no edema. Heart: Sounds are regular. Laboratory Data: Reviewed. Labs showed WBC 4.1, hemoglobin 10.2, hematocrit 33, platelet count of 1 91. Chemistry shows sodium 141, potassium 4.1, chloride is 107, bicarb is 33. BUN is 20, creatinine is 1.14, this is improved from 24 and 1.25 yesterday. Troponins are elevated to 68 to 70 range. TS H is at 0.8251. Assessment And Plan: The patient with arrhythmia/hypotension, bradycardia, question secondary to bet a-jose eduardo. At this point, the patient's heart rate is improved. Her blood pressure is stable. Has gotten some IV fluids. Continue to monitor closely with heart rate and blood pressure. Cardiology a ssistance appreciated. Creatinine has improved from yesterday. Patient's volume status is getting c lose to euvolemic. Okay to start low-dose Lasix as has been ordered by Dr. Ashley. Would like her to have a parameter to not be given below blood pressure of systolic 120 if blood pressure starts going down, would have to cut back on Lasix. Patient will need followup outpatient to assess for her resid ual renal function and treatment of same. Also advised her to make sure she follows with Dr. Rivera for further management and evaluation and treatment with Dr. Morgan as well for her atrial fibrillat ion. Patient will need some clear understanding and education of her medications to make sure she do es not overdose on beta-blockers or amiodarone and takes the medications with monitoring of her pulse and blood pressure. /MORIAH Voice ID: [id number] Report ID: [id number]
[2023-10-17] MEDS: ATORVASTATIN 40 MG TAB PO SCH (20:02)
[2023-10-17] MEDS: AMITRIPTYLINE 25 MG TAB PO SCH (20:03)
[2023-10-18 05:10] LABS: Albumin 2.7 g/dL (3.4-5.0); Albumin/Globulin Ratio 0.6 (1.1-1.8); Anion Gap 6.9 mEq/L (5.0-15.0); Bilirubin Total 0.5 mg/dL (0.2-1.0); Globulin 4.6 g/dL (2.3-3.5); Magnesium 1.8 mg/dL (1.6-2.4); Potassium 3.9 mEq/L (3.5-5.1); Protein, Total 7.3 g/dL (6.4-8.2)
[2023-10-18 06:49] LABS: Absolute Eosinophils 0.1 K/uL (0-0.5); Absolute Lymphocytes (CBC) 1.3 K/uL (0.7-4.9); Absolute Monocytes 0.9 K/uL (0.1-1.3); Absolute Neutrophil 2.7 K/uL (1.8-8.0); Eosinophils % 2.5 % (0-4.4); Hematocrit 32.9 % (36.0-45.0); Hemoglobin 10.2 g/dL (12.0-15.0); Lymphocytes % 25.3 % (15.3-44.8); MCH 29.3 pg (27.0-35.0); MCHC 31.1 g/dL (32.0-36.0); MCV 94.2 fL (80-100); MPV 9.5 fL (7.6-11.3); Monocytes % 18.2 % (3.3-12.3); Nucleated Red Blood Cells % 0.1 % (0-0); Platelets 179 thou/uL (152-406); RBC Red Blood Cell Count 3.49 M/uL (3.86-4.86); Red Cell Distribution Width 17.5 % (12.1-15.2)
[2023-10-18] MEDS ORDERED: CLOPIDOGREL 75 MG TABLET ONE (08:55)
[2023-10-18] MEDS ORDERED: AMIODARONE HCL 200 MG TAB ONE (08:55)
[2023-10-18] MEDS ORDERED: FOLIC ACID 1 MG TABLET ONE (08:55)
[2023-10-18] MEDS ORDERED: GABAPENTIN 300 MG CAP ONE ×2 (08:55→13:21)
[2023-10-18] MEDS ORDERED: FUROSEMIDE 20 MG/ 2ML VIAL ONE (08:56)
[2023-10-18] MEDS ORDERED: carvediloL 6.25 MG TAB ONE (08:56)
[2023-10-18] MEDS: FOLIC ACID 1 MG TABLET PO SCH (09:09)
[2023-10-18] MEDS ORDERED: ALBUTEROL 2.5 MG/3 ML NEB SOL NEB PRN (11:14)
--- NOTE | 2023-10-18 12:05 | P.PN ---
Subjective Date of Service: 10/18/23 Chief Complaint: Bradycardia with hypotension Pt is resting comfortably in bed. Vital signs are stable. Pt has venous stasis ulcer on left leg. Currently dressed up. No other complaints. Review of Systems General: Unremarkable Eyes: Unremarkable ENT: Unremarkable Respiratory: Unremarkable Cardiovascular: Unremarkable Gastrointestinal: Unremarkable Genitourinary: Unremarkable Musculoskeletal: Unremarkable Integumentary: Unremarkable Neurological: Unremarkable Lymphatics: Unremarkable Physical Examination - Vital Signs Temperature: 98.4 F Blood Pressure: 131/83 Pulse: 83 Respirations: 18 Pulse Ox (%): 98 - Physical Exam General: Alert, In no apparent distress, Oriented x3, Obese HEENT: Atraumatic, Normocephalic, PERRLA Neck: Supple, 2+ carotid pulse no bruit Respiratory: Clear to auscultation bilaterally, Normal air movement Cardiovascular: No edema, Normal pulses, Regular rate/rhythm, Normal S1 S2 Capillary refill: <2 Seconds Gastrointestinal: Normal bowel sounds, Soft and benign, Non-distended Musculoskeletal: No clubbing, No swelling Integumentary: No rashes, No breakdown, Skin lesion (left leg venous stasis ulcer) Neurological: Normal gait, Normal speech, Normal strength at 5/5 x4 extr Lymphatics: No axilla or inguinal lymphadenopathy Assessment And Plan - Plan Bradycardia: resolved. Will continue telemetry. Will likely transfer pt out of the ICU. It is likely pt overdosed on her home meds. Will verify her home med regimen. Will slowly add her cardiac meds. History of atrial fibrillation: Waiting to confirm her home meds. Pt is has some antiarrhythmic on her home med list. Pt has amiodarone, digoxin and BB. She also takes clonidine at home. Digoxin level is 0.10 ( low). Will continue coreg, amiodarone, xarelto and telemetry. Elevated [place]NP: [place] [address]. Will check Echo. troponin is 68.2 -> 70.3 - 68.9. Metabolic encephalopathy secondary to hypoxia, hypercarbic / Acute hypoxic respiratory failure secondary to COPD exacerbation/ Obesity Hypoventilation syndrome / Obstructive sleep apnea: Will continue prn BIPAP, duoneb and oxygen. Pulm is following pt. Lymphedema / Chronic venous stasis ulcer left lower extremity: Will continue wound care. Htn: Will hold BP meds for now. CKD stage III: Cr is 1.15. Will avoid nephrotoxins and monitor renal function. Consulted Conference Interpreter. Morbid obesity BMI greater than 42: Pt was advised to lose weight. Peripheral arterial disease / Stage II pressure ulcer right heel: Will continue wound care DVT ppx: SCD Disposition: Pending hospital course. Discharge Plan: Home
--- NOTE | 2023-10-18 12:47 | EKG ---
Test Date: 2023-10-16 Test Time: 12:05:38 Speed Runner: DEYA MEASUREMENT RESULTS: Intervals: Rate: 58 NJ: 324 QRSD: 106 QT: 564 QTc: 553 [place]: P: 86 NJ: 324 QRS: 43 T: 77 INTERPRETIVE STATEMENTS: Sinus bradycardia with 1st degree AV block Low voltage QRS Nonspecific ST and T wave abnormality Prolonged QT Abnormal ECG Compared to ECG 09/29/2023 16:45:20 First degree AV block now present Prolonged QT interval now present Sinus rhythm no longer present Possible ischemia no longer present ST (T wave) deviation still present Electronically Signed On 10-18-23 12:41:50 CDT by Blake Raphael
--- NOTE | 2023-10-18 14:05 | ECHO ---
HEIGHT: 5 ft 7 in WEIGHT: 269 lb 0 oz DATE OF STUDY: 10/18/[address]: Haleigh Mayen [employer] PARKERJanett 2-DIMENSIONAL: YES M.MODE: YES DOPPLER: YES COLOR FLOW: YES TDS: PORTABLE: YES DEFINITY: BUBBLE STUDY: DIAGNOSIS: NEAR SYNCOPE CARDIAC HISTORY: CATHERIZATION: SURGERY: PROSTHETIC VALVE: PACEMAKER: MEASUREMENTS (cm) DIASTOLIC (NORMALS) SYSTOLIC (NORMALS) IVSd 1.0 (0.6-1.2) LA Diam 4.4 (1.9-4.0) LVEF 61% LVIDd 5.9 (3.5-5.7) LVIDs 3.9 (2.0-3.5) %FS 33% LVPWd 1.2 (0.6-1.2) Ao Diam 3.0 (2.0-3.7) 2 DIMENSIONAL ASSESSMENT: RIGHT ATRIUM: NORMAL LEFT ATRIUM: ENLARGED RIGHT VENTRICLE: NORMAL LEFT VENTRICLE: NORMAL TRICUSPID VALVE: MILD TRICUSPID REGURGITATION MITRAL VALVE: MILD MITRAL REGURGITATION PULMONIC VALVE: MILD PULMONIC INSUFFICIENCY AORTIC VALVE: MILD AORTIC INSUFFICIENCY PERICARDIAL EFFUSION: NONE AORTIC ROOT: NORMAL LEFT VENTRICULAR WALL MOTION: NORMAL DOPPLER/COLOR FLOW: SEE BELOW COMMENTS: 1. NORMAL LEFT VENTRICULAR EJECTION FRACTION 55-60% 2. NORMAL WALL MOTION 3. MILD MITRAL REGURGITATION, TRICUSPID REGURGITATION, AORTIC INSUFFICIENCY, PULMONIC INSUFFICIENCY 4. DIASTOLIC DYSFUNCTION TECHNOLOGIST: JOSEPH HERZOG
--- NOTE | 2023-10-18 20:20 | CON ---
Date of Consultation: 10/18/2023 Reason For Consultation: Bradycardia and low blood pressure and elevated troponin. History Of Present Illness: A 68-year-old female presented to the emergency room lethargic. She has past medical history of CHF, hypertension, atrial fibrillation, obstructive sleep apnea. She was on amiodarone at home and carvedilol, presented to the emergency room very lethargic. She is bradycard ic. Blood pressure was low in the low 70s and shortly after that, things are improved. Heart rate i n the mid 60s now. Blood pressure is normal. She feels better. Denies having any chest pain, but s he has orthopnea and lower extremity edema. Past Medical History: As outlined above in HPI. Medications: Refer reconciliation consult sheet for detailed list. Allergies: NO KNOWN DRUG ALLERGIES. Family History: No premature coronary artery disease or cancer. Social History: She does not smoke or drink. Does not use any drugs. Review of Systems: All systems reviewed and they were negative except as mentioned in HPI. Physical Examination: Vital Signs: Reviewed. Head and Neck: Pupils are equal, reactive to light. Intact eye movements. No JVD. No cervical lym phadenopathy. Neck is supple. Thyroid is not enlarged. Lungs: Clear to auscultation bilaterally. No rhonchi, rales, or crackles. No accessory muscle use. Heart: Regular rate and rhythm. No extra sounds. Abdomen: Soft, nontender. Bowel sounds positive. No organomegaly. No masses or hernia. No rigidi ty or rebound. Extremities: No edema, clubbing, or cyanosis. Intact pulses. Skin: No rash or nodule. Neurologic: Alert, awake, oriented x3. No acute focal deficits appreciated. Lymph Nodes: No cervical or axillary lymphadenopathy. Investigations: Troponin peaked at 17. BUN is 19, creatinine 1.15, and hemoglobin is 10.2. Assessment/recommendation: 1.Bradycardia reported. I do not see any strips. She is on beta-jose eduardo and amiodarone, to hold brett th and monitor clinically, and then reintroduce beta-jose eduardo if need be at a lower dose. 2.Elevated troponin. Echo was done, showed normal ejection fraction. Recommend Lexiscan nuclear st ress test. 3.Atrial fibrillation with bradycardia. I recommend to hold amiodarone. Continue Xarelto and eugenie nue carvedilol and monitor. 4.Acute on chronic diastolic heart failure exacerbation. Agree with IV Lasix. SR/MODL Voice ID: [id number] Report ID: [id number]
[2023-10-18] MEDS: HYDROCODONE/APAP 5/325 MG TAB PO PRN (20:43)
--- NOTE | 2023-10-18 21:04 | P.PN ---
Date of Service: 10/18/23 Vital Signs Temp Pulse Resp BP Pulse Ox 97.4 F 72 17 126/88 100 10/18/23 19:00 10/18/23 19:00 10/18/23 20:43 10/18/23 20:00 10/18/23 20:43 Medications Acetaminophen (Acetaminophen 500 Mg Tab) 500 mg PO Q4HP PRN PRN Reason: Pain scale 2-4 (Mild) Last Admin: 10/16/23 19:20 Dose: 500 mg Hydrocodone Bitart/Acetaminophen (Hydrocodone/Apap 5/325 Mg Tab) 1 tab PO Q6H PRN PRN Reason: Pain scale 5-7 (Moderate) Last Admin: 10/18/23 20:43 Dose: 1 tab Albuterol Sulfate (Albuterol 2.5 Mg/3 Ml Neb Bianca) 1.25 mg NEB [id number] PRN PRN Reason: SHORTNESS OF BREATH Allopurinol (Allopurinol 300 Mg Tab) 300 mg PO DAILY [facility] Last Admin: 10/18/23 09:09 Dose: 300 mg Alprazolam (Alprazolam 0.25 Mg Tablet) 0.5 mg PO BID PRN PRN Reason: ANXIETY Amiodarone HCl (Amiodarone Hcl 200 Mg Tab) 200 mg PO DAILY [facility] Last Admin: 10/18/23 09:09 Dose: 200 mg Amitriptyline HCl (Amitriptyline 25 Mg Tab) 25 mg PO BEDTIME [facility] Last Admin: 10/18/23 20:39 Dose: 25 mg Aspirin (Aspirin Ec 81 Mg Tab) 81 mg PO DAILY [facility] Last Admin: 10/18/23 09:09 Dose: 81 mg Atorvastatin Calcium (Atorvastatin 40 Mg Tab) 40 mg PO BEDTIME [facility] Last Admin: 10/18/23 20:39 Dose: 40 mg Bupropion HCl (Bupropion Hcl Xl 150 Mg Tab) 150 mg PO DAILY [facility] Last Admin: 10/18/23 09:09 Dose: 150 mg Calcium Carbonate (Calcium Carb 500mg/Vit D 200 Iu Tab) 1 tab PO DAILY [facility] Last Admin: 10/18/23 09:09 Dose: 1 tab Carvedilol (Carvedilol 12.5 Mg Tab) 6.25 mg PO BIDWM [facility] Last Admin: 10/18/23 17:15 Dose: 6.25 mg Clopidogrel Bisulfate (Clopidogrel 75 Mg Tablet) 75 mg PO DAILY [facility] Last Admin: 10/18/23 09:09 Dose: 75 mg Collagenase (Collagenase 30 Gm Ointment) 1 appl TOP DAILY [facility] Last Admin: 10/18/23 09:10 Dose: 1 appl Folic Acid (Folic Acid 1 Mg Tablet) 1 mg PO DAILY [facility] Last Admin: 10/18/23 09:09 Dose: 1 mg Furosemide (Furosemide 20 Mg/ 2ml Vial) 20 mg IV BIDL [facility] Last Admin: 10/18/23 17:15 Dose: 20 mg Gabapentin (Gabapentin 400 Mg Cap) 400 mg PO TID [facility] Last Admin: 10/18/23 20:39 Dose: 400 mg Home Med (Budesonide/Formoterol Fumarate [Symbicort 160-4.5 Mcg Inhaler]) 2 puff IH BID [facility] Last Admin: 10/17/23 20:03 Dose: Not Given Hydroxyzine HCl (Hydroxyzine Hcl 25 Mg Tab) 25 mg PO Q8HR PRN PRN Reason: ITCHING Piperacillin Sod/Tazobactam (Sod 3.375 gm/ Sodium Chloride) 100 mls @ 25 mls/hr IV Q8H [facility]; Protocol Last Admin: 10/18/23 17:16 Dose: 100 mls Ondansetron HCl (Ondansetron 4 Mg/2 Ml Vial) 4 mg IV Q6HP PRN PRN Reason: NAUSEA / VOMITING Rivaroxaban (Rivaroxaban 15 Mg Tablet) 15 mg PO DAILY [facility] Last Admin: 10/18/23 09:09 Dose: 15 mg Sertraline HCl (Sertraline Hcl 100 Mg Tab) 100 mg PO DAILY [facility] Last Admin: 10/18/23 09:09 Dose: 100 mg Spironolactone (Spironolactone 25 Mg Tablet) 25 mg PO DAILY [facility] Last Admin: 10/18/23 09:39 Dose: 25 mg Lab Results (last 24 hrs) 10/18/23 06:39: WBC 5.10, RBC 3.49 L, Hgb 10.2 L, Hct 32.9 L, MCV 94.2, MCH 29.3, MCHC 31.1 L, RDW 17.5 H, Plt Count 179, MPV 9.5, Neutrophils % 53.0, Lymphocytes % 25.3, Monocytes % 18.2 H, Eosinophils % 2.5, Basophils % 1.0, Absolute Neutrophils 2.7, Absolute Lymphocytes 1.3, Absolute Monocytes 0.9, Absolute Eosinophils 0.1, Absolute Basophils 0.0 10/18/23 04:20: Sodium 139, Potassium 3.9, Chloride 106, Carbon Dioxide 30, Anion Gap 6.9, BUN 19 H, Creatinine 1.15 H, Est GFR (CKD-EPI) 53 L, Glucose 83, Calcium 8.4 L, Magnesium 1.8, Total Bilirubin 0.5, AST 19, ALT 18, Alkaline Phos phatase 88, Serum Total Protein 7.3, Albumin 2.7 L, Globulin 4.6 H, Albumin/Globulin Ratio 0.6 L Microbiology Results 10/16/23 12:52 Blood - Blood Aerobic Blood Culture - Preliminary No growth in 24 hours. 10/16/23 12:52 Blood - Blood Anaerobic Blood Culture - Preliminary No growth in 24 hours. 10/16/23 12:05 Blood - Blood Aerobic Blood Culture - Preliminary No growth in 24 hours. 10/16/23 12:05 Blood - Blood Anaerobic Blood Culture - Preliminary No growth in 24 hours. Assessment/ Plan: Nephrology No dyspnea No chest pain No acute events overnight Feeling better Vitals, medications, blood work and imaging reviewed in the chart NAD. Obese. MMM. NCAT. Normal Respiratory Effort. S1S2. ND Abd. No C/C/E. No rash. AAO. Normal speech. Heller Clear CKD III -No NSAIDs HTN with CKD -Continue Coreg LE Edema -Continue furosemide & spironolactone Hypoalbuminemia -Encourage nutrition Anemia in chronic illness -Monitor H&H Hx Gout -Continue Allopurinol Case reviewed with Dr. Uribe
[2023-10-19] MEDS ORDERED: PIPERACIL/TAZO 3.375 GM VIAL IV ONE (02:08)
[2023-10-19] MEDS ORDERED: NA CHLORIDE 0.9% 100 ML ONE (02:08)
[2023-10-19 05:04] LABS: Absolute Eosinophils 0.2 K/uL (0-0.5); Absolute Lymphocytes (CBC) 1.2 K/uL (0.7-4.9); Absolute Monocytes 0.8 K/uL (0.1-1.3); Absolute Neutrophil 2.3 K/uL (1.8-8.0); Basophils % 0.7 % (0-1.3); Eosinophils % 4.1 % (0-4.4); Hematocrit 32.9 % (36.0-45.0); Hemoglobin 10.3 g/dL (12.0-15.0); MCH 29.4 pg (27.0-35.0); MCHC 31.2 g/dL (32.0-36.0); MCV 94.3 fL (80-100); MPV 10.3 fL (7.6-11.3); Monocytes % 18.5 % (3.3-12.3); Neutrophils % 50.7 % (41.7-73.7); Nucleated Red Blood Cells % 0.1 % (0-0); Platelets 184 thou/uL (152-406); RBC Red Blood Cell Count 3.49 M/uL (3.86-4.86); Red Cell Distribution Width 17.4 % (12.1-15.2)
[2023-10-19 05:18] LABS: Anion Gap 6.4 mEq/L (5.0-15.0); Potassium 3.4 mEq/L (3.5-5.1)
[2023-10-19] MEDS ORDERED: POTASSIUM 25 MEQ EFFERV TAB ONE (06:10)
[2023-10-19 06:54] VITALS: BMI 42.3
[2023-10-19] MEDS ORDERED: AMIODARONE HCL 200 MG TAB ONE (08:10)
[2023-10-19] MEDS ORDERED: CLOPIDOGREL 75 MG TABLET ONE (08:10)
[2023-10-19] MEDS ORDERED: ASPIRIN EC 81 MG TAB PO ONE (08:10)
[2023-10-19] MEDS: POTASSIUM CL SA 10 MEQ TAB PO ONE (08:30)
[2023-10-19] MEDS ORDERED: REGADENOSON 0.4 MG/5 ML SYR IV ONE (09:23)
--- NOTE | 2023-10-19 10:38 | RAD REPORT ---
EXAM DESCRIPTION: NM - Rest Stress Cardiac Imaging - 10/19/2023 9:57 am CLINICAL HISTORY: Chest pain. COMPARISON: 2016 TECHNIQUE: The patient was administered 10.4 mCi of Tc 99m Sestamibi prior to resting SPECT imaging of the heart. The patient was then administered 29.6 mCi of Tc 99m Sestamibi following exercise or ph armacologic stress. Multiplanar SPECT images were reviewed. FINDINGS: Stress and rest images demonstrate a small area of diminished radiotracer uptake involving the lateral left ventricular myocardium which may indicate an infarction. Small area of diminished radiotracer uptake involving the apical left ventricular myocardium may repr esent physiologic thinning Remainder of the exam unremarkable The left ventricular ejection fraction equals 48% IMPRESSION: No evidence of stress-induced ischemia
--- NOTE | 2023-10-19 12:04 | P.PN ---
Subjective Date of Service: 10/19/23 Chief Complaint: Bradycardia with hypotension Pt is resting comfortably in bed. Vital signs are stable while taking coreg and amiodarone. NM stress test is unremarkable. Pt has venous stasis ulcer on left leg. Currently dressed up. No other complaints. Review of Systems General: Unremarkable Eyes: Unremarkable ENT: Unremarkable Respiratory: Unremarkable Cardiovascular: Unremarkable Gastrointestinal: Unremarkable Genitourinary: Unremarkable Musculoskeletal: Unremarkable Integumentary: Unremarkable Neurological: Unremarkable Lymphatics: Unremarkable Physical Examination - Vital Signs Temperature: 97.1 F Blood Pressure: 130/93 Pulse: 81 Respirations: 16 Pulse Ox (%): 99 - Physical Exam General: Alert, In no apparent distress, Oriented x3 HEENT: Atraumatic, Normocephalic, PERRLA Neck: Supple, 2+ carotid pulse no bruit, JVD not distended Respiratory: Clear to auscultation bilaterally, Normal air movement Cardiovascular: No edema, Normal pulses, Regular rate/rhythm, Normal S1 S2 Capillary refill: <2 Seconds Gastrointestinal: Normal bowel sounds, Soft and benign, Non-distended Musculoskeletal: No clubbing, No swelling Integumentary: No rashes, No breakdown Neurological: Normal gait, Normal speech, Normal strength at 5/5 x4 extr, Normal tone, Sensation intact, Cranial nerves 3-12 intact Lymphatics: No axilla or inguinal lymphadenopathy Assessment And Plan - Plan Bradycardia: resolved. Will continue telemetry. Will likely transfer pt out of the ICU. It is likely pt overdosed on her home meds. Will slowly add her cardiac meds. History of atrial fibrillation: Waiting to confirm her home meds. Pt is has some antiarrhythmic on her home med list. Pt has amiodarone, digoxin and BB. She also takes clonidine at home. Digoxin level is 0.10 ( low). Will continue coreg, amiodarone, xarelto and telemetry. Elevated BNP: [place] [address]. Echo shows EF 55 - 60% Elevated troponin: trend is 68.2 -> 70.3 - 68.9. NM stress test is unremarkable. Metabolic encephalopathy secondary to hypoxia, hypercarbic / Acute hypoxic respiratory failure secondary to COPD exacerbation/ Obesity Hypoventilation syndrome / Obstructive sleep apnea: Will continue prn BIPAP, duoneb and oxygen. Pulm is following pt. Lymphedema / Chronic venous stasis ulcer left lower extremity: Will continue wound care. Htn: Will hold BP meds for now. CKD stage III: Cr is 1.25<- 1.15. Will avoid nephrotoxins and monitor renal function. Consulted [employer]. Morbid obesity BMI greater than 42: Pt was advised to lose weight. Peripheral arterial disease / Stage II pressure ulcer right heel: Will continue wound care DVT ppx: SCD Disposition: Pending hospital course. Ok to transfer pt to medicine floor. Discharge Plan: Home
--- NOTE | 2023-10-19 21:04 | P.PN ---
Date of Service: 10/19/23 Vital Signs Temp Pulse Resp BP Pulse Ox 97.3 F 96 H 18 123/89 99 10/19/23 17:34 10/19/23 17:34 10/19/23 17:34 10/19/23 17:34 10/19/23 17:34 Medications Acetaminophen (Acetaminophen 500 Mg Tab) 500 mg PO Q4HP PRN PRN Reason: Pain scale 2-4 (Mild) Last Admin: 10/16/23 19:20 Dose: 500 mg Hydrocodone Bitart/Acetaminophen (Hydrocodone/Apap 5/325 Mg Tab) 1 tab PO Q6H PRN PRN Reason: Pain scale 5-7 (Moderate) Last Admin: 10/19/23 04:52 Dose: 1 tab Albuterol Sulfate (Albuterol 2.5 Mg/3 Ml Neb Bianca) 1.25 mg NEB [id number] PRN PRN Reason: SHORTNESS OF BREATH Allopurinol (Allopurinol 300 Mg Tab) 300 mg PO DAILY [facility] Last Admin: 10/19/23 08:19 Dose: 300 mg Alprazolam (Alprazolam 0.25 Mg Tablet) 0.5 mg PO BID PRN PRN Reason: ANXIETY Amiodarone HCl (Amiodarone Hcl 200 Mg Tab) 200 mg PO DAILY [facility] Last Admin: 10/19/23 08:18 Dose: 200 mg Amitriptyline HCl (Amitriptyline 25 Mg Tab) 25 mg PO BEDTIME [facility] Last Admin: 10/18/23 20:39 Dose: 25 mg Aspirin (Aspirin Ec 81 Mg Tab) 81 mg PO DAILY [facility] Last Admin: 10/19/23 08:17 Dose: 81 mg Atorvastatin Calcium (Atorvastatin 40 Mg Tab) 40 mg PO BEDTIME [facility] Last Admin: 10/18/23 20:39 Dose: 40 mg Bupropion HCl (Bupropion Hcl Xl 150 Mg Tab) 150 mg PO DAILY [facility] Last Admin: 10/19/23 08:18 Dose: 150 mg Calcium Carbonate (Calcium Carb 500mg/Vit D 200 Iu Tab) 1 tab PO DAILY [facility] Last Admin: 10/19/23 08:18 Dose: 1 tab Carvedilol (Carvedilol 12.5 Mg Tab) 6.25 mg PO BIDWM [facility] Last Admin: 10/19/23 17:06 Dose: 6.25 mg Clopidogrel Bisulfate (Clopidogrel 75 Mg Tablet) 75 mg PO DAILY [facility] Last Admin: 10/19/23 08:21 Dose: 75 mg Collagenase (Collagenase 30 Gm Ointment) 1 appl TOP DAILY [facility] Last Admin: 10/19/23 08:19 Dose: 1 appl Folic Acid (Folic Acid 1 Mg Tablet) 1 mg PO DAILY [facility] Last Admin: 10/19/23 08:18 Dose: 1 mg Furosemide (Furosemide 20 Mg/ 2ml Vial) 20 mg IV BIDL [facility] Last Admin: 10/19/23 17:05 Dose: 20 mg Gabapentin (Gabapentin 400 Mg Cap) 400 mg PO TID [facility] Last Admin: 10/19/23 13:22 Dose: 400 mg Home Med (Budesonide/Formoterol Fumarate [Symbicort 160-4.5 Mcg Inhaler]) 2 puff IH BID [facility] Last Admin: 10/17/23 20:03 Dose: Not Given Hydroxyzine HCl (Hydroxyzine Hcl 25 Mg Tab) 25 mg PO Q8HR PRN PRN Reason: ITCHING Piperacillin Sod/Tazobactam (Sod 3.375 gm/ Sodium Chloride) 100 mls @ 25 mls/hr IV Q8H [facility]; Protocol Last Admin: 10/19/23 17:05 Dose: 100 mls Ondansetron HCl (Ondansetron 4 Mg/2 Ml Vial) 4 mg IV Q6HP PRN PRN Reason: NAUSEA / VOMITING Rivaroxaban (Rivaroxaban 15 Mg Tablet) 15 mg PO DAILY [facility] Last Admin: 10/19/23 08:18 Dose: 15 mg Sertraline HCl (Sertraline Hcl 100 Mg Tab) 100 mg PO DAILY [facility] Last Admin: 10/19/23 08:17 Dose: 100 mg Spironolactone (Spironolactone 25 Mg Tablet) 25 mg PO DAILY [facility] Last Admin: 10/19/23 08:18 Dose: 25 mg Microbiology Results 10/16/23 12:52 Blood - Blood Aerobic Blood Culture - Preliminary No growth in 24 hours. 10/16/23 12:52 Blood - Blood Anaerobic Blood Culture - Preliminary No growth in 24 hours. 10/16/23 12:05 Blood - Blood Aerobic Blood Culture - Preliminary No growth in 24 hours. 10/16/23 12:05 Blood - Blood Anaerobic Blood Culture - Preliminary No growth in 24 hours. Assessment/ Plan: Nephrology No dyspnea No chest pain Back pain Denies BM No acute events overnight Vitals, medications, blood work and imaging reviewed in the chart NAD. Obese. MMM. NCAT. Normal Respiratory Effort. S1S2. ND Abd. No C/C/E. No rash. AAO. Normal speech. Heller Med CKD III -No NSAIDs Hypokalemia -Replete potassium HTN with CKD -Continue Coreg LE Edema -Continue furosemide & spironolactone Hypoalbuminemia -Encourage nutrition Anemia in chronic illness -Monitor H&H Hx Gout -Continue Allopurinol
[2023-10-19] MEDS: DOCUSATE NA 100 MG CAP PO SCH (21:12)
[2023-10-20 02:52] LABS: Specific Gravity 1.007 (1.005-1.030); Sqamous Epithelial None Seen /HPF (None Seen); Urine Bacteria None Seen /HPF (<20); Urine Bilirubin NEGATIVE (Negative); Urine Blood 3+ (OVER) (Negative); Urine Clarity Turbid (Clear); Urine Color Colorless (Yellow); Urine Culture Reflex Order NOT NEEDED; Urine Glucose NEGATIVE (Negative); Urine Ketones NEGATIVE (Negative); Urine Microscopic Reflex YN ORDER UMIC; Urine Nitrite NEGATIVE (Negative); Urine Protein NEGATIVE (Negative); Urine RBC >50 /HPF (None Seen); Urine Urobilinogen Normal (Normal); Urine WBC <5 /HPF (<5); Urine pH 6.5 (5.0-7.0)
--- NOTE | 2023-10-20 07:06 | TREADPHA ---
DX: CONGESTIVE HEART FAILURE, TROPININS Date of Study: 10/19/2023 Ht: 5' 7 " Wt: 270 lb 0 oz Consulting Physician: PASTOR MEDICATIONS: COREG, CARVEDOLOL, LASIX HISTORY: HYPERTENSION, CONGESTIVE HEART FAILURE, HYPERLIPIDEMIA. HISTORY OF LOWER LEFT VENOUS WOUND TIMES SEVEN YAERS. PHYSICIAL EXAMINATION: RESTING B.P.: 132/96 RESTING H.R.: 72 RESTING EKG: ATRIAL FIBRILLATION PROTOCOL: PHARMACOLOGIC EXERCISE TIME: 3:30 B.P. AT PEAK STRESS: 177/77 IMPRESSION: LEXISCAN STRESS TEST PERFORMED ORDERED. CARDIOLITE INJECTED PER PROTOCOL (SEE NUCLEAR MEDICINE REPORT). NO SUPRAVENTRICULAR TACHYCARDIA, VENTRICULAR TACHYCARDIA OR CHEST PAIN. LEFT SHOULDER TIGHTNESS BEFORE PROCEDURE. PATIENT STATES MILD SHORTNESS OF BREATH AND CHEST TIGHTNESS DURING PROCEDURE, RESOLVED AFTER EXAM COMPLETED. PREMATURE VENTRICULAR COMPLEXES NOTED THROUGHOUT STRESS TEST, PRE AND POST. NO ELECTROCARDIOGRAM CHANGES OF ISCHEMIA WITH LEXISCAN.
--- NOTE | 2023-10-20 08:13 | P.CNS ---
Date of Consult: 10/20/23 Reason for Consult: Respiratory failure hypotension Chief Complaint: Bradycardia with hypotension History of Present Illness: Patient is 68 years of age admitted with syncopal attack cording to the H&P she is very noncompliant with her medication she has been hospitalized twice last time at [facility] again she had a syncopal attack him to the emergency room lethargic multiple falls also has a history of obstructive sleep apnea noncompliant with CPAP noted to have low blood pressure history of congestive heart failure COPD patient is an active smoker uses inhalers at home. To the ICU because of bradycardia and hypotension she is doing much better planing of some diarrhea history of A-fib has a chronic wound in the left leg /Denies any fever or chills for no evidence of coronary artery disease the troponins were mildly elevated Allergies insect venom Adverse Reaction (Verified 05/25/19 00:45) Anaphylaxis Home Medications: Amiodarone HCl [Cordarone*] 200 mg PO DAILY 05/25/19 Magnesium Oxide [Magnesium] 250 mg PO DAILY 05/25/19 Triamcinolone 0.1% Oint [Kenalog 0.1% Ointment*] 1 appl TOP BID PRN 05/25/19 Zinc Sulfate [Zinc Sulfate*] 220 mg PO DAILY 05/25/19 carvediloL [Coreg*] 25 mg PO BID 05/25/19 Fluocinonide [Lidex] 1 appl TD DAILY 08/10/19 Budesonide/Formoterol Fumarate [Symbicort 160-4.5 Mcg Inhaler] 2 puff IH BID #1 hfa.aer.ad 08/15/19 ALPRAZolam [Xanax*] 1 tab PO BID PRN 03/11/22 Allopurinol 1 tab PO DAILY 03/11/22 Amitriptyline HCl 1 tab PO DAILY 03/11/22 Amlodipine Besylate [Norvasc] 1 tab PO DAILY 03/11/22 Collagenase [Santyl Ointment*] 250 units TOP DAILY 03/11/22 Ferrous Sulfate 1 tab PO DAILY 03/11/22 Hydralazine HCl 1 tab PO Q8HR PRN 03/11/22 Losartan Potassium 1 tab PO DAILY 03/11/22 Mupirocin Cream [Bactroban 2% Cream*] 1 dose TOP BID 03/11/22 SUMAtriptan succinate [Sumatriptan Succinate] 100 mg PO BID PRN 03/11/22 Sertraline HCl 1 tab PO DAILY 03/11/22 Spironolactone 25 mg PO DAILY 03/11/22 Tizanidine HCl 4 mg PO TID PRN 03/11/22 Topiramate 2 tab PO BID 03/11/22 Trazodone HCl 1 tab PO BEDTIME 03/11/22 Vitamin E (Dl,Tocopheryl Acet) [Vitamin E] 1 cap PO BID 03/11/22 buPROPion HCL [Wellbutrin Xl] 1 tab PO DAILY 03/11/22 hydrOXYzine pamoate [Hydroxyzine Pamoate] 1 tab PO Q8HR PRN 03/11/22 Atorvastatin Calcium [Lipitor] 40 mg PO BEDTIME #30 tab 03/13/22 metOLazone [Zaroxolyn*] 2.5 mg PO M,W,F #15 tab 03/13/22 Aspirin [Aspirin EC] 81 mg PO DAILY 10/16/23 Calcium Carbonate/Vitamin D3 [Calcium 500-Vit D3 200 Tablet] 1 tab PO DAILY 10/16/23 Clopidogrel Bisulfate [Plavix*] 1 tab PO DAILY 10/16/23 Collagenase [Santyl Ointment] 1 appl TOP DAILY 10/16/23 Folic Acid 0.8 mg PO DAILY 10/16/23 Furosemide 80 mg PO DAILY 10/16/23 Gabapentin [Neurontin] 400 mg PO TID 10/16/23 LIDOCAINE 5% Ointment [Lidocaine HCl*] 1 appl TOP DAILY 10/16/23 Levalbuterol [Xopenex*] 0.63 mg NEB Q6H PRN 10/16/23 Magnesium Oxide [Magnesium] 250 mg PO DAILY 10/16/23 Multivit-Minerals/Folic/Ginkgo [One Daily Women's 50+ Tablet] 1 tab PO DAILY 10/16/23 Rivaroxaban [Xarelto*] 15 mg PO DAILY 10/16/23 Tumeric/Ging/[place]/Oreg/Capryl [Candicidal Capsule] 1 each PO DAILY 10/16/23 Vitamin B Complex [B Complex] 1 tab PO DAILY 10/16/23 - Past Medical/Surgical History Diabetic: No -: Obstructive sleep apnea -: HTN -: CHF -: Gout -: Venous insufficiency -: Tobacco abuse -: Morbid obesity -: afib -: Skin graft -: x2 -: vein removal on R leg (2014) Psychosocial/ Personal History: The patient is recently . - Family History Mother Medical History: Diabetes Notes: Alzheimer's Father History Unknown: Yes Medical History: Heart disease, Stroke Brother Medical History: Heart disease, Diabetes - Social History Smoking Status: Current every day smoker Alcohol use: No CD- Drugs: No Caffeine use: No Place of Residence: Home Review of Systems 10-point ROS is otherwise unremarkable General: Weakness Respiratory: Shortness of Breath Gastrointestinal: Constipation Physical Examination Temp Pulse Resp BP Pulse Ox 97.4 F 85 14 151/108 H 98 10/20/23 04:00 10/20/23 04:00 10/20/23 04:00 10/20/23 04:00 10/20/23 04:00 General: Alert, In no apparent distress, Oriented x3 Neck: Supple Respiratory: Clear to auscultation bilaterally Cardiovascular: No edema, Regular rate/rhythm, Normal S1 S2 Gastrointestinal: Normal bowel sounds, Soft and benign - Problems (1) COPD exacerbation Current Visit: Yes Status: Acute Plan: Patient is 68 years of age very noncompliant has been following recently hospitalized twice with hypoxic hypercapnic heavy smoker apparently she uses Symbicort and Breztri at home history of bradycardia hypotension recurrent falls patient seems to have improved echocardiogram shows diastolic dysfunction cardiac stress test no evidence of ischemia patient has atrial fibrillation oxygenation is satisfactory DC Zosyn no evidence of sepsis white count is normal oxygenation satisfactory on room air blood pressure is mildly elevated cultures are so far negative DC Heller catheter ambulate labs reviewed mild impairment of renal function echocardiogram shows diastolic dysfunction (2) Sleep apnea Current Visit: Yes Status: Acute Plan: Patient has a history of obstructive sleep apnea noncompliance complaining of snoring excessive daytime somnolence Qualifiers: Primary sleep apnea of type: obstructive
[2023-10-20 09:24] LABS: Albumin 3.1 g/dL (3.4-5.0); Phosphorus 3.8 mg/dL (2.5-4.9)
[2023-10-20 10:51] VITALS: O2SAT 100
--- NOTE | 2023-10-20 13:12 | P.DS ---
Admission Date: 10/18/23 Discharge Date: 10/20/23 Disposition: ROUTINE DISCHARGE Discharge Condition: GOOD Reason for Admission: Bradycardia with hypotension Brief History of Present Illness: Patient is a 68-year-old female who presents to the emergency room with lethargy. Patient had has been very noncompliant with taking her medications. Family appears to be very frustrated with her not being compliant with following up with doctors. Patient came into the emergency room very lethargic after she had fallen. She has had multiple falls for the last 10 days. Apparently when she falls, she lays down and falls asleep. Whenever EMS gets there her blood pressure is significantly low. Her blood pressure has been in the 70s over 30s. She has been told she has congestive heart failure. She follows up with cardiology, Dr. Rivera. She was scheduled for an EP study with, Dr. Morgan, but apparently she was not able to get the study performed. Patient denies any other medical issues. She appears very lethargic and obtunded. At this time, she will be admitted to the hospital into the ICU because of bradycardia with hypotension. She is on numerous blood pressure medications, and these need to be reviewed. Patient will be admitted to the ICU with close monitoring. Patient has a history of atrial fibrillation, and she has been on antiarrhythmics and anticoagulation. She also has a wound on the left leg that she has been following with wound care. Patient follows up with her primary care provider, Dr. Herrera. Hospital Course: Patient is a 68 yo female with past medical history of A. fib, Lymphedema, morbid obesity, CKD stage III, peripheral arterial disease, Htn and right heel pressure ulcer who presented with bradycardia and hypotension non-compliance with home mes. Her family was frustrated that pt was not taking the meds as prescribed by her doctors. On admission, pt was bradycardic and hypotensive. We held her BP meds and slowly resumed them as BP permitted. We observed her in the ICU and the bradycardia resolved. We later resumed xarelto, coreg and amiodarone for A. fib. Pt had elevated troponin and we did NM stress test which was unremarkable for stress induced ischemia[place] [address] and Echo showed EF 55 - 60%. Pt has metabolic encephalopathy, likely due to hypoxia / hypercapnea given history of BEATRICE and OHS. We continued BIPAP and later weaned her to oxygen. We continued wound care for the right leg ulcer. Pt was advised to lose weight. We encouraged her to take her home ed as prescribed. Pt was in NAD prior to discharge. Vital Signs/Physical Exam: Temp Pulse Resp BP Pulse Ox 97.3 F 63 16 129/70 96 10/20/23 12:00 10/20/23 12:00 10/20/23 12:00 10/20/23 12:00 10/20/23 12:00 Laboratory Data at Discharge: WBC 4.60 thou/uL (4.3-10.9) 10/19/23 04:17 Hgb 10.3 g/dL (12.0-15.0) L 10/19/23 04:17 Hct 32.9 % (36.0-45.0) L 10/19/23 04:17 Plt Count 184 thou/uL (152-406) 10/19/23 04:17 PT 12.7 SECONDS (9.5-12.5) H 10/16/23 12:05 INR 1.16 10/16/23 12:05 Sodium 137 mEq/L (136-145) 10/20/23 08:04 Potassium 4.0 mEq/L (3.5-5.1) D 10/20/23 08:04 BUN 21 mg/dL (7-18) H 10/20/23 08:04 Creatinine 1.12 mg/dL (0.55-1.02) H 10/20/23 08:04 Glucose 91 mg/dL (74-106) 10/20/23 08:04 Uric Acid 5.0 mg/dL (2.6-6.0) 10/20/23 08:04 Phosphorus 3.8 mg/dL (2.5-4.9) 10/20/23 08:04 Magnesium 1.8 mg/dL (1.6-2.4) 10/18/23 04:20 Total Bilirubin 0.5 mg/dL (0.2-1.0) 10/18/23 04:20 AST 19 U/L (15-37) 10/18/23 04:20 ALT 18 U/L (13-56) 10/18/23 04:20 Alkaline Phosphatase 88 U/L (45-117) 10/18/23 04:20 Lipase 27 U/L (13-75) 10/16/23 12:05 Home Medications: Amiodarone HCl [Cordarone*] 200 mg PO DAILY 05/25/19 Magnesium Oxide [Magnesium] 250 mg PO DAILY 05/25/19 Triamcinolone 0.1% Oint [Kenalog 0.1% Ointment*] 1 appl TOP BID PRN 05/25/19 Zinc Sulfate [Zinc Sulfate*] 220 mg PO DAILY 05/25/19 Fluocinonide [Lidex] 1 appl TD DAILY 08/10/19 Budesonide/Formoterol Fumarate [Symbicort 160-4.5 Mcg Inhaler] 2 puff IH BID #1 hfa.aer.ad 08/15/19 ALPRAZolam [Xanax*] 1 tab PO BID PRN 03/11/22 Allopurinol 1 tab PO DAILY 03/11/22 Amitriptyline HCl 1 tab PO DAILY 03/11/22 Amlodipine Besylate [Norvasc] 1 tab PO DAILY 03/11/22 Collagenase [Santyl Ointment*] 250 units TOP DAILY 03/11/22 Ferrous Sulfate 1 tab PO DAILY 03/11/22 Mupirocin Cream [Bactroban 2% Cream*] 1 dose TOP BID 03/11/22 SUMAtriptan succinate [Sumatriptan Succinate] 100 mg PO BID PRN 03/11/22 Sertraline HCl 1 tab PO DAILY 03/11/22 Spironolactone 25 mg PO DAILY 03/11/22 Tizanidine HCl 4 mg PO TID PRN 03/11/22 Topiramate 2 tab PO BID 03/11/22 Trazodone HCl 1 tab PO BEDTIME 03/11/22 Vitamin E (Dl,Tocopheryl Acet) [Vitamin E] 1 cap PO BID 03/11/22 buPROPion HCL [Wellbutrin Xl] 1 tab PO DAILY 03/11/22 hydrOXYzine pamoate [Hydroxyzine Pamoate] 1 tab PO Q8HR PRN 03/11/22 Atorvastatin Calcium [Lipitor] 40 mg PO BEDTIME #30 tab 03/13/22 metOLazone [Zaroxolyn*] 2.5 mg PO M,W,F #15 tab 03/13/22 Aspirin [Aspirin EC] 81 mg PO DAILY 10/16/23 Calcium Carbonate/Vitamin D3 [Calcium 500-Vit D3 200 Tablet] 1 tab PO DAILY 10/16/23 Clopidogrel Bisulfate [Plavix*] 1 tab PO DAILY 10/16/23 Collagenase [Santyl Ointment*] 1 appl TOP DAILY 10/16/23 Folic Acid 0.8 mg PO DAILY 10/16/23 Furosemide 80 mg PO DAILY 10/16/23 Gabapentin [Neurontin*] 400 mg PO TID 10/16/23 LIDOCAINE 5% Ointment [Lidocaine HCl*] 1 appl TOP DAILY 10/16/23 Levalbuterol [Xopenex*] 0.63 mg NEB Q6H PRN 10/16/23 Magnesium Oxide [Magnesium] 250 mg PO DAILY 10/16/23 Multivit-Minerals/Folic/Ginkgo [One Daily Women's 50+ Tablet] 1 tab PO DAILY 10/16/23 Rivaroxaban [Xarelto*] 15 mg PO DAILY 10/16/23 Tumeric/Ging/[place]/Oreg/Capryl [Candicidal Capsule] 1 each PO DAILY 10/16/23 Vitamin B Complex [B Complex] 1 tab PO DAILY 10/16/23 carvediloL [Coreg*] 12.5 mg PO BIDWM 30 Days #60 tab 10/20/23 New Medications: carvediloL [Coreg*] 12.5 mg PO BIDWM 30 Days #60 tab Physician Discharge Instructions: Continue ad columba activity. Take coreg 12.5mg po BID, amiodarone, xarelto and other home meds. Stop taking hydralazine and losartan. Follow up with PCP and cardiology within 1 - 2 weeks. Diet: AHA Activity: Ad columba Followup: Toi Herrera DO [Primary Care Provider] -
[2023-10-20 16:57] VITALS: BP 148/70; TEMP 97.5
[2023-10-20] MEDS ORDERED: carvediloL 12.5 MG TAB PO SCH (17:00)
--- NOTE | 2023-10-20 21:06 | PN ---
Date of Progress Note: 10/20/2023 Subjective: Seen by bedside. No chest pain. No shortness of breath. Review of Systems: No chest pain, shortness of breath, orthopnea, or cough. No nausea, vomiting, or diarrhea. All othe r systems were reviewed, they were negative. Objective: Vital Signs: Reviewed. Head and Neck: Pupils are equal, reactive to light. Intact eye movements. No JVD. No cervical lym phadenopathy. Neck is supple. Thyroid is not enlarged. Lungs: Clear to auscultation bilaterally. No rhonchi, wheezing, or crackles. No accessory muscle u se. Heart: Regular rate and rhythm. No extra sounds. Abdomen: Soft, nontender. Bowel sounds positive. No organomegaly. No masses or hernia. No rigidi ty or rebound. Extremities: No edema, clubbing, or cyanosis. Intact pulses. Skin: No rash or nodule. Neurologic: Alert, awake, oriented x3. No acute focal deficits appreciated. Lymph Nodes: No cervical or axillary lymphadenopathy. Investigations: Labs were reviewed. Stress test was negative, and BUN 21 and creatinine 1.1. Assessment And Recommendations: 1.Elevated troponin. This is demand. Stress test was negative. No further workup is needed. 2.Acute on chronic diastolic heart failure, stable. Continue current management. 3.Atrial fibrillation with slow ventricular rate. I would keep her off the amiodarone and keep her on beta-jose eduardo, then discharge and continue Xarelto. SR/MODL Voice ID: [id number] Report ID: [id number]
== END 2023-10-20 17:07 | disposition home health service (06) | DRG 917 ==
LOC: ER 11:48 → ERHOLD 13:56 → 3RD-ICU 16:03 → OBSVTOIN 10-18 20:02 → 4TH 10-19 13:04
PROVIDERS: ADMIT Hospitalist; ATTEND Hospitalist
PROC: 4A033R1 Measurement of Arterial Saturation, Peripheral, Percutaneous Approach (ICD-10-PCS; principal; 2023-10-16)
PROC: 5A09457 Assistance with Respiratory Ventilation, 24-96 Consecutive Hours, Continuous Positive Airway Pressure (ICD-10-PCS; 2023-10-17)
PROC: 0T9B70Z Drainage of Bladder with Drainage Device, Via Natural or Artificial Opening (ICD-10-PCS; 2023-10-20)
DX: T46.2X1A Poisoning by other antidysrhythmic drugs, accidental (unintentional), initial encounter (principal); G93.41 Metabolic encephalopathy; J96.22 Acute and chronic respiratory failure with hypercapnia; J96.01 Acute respiratory failure with hypoxia; I50.33 Acute on chronic diastolic (congestive) heart failure; Z68.41 Body mass index [BMI] 40.0-44.9, adult; I48.20 Chronic atrial fibrillation, unspecified; E66.2 Morbid (severe) obesity with alveolar hypoventilation; I87.312 Chronic venous hypertension (idiopathic) with ulcer of left lower extremity; L97.322 Non-pressure chronic ulcer of left ankle with fat layer exposed; E87.20 Acidosis, unspecified; I13.0 Hypertensive heart and chronic kidney disease with heart failure and stage 1 through stage 4 chronic kidney disease, or unspecified chronic kidney disease; J44.1 Chronic obstructive pulmonary disease with (acute) exacerbation; I24.89 Other forms of acute ischemic heart disease; N18.30 Chronic kidney disease, stage 3 unspecified; D63.1 Anemia in chronic kidney disease; E87.6 Hypokalemia; I95.9 Hypotension, unspecified; M10.9 Gout, unspecified; I48.91 Unspecified atrial fibrillation; L89.612 Pressure ulcer of right heel, stage 2; I89.0 Lymphedema, not elsewhere classified; I73.9 Peripheral vascular disease, unspecified; E88.09 Other disorders of plasma-protein metabolism, not elsewhere classified; R00.1 Bradycardia, unspecified; R29.6 Repeated falls; Z91.81 History of falling; Z79.01 Long term (current) use of anticoagulants; Z79.82 Long term (current) use of aspirin; Z79.02 Long term (current) use of antithrombotics/antiplatelets; Z91.09 Other allergy status, other than to drugs and biological substances; Z79.899 Other long term (current) drug therapy; Z91.148 Patient's other noncompliance with medication regimen for other reason; Z91.199 Patient's noncompliance with other medical treatment and regimen due to unspecified reason
CPT/HCPCS: 36415; 36600; 51702; 70450; 71045; 71250; 72125; 78452; 80048; 80053; 80069; 80076; 80162; 80307; 81001; 82805; 83605; 83690; 83735; 83880; 84439; 84443; 84484; 84550; 85025; 85610; 87040; 93005; 93017; 93306; 94660; 94760; 96360; 97110; 97116; 97161; 97530; 99285; A9500; G0378; J1644; J1940; J2543; J2785; J3590

== ENCOUNTER 2023-12-28 08:51 | Inpatient (IN) | payer OTHER, BC ==
--- NOTE | 2023-12-28 09:21 | RAD REPORT ---
EXAM DESCRIPTION: CT - Ct Stroke Brain Wo Cont - 12/28/2023 9:14 am CLINICAL HISTORY: STROKE ALERT COMPARISON: Ct Stroke Brain Wo Cont dated 08/11/2023; Head Brain Wo Cont dated 03/10/2022; Neck Angio dated 12/28/2023; Head angio dated 12/28/2023 TECHNIQUE: Noncontrast head CT images were obtained without IV contrast. Multiplanar reformats were generated and reviewed. All CT scans are performed using dose optimization technique as appropriate and may include automated exposure control or mA/KV adjustment according to patient size. FINDINGS: No intracranial hemorrhage, mass, or edema. Midline structures are unremarkable. Normal ventricular caliber for age. Macias-white matter differentiation is preserved, without evidence of acute infarct. No abnormal extra- axial fluid collections. Mastoid air cells and visualized portions of the paranasal sinuses are clear. No acute bony findings. IMPRESSION: No evidence of an acute intracranial process. The findings were communicated to Dwight Oneal on 12/28/2023 at 09:11 hours.
[2023-12-28 09:31] LABS: Absolute Eosinophils 0.1 K/uL (0-0.5); Absolute Lymphocytes (CBC) 0.9 K/uL (0.7-4.9); Absolute Monocytes 0.4 K/uL (0.1-1.3); Absolute Neutrophil 3.6 K/uL (1.8-8.0); Basophils % 0.5 % (0-1.3); Eosinophils % 1.2 % (0-4.4); Hematocrit 36.3 % (36.0-45.0); Hemoglobin 11.7 g/dL (12.0-15.0); Lymphocytes % 17.4 % (15.3-44.8); MCH 30.7 pg (27.0-35.0); MCHC 32.3 g/dL (32.0-36.0); MPV 9.5 fL (7.6-11.3); Monocytes % 8.7 % (3.3-12.3); Neutrophils % 72.2 % (41.7-73.7); Nucleated Red Blood Cells % 0.1 % (0-0); Platelets 204 thou/uL (152-406); RBC Red Blood Cell Count 3.82 M/uL (3.86-4.86); Red Cell Distribution Width 15.4 % (12.1-15.2)
[2023-12-28 09:43] LABS: PT Prothrombin Time 12.7 SECONDS (9.5-12.5); PTT, Activated Partial Thromb 30.4 SECONDS (24.3-36.9); Protime INR 1.16
[2023-12-28 09:52] LABS: Anion Gap 7.7 mEq/L (5.0-15.0); Potassium 3.7 mEq/L (3.5-5.1)
[2023-12-28 09:54] LABS: Troponin High Sensitivity 114.3 pg/mL (<58.9)
--- NOTE | 2023-12-28 10:00 | RAD REPORT ---
EXAM DESCRIPTION: CT - Neck Angio - 12/28/2023 9:14 am CLINICAL HISTORY: slurred speech, weakness COMPARISON: No comparisons TECHNIQUE: Axial CT angiography images of the neck was performed with multiplanar and maximum intens ity projection reconstructions. Images performed following intravenous administration of 100mL Isovue 370. All CT scans are performed using dose optimization technique as appropriate and may include automated exposure control or mA/KV adjustment according to patient size. Quantification of carotid stenosis, if any, is performed according to NASCET criteria. FINDINGS: A left aortic arch is identified with normal three vessel configuration of the great vesse ls. No significant flow abnormality is seen of the common carotid bilaterally. No significant stenosis is identified involving the cervical segments of both internal carotid arteri es. Mild atherosclerotic changes at the carotid bulbs. Normal flow is seen within both vertebral arteries. IMPRESSION: No significant flow abnormality of the neck vessels is identified. The findings were communicated to Soto Guillen on 12/28/2023 at 09:23 hours. CAROTID STENOSIS REFERENCE USING NASCET CRITERIA: % ICA stenosis = (1 - narrowest ICA diameter/diameter of distal cervical ICA) x 100. Mild - <50% stenosis. Moderate - 50-69% stenosis. Severe - 70-94% stenosis. Near occlusion - 95-99% stenosis. Occluded - 100% stenosis.
--- NOTE | 2023-12-28 10:03 | RAD REPORT ---
EXAM DESCRIPTION: CT - Head angio - 12/28/2023 9:14 am CLINICAL HISTORY: slurred speech, weakness COMPARISON: Ct Stroke Brain Wo Cont dated 12/28/2023; Ct Stroke Brain Wo Cont dated 08/11/2023 TECHNIQUE: Axial CT angiography images of the head was performed with multiplanar and maximum intens ity projection reconstructions. Images performed following intravenous administration of 100mL Isovue 370. All CT scans are performed using dose optimization technique as appropriate and may include automated exposure control or mA/KV adjustment according to patient size. FINDINGS: No evidence of large vessel occlusion. Focal up to moderate stenosis of the proximal right M1, with some mild poststenotic dilation, see series 408, image 59. Aplastic right A1 segment. Paten t anterior communicating artery with a saccular 4 mm aneurysm projecting superiorly and to the right. No evidence of dissection is detected. No other flow-limiting stenosis or vascular malformation iden tified. Antegrade flow is seen in the vertebral arteries. The vertebral arteries are codominant. The visualized dural venous sinuses are grossly patent. IMPRESSION: Focal up to moderate stenosis of the right proximal M1 segment. No evidence of large vessel occlusion or other flow-limiting stenosis. 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.
[2023-12-28] MEDS ORDERED: NA CHLORIDE 0.9% 250 ML ONE (10:26)
[2023-12-28] MEDS ORDERED: ASPIRIN 325 MG TAB ONE (11:49)
[2023-12-28] MEDS ORDERED: HYDROCODONE/APAP 7.5/325 MG TAB ONE (11:50)
--- NOTE | 2023-12-28 12:26 | RAD REPORT ---
EXAM DESCRIPTION: RADChest Single View12/28/2023 10:05 am CLINICAL HISTORY: slurred speech, weakness COMPARISON: Chest Single View dated 10/16/2023; Chest Single View dated 09/29/2023; Chest Single View d ated 08/11/2023; Chest Single View dated 08/04/2023 TECHNIQUE: Portable AP view of the chest. FINDINGS: Progressive central interstitial prominence since the prior exam. Possible small left pleu ral effusion. No pneumothorax or right effusion. Moderate cardiomegaly. Mediastinal contours are unr emarkable. IMPRESSION: Findings suggestive of central venous congestion/CHF, progressive since the prior exam.
[2023-12-28 13:15] VITALS: BMI 42.1
--- NOTE | 2023-12-28 14:12 | EKG ---
Test Date: 2023-12-28 Test Time: 09:20:06 Gluing Machine Operator Electronic: SHANKAR MEASUREMENT RESULTS: Intervals: Rate: 49 IL: 186 QRSD: 108 QT: 566 QTc: 511 [place]: P: 84 IL: 186 QRS: 18 T: 49 INTERPRETIVE STATEMENTS: Marked sinus bradycardia with premature supraventricular complexes Nonspecific T wave abnormality Prolonged QT Abnormal ECG Compared to ECG 10/16/2023 12:05:38 Atrial premature complex(es) now present T-wave abnormality now present First degree AV block no longer present ST (T wave) deviation no longer present Electronically Signed On 12-28-23 14:10:31 CDT by Blake Raphael
--- NOTE | 2023-12-28 14:51 | P.HP ---
Certification for Inpatient Patient admitted to: Observation With expected LOS: <2 Midnights Patient will require the following post-hospital care: None Practitioner: I am a practitioner with admitting privileges, knowledge of patient current condition, hospital course, and medical plan of care. Services: Services provided to patient in accordance with Admission requirements found in Title 42 Section 412.3 of the Code of Federal Regulations Patient History Date of Service: 12/28/23 Reason for admission: Left-sided weakness History of Present Illness: 68-year-old female with history of chronic diastolic congestive heart failure, atrial flutter on chronic anticoagulation with Xarelto, hypertension, gout, COPD/BEATRICE presented to the emergency department with chief complaint of left- sided weakness and slurred speech. Last known well was 2200 on 12/26, around 3 AM it was noted she was having difficulty with ambulation as well as left upper extremity weakness, difficulty with speech. Upon arrival to ED patient was out of the window for TNK, she also takes Xarelto. CT head without contrast was negative for acute findings. CTA head shows focal, up to moderate stenosis of the right proximal M1 segment without evidence of large vessel occlusion or other flow-limiting stenosis. Incidentally noted 4 mm anterior connecting artery aneurysm. CTA neck negative for LVO, did demonstrate soft tissue fullness in the region of the supraglottic larynx with asymmetric thickening of the right aryepiglottic fold. Her labs are significant for mildly elevated high-sensitivity troponin initially 114.3. Creatinine 1.43. Patient is left-sided weakness improved during her ED stay and is near baseline at this time, ED provider wishes to admit under observation for left-sided weakness, suspected TIA. She reports she has been compliant with her medications. Allergies insect venom Adverse Reaction (Verified 05/25/19 00:45) Anaphylaxis Home Medications: Amiodarone HCl [Cordarone*] 200 mg PO DAILY 05/25/19 Magnesium Oxide [Magnesium] 250 mg PO DAILY 05/25/19 Triamcinolone 0.1% Oint [Kenalog 0.1% Ointment*] 1 appl TOP BID PRN 05/25/19 Zinc Sulfate [Zinc Sulfate*] 220 mg PO DAILY 05/25/19 Fluocinonide [Lidex] 1 appl TD DAILY 08/10/19 Budesonide/Formoterol Fumarate [Symbicort 160-4.5 Mcg Inhaler] 2 puff IH BID #1 hfa.aer.ad 08/15/19 ALPRAZolam [Xanax*] 1 tab PO BID PRN 03/11/22 Allopurinol 1 tab PO DAILY 03/11/22 Amitriptyline HCl 1 tab PO DAILY 03/11/22 Amlodipine Besylate [Norvasc] 1 tab PO DAILY 03/11/22 Collagenase [Santyl Ointment*] 250 units TOP DAILY 03/11/22 Ferrous Sulfate 1 tab PO DAILY 03/11/22 Mupirocin Cream [Bactroban 2% Cream*] 1 dose TOP BID 03/11/22 SUMAtriptan succinate [Sumatriptan Succinate] 100 mg PO BID PRN 03/11/22 Sertraline HCl 1 tab PO DAILY 03/11/22 Spironolactone 25 mg PO DAILY 03/11/22 Tizanidine HCl 4 mg PO TID PRN 03/11/22 Topiramate 2 tab PO BID 03/11/22 Trazodone HCl 1 tab PO BEDTIME 03/11/22 Vitamin E (Dl,Tocopheryl Acet) [Vitamin E] 1 cap PO BID 03/11/22 buPROPion HCL [Wellbutrin Xl] 1 tab PO DAILY 03/11/22 hydrOXYzine pamoate [Hydroxyzine Pamoate] 1 tab PO Q8HR PRN 03/11/22 Atorvastatin Calcium [Lipitor] 40 mg PO BEDTIME #30 tab 03/13/22 metOLazone [Zaroxolyn*] 2.5 mg PO M,W,F #15 tab 03/13/22 Aspirin [Aspirin EC] 81 mg PO DAILY 10/16/23 Calcium Carbonate/Vitamin D3 [Calcium 500-Vit D3 200 Tablet] 1 tab PO DAILY 10/16/23 Clopidogrel Bisulfate [Plavix*] 1 tab PO DAILY 10/16/23 Collagenase [Santyl Ointment*] 1 appl TOP DAILY 10/16/23 Folic Acid 0.8 mg PO DAILY 10/16/23 Furosemide 80 mg PO DAILY 10/16/23 Gabapentin [Neurontin*] 400 mg PO TID 10/16/23 LIDOCAINE 5% Ointment [Lidocaine HCl*] 1 appl TOP DAILY 10/16/23 Levalbuterol [Xopenex*] 0.63 mg NEB Q6H PRN 10/16/23 Magnesium Oxide [Magnesium] 250 mg PO DAILY 10/16/23 Multivit-Minerals/Folic/Ginkgo [One Daily Women's 50+ Tablet] 1 tab PO DAILY 10/16/23 Rivaroxaban [Xarelto*] 15 mg PO DAILY 10/16/23 Tumeric/Ging/[place]/Oreg/Capryl [Candicidal Capsule] 1 each PO DAILY 10/16/23 Vitamin B Complex [B Complex] 1 tab PO DAILY 10/16/23 carvediloL [Coreg*] 12.5 mg PO BIDWM 30 Days #60 tab 10/20/23 - Past Medical/Surgical History Has patient received pneumonia vaccine in the past: Yes Diabetic: No -: Obstructive sleep apnea -: HTN -: CHFdiastolic -: Gout -: Venous insufficiency -: Tobacco abuse -: Morbid obesity -: Atrial flutter -: Anterior communicating artery aneurysm4 mm -: Focal moderate M1 stenosis -: Skin graft -: x2 -: vein removal on R leg (2014) Psychosocial/ Personal History: Lives at home with family - Family History Mother -: Diabetes Notes: Alzheimer's Father -: Heart disease, Stroke Brother -: Heart disease, Diabetes - Social History Smoking Status: Current every day smoker Alcohol use: No CD- Drugs: No Caffeine use: No Place of Residence: Home Review of Systems 10-point ROS is otherwise unremarkable Neurological: Weakness (Left-sided upper extremity weakness), Change in Speech Physical Examination - Physical Exam General: Alert, In no apparent distress, Oriented x3 HEENT: Atraumatic, PERRLA, EOMI Neck: Supple, 2+ carotid pulse no bruit, No LAD Respiratory: Clear to auscultation bilaterally, Normal air movement Cardiovascular: Regular rate/rhythm, Normal S1 S2 Gastrointestinal: Normal bowel sounds, No tenderness Musculoskeletal: No tenderness Integumentary: No rashes Neurological: Normal gait, Normal speech, Normal tone, Normal affect, Other (4/5 strength left upper extremity, other extremities normal, NIH 1) - Studies Laboratory Data (last 24 hrs) 12/28/23 12/28/23 12/28/23 09:24 09:24 09:24 WBC 5.00 Hgb 11.7 L Hct 36.3 Plt Count 204 PT 12.7 H INR 1.16 APTT 30.4 Sodium 139 Potassium 3.7 BUN 26 H Creatinine 1.43 H Glucose 125 H Assessment and Plan - Plan Assessment: Left-sided weakness-suspected TIA Right proximal M1 segment focal stenosis-moderate 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 Atrial flutter on chronic anticoagulation Hypertension EDELMIRA Chronic diastolic congestive heart failure Gout COPD/BEATRICE Soft tissue fullness supraglottic larynx with asymmetric thickening of the right aryepiglottic fold Plan: Left-sided weakness-suspected TIA Right proximal M1 segment focal stenosis-moderate 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 Was not a candidate for TNK given Xarelto use, onset of symptoms Symptoms improving, NIH score is 1 with left upper extremity weakness Continue Xarelto, aspirin ED discussed case with neurology, no intervention recommended at this time Will obtain MRI brain without contrast to evaluate for CVA Blood pressure has been low today, hold oral antihypertensives Allow for some permissive hypertension, restart blood pressure medications as appropriate Atrial flutter on chronic anticoagulation Continue Xarelto monitor on telemetry Resume rate control medications when verified Hypertension EDELMIRA Blood pressure currently soft Hold oral antihypertensive agents, resume as appropriate Continue gentle IV fluids overnight Chronic diastolic congestive heart failure Does not appear grossly overloaded at this time Will obtain echocardiogram Hold diuretics today, likely will resume tomorrow Gout COPD/BEATRICE Continue home medications, CPAP at night as needed Soft tissue fullness supraglottic larynx with asymmetric thickening of the right aryepiglottic fold Discussed findings with patient as well as recommendation for outpatient ENT evaluation DVT PPX: Continue Xarelto Code status: Full Discharge Plan: Home Plan to discharge in: 24 Hours - Advance Directives Does patient have a Living Will: No Does patient have a Durable POA for Healthcare: No Critical Care: Yes (Full code) Time Spent Managing Pts Care (In Minutes): 70
--- NOTE | 2023-12-28 16:11 | RAD REPORT ---
EXAM DESCRIPTION: MRI - Brain Wo Cont - 12/28/2023 4:06 pm CLINICAL HISTORY: left sided weakness Headache, drowsiness, CVA symptomology COMPARISON: Head angio dated 12/28/2023; Brain Wo Cont dated 08/11/2023 TECHNIQUE: Multi-sequence, multiplanar MR imaging of the brain was performed without contrast. FINDINGS: No intracranial hemorrhage, hydrocephalus or extra-axial fluid collections.Moderate conflu ent T2/FLAIR hyperintensity in the periventricular and deep white matter is present compatible with c hronic microvascular ischemic changes. No edema or shift of midline structures. No findings to suspec t brain mass. DWI is negative for acute CVA. Midline structures are normally formed. Mastoid air cells and paranasal sinuses are clear. IMPRESSION: Negative for acute CVA or other acute intracranial process.
--- NOTE | 2023-12-28 17:59 | ER ---
Nurse's Notes [facility] Name: Mellisa Patterson Age: 68 yrs Sex: Female : 1955 Arrival Date: 12/28/2023 Time: 08:51 Bed 2 Private MD: Diagnosis: Cerebral infarction, unspecified;Weakness;Slurred speech;Hypotension, unspecified Presentation: 12/27 09:34 Chief complaint: EMS states: Left sided weakness and slurred speech upon waking today. hb Last known normal was 10pm last night. Coronavirus screen: At this time, the client does not indicate any symptoms associated with coronavirus-19. Ebola Screen: No symptoms or risks identified at this time. An acute neurological deficit is present. The charge nurse has been notified. The patient has been moved to a treatment area. The patients blood glucose was checked before arriving to the hospital and was found to be normal. Initial Sepsis Screen: Does the patient meet any 2 criteria? No. Patient's initial sepsis screen is negative. Does the patient have a suspected source of infection? No. Patient's initial sepsis screen is negative. Risk Assessment: Do you want to hurt yourself or someone else? Patient reports no desire to harm self or others. Onset of symptoms is unknown. 09:34 Method Of Arrival: EMS: [facility] hb 09:34 Acuity: JESI 2 hb Triage Assessment: 09:48 Neuro: Reports weakness in left arm and left leg slurred speech. hb 12/28 09:55 General: Appears in no apparent distress. Behavior is cooperative, agitated. Pain: hb Denies pain. Cardiovascular: Patient's skin is warm and dry. Respiratory: Respiratory effort is even, unlabored, Respiratory pattern is regular, symmetrical. Stroke Activation: Symptom onset > 6 hours Physician: ED Attending; Name: Dr. Oneal; Notified At: 09:32; Arrived At: 09:32 Physician: Mid-Level Provider; Name: ; Notified At: 09:32; Arrived At: Physician: [not used]; Name: ; Notified At: ; Arrived At: Physician: [not used]; Name: ; Notified At: ; Arrived At: Physician: [not used]; Name: ; Notified At: ; Arrived At: Historical: - Allergies: 12/27 09:42 insect venom; hb - Home Meds: 09:42 allopurinol 300 mg Oral tablet daily [Active]; amitriptyline 25 mg Oral tablet hb [Active]; aspirin 81 mg Oral tablet daily [Active]; atorvastatin 20 mg Oral tablet daily [Active]; bumetanide 2 mg Oral tablet daily [Active]; carvedilol 25 mg Oral tablet [Active]; digoxin 125 mcg (0.125 mg) Oral tablet [Active]; losartan 25 mg Oral tablet [Active]; metolazone 2.5 mg Oral tablet [Active]; sertraline 50 mg Oral tablet [Active]; spironolactone 50 mg Oral tablet [Active]; Xarelto 20 mg Oral tablet [Active]; - PMHx: 09:42 Asthma; Bronchitis; CHF; Gout; Atrial Fib; Hypertension; venous insufficiency; wounds; hb - Immunization history:: Adult Immunizations up to date. - Infectious Disease History:: Denies. - Family history:: not pertinent. - Social history:: Smoking status: Patient denies any tobacco usage or history of. - Hospitalizations: : No recent hospitalization is reported. Screenin:44 [facility] ED Fall Risk Assessment (Adult) History of falling in the last 3 months, hb including since admission No falls in past 3 months (0 pts) Confusion or Disorientation No (0 pts) Intoxicated or Sedated No (0 pts) Impaired Gait Yes (1 pt) Mobility Assist Device Used No (0 pt) Altered Elimination No (0 pt) Score/Fall Risk Level 3 or more points = High Risk Oriented to surroundings, Maintained a safe environment, Educated pt \T\ family on fall prevention, incl call for assistance when getting out of bed. Abuse screen: Denies threats or abuse. Denies injuries from another. Nutritional screening: No deficits noted. Tuberculosis screening: No symptoms or risk factors identified. Assessment: 08:32 VAN Scoring: Arm Drift: Minor drift Visual Disturbance: No visual disturbance noted. hb Aphasia: No aphasia noted. Neglect: No neglect noted. 08:44 Reassessment: BGL 133. hb 08:44 Reassessment: CODE STROKE CALLED, PT TO CT VIA STRETCHER WITH ALEXUS AMAYA. hb 09:20 [place] Swallow Protocol Exclusion Criteria: Exclusion Criteria Result: Proceed Brief Cognitive Screen What is your name? Normal, Where are you right now? Normal, What year is it? Normal. Oral Mechanism Examination Facial Symmetry: Normal, Motion: Normal, Lip Closure: Normal, Oral Mechanism Result: Normal. 3 oz Water Swallow Challenge: Pt able to drink all water without stopping, coughing, choking or throat clearing: Yes Result: PASS Notified: Dwight Oneal MD. 09:28 TNKase (Tenecteplase) Screening: Indications: Definite evidence of stroke, ischemic, hb embolic, or hypertensive: Yes. Treatment will start within 4.5 hours onset of symptoms: No. 09:29 Reassessment: Minor left arm drift with slurred speech noted during triage, after hb returning from CT, no drift appreciated, slurred speech continues. 10:30 Reassessment: Patient appears in no apparent distress at this time. Patient and/or hb family updated on plan of care and expected duration. Pain level reassessed. Patient is alert, oriented x 3, equal unlabored respirations, skin warm/dry/pink. 12:15 Reassessment: Patient appears in no apparent distress at this time. Patient and/or hb family updated on plan of care and expected duration. Pain level reassessed. Patient is alert, oriented x 3, equal unlabored respirations, skin warm/dry/pink. 12:15 Reassessment: NIH 1 - dysarthria , remains unchanged from previous assessment. Pt now hb ER HOLD, See [facility] for reassessments. Vital Signs: 09:34 BP 97 / 70; Pulse 49; Resp 17; Temp 97.9(TE); Pulse Ox 100% on R/A; Pain 0/10; hb 10:39 BP 100 / 73; Pulse 61; Resp 15; Pulse Ox 97% on R/A; hb 19:55 BP 133 / 97; Pulse 50; Resp 17 S; Temp 98.1(T); Pulse Ox 97% on R/A; ha1 09:34 Pain Scale: Adult hb NIH Stroke Scale Scores: 09:30 NIHSS Score: 1 hb ED Course: 08:57 Patient arrived in ED. rn 08:58 Dwight Oneal MD is Attending Physician. rn 09:15 Maintain EMS IV. Dressing intact. Good blood return noted. Site clean \T\ dry. Gauge \T\ hb site: 18g RAC. 09:15 Client placed on continuous cardiac and pulse oximetry monitoring. NIBP monitoring hb applied. ict support and test engineers on. Pulse ox on. NIBP on. 09:16 CT Head Angio In Process Unspecified. EDMS 09:16 CT Neck Angio In Process Unspecified. EDMS 09:16 CT Stroke Brain w/o Contrast In Process Unspecified. EDMS 09:21 EKG done, by ED staff, reviewed by Dwight Oneal MD. hb 09:37 Triage completed. hb 09:44 Patient has correct armband on for positive identification. Provided Education on: hb tests, result times. 09:47 Arm band placed on. hb 10:07 Stroke CXR 1 View In Process Unspecified. EDMS 10:25 Alexus Coppola, RN is Primary Nurse. hb 10:26 Bhavik Oneal MD is Hospitalizing Provider. rn 12:15 No provider procedures requiring assistance completed. Patient admitted, IV remains in hb place. Administered Medications: 10:16 CANCELLED (Duplicate Order): [id number] mg PO once rn 10:39 Drug: NS 0.9% IV 250 ml IV at 1 bolus once Route: IV; Rate: 1 bolus; Site: right hb antecubital; 11:30 Follow up: Response: No adverse reaction; IV Status: Completed infusion; IV Intake: hb 1000ml 11:54 Drug: Hydrocodone-Acetaminophen PO (7.5 mg-325 mg) 1 tabs PO once Route: PO; hb 12:40 Follow up: Response: No adverse reaction; Pain is decreased hb 11:54 Drug: Aspirin PO 325 mg PO once Route: PO; hb 12:25 Follow up: Response: No adverse reaction hb Medication: 09:44 VIS not applicable for this client. hb Point of Care Testing: Blood Glucose: 08:44 Blood Glucose: 133 mg/dL; hb Ranges: Intake: 11:30 IV: 1000ml; Total: 1000ml. hb Outcome: 10:26 Decision to Hospitalize by Provider. rn 12:15 Admitted to ER Hold. Please see [facility] for further documentation. hb 12:15 Condition: stable 12:15 Instructed on the need for admit, Demonstrated understanding of instructions, 21:54 Admitted to Med/surg accompanied by tech, via stretcher, with chart, Report called to david Avilez RN 21:54 Condition: stable 21:54 Instructed on the need for admit, Demonstrated understanding of instructions, 21:55 Patient left the ED. ha1 NIH Stroke Scale - NIH Stroke Score Date: 12/28/2023 Time: 09:30 Total Score = 1 10. Dysarthria (speech clarity - read or repeat words) - 1(Mild to Moderate) 11. Extinction and Inattention (visual/tactile/auditory/spatial/personal) - 0(No abnormality) 1a. Level of Consciousness (LOC) - 0(Alert) 1b. Level of Consciousness (LOC) (Month \T\ Age) - 0(Both) 1c. LOC Commands (Open \T\ Closes Eyes/Crayon Grader) - 0(Both) 2. Best Gaze (Lateral Gaze Paresis) - 0(Normal) 3. Visual Field Loss - 0(No visual loss) 4. Facial Palsy - 0(Normal) 5a. Left Arm: Motor (10-second hold) - 0(No drift) 5b. Right Arm: Motor (10-second hold) - 0(No drift) 6a. Left Leg: Motor (5-second hold - always test supine) - 0(No drift) 6b. Right Leg: Motor (5-second hold - always test supine) - 0(No drift) 7. Limb Ataxia (finger/nose \T\ heel/rodriguez - test with eyes open) - 0(Absent) 8. Sensory Loss (pinprick arms/legs/face) - 0(Normal) 9. Best Language: Aphasia (description/naming/reading) - 0(No aphasia) Initials: hb Signatures: Dispatcher [employer] EDMS Dwight Oneal MD MD rn Martinez, Eric em1 Alexus Coppola RN RN Kimberlyn Thomas RN RN 1 Corrections: (The following items were deleted from the chart) 13:32 09:23 EKG done, by ED staff, reviewed by Dwight Oneal MD em1 hb 12/28 09:56 12/27 09:48 Neuro: Reports hb hb
--- NOTE | 2023-12-28 17:59 | EDPHYS ---
Physician Documentation [facility] Name: Mellisa Patterson Age: 68 yrs Sex: Female : 1955 Arrival Date: 12/28/2023 Time: 08:51 Bed 2 Private MD: ED Physician Dwight Oneal HPI: 12/27 10:21 This 68 yrs old Black Female presents to ER via EMS with complaints of S/S of Possible rn Stroke. 10:21 The patient presents to the emergency department with weakness of the left upper rn extremity, left lower extremity, a speech or higher order brain function problem. Onset: The symptoms/episode began/occurred at an unknown time. Severity of symptoms: At their worst the symptoms were moderate in the emergency department the symptoms have improved. Current symptoms: Currently, the patient is not experiencing any symptoms. The patient has experienced similar episodes in the past. Patient and family report left-sided weakness and speech difficulty, noticed this morning. Symptoms present by 330 but last known normal was 10 PM last night. No recent injury or fall. Takes Xarelto for A-fib. Has been having issues with hypotension recently and her doctor has been slowly taking off blood pressure medication. Denies any chest pain or shortness of breath. Now symptoms have improved and feels nearly back to baseline.. Historical: - Allergies: 09:42 insect venom; hb - Home Meds: 09:42 allopurinol 300 mg Oral tablet daily [Active]; amitriptyline 25 mg Oral tablet hb [Active]; aspirin 81 mg Oral tablet daily [Active]; atorvastatin 20 mg Oral tablet daily [Active]; bumetanide 2 mg Oral tablet daily [Active]; carvedilol 25 mg Oral tablet [Active]; digoxin 125 mcg (0.125 mg) Oral tablet [Active]; losartan 25 mg Oral tablet [Active]; metolazone 2.5 mg Oral tablet [Active]; sertraline 50 mg Oral tablet [Active]; spironolactone 50 mg Oral tablet [Active]; Xarelto 20 mg Oral tablet [Active]; - PMHx: 09:42 Asthma; Bronchitis; CHF; Gout; Atrial Fib; Hypertension; venous insufficiency; wounds; hb - Immunization history:: Adult Immunizations up to date. - Infectious Disease History:: Denies. - Family history:: not pertinent. - Social history:: Smoking status: Patient denies any tobacco usage or history of. - Hospitalizations: : No recent hospitalization is reported. ROS: 10:21 Constitutional: Negative for fever, chills, and weight loss, Cardiovascular: Negative rn for chest pain, palpitations, and edema, Respiratory: Negative for shortness of breath, cough, wheezing, and pleuritic chest pain, Abdomen/GI: Negative for abdominal pain, nausea, vomiting, diarrhea, and constipation, MS/Extremity: Negative for injury and deformity, Skin: Negative for injury, rash, and discoloration, Neuro: Positive for left-sided weakness and slurred speech Exam: 10:21 Constitutional: This is a well developed, well nourished patient who is awake, alert, rn and in no acute distress. Cardiovascular: Bradycardic, regular. No pulse deficits. Respiratory: No increased work of breathing, no retractions or nasal flaring. Abdomen/GI: Soft, non-tender MS/ Extremity: Pulses equal, no cyanosis. Neurovascular intact. Neuro: Awake and alert, GCS 15, oriented to person, place, time, and situation. Slurred speech present. No drift of left upper extremity. 4 out of 5 strength left lower extremity. 12:29 ECG was reviewed by the Attending Physician. rn Vital Signs: 09:34 BP 97 / 70; Pulse 49; Resp 17; Temp 97.9(TE); Pulse Ox 100% on R/A; Pain 0/10; hb 10:39 BP 100 / 73; Pulse 61; Resp 15; Pulse Ox 97% on R/A; hb 19:55 BP 133 / 97; Pulse 50; Resp 17 S; Temp 98.1(T); Pulse Ox 97% on R/A; ha1 09:34 Pain Scale: Adult hb NIH Stroke Scale Scores: 09:30 NIHSS Score: 1 hb MDM: 08:58 Patient medically screened. rn 08:58 ED course: EMS states family and patient both reported last known normal 10 PM last fashion intern. Patient woke up with symptoms of slurred speech, confusion, headache and weakness on the left side. Patient states speech and weakness are slowly improving. Patient not TNK candidate due to onset outside of window.. 09:10 ED course: Dr. Powell reports neg ct head stroke protocol. . rn 10:17 Management of patient was discussed with the following: Auto Customize Painter: Discussed case with rn Dr. Broderick, reports okay to keep here, fluids and hydration, already on Xarelto for her A-fib.. 10:21 Data reviewed: vital signs, nurses notes, lab test result(s), radiologic studies, CT rn scan, and as a result, I will admit patient. Consideration of Admission/Observation Patient was admitted/placed on observation. Escalation of care including admission/observation considered. Counseling: I had a detailed discussion with the patient and/or guardian regarding the historical points, exam findings, and any diagnostic results supporting the discharge/admit diagnosis, lab results, radiology results, the need for further work-up and treatment in the hospital. Response to treatment: the patient's symptoms have markedly improved after treatment. 12/27 08:58 Order name: Basic Metabolic Panel; Complete Time: 10:05 rn 12/27 08:58 Order name: CBC with Diff; Complete Time: 10:05 12/27 08:58 Order name: High Sensitivity Troponin; Complete Time: 10:12/27 08:58 Order name: Protime (+inr); Complete Time: 10:12/27 08:58 Order name: Ptt, Activated; Complete Time: 10:12/27 10:10 Order name: CREATININE WHOLE BLOOD; Complete Time: 10:13 EDIL 12/27 21:20 Order name: Troponin High Sensitivity EDIL 12/27 08:58 Order name: CT Head Angio; Complete Time: 10:05 rn 12/27 08:58 Order name: CT Neck Angio; Complete Time: 12:28 rn 12/27 08:58 Order name: CT Stroke Brain w/o Contrast; Complete Time: 10:05 12/27 08:58 Order name: Stroke CXR 1 View; Complete Time: 12:28 rn 12/27 16:12 Order name: MRI; Complete Time: 16:24 EDIL 12/27 08:58 Order name: Accucheck; Complete Time: 09:48 rn 12/27 08:58 Order name: Cardiac monitoring; Complete Time: 09:48 rn 12/27 08:58 Order name: EKG - Nurse/Tech; Complete Time: 09:23 rn 12/27 08:58 Order name: IV Saline Lock; Complete Time: 09:48 rn 12/27 08:58 Order name: Labs collected and sent; Complete Time: 09:48 rn 12/27 08:58 Order name: NPO; Complete Time: 09:49 rn 12/27 08:58 Order name: O2 Per Protocol; Complete Time: 09:49 rn 12/27 08:58 Order name: O2 Sat Monitoring; Complete Time: 09:49 rn 12/27 08:58 Order name: Stroke Swallow Screen; Complete Time: 09:49 rn EC:29 Rate is 49 beats/min. Rhythm is irregular. QRS [place] is Normal. VT interval is normal. rn QT interval is prolonged at 511 msec. T waves are Normal. No ST changes noted. Clinical impression: Sinus bradycardia. Interpreted by me. Reviewed by me. Administered Medications: 10:16 CANCELLED (Duplicate Order): [id number] mg PO once rn 10:39 Drug: NS 0.9% IV 250 ml IV at 1 bolus once Route: IV; Rate: 1 bolus; Site: right hb antecubital; 11:30 Follow up: Response: No adverse reaction; IV Status: Completed infusion; IV Intake: hb 1000ml 11:54 Drug: Hydrocodone-Acetaminophen PO (7.5 mg-325 mg) 1 tabs PO once Route: PO; hb 12:40 Follow up: Response: No adverse reaction; Pain is decreased hb 11:54 Drug: Aspirin PO 325 mg PO once Route: PO; hb 12:25 Follow up: Response: No adverse reaction hb Point of Care Testing: Blood Glucose: 08:44 Blood Glucose: 133 mg/dL; hb Ranges: Critical Glucose Levels:Adult <50 mg/dl or >400 mg/dl <40 mg/dl or >180 mg/dl Disposition Summary: 12/28/23 10:26 Hospitalization Ordered Notes: Hospitalization Status: Inpatient Admission rn Provider: Bhavik Oneal rn Condition: Stable rn Problem: new rn Symptoms: have improved rn Bed/Room Type: Standard rn Location: Telemetry/MedSurg (Inpatient)(12/28/23 20:24) Room Assignment: 223(12/28/23 20:24) Diagnosis - Cerebral infarction, unspecified rn - Weakness rn - Slurred speech rn - Hypotension, unspecified rn Forms: - Medication Reconciliation Form rn - SBAR form rn - Leadership Thank You Letter rn NIH Stroke Scale - NIH Stroke Score Date: 12/28/2023 Time: 09:30 Total Score = 1 10. Dysarthria (speech clarity - read or repeat words) - 1(Mild to Moderate) 11. Extinction and Inattention (visual/tactile/auditory/spatial/personal) - 0(No abnormality) 1a. Level of Consciousness (LOC) - 0(Alert) 1b. Level of Consciousness (LOC) (Month \T\ Age) - 0(Both) 1c. LOC Commands (Open \T\ Closes Eyes/Clod Puller) - 0(Both) 2. Best Gaze (Lateral Gaze Paresis) - 0(Normal) 3. Visual Field Loss - 0(No visual loss) 4. Facial Palsy - 0(Normal) 5a. Left Arm: Motor (10-second hold) - 0(No drift) 5b. Right Arm: Motor (10-second hold) - 0(No drift) 6a. Left Leg: Motor (5-second hold - always test supine) - 0(No drift) 6b. Right Leg: Motor (5-second hold - always test supine) - 0(No drift) 7. Limb Ataxia (finger/nose \T\ heel/rodriguez - test with eyes open) - 0(Absent) 8. Sensory Loss (pinprick arms/legs/face) - 0(Normal) 9. Best Language: Aphasia (description/naming/reading) - 0(No aphasia) Initials: hb Signatures: Dispatcher [employer] EDLeeanne Taylor Kimberly RN Dwight Singleton MD MD rn Attema, Lee, MARINE PIPE WELDER-C MARINE PIPE WELDER-Cla1 Alexus Coppola RN RN hb Corrections: (The following items were deleted from the chart) 08:59 08:59 BASIC METABOLIC PANEL+C.LAB.BRZ ordered. EDMS EDMS 08:59 08:59 CBC+H.LAB.BRZ ordered. EDMS EDMS 08:59 08:59 Troponin High Sensitivity+C.LAB.BRZ ordered. EDMS EDMS 08:59 08:59 PROTIME (+INR)+COAG.LAB.BRZ ordered. EDMS EDMS 08:59 08:59 PTT, ACTIVATED+COAG.LAB.BRZ ordered. EDMS EDMS 08:59 08:59 Head Angio+CT.RAD.BRZ ordered. EDMS EDMS 08:59 08:59 Neck Angio+CT.RAD.BRZ ordered. EDMS EDMS 08:59 08:59 CT-STROKE BRAIN W/O CONTRAST+CT.RAD.BRZ ordered. EDMS EDMS 08:59 08:59 Chest Single View+RAD.RAD.BRZ ordered. EDMS EDMS 10:16 10:07 Aspirin PO 325 mg PO once ordered. mildred rn 12:11 10:26 Telemetry/MedSurg (Inpatient) rn bd 12:11 10:26 rn bd 20:24 12:11 BR ER HOLD bd kl 20:24 12:11 ERHOLD- bd kl
[2023-12-28] MEDS ORDERED: RIVAROXABAN 20 MG TABLET PO ONE (20:56)
[2023-12-28] MEDS ORDERED: ATORVASTATIN 40 MG TAB ONE (20:56)
[2023-12-28] MEDS ORDERED: METOPROLOL XL 50 MG TAB PO ONE (20:56)
[2023-12-28] MEDS: TOPIRAMATE 25 MG TAB PO SCH (21:00)
[2023-12-28] MEDS: NA CHLORIDE 0.9% 1,000 ML IV SCH (21:00)
[2023-12-28] MEDS: ATORVASTATIN 40 MG TAB PO SCH (21:00)
[2023-12-28] MEDS: RIVAROXABAN 20 MG TABLET PO SCH (21:05)
[2023-12-28] MEDS ORDERED: NA CHLORIDE 0.9% 1,000 ML ONE (21:07)
[2023-12-28] MEDS: HYDROCODONE/APAP 5/325 MG TAB PO PRN (23:29)
[2023-12-29 07:48] LABS: Absolute Eosinophils 0.1 K/uL (0-0.5); Absolute Lymphocytes (CBC) 1.1 K/uL (0.7-4.9); Absolute Monocytes 0.6 K/uL (0.1-1.3); Absolute Neutrophil 1.8 K/uL (1.8-8.0); Basophils % 0.4 % (0-1.3); Eosinophils % 3.5 % (0-4.4); Hematocrit 35.3 % (36.0-45.0); Hemoglobin 11.1 g/dL (12.0-15.0); MCH 30.2 pg (27.0-35.0); MCHC 31.3 g/dL (32.0-36.0); MCV 96.5 fL (80-100); MPV 10.1 fL (7.6-11.3); Monocytes % 15.5 % (3.3-12.3); Neutrophils % 49.6 % (41.7-73.7); Nucleated Red Blood Cells % 0.1 % (0-0); Platelets 190 thou/uL (152-406); RBC Red Blood Cell Count 3.66 M/uL (3.86-4.86); Red Cell Distribution Width 15.8 % (12.1-15.2)
[2023-12-29 08:00] LABS: ALT/SGPT 20 U/L (13-56); Albumin 3.1 g/dL (3.4-5.0); Albumin/Globulin Ratio 0.8 (1.1-1.8); Alkaline Phosphatase 78 U/L (45-117); Anion Gap 5.9 mEq/L (5.0-15.0); BUN Blood Urea Nitrogen 30 mg/dL (7-18); Bicarbonate 30 mEq/L (21-32); Bilirubin Total 0.2 mg/dL (0.2-1.0); Globulin 4.1 g/dL (2.3-3.5); Glomerular Filtration Rate 36 ml/min (=/>90); Glucose Level 116 mg/dL (74-106); HDL Cholesterol 40 mg/dL (40-60); LDL Cholesterol, Calculated 94 mg/dL (<130); LDL Cholesterol,Calc NonReport 94; Potassium 3.9 mEq/L (3.5-5.1); Protein, Total 7.2 g/dL (6.4-8.2); Sodium Level 140 mEq/L (136-145); T4,Total 8.1 ug/dL (4.8-13.9)
[2023-12-29 08:01] LABS: AST/SGOT < 10 U/L (15-37)
[2023-12-29 08:04] LABS: Troponin High Sensitivity 107.9 pg/mL (<58.9)
[2023-12-29] MEDS: ASPIRIN EC 81 MG TAB PO SCH (08:39)
[2023-12-29] MEDS: GABAPENTIN 300 MG CAP PO SCH (08:39)
[2023-12-29] MEDS: SERTRALINE HCL 100 MG TAB PO SCH (08:39)
[2023-12-29] MEDS: AMIODARONE HCL 200 MG TAB PO SCH (08:39)
[2023-12-29] MEDS ORDERED: BUMETANIDE 1 MG TABLET PO SCH (09:00)
[2023-12-29] MEDS ORDERED: SPIRONOLACTONE 25 MG TABLET PO SCH (09:00)
--- NOTE | 2023-12-29 13:29 | P.PN ---
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 Atrial flutter on chronic anticoagulation Hypertension EDELMIRA Chronic diastolic congestive heart failure Elevated troponin Gout COPD/BEATRICE Soft tissue fullness supraglottic larynx with asymmetric thickening of the right aryepiglottic fold Plan: Left-sided weakness-suspected TIA Right proximal M1 segment focal stenosis-moderate 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 Was not a candidate for TNK given Xarelto use, onset of symptoms Symptoms improving, NIH score is 0 moving left upper extremity well Continue Xarelto, aspirin ED discussed case with neurology, no intervention recommended at this time MRI negative for CVA 12/27 Patient with questionable compliance for medications, restart gradually to avoid hypotension Atrial flutter on chronic anticoagulation Continue Xarelto monitor on telemetry Resume amiodarone Hypertension EDELMIRA Blood pressure currently soft Hold oral antihypertensive agents, resume as appropriate Continue gentle IV fluids overnight Chronic diastolic congestive heart failure Elevated troponin Cardiology consulted given persistently elevated troponin Continue Xarelto Does not appear grossly overloaded at this time Will obtain echocardiogram Hold diuretics today, likely will resume tomorrow Gout COPD/BEATRICE Continue home medications, CPAP at night as needed Soft tissue fullness supraglottic larynx with asymmetric thickening of the right aryepiglottic fold Discussed findings with patient as well as recommendation for outpatient ENT evaluation DVT PPX: Continue Xarelto 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
[2023-12-29] MEDS: ACETAMIN/CAFFEINE/BUTALB TAB PO ONE (15:26)
--- NOTE | 2023-12-29 18:17 | P.CNS ---
Date of Consult: 12/29/23 Chief Complaint: Left-sided weakness History of Present Illness: Patient with PMH of HTN, Heart failure, diastolic, atrial fibrillation presented with left side weakness and chest pressure, patient is not a great historian but report one episode of chest pressure left sided yesterday, denies any other cardiac symptoms, patient had a bag of medications, she called her travel bag in case she need any of the medications. she follow up with Dr Hardin in [facility] cardiology. Allergies insect venom Adverse Reaction (Verified 12/28/23 22:22) Anaphylaxis Home Medications: Amiodarone HCl [Cordarone*] 200 mg PO DAILY 12/28/23 Atorvastatin Calcium [Lipitor*] 20 mg PO SEECOM 12/28/23 Bumetanide 1 mg PO DAILY 12/28/23 Carvedilol [Coreg] 25 mg PO BID 12/28/23 Furosemide 80 mg PO DAILY 12/28/23 Gabapentin 600 mg PO TID 12/28/23 Hydralazine HCl 50 mg PO TID 12/28/23 NIFEdipine [Nifedipine ER] 60 mg PO DAILY 12/28/23 Sertraline [Zoloft*] 100 mg PO DAILY 12/28/23 Spironolactone 25 mg PO DAILY 12/28/23 Topiramate 2 tab PO BEDTIME 12/28/23 cloNIDine HCL [Clonidine HCl] 0.1 mg PO SEECOM 12/28/23 - Past Medical/Surgical History Diabetic: No -: Obstructive sleep apnea -: HTN -: CHFdiastolic -: Gout -: Venous insufficiency -: Tobacco abuse -: Morbid obesity -: Atrial flutter -: Anterior communicating artery aneurysm4 mm -: Focal moderate M1 stenosis -: Skin graft -: x2 -: vein removal on R leg (2014) Psychosocial/ Personal History: Lives at home with family - Family History Mother Medical History: Diabetes Notes: Alzheimer's Father Medical History: Heart disease, Stroke Brother Medical History: Heart disease, Diabetes - Social History Smoking Status: Current every day smoker Alcohol use: No CD- Drugs: No Caffeine use: No Place of Residence: Home Review of Systems 10-point ROS is otherwise unremarkable Physical Examination Temp Pulse Resp BP Pulse Ox 97.7 F 44 L 16 134/87 91 12/29/23 16:00 12/29/23 16:00 12/29/23 16:00 12/29/23 16:00 12/29/23 16:00 General: Alert, In no apparent distress HEENT: Atraumatic, PERRLA, Mucous membr. moist/pink, EOMI, Sclerae nonicteric Neck: Supple, 2+ carotid pulse no bruit, No LAD, Without JVD or thyroid abnormality Respiratory: Clear to auscultation bilaterally, Normal air movement Cardiovascular: Regular rate/rhythm, Normal S1 S2 Gastrointestinal: Normal bowel sounds, No tenderness Musculoskeletal: No tenderness Integumentary: No rashes Neurological: Normal gait, Normal speech, Normal tone, Normal affect Lymphatics: No axilla or inguinal lymphadenopathy - Problems (1) NSTEMI (non-ST elevated myocardial infarction) Current Visit: No Status: Acute Plan: Troponin mild elevated with no significant delta, most likely type 2 [place] secondary to EDEMLIRA, Patient had a stress test recently that was negative for ischemia, No further cardiac work up is needed at this point. (2) Atrial fibrillation Current Visit: No Status: Chronic Plan: Patient is in sinus rhythm Continue amiodarone 200 mg po daily Continue Xarelto 20 mg daily Qualifiers: Atrial fibrillation type: longstanding persistent Qualified Code(s): I48.11 - Longstanding persistent atrial fibrillation (3) CHF (congestive heart failure) Current Visit: No Status: Chronic Plan: Patient looks euvolemic on exam, per her medications bag, she is on Bumex and Lasix, presenting with EDELMIRA, keep both on hold and monitor kidney function, will start Lasix back once kidney function is better. patient also have multiple medications in the bag but her BP is normal off medications, will monitor and start medications slowly. Qualifiers: Heart failure type: unspecified Heart failure chronicity: acute on chronic Qualified Code(s): I50.9 - Heart failure, unspecified
[2023-12-29] MEDS: ATORVASTATIN 20 MG TAB PO SCH (21:34)
[2023-12-29] MEDS: TOPIRAMATE 25 MG TAB PO SCH (21:34)
[2023-12-30 03:19] LABS: Absolute Eosinophils 0.1 K/uL (0-0.5); Absolute Lymphocytes (CBC) 0.9 K/uL (0.7-4.9); Absolute Monocytes 0.6 K/uL (0.1-1.3); Absolute Neutrophil 2.2 K/uL (1.8-8.0); Basophils % 0.4 % (0-1.3); Hematocrit 35.6 % (36.0-45.0); Hemoglobin 11.4 g/dL (12.0-15.0); Lymphocytes % 23.5 % (15.3-44.8); MCH 30.7 pg (27.0-35.0); MCHC 32.1 g/dL (32.0-36.0); MCV 95.6 fL (80-100); MPV 10.5 fL (7.6-11.3); Monocytes % 15.3 % (3.3-12.3); Neutrophils % 57.8 % (41.7-73.7); Nucleated Red Blood Cells % 0.3 % (0-0); Platelets 167 thou/uL (152-406); RBC Red Blood Cell Count 3.73 M/uL (3.86-4.86); Red Cell Distribution Width 15.2 % (12.1-15.2)
[2023-12-30 03:34] LABS: ALT/SGPT 19 U/L (13-56); Albumin 3.1 g/dL (3.4-5.0); Albumin/Globulin Ratio 0.7 (1.1-1.8); Alkaline Phosphatase 78 U/L (45-117); Anion Gap 4.3 mEq/L (5.0-15.0); BUN Blood Urea Nitrogen 31 mg/dL (7-18); Bicarbonate 31 mEq/L (21-32); Bilirubin Total 0.3 mg/dL (0.2-1.0); Globulin 4.2 g/dL (2.3-3.5); Glomerular Filtration Rate 45 ml/min (=/>90); Glucose Level 99 mg/dL (74-106); Potassium 4.3 mEq/L (3.5-5.1); Protein, Total 7.3 g/dL (6.4-8.2); Sodium Level 139 mEq/L (136-145)
[2023-12-30 03:37] LABS: AST/SGOT < 10 U/L (15-37)
--- NOTE | 2023-12-30 11:16 | P.PN ---
Subjective Date of Service: 12/30/23 Chief Complaint: Left-sided weakness Subjective: No new changes, No C/O voiced, Tolerating diet, Ambulating, Improving Review of Systems 10-point ROS is otherwise unremarkable Physical Examination - Vital Signs Temperature: 96.5 F Blood Pressure: 136/66 Pulse: 43 Respirations: 22 Pulse Ox (%): 99 - Physical Exam General: Alert, In no apparent distress HEENT: Atraumatic, PERRLA, EOMI Neck: Supple, JVD not distended Respiratory: Clear to auscultation bilaterally, Normal air movement Cardiovascular: Regular rate/rhythm, Normal S1 S2 Gastrointestinal: Normal bowel sounds, No tenderness Musculoskeletal: No tenderness Integumentary: No rashes Neurological: Normal speech, Normal tone, Normal affect Lymphatics: No axilla or inguinal lymphadenopathy - Studies Medications List Reviewed: Yes Assessment And Plan - Current Problems (Diagnosis) (1) NSTEMI (non-ST elevated myocardial infarction) Current Visit: No Status: Acute Plan: Troponin mild elevated with no significant delta, most likely type 2 [place] secondary to EDELMIRA, Patient had a stress test recently that was negative for ischemia, No further cardiac work up is needed at this point. (2) Atrial fibrillation Current Visit: No Status: Chronic Plan: Patient is in sinus rhythm Continue amiodarone 200 mg po daily Continue Xarelto 20 mg daily Qualifiers: Atrial fibrillation type: longstanding persistent Qualified Code(s): I48.11 - Longstanding persistent atrial fibrillation (3) CHF (congestive heart failure) Current Visit: No Status: Chronic Plan: Patient looks euvolemic on exam, per her medications bag, she is on Bumex and Lasix, presenting with EDELMIRA, keep both on hold and monitor kidney function. patient also have multiple medications in the bag but her BP is normal off medications, will monitor and start medications slowly. Patient want to be on Bumex 1 mg daily as it helps better than Lasix. Qualifiers: Heart failure type: unspecified Heart failure chronicity: acute on chronic Qualified Code(s): I50.9 - Heart failure, unspecified
[2023-12-30 13:03] VITALS: O2SAT 98
[2023-12-30 13:20] VITALS: TEMP 96.8
--- NOTE | 2023-12-30 16:02 | P.DS ---
Admission Date: 12/30/23 Discharge Date: 12/30/23 Disposition: ROUTINE DISCHARGE Discharge Condition: GOOD Reason for Admission: Left-sided weakness Consultations: Cardiology- Dr. Burns Brief History of Present Illness: 68-year-old female with history of chronic diastolic congestive heart failure, atrial flutter on chronic anticoagulation with Xarelto, hypertension, gout, COPD/BEATRICE presented to the emergency department with chief complaint of left- sided weakness and slurred speech. Last known well was 2200 on 12/26, around 3 AM it was noted she was having difficulty with ambulation as well as left upper extremity weakness, difficulty with speech. Upon arrival to ED patient was out of the window for TNK, she also takes Xarelto. CT head without contrast was negative for acute findings. CTA head shows focal, up to moderate stenosis of the right proximal M1 segment without evidence of large vessel occlusion or other flow-limiting stenosis. Incidentally noted 4 mm anterior connecting artery aneurysm. CTA neck negative for LVO, did demonstrate soft tissue fullness in the region of the supraglottic larynx with asymmetric thickening of the right aryepiglottic fold. Her labs are significant for mildly elevated high-sensitivity troponin initially 114.3. Creatinine 1.43. Patient is left-sided weakness improved during her ED stay and is near baseline at this time, ED provider wishes to admit under observation for left-sided weakness, suspected TIA. She reports she has been compliant with her medications. Hospital Course: Assessment: Left-sided weakness-suspected TIA Right proximal M1 segment focal stenosis-moderate 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 Atrial flutter on chronic anticoagulation Hypertension EDELMIRA Chronic diastolic congestive heart failure Elevated troponin Gout COPD/BEATRICE Soft tissue fullness supraglottic larynx with asymmetric thickening of the right aryepiglottic fold Patient was admitted to the hospital for left upper extremity weakness, change in her speech. Her symptoms improved on day of admission and her MRI did not show signs of an acute CVA. This episode is concerning for a TIA or mini stroke. Patient's blood pressure was noted to be relatively low on arrival, she was given gentle IV fluids and her blood pressure has improved although she has not been restarted back on her oral antihypertensive agents at this time. Her medication compliance/which ones she is taking at home is somewhat questionable although during her hospital stay we have been giving her her home dose of amiodarone, atorvastatin, Xarelto, Topamax, sertraline. She has remained in atrial flutter which is rate controlled, blood pressure has been well-controlled, if not on the low side for 24 hours. Discussed medication use at length including the importance of compliance with her blood thinners, statin and good blood pressure control as well as compliance with her CPAP at home. Refills on the prescriptions for the following medications were sent to her pharmacy [facility] Amiodarone 200 mg by mouth daily Atorvastatin 20 mg at bedtime Xarelto 20 mg daily Topamax 50 mg by mouth twice daily At time of discharge left upper extremity is fully functioning, NIH score is 0 There were some additional incidental findings on her imaging including the following Right proximal M1 segment focal stenosis up to moderate in severity-this is narrowing in an artery in your brain, it is not severe or currently occluded and you should continue your Xarelto, aspirin, statin to help reduce the risk of serious stroke 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-this has been previously identified, no surgical intervention recommended at this time-recomm end outpatient neurology follow-up Soft tissue fullness supraglottic larynx with asymmetric thickening of the right area epiglottic fold-this was not well-evaluated given some patient motion artifact and beam hardening artifact-patient has been tolerating food, liquids, pills without difficulty, recommend outpatient follow-up with ENT-information for local ENT doctorDr. Cartagena provided Patient had bottles of additional blood pressure medications at bedside again, is unclear which 1 she has been taking at home for sure. We discussed that her blood pressure is well-controlled at this time and her heart rate is running in the low side, I recommend holding these oral antihypertensive agents at this time and monitoring blood pressure once daily, starting the back slowly if necessary. We discussed that it is very possible that she will require these medications again in the near future even but at this time her blood pressure is well-controlled. She also had a bottle of both furosemide and Bumex at the bedside, discussed that these medication should not be taken together and that going forward she should continue taking the Bumex as she feels this works better for her. Please follow-up with your primary care doctorDr. Herrera in [address] Burnscareduardo or your primary card scraper in 1 to 2 weeks ENT- Dr. Cartagena to further evaluate soft tissue fullness noted on CT scan Monitor blood pressure daily and resume your blood pressure medications 1 at a time if it is persistently elevated greater than 140 systolic starting with your benazapril/hctz and then your sprionolactone, check you heart rate before you resume you carvedilol and if it is less than 55 do not take it. Vital Signs/Physical Exam: Temp Pulse Resp BP Pulse Ox 96.8 F 57 20 144/65 H 96 12/30/23 12:00 12/30/23 12:00 12/30/23 12:00 12/30/23 12:00 12/30/23 12:00 General: Alert, In no apparent distress, Oriented x3 HEENT: Atraumatic, PERRLA Neck: Supple, JVD not distended Respiratory: Clear to auscultation bilaterally, Normal air movement Cardiovascular: Regular rate/rhythm, Normal S1 S2 Gastrointestinal: Normal bowel sounds, No tenderness Musculoskeletal: No tenderness Integumentary: No rashes Neurological: Normal speech, Normal tone, Normal affect Laboratory Data at Discharge: WBC 3.80 thou/uL (4.3-10.9) L 12/30/23 02:38 Hgb 11.4 g/dL (12.0-15.0) L 12/30/23 02:38 Hct 35.6 % (36.0-45.0) L 12/30/23 02:38 Plt Count 167 thou/uL (152-406) 12/30/23 02:38 PT 12.7 SECONDS (9.5-12.5) H 12/28/23 09:24 INR 1.16 12/28/23 09:24 APTT 30.4 SECONDS (24.3-36.9) 12/28/23 09:24 Sodium 139 mEq/L (136-145) 12/30/23 02:38 Potassium 4.3 mEq/L (3.5-5.1) 12/30/23 02:38 BUN 31 mg/dL (7-18) H 12/30/23 02:38 Creatinine 1.31 mg/dL (0.55-1.02) H 12/30/23 02:38 Glucose 99 mg/dL (74-106) 12/30/23 02:38 Total Bilirubin 0.3 mg/dL (0.2-1.0) 12/30/23 02:38 AST < 10 U/L (15-37) L 12/30/23 02:38 ALT 19 U/L (13-56) 12/30/23 02:38 Alkaline Phosphatase 78 U/L (45-117) 12/30/23 02:38 Triglycerides 81 mg/dL (<150) 12/29/23 07:17 Cholesterol 150 mg/dL (<200) 12/29/23 07:17 HDL Cholesterol 40 mg/dL (40-60) 12/29/23 07:17 Cholesterol/HDL Ratio 3.75 12/29/23 07:17 Home Medications: Bumetanide 1 mg PO DAILY 12/28/23 Gabapentin 600 mg PO TID 12/28/23 Sertraline [Zoloft*] 100 mg PO DAILY 12/28/23 Topiramate 2 tab PO BEDTIME 12/28/23 Amiodarone HCl [Cordarone*] 200 mg PO DAILY #30 tab 12/30/23 Atorvastatin Calcium [Lipitor*] 20 mg PO SEECOM #30 tab 12/30/23 Rivaroxaban [Xarelto] 20 mg PO DAILY #30 tab 12/30/23 Topiramate 50 mg PO BID #60 tab 12/30/23 hydrOXYzine HCL [Atarax] 50 mg PO TID PRN #30 tab 12/30/23 New Medications: hydrOXYzine HCL [Atarax] 50 mg PO TID PRN #30 tab PRN Reason: Itching Amiodarone HCl [Cordarone*] 200 mg PO DAILY #30 tab Atorvastatin Calcium [Lipitor*] 20 mg PO SEECOM #30 tab Topiramate 50 mg PO BID #60 tab Rivaroxaban [Xarelto] 20 mg PO DAILY #30 tab Physician Discharge Instructions: Patient was admitted to the hospital for left upper extremity weakness, change in her speech. Her symptoms improved on day of admission and her MRI did not show signs of an acute CVA. This episode is concerning for a TIA or mini stroke. Patient's blood pressure was noted to be relatively low on arrival, she was given gentle IV fluids and her blood pressure has improved although she has not been restarted back on her oral antihypertensive agents at this time. Her medication compliance/which ones she is taking at home is somewhat questionable although during her hospital stay we have been giving her her home dose of amiodarone, atorvastatin, Xarelto, Topamax, sertraline. She has remained in atrial flutter which is rate controlled, blood pressure has been well-controlled, if not on the low side for 24 hours. Discussed medication use at length including the importance of compliance with her blood thinners, statin and good blood pressure control as well as compliance with her CPAP at home. Refills on the prescriptions for the following medications were sent to her pharmacy [facility] Amiodarone 200 mg by mouth daily Atorvastatin 20 mg at bedtime Xarelto 20 mg daily Topamax 50 mg by mouth twice daily At time of discharge left upper extremity is fully functioning, NIH score is 0 There were some additional incidental findings on her imaging including the following Right proximal M1 segment focal stenosis up to moderate in severity-this is narrowing in an artery in your brain, it is not severe or currently occluded and you should continue your Xarelto, aspirin, statin to help reduce the risk of serious stroke 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-this has been previously identified, no surgical intervention recommended at this time- recommend outpatient neurology follow-up Soft tissue fullness supraglottic larynx with asymmetric thickening of the right area epiglottic fold-this was not well-evaluated given some patient motion artifact and beam hardening artifact-patient has been tolerating food, liquids, pills without difficulty, recommend outpatient follow-up with ENT-information for local ENT doctorDr. Cartagena provided Patient had bottles of additional blood pressure medications at bedside again, is unclear which 1 she has been taking at home for sure. We discussed that her blood pressure is well-controlled at this time and her heart rate is running in the low side, I recommend holding these oral antihypertensive agents at this t baron and monitoring blood pressure once daily, starting the back slowly if necessary. We discussed that it is very possible that she will require these medications again in the near future even but at this time her blood pressure is well-controlled. She also had a bottle of both furosemide and Bumex at the bedside, discussed that these medication should not be taken together and that going forward she should continue taking the Bumex as she feels this works better for her. Please follow-up with your primary care doctorDr. Herrera in [address] Burnscareduardo or your primary card scraper in 1 to 2 weeks ENT- Dr. Cartagena to further evaluate soft tissue fullness noted on CT scan Monitor blood pressure daily and resume your blood pressure medications 1 at a time if it is persistently elevated greater than 140 systolic starting with your benazapril/hctz and then your sprionolactone, check you heart rate before you resume you carvedilol and if it is less than 55 do not take it. Med list inconsistencies noted recommend close follow-up with PCP, bring all of your medications and medication list to this appointment so that these can be accurately accounted for. Multiple attempts were made at medication reconciliation and hospital but patient had 2 separate lists which did not all manage med reconciliation from pharmacy or bottles of pills in room. Diet: AHA Activity: Fall precautions Followup: Toi Herrera DO [Primary Care Provider] - 1-2 Weeks Billy Burns MD [ACTIVE - CAN ADMIT] - 1-2 Weeks Angela Cartagena DO [ACTIVE - CAN ADMIT] - 1-2 Weeks Time spent managing pt's care (in minutes): 35
[2023-12-30 17:24] VITALS: BP 132/88
== END 2023-12-30 18:39 | disposition home or self-care (01) | DRG 69 ==
LOC: ER 08:51 → ERHOLD 11:46 → 2ND 20:51 → OBSVTOIN 12-30 11:24
PROVIDERS: ADMIT Hospitalist; ATTEND Hospitalist
PROC: 5A09457 Assistance with Respiratory Ventilation, 24-96 Consecutive Hours, Continuous Positive Airway Pressure (ICD-10-PCS; principal; 2023-12-30)
DX: G45.9 Transient cerebral ischemic attack, unspecified (principal); I21.A1 Myocardial infarction type 2; I50.33 Acute on chronic diastolic (congestive) heart failure; G81.94 Hemiplegia, unspecified affecting left nondominant side; I48.92 Unspecified atrial flutter; Z68.41 Body mass index [BMI] 40.0-44.9, adult; N17.9 Acute kidney failure, unspecified; I48.11 Longstanding persistent atrial fibrillation; E66.01 Morbid (severe) obesity due to excess calories; I11.0 Hypertensive heart disease with heart failure; M10.9 Gout, unspecified; I95.9 Hypotension, unspecified; I72.9 Aneurysm of unspecified site; J04.30 Supraglottitis, unspecified, without obstruction; G47.33 Obstructive sleep apnea (adult) (pediatric); J44.9 Chronic obstructive pulmonary disease, unspecified; F17.200 Nicotine dependence, unspecified, uncomplicated; R47.81 Slurred speech; R29.701 NIHSS score 1; Z79.01 Long term (current) use of anticoagulants; Z79.82 Long term (current) use of aspirin; Z79.02 Long term (current) use of antithrombotics/antiplatelets; Z79.899 Other long term (current) drug therapy
CPT/HCPCS: 36415; 70450; 70496; 70498; 70551; 71045; 80048; 80053; 80061; 82565; 82947; 84436; 84443; 84484; 85025; 85610; 85730; 92523; 93005; 94660; 96365; 97116; 97161; 97530; 99285; G0378; J7030; J7050; Q9967

== ENCOUNTER 2024-09-13 17:21 | Inpatient (IN) | payer OTHER, BC ==
[2024-09-13] MEDS ORDERED: FUROSEMIDE 40 MG/4 ML VIAL ONE (17:54)
[2024-09-13 18:18] LABS: Absolute Eosinophils 0.1 K/uL (0-0.5); Absolute Lymphocytes (CBC) 1.1 K/uL (0.7-4.9); Absolute Monocytes 0.7 K/uL (0.1-1.3); Absolute Neutrophil 3.2 K/uL (1.8-8.0); Basophils % 0.3 % (0-1.3); Eosinophils % 1.2 % (0-4.4); Hematocrit 34.6 % (36.0-45.0); Hemoglobin 11.3 g/dL (12.0-15.0); Lymphocytes % 20.9 % (15.3-44.8); MCH 30.6 pg (27.0-35.0); MCHC 32.5 g/dL (32.0-36.0); MCV 94.2 fL (80-100); MPV 10.3 fL (7.6-11.3); Monocytes % 14.6 % (3.3-12.3); Platelets 160 thou/uL (152-406); RBC Red Blood Cell Count 3.67 M/uL (3.86-4.86); Red Cell Distribution Width 15.2 % (12.1-15.2)
[2024-09-13 18:41] LABS: Albumin 2.9 g/dL (3.4-5.0); Albumin/Globulin Ratio 0.7 (1.1-1.8); Anion Gap 6.5 mEq/L (5.0-15.0); Bilirubin Direct 0.2 mg/dL (0-0.2); Bilirubin Indirect, Calculated 0.3 mg/dL (0.2-0.8); Bilirubin Total 0.5 mg/dL (0.2-1.0); Globulin 4.3 g/dL (2.3-3.5); Potassium 3.5 mEq/L (3.5-5.1); Protein, Total 7.2 g/dL (6.4-8.2)
[2024-09-13 18:44] LABS: Troponin High Sensitivity 221.8 pg/mL (<58.9)
--- NOTE | 2024-09-13 18:45 | RAD REPORT ---
EXAM: Chest Single View HISTORY: 69 years Female DYSPNEA COMPARISON: 12/28/2023 FINDINGS: LUNGS/PLEURA: Pulmonary vascular engorgement with bilateral hazy opacities. CARDIAC/MEDIASTINUM: Stable enlargement. UPPER ABDOMEN: No significant abnormality. BONES: No acute abnormality. LINES/TUBES/OTHER: N/A IMPRESSION: Findings consistent with congestive heart failure.
--- NOTE | 2024-09-13 20:32 | EDPHYS ---
Physician Documentation [facility] Name: Mellisa Patterson Age: 69 yrs Sex: Female : 1955 Arrival Date: 09/13/2024 Time: 17:21 Bed 17 Private MD: ED Physician Jitendra Bennett HPI: 09/13 18:27 This 69 yrs old Black Female presents to ER via EMS with complaints of Shortness Of rt Breath. 18:27 Patient with history of A-fib, congestive heart failure presents to the ED with rt progressively worsening dyspnea for the past 3 days. Reports dyspnea on exertion as well as orthopnea. States that her diuretics are not working as well as they used to. Denies chest pain, denies any acute complaints, symptoms are moderate in severity, no other aggravating or alleviating factors.. Historical: - Allergies: 17:31 insect venom; ld1 - PMHx: 17:31 Asthma; Atrial Fib; wounds; venous insufficiency; Hypertension; CHF; Bronchitis; Gout; ld1 - Immunization history:: Adult Immunizations up to date. - Infectious Disease History:: Denies. - Social history:: Smoking status: Patient denies any tobacco usage or history of. - Family history:: not pertinent. ROS: 18:27 Constitutional: Negative for fever, chills, and weight loss, Abdomen/GI: Negative for rt abdominal pain, nausea, vomiting, diarrhea, and constipation, MS/Extremity: Negative for injury and deformity, Skin: Negative for injury, rash, and discoloration, Neuro: Negative for headache, weakness, numbness, tingling, and seizure, 18:27 Cardiovascular: Positive for edema, Negative for chest pain, 18:27 Respiratory: Positive for cough, shortness of breath, Exam: 18:27 Constitutional: This is a well developed, well nourished patient who is awake, alert, rt and in no acute distress. Chest/axilla: Normal chest wall appearance and motion. Nontender with no deformity. No lesions are appreciated. Cardiovascular: Regular rate and rhythm with a normal S1 and S2. No gallops, murmurs, or rubs. Normal PMI, no JVD. No pulse deficits. Skin: Warm, dry with normal turgor. Normal color with no rashes, no lesions, and no evidence of cellulitis. Neuro: Awake and alert, GCS 15, oriented to person, place, time, and situation. Cranial nerves II-XII grossly intact. Motor strength 5/5 in all extremities. Sensory grossly intact. Cerebellar exam normal. Normal gait. 18:27 ECG was reviewed by the Attending Physician. 18:27 Respiratory: Bibasilar crackles, no respiratory distress, 18:27 Musculoskeletal/extremity: 2+ bilateral lower extremity edema, chronic appearing wounds to the left ankle.. Vital Signs: 17:39 BP 157 / 116; Pulse 68; Resp 18; Pulse Ox 93% on R/A; ld1 18:54 BP 189 / 123; Pulse 83; Resp 18; Pulse Ox 98% on R/A; ld1 20:30 BP 183 / 116; Pulse 74; Resp 16; Temp 98.2; Pulse Ox 100% on 2 lpm NC; ay 23:00 BP 197 / 142; Pulse 82; Resp 19; Pulse Ox 98% on 2 lpm NC; ay MDM: 17:42 Medical Screening Exam initiated rt 20:31 Differential diagnosis: CHF, volume overload, ACS. Data reviewed: vital signs, nurses rt notes, lab test result(s), EKG, radiologic studies. Consideration of Admission/Observation Patient was admitted/placed on observation. Management of patient was discussed with the following: Hospitalist: Agrees to admit. Independent interpretation of the following test(s) in the Emergency Department X-Ray: My interpretation is Pulmonary edema syndrome interpretation of x-ray images. Test considered but Not performed: CT: Low suspicion for PE, CT angiogram not indicated. Care significantly affected by the following chronic conditions: Congestive Heart Failure. Counseling: I had a detailed discussion with the patient and/or guardian regarding the historical points, exam findings, and any diagnostic results supporting the discharge/admit diagnosis, lab results, radiology results, the need for further work-up and treatment in the hospital. Response to treatment: the patient's symptoms have mildly improved after treatment. 09/13 17:53 Order name: Basic Metabolic Panel; Complete Time: 18:51 rt 09/13 17:53 Order name: CBC with Diff; Complete Time: 18:51 rt 09/13 17:53 Order name: LFT's; Complete Time: 18:51 rt 09/13 17:53 Order name: NT PRO-BNP; Complete Time: 18:51 rt 09/13 17:53 Order name: Troponin HS; Complete Time: 18:51 rt 09/13 22:42 Order name: Lipid Profile EDMS 09/13 22:42 Order name: Lipid Profile EDMS 09/13 22:42 Order name: Troponin High Sensitivity EDMS 09/13 22:42 Order name: Troponin High Sensitivity EDMS 09/13 22:42 Order name: Troponin High Sensitivity EDMS 09/13 22:42 Order name: Troponin High Sensitivity EDMS 09/13 22:42 Order name: Troponin High Sensitivity EDMS 09/13 17:53 Order name: XRAY Chest (1 view); Complete Time: 18:51 rt 03 22:42 Order name: Echo with Doppler EDMS 09/13 22:42 Order name: CONS Physician Consult EDMS 09/13 17:53 Order name: Cardiac monitoring; Complete Time: 18:02 rt 03 17:53 Order name: EKG - Nurse/Tech; Complete Time: 18:02 rt 09/13 17:53 Order name: IV Saline Lock; Complete Time: 18:02 rt 09/13 17:53 Order name: Labs collected and sent; Complete Time: 18:02 rt 09/13 17:53 Order name: O2 Per Protocol; Complete Time: 18:02 rt 09/13 17:53 Order name: O2 Sat Monitoring; Complete Time: 18:02 rt EC:27 Rate is 73 beats/min. Rhythm is irregularly irregular, A fib with Occasional PVCs. QRS rt [place] is Normal. QRS interval is normal. QT interval is normal. No Q waves. No ST changes noted. Interpreted by me. Administered Medications: 18:02 Drug: Furosemide IVP 80 mg IVP once; give over 2 minutes Route: IVP; Site: left ld1 antecubital; 22:14 Follow up: Response: No adverse reaction ay Disposition Summary: 09/13/24 20:31 Hospitalization Ordered Notes: Hospitalization Status: Observation rt Provider: Sharath Bella rt Location: Telemetry/MedSurg (observation) rt Condition: Fair rt Problem: an acute exacerbation rt Symptoms: have improved rt Bed/Room Type: Standard rt Room Assignment: 407(09/13/24 23:15) eb1 Diagnosis - CHF exacerbation rt - Elevated troponin rt Forms: - Medication Reconciliation Form rt - SBAR form rt - Leadership Thank You Letter rt Signatures: Dispatcher [employer] EDFL Christelle Delarosa RN RN eb1 Brittany Ferrell RN RN ld1 Lizbeth Hill RN RN vc1 Jitendra Bennett MD MD rt Becky Kim RN ay Corrections: (The following items were deleted from the chart) 17:42 17:31 Home Meds: Xarelto 20 mg Oral tablet [Inactive]; ld1 ld1 17:53 17:53 BASIC METABOLIC PANEL+C.LAB.BRZ ordered. EDMS EDMS 17:53 17:53 CBC+H.LAB.BRZ ordered. EDMS EDMS 17:53 17:53 HEPATIC FUNCTION+C.LAB.BRZ ordered. EDMS EDMS 17:53 17:53 PROBNP+C.LAB.BRZ ordered. EDMS EDMS 17:53 17:53 Troponin High Sensitivity+C.LAB.BRZ ordered. EDMS EDMS 22:55 20:31 rt vc1 23:15 22:55 403 vc1 eb1
--- NOTE | 2024-09-13 20:32 | ER ---
Nurse's Notes [facility] Name: Mellisa Patterson Age: 69 yrs Sex: Female : 1955 Arrival Date: 09/13/2024 Time: 17:21 Bed 17 Private MD: Diagnosis: CHF exacerbation;Elevated troponin Presentation: 09/13 17:39 Chief complaint: EMS states: toned out to home for SOB since yesterday. Coronavirus ld1 screen: At this time, the client does not indicate any symptoms associated with coronavirus-19. Ebola Screen: No symptoms or risks identified at this time. Risk Assessment: Do you want to hurt yourself or someone else? Patient reports no desire to harm self or others. Onset of symptoms was September 13, 2024. 17:39 Method Of Arrival: EMS: [facility] ld1 17:39 Acuity: JESI 2 ld1 Triage Assessment: 17:39 General: Appears in no apparent distress. comfortable, Behavior is calm, cooperative, ld1 appropriate for age. Pain: Denies pain. EENT: No signs and/or symptoms were reported regarding the EENT system. Neuro: Level of Consciousness is awake, alert, obeys commands, Oriented to person, place, time, situation. Cardiovascular: Capillary refill < 3 seconds Patient's skin is warm and dry. Rhythm is atrial fibrillation. Respiratory: Reports shortness of breath at rest on exertion Airway is patent Respiratory effort is even, unlabored, Onset: The symptoms/episode began/occurred yesterday, the patient has mild shortness of breath. GI: Abdomen is round non-distended. : No signs and/or symptoms were reported regarding the genitourinary system. Derm: No signs and/or symptoms reported regarding the dermatologic system. Musculoskeletal: No signs and/or symptoms reported regarding the musculoskeletal system. Historical: - Allergies: 17:31 insect venom; ld1 - PMHx: 17:31 Asthma; Atrial Fib; wounds; venous insufficiency; Hypertension; CHF; Bronchitis; Gout; ld1 - Immunization history:: Adult Immunizations up to date. - Infectious Disease History:: Denies. - Social history:: Smoking status: Patient denies any tobacco usage or history of. - Family history:: not pertinent. Screenin:42 [facility] ED Fall Risk Assessment (Adult) History of falling in the last 3 months, ld1 including since admission No falls in past 3 months (0 pts) Confusion or Disorientation No (0 pts) Intoxicated or Sedated No (0 pts) Impaired Gait No (0 pts) Mobility Assist Device Used No (0 pt) Altered Elimination No (0 pt) Score/Fall Risk Level 0 - 2 = Low Risk Oriented to surroundings, Hourly rounding (assess needs \T\ fall precautionary measures) done. Abuse screen: Denies threats or abuse. Denies injuries from another. Nutritional screening: No deficits noted. Tuberculosis screening: No symptoms or risk factors identified. Assessment: 17:42 Reassessment: See triage assessment. Cardiovascular: Capillary refill < 3 seconds ld1 Patient's skin is warm and dry. Rhythm is atrial fibrillation. Respiratory: Airway is patent Respiratory effort is even, unlabored, Breath sounds are clear bilaterally. 18:53 Reassessment: Patient appears in no apparent distress at this time. No changes from ld1 previously documented assessment. Patient and/or family updated on plan of care and expected duration. Pain level reassessed. Patient is alert, oriented x 3, equal unlabored respirations, skin warm/dry/pink. Purewick applied to patient. 19:00 General: Appears in no apparent distress. Behavior is calm, cooperative. Pain: Denies ay pain. Neuro: Level of Consciousness is awake, alert, obeys commands, Oriented to person, place, time, situation, Speech is normal. Cardiovascular: Denies Capillary refill < 3 seconds Patient's skin is warm and dry. Rhythm is atrial fibrillation Chest pain. Respiratory: Airway is patent Respiratory effort is even, unlabored, Respiratory pattern is regular, symmetrical. GI: No signs and/or symptoms were reported involving the gastrointestinal system. : No signs and/or symptoms were reported regarding the genitourinary system. Vital Signs: 17:39 BP 157 / 116; Pulse 68; Resp 18; Pulse Ox 93% on R/A; ld1 18:54 BP 189 / 123; Pulse 83; Resp 18; Pulse Ox 98% on R/A; ld1 20:30 BP 183 / 116; Pulse 74; Resp 16; Temp 98.2; Pulse Ox 100% on 2 lpm NC; ay 23:00 BP 197 / 142; Pulse 82; Resp 19; Pulse Ox 98% on 2 lpm NC; ay ED Course: 17:31 Patient arrived in ED. ld1 17:32 Jitendra Bennett MD is Attending Physician. rt 17:39 Arm band placed on right wrist. ld1 17:40 Triage completed. ld1 17:42 Patient has correct armband on for positive identification. Placed in gown. Bed in low ld1 position. Call light in reach. Side rails up X2. fabrication inspector on. Pulse ox on. NIBP on. Door closed. Noise minimized. Warm blanket given. 17:42 No provider procedures requiring assistance completed. Maintain EMS IV. Dressing ld1 intact. Good blood return noted. Site clean \T\ dry. Gauge \T\ site: 20G LAC. 18:40 XRAY Chest (1 view) In Process Unspecified. EDMS 18:44 Notified ED physician of a critical lab result(s). Trop 220. ld1 18:53 Brittany Ferrell, JOSE LUIS is Primary Nurse. ld1 19:21 Primary Nurse role handed off by Brittany Ferrell, JOSE LUIS rv1 20:31 Sharath Bella MD is Hospitalizing Provider. rt 22:10 Becky Kim RN is Primary Nurse. ay Administered Medications: 18:02 Drug: Furosemide IVP 80 mg IVP once; give over 2 minutes Route: IVP; Site: left ld1 antecubital; 22:14 Follow up: Response: No adverse reaction ay Medication: 17:42 VIS not applicable for this client. ld1 Outcome: 20:31 Decision to Hospitalize by Provider. rt 03/06 00:29 Patient left the ED. vc1 Signatures: Dispatcher [employer] EDMI Brittany Ferrell RN RN ld1 Lizbeth Hill RN RN vc1 Jitendra Bennett MD MD rt Yaneli Bob rv1 Becky Kim RN RN ay Corrections: (The following items were deleted from the chart) 03 17:42 17:31 Home Meds: Xarelto 20 mg Oral tablet [Inactive]; ld1 ld1
[2024-09-13] MEDS ORDERED: NITROGLYCERIN 0.4 MG/TAB SL PRN (22:33)
--- NOTE | 2024-09-13 23:29 | P.HP ---
Patient History Date of Service: 09/14/24 History of Present Illness: This is a 69-year-old female with a past medical history of CHF, A-fib, asthma, left leg wound, hypertension, gout presenting with shortness of breath for the last 3 days. She states she has been cleaning her garage which is full of dust, mold, mildew. Associated symptoms include insomnia and chest fullness. She believes there is an issue with the tubing of her oxygen. She states she does not wear oxygen at home. She has a home health nurse that comes and helps dress her wounds. She smokes 1/4 pack/day of cigarettes for the last 30 years. In the emergency room blood pressure was elevated 188/120. 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 Allergies insect venom Adverse Reaction (Verified 12/28/23 22:22) Anaphylaxis Home Medications: Bumetanide 1 mg PO DAILY 12/28/23 Gabapentin 600 mg PO TID 12/28/23 Sertraline [Zoloft*] 100 mg PO DAILY 12/28/23 Topiramate 2 tab PO BEDTIME 12/28/23 Amiodarone HCl [Cordarone*] 200 mg PO DAILY #30 tab 12/30/23 Atorvastatin Calcium [Lipitor*] 20 mg PO SEECOM #30 tab 12/30/23 Rivaroxaban [Xarelto] 20 mg PO DAILY #30 tab 12/30/23 Topiramate 50 mg PO BID #60 tab 12/30/23 hydrOXYzine HCL [Atarax] 50 mg PO TID PRN #30 tab 12/30/23 - Past Medical/Surgical History Diabetic: No -: Obstructive sleep apnea -: HTN -: CHFdiastolic -: Gout -: Venous insufficiency -: Tobacco abuse -: Morbid obesity -: Atrial flutter -: Anterior communicating artery aneurysm4 mm -: Focal moderate M1 stenosis -: Skin graft -: x2 -: vein removal on R leg (2014) Psychosocial/ Personal History: Lives at home with family - Family History Mother -: Diabetes Notes: Alzheimer's Father -: Heart disease, Stroke Brother -: Heart disease, Diabetes - Social History Alcohol use: No CD- Drugs: No Caffeine use: No Review of Systems General: Weakness Eyes: Unremarkable ENT: Unremarkable Respiratory: Shortness of Breath Cardiovascular: Unremarkable Gastrointestinal: Unremarkable Genitourinary: Unremarkable Musculoskeletal: Unremarkable Integumentary: Lesions Neurological: Unremarkable Physical Examination - Physical Exam General: Alert, In no apparent distress HEENT: Atraumatic, Normocephalic Neck: Supple Respiratory: Clear to auscultation bilaterally, Normal air movement Cardiovascular: Edema Capillary refill: <2 Seconds Gastrointestinal: Normal bowel sounds Musculoskeletal: No clubbing Integumentary: Venous stasis ulcer Neurological: Normal speech - Studies Laboratory Data (last 24 hrs) 09/13/24 09/13/24 18:07 18:07 WBC 5.10 Hgb 11.3 L Hct 34.6 L Plt Count 160 Sodium 142 Potassium 3.5 BUN 26 H Creatinine 1.22 H Glucose 90 Total Bilirubin 0.5 AST 18 ALT 19 Alkaline Phosphatase 77 Assessment and Plan - Plan Heart failure exacerbation with preserved ejection fraction Elevated troponin Atrial fibrillation Left leg wound Hypertensive urgency Gout Hypercholesterolemia Chest x-ray with CHF pattern, elevated BNP, was given 80 mg of IV Lasix in the ED Continue Bumex Elevated troponin, trend troponins, cardiology consulted, echo pending Continue amiodarone Hydralazine as needed for SBP greater than 180 Continue Xarelto Continue atorvastatin, as needed nitroglycerin Wound care consult for left leg wound DVT prophylaxis with heparin - Advance Directives Does patient have a Living Will: No Does patient have a Durable POA for Healthcare: No
[2024-09-13] MEDS: HYDRALAZINE HCL 20 MG/ML VIAL IV PRN (23:36)
[2024-09-14] MEDS: ATORVASTATIN 20 MG TAB PO SCH (01:09)
[2024-09-14] MEDS: HEPARIN 5000 UNIT/ML 1 ML VIAL SQ SCH (01:09)
[2024-09-14 02:07] LABS: Troponin High Sensitivity 253.6 pg/mL (<58.9)
[2024-09-14] MEDS: HEPARIN/D5W 25,000 UNIT/500 ML BAG IV SCH (03:19)
[2024-09-14] MEDS: TRAMADOL HCL 50 MG TAB PO ONE (03:20)
[2024-09-14] MEDS ORDERED: BUMETANIDE 1 MG TABLET PO SCH (09:00)
[2024-09-14] MEDS ORDERED: RIVAROXABAN 20 MG TABLET PO SCH (09:00)
[2024-09-14] MEDS ORDERED: hydrOXYzine HCL 25 MG TAB PO PRN (09:06)
[2024-09-14] MEDS: AMIODARONE HCL 200 MG TAB PO SCH (10:30)
[2024-09-14] MEDS: SERTRALINE HCL 100 MG TAB PO SCH (10:30)
[2024-09-14] MEDS: GABAPENTIN 300 MG CAP PO SCH (10:30)
[2024-09-14] MEDS: TOPIRAMATE 25 MG TAB PO SCH ×2 (10:31→20:42)
[2024-09-14] MEDS: BUMETANIDE 1 MG/4 ML VIAL IV SCH (10:39)
[2024-09-14] MEDS: FLU (Fluarix Triv) TS24-25(6MOS UP)/PF 45 MCG/0.5 ML Syringe IM ONE (12:00)
--- NOTE | 2024-09-14 13:22 | P.CNS ---
Date of Consult: 09/14/24 Chief Complaint: heart failure History of Present Illness: Patient with PMH of Heart failure preserved EF, Atrial fibrillation, presented with worsening SOB, WHITLEY and lower extremities edema, denies chest pain, no palpitations, no syncope. Allergies insect venom Adverse Reaction (Verified 12/28/23 22:22) Anaphylaxis Home medications list reviewed: Yes Home Medications: Bumetanide 1 mg PO DAILY 12/28/23 Gabapentin 600 mg PO TID 12/28/23 Sertraline [Zoloft*] 100 mg PO DAILY 12/28/23 Topiramate 2 tab PO BEDTIME 12/28/23 Amiodarone HCl [Cordarone*] 200 mg PO DAILY #30 tab 12/30/23 Atorvastatin Calcium [Lipitor*] 20 mg PO SEECOM #30 tab 12/30/23 Rivaroxaban [Xarelto] 20 mg PO DAILY #30 tab 12/30/23 Topiramate 50 mg PO BID #60 tab 12/30/23 hydrOXYzine HCL [Atarax] 50 mg PO TID PRN #30 tab 12/30/23 - Past Medical/Surgical History Diabetic: No -: Obstructive sleep apnea -: HTN -: CHFdiastolic -: Gout -: Venous insufficiency -: Tobacco abuse -: Morbid obesity -: Atrial flutter -: Anterior communicating artery aneurysm4 mm -: Focal moderate M1 stenosis -: Skin graft -: x2 -: vein removal on R leg (2014) Psychosocial/ Personal History: Lives at home with family - Family History Mother Medical History: Diabetes Notes: Alzheimer's Father Medical History: Heart disease, Stroke Brother Medical History: Heart disease, Diabetes - Social History Smoking Status: Current every day smoker Alcohol use: No CD- Drugs: No Caffeine use: No Place of Residence: Home Review of Systems 10-point ROS is otherwise unremarkable Physical Examination Temp Pulse Resp BP Pulse Ox 98.0 F 66 16 137/69 98 09/14/24 12:00 09/14/24 12:00 09/14/24 12:00 09/14/24 12:00 09/14/24 12:00 General: Alert, In no apparent distress HEENT: Atraumatic, PERRLA, Mucous membr. moist/pink, EOMI, Sclerae nonicteric Neck: Supple, 2+ carotid pulse no bruit, No LAD, Without JVD or thyroid abnormality Respiratory: Clear to auscultation bilaterally, Normal air movement Cardiovascular: Regular rate/rhythm, Normal S1 S2 Gastrointestinal: Normal bowel sounds, No tenderness Musculoskeletal: No tenderness Integumentary: No rashes Neurological: Normal gait, Normal speech, Normal tone, Normal affect Lymphatics: No axilla or inguinal lymphadenopathy Laboratory Data (last 24 hrs) 09/13/24 09/13/24 18:07 18:07 WBC 5.10 Hgb 11.3 L Hct 34.6 L Plt Count 160 Sodium 142 Potassium 3.5 BUN 26 H Creatinine 1.22 H Glucose 90 Total Bilirubin 0.5 AST 18 ALT 19 Alkaline Phosphatase 77 - Problems (1) Acute on chronic diastolic heart failure Current Visit: Yes Status: Acute Plan: patient mention that she has not been complaint with her medications agree with Bumex 1 mg IV BID add Coreg 3.125 mg po BID add Losartan 25 mg daily (patient unable to offer entresto) add Aldactone 25 mg daily continue to monitor input and output and electrolytes. (2) Atrial fibrillation Current Visit: No Status: Chronic Plan: currently in sinus rhythm continue Amiodarone 200 mg daily Continue Xarelto 20 mg daily Qualifiers: Atrial fibrillation type: longstanding persistent Qualified Code(s): I48.11 - Longstanding persistent atrial fibrillation
[2024-09-14] MEDS: ACETAMINOPHEN 500 MG TAB PO PRN (14:13)
--- NOTE | 2024-09-14 16:21 | P.PN ---
Subjective Date of Service: 09/14/24 Chief Complaint: heart failure Patient reports significant improvement in his shortness of breath. She is maintained on 2 L oxygen by nasal cannula. She denies any chest pain Physical Examination - Vital Signs Temperature: 98.0 F Blood Pressure: 137/69 Pulse: 66 Respirations: 16 Pulse Ox (%): 98 - Studies Laboratory Data (last 24 hrs) 09/13/24 09/13/24 18:07 18:07 WBC 5.10 Hgb 11.3 L Hct 34.6 L Plt Count 160 Sodium 142 Potassium 3.5 BUN 26 H Creatinine 1.22 H Glucose 90 Total Bilirubin 0.5 AST 18 ALT 19 Alkaline Phosphatase 77 Assessment And Plan - Plan Physical examination General: Alert and oriented x3, NAD, HEENT: Conjunctiva not pale, anicteric sclera Neck: Supple, no elevated JVD Heart: Heart sounds 1 and 2 normal, regular rhythm, normal rate, no pedal edema Lungs: Mild bibasilar crackles, adequate breath sounds bilaterally, no rhonchi. Abdomen: Soft, nondistended, nontender, normal bowel sounds. Extremities: No tenderness, no deformity Skin: Normal skin turgor, left medial ankle healing wound. Neuro: No focal motor deficit. Normal speech. Psychiatry: Normal mood, no agitation. Diagnosis Acute on chronic diastolic heart failure NSTEMI type 2 Atrial fibrillation Left leg chronic ulcer Hypertensive urgency Gout Hypercholesterolemia Plan Acute on chronic diastolic heart failure NSTEMI type [address] Burns input appreciated. IV Bumex for 1 more day and transition to home dose oral Bumex. Elevated troponin likely secondary to demand ischemia from severe hypertension. Wean off oxygen Blood pressure improved. Continue home antihypertensive. Hydralazine as needed for BP spikes Aldactone, losartan and Coreg to be added per cardiology. Chronic atrial fibrillation Patient is currently in sinus rhythm. Continue amiodarone and Xarelto. Chronic leg ulcer Local wound care. DVT prophylaxis: Xarelto Advanced directive: Full code
[2024-09-14] MEDS: carvediloL 3.125 MG TAB PO SCH (18:15)
[2024-09-15 04:48] LABS: Absolute Eosinophils 0.1 K/uL (0-0.5); Absolute Lymphocytes (CBC) 1.1 K/uL (0.7-4.9); Absolute Monocytes 1.1 K/uL (0.1-1.3); Absolute Neutrophil 3.3 K/uL (1.8-8.0); Basophils % 0.5 % (0-1.3); Eosinophils % 2.5 % (0-4.4); Hematocrit 34.8 % (36.0-45.0); Hemoglobin 11.2 g/dL (12.0-15.0); Lymphocytes % 19.4 % (15.3-44.8); MCH 30.3 pg (27.0-35.0); MCHC 32.1 g/dL (32.0-36.0); MCV 94.2 fL (80-100); MPV 10.8 fL (7.6-11.3); Monocytes % 19.6 % (3.3-12.3); Nucleated Red Blood Cells % 0.1 % (0-0); Platelets 156 thou/uL (152-406); RBC Red Blood Cell Count 3.69 M/uL (3.86-4.86); Red Cell Distribution Width 14.6 % (12.1-15.2)
[2024-09-15 05:04] LABS: Anion Gap 7.5 mEq/L (5.0-15.0); Potassium 3.5 mEq/L (3.5-5.1)
--- NOTE | 2024-09-15 06:52 | ECHO ---
HEIGHT: 5 ft 7 in WEIGHT: 258 lb 0 oz DATE OF STUDY: 09/14/[address]: Sharath Bella MD 2-DIMENSIONAL: YES M.MODE: YES DOPPLER: YES COLOR FLOW: YES TDS: PORTABLE: YES DEFINITY: YES BUBBLE STUDY: DIAGNOSIS: HISTORY OF HEART FAILURE WITH PRESERVED EJECTION FRACTION CARDIAC HISTORY: CATHERIZATION: NO SURGERY: NO PROSTHETIC VALVE: NO PACEMAKER: NO MEASUREMENTS (cm) DIASTOLIC (NORMALS) SYSTOLIC (NORMALS) IVSd 1.4 (0.6-1.2) LA Diam 3.5 (1.9-4.0) LVEF 50-55% LVIDd 5.0 (3.5-5.7) LVIDs 4.2 (2.0-3.5) %FS LVPWd 1.4 (0.6-1.2) Ao Diam 2.6 (2.0-3.7) 2 DIMENSIONAL ASSESSMENT: RIGHT ATRIUM: NORMAL LEFT ATRIUM: MODERATELY DILATED RIGHT VENTRICLE: NORMAL LEFT VENTRICLE: MODERATE LEFT VENTRICULAR HYPERTROPHY TRICUSPID VALVE: TRACE TRICUSPID REGURGITATION MITRAL VALVE: TRACE MITRAL REGURGITATION PULMONIC VALVE: NORMAL AORTIC VALVE: NORMAL PERICARDIAL EFFUSION: NONE AORTIC ROOT: NORMAL LEFT VENTRICULAR WALL MOTION: NORMAL DOPPLER/COLOR FLOW: GRADE II DIASTOLIC DYSFUNCTION COMMENTS: 1. NORMAL LEFT VENTRICULAR SYSTOLIC FUNCTION, EJECTION FRACTION 50-55%, NORMAL WALL MOTION 2. GRADE II DIASTOLIC DYSFUNCTION 3. ELEVATED FILILNG PRESSURE (RIGHT ATRIAL PRESSURE GREATER THAN 20 mmHg) TECHNOLOGIST: MAURISIO MERRITT
[2024-09-15 07:11] LABS: Band Neutrophils 7 % (0-1); Blood Morphology Comment NOTED (NOT SEEN); Differential Total Cells Count 100; Eosinophils 1 % (0-3); Lymphocytes 24 % (15-42); Monocytes 11 % (0-10); Platelet Estimate ADEQ; Polychromasia SLIGHT; Reactive Lymphocytes 9 %; Segmented Neutrophils 47 % (40-80)
[2024-09-15] MEDS: SPIRONOLACTONE 25 MG TABLET PO SCH (10:42)
[2024-09-15] MEDS: TOPIRAMATE 25 MG TAB PO SCH ×2 (10:43→21:03)
[2024-09-15] MEDS: LOSARTAN POTASSIUM 50 MG TABLET PO SCH (10:43)
--- NOTE | 2024-09-15 16:39 | P.PN ---
Subjective Date of Service: 09/15/24 Chief Complaint: heart failure Patient reports no major changes from yesterday. Patient desaturated with ambulation on room air with walking She is not hypoxic on room air at rest She denies any chest pain Physical Examination - Vital Signs Temperature: 98.7 F Blood Pressure: 135/81 Pulse: 55 Respirations: 19 Pulse Ox (%): 97 Assessment And Plan - Plan Physical examination General: Alert and oriented x3, NAD, HEENT: Anicteric sclera Neck: Supple, no elevated JVD Heart: Heart sounds 1 and 2 normal, regular rhythm, normal rate, no pedal edema Lungs: Clear to auscultation adequate breath sounds bilaterally, no rhonchi. Abdomen: Soft, nondistended, nontender, normal bowel sounds. Extremities: No tenderness, no deformity Skin: Normal skin turgor, left medial ankle healing wound. Neuro: No focal motor deficit. Normal speech. Psychiatry: Normal mood, no agitation. Diagnosis Acute on chronic diastolic heart failure NSTEMI type 2 Atrial fibrillation Left leg chronic ulcer Hypertensive urgency Gout Hypercholesterolemia Plan Acute on chronic diastolic heart failure NSTEMI type 2 Hypertensive urgency Acute on chronic respiratory failure with hypoxia Cardiology Dr. Burns evaluated patient. Patient is hypoxic on room air with exertion. Continue IV Bumex Elevated troponin likely secondary to demand ischemia from severe hypertension. Wean off oxygen. Transition from heparin drip to home dose oral Xarelto. Continue home antihypertensive. Hydralazine as needed for BP spikes Continue Aldactone, losartan and Coreg. Chronic atrial fibrillation Patient is currently in sinus rhythm. Continue amiodarone and Xarelto. Chronic leg ulcer Local wound care. DVT prophylaxis: Xarelto Advanced directive: Full code
[2024-09-15] MEDS: RIVAROXABAN 20 MG TABLET PO SCH (17:12)
[2024-09-16] MEDS: TRAMADOL HCL 50 MG TAB PO ONE (01:20)
[2024-09-16 06:43] LABS: Absolute Eosinophils 0.1 K/uL (0-0.5); Absolute Lymphocytes (CBC) 0.9 K/uL (0.7-4.9); Absolute Monocytes 1.1 K/uL (0.1-1.3); Absolute Neutrophil 3.4 K/uL (1.8-8.0); Basophils % 0.4 % (0-1.3); Eosinophils % 1.8 % (0-4.4); Hematocrit 33.5 % (36.0-45.0); Lymphocytes % 16.6 % (15.3-44.8); MCH 30.8 pg (27.0-35.0); MCHC 32.9 g/dL (32.0-36.0); MCV 93.5 fL (80-100); MPV 10.4 fL (7.6-11.3); Monocytes % 19.8 % (3.3-12.3); Neutrophils % 61.4 % (41.7-73.7); Nucleated Red Blood Cells % 0.1 % (0-0); Platelets 163 thou/uL (152-406); RBC Red Blood Cell Count 3.58 M/uL (3.86-4.86); Red Cell Distribution Width 14.5 % (12.1-15.2)
[2024-09-16 07:03] LABS: Anion Gap 7.8 mEq/L (5.0-15.0); Potassium 3.8 mEq/L (3.5-5.1)
--- NOTE | 2024-09-16 17:13 | P.PN ---
Subjective Date of Service: 09/16/24 Chief Complaint: heart failure Patient states her breathing is better She is still requiring oxygen by nasal cannula She denies any chest pain Physical Examination - Vital Signs Temperature: 98.6 F Blood Pressure: 127/88 Pulse: 52 Respirations: 16 Pulse Ox (%): 96 Assessment And Plan - Plan Physical examination General: Alert and oriented x3, NAD, Neck: No elevated JVD Heart: Heart sounds 1 and 2 normal, regular rhythm, normal rate, no pedal edema Lungs: Clear to auscultation adequate breath sounds bilaterally, no rhonchi. Abdomen: Soft, nondistended, nontender, normal bowel sounds. Extremities: No tenderness, no deformity Skin: Normal skin turgor, left medial ankle healing wound. Neuro: No focal motor deficit. Normal speech. Psychiatry: Normal mood, no agitation. Diagnosis Acute on chronic diastolic heart failure NSTEMI type 2 Atrial fibrillation Left leg chronic ulcer Hypertensive urgency Gout Hypercholesterolemia Plan Acute on chronic diastolic heart failure NSTEMI type 2 Hypertensive urgency Acute on chronic respiratory failure with hypoxia Cardiology Dr. Burns evaluated patient. Patient is hypoxic on room air with exertion. Continue IV Bumex Elevated troponin likely secondary to demand ischemia from severe hypertension. Wean off oxygen. Transition from heparin drip to home dose oral Xarelto. Continue home antihypertensive. Hydralazine as needed for BP spikes Continue Aldactone, losartan and Coreg. Chronic atrial fibrillation Patient is currently in sinus rhythm. Continue amiodarone and Xarelto. Chronic leg ulcer Local wound care. 09/16 Patient respiratory status is gradually improving. Blood pressure is improved, patient is currently normotensive. Increase Bumex dose for the next couple of doses. Monitor renal function. Wean oxygen as tolerated. Monitor intake and output. Monitor renal function. DVT prophylaxis: Xarelto Advanced directive: Full code
[2024-09-16] MEDS: BUMETANIDE 1 MG/4 ML VIAL IV SCH (21:00)
[2024-09-17] MEDS: ALBUTEROL 2.5 MG/3 ML NEB SOL NEB PRN (05:39)
[2024-09-17] MEDS: IPRATROPIUM BROM 0.5MG/2.5ML NEB PRN (05:39)
[2024-09-17 06:46] LABS: Anion Gap 5.9 mEq/L (5.0-15.0); Potassium 3.9 mEq/L (3.5-5.1)
[2024-09-17 06:47] LABS: Absolute Eosinophils 0.2 K/uL (0-0.5); Absolute Monocytes 0.9 K/uL (0.1-1.3); Absolute Neutrophil 2.7 K/uL (1.8-8.0); Basophils % 0.7 % (0-1.3); Eosinophils % 3.5 % (0-4.4); Hematocrit 34.3 % (36.0-45.0); Hemoglobin 11.1 g/dL (12.0-15.0); Lymphocytes % 20.3 % (15.3-44.8); MCH 30.5 pg (27.0-35.0); MCHC 32.2 g/dL (32.0-36.0); MCV 94.6 fL (80-100); MPV 10.1 fL (7.6-11.3); Neutrophils % 56.5 % (41.7-73.7); Nucleated Red Blood Cells % 0.1 % (0-0); Platelets 172 thou/uL (152-406); RBC Red Blood Cell Count 3.63 M/uL (3.86-4.86); Red Cell Distribution Width 14.7 % (12.1-15.2)
[2024-09-17] MEDS: ACETIC ACID 0.25% IRRIG IRR SCH (08:58)
[2024-09-17 13:09] LABS: Influenza A Ag Negative; Influenza B Ag Negative; SARS-CoV-2 Antigen Rapid Res Negative (Negative)
--- NOTE | 2024-09-17 17:17 | P.PN ---
Subjective Date of Service: 09/17/24 Chief Complaint: heart failure Patient has intermittent fever otherwise feels her shortness of breath is better. She is maintained on 2 L oxygen by nasal cannula. Physical Examination - Vital Signs Temperature: 99.1 F Blood Pressure: 112/58 Pulse: 63 Respirations: 18 Pulse Ox (%): 95 Assessment And Plan - Plan Physical examination General: Alert and oriented x3, NAD, Neck: No elevated JVD Heart: Heart sounds 1 and 2 normal, regular rhythm, normal rate, no pedal edema Lungs: Clear to auscultation adequate breath sounds bilaterally, no rhonchi. Abdomen: Soft, nondistended, nontender, normal bowel sounds. Extremities: No tenderness, no deformity Skin: Normal skin turgor, left medial ankle healing wound. Neuro: No focal motor deficit. Normal speech. Psychiatry: Normal mood, no agitation. Diagnosis Acute on chronic diastolic heart failure NSTEMI type 2 Atrial fibrillation Left leg chronic ulcer Hypertensive urgency Gout Hypercholesterolemia Plan Acute on chronic diastolic heart failure NSTEMI type 2 Hypertensive urgency Acute on chronic respiratory failure with hypoxia Cardiology Dr. Burns evaluated patient. Patient is hypoxic on room air with exertion. Continue IV Bumex Elevated troponin likely secondary to demand ischemia from severe hypertension. Wean off oxygen. Transition from heparin drip to home dose oral Xarelto. Continue home antihypertensive. Hydralazine as needed for BP spikes Continue Aldactone, losartan and Coreg. Chronic atrial fibrillation Patient is currently in sinus rhythm. Continue amiodarone and Xarelto. Chronic leg ulcer Local wound care. 09/16 Patient respiratory status is gradually improving. Blood pressure is improved, patient is currently normotensive. Increase Bumex dose for the next couple of doses. Monitor renal function. Wean oxygen as tolerated. Monitor intake and output. Monitor renal function. 09/17 Patient is experiencing intermittent fever And wound cultures growing multiple organisms-Proteus, Serratia marcescens and Pseudomonas. These organisms are likely colonizers however will treat with antibiotics given her intermittent fever. Blood cultures obtained. Flu and COVID screen are negative. Repeat chest x-ray. Continue Bumex for CHF Blood pressure has improved Continue amiodarone and Xarelto for A-fib DVT prophylaxis: Xarelto Advanced directive: Full code
--- NOTE | 2024-09-17 18:11 | RAD REPORT ---
Procedure: Chest Single View HISTORY: Cough COMPARISON: September 13, 2024 FINDINGS: Mild bilateral pulmonary opacities No significant pleural effusion noted. The heart is markedly enlarged. IMPRESSION: These findings probably indicate mild CHF
[2024-09-17] MEDS: SMZ./TMP. 800/160 MG TABLET PO SCH (21:10)
[2024-09-17] MEDS: CIPROFLOXACIN HCL 500 MG TAB PO SCH (21:10)
[2024-09-18 06:35] LABS: Anion Gap 5.9 mEq/L (5.0-15.0); Potassium 3.9 mEq/L (3.5-5.1)
[2024-09-18 06:39] LABS: Absolute Basophils 0.1 K/uL (0-0.5); Absolute Eosinophils 0.1 K/uL (0-0.5); Absolute Lymphocytes (CBC) 0.9 K/uL (0.7-4.9); Absolute Monocytes 1.1 K/uL (0.1-1.3); Absolute Neutrophil 3.4 K/uL (1.8-8.0); Basophils % 1.4 % (0-1.3); Hematocrit 36.2 % (36.0-45.0); Hemoglobin 11.4 g/dL (12.0-15.0); Lymphocytes % 16.3 % (15.3-44.8); MCHC 31.5 g/dL (32.0-36.0); MCV 95.4 fL (80-100); MPV 9.9 fL (7.6-11.3); Monocytes % 18.9 % (3.3-12.3); Neutrophils % 61.4 % (41.7-73.7); Platelets 180 thou/uL (152-406); Red Cell Distribution Width 14.9 % (12.1-15.2)
--- NOTE | 2024-09-18 13:35 | P.PN ---
Subjective Date of Service: 09/18/24 Chief Complaint: heart failure Subjective: No new changes, No C/O voiced, Tolerating diet, Ambulating, Improving Review of Systems 10-point ROS is otherwise unremarkable Physical Examination - Vital Signs Temperature: 100 F Blood Pressure: 128/61 Pulse: 55 Respirations: 18 Pulse Ox (%): 98 - Physical Exam General: Alert, In no apparent distress HEENT: Atraumatic, PERRLA, EOMI Neck: Supple, JVD not distended Respiratory: Clear to auscultation bilaterally, Normal air movement Cardiovascular: Regular rate/rhythm, Normal S1 S2 Gastrointestinal: Normal bowel sounds, No tenderness Musculoskeletal: No tenderness Integumentary: No rashes Neurological: Normal speech, Normal tone, Normal affect Lymphatics: No axilla or inguinal lymphadenopathy - Studies Medications List Reviewed: Yes Assessment And Plan - Current Problems (Diagnosis) (1) Acute on chronic diastolic heart failure Current Visit: Yes Status: Acute Plan: patient mention that she has not been complaint with her medications continue IV diuresis with Bumex Coreg 3.125 mg po BID Losartan 25 mg daily (patient unable to offer entresto) Aldactone 25 mg daily continue to monitor input and output and electrolytes. (2) Atrial fibrillation Current Visit: No Status: Chronic Plan: currently in sinus rhythm continue Amiodarone 200 mg daily Continue Xarelto 20 mg daily Qualifiers: Atrial fibrillation type: longstanding persistent Qualified Code(s): I48.11 - Longstanding persistent atrial fibrillation
--- NOTE | 2024-09-18 16:38 | P.PN ---
Subjective Date of Service: 09/18/24 Chief Complaint: heart failure Patient continued to experience intermittent fever. Reports significant improvement in her shortness of breath. She is maintained on 2 L oxygen by nasal cannula. Patient states she uses oxygen at home. Physical Examination - Vital Signs Temperature: 98.2 F Blood Pressure: 128/61 Pulse: 55 Respirations: 18 Pulse Ox (%): 98 - Studies Medications List Reviewed: Yes Assessment And Plan - Plan Physical examination General: Alert and oriented x3, NAD, Neck: No elevated JVD Heart: Heart sounds 1 and 2 normal, regular rhythm, normal rate, no pedal edema Lungs: Clear to auscultation adequate breath sounds bilaterally, no rhonchi. Abdomen: Soft, nondistended, nontender, normal bowel sounds. Extremities: No tenderness, no deformity Skin: Normal skin turgor, left medial ankle healing wound, wound looks clean. Neuro: No focal motor deficit. Normal speech. Psychiatry: Normal mood, no agitation. Diagnosis Acute on chronic diastolic heart failure NSTEMI type 2 Atrial fibrillation Left leg chronic ulcer Hypertensive urgency Gout Hypercholesterolemia Plan Acute on chronic diastolic heart failure NSTEMI type 2 Hypertensive urgency Acute on chronic respiratory failure with hypoxia Cardiology Dr. Burns evaluated patient. Patient is hypoxic on room air with exertion. Continue IV Bumex Elevated troponin likely secondary to demand ischemia from severe hypertension. Wean off oxygen. Transition from heparin drip to home dose oral Xarelto. Continue home antihypertensive. Hydralazine as needed for BP spikes Continue Aldactone, losartan and Coreg. Chronic atrial fibrillation Patient is currently in sinus rhythm. Continue amiodarone and Xarelto. Chronic leg ulcer Local wound care. 09/16 Patient respiratory status is gradually improving. Blood pressure is improved, patient is currently normotensive. Increase Bumex dose for the next couple of doses. Monitor renal function. Wean oxygen as tolerated. Monitor intake and output. Monitor renal function. 09/17 Patient is experiencing intermittent fever And wound cultures growing multiple organisms-Proteus, Serratia marcescens and Pseudomonas. These organisms are likely colonizers however will treat with antibiotics given her intermittent fever. Blood cultures obtained. Flu and COVID screen are negative. Repeat chest x-ray. Continue Bumex for CHF Blood pressure has improved Continue amiodarone and Xarelto for A-fib 09/18 Patient continued to experience intermittent fever. Blood cultures have yielded no growth on day 1. Chest x-ray 09/17 showed mild CHF, no infiltrate. Continue oral ciprofloxacin and Bactrim. Patient is diuresing well with IV Bumex. Cardiology recommending 1 more day of diuresis Monitor renal function. Increase activity as tolerated Continue amiodarone and Xarelto for atrial fibrillation. DVT prophylaxis: Xarelto Advanced directive: Full code
[2024-09-18] MEDS: BUMETANIDE 1 MG/4 ML VIAL IV SCH (20:17)
[2024-09-19 07:00] LABS: Absolute Eosinophils 0.1 K/uL (0-0.5); Absolute Lymphocytes (CBC) 1.3 K/uL (0.7-4.9); Absolute Monocytes 1.1 K/uL (0.1-1.3); Absolute Neutrophil 2.9 K/uL (1.8-8.0); Basophils % 0.6 % (0-1.3); Eosinophils % 2.3 % (0-4.4); Hematocrit 35.5 % (36.0-45.0); Hemoglobin 11.4 g/dL (12.0-15.0); Lymphocytes % 23.9 % (15.3-44.8); MCH 30.1 pg (27.0-35.0); MCHC 32.1 g/dL (32.0-36.0); MCV 93.7 fL (80-100); Monocytes % 20.3 % (3.3-12.3); Neutrophils % 52.9 % (41.7-73.7); Platelets 187 thou/uL (152-406); RBC Red Blood Cell Count 3.78 M/uL (3.86-4.86); Red Cell Distribution Width 14.7 % (12.1-15.2)
[2024-09-19 07:09] LABS: Anion Gap 6.9 mEq/L (5.0-15.0); Potassium 3.9 mEq/L (3.5-5.1)
--- NOTE | 2024-09-19 08:31 | P.PN ---
Date of Service: 09/19/24 Subjective: feels swelling, breathing improving daily much less edema compared to when presented to ED per patient denies any worsening problems hasn't had a BM since before admission. Feeling constipated. intermittent low grade temps yesterday afternoon, none overnight/this morning. ROS: 10 point ROS as noted above, otherwise negative Physical Exam: GEN: Alert, oriented, NAD CV: Regular rate and rhythm, trace edema Pulm: Nonlabored respirations on room air, clear bilaterally Integumentary: Left medial ankle chronic wound. no purulent drainage, no surrounding erythema Neuro: Normal speech, normal affect Problem List: Acute on chronic respiratory failure with hypoxia secondary to acute on chronic diastolic CHF exacerbation NSTEMI type 2 Hypertensive urgency, resolved Chronic lower left extremity ulcer EDELMIRA Constipation Chronic atrial fibrillation, on chronic anticoagulation Gout Hypercholesterolemia Acute on chronic respiratory failure with hypoxia secondary to acute on chronic diastolic CHF exacerbation NSTEMI type 2 Hypertensive urgency, resolved on admission, presents with worsening shortness of breath x3 days. SOB worsened with exertion. +orthopnea. reports some degree on non-compliance with home meds. [place] her diuretics haven't been working as well recently. CXR (09/17): mild CHF. no infiltrate. Troponins mildly elevated but trended flat. Peak 253. likely secondary to demand ischemia from severe hypertension. Patient is hypoxic on room air with exertion. Wean oxygen as tolerated. continue oral spironolactone, losartan and Coreg. s/p heparin drip; switched to oral Xarelto 09/15. Cardiology is following diuresed well - Bumex decreased to 1 mg BID 09/18 09/19 - nephrology consulted decrease bumex and adjust BP meds given low-normal BP and rising Cr Chronic lower left extremity ulcer Continue local wound care: Clean wound with acetic acid solution, apply dry gauze and wrap with Kerlix daily. Blood cx without growth since 09/17 Covid/Flu negative. Wound culture growing multiple organisms: Pseudomonas Aeruginosa, Serratia Marcascens, Proteus Mirabilis continue oral bactrim / cipro (09/17-) intermittent low grade temps last 48 hours EDELMIRA suspect multifactorial - in setting of relative hypotension, diuresis continue to monitor renal function Nephrology consulted Constipation no BM since before admission colace, miralax Chronic atrial fibrillation, on chronic anticoagulation Continue home amiodarone and Xarelto. Gout Hypercholesterolemia confirm home meds, restart as appropriate VTE: home xarelto Code: Full Dispo: Home, ~24-48 hrs Time Spent Managing Pts Care (In Minutes): 55
[2024-09-19 10:58] LABS: Blood Morphology Comment NOT SEEN (NOT SEEN); Platelet Estimate ADEQ; White Blood Cell Scan OK (OK)
--- NOTE | 2024-09-19 11:24 | EKG ---
Test Date: 2024-09-14 Test Time: 03:46:04 Pc Support Specialist: PVAL MEASUREMENT RESULTS: Intervals: Rate: 78 [place]: QRSD: 104 QT: 442 QTc: 503 [place]: P: MA: QRS: -13 T: 102 INTERPRETIVE STATEMENTS: Atrial fibrillation with premature ventricular or aberrantly conducted complexes Nonspecific T wave abnormality, probably digitalis effect Prolonged QT Abnormal ECG Compared to ECG 09/14/2024 03:43:40 Ventricular premature complex(es) now present T-wave abnormality still present Electronically Signed On 09-19-24 11:07:21 CDT by Billy Burns
--- NOTE | 2024-09-19 11:24 | EKG ---
Test Date: 2024-09-14 Test Time: 03:43:40 Licensed Massage Therapist: ALEXSANDRA MEASUREMENT RESULTS: Intervals: Rate: 71 [place]: QRSD: 100 QT: 464 QTc: 504 [place]: P: 50 ND: QRS: -11 T: 86 INTERPRETIVE STATEMENTS: Undetermined rhythm Nonspecific T wave abnormality Prolonged QT Abnormal ECG Compared to ECG 12/28/2023 09:20:06 Sinus bradycardia no longer present Atrial premature complex(es) no longer present T-wave abnormality still present Electronically Signed On 09-19-24 11:07:34 CDT by Billy Burns
--- NOTE | 2024-09-19 11:26 | EKG ---
Test Date: 2024-09-13 Test Time: 17:50:09 Pork Cutlet Maker: CHANTAL Chris MEASUREMENT RESULTS: Intervals: Rate: 73 [place]: QRSD: 92 QT: 408 QTc: 449 [place]: P: [place]: QRS: 71 T: 102 INTERPRETIVE STATEMENTS: Atrial fibrillation with premature ventricular or aberrantly conducted complexes Abnormal ECG Compared to ECG 12/28/2023 09:20:06 Ventricular premature complex(es) now present Sinus bradycardia no longer present Atrial premature complex(es) no longer present T-wave abnormality no longer present Prolonged QT interval no longer present Electronically Signed On 09-19-24 11:09:18 CDT by Billy Burns
--- NOTE | 2024-09-19 11:32 | P.CNS ---
Date of Consult: 09/19/24 Reason for Consult: EDELMIRA Requesting Physician: Sharath Bella Chief Complaint: heart failure History of Present Illness: Pt is a 69 yo AA female with a past medical history of chronic diastolic CHF, unspecified A-fib, asthma, chronic left leg wound, hypertension, gout who presented with weight gain with shortness of breath over several days preceding admission. Pt was admitted for CHF exacerbation, BP initially elevated but has trended lower. Pt also placed on Abx for polymicrobial growth from a Lt LE wound. Allergies insect venom Adverse Reaction (Verified 12/28/23 22:22) Anaphylaxis Home Medications: Bumetanide 1 mg PO DAILY 12/28/23 Gabapentin 600 mg PO TID 12/28/23 Sertraline [Zoloft*] 100 mg PO DAILY 12/28/23 Topiramate 2 tab PO BEDTIME 12/28/23 Amiodarone HCl [Cordarone*] 200 mg PO DAILY #30 tab 12/30/23 Atorvastatin Calcium [Lipitor*] 20 mg PO SEECOM #30 tab 12/30/23 Rivaroxaban [Xarelto] 20 mg PO DAILY #30 tab 12/30/23 Topiramate 50 mg PO BID #60 tab 12/30/23 hydrOXYzine HCL [Atarax] 50 mg PO TID PRN #30 tab 12/30/23 - Past Medical/Surgical History Diabetic: No -: Obstructive sleep apnea -: HTN -: CHFdiastolic -: Gout -: Venous insufficiency -: Tobacco abuse -: Morbid obesity -: Atrial flutter -: Anterior communicating artery aneurysm4 mm -: Focal moderate M1 stenosis -: Renal insufficiency followed by Dr. Herrera/Mary -: Skin graft -: x2 -: vein removal on R leg (2014) Psychosocial/ Personal History: Lives at home with family - Family History Mother Medical History: Diabetes Notes: Alzheimer's Father Medical History: Heart disease, Stroke Brother Medical History: Heart disease, Diabetes - Social History Smoking Status: Current every day smoker Alcohol use: No CD- Drugs: No Caffeine use: No Place of Residence: Home Review of Systems General: Unremarkable Eyes: Unremarkable ENT: Unremarkable Respiratory: Shortness of Breath Cardiovascular: As per HPI Gastrointestinal: Unremarkable Genitourinary: Unremarkable Musculoskeletal: Unremarkable Integumentary: As per HPI Neurological: Unremarkable Physical Examination Temp Pulse Resp BP Pulse Ox 98.5 F 50 16 106/56 L 93 09/19/24 08:00 09/19/24 09:15 09/19/24 08:00 09/19/24 09:15 09/19/24 08:00 General: Alert, In no apparent distress, Cooperative HEENT: Atraumatic, Normocephalic Neck: Supple Respiratory: Normal air movement, Other (Non tachypnec, no rhonchi) Cardiovascular: Other (Non tachy, cardiac murmur) Gastrointestinal: Soft and benign, Non-distended, No tenderness, No guarding Musculoskeletal: Other (Lt lower leg wrapped, some swelling) Integumentary: Other (lt lower rodriguez wound, see wound care pic/note for details) Neurological: Normal speech, Normal tone, Normal affect Conclusions/Impression: A/P) 1. Stage 1 EDELMIRA, recurrent with prior episodes, in the setting of the addition of Bactrim, relative BP lowering, diuresis, other. Cont to trend renal function tests closely, slow rate of diuresis 2. Monitor K levels closely, currently acceptable but at risk for hyperkalemia with combined use of Bactrim, ARB, MRA 3. Acute on chronic diastolic CHF, acute pulm edema, elevated BNP levels, peripheral edema. Cont Bumex, but will lower rate to 0.5 mg IV BID. 4. Hypertension with CKD and HF -BP has sig improved and soft at times, place holding parameter on the lower dose ARB. Target BP < 130/80 otherwise Flo Hernandez MD, CHANDLER
[2024-09-19] MEDS: BUMETANIDE 1 MG/4 ML VIAL IV SCH (17:37)
[2024-09-19] MEDS: DOCUSATE NA 100 MG CAP PO SCH (21:13)
[2024-09-20 06:10] LABS: Albumin 2.8 g/dL (3.4-5.0); Anion Gap 5.1 mEq/L (5.0-15.0); Magnesium 2.3 mg/dL (1.6-2.4); Phosphorus 5.2 mg/dL (2.5-4.9); Potassium 4.1 mEq/L (3.5-5.1)
[2024-09-20] MEDS: LOSARTAN POTASSIUM 50 MG TABLET PO SCH (09:26)
--- NOTE | 2024-09-20 11:40 | P.PN ---
Date of Service: 09/20/24 Subjective: feeling better responding well to bumex no acute events overnight afebrile renal fxn worse ROS: 10 point ROS as noted above, otherwise negative Physical Exam: GEN: Alert, oriented, NAD CV: Regular rate and rhythm, trace edema Pulm: Nonlabored respirations on room air, clear bilaterally Integumentary: Left medial ankle chronic wound. no purulent drainage, no surrounding erythema Neuro: Normal speech, normal affect Problem List: Acute on chronic respiratory failure with hypoxia secondary to acute on chronic diastolic CHF exacerbation NSTEMI type 2 Hypertensive urgency, resolved Chronic lower left extremity ulcer EDELMIRA Constipation Chronic atrial fibrillation, on chronic anticoagulation Gout Hypercholesterolemia Acute on chronic respiratory failure with hypoxia secondary to acute on chronic diastolic CHF exacerbation NSTEMI type 2 Hypertensive urgency, resolved on admission, presents with worsening shortness of breath x3 days. SOB worsened with exertion. +orthopnea. reports some degree on non-compliance with home meds. [place] her diuretics haven't been working as well recently. CXR (09/17): mild CHF. no infiltrate. Troponins mildly elevated but trended flat. Peak 253. likely secondary to demand ischemia from severe hypertension. Patient is hypoxic on room air with exertion. Wean oxygen as tolerated. continue oral spironolactone, losartan and Coreg. s/p heparin drip; switched to oral Xarelto 09/15. Cardiology is following Nephrology consulted bumex decreased 09/19, now dc'd given worsening renal function. 09/20 - dc'd bumex given worsening renal fxn Chronic lower left extremity ulcer Continue local wound care: Clean wound with acetic acid solution, apply dry gauze and wrap with Kerlix daily. Blood cx without growth since 09/17 Covid/Flu negative. Wound culture growing multiple organisms: Pseudomonas Aeruginosa, Serratia Marcascens, Proteus Mirabilis continue oral cipro (09/17- 09/20 - ddc bactrim - given worsening renal fxn, and no clear infection in chronic wound no further fevers/low grade temps EDELMIRA suspect multifactorial - in setting of relative hypotension, diuresis continue to monitor renal function Nephrology consulted Bumex dc'd 09/20 given worsening renal function. Constipation no BM since before admission colace, miralax Chronic atrial fibrillation, on chronic anticoagulation Continue home amiodarone and Xarelto. Gout Hypercholesterolemia confirm home meds, restart as appropriate VTE: home xarelto Code: Full Dispo: Home, ~24-48 hrs Time Spent Managing Pts Care (In Minutes): 55
--- NOTE | 2024-09-20 11:52 | P.PN ---
(S) Pt seen sitting up on the side of the bed, off O2, no acute CP or dyspnea, ambulating short distances, renal function tests and POC discussed in detail (O) Vitals reviewed in the EMR General: Alert, In no apparent distress, Cooperative HEENT: Atraumatic, Normocephalic Neck: Supple Respiratory: Normal air movement, Other (Non tachypnec, no rhonchi) Cardiovascular: Other (Non tachy, cardiac murmur) Gastrointestinal: Soft and benign, Non-distended, No tenderness, No guarding Musculoskeletal: Other (Lt lower leg un-wrapped, some swelling) Integumentary: Other (lt lower rodriguez wound, see wound care pic/note for details) Neurological: Normal speech, Normal tone, Normal affect Conclusions/Impression: A/P) 1. Stage 1 EDELMIRA, recurrent with prior episodes, in the setting of the addition of Bactrim, relative BP lowering, diuresis, other. 2. Cr level trending upwards, will pause diuretics and stop Bactrim. Will hold Losartan 3. Acute on chronic diastolic CHF, acute pulm edema, elevated BNP levels, peripheral edema. Has diuresed well, with the EDELMIRA and BP lowering, will temp pause diuretics to slow diuresis rate 4. Hypertension with CKD and HF -BP has sig improved and soft at times, placed holding parameter on the lower dose ARB and now will hold for 36h. Target BP < 130/80 otherwise 5. Lt lower leg soft tissue wound +/- infection, polymicrobial growth -discussed case with Dr. Oneal, cont Cipro, suspend Bactrim Flo Hernandez MD, CHNADLER
[2024-09-20] MEDS: GABAPENTIN 300 MG CAP PO SCH (20:38)
[2024-09-20] MEDS: POLYETHYL GLY 3350 17 GM/DOSE PO PRN (20:52)
[2024-09-21 06:29] LABS: Absolute Eosinophils 0.2 K/uL (0-0.5); Absolute Lymphocytes (CBC) 1.1 K/uL (0.7-4.9); Absolute Monocytes 0.9 K/uL (0.1-1.3); Absolute Neutrophil 2.1 K/uL (1.8-8.0); Basophils % 0.7 % (0-1.3); Eosinophils % 4.1 % (0-4.4); Hematocrit 36.5 % (36.0-45.0); Lymphocytes % 25.4 % (15.3-44.8); MCH 30.7 pg (27.0-35.0); MCHC 32.7 g/dL (32.0-36.0); MCV 93.6 fL (80-100); MPV 9.5 fL (7.6-11.3); Neutrophils % 48.8 % (41.7-73.7); Nucleated Red Blood Cells % 0.2 % (0-0); Platelets 184 thou/uL (152-406); Red Cell Distribution Width 14.3 % (12.1-15.2)
[2024-09-21 07:47] LABS: Anion Gap 5.9 mEq/L (5.0-15.0); Potassium 3.9 mEq/L (3.5-5.1)
[2024-09-21 08:37] LABS: Differential Total Cells Count 100; Lymphocytes 26 % (15-42); Monocytes 22 % (0-10); Segmented Neutrophils 47 % (40-80)
[2024-09-21 08:38] LABS: Blood Morphology Comment NOT SEEN (NOT SEEN); Eosinophils 5 % (0-3); Platelet Estimate ADEQ
--- NOTE | 2024-09-21 10:50 | P.PN ---
(S) Pt seen sitting up on the side of the bed, off O2, no acute CP or dyspnea, ambulating short distances, renal function tests and POC discussed in detail. Reports small BM this AM after laxatives. Discussed discharge planning (O) Vitals reviewed in the EMR General: Alert, In no apparent distress, Cooperative HEENT: Atraumatic, Normocephalic Neck: Supple Respiratory: Normal air movement, Other (Non tachypnec, no rhonchi) Cardiovascular: Other (Non tachy, cardiac murmur) Gastrointestinal: Soft and benign, Non-distended, No tenderness, No guarding Musculoskeletal: Other (Lt lower leg un-wrapped, some swelling) Integumentary: Other (lt lower rodriguez wound, see wound care pic/note for details) Neurological: Normal speech, Normal tone, Normal affect Conclusions/Impression: A/P) 1. Stage 1 EDELMIRA, recurrent with prior episodes, in the setting of the addition of Bactrim, relative BP lowering, diuresis, other. 2. Cr level has peaked and is lower this AM, did temp pause diuretics and stopped Bactrim. Also holding Losartan for 36h 3. Acute on chronic diastolic CHF, acute pulm edema, elevated BNP levels, peripheral edema. Has diuresed well, with the EDELMIRA and BP lowering, did temp pause diuretics to slow diuresis rate. Was taking Lasix 80 mg as OP, will switch to Bumex 1 mg BID on discharge. Cont MRA 4. Hypertension with CKD and HF -BP has sig improved and soft at times, placed holding parameter on the lower dose ARB and will resume on discharge (can replace the Benazepril/HCTZ she was taking at home). Target BP < 130/80 othe rwise 5. Lt lower leg soft tissue wound +/- infection, polymicrobial growth -discussed case with Dr. Oneal, cont Cipro, suspend Bactrim Flo Hernandez MD, FASN On discharge, would reconcile meds as currently ordered, will arrange f/u in clinic and labs via [facility].
--- NOTE | 2024-09-21 11:20 | P.PN ---
Subjective Date of Service: 09/21/24 Chief Complaint: heart failure Subjective: No new changes, No C/O voiced, Tolerating diet, Ambulating, Improving Review of Systems 10-point ROS is otherwise unremarkable Physical Examination - Vital Signs Temperature: 98 F Blood Pressure: 111/56 Pulse: 52 Respirations: 18 Pulse Ox (%): 93 - Physical Exam General: Alert, In no apparent distress HEENT: Atraumatic, PERRLA, EOMI Neck: Supple, JVD not distended Respiratory: Clear to auscultation bilaterally, Normal air movement Cardiovascular: Regular rate/rhythm, Normal S1 S2 Gastrointestinal: Normal bowel sounds, No tenderness Musculoskeletal: No tenderness Integumentary: No rashes Neurological: Normal speech, Normal tone, Normal affect Lymphatics: No axilla or inguinal lymphadenopathy - Studies Medications List Reviewed: Yes Assessment And Plan - Current Problems (Diagnosis) (1) Acute on chronic diastolic heart failure Current Visit: Yes Status: Acute Plan: patient mention that she has not been complaint with her medications would recommend to discharge on Bumex 1 mg daily Coreg 3.125 mg po BID Losartan 25 mg daily (patient unable to offer entresto) Aldactone 25 mg daily continue to monitor input and output and electrolytes. (2) Atrial fibrillation Current Visit: No Status: Chronic Plan: currently in sinus rhythm continue Amiodarone 200 mg daily Continue Xarelto 20 mg daily Cardiology will sign off, please call with any questions Qualifiers: Atrial fibrillation type: longstanding persistent Qualified Code(s): I48.11 - Longstanding persistent atrial fibrillation
--- NOTE | 2024-09-21 11:52 | P.PN ---
Date of Service: 09/21/24 Subjective: continues with daily improvement feeling constipated, no BM yet no acute events overnight afebrile ROS: 10 point ROS as noted above, otherwise negative Physical Exam: GEN: Alert, oriented, NAD CV: Regular rate and rhythm, trace edema Pulm: Nonlabored respirations on room air, clear bilaterally Integumentary: Left medial ankle chronic wound. no purulent drainage, no surrounding erythema Neuro: Normal speech, normal affect Problem List: Acute on chronic respiratory failure with hypoxia secondary to acute on chronic diastolic CHF exacerbation NSTEMI type 2 Hypertensive urgency, resolved Chronic lower left extremity ulcer EDELMIRA Constipation Chronic atrial fibrillation, on chronic anticoagulation Gout Hypercholesterolemia Acute on chronic respiratory failure with hypoxia secondary to acute on chronic diastolic CHF exacerbation NSTEMI type 2 Hypertensive urgency, resolved on admission, presents with worsening shortness of breath x3 days. SOB worsened with exertion. +orthopnea. reports some degree on non-compliance with home meds. [place] her diuretics haven't been working as well recently. CXR (09/17): mild CHF. no infiltrate. Troponins mildly elevated but trended flat. Peak 253. likely secondary to demand ischemia from severe hypertension. Wean oxygen as tolerated. Has home oxygen that she uses PRN. continue oral spironolactone, losartan and Coreg. s/p heparin drip; switched to oral Xarelto 09/15. Cardiology is following Nephrology consulted 09/18 Bumex Decreased to 1 mg BID 09/19 Bumex decreased to 0.5 mg BID 09/19 09/20 Bumex dc'd given worsening renal fxn losartan on hold per nephro for 36hrs 09/21 Creatinine improving. plan to resume oral bumex 1mg BID tomorrow Chronic lower left extremity ulcer Continue local wound care: Clean wound with acetic acid solution, apply dry gauze and wrap with Kerlix daily. Blood cx without growth since 09/17 Covid/Flu negative. Wound culture growing multiple organisms: Pseudomonas Aeruginosa, Serratia Mar cascens, Proteus Mirabilis continue oral cipro (09/17-) 09/20 - dc bactrim - given worsening renal fxn, and no clear infection in chronic wound no further fevers/low grade temps EDELMIRA suspect multifactorial - in setting of relative hypotension, diuresis continue to monitor renal function Nephrology consulted 09/20 Bumex dc'd given worsening renal fxn 09/21 Creatinine improving. Resume oral bumex 1mg BID tomorrow Constipation no BM since before admission colace, miralax Chronic atrial fibrillation, on chronic anticoagulation Continue home amiodarone and Xarelto. Gout Hypercholesterolemia confirm home meds, restart as appropriate VTE: home xarelto Code: Full Dispo: Home, ~24-48 hrs Time Spent Managing Pts Care (In Minutes): 55
[2024-09-22 06:26] LABS: Anion Gap 6.6 mEq/L (5.0-15.0); Potassium 3.6 mEq/L (3.5-5.1)
[2024-09-22] MEDS: COLLAGENASE 30 GM OINTMENT TOP SCH (09:00)
[2024-09-22] MEDS: BUMETANIDE 1 MG TABLET PO SCH (09:16)
--- NOTE | 2024-09-22 11:12 | P.PN ---
(S) Pt seen sitting up on the side of the bed, on/off O2, has had some nose bleeds this AM, complains of sinus HINOJOSA, no acute CP or dyspnea, ambulating short distances, renal function tests and POC discussed in detail. Discussed discharge planning (O) Vitals reviewed in the EMR General: Alert, In no apparent distress, Cooperative HEENT: Atraumatic, Normocephalic Neck: Supple Respiratory: Normal air movement, Other (Non tachypnec, no rhonchi or rales) Cardiovascular: Other (Non tachy, cardiac murmur) Gastrointestinal: Soft and benign, Non-distended, No tenderness, No guarding Musculoskeletal: Other (Lt lower leg un-wrapped, some swelling) Integumentary: Other (lt lower rodriguez wound, see wound care pic/note for details) Neurological: Normal speech, Normal tone, Normal affect Conclusions/Impression: A/P) 1. Stage 1 EDELMIRA, recurrent with prior episodes, in the setting of the addition of Bactrim, relative BP lowering, diuresis, other. 2. Cr level has peaked and slowly trending downwards, did temp pause diuretics and stopped Bactrim. 3. Acute on chronic diastolic CHF, acute pulm edema, elevated BNP levels, peripheral edema. Has diuresed well, with the EDELMIRA and BP lowering, did temp pause diuretics to slow diuresis rate. Was taking Lasix 80 mg as OP, will switch to Bumex 1 mg BID on discharge. Cont MRA 4. Hypertension with CKD and HF -BP has sig improved and soft at times, placed holding parameter on the lower dose ARB and will resume on discharge (can replace the Benazepril/HCTZ she was taking at home). Target BP < 130/80 otherwise 5. Lt lower leg soft tissue wound +/- infection, polymicrobial growth -discussed case with Dr. Oneal, cont Cipro, suspend Bactrim Flo Hernandez MD, FASN On discharge, would reconcile meds as currently ordered, will arrange f/u in clinic and labs via [facility].
[2024-09-22 16:11] VITALS: O2SAT 99; BMI 40.9
[2024-09-22 18:55] VITALS: BP 166/85; TEMP 97.8
--- NOTE | 2024-09-23 06:41 | P.DS ---
Admission Date: 09/13/24 Discharge Date: 09/22/24 Disposition: DC HOME/HOME HEALTH CARE Discharge Condition: GOOD Reason for Admission: heart failure Consultations: Cardiology - Dr. Burns Nephrology - Dr. Mary Luciano Brief History of Present Illness: 69yo F, PMH: CHF, A-fib, asthma, left leg wound, hypertension, gout Patient presenting with shortness of breath for the last 3 days. She states she has been cleaning her garage which is full of dust, mold, mildew. Associated symptoms include insomnia and chest fullness. She believes there is an issue with the tubing of her oxygen. She states she does not wear oxygen at home. She has a home health nurse that comes and helps dress her wounds. She smokes 1/4 pack/day of cigarettes for the last 30 years. In the emergency room blood pressure was elevated 188/120. 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 Hospital Course: Problem List: Acute on chronic respiratory failure with hypoxia secondary to acute on chronic diastolic CHF exacerbation NSTEMI type 2 Hypertensive urgency, resolved Chronic lower left extremity ulcer EDELMIRA Constipation Chronic atrial fibrillation, on chronic anticoagulation Gout Hypercholesterolemia Physician discharge instructions: Patient presented with worsening shortness of breath x3 days, secondary to acute on chronic diastolic CHF exacerbation. Chest xray on admission with mild CHF pattern, no infiltrates. Echocardiogram this hospitalization with 50-55%EF, normal wall motion, grade 2 diastolic dysfunction, elevated filling pressure, moderate LVH. Troponins were mildly elevated but trended flat (Peak 253). Secondary to demand ischemia from severe hypertension. Patient was started on a heparin drip and given IV bumex and had improvement of her symptoms. Heparin drip was transitioned to oral xarelto on 09/15, which patient takes at home. Cardiology was consulted and recommended starting patient on losartan, marya nolactone, and coreg to help better control her hypertension/CHF. She was noted to have a mild EDELMIRA on admission which slowly uptrended as patient was being diuresed with bumex. Suspect multifactorial etiology of EDELMIRA secondary to diuresis in the setting of relative hypotension and bactrim. Nephrology was consulted. Bumex was slowly decreased as renal function worsened, briefly paused for 1 day before restarting. Advised patient to continue oral bumex 1 mg BID on discharge. Repeat blood work in 1 week to monitor renal function. Creatinine on discharge: 1.7 Check weight around the same time each day. Keep daily log of weight readings to follow up appointments. Early during hospitalization she was noted to have some intermittent borderline temperatures of 99s and 100.0. She was startd on oral ciprofloxacin and bactrim based on superficial wound swab cultures of her chronic wound. Blood cultures were without growth. Covid/Flu screen were negative. Culture (/) grew multiple organisms: Pseudomonas Aeruginosa, Serratia Marcascens, Proteus Mirabilis. There was no evidence of infectious process involving the wound. she remained afebrile and without leukocytosis. Patient reported wound was no different than it has been chronically. Given the slight worsening of renal function and within timeframe of starting bactrim -> bactrim was discontinued. She will continue with 7 more days of ciprofloxacin Patient has remained afebrile without leukocytosis for several days. Local wound care while hospitalized: Clean wound with acetic acid solution, apply dry gauze and wrap with Kerlix daily. continue home health, recommend follow up in wound clinic. Medications: Bumex 1 mg BID Spironolactone 25 mg daily Cipro 500 mg BID Losartan 25 mg daily coreg 3.125 mg BID For now: stop Benazepril/HCTZ stop Hydralazine continue home amiodarone and xarelto Follow up: PCP 3-5 days Cardiology 2-4 weeks Nephrology 2-4 weeks Please call to schedule / confirm appointments Physical Exam: GEN: Alert, oriented, NAD CV: Regular rate and rhythm, trace edema Pulm: Nonlabored respirations on room air, clear bilaterally Integumentary: Left medial ankle chronic wound. no purulent drainage, no surrounding erythema Neuro: Normal speech, normal affect Vital Signs/Physical Exam: Temp Pulse Resp BP Pulse Ox 97.8 F 50 18 166/85 H 50 L 09/22/24 16:00 09/22/24 16:00 09/22/24 16:00 09/22/24 16:00 09/22/24 16:00 Laboratory Data at Discharge: WBC 4.30 thou/uL (4.3-10.9) 09/21/24 06:04 Hgb 12.0 g/dL (12.0-15.0) 09/21/24 06:04 Hct 36.5 % (36.0-45.0) 09/21/24 06:04 Plt Count 184 thou/uL (152-406) 09/21/24 06:04 APTT 52.4 SECONDS (24.3-36.9) H 09/15/24 15:54 Sodium 137 mEq/L (136-145) 09/22/24 05:43 Potassium 3.6 mEq/L (3.5-5.1) 09/22/24 05:43 BUN 39 mg/dL (7-18) H 09/22/24 05:43 Creatinine 1.70 mg/dL (0.55-1.02) H 09/22/24 05:43 Glucose 90 mg/dL (74-106) 09/22/24 05:43 Phosphorus 5.2 mg/dL (2.5-4.9) H 09/20/24 05:38 Magnesium 2.3 mg/dL (1.6-2.4) 09/20/24 05:38 Total Bilirubin 0.5 mg/dL (0.2-1.0) 09/13/24 18:07 AST 18 U/L (15-37) 09/13/24 18:07 ALT 19 U/L (13-56) 09/13/24 18:07 Alkaline Phosphatase 77 U/L (45-117) 09/13/24 18:07 Triglycerides 65 mg/dL (<150) 09/14/24 01:30 Cholesterol 191 mg/dL (<200) 09/14/24 01:30 HDL Cholesterol 53 mg/dL (40-60) 09/14/24 01:30 Cholesterol/HDL Ratio 3.60 09/14/24 01:30 Home Medications: Topiramate 50 mg PO BID #60 tab 12/30/23 hydrOXYzine HCL [Atarax] 50 mg PO TID PRN #30 tab 12/30/23 Sertraline [Zoloft*] 50 mg PO DAILY 09/20/24 Bumetanide [Bumex*] 1 mg PO BIDL 30 Days #60 tab 09/22/24 Ciprofloxacin HCl 500 mg PO BID 7 Days #14 tab 09/22/24 Losartan Potassium 25 mg PO DAILY 30 Days #30 tab 09/22/24 Spironolactone [Aldactone*] 25 mg PO DAILY 30 Days #30 tab 09/22/24 carvediloL [Coreg*] 3.125 mg PO BID 6AM 6PM 30 Days #60 tab 09/22/24 New Medications: Spironolactone [Aldactone*] 25 mg PO DAILY 30 Days #30 tab Bumetanide [Bumex*] 1 mg PO BIDL 30 Days #60 tab Ciprofloxacin HCl 500 mg PO BID 7 Days #14 tab carvediloL [Coreg*] 3.125 mg PO BID 6AM 6PM 30 Days #60 tab Losartan Potassium 25 mg PO DAILY 30 Days #30 tab Physician Discharge Instructions: Physician discharge instructions: Patient presented with worsening shortness of breath x3 days, secondary to acute on chronic diastolic CHF exacerbation. Chest xray on admission with mild CHF pattern, no infiltrates. Echocardiogram th is hospitalization with 50-55%EF, normal wall motion, grade 2 diastolic dysfunction, elevated filling pressure, moderate LVH. Troponins were mildly elevated but trended flat (Peak 253). Secondary to demand ischemia from severe hypertension. Patient was started on a heparin drip and given IV bumex and had improvement of her symptoms. Heparin drip was transitioned to oral xarelto on 09/15, which lynn ent takes at home. Cardiology was consulted and recommended starting patient on losartan, spironolactone, and coreg to help better control her hypertension/CHF. She was noted to have a mild EDELMIRA on admission which slowly uptrended as patient was being diuresed with bumex. Suspect multifactorial etiology of EDELMIRA secondary to diuresis in the setting of relative hypotension and bactrim. Nephrology was consulted. Bumex was slowly decreased as renal function worsened, briefly paused for 1 day before restarting. Advised patient to continue oral bumex 1 mg BID on discharge. Repeat blood work in 1 week to monitor renal function. Creatinine on discharge: 1.7 Check weight around the same time each day. Keep daily log of weight readings to follow up appointments. Early during hospitalization she was noted to have some intermittent borderline temperatures of 99s and 100.0. She was startd on oral ciprofloxacin and bactrim based on superficial wound swab cultures of her chronic wound. Blood cultures were without growth. Covid/Flu screen were negative. Culture (09/14) grew multiple organisms: Pseudomonas Aeruginosa, Serratia Marcascens, Proteus Mirabilis. There was no evidence of infectious process involving the wound. she remained afebrile and without leukocytosis. Patient reported wound was no different than it has been chronically. Given the slight worsening of renal function and within timeframe of starting bactrim -> bactrim was discontinued. She will continue with 7 more days of ciprofloxacin Patient has remained afebrile without leukocytosis for several days. Local wound care while hospitalized: Clean wound with acetic acid solution, apply dry gauze and wrap with Kerlix daily. continue home health, recommend follow up in wound clinic. Medications: Bumex 1 mg BID Spironolactone 25 mg daily Cipro 500 mg BID Losartan 25 mg daily coreg 3.125 mg BID For now: stop Benazepril/HCTZ stop Hydralazine continue home amiodarone and xarelto Follow up: PCP 3-5 days Cardiology 2-4 weeks Nephrology 2-4 weeks Please call to schedule / confirm appointments Followup: Latoya Davenport FNP [Primary Care Provider] - Time spent managing pt's care (in minutes): 45
== END 2024-09-22 19:00 | disposition home health service (06) | DRG 280 ==
LOC: ER 17:21 → 4TH 22:33
PROVIDERS: ADMIT Family Medicine; ATTEND Hospitalist
DX: I11.0 Hypertensive heart disease with heart failure (principal); I50.33 Acute on chronic diastolic (congestive) heart failure; I21.A1 Myocardial infarction type 2; J96.21 Acute and chronic respiratory failure with hypoxia; Z68.41 Body mass index [BMI] 40.0-44.9, adult; I48.11 Longstanding persistent atrial fibrillation; L97.929 Non-pressure chronic ulcer of unspecified part of left lower leg with unspecified severity; N17.9 Acute kidney failure, unspecified; E66.01 Morbid (severe) obesity due to excess calories; I16.0 Hypertensive urgency; G47.00 Insomnia, unspecified; K59.00 Constipation, unspecified; E78.00 Pure hypercholesterolemia, unspecified; F17.210 Nicotine dependence, cigarettes, uncomplicated; Z11.52 Encounter for screening for COVID-19; Z79.01 Long term (current) use of anticoagulants; Z79.899 Other long term (current) drug therapy; B96.5 Pseudomonas (aeruginosa) (mallei) (pseudomallei) as the cause of diseases classified elsewhere; B96.4 Proteus (mirabilis) (morganii) as the cause of diseases classified elsewhere; B96.89 Other specified bacterial agents as the cause of diseases classified elsewhere
CPT/HCPCS: 36415; 71045; 80048; 80061; 80069; 80076; 82947; 83735; 83880; 84484; 85025; 85730; 87040; 87070; 87077; 87186; 87205; 87428; 93005; 93306; 94640; 94760; 96374; 99284; J0360; J1644; J1940; J3590; J7613; J7644

== ENCOUNTER 2025-02-20 14:11 | Inpatient (IN) | payer OTHER, BC ==
[2025-02-20] MEDS ORDERED: ALBUTEROL 2.5 MG/3 ML NEB SOL ONE (16:16)
[2025-02-20] MEDS ORDERED: IPRATROPIUM BROM 0.5MG/2.5ML ONE (16:16)
[2025-02-20] MEDS ORDERED: METHYLPREDNISOLONE 125 MG INJ ONE (16:16)
[2025-02-20 16:20] LABS: Absolute Lymphocytes (CBC) 1.2 K/uL (0.7-4.9); Hematocrit 33.9 % (36.0-45.0); Hemoglobin 11.0 g/dL (12.0-15.0); MCH 29.7 pg (27.0-35.0); MCHC 32.4 g/dL (32.0-36.0); MCV 91.7 fL (80-100); MPV 9.1 fL (7.6-11.3); Nucleated RBC Absolute Count 0.0 (0-0); Nucleated Red Blood Cells % 0.7 % (0-0); RBC Red Blood Cell Count 3.70 M/uL (3.86-4.86); White Blood Count 6.00 thou/uL (4.3-10.9)
[2025-02-20 16:40] LABS: ALT/SGPT 23.0 U/L (13-56); AST/SGOT 32.0 U/L (15-37); Albumin 3.2 g/dL (3.4-5.0); Albumin/Globulin Ratio 0.7 (1.1-1.8); Alkaline Phosphatase 85.0 U/L (45-117); Anion Gap 9.2 mEq/L (5.0-15.0); BUN Blood Urea Nitrogen 25.0 mg/dL (7-18); Globulin 4.7 g/dL (2.3-3.5); Glucose Level 85.0 mg/dL (74-106); Influenza A Ag Negative; Influenza B Ag Negative; NT PRO-BNP 10403.0 pg/mL (<125); Potassium 4.2 mEq/L (3.5-5.1); SARS-CoV-2 Antigen Rapid Res Negative (Negative)
[2025-02-20 16:43] LABS: Troponin High Sensitivity 747.9 pg/mL (<58.9)
[2025-02-20] MEDS ORDERED: FUROSEMIDE 40 MG/4 ML VIAL ONE (16:52)
[2025-02-20] MEDS ORDERED: ASPIRIN 81 MG CHEWABLE TABLET ONE (16:52)
[2025-02-20] MEDS ORDERED: AZITHROMYCIN 500 MG INJ IVPB ONE (16:58)
[2025-02-20] MEDS ORDERED: NA CHLORIDE 0.9% 250 ML ONE (16:58)
--- NOTE | 2025-02-20 17:09 | ER ---
Nurse's Notes [facility] Name: Mellisa Patterson Age: 70 yrs Sex: Female : 1955 Arrival Date: 02/20/2025 Time: 14:11 Bed 25 Private MD: Diagnosis: COPD/ Chronic obstructive pulmonary disease, unspecified;Acute on chronic combined systolic (congestive) and diastolic (congestive) heart failure;Other specified abnormal findings of blood chemistry-Elevated Troponin Presentation: 02/20 14:43 Chief complaint: Patient states: SOB for a couple weeks , + cough , hx of COPD. iw Coronavirus screen: Client presents with at least one sign or symptom that may indicate coronavirus-19. Ebola Screen: No symptoms or risks identified at this time. Initial Sepsis Screen: Does the patient meet any 2 criteria? No. Patient's initial sepsis screen is negative. Does the patient have a suspected source of infection? No. Patient's initial sepsis screen is negative. Risk Assessment: Do you want to hurt yourself or someone else? Patient reports no desire to harm self or others. 14:43 Method Of Arrival: Wheelchair iw 14:43 Acuity: JESI 3 iw Historical: - Allergies: 14:44 insect venom; iw - PMHx: 14:44 Bronchitis; Atrial Fib; Asthma; CKD; stage 5; CHF; Gout; Hypertension; venous iw insufficiency; wounds; - PSHx: 14:44 section; iw Screenin:50 [facility] ED Fall Risk Assessment (Adult) History of falling in the last 3 months, jb4 including since admission No falls in past 3 months (0 pts) Confusion or Disorientation No (0 pts) Intoxicated or Sedated No (0 pts) Impaired Gait Yes (1 pt) Mobility Assist Device Used No (0 pt) Altered Elimination Yes (1 pt) Score/Fall Risk Level 0 - 2 = Low Risk Oriented to surroundings, Maintained a safe environment. Abuse screen: Denies threats or abuse. Nutritional screening: No deficits noted. Tuberculosis screening: No symptoms or risk factors identified. Assessment: 14:50 Reassessment: pt placed on 2 L NC. iw 15:38 Reassessment: Patient and/or family updated on plan of care and expected duration. Pain ll1 level reassessed. 15:45 General: Appears in no apparent distress. comfortable, Behavior is calm, cooperative, jb4 appropriate for age. Pain: Complains of pain in left calf Pain does not radiate. Neuro: Level of Consciousness is awake, alert, obeys commands, Oriented to person, place, time, situation. Cardiovascular: Patient's skin is warm and dry. Respiratory: Airway is patent Respiratory effort is even, unlabored, Respiratory pattern is regular, symmetrical. GI: Abdomen is obese. Derm: Skin is dry, Skin is normal, Skin temperature is warm wound to left lower extremity. Musculoskeletal: Circulation, motion, and sensation intact. Range of motion: intact in all extremities. 15:45 Cardiovascular: Rhythm is irregular. jb4 17:47 Reassessment: Patient appears in no apparent distress at this time. Patient and/or jb4 family updated on plan of care and expected duration. Pain level reassessed. Patient is alert, oriented x 3, equal unlabored respirations, skin warm/dry/pink. 19:00 Reassessment: Patient appears in no apparent distress at this time. Patient and/or jb4 family updated on plan of care and expected duration. Pain level reassessed. Patient is alert, oriented x 3, equal unlabored respirations, skin warm/dry/pink. 19:50 Reassessment: Patient appears in no apparent distress at this time. Patient and/or jb4 family updated on plan of care and expected duration. Pain level reassessed. Patient is alert, oriented x 3, equal unlabored respirations, skin warm/dry/pink. Pt taken upstairs on 2L NC. Vital Signs: 14:43 BP 171 / 121; Pulse 101; Resp 20; Temp 98.1; Pulse Ox 82% on R/A; iw 17:06 BP 176 / 116; Pulse 101; Resp 25; Pulse Ox 100% on Nebulizer Mask; jb4 17:30 BP 169 / 121; Pulse 107; Resp 20; Pulse Ox 95% on 2 lpm NC; jb4 19:08 BP 162 / 106; Pulse 82; Resp 20; Pulse Ox 92% on 2 lpm NC; jb4 ED Course: 14:18 Patient arrived in ED. im 14:24 Vidal Hatch FNP-C is PHCP. dr5 14:24 Nettie Garza MD is Attending Physician. dr5 14:44 Triage completed. iw 15:30 XRAY Chest (1 view) In Process Unspecified. EDMS 15:38 Arm band placed on Patient placed in an exam room, on a stretcher. ll1 16:07 Troponin HS Sent. jb4 16:07 CBC with Diff Sent. jb4 16:08 NT PRO-BNP Sent. jb4 16:08 Blood Culture Adult (2) Sent. jb4 16:08 Lactate w/ 2H reflex if indic. Sent. jb4 16:43 Notified Nurse Practitioner and/or Physician [employer]ting [employer] Operator of a critical lab result(s), ll1 troponin 747.1. 17:08 Sharath Bella MD is Hospitalizing Provider. dr5 19:50 Patient has correct armband on for positive identification. Bed in low position. Call jb4 light in reach. Side rails up X 1. Provided Education on: need for admit. 19:50 No provider procedures requiring assistance completed. Patient admitted, IV remains in jb4 place. Administered Medications: 16:37 Drug: DuoNeb Nebulize (3:1) (2.5 mg - 0.5 mg) 3 ml Nebulizer once Route: Nebulizer; jb4 17:00 Follow up: Response: No adverse reaction; Marked relief of symptoms jb4 16:37 Drug: MethylPrednisoLONE IVP 125 mg IVP once Route: IVP; Site: left antecubital; jb4 17:00 Follow up: Response: No adverse reaction; Marked relief of symptoms jb4 17:05 Drug: Furosemide IVP 40 mg IVP once; give over 2 minutes Route: IVP; Site: left jb4 antecubital; 19:00 Follow up: Response: No adverse reaction; Marked relief of symptoms jb4 17:05 Drug: Aspirin PO Chewable Tablet 324 mg PO once; 81 mg tablets x 4 Route: PO; jb4 18:00 Follow up: Response: No adverse reaction jb4 17:12 Drug: AZITHromycin IVPB 500 mg IVPB once over 1 hrs; (mix in 250 mL NS) Route: IVPB; jb4 Infused Over: 1 hrs; Site: left antecubital; 18:12 Follow up: IV Status: Completed infusion; IV Intake: 250ml jb4 Medication: 19:50 VIS not applicable for this client. jb4 Intake: 18:12 IV: 250ml; Total: 250ml. jb4 Outcome: 17:09 Decision to Hospitalize by Provider. dr5 19:50 Admitted to Med/surg accompanied by nurse, via stretcher, room 230, with oxygen, with jb4 chart, 19:50 Condition: stable 19:50 Discharge instructions given to patient, Instructed on the need for admit, Demonstrated understanding of instructions, 19:55 Admitted to Med/surg accompanied by tech, via stretcher, room 230, with chart, ha1 19:55 Condition: stable 19:55 Instructed on the need for admit, Demonstrated understanding of instructions, 19:56 Patient left the ED. ha1 Signatures: Dispatcher [employer] EDMS Karen Maciel, Jose Maciel RN RN JOSE LUIS jb4 Justus Melton RN RN 1 Kimberlyn Thomas RN RN ha1 Magdalena Ybarra Dustin, CORRECTIONS CADET-C CORRECTIONS CADET-Cdr5 Corrections: (The following items were deleted from the chart) 16:17 16:08 COMPREHENSIVE METABOLIC PANEL+C.LAB.BRZ drawn and sent. [address]
--- NOTE | 2025-02-20 17:09 | EDPHYS ---
Physician Documentation [facility] Name: Mellisa Patterson Age: 70 yrs Sex: Female : 1955 Arrival Date: 02/20/2025 Time: 14:11 Bed 25 Private MD: ED Physician Nettie Garza HPI: 02/20 14:44 This 70 yrs old Black Female presents to ER via Unassigned with complaints of Shortness dr5 Of Breath, Vomiting. 14:44 The patient has shortness of breath at rest. Onset: The symptoms/episode began/occurred dr5 2 week(s) ago. Patient is a 70-year-old female with history of hypertension, hyperlipidemia, congestive heart failure, morbid obesity, COPD coming in with 2 weeks of cough, sneezing. Patient reports that her cough has gotten worse and feels like it is getting harder to breathe. Patient states that yesterday she had 1 episode of vomiting. Patient denies chest pain, abdominal pain, nausea, vomiting, diarrhea.. Historical: - Allergies: 14:44 insect venom; iw - PMHx: 14:44 Bronchitis; Atrial Fib; Asthma; CKD; stage 5; CHF; Gout; Hypertension; venous iw insufficiency; wounds; - PSHx: 14:44 section; iw ROS: 14:44 Constitutional: as per hpi dr5 Exam: 14:44 Constitutional: This is a well developed, well nourished patient who is awake, alert, dr5 and in no acute distress. Head/Face: Normocephalic, atraumatic. ENT: Nares patent. No nasal discharge, no septal abnormalities noted. Tympanic membranes are normal and external auditory canals are clear. Oropharynx with no redness, swelling, or masses, exudates, or evidence of obstruction, uvula midline. Mucous membranes moist. Neck: Trachea midline, no thyromegaly or masses palpated, and no cervical lymphadenopathy. Supple, full range of motion without nuchal rigidity, or vertebral point tenderness. No Meningismus. Chest/axilla: Normal chest wall appearance and motion. Nontender with no deformity. No lesions are appreciated. Cardiovascular: Tachycardic rate and rhythm with a normal S1 and S2. Normal PMI, no JVD. 3+ pitting edema noted to bilateral lower extremities. Respiratory: Lungs have equal breath sounds bilaterally with expiratory wheezing noted diffusely. No increased work of breathing, no retractions or nasal flaring. Abdomen/GI: Soft, non-tender, non-distended Skin: Warm, dry with normal turgor. Normal color with no rashes, no lesions, and no evidence of cellulitis. MS/ Extremity: Pulses equal, no cyanosis. Neurovascular intact. Full, normal range of motion. Neuro: Awake and alert, GCS 15, oriented to person, place, time, and situation. Cranial nerves II-XII grossly intact. Motor strength 5/5 in all extremities. Sensory grossly intact. Cerebellar exam normal. Normal gait. Vital Signs: 14:43 BP 171 / 121; Pulse 101; Resp 20; Temp 98.1; Pulse Ox 82% on R/A; iw 17:06 BP 176 / 116; Pulse 101; Resp 25; Pulse Ox 100% on Nebulizer Mask; jb4 17:30 BP 169 / 121; Pulse 107; Resp 20; Pulse Ox 95% on 2 lpm NC; jb4 19:08 BP 162 / 106; Pulse 82; Resp 20; Pulse Ox 92% on 2 lpm NC; jb4 MDM: 14:24 Medical Screening Exam initiated dr5 14:47 ED course: Patient has history of COPD, congestive heart failure. Will start septic dr5 workup as well as cardiac workup to rule out congestive heart failure exacerbation, COPD exacerbation, and any other etiologies that are concerning for admission. Patient denies currently being on oxygen at home.. 17:10 Differential diagnosis: asthma, Bronchitis CHF exacerbation, Chronic Obstructive dr5 Pulmonary Disease Myocardial Infarction Sepsis Unstable Angina. Antibiotic administration: Zithromax is given. Data reviewed: vital signs, nurses notes, old medical records, Reviewed all troponin which was also elevated and prior hospitalizations lab test result(s), cardiac enzymes, troponin i, CBC, white blood cell count, hemoglobin, hematocrit, platelets, electrolytes, sodium, potassium, chloride, serum bicarbonate, BUN, creatinine, serum glucose. Consideration of Admission/Observation Patient was admitted/placed on observation. Management of patient was discussed with the following: Hospitalist: fabrice. I considered the following discharge prescriptions or medication management in the emergency department I discussed and recommended Over The Counter medications, Medications were administered in the Emergency Department. See MAR. Care significantly affected by the following chronic conditions: Asthma, CKD, CHF, hypertension, venous insufficiency, A-fib. Care significantly affected by the following Social Determinants of Health: Poor access to healthcare and/or lack of insurance, Poor access to transportation, Problems related to employment. Scoring Tools HEART Score: History: ECG: Age: Risk Factors: Troponin: Total Score = 3. Counseling: I had a detailed discussion with the patient and/or guardian regarding the historical points, exam findings, and any diagnostic results supporting the discharge/admit diagnosis, the presence of at least one elevated blood pressure reading (>120/80) during this emergency department visit, lab results, radiology results, the need for further work-up and treatment in the hospital. Medication response: albuterol nebulizer treatment(s) markedly relieved the patient's wheezing, Solu-Medrol. Response to treatment: the patient's symptoms have markedly improved after treatment. Special discussion: Based on the patient's history, exam, and Dx evaluation, there is no indication for emergent intervention or inpatient Tx. It is understood by the patient/guardian that if the Sx's persist or worsen they need to return immediately for re-evaluation. Based on the patient's Hx, exam, and Dx evaluation, there is no indication for emergent surgery or inpatient Tx. It is understood by the patient/guardian that if the Sx's persist or worsen they need to return immediately for re-evaluation. ED course: Patient found to have elevated troponin which is likely secondary to elevated BNP. Will start diuresis and give aspirin. Will give azithromycin for COPD exacerbation. Will admit to hospitalist.. 02/20 14:34 Order name: CBC with Diff; Complete Time: 16:45 [facility] 02/20 14:34 Order name: NT PRO-BNP; Complete Time: 16:45 [facility] 02/20 14:34 Order name: Troponin HS; Complete Time: 16:45 [facility] 02/20 14:34 Order name: COVID-19 Ag + Flu A+B Ag; Complete Time: 16:45 [facility] 02/20 14:43 Order name: Blood Culture Adult (2) [facility] 02/20 14:43 Order name: Lactate w/ 2H reflex if indic.; Complete Time: 16:45 [facility] 02/20 16:18 Order name: Comprehensive Metabolic Panel; Complete Time: 16:45 [facility] 02/20 17:28 Order name: Magnesium [facility] 02/20 17:28 Order name: Phosphorus [facility] 02/20 17:28 Order name: T4 Free [facility] 02/20 17:28 Order name: Thyroid Stimulating Hormone [facility] 02/20 17:28 Order name: Basic Metabolic Panel [facility] 02/20 17:28 Order name: Basic Metabolic Panel [facility] 02/20 17:28 Order name: CBC with Automated Diff [facility] 02/20 17:28 Order name: CBC with Automated Diff [facility] 02/20 17:28 Order name: NT PRO-BNP [facility] 02/20 17:28 Order name: NT PRO-BNP [facility] 02/20 17:49 Order name: Troponin High Sensitivity [facility] 02/20 17:49 Order name: Troponin High Sensitivity [facility] 02/20 17:49 Order name: Troponin High Sensitivity [facility] 02/20 14:34 Order name: XRAY Chest (1 view); Complete Time: 17:40 dr5 02/20 17:28 Order name: CONS Physician Consult [facility] 02/20 14:34 Order name: Cardiac monitoring; Complete Time: 16:28 dr5 02/20 14:34 Order name: EKG - Nurse/Tech; Complete Time: 16:28 dr5 02/20 14:34 Order name: IV Saline Lock; Complete Time: 16: dr5 02/20 14:34 Order name: Labs collected and sent; Complete Time: 16: dr5 02/20 14:34 Order name: O2 Per Protocol; Complete Time: 16: dr5 02/20 14:34 Order name: O2 Sat Monitoring; Complete Time: 16:07 dr5 EC:19 Rate is 102 beats/min. Rhythm is regular. QRS [place] is Normal. QRS interval is normal at dr5 104 msec. QT interval is normal at 368 msec. Administered Medications: 16:37 Drug: DuoNeb Nebulize (3:1) (2.5 mg - 0.5 mg) 3 ml Nebulizer once Route: Nebulizer; jb4 17:00 Follow up: Response: No adverse reaction; Marked relief of symptoms jb4 16:37 Drug: MethylPrednisoLONE IVP 125 mg IVP once Route: IVP; Site: left antecubital; jb4 17:00 Follow up: Response: No adverse reaction; Marked relief of symptoms jb4 17:05 Drug: Furosemide IVP 40 mg IVP once; give over 2 minutes Route: IVP; Site: left jb4 antecubital; 19:00 Follow up: Response: No adverse reaction; Marked relief of symptoms jb4 17:05 Drug: Aspirin PO Chewable Tablet 324 mg PO once; 81 mg tablets x 4 Route: PO; jb4 18:00 Follow up: Response: No adverse reaction jb4 17:12 Drug: AZITHromycin IVPB 500 mg IVPB once over 1 hrs; (mix in 250 mL NS) Route: IVPB; jb4 Infused Over: 1 hrs; Site: left antecubital; 18:12 Follow up: IV Status: Completed infusion; IV Intake: 250ml jb4 Disposition Summary: 02/20/25 17:09 Hospitalization Ordered Notes: Hospitalization Status: Inpatient Admission dr5 Provider: Sharath Bella Location: Telemetry/MedSurg (Inpatient) dr5 Condition: Stable dr5 Problem: chronic dr5 Symptoms: have worsened dr5 Bed/Room Type: Standard dr5 Room Assignment: 230(02/20/25 17:38) bd Diagnosis - COPD/ Chronic obstructive pulmonary disease, unspecified dr5 - Acute on chronic combined systolic (congestive) and diastolic (congestive) heart dr5 failure - Other specified abnormal findings of blood chemistry - Elevated Troponin dr5 Forms: - Medication Reconciliation Form dr5 - SBAR form dr5 - Leadership Thank You Letter dr5 Signatures: Dispatcher [employer] EDMS Leeanne Chong Irene, RN RN iw Bryson, James, RN RN jb4 Vidal Hatch FNP-C DISPLAYER MERCHANDISE-5 Corrections: (The following items were deleted from the chart) 14:35 14:35 CBC+H.LAB.BRZ ordered. EDMS EDMS 14:35 14:35 PROBNP+C.LAB.BRZ ordered. EDMS EDMS 14:35 14:35 Troponin High Sensitivity+C.LAB.BRZ ordered. EDMS EDMS 14:35 14:35 COVID-19 Ag + Flu A+B Ag+I.LAB.BRZ ordered. EDMS EDMS 14:35 14:35 Chest Single View+RAD.RAD.BRZ ordered. EDMS EDMS 14:49 14:47 ED course: Patient has history of COPD, congestive heart failure. Will start dr5 septic workup as well as cardiac workup to rule out congestive heart failure exacerbation, COPD exacerbation, and any other etiologies that are concerning for admission.. dr5 16:17 14:40 COMPREHENSIVE METABOLIC PANEL+C.LAB.BRZ ordered. EDMS EDMS 16:18 14:35 BASIC METABOLIC PANEL+C.LAB.BRZ ordered. EDMS EDMS 16:18 14:40 BASIC METABOLIC PANEL+C.LAB.BRZ reviewed. dr5 EDMS 17:38 17:09 dr5 bd
--- NOTE | 2025-02-20 17:35 | RAD REPORT ---
EXAMINATION: ONE VIEW CHEST XR CLINICAL INDICATION: Female, 70 years old.,Congestion;Cough TECHNIQUE: Frontal chest projection is submitted. Examination is limited by patient positioning and t echnique. COMPARISON: 11/21/2024 FINDINGS: The lungs are well inflated with stable engorgement of the central vascular markings, and mild centra l interstitial prominence . No pneumothorax or sizable effusion. Stable cardiomegaly. Mediastinal contours are unremarkable. IMPRESSION: Stable central congestive changes suggesting CHF.
--- NOTE | 2025-02-20 17:49 | P.HP ---
Certification for Inpatient Patient admitted to: Inpatient With expected LOS: >2 Midnights Patient will require the following post-hospital care: None Practitioner: I am a practitioner with admitting privileges, knowledge of patient current condition, hospital course, and medical plan of care. Services: Services provided to patient in accordance with Admission requirements found in Title 42 Section 412.3 of the Code of Federal Regulations <LyssagreguLis A caballero Torin - Last Filed: 02/20/25 22:14> Patient History Date of Service: 02/20/25 Reason for admission: SOB, cough History of Present Illness: Patient is a 70-year-old female with a past medical history significant for COPD, atrial fibrillation, Asthma, CKD, CHF, Gout, hypertension, venous insufficiency, left foot wound, nicotine dependence who presents with complaint of shortness of breath that has been ongoing for the past 2 weeks. Patient also reports left lower extremity pain rated as 8/10 in severity and described as aching in quality. Patient reported associated signs and symptoms of cough. Patient denies any other signs and symptoms. Symptoms are aggravated or relieved by nothing. Patient decided to present to the hospital due to worsening symptoms. - Past Medical/Surgical History Diabetic: No -: Obstructive sleep apnea -: HTN -: CHFdiastolic -: Gout -: Venous insufficiency -: Tobacco abuse -: Morbid obesity -: Atrial flutter -: Anterior communicating artery aneurysm4 mm -: Focal moderate M1 stenosis -: CKD followed by Dr. Herrera/Mary -: Chronic warm left foot secondary to venous insufficiency -: Skin graft -: x2 -: vein removal on R leg (2014) Psychosocial/ Personal History: Lives at home with family - Family History Mother -: Diabetes Notes: Alzheimer's Father -: Heart disease, Stroke Brother -: Heart disease, Diabetes - Social History Smoking Status: Current every day smoker Alcohol use: No CD- Drugs: No Caffeine use: Yes Place of Residence: Home <AlejandrojbLuis A damico - Last Filed: 02/20/25 22:14> Date of Service: 02/22/25 <Sharath Bella - Last Filed: 02/22/25 06:45> Allergies insect venom Adverse Reaction (Verified 12/28/23 22:22) Anaphylaxis Home Medications: Topiramate 50 mg PO BID #60 tab 12/30/23 hydrOXYzine HCL [Atarax] 50 mg PO TID PRN #30 tab 12/30/23 Sertraline [Zoloft*] 50 mg PO BEDTIME 09/20/24 Albuterol Sulfate 1.25 mg IH Q6HP PRN 11/21/24 Amiodarone HCl [Cordarone*] 200 mg PO DAILY 11/21/24 Amitriptyline [Elavil*] 50 mg PO BEDTIME 11/21/24 Atorvastatin Calcium 20 mg PO DAILY 11/21/24 Collagenase [Santyl Ointment*] 30 appl TOP DAILY 11/21/24 Hydralazine HCl 50 mg PO TID PRN 11/21/24 Mupirocin Oint [Bactroban 2% Ointment*] 1 [place] TOP BID 11/21/24 Rivaroxaban [Xarelto*] 20 mg PO DAILY 11/21/24 SUMAtriptan succinate [Sumatriptan Succinate] 1 tab PO BID 11/21/24 Silver Sulfadiazine [Silvadene 1% Cream] 1 marietat TOP DAILY 11/21/24 Vitamin B Complex [B Complex] 1 tab PO DAILY 11/21/24 Zinc Sulfate [Zinc Sulfate*] 1 cap PO DAILY 11/21/24 Metoprolol Tartrate [Lopressor*] 50 mg PO BID 30 Days #60 tab 11/30/24 Bumetanide [Bumex*] 1 mg PO BID 02/20/25 Spironolactone [Aldactone*] 25 mg PO BID 02/20/25 cloNIDine HCL [Clonidine HCl] 0.1 mg PO DAILY PRN 02/20/25 Review of Systems General: Unremarkable Eyes: Unremarkable ENT: Unremarkable Respiratory: Cough, Shortness of Breath Cardiovascular: Unremarkable Gastrointestinal: Unremarkable Genitourinary: Unremarkable Musculoskeletal: Unremarkable Integumentary: Unremarkable Neurological: Unremarkable Lymphatics: Unremarkable <Luis A Collier - Last Filed: 02/20/25 22:14> Physical Examination - Physical Exam General: Alert, In no apparent distress, Oriented x3 HEENT: Atraumatic, PERRLA, Mucous membr. moist/pink, EOMI, Sclerae nonicteric Neck: Supple, 2+ carotid pulse no bruit, No LAD, Without JVD or thyroid abnormality Respiratory: Diminished Cardiovascular: No edema, Normal S1 S2, Irregular heart rate/rhythm Capillary refill: <2 Seconds Gastrointestinal: Normal bowel sounds, No tenderness Musculoskeletal: Tenderness Integumentary: Other (Left foot wound) Neurological: Normal speech, Normal tone, Normal affect - Studies Laboratory Data (last 24 hrs) 02/20/25 02/20/25 02/20/25 16:02 16:02 14:40 WBC 6.00 Hgb 11.0 L Hct 33.9 L Plt Count 184 Sodium 139 Cancelled Potassium 4.2 Cancelled BUN 25 H Cancelled Creatinine 1.30 H Cancelled Glucose 85 Cancelled Total Bilirubin 1.1 H Cancelled AST 32 Cancelled ALT 23 Cancelled Alkaline Phosphatase 85 Cancelled <MannieLuis A caballero Torin - Last Filed: 02/20/25 22:14> - Studies Laboratory Data (last 24 hrs) 02/20/25 02/20/25 02/20/25 16:02 16:02 14:40 WBC 6.00 Hgb 11.0 L Hct 33.9 L Plt Count 184 Sodium 139 Cancelled Potassium 4.2 Cancelled BUN 25 H Cancelled Creatinine 1.30 H Cancelled Glucose 85 Cancelled Total Bilirubin 1.1 H Cancelled AST 32 Cancelled ALT 23 Cancelled Alkaline Phosphatase 85 Cancelled <Sharath Bella - Last Filed: 02/22/25 06:45> Assessment and Plan - Plan Acute on chronic diastolic CHF exacerbation --Continue diuresis with Lasix. --Daily weight and strict I/O's. --Cardiology consulted. Recommendations appreciated. NSTEMI. --Will trend serial troponin. --Patient started on heparin drip. --Further management per leak patcher. COPD. --Continue home medications. Atrial fibrillation. --Continue amiodarone and heparin drip CKD 3B. --Stable. --Continue supportive care Nicotine dependence. --Patient counseled on tobacco cessation. --Refuses nicotine patch. Left foot wound. Venous insufficiency. --Wound care consult initiated. Recommendations appreciated. Hypertension. --Poorly controlled. --Continue home medications --Labetalol as needed for SBP greater than 160 mmHg. Gout\hyperlipidemia\anxiety disorder\peripheral neuropathy --Continue home medications. DVT prophylaxis with heparin drip. Discharge Plan: Home Plan to discharge in: Greater than 2 days - Advance Directives Does patient have a Living Will: No Does patient have a Durable POA for Healthcare: No - Code Status/Comfort Care Code Status Assessed: Yes Physician Review: Patient Assessed, Agree with Above Assessment and Plan Critical Care: No <Luis A Collier - Last Filed: 02/20/25 22:14> Physician Review: Patient Assessed, Agree with Above Assessment and Plan <Sharath Bella - Last Filed: 02/22/25 06:45>
[2025-02-20] MEDS: FUROSEMIDE 40 MG/4 ML VIAL IV SCH (18:00)
[2025-02-20] MEDS ORDERED: ALPRAZOLAM 0.5 MG TABLET PO PRN (21:16)
[2025-02-20] MEDS ORDERED: TRAZODONE 50 MG TABLET PO SCH (21:30)
[2025-02-20] MEDS: ENOXAPARIN 40 MG/0.4 ML SQ SCH (22:00)
[2025-02-20] MEDS: METOPROLOL TAR 50 MG TAB PO SCH (22:07)
[2025-02-20] MEDS: HYDROCODONE/APAP 5/325 MG TAB PO PRN (22:11)
[2025-02-20] MEDS ORDERED: ALBUTEROL 2.5 MG/3 ML NEB SOL NEB PRN (22:40)
[2025-02-20 23:00] LABS: Magnesium 1.5 mg/dL (1.6-2.4); Thyroid Stimulating Hormone 0.457 uIU/mL (0.358-3.740)
[2025-02-20] MEDS: LABETALOL 20 MG/4ML SYRINGE IV PRN (23:00)
[2025-02-20 23:58] LABS: PT Prothrombin Time 16.2 SECONDS (10-13.0); PTT, Activated Partial Thromb 30.7 SECONDS (27.2-37.4); Protime INR 1.45
[2025-02-21] MEDS: HEPARIN/D5W 25,000 UNIT/500 ML BAG IV SCH (00:06)
[2025-02-21 05:03] LABS: Absolute Lymphocytes (CBC) 0.6 K/uL (0.7-4.9); Hematocrit 34.8 % (36.0-45.0); Hemoglobin 11.2 g/dL (12.0-15.0); MCH 29.7 pg (27.0-35.0); MCHC 32.2 g/dL (32.0-36.0); MCV 92.1 fL (80-100); MPV 9.3 fL (7.6-11.3); Nucleated RBC Absolute Count 0.1 (0-0); Nucleated Red Blood Cells % 0.9 % (0-0); RBC Red Blood Cell Count 3.78 M/uL (3.86-4.86); White Blood Count 5.00 thou/uL (4.3-10.9)
[2025-02-21 05:33] LABS: Anion Gap 7.6 mEq/L (5.0-15.0); BUN Blood Urea Nitrogen 26.0 mg/dL (7-18); Glucose Level 141.0 mg/dL (74-106); NT PRO-BNP 13411.0 pg/mL (<125); Potassium 4.6 mEq/L (3.5-5.1)
[2025-02-21 05:50] LABS: PT Prothrombin Time 16.2 SECONDS (10-13.0); PTT, Activated Partial Thromb 38.4 SECONDS (27.2-37.4); Protime INR 1.45
[2025-02-21] MEDS ORDERED: hydrOXYzine HCL 25 MG TAB PO PRN (07:40)
[2025-02-21] MEDS: TOPIRAMATE 25 MG TAB PO SCH (08:43)
[2025-02-21] MEDS: AMIODARONE HCL 200 MG TAB PO SCH (08:44)
[2025-02-21] MEDS: ONDANSETRON 4 MG/2 ML VIAL IV PRN (08:51)
[2025-02-21] MEDS ORDERED: METOPROLOL TAR 50 MG TAB PO SCH (09:00)
[2025-02-21] MEDS ORDERED: HYDRALAZINE HCL 25 MG TABLET PO PRN (09:00)
[2025-02-21] MEDS ORDERED: BUMETANIDE 1 MG TABLET PO SCH (09:00)
[2025-02-21] MEDS ORDERED: BUPROPION HCL XL 150 MG TAB PO SCH (09:00)
[2025-02-21] MEDS: ASPIRIN EC 81 MG TAB PO SCH (10:16)
[2025-02-21] MEDS: GABAPENTIN 400 MG CAP PO SCH (10:16)
[2025-02-21] MEDS: CLOPIDOGREL 75 MG TABLET PO SCH (10:16)
--- NOTE | 2025-02-21 16:19 | P.PN ---
Date of Service: 02/21/25 Subjective: Resting in bed. She becomes short of breath with minimal exertion. She denies chest pain, fevers, chills Review of Systems General: Unremarkable Eyes: Unremarkable ENT: Unremarkable Respiratory: Cough, Shortness of Breath Cardiovascular: Unremarkable Gastrointestinal: Unremarkable Genitourinary: Unremarkable Musculoskeletal: Unremarkable Integumentary: Unremarkable Neurological: Unremarkable Lymphatics: Unremarkable Physical Examination - Physical Exam General: Alert, In no apparent distress, Oriented x3, morbid obese HEENT: Atraumatic, PERRLA, Mucous membr. moist/pink, EOMI, Sclerae nonicteric Neck: Supple, 2+ carotid pulse no bruit, No LAD, Without JVD or thyroid abnormality Respiratory: Diminished Cardiovascular: No edema, Normal S1 S2, Irregular heart rate/rhythm Capillary refill: <2 Seconds Gastrointestinal: Normal bowel sounds, No tenderness Musculoskeletal: Tenderness Integumentary: Other (Left foot wound) Neurological: Normal speech, Normal tone, Normal affect - Studies Laboratory Data (last 24 hrs) 02/20/25 02/20/25 02/20/25 16:02 16:02 14:40 WBC 6.00 Hgb 11.0 L Hct 33.9 L Plt Count 184 Sodium 139 Cancelled Potassium 4.2 Cancelled BUN 25 H Cancelled Creatinine 1.30 H Cancelled Glucose 85 Cancelled Total Bilirubin 1.1 H Cancelled AST 32 Cancelled ALT 23 Cancelled Alkaline Phosphatase 85 Cancelled - Studies Laboratory Data (last 24 hrs) 02/20/25 02/20/25 02/20/25 16:02 16:02 14:40 WBC 6.00 Hgb 11.0 L Hct 33.9 L Plt Count 184 Sodium 139 Cancelled Potassium 4.2 Cancelled BUN 25 H Cancelled Creatinine 1.30 H Cancelled Glucose 85 Cancelled Total Bilirubin 1.1 H Cancelled AST 32 Cancelled ALT 23 Cancelled Alkaline Phosphatase 85 Cancelled Assessment and Plan - Plan Acute on chronic diastolic CHF exacerbation --Increase Lasix to 80 mg IV twice daily --Daily weight and strict I/O's. --Cardiology consulted. Recommendations appreciated. NSTEMI. --Troponin downtrending --Patient started on heparin drip. --Further management per edge trimmer. COPD. --Continue home medications. Atrial fibrillation. --Continue amiodarone and heparin drip CKD 3B. --Stable. --Continue supportive care Nicotine dependence. --Patient counseled on tobacco cessation. --Refuses nicotine patch. Left foot wound. Venous insufficiency. --Wound care consult initiated. Recommendations appreciated. Hypertension. --Poorly controlled. --Continue home medications --Labetalol as needed for SBP greater than 160 mmHg. Gout\hyperlipidemia\anxiety disorder\peripheral neuropathy --Continue home medications. DVT prophylaxis with heparin drip. Discharge Plan: Home Plan to discharge in: Greater than 2 days - Advance Directives Does patient have a Living Will: No Does patient have a Durable POA for Healthcare: No - Code Status/Comfort Care Code Status Assessed: Yes
[2025-02-21] MEDS: FUROSEMIDE 40 MG/4 ML VIAL IV SCH (16:38)
[2025-02-21] MEDS: AMITRIPTYLINE 50 MG TAB PO SCH (21:12)
[2025-02-21] MEDS: ATORVASTATIN 20 MG TAB PO SCH (21:12)
[2025-02-21] MEDS: SERTRALINE HCL 50 MG TAB PO SCH (21:12)
[2025-02-22] MEDS: FOLIC ACID 1 MG TABLET PO SCH (09:24)
[2025-02-22 09:33] LABS: Absolute Lymphocytes (CBC) 1.2 K/uL (0.7-4.9); Hematocrit 34.9 % (36.0-45.0); Hemoglobin 10.9 g/dL (12.0-15.0); MCH 29.3 pg (27.0-35.0); MCHC 31.2 g/dL (32.0-36.0); MCV 94.1 fL (80-100); MPV 9.4 fL (7.6-11.3); Nucleated RBC Absolute Count 0.0 (0-0); Nucleated Red Blood Cells % 0.5 % (0-0); RBC Red Blood Cell Count 3.71 M/uL (3.86-4.86); White Blood Count 6.00 thou/uL (4.3-10.9)
[2025-02-22 09:53] LABS: ALT/SGPT 25.0 U/L (13-56); AST/SGOT 26.0 U/L (15-37); Albumin 2.9 g/dL (3.4-5.0); Albumin/Globulin Ratio 0.6 (1.1-1.8); Alkaline Phosphatase 69.0 U/L (45-117); Anion Gap 3.7 mEq/L (5.0-15.0); BUN Blood Urea Nitrogen 32.0 mg/dL (7-18); Globulin 4.5 g/dL (2.3-3.5); Glucose Level 93.0 mg/dL (74-106); Potassium 4.7 mEq/L (3.5-5.1)
--- NOTE | 2025-02-22 12:28 | P.CNS ---
Date of Consult: 02/22/25 Chief Complaint: SOB, cough History of Present Illness: Patient with PMH of diastolic heart failure, morbid obesity, presented with worsening SOB, WHITLEY and bilateral lower extremities edema, denies chest pain, no palpitations, no syncope, patient has not been complaint with her medications. Allergies insect venom Adverse Reaction (Verified 12/28/23 22:22) Anaphylaxis Home medications list reviewed: Yes Home Medications: Topiramate 50 mg PO BID #60 tab 12/30/23 hydrOXYzine HCL [Atarax] 50 mg PO TID PRN #30 tab 12/30/23 Sertraline [Zoloft*] 50 mg PO BEDTIME 09/20/24 Albuterol Sulfate 1.25 mg IH Q6HP PRN 11/21/24 Amiodarone HCl [Cordarone*] 200 mg PO DAILY 11/21/24 Amitriptyline [Elavil*] 50 mg PO BEDTIME 11/21/24 Atorvastatin Calcium 20 mg PO DAILY 11/21/24 Collagenase [Santyl Ointment*] 30 appl TOP DAILY 11/21/24 Hydralazine HCl 50 mg PO TID PRN 11/21/24 Mupirocin Oint [Bactroban 2% Ointment*] 1 [place] TOP BID 11/21/24 Rivaroxaban [Xarelto*] 20 mg PO DAILY 11/21/24 SUMAtriptan succinate [Sumatriptan Succinate] 1 tab PO BID 11/21/24 Silver Sulfadiazine [Silvadene 1% Cream] 1 [place] TOP DAILY 11/21/24 Vitamin B Complex [B Complex] 1 tab PO DAILY 11/21/24 Zinc Sulfate [Zinc Sulfate*] 1 cap PO DAILY 11/21/24 Metoprolol Tartrate [Lopressor*] 50 mg PO BID 30 Days #60 tab 11/30/24 Bumetanide [Bumex*] 1 mg PO BID 02/20/25 Spironolactone [Aldactone*] 25 mg PO BID 02/20/25 cloNIDine HCL [Clonidine HCl] 0.1 mg PO DAILY PRN 02/20/25 - Past Medical/Surgical History Diabetic: No -: Obstructive sleep apnea -: HTN -: CHFdiastolic -: Gout -: Venous insufficiency -: Tobacco abuse -: Morbid obesity -: Atrial flutter -: Anterior communicating artery aneurysm4 mm -: Focal moderate M1 stenosis -: CKD followed by Dr. Herrera/Mary -: Chronic warm left foot secondary to venous insufficiency -: Skin graft -: x2 -: vein removal on R leg (2014) Psychosocial/ Personal History: Lives at home with family - Family History Mother Medical History: Diabetes Notes: Alzheimer's Father Medical History: Heart disease, Stroke Brother Medical History: Heart disease, Diabetes - Social History Smoking Status: Current every day smoker Alcohol use: No CD- Drugs: No Caffeine use: Yes Place of Residence: Home Review of Systems 10-point ROS is otherwise unremarkable Physical Examination Temp Pulse Resp BP Pulse Ox 97.8 F 91 H 16 130/78 98 02/22/25 08:00 02/22/25 09:24 02/22/25 08:00 02/22/25 09:24 02/22/25 08:00 General: Alert, In no apparent distress HEENT: Atraumatic, PERRLA, Mucous membr. moist/pink, EOMI, Sclerae nonicteric Neck: Supple, 2+ carotid pulse no bruit, No LAD, Without JVD or thyroid abnormality Respiratory: Clear to auscultation bilaterally, Normal air movement Cardiovascular: Regular rate/rhythm, Normal S1 S2 Gastrointestinal: Normal bowel sounds, No tenderness Musculoskeletal: No tenderness Integumentary: No rashes Neurological: Normal gait, Normal speech, Normal tone, Normal affect Lymphatics: No axilla or inguinal lymphadenopathy - Problems (1) Acute on chronic diastolic heart failure Current Visit: No Status: Acute Plan: continue lasix 80 mg IV BID may siwtch to Bumex 2 mg po BID on discharge. continue lopressor 50 mg po BID Continue Hydralazine 50 mg po BID Continue to monitor input and output and electrolytes (2) Elevated troponin Onset Date: 05/22/16 Current Visit: No Status: Acute Plan: type 2 [place] from CHF. D/C Heparin drip ASA 81 mg daily Plavix 75 mg daily patient to follow up with her crm campaign manager as outpatient. (3) History of atrial fibrillation Current Visit: No Status: Acute Plan: continue Amiodarone 200 mg BID Resume Xarelto 20 mg daily monitor on tele
--- NOTE | 2025-02-22 16:11 | P.PN ---
Date of Service: 02/22/25 Subjective: Resting in bed. She becomes short of breath with minimal exertion. She denies chest pain, fevers, chills Review of Systems General: Unremarkable Eyes: Unremarkable ENT: Unremarkable Respiratory: Cough, Shortness of Breath Cardiovascular: Unremarkable Gastrointestinal: Unremarkable Genitourinary: Unremarkable Musculoskeletal: Unremarkable Integumentary: Unremarkable Neurological: Unremarkable Lymphatics: Unremarkable Physical Examination - Physical Exam General: Alert, In no apparent distress, Oriented x3, morbid obese HEENT: Atraumatic, PERRLA, Mucous membr. moist/pink, EOMI, Sclerae nonicteric Neck: Supple, 2+ carotid pulse no bruit, No LAD, Without JVD or thyroid abnormality Respiratory: Diminished Cardiovascular: No edema, Normal S1 S2, Irregular heart rate/rhythm Capillary refill: <2 Seconds Gastrointestinal: Normal bowel sounds, No tenderness Musculoskeletal: Tenderness Integumentary: Other (Left foot wound) Neurological: Normal speech, Normal tone, Normal affect - Studies Laboratory Data (last 24 hrs) 02/20/25 02/20/25 02/20/25 16:02 16:02 14:40 WBC 6.00 Hgb 11.0 L Hct 33.9 L Plt Count 184 Sodium 139 Cancelled Potassium 4.2 Cancelled BUN 25 H Cancelled Creatinine 1.30 H Cancelled Glucose 85 Cancelled Total Bilirubin 1.1 H Cancelled AST 32 Cancelled ALT 23 Cancelled Alkaline Phosphatase 85 Cancelled - Studies Laboratory Data (last 24 hrs) 02/20/25 02/20/25 02/20/25 16:02 16:02 14:40 WBC 6.00 Hgb 11.0 L Hct 33.9 L Plt Count 184 Sodium 139 Cancelled Potassium 4.2 Cancelled BUN 25 H Cancelled Creatinine 1.30 H Cancelled Glucose 85 Cancelled Total Bilirubin 1.1 H Cancelled AST 32 Cancelled ALT 23 Cancelled Alkaline Phosphatase 85 Cancelled Assessment and Plan - Plan Acute on chronic diastolic CHF exacerbation --Obtain CXR in the a.m. --Continue Lasix and switch over to Bumex on discharge --Daily weight and strict I/O's. --Appreciate cardiology recommendations NSTEMI. --Troponin downtrending --Stop heparin --Further management per educational resource center teacher. COPD. --Continue as needed albuterol Atrial fibrillation. --Continue amiodarone and Xarelto CKD 3B. --Stable. --Continue supportive care Nicotine dependence. --Patient counseled on tobacco cessation. --Refuses nicotine patch. Left foot wound. Venous insufficiency. --Wound care consult initiated. Recommendations appreciated. Hypertension. --Poorly controlled. --Continue home medications --Labetalol as needed for SBP greater than 160 mmHg. Gout\hyperlipidemia\anxiety disorder\peripheral neuropathy --Continue home medications. DVT prophylaxis with heparin drip. Discharge Plan: Home Plan to discharge in: Greater than 2 days - Advance Directives Does patient have a Living Will: No Does patient have a Durable POA for Healthcare: No - Code Status/Comfort Care Code Status Assessed: Yes
--- NOTE | 2025-02-22 18:02 | RAD REPORT ---
EXAMINATION: ONE VIEW CHEST XR CLINICAL INDICATION: Follow-up chest x-ray for CHF TECHNIQUE: Frontal chest projection is submitted. Examination is limited by patient positioning and t echnique. COMPARISON: 02/20/2025 FINDINGS: There is evidence of right lower lung atelectasis. Moderate bilateral pulmonary opacities show mild i mprovement. Heart is moderately enlarged. No displaced fractures identified. IMPRESSION: Right lower lobe atelectasis has developed since the comparison study. Etiology is not apparent. Mild improvement in CHF.
[2025-02-23] MEDS: BUMETANIDE 1 MG TABLET PO SCH (09:19)
[2025-02-23] MEDS: RIVAROXABAN 20 MG TABLET PO SCH (09:19)
--- NOTE | 2025-02-23 15:21 | P.PN ---
Subjective Date of Service: 02/23/25 Chief Complaint: SOB, cough Patient looks drowsy but easily arousable. She is wearing 4 L of oxygen by nasal cannula. She has no new complain. Physical Examination - Vital Signs Temperature: 98.2 F Blood Pressure: 140/85 Pulse: 93 Respirations: 16 Pulse Ox (%): 91 Assessment And Plan - Plan Physical examination General: Alert and oriented x 3, NAD, HEENT: Anicteric sclera Neck: Supple, no elevated JVD Heart: Heart sounds 1 and 2 normal, regular rhythm, normal rate, no pedal edema Lungs: Diminished breath sounds bilaterally, mild scattered rhonchi. Abdomen: Soft, nondistended, nontender, normal bowel sounds. Extremities: Left lower extremity swollen compared to the right. Skin: Left lower extremity lymphedema and venous stasis dermatitis. Neuro: No focal motor deficit. Normal speech. Psychiatry: Drowsy, easily arousable, no agitation. Acute on chronic diastolic CHF exacerbation Status post IV Lasix, switch to oral Bumex Daily weight and strict I/O's. NSTEMI CAD Troponin downtrending Cardiology input appreciated Status post heparin drip Xarelto resumed Continue aspirin and Plavix COPD Metabolic encephalopathy Suspect hypercarbic respiratory failure Continue as needed albuterol Check venous blood gas Start BiPAP therapy Pulmonary consult Atrial fibrillation. Continue amiodarone and Xarelto CKD 3B. Stable. Monitor renal function with diuresis Nicotine dependence. Tobacco cessation advised Left foot wound. Venous insufficiency. Continue wound care. Hypertension. BP readings improved Continue home medications Labetalol as needed for BP spikes Gout\hyperlipidemia\anxiety disorder\peripheral neuropathy Stable Continue home medications. DVT prophylaxis: Xarelto Discharge Plan: Home
[2025-02-23 16:17] LABS: Arterial Blood Carboxyhemoglob 1.8 % (0.0-1.5); Blood Gas Inspired Oxygen 40.0 %; Blood Gas Oxyhemoglobin 69.2 % (94.0-97.0)
[2025-02-23 16:19] LABS: Blood O2 Saturation 58.8 % (92.0-98.5)
[2025-02-24 05:22] LABS: Blood O2 Saturation 88.3 % (92.0-98.5)
[2025-02-24 08:44] LABS: Hemoglobin 10.4 g/dL (12.0-15.0); RBC Red Blood Cell Count 3.51 M/uL (3.86-4.86); White Blood Count 4.30 thou/uL (4.3-10.9)
[2025-02-24 08:45] LABS: Absolute Lymphocytes (CBC) 0.7 K/uL (0.7-4.9); Hematocrit 32.9 % (36.0-45.0); MCH 29.5 pg (27.0-35.0); MCHC 31.4 g/dL (32.0-36.0); MCV 93.8 fL (80-100); MPV 9.2 fL (7.6-11.3); Nucleated RBC Absolute Count 0.0 (0-0); Nucleated Red Blood Cells % 0.7 % (0-0)
[2025-02-24] MEDS: HEPARIN 5000 UNIT/ML 1 ML VIAL SQ SCH (09:00)
[2025-02-24 09:32] LABS: Potassium 4.1 mEq/L (3.5-5.1)
[2025-02-24 09:34] LABS: Anion Gap 6.1 mEq/L (5.0-15.0); BUN Blood Urea Nitrogen 29.0 mg/dL (7-18); Glucose Level 83.0 mg/dL (74-106); Magnesium 1.7 mg/dL (1.6-2.4)
[2025-02-24 10:45] LABS: Blood O2 Saturation 94.8 % (92.0-98.5)
--- NOTE | 2025-02-24 12:02 | P.PN ---
Subjective Date of Service: 02/24/25 Chief Complaint: SOB, cough Patient remained drowsy. BiPAP/CPAP is on. Physical Examination - Vital Signs Temperature: 97.8 F Blood Pressure: 121/83 Pulse: 94 Respirations: 18 Pulse Ox (%): 95 Assessment And Plan - Plan Physical examination General: Drowsy, NAD, HEENT:BIPAP in place Heart: Heart sounds 1 and 2 normal, regular rhythm, normal rate, no pedal edema Lungs: Diminished breath sounds bilaterally, mild scattered rhonchi. Abdomen: Soft, nondistended, nontender, normal bowel sounds. Extremities: Left lower extremity swollen compared to the right. Skin: Left lower extremity lymphedema and venous stasis dermatitis. Neuro: No focal motor deficit. Normal speech. Psychiatry: Drowsy, no agitation. Plan: Acute on chronic diastolic CHF exacerbation Status post IV Lasix then switched to oral Bumex. Will switch back to IV Lasix given somnolence Daily weight and strict I/O's. NSTEMI CAD Troponin downtrended Cardiology input appreciated Status post heparin drip Xarelto resumed Continue Plavix COPD Metabolic encephalopathy Acute metabolic encephalopathy due to hypercapnia Persistent CO2 retention, pCO2 92 today. Continue bronchodilators. Continue BiPAP therapy Pulmonary consulted. Atrial fibrillation. Continue amiodarone and Xarelto CKD 3B. Stable. Monitor renal function with diuresis Nicotine dependence. Tobacco cessation advised Left foot wound. Venous insufficiency. Continue wound care with Vashe. Hypertension. BP readings improved Continue home medications Labetalol as needed for BP spikes Gout\hyperlipidemia\anxiety disorder\peripheral neuropathy Stable Continue home medications. DVT prophylaxis: Xarelto Discharge Plan: Home
[2025-02-24 12:12] LABS: Differential Total Cells Count 100; Segmented Neutrophils 62 % (40-80)
[2025-02-24 12:13] LABS: Anisocytosis 1+; Blood Morphology Comment NOTED (NOT SEEN)
[2025-02-24] MEDS: FUROSEMIDE 20 MG/ 2ML VIAL IV SCH (17:05)
[2025-02-25 08:12] LABS: Anion Gap 7.4 mEq/L (5.0-15.0); BUN Blood Urea Nitrogen 25.0 mg/dL (7-18); Glucose Level 92.0 mg/dL (74-106); Potassium 4.4 mEq/L (3.5-5.1)
[2025-02-25 08:51] LABS: Absolute Lymphocytes (CBC) 0.8 K/uL (0.7-4.9); Hematocrit 34.8 % (36.0-45.0); Hemoglobin 11.1 g/dL (12.0-15.0); MCH 29.5 pg (27.0-35.0); MCHC 31.8 g/dL (32.0-36.0); MCV 92.8 fL (80-100); MPV 9.1 fL (7.6-11.3); Nucleated RBC Absolute Count 0.0 (0-0); Nucleated Red Blood Cells % 0.5 % (0-0); RBC Red Blood Cell Count 3.75 M/uL (3.86-4.86); White Blood Count 4.90 thou/uL (4.3-10.9)
[2025-02-25] MEDS: ARFORMOTEROL TARTRATE 15 MCG/2 ML VIAL.NEB NEB SCH (10:38)
[2025-02-25] MEDS: predniSONE 20 MG TAB PO SCH (10:46)
--- NOTE | 2025-02-25 10:46 | P.CNS ---
Date of Consult: 02/25/25 Reason for Consult: Respiratory failure Chief Complaint: SOB, cough History of Present Illness: Patient is 70 years of age with a history of COPD A-fib very poor historian has been sick for the past 2 weeks lives by herself recently been complaining of worsening dyspnea active smoker history of sleep apnea noncompliant with CPAP admitted with hypoxic hypercapnic respiratory failure patient has pretty impressive cardiomegaly Denies any fever or chills Allergies insect venom Adverse Reaction (Verified 12/28/23 22:22) Anaphylaxis Home Medications: Topiramate 50 mg PO BID #60 tab 12/30/23 hydrOXYzine HCL [Atarax] 50 mg PO TID PRN #30 tab 12/30/23 Sertraline [Zoloft*] 50 mg PO BEDTIME 09/20/24 Albuterol Sulfate 1.25 mg IH Q6HP PRN 11/21/24 Amiodarone HCl [Cordarone*] 200 mg PO DAILY 11/21/24 Amitriptyline [Elavil*] 50 mg PO BEDTIME 11/21/24 Atorvastatin Calcium 20 mg PO DAILY 11/21/24 Collagenase [Santyl Ointment*] 30 appl TOP DAILY 11/21/24 Hydralazine HCl 50 mg PO TID PRN 11/21/24 Mupirocin Oint [Bactroban 2% Ointment*] 1 [place] TOP BID 11/21/24 Rivaroxaban [Xarelto*] 20 mg PO DAILY 11/21/24 SUMAtriptan succinate [Sumatriptan Succinate] 1 tab PO BID 11/21/24 Silver Sulfadiazine [Silvadene 1% Cream] 1 [place] TOP DAILY 11/21/24 Vitamin B Complex [B Complex] 1 tab PO DAILY 11/21/24 Zinc Sulfate [Zinc Sulfate*] 1 cap PO DAILY 11/21/24 Metoprolol Tartrate [Lopressor*] 50 mg PO BID 30 Days #60 tab 11/30/24 Bumetanide [Bumex*] 1 mg PO BID 02/20/25 Spironolactone [Aldactone*] 25 mg PO BID 02/20/25 cloNIDine HCL [Clonidine HCl] 0.1 mg PO DAILY PRN 02/20/25 - Past Medical/Surgical History Diabetic: No -: Obstructive sleep apnea -: HTN -: CHFdiastolic -: Gout -: Venous insufficiency -: Tobacco abuse -: Morbid obesity -: Atrial flutter -: Anterior communicating artery aneurysm4 mm -: Focal moderate M1 stenosis -: CKD followed by Dr. Herrera/Mary -: Chronic warm left foot secondary to venous insufficiency -: Skin graft -: x2 -: vein removal on R leg (2015) Psychosocial/ Personal History: Lives at home with family - Family History Mother Medical History: Diabetes Notes: Alzheimer's Father Medical History: Heart disease, Stroke Brother Medical History: Heart disease, Diabetes - Social History Smoking Status: Current every day smoker Alcohol use: No CD- Drugs: No Caffeine use: Yes Place of Residence: Home Review of Systems General: Weakness Respiratory: Cough, Shortness of Breath Physical Examination Temp Pulse Resp BP Pulse Ox 97.8 F 79 20 136/93 H 100 02/25/25 04:00 02/25/25 09:22 02/25/25 09:00 02/25/25 09:22 02/25/25 09:00 General: Alert, Oriented x3 Respiratory: Expiratory wheezes Cardiovascular: Regular rate/rhythm, Normal S1 S2, Edema, Irregular heart rate/rhythm Gastrointestinal: Normal bowel sounds, Soft and benign - Problems (1) Acute and chronic respiratory failure ([id number]) Current Visit: Yes Status: Acute Plan: Patient is 70 years of age admitted with acute on chronic respiratory failure she is hypercapnic noncompliant with CPAP at home and patient has a non-STEMI at this time titrate sat to 90% add prednisone nebulized bronchodilators changed to Diamox and spironolactone previous echo showed diastolic dysfunction patient is anticoagulated patient will benefit from a noninvasive ventilator to prevent readmissions BiPAP was considered Qualifiers: Respiratory failure complication: hypoxia and hypercapnia Qualified Code(s): J96.21 - Acute and chronic respiratory failure with hypoxia; J96.22 - Acute and chronic respiratory failure with hypercapnia
[2025-02-25] MEDS: acetaZOLAMIDE 250 MG TAB PO SCH (11:04)
[2025-02-25] MEDS: SPIRONOLACTONE 25 MG TABLET PO SCH (11:04)
[2025-02-25] MEDS: IPRATROPIUM BROM 0.5MG/2.5ML NEB SCH (13:29)
--- NOTE | 2025-02-25 14:07 | P.PN ---
Subjective Date of Service: 02/25/25 Chief Complaint: SOB, cough Patient is more awake and interactive today but finding difficult to remember events leading tothis hospitalization. She used BiPAP all night. She is tolerating oxygen by nasal cannula with 100% SaO2. Physical Examination - Vital Signs Temperature: 97.8 F Blood Pressure: 118/85 Pulse: 74 Respirations: 18 Pulse Ox (%): 97 Assessment And Plan - Plan Physical examination General: Drowsy, NAD, HEENT:BIPAP in place Heart: Heart sounds 1 and 2 normal, regular rhythm, normal rate, no pedal edema Lungs: Diminished breath sounds bilaterally, mild scattered rhonchi. Abdomen: Soft, nondistended, nontender, normal bowel sounds. Extremities: Left lower extremity swollen compared to the right. Skin: Left lower extremity lymphedema and venous stasis dermatitis. Neuro: No focal motor deficit. Normal speech. Psychiatry: Drowsy, no agitation. Plan: Acute on chronic diastolic CHF exacerbation Status post IV Lasix then switched to oral Bumex. Patient diuresing well with IV Lasix. Continue current dose Daily weight and strict I/O's. NSTEMI CAD Troponin downtrended. Elevated troponin deemed secondary to demand ischemia from CHF Cardiology is following Status post heparin drip Xarelto resumed Continue Plavix COPD exacerbation Metabolic encephalopathy Acute metabolic encephalopathy due to hypercapnia AMS improved. Continue bronchodilators. Continue BiPAP therapy as needed Pulmonary input appreciated. Patient started on prednisone for COPD exacerbation Atrial fibrillation. Continue amiodarone and Xarelto CKD 3B. Stable. Renal function is stable with diuresis Nicotine dependence. Tobacco cessation advised Left foot wound. Venous insufficiency. Continue wound care with Vashe. Hypertension. Patient is currently normotensive Continue home medications Labetalol as needed for BP spikes Gout\hyperlipidemia\anxiety disorder\peripheral neuropathy Stable Continue home medications. DVT prophylaxis: Xarelto Discharge Plan: Home
[2025-02-26 04:45] LABS: Absolute Lymphocytes (CBC) 0.4 K/uL (0.7-4.9); Hematocrit 33.7 % (36.0-45.0); Hemoglobin 10.8 g/dL (12.0-15.0); MCH 29.5 pg (27.0-35.0); MCHC 32.1 g/dL (32.0-36.0); MCV 91.9 fL (80-100); MPV 9.6 fL (7.6-11.3); Nucleated RBC Absolute Count 0.0 (0-0); Nucleated Red Blood Cells % 0.5 % (0-0); RBC Red Blood Cell Count 3.67 M/uL (3.86-4.86); White Blood Count 4.50 thou/uL (4.3-10.9)
[2025-02-26 05:07] LABS: Anion Gap 8.1 mEq/L (5.0-15.0); BUN Blood Urea Nitrogen 25.0 mg/dL (7-18); Glucose Level 124.0 mg/dL (74-106); Potassium 4.1 mEq/L (3.5-5.1)
--- NOTE | 2025-02-26 10:24 | P.PN ---
Subjective Date of Service: 02/26/25 Chief Complaint: SOB, cough Subjective: No new changes Review of Systems 10-point ROS is otherwise unremarkable Physical Examination - Vital Signs Temperature: 97.8 F Blood Pressure: 91/62 Pulse: 75 Respirations: 16 Pulse Ox (%): 100 - Physical Exam General: Alert, In no apparent distress HEENT: Atraumatic, PERRLA, EOMI Neck: Supple, JVD not distended Respiratory: Clear to auscultation bilaterally, Normal air movement Cardiovascular: Regular rate/rhythm, Normal S1 S2 Gastrointestinal: Normal bowel sounds, No tenderness Musculoskeletal: No tenderness Integumentary: No rashes Neurological: Normal speech, Normal tone, Normal affect Lymphatics: No axilla or inguinal lymphadenopathy - Studies Microbiology Data (last 24 hrs): 02/20/25 15:45 Blood - Blood Aerobic Blood Culture - Final No growth in 5 days. 02/20/25 15:45 Blood - Blood Anaerobic Blood Culture - Final No growth in 5 days. 02/20/25 16:02 Blood - Blood Aerobic Blood Culture - Final No growth in 5 days. 02/20/25 16:02 Blood - Blood Anaerobic Blood Culture - Final No growth in 5 days. Medications List Reviewed: Yes Assessment And Plan - Current Problems (Diagnosis) (1) Acute on chronic diastolic heart failure Current Visit: No Status: Acute Plan: continue Bumex 2 mg po BID on discharge. continue lopressor 50 mg po BID Continue Hydralazine 50 mg po BID Continue to monitor input and output and electrolytes (2) Elevated troponin Onset Date: 05/22/16 Current Visit: No Status: Acute Plan: type 2 [place] from CHF. D/C Heparin drip ASA 81 mg daily Plavix 75 mg daily patient to follow up with her tape sewer as outpatient. (3) History of atrial fibrillation Current Visit: No Status: Acute Plan: continue Amiodarone 200 mg BID Resume Xarelto 20 mg daily monitor on tele Physician Review: Patient Assessed, Agree with Above Assessment and Plan
[2025-02-27 18:07] LABS: Blood Gas Oxyhemoglobin 94.7 % (94.0-97.0); Blood O2 Saturation 98.3 % (92.0-98.5)
[2025-02-27 18:08] LABS: Arterial Blood Carboxyhemoglob 0.7 % (0.0-1.5)
[2025-02-27 18:09] LABS: Blood Gas Inspired Oxygen 40.0 %
[2025-02-27] MEDS: ENSURE MAX PROTEIN 330 ML LIQUID PO SCH (21:26)
[2025-02-28 00:34] LABS: Absolute Lymphocytes (CBC) 0.6 K/uL (0.7-4.9); Hematocrit 36.8 % (36.0-45.0); Hemoglobin 11.6 g/dL (12.0-15.0); MCH 29.1 pg (27.0-35.0); MCHC 31.4 g/dL (32.0-36.0); MCV 92.7 fL (80-100); MPV 9.5 fL (7.6-11.3); Nucleated RBC Absolute Count 0.0 (0-0); Nucleated Red Blood Cells % 0.2 % (0-0); RBC Red Blood Cell Count 3.97 M/uL (3.86-4.86); White Blood Count 6.00 thou/uL (4.3-10.9)
[2025-02-28 01:00] LABS: ALT/SGPT 15 U/L (13-56); Albumin 2.5 g/dL (3.4-5.0); Albumin/Globulin Ratio 0.5 (1.1-1.8); Alkaline Phosphatase 58 U/L (45-117); Anion Gap 6.9 mEq/L (5.0-15.0); BUN Blood Urea Nitrogen 29 mg/dL (7-18); Globulin 4.7 g/dL (2.3-3.5); Glucose Level 122 mg/dL (74-106); Magnesium 1.9 mg/dL (1.6-2.4); Potassium 3.9 mEq/L (3.5-5.1)
[2025-02-28 01:01] LABS: AST/SGOT < 10 U/L (15-37)
[2025-02-28 01:02] LABS: Troponin High Sensitivity 206.2 pg/mL (<58.9)
--- NOTE | 2025-02-28 09:36 | P.PN ---
Subjective Date of Service: 02/28/25 Chief Complaint: SOB, cough Subjective: No new changes, No C/O voiced, Tolerating diet, Improving Review of Systems 10-point ROS is otherwise unremarkable Physical Examination - Vital Signs Temperature: 97.6 F Blood Pressure: 136/86 Pulse: 54 Respirations: 16 Pulse Ox (%): 100 - Physical Exam General: Alert, In no apparent distress HEENT: Atraumatic, PERRLA, EOMI Neck: Supple, JVD not distended Respiratory: Clear to auscultation bilaterally, Normal air movement Cardiovascular: Regular rate/rhythm, Normal S1 S2 Gastrointestinal: Normal bowel sounds, No tenderness Musculoskeletal: No tenderness Integumentary: No rashes Neurological: Normal speech, Normal tone, Normal affect Lymphatics: No axilla or inguinal lymphadenopathy - Studies Medications List Reviewed: Yes Assessment And Plan - Current Problems (Diagnosis) (1) Acute on chronic diastolic heart failure Current Visit: No Status: Acute Plan: continue Diamox 250 mg po BID on discharge. continue lopressor 50 mg po BID Continue Hydralazine 50 mg po BID Cardiology will sign off, please call with any questions. (2) Elevated troponin Onset Date: 05/22/16 Current Visit: No Status: Acute Plan: type 2 [place] from CHF. ASA 81 mg daily Plavix 75 mg daily patient to follow up with her behavioral health care coordinator as outpatient. (3) History of atrial fibrillation Current Visit: No Status: Acute Plan: continue Amiodarone 200 mg BID Resume Xarelto 20 mg daily monitor on tele Physician Review: Patient Assessed, Agree with Above Assessment and Plan
[2025-02-28 10:24] LABS: HCO3, Venous Blood Gas 39.4 mmol/L (21.0-29.0); PH, Venous Blood Gas 7.29 (7.32-7.42); PO2, Venous Blood Gas 58 mmHg (25-40)
[2025-02-28 10:25] LABS: Base Excess, VBG 12.8 mmol/L (-2.0-3.0); O2 Saturation, VBG 86.3 % (40.0-70.0)
[2025-02-28 10:27] LABS: PCO2, Venous Blood Gas 82 mmHg (41-51)
[2025-03-01] MEDS: MELATONIN 5 MG TABLET PO SCH (21:00)
[2025-03-02] MEDS: LACTULOSE 20 GM/30 ML UCUP PO PRN (06:27)
[2025-03-02 15:40] LABS: Absolute Lymphocytes (CBC) 0.5 K/uL (0.7-4.9); Hematocrit 38.9 % (36.0-45.0); Hemoglobin 12.3 g/dL (12.0-15.0); MCH 29.1 pg (27.0-35.0); MCHC 31.5 g/dL (32.0-36.0); MCV 92.4 fL (80-100); MPV 9.6 fL (7.6-11.3); Nucleated RBC Absolute Count 0.0 (0-0); Nucleated Red Blood Cells % 0.2 % (0-0); RBC Red Blood Cell Count 4.22 M/uL (3.86-4.86); White Blood Count 6.10 thou/uL (4.3-10.9)
[2025-03-02 15:55] LABS: Albumin 2.6 g/dL (3.4-5.0); Albumin/Globulin Ratio 0.6 (1.1-1.8); Alkaline Phosphatase 59 U/L (45-117); Anion Gap 4.5 mEq/L (5.0-15.0); BUN Blood Urea Nitrogen 42 mg/dL (7-18); Globulin 4.5 g/dL (2.3-3.5); Glucose Level 130 mg/dL (74-106); Magnesium 2.0 mg/dL (1.6-2.4); Potassium 4.5 mEq/L (3.5-5.1)
[2025-03-02 16:00] LABS: ALT/SGPT < 14 U/L (13-56); AST/SGOT < 10 U/L (15-37)
[2025-03-02 20:57] LABS: Blood Morphology Comment NOT SEEN (NOT SEEN); White Blood Cell Scan OK (OK)
[2025-03-03] MEDS: NA CHLORIDE 0.9% 1,000 ML IV SCH (02:28)
[2025-03-03 06:02] LABS: Absolute Lymphocytes (CBC) 0.6 K/uL (0.7-4.9); Hematocrit 36.8 % (36.0-45.0); Hemoglobin 11.8 g/dL (12.0-15.0); MCH 29.4 pg (27.0-35.0); MCHC 32.0 g/dL (32.0-36.0); MCV 91.9 fL (80-100); MPV 9.7 fL (7.6-11.3); Nucleated RBC Absolute Count 0.0 (0-0); Nucleated Red Blood Cells % 0.4 % (0-0); RBC Red Blood Cell Count 4.01 M/uL (3.86-4.86); White Blood Count 6.30 thou/uL (4.3-10.9)
[2025-03-03 06:19] LABS: Albumin 2.6 g/dL (3.4-5.0); Albumin/Globulin Ratio 0.6 (1.1-1.8); Alkaline Phosphatase 58 U/L (45-117); Anion Gap 4.4 mEq/L (5.0-15.0); BUN Blood Urea Nitrogen 43 mg/dL (7-18); Globulin 4.2 g/dL (2.3-3.5); Glucose Level 110 mg/dL (74-106); Potassium 4.4 mEq/L (3.5-5.1)
[2025-03-03 06:22] LABS: ALT/SGPT < 14 U/L (13-56); AST/SGOT < 10 U/L (15-37)
[2025-03-04] MEDS ORDERED: GABAPENTIN 400 MG CAP PO SCH (09:00)
[2025-03-04] MEDS: GABAPENTIN 100 MG CAP PO SCH (09:21)
[2025-03-05] MEDS: IPRATROPIUM BROM 0.5MG/2.5ML ONE (22:37)
[2025-03-06] MEDS: ACETAMINOPHEN 325 MG TABLET PO PRN (04:49)
[2025-03-06 04:53] VITALS: BMI 40.5
--- NOTE | 2025-03-06 05:42 | P.PN ---
Date of Service: 03/05/25 Subjective Patient has done really well over the last few days. We have had to make significant adjustments to patient's medications as she was very obtunded and was not really waking up. Multiple medications were discontinued. Patient is much more awake and alert and now she is participating with physical therapy. The goal of care is to try to get her home with home health per her wishes as she does not want to go to a care home facility. If she continues to improve at this rate then it is possible we could work on trying to get her back home. Will continue with aggressive physical therapy and we will see how she improves over the next few days. Will continue with modafinil for daytime somnolence. Patient clinical symptoms are much better at this time. Physical Examination - Vital Signs Reviewed Physical examination General: Awake alert and oriented to person place and time HEENT:Within normal limits Heart: Regular rate rhythm with no murmurs Lungs: Clear bilaterally Abdomen: Soft, nondistended, nontender, normal bowel sounds. Extremities: Left lower extremity swollen compared to the right. Skin: Left lower extremity lymphedema and venous stasis dermatitis. Neuro: Generalized weakness but patient much more awake and alert Assessment And Plan - Assessment/Plan Assessment/Plan: Obesity hypoventilation syndrome; hypercapnic respiratory failure; Daytime somnolence Continue with BiPAP at night Continue modafinil Encourage out of bed into a chair throughout the day Continue with outpatient follow-up for evaluation for GLP-1 agonist therapy Acute on chronic diastolic CHF exacerbation Status post IV Lasix then switched to oral Bumex. Patient diuresing well with IV Lasix. Continue current dose Daily weight and strict I/O's. NSTEMI CAD Troponin downtrended. Elevated troponin deemed secondary to demand ischemia from CHF Cardiology is following Status post heparin drip Xarelto resumed Continue Plavix COPD exacerbation Metabolic encephalopathy Acute metabolic encephalopathy due to hypercapnia AMS improved. Continue bronchodilators. Continue BiPAP therapy as needed Pulmonary input appreciated. Patient started on prednisone for COPD exacerbation Atrial fibrillation. Continue amiodarone and Xarelto CKD 3B. Stable. Renal function is stable with diuresis Nicotine dependence. Tobacco cessation advised Left foot wound. Venous insufficiency. Continue wound care with Vashe. Hypertension. Patient is currently normotensive Continue home medications Labetalol as needed for BP spikes Gout\hyperlipidemia\anxiety disorder\peripheral neuropathy Stable Continue home medications. DVT prophylaxis: Xarelto Discharge Plan: Home with HH
--- NOTE | 2025-03-06 10:34 | P.PN ---
Date of Service: 03/06/25 Subjective: Feeling slightly better today breathing feels a little easier strength slowly improving more awake/alert, slight confusion Physical Exam: Gen: Alert, Oriented, NAD CV: Regular rate and rhythm, no edema Pulm: Nonlabored respirations on 2L NC, clear bilaterally Abdomen: Soft, nontender, nondistended Integumentary: Left lower extremity lymphedema and venous stasis dermatitis. Neuro: Normal strength, normal affect Problem List: Acute on chronic diastolic CHF exacerbation Obesity hypoventilation syndrome; Daytime somnolence Acute on chronic hypercapnic respiratory failure Metabolic encephalopathy, improved NSTEMI CAD A-fib on chronic anticoagulation CKD 3B Left foot wound with venous insufficiency Hypertension Hyperlipidemia Gout Anxiety Acute on chronic diastolic CHF exacerbation Obesity hypoventilation syndrome; Daytime somnolence Acute on chronic hypercapnic respiratory failure Metabolic encephalopathy, improved AMS secondary to hypercapnia. AMS improved. Hypercapnia secondary to noncompliance with CPAP at home. CXR (02/20): Stable central congestive changes suggesting CHF CXR (02/22): mild improvement in CHF. RLL atelectasis has developed. Moderate cardiomegaly. Recent echo from September 2024 with 50-55% EF, grade 2 diastolic dysfunction, moderate LVH. Dr. Singh, pul is following. Recommended NIV to prevent readmission Cardiology consulted continue diamox, metoprolol, hydralazine, spironolactone Continue oral prednisone (02/26-) Continue modafinil for daytime somnolence.Clinical symptoms improving. Patient prefers to go home with HH . Continue PT. NSTEMI CAD Elevated troponins secondary to demand ischemia from CHF Monitor on telemetry Cardiology is following Continue plavix, asa 81mg. f/u with cardio as outpatient A-fib on chronic anticoagulation continue home xarelto, metoprolol, amiodarone CKD 3B Continue to monitor renal function, electrolytes stable. ~baseline. Left foot wound with venous insufficiency Hypertension Hyperlipidemia Gout Anxiety continue home meds as appropriate [facility] consulted VTE: home xarelto Code: Full Dispo: Home with HH ~1 day has NIV at bedside
[2025-03-07 06:08] LABS: Hematocrit 38.2 % (36.0-45.0); Hemoglobin 12.2 g/dL (12.0-15.0); MCH 29.1 pg (27.0-35.0); MCHC 31.9 g/dL (32.0-36.0); MCV 91.0 fL (80-100); MPV 10.1 fL (7.6-11.3); RBC Red Blood Cell Count 4.20 M/uL (3.86-4.86); White Blood Count 6.00 thou/uL (4.3-10.9)
[2025-03-07 06:21] LABS: Anion Gap 6.5 mEq/L (5.0-15.0); BUN Blood Urea Nitrogen 56.0 mg/dL (7-18); Glucose Level 127.0 mg/dL (74-106); Magnesium 2.0 mg/dL (1.6-2.4); Potassium 4.5 mEq/L (3.5-5.1)
[2025-03-07] MEDS: FAMOTIDINE 20 MG TAB PO SCH (08:19)
--- NOTE | 2025-03-07 12:11 | P.PN ---
Date of Service: 03/07/25 Subjective: Feeling slightly better today breathing feels a little easier strength slowly improving Physical Exam: Gen: Alert, Oriented, NAD CV: Regular rate and rhythm, no edema Pulm: Nonlabored respirations on 2L NC, clear bilaterally Abdomen: Soft, nontender, nondistended Integumentary: Left lower extremity lymphedema and venous stasis dermatitis. Neuro: Normal strength, normal affect Problem List: Acute on chronic diastolic CHF exacerbation Obesity hypoventilation syndrome; Daytime somnolence Acute on chronic hypercapnic respiratory failure Metabolic encephalopathy, improved NSTEMI CAD A-fib on chronic anticoagulation CKD 3B Left foot wound with venous insufficiency Hypertension Hyperlipidemia Gout Anxiety Acute on chronic diastolic CHF exacerbation Obesity hypoventilation syndrome; Daytime somnolence Acute on chronic hypercapnic respiratory failure Metabolic encephalopathy, improved AMS secondary to hypercapnia. AMS improved. Hypercapnia secondary to noncompliance with CPAP at home. CXR (02/20): Stable central congestive changes suggesting CHF CXR (02/22): mild improvement in CHF. RLL atelectasis has developed. Moderate cardiomegaly. Recent echo from September 2024 with 50-55% EF, grade 2 diastolic dysfunction, m oderate LVH. Dr. Singh, pulm is following. Recommended NIV to prevent readmission Cardiology consulted continue diamox, metoprolol, hydralazine, spironolactone diamox decreased to 250 mg daily from BID BUN climbing, suspect some contraction Continue oral prednisone (02/26-) Continue modafinil for daytime somnolence.Clinical symptoms improving. Patient prefers to go home with HH. Continue PT. NSTEMI CAD Elevated troponins secondary to demand ischemia from CHF Monitor on telemetry Cardiology is following Continue plavix, asa 81mg. f/u with cardio as outpatient A-fib on chronic anticoagulation continue home xarelto, metoprolol, amiodarone CKD 3B Continue to monitor renal function, electrolytes stable. ~baseline. Left foot wound with venous insufficiency Hypertension Hyperlipidemia Gout Anxiety continue home meds as appropriate [facility] consulted VTE: home xarelto Code: Full Dispo: Home with HH ~1 day has NIV at bedside
--- NOTE | 2025-03-07 13:41 | P.PN ---
Date of Service: 02/26/25 Subjective Chart has been reviewed. Patient was hypercapnic. Patient is still very lethargic and really somnolent. She has not really come around much. However she does wake up and she eats occasionally. Oxygenating better. Head patient will be monitored in ICU today. If she has doing better with following commands and start to work with therapy that we can get her transferred to med surg. Physical Examination - Vital Signs Reviewed Physical examination General: Lethargic HEENT:Within normal limits Heart: Regular rate rhythm with no murmurs Lungs: Clear bilaterally Abdomen: Soft, nondistended, nontender, normal bowel sounds. Extremities: Left lower extremity swollen compared to the right. Skin: Left lower extremity lymphedema and venous stasis dermatitis. Neuro: Generalized weakness but patient much more awake and alert Assessment And Plan - Assessment/Plan Assessment/Plan: Obesity hypoventilation syndrome; hypercapnic respiratory failure; Daytime somnolence Continue with BiPAP as needed May try modafinil for daytime somnolence Encourage out of bed into a chair throughout the day Continue with outpatient follow-up for evaluation for GLP-1 agonist therapy Acute on chronic diastolic CHF exacerbation Status post IV Lasix then switched to oral Bumex. Patient diuresing well with IV Lasix. Continue current dose Daily weight and strict I/O's. NSTEMI CAD Troponin downtrended. Elevated troponin deemed secondary to demand ischemia from CHF Cardiology is following Status post heparin drip Xarelto resumed Continue Plavix COPD exacerbation Metabolic encephalopathy Acute metabolic encephalopathy due to hypercapnia AMS improved. Continue bronchodilators. Continue BiPAP therapy as needed Pulmonary input appreciated. Patient started on prednisone for COPD exacerbation Atrial fibrillation. Continue amiodarone and Xarelto CKD 3B. Stable. Renal function is stable with diuresis Nicotine dependence. Tobacco cessation advised Left foot wound. Venous insufficiency. Continue wound care with Vashe. Hypertension. Patient is currently normotensive Continue home medications Labetalol as needed for BP spikes Gout\hyperlipidemia\anxiety disorder\peripheral neuropathy Stable Continue home medications. DVT prophylaxis: Xarelto Discharge Plan: Home with HH
--- NOTE | 2025-03-07 13:43 | P.PN ---
Date of Service: 02/27/25 Subjective Patient's clinical symptoms are improved. Patient denies any new complaints. Clinical symptoms are Some with better but she still sleeping more than we need her to do. She needs to stay awake at work with physical therapy. Go ahead and start modafinil. Remains hypercapnic. But overall her CO2 has improved from admission. Encourage her out of bed and ambulate. Physical Examination - Vital Signs Reviewed Physical examination General: Lethargic HEENT:Within normal limits Heart: Regular rate rhythm with no murmurs Lungs: Clear bilaterally Abdomen: Soft, nondistended, nontender, normal bowel sounds. Extremities: Left lower extremity swollen compared to the right. Skin: Left lower extremity lymphedema and venous stasis dermatitis. Neuro: Generalized weakness but patient much more awake and alert Assessment And Plan - Assessment/Plan Assessment/Plan: Obesity hypoventilation syndrome; hypercapnic respiratory failure; Daytime somno lence IHencreased participation with therapy Continue with BiPAP as needed May try modafinil for daytime somnolence Encourage out of bed into a chair throughout the day Continue with outpatient follow-up for evaluation for GLP-1 agonist therapy Acute on chronic diastolic CHF exacerbation Status post IV Lasix then switched to oral Bumex. Patient diuresing well with IV Lasix. Continue current dose Daily weight and strict I/O's. NSTEMI CAD Troponin downtrended. Elevated troponin deemed secondary to demand ischemia from CHF Cardiology is following; anticoagulate S Xarelto resumed Continue Plavix COPD exacerbation Metabolic encephalopathy Acute metabolic encephalopathy due to hypercapnia AMS improved. Continue bronchodilators. Continue BiPAP therapy as needed Pulmonary input appreciated. Patient started on prednisone for COPD exacerbation Atrial fibrillation. Continue amiodarone and Xarelto CKD 3B. Stable. Renal function is stable with diuresis Nicotine dependence. Tobacco cessation advised Left foot wound. Venous insufficiency. Continue wound care with Vashe. Hypertension. Patient is currently normotensive Continue home medications Labetalol as needed for BP spikes Gout\hyperlipidemia\anxiety disorder\peripheral neuropathy Stable Continue home medications. DVT prophylaxis: Xarelto Discharge Plan: Home with HH
--- NOTE | 2025-03-07 13:54 | P.PN ---
Date of Service: 02/28/25 Subjective Repeated ABG today and more hypercapneic; will increase modafinil; will continue to encourage OOB p[articipa aretion; adjusting home meds as they may be worsening her somnolence Physical Examination - Vital Signs Reviewed Physical examination General: Still lethargic but more awake HEENT:Within normal limits Heart: Regular rate rhythm with no murmurs Lungs: Clear bilaterally Abdomen: Soft, nondistended, nontender, normal bowel sounds. Extremities: Left lower extremity swollen compared to the right. Skin: Left lower extremity lymphedema and venous stasis dermatitis. Neuro: Generalized weakness but patient much more awake and alert Assessment And Plan - Assessment/Plan Assessment/Plan: Obesity hypoventilation syndrome; hypercapnic respiratory failure; Daytime somnolence Increased participation with therapy; DC'd home meds that can increase somnolence Continue with BiPAP as needed; especially at night May try modafinil for daytime somnolence Encourage out of bed into a chair throughout the day Continue with outpatient follow-up for evaluation for GLP-1 agonist therapy Acute on chronic diastolic CHF exacerbation Continue with oral Bumex. Monitor alkalosis Daily weight and strict I/O's. NSTEMI CAD Troponin downtrended. Elevated troponin deemed secondary to demand ischemia from CHF Cardiology is following; anticoagulate S Xarelto resumed Continue Plavix COPD exacerbation Metabolic encephalopathy Acute metabolic encephalopathy due to hypercapnia AMS improved. Continue bronchodilators. Continue BiPAP therapy as needed Pulmonary input appreciated. Patient started on prednisone for COPD exacerbation Atrial fibrillation. Continue amiodarone and Xarelto CKD IIIB. Stable. Renal function is stable with diuresis Nicotine dependence. Tobacco cessation advised Left foot wound. Venous insufficiency. Continue wound care with Vashe. Hypertension. Patient is currently normotensive Continue home medications Labetalol as needed for BP spikes Gout\hyperlipidemia\anxiety disorder\peripheral neuropathy Stable Continue home medications. DVT prophylaxis: Xarelto Discharge Plan: Home with HH
[2025-03-07] MEDS ORDERED: ALBUTEROL 2.5 MG/3 ML NEB SOL NEB PRN (15:02)
[2025-03-08 04:41] LABS: Anion Gap 6.9 mEq/L (5.0-15.0); BUN Blood Urea Nitrogen 54.0 mg/dL (7-18); Glucose Level 119.0 mg/dL (74-106); Magnesium 2.1 mg/dL (1.6-2.4); Potassium 4.9 mEq/L (3.5-5.1)
[2025-03-08] MEDS: acetaZOLAMIDE 250 MG TAB PO SCH (08:18)
[2025-03-08 08:19] VITALS: BP 139/83; TEMP 98.3
--- NOTE | 2025-03-08 09:30 | P.DS ---
Admission Date: 02/20/25 Discharge Date: 03/08/25 Disposition: DC HOME/HOME HEALTH CARE Reason for Admission: SOB, cough Consultations: Cardiology - Dr. Burns Pulmonology - Dr. Singh Brief History of Present Illness: 70yo F, PMH: COPD, atrial fibrillation, Asthma, CKD, CHF, Gout, hypertension, venous insufficiency, left foot wound, nicotine dependence Patient presents with complaint of shortness of breath that has been ongoing for the past 2 weeks. Patient also reports left lower extremity pain rated as 8/10 in severity and described as aching in quality. Patient reported associated signs and symptoms of cough. Patient denies any other signs and symptoms. Symptoms are aggravated or relieved by nothing. Patient decided to present to the hospital due to worsening symptoms. Hospital Course: Problem List: Acute on chronic diastolic CHF exacerbation Obesity hypoventilation syndrome; Daytime somnolence Acute on chronic hypercapnic respiratory failure Metabolic encephalopathy, improved NSTEMI CAD A-fib on chronic anticoagulation CKD 3B Left foot wound with venous insufficiency Hypertension Hyperlipidemia Gout Anxiety Physician discharge instructions: Patient presented with worsening shortness of breath, cough, confusion secondary to acute on chronic diastolic CHF exacerbation further complicated by obesity hypoventilation syndrome and noncompliance with CPAP at home. Confusion secondary to hypercapnia which improved with BiPAP over time. Chest xray on admission noted findings consistent with CHF. Patient was started on IV lasix in addition to steroids and had improvement of her symptoms. Lasix was switched to diamox and spironolactone per pulmonology and patient continued to improve daily. Dr. Singh (pul) felt patient would benefit from home NIV to help prevent further readmissions and will be further set up on discharge. Patient was feeling better, breathing more comfortably, cough improved and was deemed stable for discharge. Patient was also started on modafinil for daytime somnolence, to be continued upon discharge. Troponin's were noted to be mildly elevated but trended flat. Elevated troponins secondary to demand ischemia in the setting of CHF exacerbation. Cardiology was consulted and recommended outpatient follow up in a few weeks for further management. No findings to warrant further inpatient evaluation. Medications: Diamox 250 mg daily instead of bumex continue other home medications as previously prescribed Follow up: PCP 3-5 days Pulmonology in 2-4 weeks Cardiology in 2-4 weeks Wound care Please call to schedule / confirm appointments Continue home health Clean with vashe. Apply Santyl, gauze, ABD and adams wrap. Physical Exam: Gen: Alert, Oriented, NAD CV: Regular rate and rhythm, no edema Pulm: Nonlabored respirations, clear bilaterally Abdomen: Soft, nontender, nondistended Integumentary: Left lower extremity lymphedema and venous stasis dermatitis. Neuro: Normal strength, normal affect Vital Signs/Physical Exam: Temp Pulse Resp BP Pulse Ox 98.3 F 67 12 139/83 100 03/08/25 08:00 03/08/25 08:18 03/08/25 08:00 03/08/25 08:18 03/08/25 08:00 Laboratory Data at Discharge: WBC 6.00 thou/uL (4.3-10.9) 03/07/25 05:48 Hgb 12.2 g/dL (12.0-15.0) 03/07/25 05:48 Hct 38.2 % (36.0-45.0) 03/07/25 05:48 Plt Count 181 thou/uL (152-406) 03/07/25 05:48 PT 16.2 SECONDS (10-13.0) H 02/21/25 04:45 INR 1.45 02/21/25 04:45 APTT 76.8 SECONDS (27.2-37.4) H 02/22/25 13:16 Sodium 134 mEq/L (136-145) L 03/08/25 04:07 Potassium 4.9 mEq/L (3.5-5.1) 03/08/25 04:07 BUN 54 mg/dL (7-18) H 03/08/25 04:07 Creatinine 1.20 mg/dL (0.55-1.02) H 03/08/25 04:07 Glucose 119 mg/dL (74-106) H 03/08/25 04:07 Phosphorus 3.3 mg/dL (2.5-4.9) 02/24/25 08:13 Magnesium 2.1 mg/dL (1.6-2.4) 03/08/25 04:07 Total Bilirubin 0.4 mg/dL (0.2-1.0) 03/03/25 05:24 AST < 10 U/L (15-37) L 03/03/25 05:24 ALT < 14 U/L (13-56) 03/03/25 05:24 Alkaline Phosphatase 58 U/L (45-117) 03/03/25 05:24 Home Medications: Topiramate 50 mg PO BID #60 tab 12/30/23 hydrOXYzine HCL [Atarax] 50 mg PO TID PRN #30 tab 12/30/23 Sertraline [Zoloft*] 50 mg PO BEDTIME 09/20/24 Albuterol Sulfate 1.25 mg IH Q6HP PRN 11/21/24 Amiodarone HCl [Cordarone*] 200 mg PO DAILY 11/21/24 Amitriptyline [Elavil*] 50 mg PO BEDTIME 11/21/24 Atorvastatin Calcium 20 mg PO DAILY 11/21/24 Collagenase [Santyl Ointment*] 30 appl TOP DAILY 11/21/24 Hydralazine HCl 50 mg PO TID PRN 11/21/24 Mupirocin Oint [Bactroban 2% Ointment*] 1 [place] TOP BID 11/21/24 Rivaroxaban [Xarelto*] 20 mg PO DAILY 11/21/24 SUMAtriptan succinate [Sumatriptan Succinate] 1 tab PO BID 11/21/24 Silver Sulfadiazine [Silvadene 1% Cream] 1 [place] TOP DAILY 11/21/24 Vitamin B Complex [B Complex] 1 tab PO DAILY 11/21/24 Zinc Sulfate [Zinc Sulfate*] 1 cap PO DAILY 11/21/24 Metoprolol Tartrate [Lopressor*] 50 mg PO BID 30 Days #60 tab 11/30/24 Spironolactone [Aldactone*] 25 mg PO BID 02/20/25 cloNIDine HCL [Clonidine HCl] 0.1 mg PO DAILY PRN 02/20/25 acetaZOLAMIDE [Acetazolamide] 250 mg PO DAILY 30 Days #30 tab 03/08/25 New Medications: acetaZOLAMIDE [Acetazolamide] 250 mg PO DAILY 30 Days #30 tab Physician Discharge Instructions: Physician discharge instructions: Patient presented with worsening shortness of breath, cough, confusion secondary to acute on chronic diastolic CHF exacerbation further complicated by obesity hypoventilation syndrome and noncompliance with CPAP at home. Confusion secondary to hypercapnia which improved with BiPAP over time. Chest xray on admission noted findings consistent with CHF. Patient was started on IV lasix in addition to steroids and had improvement of her symptoms. Lasix was switched to diamox and spironolactone per pulmonology and patient continued to improve daily. Dr. Singh (pulm) felt patient would benefit from home NIV to help prevent further readmissions and will be further set up on discharge. Patient was feeling better, breathing more comfortably, cough improved and was deemed stable for discharge. Patient was also started on modafinil for daytime somnolence, to be continued upon discharge. Troponin's were noted to be mildly elevated but trended flat. Elevated troponins secondary to demand ischemia in the setting of CHF exacerbation. Cardiology was consulted and recommended outpatient follow up in a few weeks for further management. No findings to warrant further inpatient evaluation. Medications: Diamox 250 mg daily instead of bumex continue other homem edications as previously prescribed Follow up: PCP 3-5 days Pulmonology in 2-4 weeks Cardiology in 2-4 weeks Wound care Please call to schedule / confirm appointments Continue home health Clean with vashe. Apply Santkirt, gaghanshyam, ABD and adams wrap. Followup: Mani Singh MD [ACTIVE - CAN ADMIT] - 1-2 Weeks Billy Burns MD [ACTIVE - CAN ADMIT] - 1-2 Weeks Latoya Davenport FNP [Primary Care Provider] - 1-2 Weeks Time spent managing pt's care (in minutes): 45
[2025-03-08 13:10] VITALS: O2SAT 100
== END 2025-03-08 10:55 | disposition home health service (06) | DRG 280 ==
LOC: ER 14:11 → ERHOLD 17:19 → 2ND 19:12 → 3RD-ICU 02-23 18:36 → 2ND 02-26 17:03
PROVIDERS: ADMIT Family Medicine; ATTEND Hospitalist
PROC: 5A09557 Assistance with Respiratory Ventilation, Greater than 96 Consecutive Hours, Continuous Positive Airway Pressure (ICD-10-PCS; 2025-02-20)
PROC: 4A033R1 Measurement of Arterial Saturation, Peripheral, Percutaneous Approach (ICD-10-PCS; principal; 2025-02-23)
DX: I13.0 Hypertensive heart and chronic kidney disease with heart failure and stage 1 through stage 4 chronic kidney disease, or unspecified chronic kidney disease (principal); G93.41 Metabolic encephalopathy; I21.A1 Myocardial infarction type 2; I50.33 Acute on chronic diastolic (congestive) heart failure; J96.21 Acute and chronic respiratory failure with hypoxia; J96.22 Acute and chronic respiratory failure with hypercapnia; E66.2 Morbid (severe) obesity with alveolar hypoventilation; Z68.41 Body mass index [BMI] 40.0-44.9, adult; J44.1 Chronic obstructive pulmonary disease with (acute) exacerbation; N18.32 Chronic kidney disease, stage 3b; E78.5 Hyperlipidemia, unspecified; M10.9 Gout, unspecified; I48.91 Unspecified atrial fibrillation; G62.9 Polyneuropathy, unspecified; F41.9 Anxiety disorder, unspecified; I87.2 Venous insufficiency (chronic) (peripheral); I25.10 Atherosclerotic heart disease of native coronary artery without angina pectoris; F17.200 Nicotine dependence, unspecified, uncomplicated; Z56.0 Unemployment, unspecified; Z59.82 Transportation insecurity; Z59.71 Insufficient health insurance coverage; Z11.52 Encounter for screening for COVID-19; Z99.89 Dependence on other enabling machines and devices; Z79.899 Other long term (current) drug therapy; Z91.199 Patient's noncompliance with other medical treatment and regimen due to unspecified reason
CPT/HCPCS: 36415; 36600; 71045; 80048; 80053; 82140; 82803; 82805; 83605; 83735; 83880; 84100; 84439; 84443; 84484; 85025; 85027; 85610; 85730; 87040; 87428; 93005; 94640; 94660; 94760; 96365; 96375; 97116; 97161; 97165; 97530; 99285; J0456; J1644; J1650; J1938; J2405; J2919; J7030; J7050; J7512; J7605; J7613; J7644

== ENCOUNTER 2025-04-14 16:22 | Inpatient (IN) | payer OTHER, BC ==
[2025-04-14 16:43] LABS: Absolute Lymphocytes (CBC) 1.0 K/uL (0.7-4.9); Hematocrit 34.8 % (36.0-45.0); Hemoglobin 11.0 g/dL (12.0-15.0); MCH 29.1 pg (27.0-35.0); MCHC 31.6 g/dL (32.0-36.0); MCV 92.1 fL (80-100); MPV 9.2 fL (7.6-11.3); Nucleated RBC Absolute Count 0.0 (0-0); Nucleated Red Blood Cells % 0.4 % (0-0); RBC Red Blood Cell Count 3.78 M/uL (3.86-4.86); White Blood Count 5.20 thou/uL (4.3-10.9)
[2025-04-14] MEDS ORDERED: FUROSEMIDE 40 MG/4 ML VIAL ONE (16:54)
[2025-04-14 17:01] LABS: PT Prothrombin Time 14.2 SECONDS (10-13.0); Protime INR 1.27
[2025-04-14 17:27] LABS: ALT/SGPT 15.0 U/L (13-56); AST/SGOT 12.0 U/L (15-37); Albumin 3.0 g/dL (3.4-5.0); Albumin/Globulin Ratio 0.7 (1.1-1.8); Alkaline Phosphatase 84.0 U/L (45-117); Anion Gap 5.0 mEq/L (5.0-15.0); BUN Blood Urea Nitrogen 13.0 mg/dL (7-18); Bilirubin Indirect, Calculated 0.2 mg/dL (0.2-0.8); Globulin 4.2 g/dL (2.3-3.5); Glucose Level 110.0 mg/dL (74-106); Magnesium 1.6 mg/dL (1.6-2.4); NT PRO-BNP 6616.0 pg/mL (<125); Potassium 3.0 mEq/L (3.5-5.1)
[2025-04-14 17:33] LABS: Troponin High Sensitivity 213.8 pg/mL (<58.9)
[2025-04-14] MEDS ORDERED: POTASSIUM 25 MEQ EFFERV TAB ONE (17:39)
--- NOTE | 2025-04-14 17:57 | RAD REPORT ---
Procedure: Chest Single View HISTORY: Shortness of breath COMPARISON: February 2025 FINDINGS: The lungs appear clear of acute infiltrate. Upper lobe vessels are prominent indicative of pulmonary venous hypertension No significant pleural effusion noted. The heart is markedly enlarged.
--- NOTE | 2025-04-14 17:59 | ER ---
Nurse's Notes [facility] Name: Mellisa Patterson Age: 70 yrs Sex: Female : 1955 Arrival Date: 04/14/2025 Time: 16:22 Bed 8 Private MD: Diagnosis: Weakness;Acute on chronic systolic (congestive) heart failure;Morbid (severe) obesity with alveolar hypoventilation;Elevated troponin;Hypokalemia Presentation: 04/14 16:40 Chief complaint: EMS states: reports increased swelling from lymphedema in legs. nh2 16:40 Method Of Arrival: EMS nh2 16:40 Coronavirus screen: Client denies travel out of the [place] in the last 14 days. Ebola nh2 Screen: Patient denies travel to an Ebola-affected area in the 21 days before illness onset. No symptoms or risks identified at this time. Initial Sepsis Screen: Does the patient meet any 2 criteria? No. Patient's initial sepsis screen is negative. Does the patient have a suspected source of infection? No. Patient's initial sepsis screen is negative. Risk Assessment: Do you want to hurt yourself or someone else? Patient reports no desire to harm self or others. Onset of symptoms was April 14, 2025. 16:40 Acuity: JESI 3 nh2 Triage Assessment: 16:40 General: Appears in no apparent distress. Behavior is calm, cooperative, appropriate nh2 for age. Pain: Denies pain. EENT: No signs and/or symptoms were reported regarding the EENT system. Neuro: Level of Consciousness is awake, alert, obeys commands, Oriented to person, place, time, situation, Appropriate for age Denies dizziness, headache. Cardiovascular: Heart tones S1 S2 present Patient's skin is warm and dry. Rhythm is sinus rhythm pair PVCs. Respiratory: Reports shortness of breath on exertion Airway is patent Trachea midline Respiratory effort is even, unlabored, Breath sounds are clear bilaterally. GI: Abdomen is round distended, Patient currently denies nausea, vomiting. : No signs and/or symptoms were reported regarding the genitourinary system. Derm: Skin is pink, warm \T\ dry. Wound noted Left ankle Wound is reports having a healing wound that wraps around the L ankle that has been healing well over the last few weeks. 16:40 Musculoskeletal: Circulation, motion, and sensation intact. Range of motion: intact in nh2 all extremities. Historical: - Allergies: 17:08 insect venom; nh2 - PMHx: 17:08 Asthma; Atrial Fib; Bronchitis; CHF; CKD; stage 5; Gout; Hypertension; venous nh2 insufficiency; wounds; - PSHx: 17:08 section; nh2 - Immunization history:: Adult Immunizations not up to date. - Infectious Disease History:: Denies. - Social history:: Smoking status: Patient reports the use of cigarette tobacco products, smokes one-half pack cigarettes per day. Screenin:[address] [facility] ED Fall Risk Assessment (Adult) History of falling in the last 3 months, nh2 including since admission No falls in past 3 months (0 pts) Confusion or Disorientation No (0 pts) Intoxicated or Sedated No (0 pts) Impaired Gait No (0 pts) Mobility Assist Device Used No (0 pt) Altered Elimination No (0 pt) Score/Fall Risk Level 0 - 2 = Low Risk Oriented to surroundings, Maintained a safe environment, Educated pt \T\ family on fall prevention, incl call for assistance when getting out of bed, Assessed \T\ reinforced patient's understanding of fall precautions. Abuse screen: Denies threats or abuse. Denies injuries from another. Nutritional screening: No deficits noted. Tuberculosis screening: No symptoms or risk factors identified. Assessment: 17:00 Reassessment: see triage. nh2 19:25 General: Appears in no apparent distress. Behavior is calm, cooperative. Neuro: Level tb4 of Consciousness is awake, alert, obeys commands, Oriented to person, place, time, situation, Moves all extremities. Full function Gait is steady, Speech is normal, Facial symmetry appears normal. Respiratory: Airway is patent Respiratory effort is even, unlabored. GI: No deficits noted. No signs and/or symptoms were reported involving the gastrointestinal system. : No deficits noted. No signs and/or symptoms were reported regarding the genitourinary system. Derm: Skin is intact, is healthy with good turgor, Skin is dry, Skin is normal. Musculoskeletal: Circulation, motion, and sensation intact. Range of motion: intact in all extremities. Vital Signs: 16:40 BP 137 / 87; Pulse 92; Resp 20; Temp 98.8(O); Pulse Ox 89% on R/A; Weight 127.19 kg nh2 (M); Height 5 ft. 7 in. ; 16:40 BP 124 / 91; Pulse 96; Resp 21; Pulse Ox 95% on 3 lpm NC; nh2 17:40 BP 137 / 113; Pulse 96; Resp 18; Pulse Ox 96% on 3 lpm NC; nh2 18:40 BP 134 / 98; Pulse 97; Resp 19; Pulse Ox 96% on 3 lpm NC; aa5 19:24 BP 139 / 98; Pulse 96; Resp 18; Pulse Ox 97% ; tb4 16:40 Body Mass Index 43.92 (127.19 kg, 170.18 cm) nh2 ED Course: 16:23 Patient arrived in ED. sb4 16:24 Dea Rosado PA-C is PHCP. sb4 16:24 Nettie Garza MD is Attending Physician. sb4 16:40 Arm band placed on right wrist. nh2 16:53 Andreas Dorman Jr, RN is Primary Nurse. nh2 17:00 Patient has correct armband on for positive identification. Bed in low position. Call nh2 light in reach. Side rails up X 1. Provided Education on: using call light for assistance. 17:00 Inserted saline lock: 20 gauge in right antecubital area, using aseptic technique. nh2 Blood collected. Flushed with 10 mL NS. 17:00 Oxygen administration via nasal cannula \T\ 3L/min. nh2 17:08 Triage completed. nh2 17:14 XRAY Chest (1 view) In Process Unspecified. EDMS 17:58 Daniel Martins, JOSE LUIS is Hospitalizing Provider. sb4 Administered Medications: 17:00 Drug: Furosemide IVP 40 mg IVP once; give over 2 minutes Route: IVP; Site: right [facility] antecubital; 04/15 17:30 Follow up: Response: No adverse reaction nh2 04/14 17:40 Drug: Potassium PO Effervescent Tablet 50 mEq PO once; dissolve in 4 ounces of water or nh2 juice Route: PO; 18:00 Follow up: Response: No adverse reaction nh2 Medication: 17:00 VIS not applicable for this client. nh2 Outcome: 17:59 Decision to Hospitalize by Provider. sb4 20:42 Patient left the ED. tb4 Signatures: Dispatcher [employer] EDNV Maryan Lowe RN RN aa5 Dea Rosado PA-C PA-C sb4 Andreas Dorman Jr, RN RN [facility] Rupali Rosado RN RN tb4 Corrections: (The following items were deleted from the chart) 17:58 16:40 BP 137 / 87; Pulse 92bpm; Resp 20bpm; Pulse Ox 99% 3 lpm Nasal Cannula; Temp nh2 98.8F Oral; 115.21 kg; Height 5 ft. 7 in.; BMI: 39.7; nh2
--- NOTE | 2025-04-14 17:59 | EDPHYS ---
Physician Documentation [facility] Name: Mellisa Patterson Age: 70 yrs Sex: Female : 1955 Arrival Date: 04/14/2025 Time: 16:22 Bed 8 Private MD: ED Physician Nettie Garza HPI: 04/14 16:31 This 70 yrs old Black Female presents to ER via Unassigned with complaints of lower sb4 extremity swelling. 16:32 Patient reports with worsening lower extremity swelling as well as shortness of breath sb4 over the past few weeks. States that she can barely ambulate at this point. She does report significant medical history -morbid obesity, lymphedema, congestive heart failure, atrial fibrillation, venous insufficiency. Historical: - Allergies: 17:08 insect venom; nh2 - PMHx: 17:08 Asthma; Atrial Fib; Bronchitis; CHF; CKD; stage 5; Gout; Hypertension; venous nh2 insufficiency; wounds; - PSHx: 17:08 section; nh2 - Immunization history:: Adult Immunizations not up to date. - Infectious Disease History:: Denies. - Social history:: Smoking status: Patient reports the use of cigarette tobacco products, smokes one-half pack cigarettes per day. ROS: 16:32 Constitutional: Negative for fever, chills, and weight loss, sb4 16:32 Cardiovascular: Positive for edema, 16:32 Neuro: Positive for weakness, 16:32 All other systems are negative, Exam: 16:33 Head/Face: Normocephalic, atraumatic. Eyes: Extra-ocular motions intact. Periorbital sb4 areas with no swelling, redness, or edema. ENT: Mucous membranes moist. Respiratory: No increased work of breathing, no retractions or nasal flaring. Abdomen/GI: Soft, non-tender, no distension. 16:33 Constitutional: The patient appears in no acute distress, alert, awake, obese, 16:33 Cardiovascular: Edema: 2+ edema to level of left lower thigh and right lower thigh, 16:33 Skin: Appearance: Moisture: dry, 16:57 Skin: Wound recheck: Venous stasis ulcer circumferential left ankle, healing, sb4 Vital Signs: 16:40 BP 137 / 87; Pulse 92; Resp 20; Temp 98.8(O); Pulse Ox 89% on R/A; Weight 127.19 kg nh2 (M); Height 5 ft. 7 in. ; 16:40 BP 124 / 91; Pulse 96; Resp 21; Pulse Ox 95% on 3 lpm NC; nh2 17:40 BP 137 / 113; Pulse 96; Resp 18; Pulse Ox 96% on 3 lpm NC; nh2 18:40 BP 134 / 98; Pulse 97; Resp 19; Pulse Ox 96% on 3 lpm NC; aa5 19:24 BP 139 / 98; Pulse 96; Resp 18; Pulse Ox 97% ; tb4 16:40 Body Mass Index 43.92 (127.19 kg, 170.18 cm) nh2 MDM: 16:24 Medical Screening Exam initiated sb4 17:37 Independent interpretation of the following test(s) in the Emergency Department X-Ray: sb4 My interpretation is Chest x-ray images -cardiomegaly and pulmonary edema that do not appear significantly changed from prior. 17:59 Differential Diagnosis CHF, COPD, lymphadema. Data reviewed: vital signs, nurses notes, sb4 EMS record, lab test result(s), EKG, radiologic studies, and as a result, I will admit patient. Consideration of Admission/Observation Patient was admitted/placed on observation. Care significantly affected by the following chronic conditions: Hypertension, Congestive Heart Failure, Chronic Obstructive Pulmonary Disease, Obesity. Counseling: I had a detailed discussion with the patient and/or guardian regarding the historical points, exam findings, and any diagnostic results supporting the discharge/admit diagnosis, the presence of at least one elevated blood pressure reading (>120/80) during this emergency department visit, lab results, radiology results, the need for further work-up and treatment in the hospital. 04/14 16:24 Order name: Basic Metabolic Panel; Complete Time: 17:33 sb4 04/14 16:24 Order name: CBC with Diff; Complete Time: 17:00 sb4 04/14 16:24 Order name: LFT's; Complete Time: 17:33 sb4 04/14 16:24 Order name: Magnesium; Complete Time: 17:33 sb4 04/14 16:24 Order name: NT PRO-BNP; Complete Time: 17:33 sb4 04/14 16:24 Order name: PT-INR; Complete Time: 17:01 sb4 04/14 16:24 Order name: Troponin HS; Complete Time: 17:33 sb4 04/14 19:48 Order name: CBC with Automated Diff EDMS 04/14 19:48 Order name: CBC with Automated Diff; Complete Time: 08:03 EDMS 04/14 19:48 Order name: CBC with Automated Diff EDMS 04/14 19:48 Order name: Comprehensive Metabolic Panel EDMS 04/14 19:48 Order name: Comprehensive Metabolic Panel; Complete Time: 08:03 EDMS 04/14 19:48 Order name: Comprehensive Metabolic Panel EDMS 04/14 19:48 Order name: Lipid Profile EDMS 04/14 19:48 Order name: Lipid Profile; Complete Time: 08:03 EDMS 04/14 19:48 Order name: Magnesium EDMS 04/14 19:48 Order name: Magnesium; Complete Time: 08:03 EDMS 04/14 19:48 Order name: Magnesium EDMS 04/14 19:48 Order name: NT PRO-BNP EDMS 04/14 19:48 Order name: NT PRO-BNP; Complete Time: 08:03 EDMS 04/14 19:48 Order name: NT PRO-BNP EDMS 04/14 19:48 Order name: NT PRO-BNP EDMS 04/14 19:48 Order name: Phosphorus EDMS 04/14 19:48 Order name: Phosphorus; Complete Time: 08:03 EDMS 04/14 19:48 Order name: Phosphorus EDMS 04/14 19:48 Order name: Troponin High Sensitivity EDMS 04/14 19:48 Order name: Troponin High Sensitivity; Complete Time: 08:03 EDMS 04/14 19:48 Order name: Troponin High Sensitivity; Complete Time: 08:03 EDMS 04/14 19:48 Order name: Troponin High Sensitivity EDMS 04/14 19:55 Order name: Wound Culture; Complete Time: 08:03 EDMS 04/14 16:24 Order name: XRAY Chest (1 view); Complete Time: 17:57 sb4 04/14 19:19 Order name: Extremity Venous Uni Ltd; Complete Time: 08:03 EDMS 04/14 19:50 Order name: Echo with Doppler EDMS 04/14 19:50 Order name: Echo with Doppler EDMS 04/14 19:48 Order name: EKG Electrocardiogram EDMS 04/14 19:48 Order name: EKG Electrocardiogram EDMS 04/14 19:48 Order name: EKG Electrocardiogram EDMS 04/14 19:55 Order name: [facility] 04/14 16:24 Order name: Cardiac monitoring; Complete Time: 16:51 sb4 04/14 16:24 Order name: EKG - Nurse/Tech; Complete Time: 16:51 sb4 04/14 16:24 Order name: IV Saline Lock; Complete Time: 16:51 sb4 04/14 16:24 Order name: Labs collected and sent; Complete Time: 16:51 sb4 04/14 16:24 Order name: O2 Per Protocol; Complete Time: 16:51 sb4 04/14 16:24 Order name: O2 Sat Monitoring; Complete Time: 16:51 sb4 EC:50 Rate is 92 beats/min. Rhythm is regular, Sinus Rhythm with Unifocal PVCs. TX interval sb4 is prolonged at 204 msec. QRS interval is normal at 116 msec. QT interval is normal at 372 msec. No Q waves. Clinical impression: No evidence of ischemia. Interpreted by me. Reviewed by me. Administered Medications: 17:00 Drug: Furosemide IVP 40 mg IVP once; give over 2 minutes Route: IVP; Site: right nh2 antecubital; 04/15 17:30 Follow up: Response: No adverse reaction [facility] 04/14 17:40 Drug: Potassium PO Effervescent Tablet 50 mEq PO once; dissolve in 4 ounces of water or nh2 juice Route: PO; 18:00 Follow up: Response: No adverse reaction nh2 Disposition Summary: 04/14/25 17:59 Hospitalization Ordered Notes: Hospitalization Status: Inpatient Admission sb4 Provider: Daniel Martins [facility] sb4 Condition: Fair sb4 Problem: new sb4 Symptoms: are unchanged sb4 Bed/Room Type: Standard sb4 Room Assignment: 230(04/14/25 19:13) vk Diagnosis - Weakness sb4 - Acute on chronic systolic (congestive) heart failure sb4 - Morbid (severe) obesity with alveolar hypoventilation sb4 - Elevated troponin sb4 - Hypokalemia sb4 Forms: - Medication Reconciliation Form sb4 - SBAR form sb4 - Leadership Thank You Letter sb4 Signatures: Dispatcher [employer] Dea Killian PA-C PA-C sb4 Karly Pickett Jr, Noel, RN RN nh2 Corrections: (The following items were deleted from the chart) 16:24 16:24 BASIC METABOLIC PANEL+C.LAB.BRZ ordered. EDMS EDMS 16:24 16:24 CBC+H.LAB.BRZ ordered. EDMS EDMS 16:24 16:24 HEPATIC FUNCTION+C.LAB.BRZ ordered. EDMS EDMS 16:24 16:24 MAGNESIUM+C.LAB.BRZ ordered. EDMS EDMS 16:24 16:24 PROBNP+C.LAB.BRZ ordered. EDMS EDMS 16:24 16:24 PROTIME (+INR)+COAG.LAB.BRZ ordered. EDMS EDMS 16:24 16:24 Troponin High Sensitivity+C.LAB.BRZ ordered. EDMS EDMS 16:24 16:24 Chest Single View+RAD.RAD.BRZ ordered. EDMS EDMS 17:36 16:57 Skin: Wound recheck: Venous ulcer circumferential left ankle, healing, sb4 sb4 19:13 17:59 sb4 vk
[2025-04-14] MEDS ORDERED: ONDANSETRON 4 MG/2 ML VIAL IV PRN (19:42)
[2025-04-14] MEDS ORDERED: ALBUTEROL 2.5 MG/3 ML NEB SOL NEB PRN (19:42)
--- NOTE | 2025-04-14 19:54 | P.HP ---
Certification for Inpatient Patient admitted to: Inpatient With expected LOS: >2 Midnights Patient will require the following post-hospital care: None Practitioner: I am a practitioner with admitting privileges, knowledge of patient current condition, hospital course, and medical plan of care. Services: Services provided to patient in accordance with Admission requirements found in Title 42 Section 412.3 of the Code of Federal Regulations Patient History Date of Service: 04/15/25 Reason for admission: Decompensated CHF exacerbation, chronic infected wound left leg History of Present Illness: Patient is a [id number] female past medical history of asthma, atrial fibrillation, bronchitis, CHF, chronic kidney disease stage V, gout, hypertension, venous insufficiency, with chronic wound left foot. Patient presents to the ER today complaining of worsening edema to her lower extremities but more profound to her left leg, with increased pain mostly to her left leg. Patient also states that her wound is infected with malodorous, and purulent drainage. Denies of chest pain, shortness of breath, fever or chills, nausea or vomiting, complaint of generalized body weakness, excessive buildup of fluid to her lower extremities making it difficult for her to ambulate. On admission assessment, patient endorses pain to her left leg, bilateral lower extremities edema, bilateral coarse scattered crackles both lungs, and oxygen dependent 3 L. Patient initial troponin to 213.8, BNP 6616, denies of any chest pain at this time, EKG with no ST elevation. It appears patient elevated troponin may be all related to demand and supply. Allergies insect venom Adverse Reaction (Verified 12/28/23 22:22) Anaphylaxis Home Medications: Topiramate 50 mg PO BID #60 tab 12/30/23 hydrOXYzine HCL [Atarax] 50 mg PO TID PRN #30 tab 12/30/23 Sertraline [Zoloft*] 50 mg PO BEDTIME 09/20/24 Albuterol Sulfate 1.25 mg IH Q6HP PRN 11/21/24 Amiodarone HCl [Cordarone*] 200 mg PO DAILY 11/21/24 Amitriptyline [Elavil*] 50 mg PO BEDTIME 11/21/24 Atorvastatin Calcium 20 mg PO DAILY 11/21/24 Collagenase [Santyl Ointment*] 30 appl TOP DAILY 11/21/24 Hydralazine HCl 50 mg PO TID PRN 11/21/24 Mupirocin Oint [Bactroban 2% Ointment*] 1 [place] TOP BID 11/21/24 Rivaroxaban [Xarelto*] 20 mg PO DAILY 11/21/24 SUMAtriptan succinate [Sumatriptan Succinate] 1 tab PO BID 11/21/24 Silver Sulfadiazine [Silvadene 1% Cream] 1 [place] TOP DAILY 11/21/24 Vitamin B Complex [B Complex] 1 tab PO DAILY 11/21/24 Zinc Sulfate [Zinc Sulfate*] 1 cap PO DAILY 11/21/24 Metoprolol Tartrate [Lopressor*] 50 mg PO BID 30 Days #60 tab 11/30/24 Spironolactone [Aldactone*] 25 mg PO BID 02/20/25 cloNIDine HCL [Clonidine HCl] 0.1 mg PO DAILY PRN 02/20/25 acetaZOLAMIDE [Acetazolamide] 250 mg PO DAILY 30 Days #30 tab 03/08/25 allopurinoL [Zyloprim*] 300 mg PO DAILY tab 03/08/25 - Past Medical/Surgical History Diabetic: No -: Obstructive sleep apnea -: HTN -: CHFdiastolic -: Gout -: Venous insufficiency -: Tobacco abuse -: Morbid obesity -: Atrial flutter -: Anterior communicating artery aneurysm4 mm -: Focal moderate M1 stenosis -: CKD followed by Dr. Herrera/Mary -: Chronic warm left foot secondary to venous insufficiency -: Skin graft -: x2 -: vein removal on R leg (2014) Psychosocial/ Personal History: Lives at home with family - Family History Mother -: Diabetes Notes: Alzheimer's Father -: Heart disease, Stroke Brother -: Heart disease, Diabetes - Social History Alcohol use: No CD- Drugs: No Caffeine use: Yes Place of Residence: Home Review of Systems 10-point ROS is otherwise unremarkable General: Other (Complaining of increased pain to her left leg with edema) Cardiovascular: Edema (Lower extremities, and pain left leg.) Integumentary: Other (Infected chronic wound left foot.) Physical Examination - Physical Exam General: Alert, In no apparent distress, Oriented x3, Cooperative HEENT: Atraumatic, Normocephalic, PERRLA, Mucous membr. moist/pink, Sclerae nonicteric Neck: Supple, 2+ carotid pulse no bruit, JVD not distended, No Thyromegaly, No LAD, Without JVD or thyroid abnormality Respiratory: Clear to auscultation bilaterally, Normal air movement Cardiovascular: No edema, Normal S1 S2, No gallops, No rubs, No murmurs Capillary refill: <2 Seconds Gastrointestinal: Normal bowel sounds, Soft and benign, Non-distended, No ascites, No tenderness, No masses, No rebound, No guarding Musculoskeletal: Tenderness (Mostly left leg.) Integumentary: No rashes, No cyanosis, Other (Chronic wound to left foot, infected wound malodorous.) Neurological: Normal speech, Normal strength at 5/5 x4 extr, Normal tone, Sensation intact, Cranial nerves 3-12 intact, Normal reflexes 2+, Normal affect Lymphatics: No axilla or inguinal lymphadenopathy - Studies Laboratory Data (last 24 hrs) 04/14/25 04/14/25 04/14/25 16:35 16:35 16:35 WBC 5.20 Hgb 11.0 L Hct 34.8 L Plt Count 159 PT 14.2 H INR 1.27 Sodium 142 Potassium 3.0 L BUN 13 Creatinine 1.00 Glucose 110 H Magnesium 1.6 Total Bilirubin 0.5 AST 12 L ALT 15 Alkaline Phosphatase 84 Female Exam - Breasts Breasts: Normal configuration, Normal contours, Symmetrical Assessment and Plan - Plan Patient admitted inpatient with diagnosis of decompensated CHF exacerbation, chronic infected wound left foot, generalized body weakness. Patient wound culture positive for gram-positive cocci. (1)Decompensated CHF. Patient received initial dose of Lasix 40 mg IV in ER. -Order Lasix 40 mg IV twice daily. -Order echocardiogram. -Consult hand spring repairer helper. -Order one-time dose of albumin 50 g IV. Patient appears third spacing, with low albumin. -O2 3 L titrate to maintain patient O2 saturation above 92%. - Consult physical therapy. -Daily weight. - DuoNeb nebulizer as needed every 6 hours. (2)Chronic and infected wound left foot/pain left leg. Patient states her wound now has a foul odor, purulent drainage. Patient also complaining of severe pain to her left leg. -Ordered stat left lower extremity ultrasound venous to rule out DVT. Impression: No evidence of deep venous thrombosis involving the left lower extremity. -Order for wound culture. -Consult wound care team. -Order for nursing to clean patient wound with NS, apply wet-to-dry Betadine solution, cover with 4 x 4 wrap with Kerlix on admission and daily. -Vancomycin 2 g IV daily. Patient wound culture positive for gram-positive cocci. (3) DVT prophylaxis. -Lovenox 40 mg subcu daily. (4) Home medications to be resumed when reconciled. (5)Explained the entire treatment plan to the patient, solicited questions answered and voiced understanding. Discharge Plan: Home Plan to discharge in: Greater than 2 days - Advance Directives Does patient have a Living Will: No Does patient have a Durable POA for Healthcare: No - Code Status/Comfort Care Code Status Assessed: Yes Code Status: Full Code Critical Care: No Time Spent Managing Pts Care (In Minutes): 55
--- NOTE | 2025-04-14 20:28 | RAD REPORT ---
EXAM:Extremity Venous Uni Ltd HISTORY: Left leg pain TECHNIQUE: Sonographic evaluation left lower extremity performed.Grayscale, color and spectral analys is performed on all vessels COMPARISON: 2022. FINDINGS: Suboptimal evaluation distal left superficial femoral vein secondary to body habitus. Otherwise, the left common femoral, superficial femoral, greater saphenous, popliteal and posterior t ibial veins are compressible and demonstrate augmentation. Doppler demonstrates good flow. IMPRESSION: No evidence of deep venous thrombosis involving the left lower extremity.
[2025-04-14] MEDS: ACETAMINOPHEN 325 MG TABLET PO PRN (21:27)
[2025-04-14] MEDS: ALBUMIN HUMAN 25% 200 ML IV ONE (21:28)
[2025-04-14] MEDS: ALBUMIN HUMAN 25% 100 ML IV ONE (21:37)
[2025-04-14] MEDS: ALBUMIN HUMAN 25% 50 ML IV ONE (21:39)
[2025-04-15] MEDS: VANCOMYCIN 1 GM/VIAL ONE (02:55)
[2025-04-15] MEDS: NA CHLORIDE 0.9% 500 ML ONE (02:56)
[2025-04-15] MEDS: VANCOMYCIN 2 GM in NA CHLORIDE 0.9% 500 ML IVPB SCH (03:01)
[2025-04-15 05:26] LABS: Absolute Lymphocytes (CBC) 0.8 K/uL (0.7-4.9); Hematocrit 33.3 % (36.0-45.0); Hemoglobin 10.5 g/dL (12.0-15.0); MCH 29.3 pg (27.0-35.0); MCHC 31.7 g/dL (32.0-36.0); MCV 92.4 fL (80-100); MPV 9.9 fL (7.6-11.3); Nucleated RBC Absolute Count 0.0 (0-0); Nucleated Red Blood Cells % 0.2 % (0-0); RBC Red Blood Cell Count 3.60 M/uL (3.86-4.86); White Blood Count 4.80 thou/uL (4.3-10.9)
[2025-04-15 05:54] LABS: Albumin 3.3 g/dL (3.4-5.0); Albumin/Globulin Ratio 0.8 (1.1-1.8); Alkaline Phosphatase 77 U/L (45-117); Anion Gap 5.4 mEq/L (5.0-15.0); BUN Blood Urea Nitrogen 13 mg/dL (7-18); Globulin 4.0 g/dL (2.3-3.5); Glucose Level 103 mg/dL (74-106); HDL Cholesterol 52 mg/dL (40-60); LDL Cholesterol, Calculated 47 mg/dL (<130); LDL Cholesterol,Calc NonReport 47; Magnesium 1.5 mg/dL (1.6-2.4); NT PRO-BNP 6835 pg/mL (<125); Potassium 3.4 mEq/L (3.5-5.1)
[2025-04-15 06:04] LABS: ALT/SGPT < 14 U/L (13-56); AST/SGOT < 10 U/L (15-37)
[2025-04-15] MEDS ORDERED: VANCOMYCIN 1.25 GM in NA CHLORIDE 0.9% 250 ML IVPB SCH (09:00)
[2025-04-15] MEDS: MAGNESIUM SULFATE 1 gm IVPB 1 GM/100 ML BAG IV ONE (09:12)
[2025-04-15] MEDS: ENOXAPARIN 40 MG/0.4 ML SQ SCH (09:12)
[2025-04-15] MEDS: FUROSEMIDE 40 MG/4 ML VIAL IV SCH (09:12)
[2025-04-15] MEDS: POTASSIUM CL SA 10 MEQ TAB PO ONE (09:12)
--- NOTE | 2025-04-15 09:49 | P.CNS ---
Date of Consult: 04/15/25 Chief Complaint: Decompensated CHF exacerbation, chronic infected wound left leg History of Present Illness: Patient with PMH of diastolic heart failure, AF, morbid obesity, chronic troponin elevation, medications non compliance, presented with worsening SOB, WHITLEY and lower extremities edema and possible cellulitis, denies chest pain, no palpitations, no syncope. Allergies insect venom Adverse Reaction (Verified 12/28/23 22:22) Anaphylaxis Home medications list reviewed: Yes Home Medications: Topiramate 50 mg PO BID #60 tab 12/30/23 hydrOXYzine HCL [Atarax] 50 mg PO TID PRN #30 tab 12/30/23 Sertraline [Zoloft*] 50 mg PO BEDTIME 09/20/24 Albuterol Sulfate 1.25 mg IH Q6HP PRN 11/21/24 Amiodarone HCl [Cordarone*] 200 mg PO DAILY 11/21/24 Amitriptyline [Elavil*] 50 mg PO BEDTIME 11/21/24 Atorvastatin Calcium 20 mg PO DAILY 11/21/24 Collagenase [Santyl Ointment*] 30 appl TOP DAILY 11/21/24 Hydralazine HCl 50 mg PO TID PRN 11/21/24 Mupirocin Oint [Bactroban 2% Ointment*] 1 [place] TOP BID 11/21/24 Rivaroxaban [Xarelto*] 20 mg PO DAILY 11/21/24 SUMAtriptan succinate [Sumatriptan Succinate] 1 tab PO BID 11/21/24 Silver Sulfadiazine [Silvadene 1% Cream] 1 [place] TOP DAILY 11/21/24 Vitamin B Complex [B Complex] 1 tab PO DAILY 11/21/24 Zinc Sulfate [Zinc Sulfate*] 1 cap PO DAILY 11/21/24 Metoprolol Tartrate [Lopressor*] 50 mg PO BID 30 Days #60 tab 11/30/24 Spironolactone [Aldactone*] 25 mg PO BID 02/20/25 cloNIDine HCL [Clonidine HCl] 0.1 mg PO DAILY PRN 02/20/25 acetaZOLAMIDE [Acetazolamide] 250 mg PO DAILY 30 Days #30 tab 03/08/25 allopurinoL [Zyloprim*] 300 mg PO DAILY tab 03/08/25 - Past Medical/Surgical History Diabetic: No -: Obstructive sleep apnea -: HTN -: CHFdiastolic -: Gout -: Venous insufficiency -: Tobacco abuse -: Morbid obesity -: Atrial flutter -: Anterior communicating artery aneurysm4 mm -: Focal moderate M1 stenosis -: CKD followed by Dr. Herrera/Mary -: Chronic warm left foot secondary to venous insufficiency -: Skin graft -: x2 -: vein removal on R leg (2015) Psychosocial/ Personal History: Lives at home with family - Family History Mother Medical History: Diabetes Notes: Alzheimer's Father Medical History: Heart disease, Stroke Brother Medical History: Heart disease, Diabetes - Social History Smoking Status: Current every day smoker Alcohol use: No CD- Drugs: No Caffeine use: Yes Place of Residence: Home Review of Systems 10-point ROS is otherwise unremarkable Physical Examination Temp Pulse Resp BP Pulse Ox 98.2 F 88 22 H 135/70 95 04/15/25 08:00 04/15/25 09:12 04/15/25 08:00 04/15/25 09:12 04/15/25 08:00 General: Alert, In no apparent distress HEENT: Atraumatic, PERRLA, Mucous membr. moist/pink, EOMI, Sclerae nonicteric Neck: Supple, 2+ carotid pulse no bruit, No LAD, Without JVD or thyroid abnormality Respiratory: Clear to auscultation bilaterally, Normal air movement Cardiovascular: Regular rate/rhythm, Normal S1 S2 Gastrointestinal: Normal bowel sounds, No tenderness Musculoskeletal: No tenderness Integumentary: No rashes Neurological: Normal gait, Normal speech, Normal tone, Normal affect Lymphatics: No axilla or inguinal lymphadenopathy Laboratory Data (last 24 hrs) 04/14/25 04/14/25 04/14/25 16:35 16:35 16:35 WBC 5.20 Hgb 11.0 L Hct 34.8 L Plt Count 159 PT 14.2 H INR 1.27 Sodium 142 Potassium 3.0 L BUN 13 Creatinine 1.00 Glucose 110 H Magnesium 1.6 Total Bilirubin 0.5 AST 12 L ALT 15 Alkaline Phosphatase 84 - Problems (1) Acute on chronic diastolic heart failure Current Visit: No Status: Acute Plan: increase lasix to 40 mg IV Q8 hours. start Coreg 3.125 mg po BID start lisinopril 5 mg daily start Aldactone 25 mg daily start Farxiga 10 mg daily continue to monitor input and output and electrolyes patient always had compliance issues as she admit to not taking medications at home due to having many prescriptions, advised her about need to take her medicine. (2) Atrial fibrillation Current Visit: No Status: Chronic Plan: Amiodarone 200 mg po BID Xarelto 20 mg daily continue to monitor on tele Qualifiers: Atrial fibrillation type: longstanding persistent Qualified Code(s): I48.11 - Longstanding persistent atrial fibrillation (3) HTN (hypertension) Current Visit: No Status: Chronic Plan: adjust medications as above. Qualifiers: Hypertension type: primary hypertension Qualified Code(s): I10 - Essential (primary) hypertension (4) NSTEMI (non-ST elevated myocardial infarction) Current Visit: No Status: Acute Plan: patient with chronic elevated troponin, no significant delta, no chest pain, she usually follow up with cardiology (Dr. Rivera) in [facility] outpatient follow up for updated stress test.
[2025-04-15] MEDS ORDERED: HOME MED 1 EA UNK (Hydroxyzine Hcl [Atarax] 50 MG Tablet) PO PRN (11:13)
[2025-04-15] MEDS: ARFORMOTEROL TARTRATE 15 MCG/2 ML VIAL.NEB NEB SCH (11:21)
[2025-04-15] MEDS: DULERA 200/5 (MOMETASONE/FORMOTEROL) INHALER IH SCH (11:21)
--- NOTE | 2025-04-15 11:22 | P.PN ---
Subjective Date of Service: 04/15/25 Chief Complaint: Congestive heart failure COPD exacerbation Patient is 70 years of age admitted with progressive dyspnea noncompliance with medication does not have a primary care physician Review of Systems General: Weakness Respiratory: Shortness of Breath Physical Examination - Vital Signs Temperature: 98.2 F Blood Pressure: 135/70 Pulse: 88 Respirations: 22 Pulse Ox (%): 95 - Physical Exam General: Alert, Oriented x3 Respiratory: Expiratory wheezes Cardiovascular: Edema, Abnormal S1 S2 - Studies Laboratory Data (last 24 hrs) 04/14/25 04/14/25 04/14/25 16:35 16:35 16:35 WBC 5.20 Hgb 11.0 L Hct 34.8 L Plt Count 159 PT 14.2 H INR 1.27 Sodium 142 Potassium 3.0 L BUN 13 Creatinine 1.00 Glucose 110 H Magnesium 1.6 Total Bilirubin 0.5 AST 12 L ALT 15 Alkaline Phosphatase 84 Assessment And Plan - Current Problems (Diagnosis) (1) Acute on chronic diastolic heart failure Current Visit: Yes Status: Acute Plan: Patient is 70 years of age noncompliance admitted with acute on chronic diastolic heart failure she does not have a primary care physician and resume Lasix spironolactone and her medications vital signs oxygenation satisfactory rate controlled labs chemistries reviewed non-STEMI seen by cardiology (2) COPD exacerbation Current Visit: Yes Status: Acute Plan: Patient continues to smoke add scheduled bronchodilators
[2025-04-15] MEDS ORDERED: hydrOXYzine HCL 25 MG TAB PO PRN (11:29)
[2025-04-15] MEDS: SPIRONOLACTONE 25 MG TABLET PO SCH (12:13)
[2025-04-15] MEDS: METOPROLOL TAR 50 MG TAB PO SCH (12:13)
[2025-04-15] MEDS: AMIODARONE HCL 200 MG TAB PO SCH (12:13)
[2025-04-15] MEDS: RIVAROXABAN 20 MG TABLET PO SCH (17:31)
[2025-04-15] MEDS: ALBUTEROL 2.5 MG/3 ML NEB SOL NEB PRN (20:13)
[2025-04-15] MEDS: IPRATROPIUM BROM 0.5MG/2.5ML NEB PRN (20:13)
[2025-04-15] MEDS ORDERED: SPIRONOLACTONE 25 MG TABLET PO SCH (21:00)
[2025-04-15] MEDS: SERTRALINE HCL 50 MG TAB PO SCH (21:02)
[2025-04-15] MEDS: ATORVASTATIN 20 MG TAB PO SCH (21:02)
[2025-04-15] MEDS: AMITRIPTYLINE 25 MG TAB PO SCH (21:02)
[2025-04-16 07:23] LABS: Absolute Lymphocytes (CBC) 0.6 K/uL (0.7-4.9); Hematocrit 32.9 % (36.0-45.0); Hemoglobin 10.2 g/dL (12.0-15.0); MCH 28.9 pg (27.0-35.0); MCHC 31.1 g/dL (32.0-36.0); MCV 92.9 fL (80-100); MPV 9.6 fL (7.6-11.3); Nucleated RBC Absolute Count 0.0 (0-0); Nucleated Red Blood Cells % 0.2 % (0-0); RBC Red Blood Cell Count 3.54 M/uL (3.86-4.86); White Blood Count 4.50 thou/uL (4.3-10.9)
[2025-04-16 07:44] LABS: Albumin 3.0 g/dL (3.4-5.0); Albumin/Globulin Ratio 0.7 (1.1-1.8); Alkaline Phosphatase 78 U/L (45-117); Anion Gap 5.7 mEq/L (5.0-15.0); BUN Blood Urea Nitrogen 15 mg/dL (7-18); Globulin 4.2 g/dL (2.3-3.5); Glucose Level 87 mg/dL (74-106); Magnesium 1.6 mg/dL (1.6-2.4); NT PRO-BNP 6787 pg/mL (<125); Potassium 3.7 mEq/L (3.5-5.1)
[2025-04-16 07:46] LABS: ALT/SGPT < 14 U/L (13-56); AST/SGOT < 10 U/L (15-37)
[2025-04-16] MEDS: MAGNESIUM SULFATE 1 gm IVPB 1 GM/100 ML BAG IV ONE (10:38)
[2025-04-16] MEDS: POTASSIUM CL SA 10 MEQ TAB PO ONE (10:38)
--- NOTE | 2025-04-16 14:10 | P.PN ---
Date of Service: 04/16/25 Subjective: Assuming care. She endorses worsening shortness of and fatigue. She states she does not know why this is happening to her. Review of Systems General: Weakness Respiratory: Shortness of Breath Physical Examination - Vital Signs Temperature: 98.2 F Blood Pressure: 135/70 Pulse: 88 Respirations: 22 Pulse Ox (%): 95 - Physical Exam General: Alert, Oriented x3 Respiratory: Expiratory wheezes Cardiovascular: Edema, Abnormal S1 S2 - Studies Laboratory Data (last 24 hrs) 04/14/25 04/14/25 04/14/25 16:35 16:35 16:35 WBC 5.20 Hgb 11.0 L Hct 34.8 L Plt Count 159 PT 14.2 H INR 1.27 Sodium 142 Potassium 3.0 L BUN 13 Creatinine 1.00 Glucose 110 H Magnesium 1.6 Total Bilirubin 0.5 AST 12 L ALT 15 Alkaline Phosphatase 84 Assessment And Plan - Current Problems (Diagnosis) 04/16 - Continue Lasix - Continue bronchodilator, Brovana, Dulera - Now on Coreg, lisinopril, Aldactone, Farxiga - Continue amiodarone and Xarelto for A-fib - Troponin leak. Follow-up with Dr. Rivera for updated stress test (1) Acute on chronic diastolic heart failure Current Visit: Yes Status: Acute Plan: Patient is 70 years of age noncompliance admitted with acute on chronic diastolic heart failure she does not have a primary care physician and resume Lasix spironolactone and her medications vital signs oxygenation satisfactory rate controlled labs chemistries reviewed non-STEMI seen by cardiology (2) COPD exacerbation Current Visit: Yes Status: Acute Plan: Patient continues to smoke add scheduled bronchodilators
[2025-04-17 08:01] LABS: Anion Gap 4.8 mEq/L (5.0-15.0); BUN Blood Urea Nitrogen 19.0 mg/dL (7-18); Glucose Level 94.0 mg/dL (74-106); Magnesium 1.8 mg/dL (1.6-2.4); NT PRO-BNP 7522.0 pg/mL (<125); Potassium 3.8 mEq/L (3.5-5.1)
--- NOTE | 2025-04-17 15:31 | P.PN ---
Subjective Date of Service: 04/17/25 Chief Complaint: Congestive heart failure COPD exacerbation Subjective: No chest pain. C/o shortness of breath. No nausea or vomiting. No abdominal pain. No obvious bleeding. Looks comfortable in the bed. Objective: General appearance: Alert and comfortable CVS: Normal S1 and S2 Lungs: Clear to auscultation bilaterally Abdomen: Soft, bowel sounds present, no tenderness Extremities: 2-3+ b/l lower extremity edema present Physical Examination - Vital Signs Temperature: 98.1 F Blood Pressure: 124/77 Pulse: 87 Respirations: 20 Pulse Ox (%): 94 Assessment And Plan - Plan Patient admitted inpatient with diagnosis of decompensated CHF exacerbation, chronic infected wound left foot, generalized body weakness. Patient wound culture positive for gram-positive cocci. (1)Decompensated CHF. -Change Lasix 40 mg IV to Q8h as per cards recs -f/u echocardiogram. -Consulted glaciologist, recommendations appreciated. (2)Chronic and infected wound left foot/pain left leg. - ultrasound venous. Impression: No evidence of deep venous thrombosis involving the left lower extremity. -Consult wound care team. -Wound culture Pseudomonas, continue antibiotics. 3. Atrial fibrillation: Continue medications as per cardiology 4. Hypertension: Continue current medication 5. NSTEMI: Outpatient stress test as per cardiology. Plan discussed with patient and nursing staff, discussed with case management team.
[2025-04-17] MEDS: PIPER TAZO 3.375 GM in NA CHLORIDE 0.9% 100 ML IV SCH (17:09)
[2025-04-17] MEDS: FUROSEMIDE 40 MG/4 ML VIAL IV SCH (17:09)
[2025-04-18 07:50] LABS: Absolute Lymphocytes (CBC) 0.7 K/uL (0.7-4.9); Hematocrit 32.6 % (36.0-45.0); Hemoglobin 10.3 g/dL (12.0-15.0); MCH 29.3 pg (27.0-35.0); MCHC 31.6 g/dL (32.0-36.0); MCV 92.9 fL (80-100); MPV 9.0 fL (7.6-11.3); Nucleated RBC Absolute Count 0.0 (0-0); Nucleated Red Blood Cells % 0.3 % (0-0); RBC Red Blood Cell Count 3.51 M/uL (3.86-4.86); White Blood Count 3.90 thou/uL (4.3-10.9)
[2025-04-18 08:06] LABS: Anion Gap 4.7 mEq/L (5.0-15.0); BUN Blood Urea Nitrogen 20.0 mg/dL (7-18); Glucose Level 90.0 mg/dL (74-106); Potassium 3.7 mEq/L (3.5-5.1)
[2025-04-18 10:12] LABS: White Blood Cell Scan OK (OK)
[2025-04-18 10:13] LABS: Blood Morphology Comment NOT SEEN (NOT SEEN)
--- NOTE | 2025-04-18 12:06 | P.CNS ---
Date of Consult: 04/18/25 reason for consult: left leg wound infection hpi:Patient with PMH of diastolic heart failure, AF, morbid obesity, chronic troponin elevation, and medications non compliance, presented with worsening SOB, and left leg wound infection. Pt is currently on zosyn. wound culture show 4 + pseudomonas species Allergies insect venom Adverse Reaction (Verified 12/28/23 22:22) Anaphylaxis Current Medications Acetaminophen (Acetaminophen 325 Mg Tablet) 650 mg PO Q4HP PRN PRN Reason: Pain scale 2-4 (Mild) Last Admin: 04/14/25 21:27 Dose: 650 mg Albuterol Sulfate (Albuterol 2.5 Mg/3 Ml Neb Bianca) 2.5 mg NEB [id number] PRN PRN Reason: SHORTNESS OF BREATH Last Admin: 04/15/25 20:13 Dose: 2.5 mg Allopurinol (Allopurinol 300 Mg Tab) 300 mg PO DAILY [facility] Last Admin: 04/18/25 08:34 Dose: 300 mg Amiodarone HCl (Amiodarone Hcl 200 Mg Tab) 200 mg PO DAILY LANIE Last Admin: 04/18/25 08:33 Dose: 200 mg Amitriptyline HCl (Amitriptyline 25 Mg Tab) 50 mg PO BEDTIME LANIE Last Admin: 04/17/25 20:52 Dose: 50 mg Arformoterol Tartrate (Arformoterol Tartrate 15 Mcg/2 Ml Vial.Neb) 15 mcg NEB BIDRESP [facility] Last Admin: 04/18/25 07:53 Dose: 15 mcg Atorvastatin Calcium (Atorvastatin 20 Mg Tab) 20 mg PO BEDTIME LANIE Last Admin: 04/17/25 20:52 Dose: 20 mg Furosemide (Furosemide 40 Mg/4 Ml Vial) 40 mg IV Q8HR [facility] Last Admin: 04/18/25 08:33 Dose: 40 mg Hydroxyzine HCl (Hydroxyzine Hcl 25 Mg Tab) 50 mg PO TID PRN PRN Reason: ITCHING Piperacillin Sod/Tazobactam (Sod 3.375 gm/ Sodium Chloride) 100 mls @ 25 mls/hr IV Q8HR [facility]; Protocol Last Admin: 04/18/25 08:36 Dose: 100 mls Ipratropium Wynot (Ipratropium Brom 0.5mg/2.5ml) 0.5 mg NEB [id number] PRN PRN Reason: SHORTNESS OF BREATH Last Admin: 04/15/25 20:13 Dose: 0.5 mg Lisinopril (Lisinopril 5 Mg Tab) 5 mg PO DAILY [facility] Last Admin: 04/18/25 08:34 Dose: 5 mg Metoprolol Tartrate (Metoprolol Tar 50 Mg Tab) 50 mg PO BID [facility] Last Admin: 04/18/25 08:34 Dose: 50 mg Ondansetron HCl (Ondansetron 4 Mg/2 Ml Vial) 4 mg IV Q6HP PRN PRN Reason: NAUSEA / VOMITING Rivaroxaban (Rivaroxaban 20 Mg Tablet) 20 mg PO DAILY 5 PM [facility] Last Admin: 04/17/25 17:09 Dose: 20 mg Sertraline HCl (Sertraline Hcl 50 Mg Tab) 50 mg PO BEDTIME [facility] Last Admin: 04/17/25 20:52 Dose: 50 mg Spironolactone (Spironolactone 25 Mg Tablet) 25 mg PO BID [facility] Last Admin: 04/18/25 08:33 Dose: 25 mg - Past Medical/Surgical History Diabetic: No -: Obstructive sleep apnea -: HTN -: CHFdiastolic -: Gout -: Venous insufficiency -: Tobacco abuse -: Morbid obesity -: Atrial flutter -: Anterior communicating artery aneurysm4 mm -: Focal moderate M1 stenosis -: CKD followed by Dr. Herrera/Mary -: Chronic warm left foot secondary to venous insufficiency -: Skin graft -: x2 -: vein removal on R leg (2014) Psychosocial/ Personal History: Lives at home with family - Family History Mother Medical History: Diabetes Notes: Alzheimer's Father Medical History: Heart disease, Stroke Brother Medical History: Heart disease, Diabetes - Social History Smoking Status: Current every day smoker Alcohol use: No CD- Drugs: No Caffeine use: Yes Place of Residence: Home ros: please see hpi Objective Temp Pulse Resp BP Pulse Ox 98.5 F 79 23 H 168/100 H 100 04/18/25 08:00 04/18/25 08:34 04/18/25 08:00 04/18/25 08:34 04/18/25 08:00 General: Alert, In no apparent distress, obese HEENT: Atraumatic, PERRLA, Neck: Supple, 2+ carotid pulse no bruit, No LAD, Without JVD or thyroid abnormality Respiratory: basal crackles. on 4L NC Cardiovascular: Regular rate/rhythm, Normal S1 S2 Gastrointestinal: Normal bowel sounds, No tenderness, Integumentary: left foot dressing labs: wbc 3.9, hgb 10.3, platelet 158, bun 20, cr 1.09, alnumin 3 assessment and planning 1. chronic infected wound left lower leg/ankle 2. acute on chronic disastole heart failure 3. atrial fibrillation 4. NSTEMI 5. moderate protein calorie malnourishment wound culturew grew pseudomonas. continue zosyn empirically. recommend 2 weeks of abx duration Neg for DVT to left lower extremity continue wound care per wound care nurse thank you for the consult case discussed and in agreement with dr keating
--- NOTE | 2025-04-18 12:19 | P.PN ---
Subjective Date of Service: 04/18/25 Chief Complaint: Congestive heart failure COPD exacerbation Subjective: No new changes, No C/O voiced, Tolerating diet, Improving Review of Systems 10-point ROS is otherwise unremarkable Physical Examination - Vital Signs Temperature: 98.2 F Blood Pressure: 142/82 Pulse: 71 Respirations: 20 Pulse Ox (%): 99 - Physical Exam General: Alert, In no apparent distress HEENT: Atraumatic, PERRLA, EOMI Neck: Supple, JVD not distended Respiratory: Clear to auscultation bilaterally, Normal air movement Cardiovascular: Regular rate/rhythm, Normal S1 S2 Gastrointestinal: Normal bowel sounds, No tenderness Musculoskeletal: No tenderness Integumentary: No rashes Neurological: Normal speech, Normal tone, Normal affect Lymphatics: No axilla or inguinal lymphadenopathy - Studies Medications List Reviewed: Yes Assessment And Plan - Current Problems (Diagnosis) (1) Acute on chronic diastolic heart failure Current Visit: No Status: Acute Plan: increase lasix to 40 mg IV Q8 hours. Lopressor 50 mg po BID increase lisinopril to 20 mg daily Aldactone 25 mg daily start Farxiga 10 mg daily continue to monitor input and output and electrolyes patient always had compliance issues as she admit to not taking medications at home due to having many prescriptions, advised her about need to take her medicine. (2) Atrial fibrillation Current Visit: No Status: Chronic Plan: Amiodarone 200 mg po BID Xarelto 20 mg daily continue to monitor on tele Qualifiers: Atrial fibrillation type: longstanding persistent Qualified Code(s): I48.11 - Longstanding persistent atrial fibrillation (3) HTN (hypertension) Current Visit: No Status: Chronic Plan: adjust medications as above. Qualifiers: Hypertension type: primary hypertension Qualified Code(s): I10 - Essential (primary) hypertension (4) NSTEMI (non-ST elevated myocardial infarction) Current Visit: No Status: Acute Plan: patient with chronic elevated troponin, no significant delta, no chest pain, she usually follow up with cardiology (Dr. Rivera) in [facility] outpatient follow up for updated stress test.
--- NOTE | 2025-04-18 15:08 | P.PN ---
Subjective Date of Service: 04/18/25 Chief Complaint: Congestive heart failure COPD exacerbation Subjective: No chest pain. C/o shortness of breath. No nausea or vomiting. No abdominal pain. No obvious bleeding. Looks comfortable in the bed. Objective: General appearance: Alert and comfortable CVS: Normal S1 and S2 Lungs: Clear to auscultation bilaterally Abdomen: Soft, bowel sounds present, no tenderness Extremities: 2-3+ b/l lower extremity edema present. left leg has dressing Physical Examination - Vital Signs Temperature: 98.2 F Blood Pressure: 142/82 Pulse: 71 Respirations: 20 Pulse Ox (%): 99 - Studies Medications List Reviewed: Yes Assessment And Plan - Plan Patient admitted inpatient with diagnosis of decompensated CHF exacerbation, chronic infected wound left foot, generalized body weakness. Patient wound culture positive for gram-positive cocci. (1)Decompensated CHF. -ContLasix 40 mg IV to Q8h as per cards recs -f/u echocardiogram. -Consulted head of sales, recommendations appreciated. (2)Chronic and infected wound left foot/pain left leg. - ultrasound venous. Impression: No evidence of deep venous thrombosis involving the left lower extremity. -Consult wound care team. -Wound culture Pseudomonas, continue antibiotics, ID consult requested, appreciate recommendations. 3. Atrial fibrillation: Continue medications as per cardiology 4. Hypertension: Increase lisinopril, continue other medications. 5. NSTEMI: Outpatient stress test as per cardiology. Plan discussed with patient and nursing staff, discussed with case management team.
[2025-04-18] MEDS: HYDROCODONE/APAP 5/325 MG TAB PO PRN (18:41)
[2025-04-19 06:51] LABS: Absolute Lymphocytes (CBC) 0.9 K/uL (0.7-4.9); Hematocrit 32.4 % (36.0-45.0); Hemoglobin 10.4 g/dL (12.0-15.0); MCH 29.4 pg (27.0-35.0); MCHC 32.1 g/dL (32.0-36.0); MCV 91.6 fL (80-100); MPV 9.1 fL (7.6-11.3); Nucleated RBC Absolute Count 0.0 (0-0); Nucleated Red Blood Cells % 0.3 % (0-0); RBC Red Blood Cell Count 3.54 M/uL (3.86-4.86); White Blood Count 3.90 thou/uL (4.3-10.9)
[2025-04-19 07:19] LABS: Anion Gap 3.7 mEq/L (5.0-15.0); BUN Blood Urea Nitrogen 19 mg/dL (7-18); Glucose Level 84 mg/dL (74-106); Magnesium 1.4 mg/dL (1.6-2.4); Potassium 3.7 mEq/L (3.5-5.1)
--- NOTE | 2025-04-19 10:10 | P.PN ---
Subjective Date of Service: 04/19/25 Chief Complaint: Congestive heart failure COPD exacerbation Subjective: No new changes, No C/O voiced, Tolerating diet Review of Systems 10-point ROS is otherwise unremarkable Physical Examination - Vital Signs Temperature: 97.5 F Blood Pressure: 173/81 Pulse: 79 Respirations: 17 Pulse Ox (%): 97 - Physical Exam General: Alert, In no apparent distress HEENT: Atraumatic, PERRLA, EOMI Neck: Supple, JVD not distended Respiratory: Clear to auscultation bilaterally, Normal air movement Cardiovascular: Regular rate/rhythm, Normal S1 S2 Gastrointestinal: Normal bowel sounds, No tenderness Musculoskeletal: No tenderness Integumentary: No rashes Neurological: Normal speech, Normal tone, Normal affect Lymphatics: No axilla or inguinal lymphadenopathy - Studies Medications List Reviewed: Yes Assessment And Plan - Current Problems (Diagnosis) (1) Acute on chronic diastolic heart failure Current Visit: No Status: Acute Plan: continue lasix to 40 mg IV Q8 hours for one more day then switch to lasix 40 mg po BID Lopressor 50 mg po BID lisinopril to 20 mg daily Aldactone 25 mg BID start Farxiga 10 mg daily continue to monitor input and output and electrolyes patient always had compliance issues as she admit to not taking medications at home due to having many prescriptions, advised her about need to take her medicine. (2) Atrial fibrillation Current Visit: No Status: Chronic Plan: Amiodarone 200 mg po BID Xarelto 20 mg daily continue to monitor on tele Qualifiers: Atrial fibrillation type: longstanding persistent Qualified Code(s): I48.11 - Longstanding persistent atrial fibrillation (3) HTN (hypertension) Current Visit: No Status: Chronic Plan: adjust medications as above. Qualifiers: Hypertension type: primary hypertension Qualified Code(s): I10 - Essential (primary) hypertension (4) NSTEMI (non-ST elevated myocardial infarction) Current Visit: No Status: Acute Plan: patient with chronic elevated troponin, no significant delta, no chest pain, she usually follow up with cardiology (Dr. Rivera) in [facility] outpatient follow up for updated stress test.
--- NOTE | 2025-04-19 12:48 | P.PN ---
Subjective Date of Service: 04/19/25 Chief Complaint: Congestive heart failure COPD exacerbation Subjective: No chest pain. C/o shortness of breath. No nausea or vomiting. No abdominal pain. No obvious bleeding. Looks comfortable in the bed. Objective: General appearance: Alert and comfortable CVS: Normal S1 and S2 Lungs: Clear to auscultation bilaterally Abdomen: Soft, bowel sounds present, no tenderness Extremities: 1+ b/l lower extremity edema present, improving over the last couple of days. left leg has dressing Physical Examination - Vital Signs Temperature: 98.7 F Blood Pressure: 128/80 Pulse: 80 Respirations: 16 Pulse Ox (%): 92 - Studies Medications List Reviewed: Yes Assessment And Plan - Plan Patient admitted inpatient with diagnosis of decompensated CHF exacerbation, chronic infected wound left foot, generalized body weakness. Patient wound culture positive for gram-positive cocci. (1)Decompensated CHF. -ContLasix 40 mg IV to Q8h as per cards recs -f/u echocardiogram. -Consulted equine breeder, recommendations appreciated. -Will get ABG and will consider to give a dose of Diamox if needed. (2)Chronic and infected wound left foot/pain left leg. - ultrasound venous. Impression: No evidence of deep venous thrombosis involvin g the left lower extremity. -Consulted wound care team. -Wound culture Pseudomonas, continue antibiotics, ID consult requested, appreciate recommendations. 3. Atrial fibrillation: Continue medications as per cardiology 4. Hypertension: Increase lisinopril to 40 mg, continue other medications. 5. NSTEMI: Outpatient stress test as per cardiology. Plan discussed with patient and nursing staff, discussed with case management team.
[2025-04-19] MEDS: MAGNESIUM 50% 3 GM in NA CHLORIDE 0.9% 100 ML IV ONE (13:22)
[2025-04-19 13:30] LABS: Blood Gas Oxyhemoglobin 93.3 % (94.0-97.0); Blood O2 Saturation 95.1 % (92.0-98.5)
[2025-04-19 13:31] LABS: Arterial Blood Carboxyhemoglob 2.3 % (0.0-1.5); Blood Gas Inspired Oxygen 36.0 %
[2025-04-19] MEDS: ACETAZOLAMIDE 500 MG IV IV SCH (17:40)
[2025-04-19] MEDS: NACHLORIDE 0.45% 1,000 ML IV SCH (17:41)
--- NOTE | 2025-04-19 19:50 | PN ---
Subjective: The patient is lying in bed. Denies any headache, nausea, vomiting, chest pain, abdomin al pain, constipation, or diarrhea. Objective: Vital Signs: Temperature 98, pulse 81 respirations 16, blood pressure 153/88. Lungs: Basal crackles. Heart: S1, S2. Regular. Abdomen: Soft, nontender. Bowel sounds present. Extremities: 2+ edema. Ulceration noted on the left lower extremity. Laboratory Data: Shows WBC 3.9, hemoglobin 10.4, platelets are 154. BUN of 19, creatinine 1. Left leg wound culture growing pseudomonas species and 4+ enteric organisms. The patient is currently yessi ng treated with Zosyn. Assessment And Plan: 1. Left lower extremity stasis ulcer. Culture reports are growing pseudomonas and enteric saad, be ing covered with Zosyn empirically. 2. Acute on chronic diastolic heart failure. 3. Respiratory failure. 4. Atrial fibrillation. 5. Moderate protein-calorie malnourishment. 6. Cuw-TI-kpjaerv elevation myocardial infarction. 7. Keep legs elevated. Continue antibiotic for 2 weeks. Wound care per surgical team. We will foll ow the patient as needed. NF/MODL Voice ID: [id number] Report ID: [id number]
[2025-04-20 06:03] LABS: Absolute Lymphocytes (CBC) 1.2 K/uL (0.7-4.9); Hematocrit 33.6 % (36.0-45.0); Hemoglobin 10.9 g/dL (12.0-15.0); MCH 29.6 pg (27.0-35.0); MCHC 32.5 g/dL (32.0-36.0); MCV 91.1 fL (80-100); MPV 8.7 fL (7.6-11.3); Nucleated RBC Absolute Count 0.0 (0-0); Nucleated Red Blood Cells % 0.2 % (0-0); RBC Red Blood Cell Count 3.69 M/uL (3.86-4.86); White Blood Count 5.00 thou/uL (4.3-10.9)
[2025-04-20 06:29] LABS: Anion Gap 3.6 mEq/L (5.0-15.0); BUN Blood Urea Nitrogen 23 mg/dL (7-18); Glucose Level 93 mg/dL (74-106); Magnesium 1.8 mg/dL (1.6-2.4); Potassium 3.6 mEq/L (3.5-5.1)
[2025-04-20] MEDS ORDERED: ALBUTEROL SULFATE 1.25 MG/3 ML IH PRN (07:30)
[2025-04-20] MEDS ORDERED: HYDRALAZINE HCL 25 MG TABLET PO PRN (08:55)
[2025-04-20] MEDS ORDERED: ALBUTEROL 2.5 MG/3 ML NEB SOL NEB PRN (08:57)
[2025-04-20] MEDS ORDERED: HOME MED 1 EA UNK (Topiramate [Topiramate] 50 MG Tablet) PO SCH (09:00)
[2025-04-20] MEDS ORDERED: SUMATRIPTAN SUCCI 50 MG TAB PO PRN (09:00)
[2025-04-20] MEDS: TOPIRAMATE 25 MG TAB PO SCH (09:57)
[2025-04-20] MEDS: POTASSIUM 25 MEQ EFFERV TAB PO ONE (09:57)
--- NOTE | 2025-04-20 14:12 | P.PN ---
Subjective Date of Service: 04/20/25 Chief Complaint: Congestive heart failure COPD exacerbation Subjective: Improving (Patient is on supplemental oxygen satting well. She is diuresing well as well. Net -3.9 L over the past 24 hours. She is in the hospital also for foot infection. Wound culture says yielded Pseudomonas. She is currently on antibiotics. Plan is to attempt to send the patient to SNF) Physical Examination - Vital Signs Temperature: 98.0 F Blood Pressure: 123/73 Pulse: 83 Respirations: 16 Pulse Ox (%): 94 - Physical Exam General: Obese (Physically deconditioned) HEENT: Atraumatic, Normocephalic Respiratory: Normal air movement Cardiovascular: Normal pulses, Regular rate/rhythm, Normal S1 S2, Edema (Bilateral lower extremity trace edema) Neurological: Normal speech - Studies Medications List Reviewed: Yes Assessment And Plan - Plan Assessment Patient is a 70-year-old -[place] female who presented to the hospital with bilateral lower extremity edema. She was treated for decompensated CHF. Also during this admission, patient was found to have diabetic foot wound. Superficial cultures yielded Pseudomonas. She is currently on antibiotics. Patient is physically deconditioned and frail. She is on supplemental oxygen, which she does not usually require on a continuous basis. Her functional status has been declining recently. Diabetic foot infection Decompensated CHF Morbid obesity Functional decline Plan: Continue Lasix 40 mg IV every 8 hours as per cardiology recommendation Follow 2D echo Patient started on acetazolamide for contraction alkalosis Venous Doppler negative for DVT Wound culture with Pseudomonas Continue antibiotics as per ID recommendation Discharge planning, ideally half-way facility as she is on Zosyn every 8 hours. Otherwise, home with home health. Antibiotic of choice as per ID. Levofloxacin if not contraindicated.
--- NOTE | 2025-04-20 16:35 | P.PN ---
Date of Service: 04/20/25 subjective no concern or complaints. wbc wnl. No fever/chill objective Temp Pulse Resp BP Pulse Ox 98.0 F 83 16 123/73 94 04/20/25 14:13 04/20/25 14:13 04/20/25 14:13 04/20/25 14:13 04/20/25 14:13 General: Alert, In no apparent distress, obese HEENT: Atraumatic, PERRLA, Neck: Supple, 2+ carotid pulse no bruit, No LAD, Without JVD or thyroid abnormality Respiratory: basal crackles. on 4L NC Cardiovascular: Regular rate/rhythm, Normal S1 S2 Gastrointestinal: Normal bowel sounds, No tenderness, Integumentary: left foot dressing labs: wbc 5, hgb 10.9, platelet 181, bun 23, cr 1.16, albumin 3 assessment and planning 1. chronic infected wound left lower leg/ankle 2. acute on chronic disastole heart failure 3. atrial fibrillation 4. NSTEMI 5. moderate protein calorie malnourishment wound culturew grew pseudomonas and enteric saad. continue zosyn empirically. recommend 2 weeks of abx duration. will benefit from SNF rehab Neg for DVT to left lower extremity continue wound care per wound care nurse case discussed and in agreement with Dr Zheng
[2025-04-20] MEDS: ALBUTEROL 2.5 MG/3 ML NEB SOL NEB PRN (19:47)
[2025-04-20] MEDS: AMINO ACIDS/PROTEIN HYDROLYS 30 ML LIQUID.PKT PO SCH (20:47)
[2025-04-21 05:41] LABS: Absolute Lymphocytes (CBC) 1.2 K/uL (0.7-4.9); Hematocrit 33.9 % (36.0-45.0); Hemoglobin 10.4 g/dL (12.0-15.0); MCH 28.5 pg (27.0-35.0); MCHC 30.7 g/dL (32.0-36.0); MCV 92.7 fL (80-100); MPV 9.2 fL (7.6-11.3); Nucleated RBC Absolute Count 0.0 (0-0); Nucleated Red Blood Cells % 0.1 % (0-0); RBC Red Blood Cell Count 3.65 M/uL (3.86-4.86); White Blood Count 5.10 thou/uL (4.3-10.9)
[2025-04-21 05:57] LABS: Anion Gap 6.0 mEq/L (5.0-15.0); BUN Blood Urea Nitrogen 24.0 mg/dL (7-18); Glucose Level 109.0 mg/dL (74-106); Magnesium 1.7 mg/dL (1.6-2.4); Potassium 4.0 mEq/L (3.5-5.1)
[2025-04-21] MEDS: MAGNESIUM SULFATE 1 gm IVPB 1 GM/100 ML BAG IV ONE (06:38)
--- NOTE | 2025-04-21 10:51 | P.PN ---
Subjective Date of Service: 04/19/25 Chief Complaint: Congestive heart failure COPD exacerbation Patient is currently on a BiPAP apparently her bicarbonate was over 45 I suspect is from the aggressive diuresis currently unresponsive Review of Systems is unable to be obtained Physical Examination - Vital Signs Temperature: 97 F Blood Pressure: 135/77 Pulse: 71 Respirations: 29 Pulse Ox (%): 98 - Physical Exam General: Unresponsive Respiratory: Clear to auscultation bilaterally Cardiovascular: Normal S1 S2, Edema - Studies Medications List Reviewed: Yes Assessment And Plan - Current Problems (Diagnosis) (1) Acute on chronic diastolic heart failure Current Visit: Yes Status: Acute Plan: Patient has acute on chronic diastolic heart failure however bicarbonate has increased significantly I suspect is due to overdiuresis started patient on IV fluids and some Diamox for now hold Lasix (2) COPD exacerbation Current Visit: Yes Status: Acute Plan: Patient continues to smoke add scheduled bronchodilators
--- NOTE | 2025-04-21 11:11 | P.PN ---
Subjective Date of Service: 04/21/25 Chief Complaint: Congestive heart failure COPD exacerbation Subjective: Improving Patient assessed sitting up in bed in no apparent distress. Patient denies any acute complaints including chest pain, palpitations, shortness of breath. She states that she wears home oxygen intermittently with periods of exertion, but is requiring 3 L now and denies shortness of breath. <Samuel Negro - Last Filed: 04/21/25 10:57> Date of Service: 04/21/25 Patient was seen and examined. Events of the last 24 hours have been noted. Spoke with with LOUIE regarding patient's clinical picture after evaluating and examining the patient independently. I performed a substantial part of the MDM during this patient's care today. I personally made or approved the documented management plan and acknowledge its risk of complications. I agree with the findings and documentation provided in the LOUIE's notes. <Megan Ashley - Last Filed: 04/28/25 17:00> Review of Systems 10-point ROS is otherwise unremarkable <Samuel Negro - Last Filed: 04/21/25 10:57> Physical Examination - Vital Signs Temperature: 97 F Blood Pressure: 135/77 Pulse: 71 Respirations: 29 Pulse Ox (%): 98 - Physical Exam General: Alert, In no apparent distress, Oriented x3, Cooperative, Obese HEENT: Atraumatic, Normocephalic, Mucous membr. moist/pink Neck: Supple, 2+ carotid pulse no bruit, JVD not distended, No Thyromegaly, No LAD Respiratory: Clear to auscultation bilaterally, Normal air movement, Diminished Cardiovascular: Normal pulses, Regular rate/rhythm, Normal S1 S2, Edema Capillary refill: Brisk Gastrointestinal: Normal bowel sounds, Soft and benign, Non-distended Musculoskeletal: No clubbing, No contractures, No erythema, No tenderness, No warmth Integumentary: No rashes, No breakdown, No significant lesion, No erythema, No warmth, No cyanosis Neurological: Normal speech, Normal tone, Sensation intact, Cranial nerves 3-12 intact Lymphatics: No axilla or inguinal lymphadenopathy External genitalia: Deferred Rectal: Deferred - Studies Medications List Reviewed: Yes <Samuel Negro - Last Filed: 04/21/25 10:57> Assessment And Plan - Plan Assessment Patient is a 70-year-old -[place]ian female who presented to the hospital with bilateral lower extremity edema. She was treated for decompensated CHF. Also during this admission, patient was found to have diabetic foot wound. Superficial cultures yielded Pseudomonas. She is currently on antibiotics. Patient is physically deconditioned and frail. She is on supplemental oxygen, which she does not usually require on a continuous basis. Her functional status has been declining recently. Diabetic foot infection Gdc-egmouxk-[id number] type 2 diabetes ACHS Accu-Cheks Sliding scale insulin - Venous Doppler negative for DVT - Wound culture with Pseudomonas - Continue antibiotics as per ID recommendation - Monitor CBC Acute on chronic decompensated CHF Atrial fibrillation Contraction alkalosis - Hold Lasix 40 mg IV every 8 hours as per cardiology recommendation - Follow 2D echo -Continue acetazolamide for contraction alkalosis per discussion with pulmonology - Monitor BMP COPD with acute exacerbation. Acute hypoxic and hypercapnic respiratory failure secondary to above. -Albuterol nebulizer mg Q 6 hours PRN Shortness of breath/Wheezing. -Ipratropium Nebulizer mg Q 6 hour PRN Shortness of breath/Wheezing. -Prednisone deferred in setting of infection above -Continuous pulse oximetry -Baseline Oxygen requirements: As needed home O2 2 L on exertion -Oxygen 3L Via nasal canula to maintain O2 saturation 88-92% wean down as tolerated. -CXR personally reviewed and showed: Likely pulmonary venous hypertension -ECG personally reviewed and showed: -ABGs reviewed and were significant for: 7.46 ph, CO2 76, HCO3 54, pO2 72 -Antibiotics: Zosyn 3.375 gm q8h - Monitor CBC Morbid obesity Functional decline Moderate protein calorie malnourishment - PT ordered - Likely DC to SNF - Social work consult Dispo: - Anticipate long term facility as she is on Zosyn every 8 hours - If able to de-escalate to Levaquin, home health may be an option Discharge Plan: [facility] Plan to discharge in: 48 Hours - Code Status/Comfort Care Code Status Assessed: No Critical Care: No <Samuel Negro - Last Filed: 04/21/25 10:57>
[2025-04-21] MEDS: WATER FOR INJ,STERILE 10 ML ONE (19:48)
[2025-04-22 06:06] LABS: Absolute Lymphocytes (CBC) 1.2 K/uL (0.7-4.9); Hematocrit 32.5 % (36.0-45.0); Hemoglobin 10.0 g/dL (12.0-15.0); MCH 28.8 pg (27.0-35.0); MCHC 30.7 g/dL (32.0-36.0); MCV 93.6 fL (80-100); MPV 9.5 fL (7.6-11.3); Nucleated RBC Absolute Count 0.0 (0-0); Nucleated Red Blood Cells % 0.2 % (0-0); RBC Red Blood Cell Count 3.47 M/uL (3.86-4.86); White Blood Count 4.90 thou/uL (4.3-10.9)
[2025-04-22 06:22] LABS: Anion Gap 5.9 mEq/L (5.0-15.0); BUN Blood Urea Nitrogen 28.0 mg/dL (7-18); Glucose Level 106.0 mg/dL (74-106); Magnesium 2.0 mg/dL (1.6-2.4); Potassium 3.9 mEq/L (3.5-5.1)
[2025-04-22] MEDS: WATER FOR INJ,STERILE 10 ML ONE (09:51)
[2025-04-22] MEDS: POTASSIUM CL SA 10 MEQ TAB PO ONE (09:55)
--- NOTE | 2025-04-22 12:19 | P.PN ---
Date of Service: 04/22/25 Subjective Date of Service: 04/22/25 Chief Complaint: Congestive heart failure COPD exacerbation Subjective: Improving Patient assessed sitting up in bed on 4 L nasal cannula in no apparent distress. Patient denies any acute complaints including chest pain, palpitations, shortness of breath. Review of Systems 10-point ROS is otherwise unremarkable Physical Examination - Vital Signs Temperature: 98.1 F Blood Pressure: 131/79 Pulse: 68 Respirations: 16 Pulse Ox (%): 97% on room air - Physical Exam General: Alert, In no apparent distress, Oriented x3, Cooperative, Obese HEENT: Atraumatic, Normocephalic, Mucous membr. moist/pink Neck: Supple, 2+ carotid pulse no bruit, JVD not distended, No Thyromegaly, No LAD Respiratory: Clear to auscultation bilaterally, Normal air movement, Diminished Cardiovascular: Normal pulses, irregularly irregular, trace edema Capillary refill: Brisk Gastrointestinal: Normal bowel sounds, Soft and benign, Non-distended Musculoskeletal: No clubbing, No contractures, No erythema, No tenderness, No w armth Integumentary: No rashes, No breakdown, No significant lesion, No erythema, No warmth, No cyanosis Neurological: Normal speech, Normal tone, Sensation intact, Cranial nerves 3-12 intact Lymphatics: No axilla or inguinal lymphadenopathy External genitalia: Deferred Rectal: Deferred - Studies Medications List Reviewed: Yes - Labs for 04/22/2025 showed stable hemoglobin at 10 and hematocrit at 32.5. Creatinine was stable at 1.16 with BUN of 28. Magnesium was 2.0. - Darin Murray's initial troponin was 213.8, and BNP was 6616. - An EKG on admission showed no ST elevation. - A left lower extremity ultrasound venous performed to rule out DVT showed no evidence of deep venous thrombosis involving the left lower extremity. - Wound culture on 04/15/2025 was positive for Pseudomonas and enteric saad. - Chest X-ray on 04/14/2025 showed lungs clear of acute infiltrate, with prominent upper lobe vessels indicative of pulmonary venous hypertension. - ABGs reviewed on 04/21/2025 were significant for pH 7.46, CO2 76, HCO3 54, pO2 72. Assessment And Plan - Plan Assessment Patient is a 70-year-old -[place] female who presented to the hospital with bilateral lower extremity edema. She was treated for decompensated CHF. Also during this admission, patient was found to have diabetic foot wound. Superficial cultures yielded Pseudomonas. She is currently on antibiotics. Patient is physically deconditioned and frail. She is on supplemental oxygen, which she does not usually require on a continuous basis. Her functional status has been declining recently. Diabetic foot infection, left ankle Uxy-iwlakiq-[id number] type 2 diabetes ACHS Accu-Cheks Sliding scale insulin - Venous Doppler negative for DVT - Wound culture positive for Pseudomonas - Continue antibiotics as per ID recommendation - Monitor CBC Wound care consulted recommending - Nursing to clean the wound with NS, apply wet-to-dry Betadine solution, and cover with 4x4 wrap with Kerlix on admission and daily. Previously given vancomycin 2 g IV daily, now discontinued Continue IV Zosyn for total 14 days therapy. Acute on chronic decompensated CHF Atrial fibrillation, chronic Contraction alkalosis, improving - Hold Lasix 40 mg IV every 8 hours as per cardiology recommendation - Follow 2D echo -Continue acetazolamide for contraction alkalosis per discussion with pulmonology Continue home amiodarone 200 mg twice daily Continue home Xarelto 20 mg daily - Monitor BMP COPD with acute exacerbation. Acute hypoxic and hypercapnic respiratory failure secondary to above. -Albuterol nebulizer mg Q 6 hours PRN Shortness of breath/Wheezing. -Ipratropium Nebulizer mg Q 6 hour PRN Shortness of breath/Wheezing. -Prednisone deferred in setting of infection above -Continuous pulse oximetry -Baseline Oxygen requirements: As needed home O2 2 L on exertion -Oxygen 4L Via nasal canula to maintain O2 saturation 88-92% wean down as tolerated. -CXR personally reviewed and showed: Likely pulmonary venous hypertension -ABGs reviewed and were significant for: 7.46 ph, CO2 76, HCO3 54, pO2 72 -Antibiotics: Zosyn 3.375 gm q8h - Monitor CBC Morbid obesity Functional decline Moderate protein calorie malnourishment - PT ordered - Likely DC to SNF - Social work consult Hypertension Continue home meds and adjust per cardiology recommendations Lopressor 50 mg twice daily Lisinopril 20 mg daily Aldactone 25 mg daily Farxiga 10 mg daily at time of discharge NSTEMI - chronic elevated troponin with no significant delta and no chest pain. 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 Events of the last 24 hours have been noted. Spoke with with LOUIE regarding patient's clinical picture after evaluating and examining the patient independently. I performed a substantial part of the MDM during this patient's care today. I personally made or approved the documented management plan and acknowledge its risk of complications. I agree with the findings and documentation provided in the LOUIE's notes. <Megan Ashley - Last Filed: 04/28/25 16:59>
[2025-04-22] MEDS: SPIRONOLACTONE 25 MG TABLET PO SCH (14:03)
[2025-04-22] MEDS: Mupirocin NASAL 2 APPL/1 GM TUBE NAS SCH (20:19)
--- NOTE | 2025-04-23 06:22 | RAD REPORT ---
XR CHEST 1 VIEW CLINICAL INDICATION: PICC line placement COMPARISON: None FINDINGS: SUPPORT DEVICES: Right upper extremity PICC terminates over the superior vena cava. LUNGS/PLEURAL SPACES: Bilateral perihilar and basilar interstitial opacities could represent vascular congestion, interstitial edema, subsegmental atelectasis and/or infiltrates. No pleural effusion. No pneumothorax. HEART/MEDIASTINUM: Cardiomegaly. BONES/UPPER ABDOMEN/SOFT TISSUES: No acute findings. IMPRESSION: 1. Right upper extremity PICC terminates over the superior vena cava. 2. Bilateral perihilar and basilar interstitial opacities could represent vascular congestion, inte rstitial edema, subsegmental atelectasis and/or infiltrates. Electronically signed by: Kimberly Olivo MD 04/23/2025 05:53 AM CDT Due to temporary technical issues with the PACS/[employer] reporting system, reports are being jeri d by the in-house radiologist without review as a courtesy to ensure prompt reporting the interpreting radiologist is fully responsible for the content of the report. Transcribed Date/Time: 04/23/2025 6:22 AM
[2025-04-23 07:54] LABS: Anion Gap 4.5 mEq/L (5.0-15.0); BUN Blood Urea Nitrogen 27.0 mg/dL (7-18); Glucose Level 91.0 mg/dL (74-106); Potassium 4.5 mEq/L (3.5-5.1)
--- NOTE | 2025-04-23 10:56 | P.PN ---
Subjective Date of Service: 04/23/25 Chief Complaint: Congestive heart failure COPD exacerbation Subjective: No new changes, No C/O voiced, Tolerating diet, Ambulating, Improving Review of Systems 10-point ROS is otherwise unremarkable Physical Examination - Vital Signs Temperature: 97.9 F Blood Pressure: 119/79 Pulse: 74 Respirations: 20 Pulse Ox (%): 97 - Physical Exam General: Alert, In no apparent distress HEENT: Atraumatic, PERRLA, EOMI Neck: Supple, JVD not distended Respiratory: Clear to auscultation bilaterally, Normal air movement Cardiovascular: Regular rate/rhythm, Normal S1 S2 Gastrointestinal: Normal bowel sounds, No tenderness Musculoskeletal: No tenderness Integumentary: No rashes Neurological: Normal speech, Normal tone, Normal affect Lymphatics: No axilla or inguinal lymphadenopathy - Studies Medications List Reviewed: Yes Assessment And Plan - Current Problems (Diagnosis) (1) Acute on chronic diastolic heart failure Current Visit: No Status: Acute Plan: switch to Dimaox 250 mg po BID Lopressor 50 mg po BID lisinopril 20 mg daily Aldactone 25 mg BID start Farxiga 10 mg daily continue to monitor input and output and electrolyes patient always had compliance issues as she admit to not taking medications at home due to having many prescriptions, advised her about need to take her medicine. Cardiology will sign off, please call with any questions. (2) Atrial fibrillation Current Visit: No Status: Chronic Plan: Amiodarone 200 mg po BID Xarelto 20 mg daily continue to monitor on tele Qualifiers: Atrial fibrillation type: longstanding persistent Qualified Code(s): I48.11 - Longstanding persistent atrial fibrillation (3) HTN (hypertension) Current Visit: No Status: Chronic Plan: adjust medications as above. Qualifiers: Hypertension type: primary hypertension Qualified Code(s): I10 - Essential (primary) hypertension (4) NSTEMI (non-ST elevated myocardial infarction) Current Visit: No Status: Acute Plan: patient with chronic elevated troponin, no significant delta, no chest pain, she usually follow up with cardiology (Dr. Rivera) in [facility] outpatient follow up for updated stress test.
--- NOTE | 2025-04-23 13:06 | P.PN ---
Date of Service: 04/23/25 subjective no concern or complaints. wbc wnl. No fever/chill objective Temp Pulse Resp BP Pulse Ox 97.9 F 74 20 119/79 97 04/23/25 10:56 04/23/25 10:56 04/23/25 10:56 04/23/25 10:56 04/23/25 10:56 General: Alert, In no apparent distress, obese HEENT: Atraumatic, PERRLA, Neck: Supple, 2+ carotid pulse no bruit, No LAD, Without JVD or thyroid abnormality Respiratory: basal crackles. on 4L NC Cardiovascular: Regular rate/rhythm, Normal S1 S2 Gastrointestinal: Normal bowel sounds, No tenderness, Integumentary: left foot dressing labs: wbc 4.9, hgb 10, platelet 171, bun 27, cr 1.29, albumin 3 assessment and planning 1. chronic infected wound left lower leg/ankle 2. acute on chronic disastole heart failure 3. atrial fibrillation 4. NSTEMI 5. moderate protein calorie malnourishment wound culturew grew pseudomonas and enteric saad. continue zosyn empirically. recommend 2 weeks of abx duration. will benefit from SNF rehab Neg for DVT to left lower extremity continue wound care per wound care nurse case discussed and in agreement with Dr Zheng
--- NOTE | 2025-04-23 15:12 | P.PN ---
Date of Service: 04/23/25 Subjective Date of Service: 04/22/25 Chief Complaint: Congestive heart failure COPD exacerbation Subjective: Improving Patient assessed sitting up in bed on 4 L nasal cannula in no apparent distress. Patient denies any acute complaints including chest pain, palpitations, shortness of breath. Review of Systems 10-point ROS is otherwise unremarkable Physical Examination - Vital Signs Temperature: 98.1 F Blood Pressure: 131/79 Pulse: 68 Respirations: 16 Pulse Ox (%): 97% on room air - Physical Exam General: Alert, In no apparent distress, Oriented x3, Cooperative, Obese HEENT: Atraumatic, Normocephalic, Mucous membr. moist/pink Neck: Supple, 2+ carotid pulse no bruit, JVD not distended, No Thyromegaly, No LAD Respiratory: Clear to auscultation bilaterally, Normal air movement, Diminished Cardiovascular: Normal pulses, irregularly irregular, trace edema Capillary refill: Brisk Gastrointestinal: Normal bowel sounds, Soft and benign, Non-distended Musculoskeletal: No clubbing, No contractures, No erythema, No tenderness, No w armth Integumentary: No rashes, No breakdown, No significant lesion, No erythema, No warmth, No cyanosis Neurological: Normal speech, Normal tone, Sensation intact, Cranial nerves 3-12 intact Lymphatics: No axilla or inguinal lymphadenopathy External genitalia: Deferred Rectal: Deferred - Studies Medications List Reviewed: Yes - Labs for 04/22/2025 showed stable hemoglobin at 10 and hematocrit at 32.5. Creatinine was stable at 1.16 with BUN of 28. Magnesium was 2.0. - Darin Murray's initial troponin was 213.8, and BNP was 6616. - An EKG on admission showed no ST elevation. - A left lower extremity ultrasound venous performed to rule out DVT showed no evidence of deep venous thrombosis involving the left lower extremity. - Wound culture on 04/15/2025 was positive for Pseudomonas and enteric saad. - Chest X-ray on 04/14/2025 showed lungs clear of acute infiltrate, with prominent upper lobe vessels indicative of pulmonary venous hypertension. - ABGs reviewed on 04/21/2025 were significant for pH 7.46, CO2 76, HCO3 54, pO2 72. Assessment And Plan - Plan Assessment Patient is a 70-year-old -[place] female who presented to the hospital with bilateral lower extremity edema. She was treated for decompensated CHF. Also during this admission, patient was found to have diabetic foot wound. Superficial cultures yielded Pseudomonas. She is currently on antibiotics. Patient is physically deconditioned and frail. She is on supplemental oxygen, which she does not usually require on a continuous basis. Her functional status has been declining recently. Medically clear for discharge pending coordination of IV antibiotics with home health care. Diabetic foot infection, left ankle [id number]-[id number] type 2 diabetes ACHS Accu-Cheks Sliding scale insulin - Venous Doppler negative for DVT - Wound culture positive for Pseudomonas - Continue antibiotics as per ID recommendation - Monitor CBC Wound care consulted recommending - Nursing to clean the wound with NS, apply wet-to-dry Betadine solution, and cover with 4x4 wrap with Kerlix on admission and daily. Previously given vancomycin 2 g IV daily, now discontinued Continue IV Zosyn for total 14 days therapy. Home health care orders for home IV antibiotic infusions completed, case management coordinating Acute on chronic decompensated CHF Atrial fibrillation, chronic Contraction alkalosis, improving - Hold Lasix 40 mg IV every 8 hours as per cardiology recommendation -Continue acetazolamide for contraction alkalosis per discussion with pulmonology Continue home amiodarone 200 mg twice daily Continue home Xarelto 20 mg daily - Monitor BMP COPD with acute exacerbation. Acute hypoxic and hypercapnic respiratory failure secondary to above. -Albuterol nebulizer mg Q 6 hours PRN Shortness of breath/Wheezing. -Ipratropium Nebulizer mg Q 6 hour PRN Shortness of breath/Wheezing. -Prednisone deferred in setting of infection above -Continuous pulse oximetry -Baseline Oxygen requirements: As needed home O2 2 L on exertion -Oxygen 4L Via nasal canula to maintain O2 saturation 88-92% wean down as tolerated. -CXR personally reviewed and showed: Likely pulmonary venous hypertension -ABGs reviewed and were significant for: 7.46 ph, CO2 76, HCO3 54, pO2 72 -Antibiotics: Zosyn 3.375 gm q8h - Monitor CBC Morbid obesity Functional decline Moderate protein calorie malnourishment - PT ordered - Likely HHC with PT/OT - Social work consulted Hypertension Continue home meds and adjust per cardiology recommendations Lopressor 50 mg twice daily Lisinopril 20 mg daily Aldactone 25 mg twice daily Farxiga 10 mg daily at time of discharge NSTEMI - chronic elevated troponin with no significant delta and no chest pain. 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 Events of the last 24 hours have been noted. Spoke with with LOUIE regarding patient's clinical picture after evaluating and examining the patient independently. I performed a substantial part of the MDM during this patient's care today. I personally made or approved the documented management plan and acknowledge its risk of complications. I agree with the findings and documentation provided in the LOUIE's notes. Continue with antibiotic therapy and will await for culture results. Continue with strict blood pressure control and continue with nebs, steroids, and antibiotics. Continue with diuretics. Strict blood sugar control. <Megan Ashley - Last Filed: 04/28/25 16:58>
[2025-04-23] MEDS: SPIRONOLACTONE 25 MG TABLET PO SCH (20:55)
[2025-04-23] MEDS: AMIODARONE HCL 200 MG TAB PO SCH (20:55)
--- NOTE | 2025-04-24 13:05 | P.PN ---
Date of Service: 04/24/25 Subjective Chief Complaint: Congestive heart failure COPD exacerbation Subjective: Improving Patient assessed sitting up in bed on 4 L nasal cannula in no apparent distress. Patient denies any acute complaints including chest pain, palpitations, shortness of breath. Review of Systems 10-point ROS is otherwise unremarkable Physical Examination - Vital Signs Vital signs reviewed - Physical Exam General: Alert, In no apparent distress, Oriented x3, Cooperative, Obese HEENT: Atraumatic, Normocephalic, Mucous membr. moist/pink Neck: Supple, 2+ carotid pulse no bruit, JVD not distended, No Thyromegaly, No LAD Respiratory: Clear to auscultation bilaterally, Normal air movement, Diminished Cardiovascular: Normal pulses, irregularly irregular, trace edema Capillary refill: Brisk Gastrointestinal: Normal bowel sounds, Soft and benign, Non-distended Musculoskeletal: No clubbing, No contractures, No erythema, No tenderness, No warmth Integumentary: No rashes, No breakdown, No significant lesion, No erythema, No warmth, No cyanosis Neurological: Normal speech, Normal tone, Sensation intact, Cranial nerves 3-12 intact Lymphatics: No axilla or inguinal lymphadenopathy External genitalia: Deferred Rectal: Deferred Assessment And Plan - Plan Assessment Patient is a 70-year-old -Martiniquais female who presented to the hospital with bilateral lower extremity edema. She was treated for decompensated CHF. Also during this admission, patient was found to have diabetic foot wound. Superficial cultures yielded Pseudomonas. She is currently on antibiotics. Patient is physically deconditioned and frail. She is on supplemental oxygen, which she does not usually require on a continuous basis. Her functional status has been declining recently. Medically clear for discharge pending coordination of IV antibiotics with home health care. Diabetic foot infection, left ankle Tuc-[id number] type 2 diabetes ACHS Accu-Cheks Sliding scale insulin - Venous Doppler negative for DVT - Wound culture positive for Pseudomonas - Continue antibiotics as per ID recommendation - Monitor CBC Wound care consulted recommending - Nursing to clean the wound with NS, apply wet-to-dry Betadine solution, and cover with 4x4 wrap with Kerlix on admission and daily. Previously given vancomycin 2 g IV daily, now discontinued Continue IV Zosyn for total 14 days therapy. Home health care orders for home IV antibiotic infusions completed, case management coordinating Acute on chronic decompensated CHF Atrial fibrillation, chronic Contraction alkalosis, improving - Hold Lasix 40 mg IV every 8 hours as per cardiology recommendation -Continue acetazolamide for contraction alkalosis per discussion with pulmonology Continue home amiodarone 200 mg twice daily Continue home Xarelto 20 mg daily - Monitor BMP COPD with acute exacerbation. Acute hypoxic and hypercapnic respiratory failure secondary to above. -Albuterol nebulizer mg Q 6 hours PRN Shortness of breath/Wheezing. -Ipratropium Nebulizer mg Q 6 hour PRN Shortness of breath/Wheezing. -Prednisone deferred in setting of infection above -Continuous pulse oximetry -Baseline Oxygen requirements: As needed home O2 2 L on exertion -Oxygen 4L Via nasal canula to maintain O2 saturation 88-92% wean down as tolerated. -CXR personally reviewed and showed: Likely pulmonary venous hypertension -ABGs reviewed and were significant for: 7.46 ph, CO2 76, HCO3 54, pO2 72 -Antibiotics: Zosyn 3.375 gm q8h - Monitor CBC Morbid obesity Functional decline Moderate protein calorie malnourishment - PT ordered - Likely HHC with PT/OT - Social work consulted Hypertension Continue home meds and adjust per cardiology recommendations Lopressor 50 mg twice daily Lisinopril 20 mg daily Aldactone 25 mg twice daily Farxiga 10 mg daily at time of discharge NSTEMI - chronic elevated troponin with no significant delta and no chest pain. 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 Rivera) in [facility] cardiology signed off 04/23 Dispo: - Patient declining SNF Home health care with IV antibiotics being coordinated with case management/ social work Discharge Plan: Home with home health care Plan to discharge in: Medically ready - Code Status/Comfort Care Code Status Assessed: No Critical Care: No <Samuel Negro - Last Filed: 04/24/25 13:03> Patient was seen and examined. Events of the last 24 hours have been noted. Spoke with with LOUIE regarding patient's clinical picture after evaluating and examining the patient independently. I performed a substantial part of the MDM during this patient's care today. I personally made or approved the documented management plan and acknowledge its risk of complications. I agree with the findings and documentation provided in the LOUIE's notes. Continue with wound care and continue with antibiotic treatment. Awaiting for outpatient arrangements. <Megan Ashley - Last Filed: 04/28/25 16:57>
--- NOTE | 2025-04-24 18:52 | PN ---
Subjective: The patient is sitting in bed. Denies any headache, nausea, vomiting, chest pain, abdom inal pain, constipation, or diarrhea. Objective: Vital Signs: Temperature 98, pulse 71, respirations 16, blood pressure 138/85. Lungs: Basal crackles. Heart: S1, S2. Regular. Abdomen: Soft, nontender. Bowel sounds present. Extremities: 3+ nonpitting edema. Leg wound noted. Laboratory Data: Reviewed. Assessment And Plan: Stasis ulcers to the left leg. The patient is getting IV antibiotic Zosyn thro ugh her PICC line. Planning for discharge. Consider switching patient to oral Levaquin and cefepime twice a day as patient has possible pseudomonas growth. We will follow the patient as needed. NF/MODL Voice ID: [id number] Report ID: [id number]
[2025-04-25] MEDS: CEFEPIME 2 GM in NA CHLORIDE 0.9% 100 ML IV SCH (09:45)
--- NOTE | 2025-04-25 11:56 | P.PN ---
Date of Service: 04/25/25 Subjective Chief Complaint: Congestive heart failure COPD exacerbation Subjective: Improving Patient assessed sitting up in bed on 4 L nasal cannula in no apparent distress. Patient denies any acute complaints including chest pain, palpitations, shortness of breath. Review of Systems 10-point ROS is otherwise unremarkable Physical Examination - Vital Signs Vital signs reviewed - Physical Exam General: Alert, In no apparent distress, Oriented x3, Cooperative, Obese HEENT: Atraumatic, Normocephalic, Mucous membr. moist/pink Neck: Supple, 2+ carotid pulse no bruit, JVD not distended, No Thyromegaly, No LAD Respiratory: Clear to auscultation bilaterally, Normal air movement, Diminished Cardiovascular: Normal pulses, irregularly irregular, trace edema Capillary refill: Brisk Gastrointestinal: Normal bowel sounds, Soft and benign, Non-distended Musculoskeletal: No clubbing, No contractures, No erythema, No tenderness, No warmth Integumentary: No rashes, No breakdown, No significant lesion, No erythema, No warmth, No cyanosis Neurological: Normal speech, Normal tone, Sensation intact, Cranial nerves 3-12 intact Lymphatics: No axilla or inguinal lymphadenopathy External genitalia: Deferred Rectal: Deferred Assessment And Plan - Plan Assessment Patient is a 70-year-old -Citizen Of [place] female who presented to the hospital with bilateral lower extremity edema. She was treated for decompensated CHF. Also during this admission, patient was found to have diabetic foot wound. Superficial cultures yielded Pseudomonas. She is currently on antibiotics. Patient is physically deconditioned and frail. She is on supplemental oxygen, which she does not usually require on a continuous basis. Her functional status has been declining recently. Medically clear for discharge pending coordination of IV antibiotics with home health care. Diabetic foot infection, left ankle Eui-rartswc-[id number] type 2 diabetes ACHS Accu-Cheks Sliding scale insulin - Venous Doppler negative for DVT - Wound culture positive for Pseudomonas - Continue antibiotics as per ID recommendation - Monitor CBC Wound care consulted recommending - Nursing to clean the wound with NS, apply wet-to-dry Betadine solution, and cover with 4x4 wrap with Kerlix on admission and daily. Previously given vancomycin 2 g IV daily, now discontinued DC IV Zosyn a.m. 04/24 Start Levaquin p.o. daily and cefepime IV twice daily for total 14 days therapy end of therapy 04/30 Home health care orders for home IV antibiotic infusions updated, case management coordinating Acute on chronic decompensated CHF Atrial fibrillation, chronic Contraction alkalosis, improving - Hold Lasix 40 mg IV every 8 hours as per cardiology recommendation and lieu of Diamox -Continue acetazolamide for contraction alkalosis per discussion with pulmonology Continue home amiodarone 200 mg twice daily Continue home Xarelto 20 mg daily - Monitor BMP COPD with acute exacerbation. Acute hypoxic and hypercapnic respiratory failure secondary to above. -Albuterol nebulizer mg Q 6 hours PRN Shortness of breath/Wheezing. -Ipratropium Nebulizer mg Q 6 hour PRN Shortness of breath/Wheezing. -Prednisone deferred in setting of infection above -Continuous pulse oximetry -Baseline Oxygen requirements: As needed home O2 2 L on exertion -Oxygen 4L Via nasal canula to maintain O2 saturation 88-92% wean down as tolerated. -CXR personally reviewed and showed: Likely pulmonary venous hypertension -ABGs reviewed and were significant for: 7.46 ph, CO2 76, HCO3 54, pO2 72 -Antibiotics: Zosyn 3.375 gm q8h - Monitor CBC Morbid obesity Functional decline Moderate protein calorie malnourishment - PT ordered - Likely HHC with PT/OT - Social work consulted Hypertension Continue home meds and adjust per cardiology recommendations Lopressor 50 mg twice daily Lisinopril 20 mg daily Aldactone 25 mg twice daily Farxiga 10 mg daily at time of discharge NSTEMI - chronic elevated troponin with no significant delta and no chest pain. - Outpatient follow-up for an updated stress test per cardiology consult recommendation Home psychiatric lpn (Dr. Rivera) in [facility] cardiology signed off 04/23 Dispo: - Patient declining SNF Home health care with IV antibiotics being coordinated with case management/social work Discharge Plan: Home with home health care Plan to discharge in: Medically ready - Code Status/Comfort Care Code Status Assessed: No Critical Care: No <Samuel Negro - Last Filed: 04/25/25 11:50> Patient was seen and examined. Events of the last 24 hours have been noted. Spoke with with LOUIE regarding patient's clinical picture after evaluating and examining the patient independently. I performed a substantial part of the MDM during this patient's care today. I personally made or approved the documented management plan and acknowledge its risk of complications. I agree with the findings and documentation provided in the LOUIE's notes. <Megan Ashley - Last Filed: 04/28/25 16:57>
--- NOTE | 2025-04-25 13:24 | P.PN ---
Date of Service: 04/25/25 subjective no concern or complaints. wbc wnl. No fever/chill objective Temp Pulse Resp BP Pulse Ox 98.1 F 69 18 134/72 99 04/25/25 12:00 04/25/25 12:00 04/25/25 12:00 04/25/25 12:00 04/25/25 12:00 General: Alert, In no apparent distress, obese HEENT: Atraumatic, PERRLA, Neck: Supple, 2+ carotid pulse no bruit, No LAD, Without JVD or thyroid abnormality Respiratory: basal crackles. on 4L NC Cardiovascular: Regular rate/rhythm, Normal S1 S2 Gastrointestinal: Normal bowel sounds, No tenderness, Integumentary: left foot dressing labs: wbc 4.9, hgb 10, platelet 171, bun 27, cr 1.29, albumin 3 assessment and planning 1. chronic infected wound left lower leg/ankle 2. acute on chronic disastole heart failure 3. atrial fibrillation 4. NSTEMI 5. moderate protein calorie malnourishment wound culturew grew pseudomonas and enteric saad. continue levaquin and cefepime. recommend 2 weeks of abx duration. will benefit from SNF rehab Neg for DVT to left lower extremity continue wound care per wound care nurse case discussed and in agreement with Dr Zheng
[2025-04-26] MEDS: LORazepam 2 MG/ML VIAL IV ONE (03:21)
--- NOTE | 2025-04-26 09:05 | P.PN ---
Date of Service: 04/26/25 Subjective Chief Complaint: Congestive heart failure COPD exacerbation Subjective: Improving Patient assessed sitting up in bed on 3 L nasal cannula in no apparent distress. Patient denies any acute complaints including chest pain, palpitations, shortness of breath. Appears tired, arouses to verbal and tactile stimuli, answers question but returns to sleep quickly. Bedside RN present states patient got Ativan overnight at approximately 3 AM due to pulling off her BiPAP and oxygen. Review of Systems 10-point ROS is otherwise unremarkable Physical Examination - Vital Signs Vital signs reviewed - Physical Exam General: Alert, In no apparent distress, Oriented x3, Cooperative, Obese HEENT: Atraumatic, Normocephalic, Mucous membr. moist/pink Neck: Supple, 2+ carotid pulse no bruit, JVD not distended, No Thyromegaly, No LAD Respiratory: Clear to auscultation bilaterally, Normal air movement, Diminished Cardiovascular: Normal pulses, irregularly irregular, trace edema Capillary refill: Brisk Gastrointestinal: Normal bowel sounds, Soft and benign, Non-distended Musculoskeletal: No clubbing, No contractures, No erythema, No tenderness, No warmth Integumentary: No rashes, No breakdown, No significant lesion, No erythema, No warmth, No cyanosis Neurological: Normal speech, Normal tone, Sensation intact, Cranial nerves 3-12 intact Lymphatics: No axilla or inguinal lymphadenopathy External genitalia: Deferred Rectal: Deferred Assessment And Plan - Plan Assessment Patient is a 70-year-old -[place] female who presented to the hospital with bilateral lower extremity edema. She was treated for decompensated CHF. Also during this admission, patient was found to have diabetic foot wound. Superficial cultures yielded Pseudomonas. She is currently on antibiotics. Patient is physically deconditioned and frail. She is on supplemental oxygen, which she does not usually require on a continuous basis. Her functional status has been declining recently. Medically clear for discharge pending coordination of IV antibiotics with home health care. Diabetic foot infection, left ankle Fvy-jnblxqr-uvuxqriyj type 2 diabetes ACHS Accu-Cheks Sliding scale insulin - Venous Doppler negative for DVT - Wound culture positive for Pseudomonas - Continue antibiotics as per ID recommendation - Monitor CBC Wound care consulted recommending - Nursing to clean the wound with NS, apply wet-to-dry Betadine solution, and cover with 4x4 wrap with Kerlix on admission and daily. Previously given vancomycin 2 g IV daily, now discontinued DC IV Zosyn a.m. 04/24 Continue Levaquin p.o. daily and cefepime IV twice daily for total 14 days therapy end of therapy 04/30 Home health care orders for home IV antibiotic infusions updated, case management coordinating Acute on chronic decompensated CHF Atrial fibrillation, chronic Contraction alkalosis, improving -Previously given Lasix 40 mg IV every 8 hours, now held in lieu of Diamox -Continue acetazolamide for contraction alkalosis per discussion with pulmonology, transition from IV to p.o. today 04/26 Continue home amiodarone 200 mg twice daily Continue home Xarelto 20 mg daily - Monitor BMP COPD with acute exacerbation. Acute on chronic hypoxic and hypercapnic respiratory failure secondary to above. -Albuterol nebulizer mg Q 6 hours PRN Shortness of breath/Wheezing. -Ipratropium Nebulizer mg Q 6 hour PRN Shortness of breath/Wheezing. -Prednisone deferred in setting of infection above -Continuous pulse oximetry -Baseline Oxygen requirements: As needed home O2 2 L on exertion -Oxygen 4L Via nasal canula to maintain O2 saturation 88-92% wean down as tolerated. -CXR personally reviewed and showed: Likely pulmonary venous hypertension -ABGs reviewed and were significant for: 7.46 ph, CO2 76, HCO3 54, pO2 72 - Monitor CBC Morbid obesity Functional decline Moderate protein calorie malnourishment - PT ordered - C with PT/OT due to patient refusing SNF - Social work consulted Hypertension Continue home meds and adjust per cardiology recommendations Lopressor 50 mg twice daily Lisinopril 20 mg daily Aldactone 25 mg twice daily Farxiga 10 mg daily at time of discharge NSTEMI - chronic elevated troponin with no significant delta and no chest pain. - Outpatient follow-up for an updated stress test per cardiology consult recommendation Home assurance services manager health care (Dr. Rivera) in [facility] cardiology signed off 04/23 Dispo: SNF recommended Home health care with IV antibiotics being coordinated with case management/social work Discharge Plan: Home with home health care Plan to discharge in: Medically ready - Code Status/Comfort Care Code Status Assessed: No Critical Care: No <Samuel Negro - Last Filed: 04/26/25 09:02> Patient was seen and examined. Events of the last 24 hours have been noted. Spoke with with LOUIE regarding patient's clinical picture after evaluating and examining the patient independently. I performed a substantial part of the MDM during this patient's care today. I personally made or approved the documented management plan and acknowledge its risk of complications. I agree with the findings and documentation provided in the LOUIE's notes. <Megan Ashley - Last Filed: 04/28/25 16:57>
[2025-04-26] MEDS: acetaZOLAMIDE 250 MG TAB PO SCH (09:31)
[2025-04-26 09:57] LABS: PH, Venous Blood Gas 7.23 (7.32-7.42)
[2025-04-26 09:58] LABS: Base Excess, VBG 3.0 mmol/L (-2.0-3.0); HCO3, Venous Blood Gas 30.6 mmol/L (21.0-29.0); O2 Saturation, VBG 89.8 % (40.0-70.0); PO2, Venous Blood Gas 69 mmHg (25-40)
[2025-04-26 10:00] LABS: PCO2, Venous Blood Gas 73 mmHg (41-51)
[2025-04-26 10:04] LABS: Hematocrit 33.5 % (36.0-45.0); Hemoglobin 10.3 g/dL (12.0-15.0); MCH 28.9 pg (27.0-35.0); MCHC 30.9 g/dL (32.0-36.0); MCV 93.8 fL (80-100); MPV 9.7 fL (7.6-11.3); RBC Red Blood Cell Count 3.57 M/uL (3.86-4.86); White Blood Count 4.00 thou/uL (4.3-10.9)
[2025-04-26 10:14] LABS: Anion Gap 5.9 mEq/L (5.0-15.0); BUN Blood Urea Nitrogen 22.0 mg/dL (7-18); Glucose Level 89.0 mg/dL (74-106); Potassium 3.9 mEq/L (3.5-5.1)
[2025-04-26] MEDS: POTASSIUM CL SA 10 MEQ TAB PO ONE (10:46)
[2025-04-26] MEDS: DOCUSATE NA/SENNA CONC 1 TAB PO ONE (10:49)
[2025-04-26] MEDS: LORazepam 2 MG/ML VIAL IV PRN (20:31)
--- NOTE | 2025-04-26 22:53 | PN ---
Subjective: The patient is somnolent and currently on BiPAP. Opens eyes spontaneously and on verbal stimuli. Objective: Vital Signs: Temperature 98, pulse 63, respirations 18, blood pressure 134/80. Lungs: Basal crackles. Heart: S1, S2. Regular. Abdomen: Soft, nontender. Bowel sounds present. Extremities: 2+ edema. Left leg ulcer noted. Laboratory Data: Shows WBC 4, hemoglobin 10.3, platelets are 171. BUN of 22, creatinine 0.9. Curre ntly, on cefepime. Assessment And Plan: 1. Left lower extremity cellulitis and stasis leg ulcer. Keep leg elevated. Pseudomonas species in the culture, currently on cefepime. 2. Congestive heart failure. 3. Leukopenia. 4. Anemia of chronic disease. 5. Moderate protein-calorie malnourishment. We will follow the patient as needed. NF/MODL Voice ID: [id number] Report ID: [id number]
[2025-04-27 06:12] VITALS: BMI 39.4
--- NOTE | 2025-04-27 09:48 | P.PN ---
Date of Service: 04/27/25 Subjective Chief Complaint: Congestive heart failure COPD exacerbation Subjective: Improving Patient assessed lying in bed on BiPAP. Denies acute complaints. Review of Systems 10-point ROS is otherwise unremarkable Physical Examination - Vital Signs Vital signs reviewed - Physical Exam General: Alert, In no apparent distress, Oriented x3, Cooperative, Obese HEENT: Atraumatic, Normocephalic, Mucous membr. moist/pink Neck: Supple, 2+ carotid pulse no bruit, JVD not distended, No Thyromegaly, No LAD Respiratory: Clear to auscultation bilaterally, Normal air movement, Diminished Cardiovascular: Normal pulses, irregularly irregular, trace edema Capillary refill: Brisk Gastrointestinal: Normal bowel sounds, Soft and benign, Non-distended Musculoskeletal: No clubbing, No contractures, No erythema, No tenderness, No warmth Integumentary: No rashes, No breakdown, No significant lesion, No erythema, No warmth, No cyanosis Neurological: Normal speech, Normal tone, Sensation intact, Cranial nerves 3-12 intact Lymphatics: No axilla or inguinal lymphadenopathy External genitalia: Deferred Rectal: Deferred Assessment And Plan - Plan Assessment Patient is a 70-year-old -[place] female who presented to the hospital with bilateral lower extremity edema. She was treated for decompensated CHF. Also during this admission, patient was found to have diabetic foot wound. Superficial cultures yielded Pseudomonas. She is currently on antibiotics. Patient is physically deconditioned and frail. She is on supplemental oxygen, which she does not usually require on a continuous basis. Her functional status has been declining recently. Medically clear for discharge pending coordination of IV antibiotics with home health care. Left lower extremity cellulitis Left lower extremity stasis leg ulcer [id number] type 2 diabetes Leukopenia Anemia of chronic disease ACHS Accu-Cheks Sliding scale insulin - Venous Doppler negative for DVT - Wound culture positive for Pseudomonas - Continue antibiotics as per ID recommendation - Monitor CBC PRN Wound care consulted recommending - Nursing to clean the wound with NS, apply wet-to-dry Betadine solution, and cover with 4x4 wrap with Kerlix on admission and daily. Previously given vancomycin 2 g IV daily, now discontinued DC IV Zosyn a.m. 04/24 Continue Levaquin p.o. daily and cefepime IV twice daily for total 14 days therapy end of therapy 04/30 Home health care orders for home IV antibiotic infusions updated, case management coordinating Acute on chronic decompensated CHF Atrial fibrillation, chronic Contraction alkalosis, improving -Previously given Lasix 40 mg IV every 8 hours, now held in lieu of Diamox -Continue acetazolamide for contraction alkalosis per discussion with pulmonology, transition from IV to p.o. today 04/26 Continue home amiodarone 200 mg twice daily Continue home Xarelto 20 mg daily - Monitor BMP COPD with acute exacerbation. Acute on chronic hypoxic and hypercapnic respiratory failure secondary to above. -Albuterol nebulizer mg Q 6 hours PRN Shortness of breath/Wheezing. -Ipratropium Nebulizer mg Q 6 hour PRN Shortness of breath/Wheezing. -Prednisone deferred in setting of infection above -Continuous pulse oximetry -Baseline Oxygen requirements: As needed home O2 2 L on exertion -Oxygen 4L Via nasal canula to maintain O2 saturation 88-92% wean down as tolerated. -CXR personally reviewed and showed: Likely pulmonary venous hypertension -ABGs reviewed and were significant for: 7.46 ph, CO2 76, HCO3 54, pO2 72 - Monitor CBC Morbid obesity Functional decline Moderate protein calorie malnourishment - PT ordered - C with PT/OT due to patient refusing SNF - Social work consulted Hypertension Lopressor 50 mg twice daily Lisinopril 20 mg daily Aldactone 25 mg twice daily Farxiga 10 mg daily at time of discharge NSTEMI - chronic elevated troponin with no significant delta and no chest pain. - Outpatient follow-up for an updated stress test per cardiology consult recommendation Home rectifying attendant (Dr. Rivera) in [facility] cardiology signed off 04/23 Dispo: SNF recommended Home health care with IV antibiotics being coordinated with case management/social work Discharge Plan: Home with home health care Plan to discharge in: Medically ready - Code Status/Comfort Care Code Status Assessed: No Critical Care: No <Samuel Negro - Last Filed: 04/27/25 09:42> Patient was seen and examined. Events of the last 24 hours have been noted. Spoke with with LOUIE regarding patient's clinical picture after evaluating and examining the patient independently. I performed a substantial part of the MDM during this patient's care today. I personally made or approved the documented management plan and acknowledge its risk of complications. I agree with the findings and documentation provided in the LOUIE's notes. <Megan Ashley - Last Filed: 04/28/25 16:56>
--- NOTE | 2025-04-27 13:12 | P.PN ---
Date of Service: 04/27/25 subjective no concern or complaints. wbc wnl. No fever/chill objective Temp Pulse Resp BP Pulse Ox 98.0 F 80 20 134/83 94 04/27/25 12:00 04/27/25 12:00 04/27/25 12:00 04/27/25 12:00 04/27/25 12:00 General: Alert, In no apparent distress, obese HEENT: Atraumatic, PERRLA, Neck: Supple, 2+ carotid pulse no bruit, No LAD, Without JVD or thyroid abnormality Respiratory: basal crackles. on 3L NC Cardiovascular: Regular rate/rhythm, Normal S1 S2 Gastrointestinal: Normal bowel sounds, No tenderness, Integumentary: left foot dressing labs: wbc 4, hgb 10.3, platelet 171, bun 27, cr 1.29, albumin 3 assessment and planning 1. chronic infected wound left lower leg/ankle 2. acute on chronic disastole heart failure 3. atrial fibrillation 4. NSTEMI 5. moderate protein calorie malnourishment 6. anemia of chronic disease wound culturew grew pseudomonas and enteric saad. continue levaquin and cefepime. recommend 2 weeks of abx duration. Neg for DVT to left lower extremity continue wound care per wound care nurse case discussed and in agreement with Dr Zheng
[2025-04-27] MEDS: OLANZapine 2.5 MG TAB PO ONE (14:11)
[2025-04-27] MEDS ORDERED: OLANZapine 2.5 MG TAB PO SCH (21:00)
--- NOTE | 2025-04-28 08:23 | P.PN ---
Date of Service: 04/28/25 Subjective Chief Complaint: Congestive heart failure COPD exacerbation Subjective: Improving Patient assessed lying in bed on nasal cannula calm cooperative and in no apparent distress. Denies acute complaints. Night and daytimes RNs at the bedside. Night RN endorses significant improvement in medications starting yesterday. Discussed plan to continue today. Also, patient had accidental discontinuation of PICC line overnight. Discussed with bedside RN that patient and I need PICC since she is not returning home with IV antibiotics. Will attempt placement of a PIV for resumption of cefepime. If unsuccessful, may need to be of a PICC or midline. Review of Systems 10-point ROS is otherwise unremarkable Physical Examination - Vital Signs Vital signs reviewed - Physical Exam General: Alert, In no apparent distress, Oriented x3, Cooperative, Obese HEENT: Atraumatic, Normocephalic, Mucous membr. moist/pink Neck: Supple, 2+ carotid pulse no bruit, JVD not distended, No Thyromegaly, No LAD Respiratory: Clear to auscultation bilaterally, Normal air movement, Diminished Cardiovascular: Normal pulses, irregularly irregular, trace edema Capillary refill: Brisk Gastrointestinal: Normal bowel sounds, Soft and benign, Non-distended Musculoskeletal: No clubbing, No contractures, No erythema, No tenderness, No warmth Integumentary: No rashes, No breakdown, No significant lesion, No erythema, No warmth, No cyanosis Neurological: Normal speech, Normal tone, Sensation intact, Cranial nerves 3-12 intact Lymphatics: No axilla or inguinal lymphadenopathy External genitalia: Deferred Rectal: Deferred Assessment And Plan - Plan Assessment Patient is a 70-year-old -[place] female who presented to the hospital with bilateral lower extremity edema. She was treated for decompensated CHF. Also during this admission, patient was found to have diabetic foot wound. Superficial cultures yielded Pseudomonas. She is currently on antibiotics. Patient is physically deconditioned and frail. She is on supplemental oxygen, which she does not usually require on a continuous basis. Her functional status has been declining recently. Medically clear for discharge pending coordination of IV antibiotics with home health care. Left lower extremity cellulitis Left lower extremity stasis leg ulcer Loj-iljilxe-nkukicvhb type 2 diabetes Leukopenia Anemia of chronic disease ACHS Accu-Cheks Sliding scale insulin - Venous Doppler negative for DVT - Wound culture positive for Pseudomonas - Continue antibiotics as per ID recommendation through 04/30/2025 - CBC ordered 04/29 Wound care consulted recommending - Nursing to clean the wound with NS, apply wet-to-dry Betadine solution, and cover with 4x4 wrap with Kerlix on admission and daily. Previously given vancomycin 2 g IV daily, now discontinued DC IV Zosyn a.m. 04/24 Continue Levaquin p.o. daily and cefepime IV twice daily for total 14 days therapy end of therapy 04/30/2025 Home health care orders for home IV antibiotic infusions updated, case management coordinating Acute on chronic decompensated CHF Atrial fibrillation, chronic Contraction alkalosis, improving -Previously given Lasix 40 mg IV every 8 hours, now held in lieu of Diamox -Continue acetazolamide for contraction alkalosis per discussion with pulmonology, transition from IV to p.o. 04/26 Continue home amiodarone 200 mg twice daily Continue home Xarelto 20 mg daily - Monitor BMP COPD with acute exacerbation. Acute on chronic hypoxic and hypercapnic respiratory failure secondary to above. -Albuterol nebulizer mg Q 6 hours PRN Shortness of breath/Wheezing. -Ipratropium Nebulizer mg Q 6 hour PRN Shortness of breath/Wheezing. -Prednisone deferred in setting of infection above -Continuous pulse oximetry -Baseline Oxygen requirements: As needed home O2 2 L on exertion -Oxygen 4L Via nasal canula to maintain O2 saturation 88-92% wean down as tolerated. -CXR personally reviewed and showed: Likely pulmonary venous hypertension -ABGs reviewed and were significant for: 7.46 ph, CO2 76, HCO3 54, pO2 72 - Monitor CBC Morbid obesity Functional decline Moderate protein calorie malnourishment - PT ordered - HHC with PT/OT due to patient refusing SNF - Social work consulted Hypertension Lopressor 50 mg twice daily Lisinopril 20 mg daily Aldactone 25 mg twice daily Farxiga 10 mg daily at time of discharge NSTEMI - chronic elevated troponin with no significant delta and no chest pain. - Outpatient follow-up for an updated stress test per cardiology consult recommendation Home microphone operator (Dr. Rivera) in [facility] Inpatient cardiology signed off 04/23 Dispo: SNF recommended Home health care with IV antibiotics being coordinated with case management/social work Discharge Plan: Home with home health care Plan to discharge in: 72 hours D/T home health hesitancy regarding home antibiotic administration teaching requiring further inpatient stay - Code Status/Comfort Care Code Status Assessed: No Critical Care: No <Samuel Negro - Last Filed: 04/28/25 08:19> Patient was seen and examined. Events of the last 24 hours have been noted. Spoke with with LOUIE regarding patient's clinical picture after evaluating and examining the patient independently. I performed a substantial part of the MDM during this patient's care today. I personally made or approved the documented management plan and acknowledge its risk of complications. I agree with the findings and documentation provided in the LOUIE's notes. Patient with UTI and wound infection; concern for MDRO. Will continue with broad spectrum antibiotics and await for culture results. <Megan Ashley - Last Filed: 04/28/25 16:56>
[2025-04-28] MEDS: OLANZapine 2.5 MG TAB PO SCH (10:22)
[2025-04-28] MEDS: POTASSIUM CL SA 10 MEQ TAB PO ONE (21:00)
--- NOTE | 2025-04-29 03:43 | PN ---
Subjective: The patient is lying in bed. No new acute event. Chart reviewed. Objective: Vital Signs: Reviewed. Lungs: Basal crackles. Heart: S1, S2. Regular. Abdomen: Soft, nontender. Bowel sounds present. Extremities: 2+ edema. Laboratory Data: Reviewed. Assessment And Plan: 1. Left lower extremity cellulitis and stasis ulcers. 2. Diabetes mellitus. 3. Anemia of chronic disease. 4. Congestive heart failure. 5. Morbid obesity. 6. COPD. 7. Anemia of chronic disease. 8. Moderate protein-calorie malnourishment. Continue to monitor signs of infection with WBC and fever trends. NF/MODL Voice ID: [id number] Report ID: [id number]
[2025-04-29] MEDS: LORazepam 2 MG/ML VIAL IV ONE (05:28)
[2025-04-29] MEDS: VITAMIN B COMPLEX 1 CAP PO SCH (08:32)
[2025-04-29] MEDS: ZINC SULFATE 220 MG CAP PO SCH (08:33)
[2025-04-29] MEDS ORDERED: HOME MED 1 EA UNK (Vitamin B Complex [B Complex] Tablet) PO SCH (09:00)
--- NOTE | 2025-04-29 09:49 | P.PN ---
Date of Service: 04/29/25 Subjective Chief Complaint: Congestive heart failure COPD exacerbation Subjective: Improving Patient assessed lying in bed on nasal cannula calm cooperative and in no apparent distress. Denies acute complaints. Appears sleepy. Review of Systems 10-point ROS is otherwise unremarkable Physical Examination - Vital Signs Vital signs reviewed - Physical Exam GEN: No apparent distress, nontoxic appearance HEENT: Nasal septum midline RESP: No accessory muscle use CV: Regular rate MSK: No cyanosis or clubbing SKIN: No visible rash, bandage LLE CDI PSYCH: Alert, not appearing anxious or agitated Assessment And Plan - Plan Assessment Patient is a 70-year-old -[place] female who presented to the hospital with bilateral lower extremity edema. She was treated for decompensated CHF. Also during this admission, patient was found to have diabetic foot wound. Superficial cultures yielded Pseudomonas. She is currently on antibiotics. Patient is physically deconditioned and frail. She is on supplemental oxygen, which she does not usually require on a continuous basis. Her functional status has been declining recently. Medically clear for discharge pending coordination of IV antibiotics with home health care. Left lower extremity cellulitis Left lower extremity stasis leg ulcer Zvr-rgibuhf-siihjgxlr type 2 diabetes Leukopenia Anemia of chronic disease ACHS Accu-Cheks Sliding scale insulin - Venous Doppler negative for DVT - Wound culture positive for Pseudomonas - Continue antibiotics as per ID recommendation through 04/30/2025 - CBC ordered Wound care consulted recommending - Nursing to clean the wound with NS, apply wet-to-dry Betadine solution, and cover with 4x4 wrap with Kerlix on admission and daily. Previously given vancomycin 2 g IV daily, now discontinued DC IV Zosyn a.m. 04/24 Continue Levaquin p.o. daily and cefepime IV twice daily for total 14 days therapy end of therapy 04/30/2025 Home health care orders for home IV antibiotic infusions updated, case management coordinating Acute on chronic decompensated CHF Atrial fibrillation, chronic Contraction alkalosis, improving -Previously given Lasix 40 mg IV every 8 hours, now held in lieu of Diamox -Continue acetazolamide for contraction alkalosis per discussion with pulmonology, transition from IV to p.o. 04/26 Continue home amiodarone 200 mg twice daily Continue home Xarelto 20 mg daily - Monitor BMP COPD with acute exacerbation. Acute on chronic hypoxic and hypercapnic respiratory failure secondary to above. -Albuterol nebulizer mg Q 6 hours PRN Shortness of breath/Wheezing. -Ipratropium Nebulizer mg Q 6 hour PRN Shortness of breath/Wheezing. -Prednisone deferred in setting of infection above -Continuous pulse oximetry -Baseline Oxygen requirements: As needed home O2 2 L on exertion -Oxygen 4L Via nasal canula to maintain O2 saturation 88-92% wean down as tolerated. -CXR personally reviewed and showed: Likely pulmonary venous hypertension -ABGs reviewed and were significant for: 7.46 ph, CO2 76, HCO3 54, pO2 72 - Monitor CBC Morbid obesity Functional decline Moderate protein calorie malnourishment - PT ordered - HHC with PT/OT due to patient refusing SNF - Social work consulted Hypertension Lopressor 50 mg twice daily Lisinopril 20 mg daily Aldactone 25 mg twice daily Farxiga 10 mg daily at time of discharge NSTEMI - chronic elevated troponin with no significant delta and no chest pain. 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 Rivera) in [facility] Inpatient cardiology signed off 04/23 Dispo: SNF recommended Home health care with IV antibiotics being coordinated with case management/social work Discharge Plan: Home with home health care Plan to discharge in: 24 hours D/T home health hesitancy regarding home antibiotic administration teaching requiring further inpatient stay - Code Status/Comfort Care Code Status Assessed: No Critical Care: No
[2025-04-29] MEDS: OLANZapine 2.5 MG TAB PO SCH (21:24)
[2025-04-30] MEDS: LORazepam 2 MG/ML VIAL IV ONE (03:18)
[2025-04-30 05:15] LABS: Absolute Lymphocytes (CBC) 1.2 K/uL (0.7-4.9); Hematocrit 34.7 % (36.0-45.0); Hemoglobin 10.7 g/dL (12.0-15.0); MCH 28.4 pg (27.0-35.0); MCHC 30.8 g/dL (32.0-36.0); MCV 92.5 fL (80-100); MPV 9.8 fL (7.6-11.3); Nucleated RBC Absolute Count 0.0 (0-0); Nucleated Red Blood Cells % 0.2 % (0-0); RBC Red Blood Cell Count 3.76 M/uL (3.86-4.86); White Blood Count 5.40 thou/uL (4.3-10.9)
[2025-04-30 05:34] LABS: AST/SGOT 11 U/L (15-37); Albumin 2.8 g/dL (3.4-5.0); Albumin/Globulin Ratio 0.6 (1.1-1.8); Alkaline Phosphatase 76 U/L (45-117); Anion Gap 6.7 mEq/L (5.0-15.0); BUN Blood Urea Nitrogen 23 mg/dL (7-18); Globulin 4.8 g/dL (2.3-3.5); Glucose Level 108 mg/dL (74-106); Potassium 3.7 mEq/L (3.5-5.1)
[2025-04-30 05:35] LABS: ALT/SGPT < 14 U/L (13-56)
[2025-04-30 08:55] VITALS: TEMP 97.6
[2025-04-30 10:31] VITALS: O2SAT 93
[2025-04-30] MEDS: POTASSIUM CL SA 10 MEQ TAB PO ONE (11:10)
--- NOTE | 2025-04-30 11:59 | P.PN ---
Date of Service: 04/30/25 subjective no concern or complaints. wbc wnl. No fever/chill objective Temp Pulse Resp BP Pulse Ox 97.6 F 70 16 131/77 96 04/30/25 08:00 04/30/25 08:00 04/30/25 08:00 04/30/25 08:00 04/30/25 08:00 General: Alert, In no apparent distress, obese HEENT: Atraumatic, PERRLA, Neck: Supple, 2+ carotid pulse no bruit, No LAD, Without JVD or thyroid abnormality Respiratory: basal crackles. on 3L NC Cardiovascular: Regular rate/rhythm, Normal S1 S2 Gastrointestinal: Normal bowel sounds, No tenderness, Integumentary: left foot dressing labs: wbc 5.4, hgb 10.7, platelet 193, bun 23, cr 1.16, albumin 2.8 assessment and planning 1. chronic infected wound left lower leg/ankle 2. acute on chronic disastole heart failure 3. atrial fibrillation 4. NSTEMI 5. moderate protein calorie malnourishment 6. anemia of chronic disease wound culturew grew pseudomonas and enteric saad. continue levaquin and cefepime. recommend 2 weeks of abx duration. Neg for DVT to left lower extremity continue wound care per wound care nurse case discussed and in agreement with Dr Zheng
--- NOTE | 2025-04-30 12:13 | P.DS ---
Admission Date: 04/14/25 Discharge Date: 04/30/25 Primary Care Provider: Jaylin Murray NP Reason for Admission: Congestive heart failure COPD exacerbation Consultations: Infectious disease Cardiology Pulmonology Wound care Procedures: None Brief History of Present Illness: Mellisa Patterson underwent two weeks of IV antibiotics for venous stasis diabetic ulcers. She is currently pending discharge to home health for physical therapy, occupational therapy, and wound care. The patient endorses readiness to return home and denies any fevers, chills, nausea, vomiting, or other infectious signs and symptoms. Hospital Course: Patient is a 70-year-old -Citizen Of [place] female admitted with bilateral lower extremity edema and decompensated CHF, found to have a diabetic foot wound with superficial cultures positive for Pseudomonas. She is physically deconditioned and frail. She is on supplemental oxygen, which is not her usual continuous baseline. Functional status has recently declined. She is medically clear for discharge pending coordination of home IV antibiotics with home health. Left lower extremity cellulitis and stasis leg ulcer in the setting of noninsulin-dependent type 2 diabetes: Wound culture grew Pseudomonas. Venous Doppler negative for DVT. Previously on vancomycin (now discontinued) and IV Zosyn (discontinued 04/24). Continuing Levofloxacin PO daily and cefepime IV BID per ID for a total 14-day course with end of therapy on 04/30/2025; home IV antibiotic infusions arranged with home health. ACHS glucose monitoring with sliding scale insulin. CBC ordered for therapy monitoring. Wound care consulted; nursing to clean with normal saline, apply wet-to-dry Betadine solution, and cover with 4x4 and Kerlix on admission and daily. Acute on chronic decompensated CHF; chronic atrial fibrillation; contraction alkalosis (improved): Diuresis transitioned from IV furosemide (40 mg IV q8h, now held) to acetazolamide for contraction alkalosis with transition from IV to PO on 04/26 per pulmonology. Continue home amiodarone 200 mg BID and rivaroxaban 20 mg daily. Monitor BMP. COPD exacerbation with acute on chronic hypoxic and hypercapnic respiratory failure: Managed with PRN albuterol and ipratropium nebulizers q6h for dyspnea/wheezing. Prednisone deferred due to concurrent infection. Continuous pulse oximetry; baseline home O2 is 2 L on exertion as needed. Weaned as tolerated. CXR consistent with likely pulmonary venous hypertension. ABG notable for pH 7.46, pCO2 76, HCO3 54, pO2 72. Monitor CBC. Room air trial at time of discharge successful at 95% O2 sats. Recommend maintaining close communication with PCP in case home oxygen is needed at a later date. Morbid obesity; functional decline; moderate protein-calorie malnutrition: PT o rdered. Patient declines SNF; plan for home health with PT/OT. Social work engaged. Hypertension: Continue metoprolol tartrate 50 mg BID, lisinopril 20 mg daily, spironolactone 25 mg BID. Plan to initiate dapagliflozin 10 mg daily at discharge. NSTEMI (type 2 supplydemand mismatch suspected) with chronically elevated troponin without significant delta and no chest pain: Cardiology recommends ou tpatient updated stress test; inpatient cardiology signed off on 04/23. Follow- up with home sanitary chemist (Dr. Rivera) in [place]. Disposition: SNF recommended; patient prefers discharge home with home health. Home health care with IV antibiotics is being coordinated with case management/social work. Medically stable for discharge once home IV antibiotics and services are in place. <Samuel Negro - Last Filed: 04/30/25 12:11> Admission Date: 04/14/25 Discharge Date: 04/30/25 <Sharath Bella - Last Filed: 04/30/25 16:24> Disposition: DC HOME/HOME HEALTH CARE Discharge Condition: GOOD Vital Signs/Physical Exam: Temp Pulse Resp BP Pulse Ox 97.6 F 70 16 131/77 96 04/30/25 08:00 04/30/25 08:00 04/30/25 08:00 04/30/25 08:00 04/30/25 08:00 Other Physical/Emotional Findings: GEN: No apparent distress, nontoxic appearance. HEENT: Nasal septum midline. RESP: No accessory muscle use. CV: Regular rate. MSK: No cyanosis or clubbing. SKIN: No visible rash, LLE bandage CDI. PSYCH: Alert, not appearing anxious or agitated Laboratory Data at Discharge: WBC 5.40 thou/uL (4.3-10.9) 04/30/25 05:06 Hgb 10.7 g/dL (12.0-15.0) L 04/30/25 05:06 Hct 34.7 % (36.0-45.0) L 04/30/25 05:06 Plt Count 193 thou/uL (152-406) 04/30/25 05:06 PT 14.2 SECONDS (10-13.0) H 04/14/25 16:35 INR 1.27 04/14/25 16:35 Sodium 140 mEq/L (136-145) 04/30/25 05:06 Potassium 3.7 mEq/L (3.5-5.1) 04/30/25 05:06 BUN 23 mg/dL (7-18) H 04/30/25 05:06 Creatinine 1.16 mg/dL (0.55-1.02) H 04/30/25 05:06 Glucose 108 mg/dL (74-106) H 04/30/25 05:06 Phosphorus 4.2 mg/dL (2.5-4.9) 04/21/25 05:24 Magnesium 2.0 mg/dL (1.6-2.4) 04/22/25 05:47 Total Bilirubin 0.5 mg/dL (0.2-1.0) 04/30/25 05:06 AST 11 U/L (15-37) L 04/30/25 05:06 ALT < 14 U/L (13-56) 04/30/25 05:06 Alkaline Phosphatase 76 U/L (45-117) 04/30/25 05:06 Triglycerides 47 mg/dL (<150) 04/15/25 04:52 Cholesterol 108 mg/dL (<200) 04/15/25 04:52 HDL Cholesterol 52 mg/dL (40-60) 04/15/25 04:52 Cholesterol/HDL Ratio 2.08 04/15/25 04:52 <Samuel Negro - Last Filed: 04/30/25 12:11> Vital Signs/Physical Exam: Temp Pulse Resp BP Pulse Ox 97.6 F 69 16 139/95 H 16 L 04/30/25 12:00 04/30/25 12:00 04/30/25 12:00 04/30/25 12:00 04/30/25 12:00 Laboratory Data at Discharge: WBC 5.40 thou/uL (4.3-10.9) 04/30/25 05:06 Hgb 10.7 g/dL (12.0-15.0) L 04/30/25 05:06 Hct 34.7 % (36.0-45.0) L 04/30/25 05:06 Plt Count 193 thou/uL (152-406) 04/30/25 05:06 PT 14.2 SECONDS (10-13.0) H 04/14/25 16:35 INR 1.27 04/14/25 16:35 Sodium 140 mEq/L (136-145) 04/30/25 05:06 Potassium 3.7 mEq/L (3.5-5.1) 04/30/25 05:06 BUN 23 mg/dL (7-18) H 04/30/25 05:06 Creatinine 1.16 mg/dL (0.55-1.02) H 04/30/25 05:06 Glucose 108 mg/dL (74-106) H 04/30/25 05:06 Phosphorus 4.2 mg/dL (2.5-4.9) 04/21/25 05:24 Magnesium 2.0 mg/dL (1.6-2.4) 04/22/25 05:47 Total Bilirubin 0.5 mg/dL (0.2-1.0) 04/30/25 05:06 AST 11 U/L (15-37) L 04/30/25 05:06 ALT < 14 U/L (13-56) 04/30/25 05:06 Alkaline Phosphatase 76 U/L (45-117) 04/30/25 05:06 Triglycerides 47 mg/dL (<150) 04/15/25 04:52 Cholesterol 108 mg/dL (<200) 04/15/25 04:52 HDL Cholesterol 52 mg/dL (40-60) 04/15/25 04:52 Cholesterol/HDL Ratio 2.08 04/15/25 04:52 <Sharath Bella - Last Filed: 04/30/25 16:24> Diet: AHA Activity: Fall precautions Time spent managing pt's care (in minutes): 36 <Samuel Negro - Last Filed: 04/30/25 12:11> Physician Review: Patient Assessed, Agree with Above Assessment and Plan <Sharath Bella - Last Filed: 04/30/25 16:24> Home Medications: Topiramate 50 mg PO BID #60 tab 12/30/23 hydrOXYzine HCL [Atarax] 50 mg PO TID PRN #30 tab 12/30/23 Sertraline [Zoloft*] 50 mg PO BEDTIME 09/20/24 Amiodarone HCl [Cordarone*] 200 mg PO DAILY 11/21/24 Amitriptyline [Elavil*] 50 mg PO BEDTIME 11/21/24 Atorvastatin Calcium 20 mg PO DAILY 11/21/24 Collagenase [Santyl Ointment*] 30 appl TOP DAILY 11/21/24 Hydralazine HCl 50 mg PO TID PRN 11/21/24 Mupirocin Oint [Bactroban 2% Ointment*] 1 [place] TOP BID 11/21/24 Rivaroxaban [Xarelto*] 20 mg PO DAILY 11/21/24 SUMAtriptan succinate [Sumatriptan Succinate] 1 tab PO BID 11/21/24 Silver Sulfadiazine [Silvadene 1% Cream] 1 [place] TOP DAILY 11/21/24 Vitamin B Complex [B Complex] 1 tab PO DAILY 11/21/24 Zinc Sulfate [Zinc Sulfate*] 1 cap PO DAILY 11/21/24 Metoprolol Tartrate [Lopressor*] 50 mg PO BID 30 Days #60 tab 11/30/24 Spironolactone [Aldactone*] 25 mg PO BID 02/20/25 cloNIDine HCL [Clonidine HCl] 0.1 mg PO DAILY PRN 02/20/25 allopurinoL [Zyloprim*] 300 mg PO DAILY tab 03/08/25 Dapagliflozin Propanediol [Dapagliflozin] 10 mg PO DAILY #90 tab 04/30/25 Mometasone/Formoterol [Dulera 200 Mcg/5 Mcg Inhaler] 2 puff IH BID inhaler 04/30/25 Spironolactone [Aldactone*] 25 mg PO BID tab 04/30/25 acetaZOLAMIDE [Acetazolamide] 250 mg PO BID 30 Days #30 tab 04/30/25 lisinopriL [Prinivil*] 20 mg PO DAILY tab 04/30/25 modafiniL [Provigil*] 100 mg PO BID tab 04/30/25 New Medications: acetaZOLAMIDE [Acetazolamide] 250 mg PO BID 30 Days #30 tab Dapagliflozin Propanediol [Dapagliflozin] 10 mg PO DAILY #90 tab Physician Discharge Instructions: F/u with Jaylin Cooney for primary care Take all your medications as prescribed Make sure you are wearing your CPAP at night Your most recent room air test upon leaving the hospital was successful. If you begin to have issues with shortness of breath please contact your primary care to start working on home oxygen coordination. Followup: Jaylin Cooney, [facility] [ALLIED HEALTH PROFESSIONAL] - 1-2 Weeks
[2025-04-30 12:59] VITALS: BP 139/95
== END 2025-04-30 16:18 | disposition home health service (06) | DRG 280 ==
LOC: ER 16:22 → 2ND 19:06
PROVIDERS: ADMIT Internal Medicine Sleep Medicine; ATTEND Family Medicine
PROC: 5A09557 Assistance with Respiratory Ventilation, Greater than 96 Consecutive Hours, Continuous Positive Airway Pressure (ICD-10-PCS; 2025-04-17)
PROC: 4A033R1 Measurement of Arterial Saturation, Peripheral, Percutaneous Approach (ICD-10-PCS; principal; 2025-04-19)
PROC: 02HV33Z Insertion of Infusion Device into Superior Vena Cava, Percutaneous Approach (ICD-10-PCS; 2025-04-23)
DX: I11.0 Hypertensive heart disease with heart failure (principal); I50.33 Acute on chronic diastolic (congestive) heart failure; I21.A1 Myocardial infarction type 2; J96.21 Acute and chronic respiratory failure with hypoxia; J96.22 Acute and chronic respiratory failure with hypercapnia; Z68.41 Body mass index [BMI] 40.0-44.9, adult; E66.2 Morbid (severe) obesity with alveolar hypoventilation; I48.11 Longstanding persistent atrial fibrillation; J44.1 Chronic obstructive pulmonary disease with (acute) exacerbation; E44.0 Moderate protein-calorie malnutrition; E87.3 Alkalosis; L03.116 Cellulitis of left lower limb; I87.2 Venous insufficiency (chronic) (peripheral); E87.6 Hypokalemia; M10.9 Gout, unspecified; I89.0 Lymphedema, not elsewhere classified; D72.819 Decreased white blood cell count, unspecified; F17.210 Nicotine dependence, cigarettes, uncomplicated; B96.5 Pseudomonas (aeruginosa) (mallei) (pseudomallei) as the cause of diseases classified elsewhere; R79.89 Other specified abnormal findings of blood chemistry; Z91.09 Other allergy status, other than to drugs and biological substances; Z79.01 Long term (current) use of anticoagulants; Z79.899 Other long term (current) drug therapy; Z91.148 Patient's other noncompliance with medication regimen for other reason
CPT/HCPCS: 36415; 36600; 71045; 80048; 80053; 80061; 80076; 82803; 82805; 82947; 83735; 83880; 84100; 84484; 85025; 85027; 85610; 87070; 87205; 93005; 93306; 93971; 94640; 94660; 94760; 96374; 97116; 97161; 97530; 99285; J0692; J1120; J1650; J1938; J2543; J3373; J3475; J3535; J7040; J7605; J7613; J7644; P9047